=== PATIENT | female | born 1960 | race Caucasian/White ===

== ENCOUNTER 2016-06-05 09:50 | Emergency (ER) | payer MEDICARE, MEDICAID ==
--- NOTE | 2016-06-05 09:59 | ED ---
Dizziness - HPI Summary HPI Summary: 56 female presents today complaining of dizziness and nausea that began approximately 1 week ago that has not gotten any better. States the dizziness feels like the room is spinning and comes and goes. The episodes last a few minutes. She has had some nausea but has no vomited. Denies head pain, headache , ear fullness, congestion, sore throat, fever/chills, abdominal pain and trouble going to the bathroom. She does admit to urinary frequency. Admits to Diabetes but does not remember the rest. No chest pain or difficulty breathing. Denies lightheadedness and weakness. Sitting down makes it better. Walking and changing position from sitting to standing makes the dizziness worse. She has not taken any medication for the current symptoms. Also admits to blurry vision sometimes but denies vision loss and hearing loss. - History Of Current Complaint Chief Complaint: EDGeneral Stated Complaint: DIZZY/NAUSEA Time Seen by Provider: 06/05/16 09:58 Hx Obtained From: Patient Onset/Duration: Still Present Timing: Intermittent Episode Lasting - minutes Severity Currently: None Character: Room Spinning, Dizzy Aggravating Factor(s): Position Change Alleviating Factor(s): Rest - sitting down Associated Signs And Symptoms: Positive: Nausea, Decreased Oral Intake - Allergies/Home Medications Allergies/Adverse Reactions: Allergies Allergy/AdvReac Type Severity Reaction Status Date / Time Penicillins Allergy Mild BODY EDEMA Verified 06/05/16 10:22 BEES Allergy Mild BODY EDEMA Uncoded 06/05/16 09:52 PMH/Surg Hx/FS Hx/Imm Hx Endocrine/Hematology History: Reports: Hx Diabetes - TYPE 2 Cardiovascular History: Reports: Hx Hypertension - ON MEDS Denies: Other Cardiovascular Problems/Disorders Respiratory History: Denies: Other Respiratory Problems/Disorders GI History: Reports: Hx Gastroesophageal Reflux Disease Denies: Other GI Disorders Musculoskeletal History: Reports: Hx Tendonitis - RIGHT HAND Sensory History: Reports: Hx Contacts or Glasses - GLASSES Denies: Hx Hearing Aid Opthamlomology History: Reports: Hx Contacts or Glasses - GLASSES Neurological History: Reports: Hx Migraine Denies: Other Neuro Impairments/Disorders - Cancer History Hx Chemotherapy: No Hx Radiation Therapy: No - Surgical History Surgery Procedure, Year, and Place: RIGHT WRIST, 2010, [facility]. GALLBLADDER, 1984, [facility]. 03/18/12, LEFT ELBOW, [facility] Hx Anesthesia Reactions: No Infectious Disease History: No Infectious Disease History: Denies: Traveled Outside the [place] in Last 30 Days - Family History Known Family History: Positive: None - Social History Alcohol Use: None Substance Use Type: Reports: None Hx Tobacco Use: Yes - OCCATIONALLY Amount Used/How Often: 2-3 CIGS A DAY Have You Smoked in the Last Year: Yes Review of Systems Constitutional: Negative Positive: Blurred Vision ENT: Negative Cardiovascular: Negative Respiratory: Negative Positive: Nausea Positive: frequency Musculoskeletal: Negative Skin: Negative Neurological: Negative Psychological: Normal All Other Systems Reviewed And Are Negative: Yes Physical Exam Triage Information Reviewed: Yes Vital Signs On Initial Exam: Initial Vitals Temp Pulse Resp BP Pulse Ox 98.3 F 54 12 118/56 100 06/05/16 09:52 06/05/16 09:52 06/05/16 09:52 06/05/16 09:52 06/05/16 09:52 Vital Signs Reviewed: Yes Appearance: Positive: Well-Appearing, No Pain Distress, Well-Nourished Skin: Positive: Warm, Skin Color Reflects Adequate Perfusion - < 2 seconds, Dry , Other - some tenting of skin, dry mucous membranes Head/Face: Positive: Normal Head/Face Inspection Eyes: Positive: Normal, EOMI, VIANNEY, Conjunctiva Clear ENT: Positive: Normal ENT inspection, Hearing grossly normal, Pharynx normal, TMs normal - no signs of cerumen Dental: Negative: Cervical Lymphadenopathy Neck: Positive: Supple, Nontender Respiratory/Lung Sounds: Positive: Clear to Auscultation, Breath Sounds Present Cardiovascular: Positive: Normal, RRR, Pulses are Symmetrical in both Upper and Lower Extremities - 2+ radial and pedal bilaterally Abdomen Description: Positive: Nontender, No Organomegaly, Soft Bowel Sounds: Positive: Present Musculoskeletal: Positive: Normal, Strength/ROM Intact - both upper and lower extremities Neurological: Positive: Normal, Sensory/Motor Intact, Alert, Oriented to Person Place, Time, CN Intact II-III, Reflexes Intact, NV Bundle Intact Distally, Normal Gait, Finger to Nose - normal, Speech Normal. Negative: Facial Droop, Slurred Speech, Rhom[place], Pronator Drift Present Psychiatric: Positive: Normal, Affect/Mood Appropriate Diagnostics - Vital Signs Vital Signs Temp Pulse Resp BP Pulse Ox 06/05/16 09:52 98.3 F 54 12 118/56 100 - Laboratory Result Diagrams: 06/05/16 10:50 06/05/16 10:50 Lab Statement: Any lab studies that have been ordered have been reviewed, and results considered in the medical decision making process. Re-Evaluation - Re-Evaluation First Eval Re-Evaluation Time: 11:56 Change: Improved Comment: no dizziness and nausea has improved. Dizzy Course/Dx - Course Course Of Treatment: labs and UA obtained. given zofran and fluids. labs and UA were unremarkable. Patient appeared to be in no acute distress and very well- appearing. she has no complaints and vitals signs are completely normal. will be d/c with dx of vertigo and told to follow up with PCP. - Diagnoses Differential Diagnosis/HQI/PQRI: Benign Paroxysmal Positional Vertigo, Hypovolemia, Labyrinthitis, Meniere's Disease, Other Provider Diagnoses: Dizziness, Nausea, Intermittent vertigo Discharge - Discharge Plan Condition: Stable Disposition: HOME Prescriptions: Ondansetron TAB* [Zofran Tab*] 4 mg PO Q6H PRN #3 tab PRN Reason: Nausea Patient Education Materials: Vertigo (ED), Dizziness (ED) Referrals: Criss Lau MD [Primary Care Provider] - Additional Instructions: You may want to try Meclizine OTC during episodes of dizziness. Do not drive during episodes of dizziness. Follow up with your primary care provider if the dizziness persists and for management of vertigo. IF symptoms worsen such as vomiting, increasing dizziness, numbness/tingling, muscle weakness, or slurred speech please return to ED immediately.
[2016-06-05] MEDS ORDERED: NS 0.9% 1000 ML* 1,000 ML IV ONE (10:23)
[2016-06-05] MEDS ORDERED: Ondansetron INJ* 2 MG/ML VIAL IV ONE (10:23)
[2016-06-05 11:06] LABS: Hematocrit 42 % (35-47); Mean Corpuscular HGB Conc 31 g/dl (31-36); Mean Corpuscular Hemoglobin 25 pg (27-31); Mean Corpuscular Volume 80 fL (80-97); Mean Platelet Volume 8 um3 (7.4-10.4); Red Blood Count 5.27 10^6/ul (4.0-5.4); Red Cell Distribution Width 18 % (10.5-15); White Blood Count 9.4 10^3/ul (3.5-10.8)
[2016-06-05 11:18] LABS: ALT 16 U/L (7-52); Albumin 3.6 g/dL (3.2-5.2); Alkaline Phosphatase 90 U/L (34-104); BUN/Creatinine Ratio 17.7 (8-20); Blood Urea Nitrogen 11 mg/dL (6-24); CO2 Carbon Dioxide 25 mmol/L (22-32); Calcium 9.3 mg/dL (8.6-10.3); Chloride 105 mmol/L (101-111); EGFR African American 128.1 (>60); EGFR Non-African American 99.6 (>60); Globulin 3.9 g/dL (2-4); Glucose 83 mg/dL (70-100); Sodium 136 mmol/L (133-145); Total Protein 7.5 g/dL (6.4-8.9)
[2016-06-05 11:27] LABS: Urine Bilirubin Negative (Negative); Urine Glucose Negative (Negative); Urine Nitrite Negative (Negative)
[2016-06-05 11:52] LABS: TSH (Thyroid Stimulating Horm) 2.34 mcIU/mL (0.34-5.60)
[2016-06-05 12:16] VITALS: BP 140/60
== END 2016-06-05 12:16 | disposition home or self-care (01) ==
LOC: ED 09:50
DX: R42 Dizziness and giddiness (principal); R11.0 Nausea; H53.8 Other visual disturbances
CPT/HCPCS: 36415; 80053; 81003; 83605; 84443; 85025; 96374; 99282; J2405

== ENCOUNTER 2016-07-10 22:37 | Inpatient (IN) | payer MEDICARE, MEDICAID ==
[2016-07-10] MEDS ORDERED: Morphine INJ* 2 MG/ML 1 ML SYRINGE IV ONE ×2 (22:43→23:29)
[2016-07-10] MEDS ORDERED: NS 0.9% 1000 ML* 1,000 ML IV ONE (22:43)
[2016-07-10] MEDS ORDERED: Ondansetron INJ* 2 MG/ML VIAL IV ONE (22:43)
[2016-07-10 23:08] LABS: Hematocrit 41 % (35-47); Hemoglobin 13.3 g/dl (12.0-16.0); Mean Corpuscular HGB Conc 32 g/dl (31-36); Mean Corpuscular Hemoglobin 24 pg (27-31); Mean Corpuscular Volume 76 fL (80-97); Mean Platelet Volume 8 um3 (7.4-10.4); Red Blood Count 5.46 10^6/ul (4.0-5.4); Red Cell Distribution Width 17 % (10.5-15); White Blood Count 23.4 10^3/ul (3.5-10.8)
[2016-07-10 23:14] LABS: Add Diff/Slide Review? Slide Review Added; Comments Flag Yes
[2016-07-10 23:21] LABS: Albumin 3.9 g/dL (3.2-5.2); BUN/Creatinine Ratio 10.9 (8-20); C Reactive Protein 47.42 mg/L (< 5.00); Calcium 9.5 mg/dL (8.6-10.3); EGFR Non-African American 114.3 (>60); Globulin 4.2 g/dL (2-4); Magnesium 1.8 mg/dL (1.9-2.7); Potassium 3.4 mmol/L (3.5-5.0); Total Bilirubin 1.4 mg/dL (0.2-1.0); Total Protein 8.1 g/dL (6.4-8.9)
--- NOTE | 2016-07-10 23:41 | ED ---
Murtaza Kang Alok, scribed for Gera Allen MD on 07/10/16 at 2254 . Abdominal Pain/Female - HPI Summary HPI Summary: 56 y/o female presents to the ED with epigastric abd pain beginning at 1200 and remaining constant ever since. Pt states she has taken Tylenol earlier today with no affect and nothing else has help/worsened the pain. Pt states she has been eating regular, soft meals today and last had a BM this morning. She reports some nausea but denies any vomiting, diarrhea, or urinary symptoms. She last saw her PCP 4 days ago for a regular physical. - History of Current Complaint Chief Complaint: EDAbdPain Stated Complaint: ABD PAIN Time Seen by Provider: 07/10/16 22:39 Hx Obtained From: Patient ?: No Onset/Duration: Gradual Onset, Lasting Hours, Still Present Timing: Constant Severity Initially: Moderate Severity Currently: Moderate Pain Intensity: 8 Pain Scale Used: 0-10 Numeric Location: Epigastric Radiates: No Aggravating Factor(s): Nothing Alleviating Factor(s): Nothing Associated Signs and Symptoms: Positive: Nausea. Negative: Urinary Symptoms, Vomiting, Diarrhea Allergies/Adverse Reactions: Allergies Allergy/AdvReac Type Severity Reaction Status Date / Time Penicillins Allergy Mild BODY EDEMA Verified 06/05/16 10:22 BEES Allergy Mild BODY EDEMA Uncoded 06/05/16 09:52 Home Medications: Home Medications Atorvastatin* [Lipitor*] 20 mg PO DAILY 07/11/16 [History Confirmed 07/11/16] Gabapentin CAP(*) [Neurontin 100 mg CAP(*)] 100 mg PO TID 07/11/16 [History Confirmed 07/11/16] Zolmitriptan 5 mg PO BID 07/11/16 [History Confirmed 07/11/16] amLODIPine TAB* [Norvasc TAB*] 2.5 mg PO DAILY 07/11/16 [History Confirmed 07/11] PMH/Surg Hx/FS Hx/Imm Hx Endocrine/Hematology History: Reports: Hx Diabetes - TYPE 2 Cardiovascular History: Reports: Hx Hypertension - ON MEDS Denies: Other Cardiovascular Problems/Disorders Respiratory History: Denies: Other Respiratory Problems/Disorders GI History: Reports: Hx Gastroesophageal Reflux Disease Denies: Other GI Disorders Musculoskeletal History: Reports: Hx Tendonitis - RIGHT HAND Sensory History: Reports: Hx Contacts or Glasses - GLASSES Denies: Hx Hearing Aid Opthamlomology History: Reports: Hx Contacts or Glasses - GLASSES Neurological History: Reports: Hx Migraine Denies: Other Neuro Impairments/Disorders - Cancer History Hx Chemotherapy: No Hx Radiation Therapy: No - Surgical History Surgery Procedure, Year, and Place: RIGHT WRIST, 2010, [facility]. GALLBLADDER, 1985, [facility]. 03/18/12, LEFT ELBOW, [facility] Hx Anesthesia Reactions: No Infectious Disease History: No Infectious Disease History: Denies: Traveled Outside the [place] in Last 30 Days - Family History Known Family History: Negative: Cardiac Disease, Diabetes - Social History Occupation: Employed Part-time Alcohol Use: None Substance Use Type: Reports: None Hx Tobacco Use: Yes - OCCATIONALLY Smoking Status (MU): Never Smoked Tobacco Amount Used/How Often: 2-3 CIGS A DAY Have You Smoked in the Last Year: Yes Review of Systems Negative: Fever Positive: Abdominal Pain, Nausea. Negative: Vomiting, Diarrhea All Other Systems Reviewed And Are Negative: Yes Physical Exam Triage Information Reviewed: Yes Vital Signs On Initial Exam: Initial Vitals Temp Pulse Resp BP Pulse Ox 97.3 F 66 16 136/76 98 07/10/16 22:38 07/10/16 22:38 07/10/16 22:38 07/10/16 22:38 07/10/16 22:38 Vital Signs Reviewed: Yes Appearance: Positive: Ill-Appearing, Pain Distress - moderate discomfort Skin: Positive: Warm Eyes: Positive: VIANNEY ENT: Positive: Hearing grossly normal Neck: Positive: Supple Respiratory/Lung Sounds: Positive: Breath Sounds Present Cardiovascular: Positive: Normal Abdomen Description: Positive: Soft, Guarding, Other: - moderate diffuse tenderness Musculoskeletal: Positive: Strength/ROM Intact Neurological: Positive: Sensory/Motor Intact, Alert, Oriented to Person Place, Time Psychiatric: Positive: Affect/Mood Appropriate Diagnostics - Vital Signs Vital Signs Temp Pulse Resp BP Pulse Ox 07/10/16 22:38 97.3 F 66 16 136/76 98 - Laboratory Lab Results: Lab Results 07/10/16 07/10/16 07/10/16 Range/Units 22:55 22:55 22:55 WBC 23.4 H (3.5-10.8) 10^3/ul RBC 5.46 H (4.0-5.4) 10^6/ul Hgb 13.3 (12.0-16.0) g/dl Hct 41 (35-47) % MCV 76 L (80-97) fL MCH 24 L (27-31) pg MCHC 32 (31-36) g/dl RDW 17 H (10.5-15) % Plt Count 452 H (150-450) 10^3/ul MPV 8 (7.4-10.4) um3 Neut % (Auto) 89.6 H (38-83) % Lymph % (Auto) 5.9 L (25-47) % [place] % (Auto) 3.6 (1-9) % Eos % (Auto) 0.2 (0-6) % Baso % (Auto) 0.7 (0-2) % Absolute Neuts (auto) 21.0 H (1.5-7.7) 10^3/ul Absolute Lymphs (auto) 1.4 (1.0-4.8) 10^3/ul Absolute Monos (auto) 0.8 (0-0.8) 10^3/ul Absolute Eos (auto) 0.1 (0-0.6) 10^3/ul Absolute Basos (auto) 0.2 (0-0.2) 10^3/ul Absolute Nucleated RBC 0 10^3/ul Nucleated RBC % 0 Sodium 133 (133-145) mmol/L Potassium 3.4 L (3.5-5.0) mmol/L Chloride 102 (101-111) mmol/L Carbon Dioxide 20 L (22-32) mmol/L Anion Gap 11 (2-11) mmol/L BUN 6 (6-24) mg/dL Creatinine 0.55 (0.51-0.95) mg/dL Est GFR ( Amer) 147.0 (>60) Est GFR (Non-Af Amer) 114.3 (>60) BUN/Creatinine Ratio 10.9 (8-20) Glucose 164 H (70-100) mg/dL Lactic Acid 1.7 (0.5-2.0) mmol/L Calcium 9.5 (8.6-10.3) mg/dL Magnesium 1.8 L (1.9-2.7) mg/dL Total Bilirubin 1.40 H (0.2-1.0) mg/dL AST 11 L (13-39) U/L ALT 12 (7-52) U/L Alkaline Phosphatase 105 H (34-104) U/L C-Reactive Protein 47.42 H (< 5.00) mg/L Total Protein 8.1 (6.4-8.9) g/dL Albumin 3.9 (3.2-5.2) g/dL Globulin 4.2 H (2-4) g/dL Albumin/Globulin Ratio 0.9 L (1-3) Lipase 15 (11.0-82.0) U/L Result Diagrams: 07/11/16 05:17 07/11/16 05:17 Lab Statement: Any lab studies that have been ordered have been reviewed, and results considered in the medical decision making process. - CT Abd/Pel CT CT Interpretation: Positive (See Comments) - IMPRESSION: SMALL BOWEL OBSTRUCTION WITH PROBABLE RIGHT PELVIC TRANSITION POINT WITHOUT ABSCESS OR FREE AIR CT Interpretation Completed By: Radiologist Re-Evaluation - Re-Evaluation First Eval Re-Evaluation Time: 02:31 - results d/w pt Abdominal Pain Fem Course/Dx - Diagnoses Provider Diagnoses: SBO (small bowel obstruction) - Provider Notifications Discussed Care Of Patient With: Dr. Kim (Surgery) @ 0227. Dr. Decker ( Hospitalist) @ 0228 - Will admit pt Instructed by Provider To: Admit As Inpatient - Critical Care Time Critical Care Time: 30-74 min Discharge - Discharge Plan Condition: Stable Disposition: ADMITTED TO [facility] The documentation as recorded by the Murtaza lee Alok accurately reflects the service I personally performed and the decisions made by , Gera Allen MD.
[2016-07-11 00:31] LABS: Urine Bilirubin Negative (Negative); Urine Glucose Negative (Negative); Urine Nitrite Negative (Negative)
[2016-07-11] MEDS ORDERED: Metoclopramide IV* 5 MG/ML 2 ML VIAL ONE (00:46)
[2016-07-11] MEDS ORDERED: Metoclopramide IV* 5 MG/ML 2 ML VIAL IV ONE ×2 (00:46)
[2016-07-11] MEDS ORDERED: Iodixanol* (CONTRAST) 320 MG/ML 100 ML SDV IV ONE (00:48)
[2016-07-11] MEDS ORDERED: Acetaminophen SUPP* 650 MG SUPP PR PRN (02:38)
[2016-07-11] MEDS ORDERED: NS 0.9% 1000 ML* 1,000 ML IV ONE (02:45)
[2016-07-11] MEDS ORDERED: hydrALAZINE IV* 20 MG/ML VIAL IV PRN (03:03)
--- NOTE | 2016-07-11 03:03 | HP ---
H&P (Free Text) History and Physical: PCP: Marija Lau MD Date/Time of Evaluation: 07/11/2016 0255 CC: abdominal pain HPI: Mrs Clifton is a 56YO female HX borderline cognitive functioning, DM2, HTN, HLD, & open cholecystectomy who is a poor historian, ie when asked if she has had her tonsils out states, "I don't know." She presents 1 week after onset of head cold and congestion which is resolving, but noticing gradually worsening generalized abdominal pain 2 days ago with onset of nausea last night for which she presents. She had F/C with the cold, but none more recently. Last BM was yesterday morning, characterized as normal without black or bloody aspect. She denies similar episodes. Evaluation is notable for a CT abd/pel W read as SBO. Positive SIRS for fever & leukocytosis. PMedHx DM2 w/ peripheral polyneuropathy HTN HLD migraines GERD depression Allergies Penicillins Allergy (Mild, Verified 06/05/16 10:22) BODY EDEMA BODY EDEMA BEES Allergy (Mild, Uncoded 06/05/16 09:52) BODY EDEMA BODY EDEMA Ambulatory Orders Aspirin Low Dose 81 mg PO DAILY 03/11/12 Citalopram TAB* 30 mg PO DAILY 03/11/12 Nexium 40 mg PO DAILY 03/11/12 Propranolol TAB* 80 mg PO DAILY 03/11/12 metFORMIN TAB* 500 mg PO DAILY 03/11/12 Atorvastatin* [Lipitor*] 20 mg PO DAILY 07/11/16 Gabapentin CAP(*) [Neurontin 100 mg CAP(*)] 100 mg PO TID 07/11/16 Zolmitriptan 5 mg PO BID 07/11/16 amLODIPine TAB* [Norvasc TAB*] 2.5 mg PO DAILY 07/11/16 PSurgHx open cholecytstectomy L ulnar nerve release R hand surgeries x2 SocHx: former social smoker, no alcohol or recreational drugs; lives alone; 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; 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 FamHx: positive for unknown cancer, HTN, DM2 ROS: as above, otherwise reviewed and all were negative Constitutional: NAD, normally developed, obese white female vitals: Vital Signs Temp 38.1 C 07/11/16 02:01 Pulse 77 07/11/16 02:00 Resp 16 07/10/16 23:46 BP 127/55 07/11/16 01:57 Pulse Ox 96 07/11/16 02:00 Intake & Output 07/10/16 07/10/16 07/11/16 11:59 23:59 11:59 Weight 82.1 kg 82.1 kg HEENM: atraumatic; sclera/conjunctiva: non-icteric/clear; hearing: clinically intact; oropharynx: clear, mucosa moist Neck: soft tissue: no nuchal rigidity; thyroid: normal Pulmonary: clear to auscultation bilaterally, good aeration, no accessory muscle use CV: RR/RR, normal S1S2, no carotid bruit, no jugular venous distention, 2+ B DP/ PT, no edema Abdominal: soft, non-distended, moderately diffusely tender w/ voluntary guarding but no rebound/rigidity, hypoactive bowel sounds, no hepatosplenomegaly or masses, no costovertebral angle tenderness Musculoskeletal: general: grossly intact; gait: stable Integumental: normal appearance and texture Psychiatric orientation: AA&O to PPS affect: calm mood: cooperative eye contact: fair to good content: disorganized (suspect this is baseline) responses: timely insight: fair to poor Testing: Lab Results 07/10/16 07/10/16 07/10/16 Range/Units 22:55 22:55 22:55 WBC 23.4 H (3.5-10.8) 10^3/ul RBC 5.46 H (4.0-5.4) 10^6/ul Hgb 13.3 (12.0-16.0) g/dl Hct 41 (35-47) % MCV 76 L (80-97) fL MCH 24 L (27-31) pg MCHC 32 (31-36) g/dl RDW 17 H (10.5-15) % Plt Count 452 H (150-450) 10^3/ul MPV 8 (7.4-10.4) um3 Neut % (Auto) 89.6 H (38-83) % Lymph % (Auto) 5.9 L (25-47) % [place] % (Auto) 3.6 (1-9) % Eos % (Auto) 0.2 (0-6) % Baso % (Auto) 0.7 (0-2) % Absolute Neuts (auto) 21.0 H (1.5-7.7) 10^3/ul Absolute Lymphs (auto) 1.4 (1.0-4.8) 10^3/ul Absolute Monos (auto) 0.8 (0-0.8) 10^3/ul Absolute Eos (auto) 0.1 (0-0.6) 10^3/ul Absolute Basos (auto) 0.2 (0-0.2) 10^3/ul Absolute Nucleated RBC 0 10^3/ul Nucleated RBC % 0 Sodium 133 (133-145) mmol/L Potassium 3.4 L (3.5-5.0) mmol/L Chloride 102 (101-111) mmol/L Carbon Dioxide 20 L (22-32) mmol/L Anion Gap 11 (2-11) mmol/L BUN 6 (6-24) mg/dL Creatinine 0.55 (0.51-0.95) mg/dL Est GFR ( Amer) 147.0 (>60) Est GFR (Non-Af Amer) 114.3 (>60) BUN/Creatinine Ratio 10.9 (8-20) Glucose 164 H (70-100) mg/dL Lactic Acid 1.7 (0.5-2.0) mmol/L Calcium 9.5 (8.6-10.3) mg/dL Magnesium 1.8 L (1.9-2.7) mg/dL Total Bilirubin 1.40 H (0.2-1.0) mg/dL AST 11 L (13-39) U/L ALT 12 (7-52) U/L Alkaline Phosphatase 105 H (34-104) U/L C-Reactive Protein 47.42 H (< 5.00) mg/L Total Protein 8.1 (6.4-8.9) g/dL Albumin 3.9 (3.2-5.2) g/dL Globulin 4.2 H (2-4) g/dL Albumin/Globulin Ratio 0.9 L (1-3) Lipase 15 (11.0-82.0) U/L Urine Color Urine Appearance Urine pH (5-9) Ur Specific [place] (1.010-1.030) Urine Protein (Negative) Urine Ketones (Negative) Urine Blood (Negative) Urine Nitrate (Negative) Urine Bilirubin (Negative) Urine Urobilinogen (Negative) Ur Leukocyte Esterase (Negative) Urine Glucose (Negative) 07/11/16 Range/Units 00:10 WBC (3.5-10.8) 10^3/ul RBC (4.0-5.4) 10^6/ul Hgb (12.0-16.0) g/dl Hct (35-47) % MCV (80-97) fL MCH (27-31) pg MCHC (31-36) g/dl RDW (10.5-15) % Plt Count (150-450) 10^3/ul MPV (7.4-10.4) um3 Neut % (Auto) (38-83) % Lymph % (Auto) (25-47) % [place] % (Auto) (1-9) % Eos % (Auto) (0-6) % Baso % (Auto) (0-2) % Absolute Neuts (auto) (1.5-7.7) 10^3/ul Absolute Lymphs (auto) (1.0-4.8) 10^3/ul Absolute Monos (auto) (0-0.8) 10^3/ul Absolute Eos (auto) (0-0.6) 10^3/ul Absolute Basos (auto) (0-0.2) 10^3/ul Absolute Nucleated RBC 10^3/ul Nucleated RBC % Sodium (133-145) mmol/L Potassium (3.5-5.0) mmol/L Chloride (101-111) mmol/L Carbon Dioxide (22-32) mmol/L Anion Gap (2-11) mmol/L BUN (6-24) mg/dL Creatinine (0.51-0.95) mg/dL Est GFR ( Amer) (>60) Est GFR (Non-Af Amer) (>60) BUN/Creatinine Ratio (8-20) Glucose (70-100) mg/dL Lactic Acid (0.5-2.0) mmol/L Calcium (8.6-10.3) mg/dL Magnesium (1.9-2.7) mg/dL Total Bilirubin (0.2-1.0) mg/dL AST (13-39) U/L ALT (7-52) U/L Alkaline Phosphatase (34-104) U/L C-Reactive Protein (< 5.00) mg/L Total Protein (6.4-8.9) g/dL Albumin (3.2-5.2) g/dL Globulin (2-4) g/dL Albumin/Globulin Ratio (1-3) Lipase (11.0-82.0) U/L Urine Color Yellow Urine Appearance Clear Urine pH 7.0 (5-9) Ur Specific [place] 1.008 L (1.010-1.030) Urine Protein Negative (Negative) Urine Ketones 1+ H (Negative) Urine Blood Negative (Negative) Urine Nitrate Negative (Negative) Urine Bilirubin Negative (Negative) Urine Urobilinogen Negative (Negative) Ur Leukocyte Esterase Negative (Negative) Urine Glucose Negative (Negative) CXR, personally reviewed: no acute process CT abd/pel W, personally reviewed: reported as SBO, report pending Impression: 56F HX DM2, HTN, HLD found to have SBO DIAGNOSIS & PLAN Primary SIRS 2nd SBO : NPO for bowel rest : NG to LIS : pain control : empiric ciprofloxacin & metronidazole : strict I&Os : Lizzeth Kim MD surgery consulted by ED, will follow : supportive care Secondary DM2 w/ peripheral polyneuropathy : A1c 6.2 06/2016 : Q4H glucometry while NPO : basal/correctional protocol : hold metformin & gabapentin while NPO HTN : hold anti-hypertensives, PRN IV hydralazine w/ parameters HLD : hold statin while NPO depression : hold citalopram while NPO GERD : IV pantoprazole Admission Rational: inpatient for medical management of SBO not anticipated to resolve adequately to allow discharge w/i 48h DVTp: heparin SQ & SCDS Code Status: full
[2016-07-11] MEDS ORDERED: Ciprofloxacin IV(*) 400 MG in D5W 250 ML BAG* 160 ML IVPB SCH (03:30)
[2016-07-11] MEDS ORDERED: PROCHLORPERAZINE INJ 5 MG/ML 2 ML VIAL IV PRN (03:48)
[2016-07-11] MEDS: Ondansetron INJ* 2 MG/ML VIAL IV PRN ×2 (04:43→12:03)
[2016-07-11] MEDS: HYDROmorphone* 1 MG/ML 1 ML SYR IV PRN ×2 (04:44→20:00)
[2016-07-11] MEDS: Insulin LISPRO* 1 UNITS UNIT SUBCUT SCH ×5 (04:47→19:56)
[2016-07-11] MEDS: Pantoprazole IV* 40 MG IV SCH ×2 (04:47→09:07)
[2016-07-11] MEDS: Ciprofloxacin IV(*) 400 MG in D5W 250 ML BAG* 160 ML IVPB SCH ×2 (04:52→17:30)
[2016-07-11 05:44] LABS: Hematocrit 39 % (35-47); Hemoglobin 12.3 g/dl (12.0-16.0); Mean Corpuscular HGB Conc 32 g/dl (31-36); Mean Corpuscular Hemoglobin 24 pg (27-31); Mean Corpuscular Volume 76 fL (80-97); Mean Platelet Volume 8 um3 (7.4-10.4); Red Blood Count 5.06 10^6/ul (4.0-5.4); Red Cell Distribution Width 17 % (10.5-15); White Blood Count 24.3 10^3/ul (3.5-10.8)
[2016-07-11 05:50] LABS: Add Diff/Slide Review? Slide Review Added; Comments Flag Yes
[2016-07-11] MEDS: metroNIDAZOLE IV 500 MG/100ML* 500 MG/100 ML BAG IVPB SCH ×3 (05:57→22:37)
[2016-07-11 06:03] LABS: BUN/Creatinine Ratio 10.6 (8-20); Calcium 8.8 mg/dL (8.6-10.3); EGFR African American 176.3 (>60); EGFR Non-African American 137.1 (>60); Magnesium 1.8 mg/dL (1.9-2.7); Potassium 3.3 mmol/L (3.5-5.0)
[2016-07-11] MEDS: NS 0.9% 1000 ML* 1,000 ML IV SCH (07:34)
--- NOTE | 2016-07-11 08:05 | RAD ---
INDICATION: Fever COMPARISON: November 20, 2013 TECHNIQUE: PA and lateral dual-energy views were obtained. FINDINGS: Bones/Soft Tissues: There are no acute bony findings. Cardiomediastinal: The cardiomediastinal silhouette is normal. Lungs: There are no infiltrates. Pleura: There are no pleural effusions. Other: There are clips in the gallbladder fossa. IMPRESSION: NO ACTIVE DISEASE
--- NOTE | 2016-07-11 08:48 | RAD ---
INDICATION: Small bowel obstruction COMPARISON: None TECHNIQUE: Erect and supine views of the abdomen are submitted. FINDINGS: Bones: There are no acute bony findings. Soft tissues: The soft tissues appear normal. The psoas margins are sharp. Bowel gas pattern: There are scattered air-fluid levels with dilated small bowel loops in central abdomen. The colon appears largely decompressed. The findings are compatible with small bowel obstruction. Calcifications: There are no abnormal calcifications. Other: There are clips in the gallbladder fossa. IMPRESSION: SMALL BOWEL OBSTRUCTION. SUGGEST FOLLOW-UP.
[2016-07-11] MEDS: KCL 10 MEQ/50 ML IVPREMIX* 10 MEQ/50 ML BAG IV SCH ×2 (09:03→12:03)
--- NOTE | 2016-07-11 09:25 | CONS ---
SURGICAL CONSULTATION: DATE OF CONSULT: 07/11/16 REASON FOR CONSULTATION: Small bowel obstruction. HISTORY OF PRESENT ILLNESS: This is a 56-year-old female who was admitted to the [facility] after presenting to the emergency room last night with abdominal pain of 2 days' duration. She has a history of prior open cholecystectomy, no other surgeries. She has a borderline cognitive function. She had worsening pain, nausea and no vomiting. She had a bowel movement Ritu morning which was normal. She does not recall the last time she passed flatus. In the emergency room, the patient underwent evaluation by emergency department staff and was found to have elevated WBCs at 23.4. She had CT scan performed which showed small bowel obstruction with probable right pelvic transition point without abscess or free air. The patient was made NPO. A nasogastric tube was apparently placed but the patient did not tolerate this and is refusing at the present. The patient was admitted to the hospitalist service and started on IV antibiotics. PAST MEDICAL HISTORY: 1. Significant for obesity. 2. Type 2 diabetes with peripheral polyneuropathy. 3. Hypertension. 4. Hyperlipidemia. 5. Migraines. 6. Gastroesophageal reflux disease. 7. Depression. PAST SURGICAL HISTORY: Open cholecystectomy in the . HOME MEDICATIONS: 1. Gabapentin. 2. Amlodipine. 3. Zolmitriptan. 4. Lipitor. 5. Aspirin. 6. Propranolol. 7. Nexium. 8. Metformin. 9. Citalopram. ALLERGIES: PENICILLINS cause swelling. FAMILY HISTORY: Cancer, hypertension, diabetes. SOCIAL HISTORY: No tobacco, alcohol or drug use. Lives alone. PHYSICAL EXAMINATION: T-max 100.5, T-current 97.7, pulse 89, respirations 16, blood pressure 136/58, O2 sat 99% on room air. Head appears normocephalic and sclerae anicteric. Mucous membranes appear moist. The lungs are clear bilaterally. Heart: Regular. S1, S2. Abdomen has well healed scar right upper quadrant. Bowel sounds are diminished throughout. Abdomen is not distended. There is diffuse tenderness to light and deep palpation with also tenderness to percussion. Extremities are warm. DIAGNOSTIC STUDIES/LAB DATA: WBCs 24.3, hemoglobin 12.3, hematocrit 39, platelets 377. Chemistry, sodium 136, potassium 3.3, chloride 106, bicarb 21, BUN 5, creatinine 0.47, glucose 177. Urinalysis 1+ ketones, otherwise negative. Radiology report: Preliminary findings as reported above. IMPRESSION: This 56-year-old female with cognitive disability, history of open cholecystectomy and findings of complete small bowel obstruction on CT scan. She has leukocytosis and has had a fever. She likely will require operative intervention to resolve this process. PLAN/RECOMMENDATIONS: I discussed my concerns with the patient. I explained that nasogastric tube decompression may be helpful. However, she again refused this. I will order repeat abdominal series to see if there is any improvement in her obstruction, although I suspect not. [facility] will follow subsequently and if she is not improved or worsened, she will require surgical exploration. [id number]/[facility] #: [id number] EBENEZER
--- NOTE | 2016-07-11 09:37 | RAD ---
INDICATION: Abdominal pain. COMPARISON: There are no prior studies available for comparison. TECHNIQUE: A CT scan of the abdomen and pelvis was performed with intravenous and oral contrast following intravenous injection of 100 ml of Visipaque 320 nonionic contrast. Contiguous axial sections were obtained from the lung bases through the symphysis pubis. Images were reconstructed in the coronal and sagittal planes. FINDINGS: The lung bases are clear. No pleural effusion is present. The liver and spleen are normal in size. The liver is decreased in attenuation consistent with fatty infiltration. No significant focal abnormality is seen. The patient is status post cholecystectomy. The pancreas appears to be within normal limits. The kidneys and adrenal glands are normal in size. No hydronephrosis is seen. No significant focal renal abnormality is seen. The aorta is normal in caliber and demonstrates homogeneous contrast opacification. No significant enlarged retroperitoneal lymph nodes are seen. The stomach is moderately distended. There is mild to moderate distention of the mid and distal small bowel with transition point in the right lower quadrant. There is suggestion of a smaller blind-ending loop with calcifications possibly representing a Meckel's diverticulum. There is mild mesenteric edema. The appendix is within normal limits. There is a small amount of air within the colon. There is no evidence for diverticulitis or colitis. The uterus is anteverted and normal in size. There is suggestion of a fibroid arising from the fundus of the uterus on the right side measuring 2.3 x 1.5 cm in size. No free intraperitoneal air or fluid is seen. No significant focal osseous abnormality is seen. The results of this exam were called to Dr. Flores. IMPRESSION: MODERATE GRADE DISTAL SMALL BOWEL OBSTRUCTION. THERE IS AN ADJACENT STRUCTURE WITH A BLIND ENDING LOOP SUGGESTING THE POSSIBILITY OF A MECKEL'S DIVERTICULUM.
[2016-07-11] MEDS: Metoprolol Tartrate IV* 1 MG/ML 5 ML VIAL IV SCH ×3 (09:56→22:33)
[2016-07-11] MEDS ORDERED: Bupivacaine 0.25% EPI 200,000* 30 ML SDV ONE (12:24)
[2016-07-11] MEDS ORDERED: metroNIDAZOLE IV 500 MG/100ML* 500 MG/100 ML BAG IVPB ONE ×2 (12:38→13:00)
[2016-07-11] MEDS ORDERED: Midazolam* 1 MG/ML 5 ML VIAL (5 MG) ONE (12:43)
[2016-07-11] MEDS ORDERED: Succinylcholine* 20 MG/ML 10 ML VIAL ONE (12:47)
[2016-07-11] MEDS ORDERED: fentaNYL* 50 MCG/ML 2 ML VIAL (100 MCG VIAL) ONE (12:47)
[2016-07-11] MEDS ORDERED: Atracurium* 10 MG/ML 10 ML VIAL ONE (12:47)
[2016-07-11] MEDS ORDERED: Propofol* 10 MG/ML 20 ML BTL IV PUSH ONE (12:47)
[2016-07-11] MEDS ORDERED: GENTAMICIN ADULT IVPB ONE (13:00)
[2016-07-11] MEDS ORDERED: NS 0.9% IVPB ONE (13:00)
[2016-07-11] MEDS ORDERED: fentaNYL* 50 MCG/ML 5 ML VIAL (250 MCG VIAL) ONE (13:37)
--- NOTE | 2016-07-11 14:41 | PN ---
Subjective Date of Service: 07/11/16 Interval History: Pt c/o RLQ abd pain x 2 days. Last BM this aM. Objective Active Medications: Acetaminophen (Tylenol Supp*) 650 mg CA Q6H PRN PRN Reason: FEVER/PAIN Hydralazine HCl (Apresoline Iv*) 10 mg IV Q4H PRN PRN Reason: Systolic >170 Hydromorphone HCl (Dilaudid Iv*) 0.5 mg IV Q3H PRN PRN Reason: PAIN Last Admin: 07/11/16 04:44 Dose: 0.5 mg Sodium Chloride (Ns 0.9% 1000 Ml*) 1,000 mls @ 125 mls/hr IV PER RATE [facility] Last Admin: 07/11/16 07:34 Dose: 125 mls/hr Metronidazole/Sodium Chloride (Flagyl 500 Mg Ivpb*) 500 mg in 100 mls @ 100 mls /hr IVPB Q8H [facility] Last Admin: 07/11/16 05:57 Dose: 100 mls/hr Ciprofloxacin 400 mg/ Dextrose 200 mls @ 200 mls/hr IVPB 0430,1630 [facility] Last Admin: 07/11/16 04:52 Dose: 200 mls/hr Insulin Glargine (Lantus(*)) 20 units SUBCUT 2100 ANNA Stop: 07/12/16 20:00 Insulin Human Lispro (Humalog*) 0 units SUBCUT Q4H ANNA PRN Reason: Protocol Last Admin: 07/11/16 12:12 Dose: Not Given Metoprolol Tartrate (Lopressor Iv*) 5 mg IV Q6H [facility] Last Admin: 07/11/16 09:56 Dose: 5 mg Ondansetron HCl (Zofran Inj*) 4 mg IV Q6H PRN PRN Reason: NAUSEA Last Admin: 07/11/16 12:03 Dose: 4 mg Pantoprazole Sodium (Protonix Iv*) 40 mg IV DAILY [facility] Last Admin: 07/11/16 09:07 Dose: 40 mg Prochlorperazine Edisylate (Compazine Inj*) 10 mg IV Q6H PRN PRN Reason: NAUSEA Last Admin: 07/11/16 09:03 Dose: 10 mg Vital Signs 07/11/16 07/11/16 07/11/16 03:27 03:31 03:38 Temperature 97.7 F Pulse Rate 89 Respiratory 14 Rate Blood Pressure 136/58 (mmHg) O2 Sat by Pulse 99 Oximetry 07/11/16 07/11/16 07/11/16 03:52 04:01 04:44 Temperature 97.9 F 97.9 F Pulse Rate 84 84 Respiratory 16 18 18 Rate Blood Pressure 130/55 130/55 (mmHg) O2 Sat by Pulse 100 100 Oximetry 07/11/16 07/11/16 07/11/16 05:44 07:20 07:55 Temperature 98.7 F 98.5 F Pulse Rate 85 85 Respiratory 16 16 20 Rate Blood Pressure 130/73 126/82 (mmHg) O2 Sat by Pulse 97 95 Oximetry Oxygen Devices in Use Now: None Appearance: 56 yo F in nAd, aAOx3 Eyes: No Scleral Icterus, PERRLA Ears/Nose/Mouth/Throat: NL Teeth, Lips, Gums, Mucous Membranes Moist Neck: NL Appearance and Movements; NL JVP, Trachea Midline Respiratory: Symmetrical Chest Expansion and Respiratory Effort, Clear to Auscultation Cardiovascular: NL Sounds; No Murmurs; No JVD, RRR Abdominal: - - diffuse distention and tenderness, most tender at RLQ, BS hypoactive, no rebound, no guarding Lymphatic: No Cervical Adenopathy Extremities: No Edema, No Clubbing, Cyanosis Skin: No Rash or Ulcers, No Nodules or Sclerosis Neurological: Alert and Oriented x 3, NL Muscle Strength and Tone Result Diagrams: 07/11/16 05:17 07/11/16 05:17 Additional Lab and Data: Lab Results 07/10/16 07/10/16 07/10/16 Range/Units 22:55 22:55 22:55 WBC 23.4 H (3.5-10.8) 10^3/ul RBC 5.46 H (4.0-5.4) 10^6/ul Hgb 13.3 (12.0-16.0) g/dl Hct 41 (35-47) % MCV 76 L (80-97) fL MCH 24 L (27-31) pg MCHC 32 (31-36) g/dl RDW 17 H (10.5-15) % Plt Count 452 H (150-450) 10^3/ul MPV 8 (7.4-10.4) um3 Neut % (Auto) 89.6 H (38-83) % Lymph % (Auto) 5.9 L (25-47) % [place]leigh % (Auto) 3.6 (1-9) % Eos % (Auto) 0.2 (0-6) % Baso % (Auto) 0.7 (0-2) % Absolute Neuts (auto) 21.0 H (1.5-7.7) 10^3/ul Absolute Lymphs (auto) 1.4 (1.0-4.8) 10^3/ul Absolute Monos (auto) 0.8 (0-0.8) 10^3/ul Absolute Eos (auto) 0.1 (0-0.6) 10^3/ul Absolute Basos (auto) 0.2 (0-0.2) 10^3/ul Absolute Nucleated RBC 0 10^3/ul Nucleated RBC % 0 Sodium 133 (133-145) mmol/L Potassium 3.4 L (3.5-5.0) mmol/L Chloride 102 (101-111) mmol/L Carbon Dioxide 20 L (22-32) mmol/L Anion Gap 11 (2-11) mmol/L BUN 6 (6-24) mg/dL Creatinine 0.55 (0.51-0.95) mg/dL Est GFR ( Amer) 147.0 (>60) Est GFR (Non-Af Amer) 114.3 (>60) BUN/Creatinine Ratio 10.9 (8-20) Glucose 164 H (70-100) mg/dL Lactic Acid 1.7 (0.5-2.0) mmol/L Calcium 9.5 (8.6-10.3) mg/dL Magnesium 1.8 L (1.9-2.7) mg/dL Total Bilirubin 1.40 H (0.2-1.0) mg/dL AST 11 L (13-39) U/L ALT 12 (7-52) U/L Alkaline Phosphatase 105 H (34-104) U/L C-Reactive Protein 47.42 H (< 5.00) mg/L Total Protein 8.1 (6.4-8.9) g/dL Albumin 3.9 (3.2-5.2) g/dL Globulin 4.2 H (2-4) g/dL Albumin/Globulin Ratio 0.9 L (1-3) Lipase 15 (11.0-82.0) U/L Assess/Plan/Problems-Billing Assessment: 56 yo F with h/o migraines, borderline cognitive functioning, HTN, DM presents with SBO - Patient Problems (1) SBO (small bowel obstruction) Comment: May be secondary to Meckel's diverticulum. D/w Dr. Flores . Plan for OR today. Cont IV antibiotics(Cipro, Flegyl) for SIRS due to SBO (2) DM type 2 (diabetes mellitus, type 2) Comment: cont ISS due to NPO status (3) HTN (hypertension) Comment: holding PO meds cont IV lopressor periop (4) DVT prophylaxis Comment: heparin held preop Status and Disposition: Inpatient
[2016-07-11] MEDS ORDERED: Neostigmine Methylsulfate* 2 MG/2 ML SYRINGE ONE (15:05)
[2016-07-11] MEDS ORDERED: Glycopyrrolate IV* 0.2 MG/ML 1 ML VIAL ONE (15:05)
--- NOTE | 2016-07-11 15:25 | SURGPN ---
Brief Operative Note - Surgery Procedures: Procedures OPERATIVE REPORT PRE-OP: 1.Abdominal pain, leukocytosis, small bowel obstruction POST-OP: 1. Same 2. Gangrenous Meckel's diverticulum causing small bowel obstruction PROCEDURE: Diagnostic laparoscopy, lysis of adhesions, small bowel resection with primary anastomosis SURGEON: MD Sandra ANESTHESIA: General with local with Dr. Herbert ASST: PRECIOUS Cervantes IVF: 2 Liters of crystalloid EBL: 100 cc SPECIMEN: portion of ileum DRAIN: none WOUND CLASS: 3 COMPLICATIONS: none TO PACU
[2016-07-11] MEDS ORDERED: DiMENhydriNATE IV* 50 MG/ML VIAL IV PUSH PRN (15:49)
[2016-07-11] MEDS ORDERED: fentaNYL* 50 MCG/ML 2 ML VIAL (100 MCG VIAL) IV PRN (15:49)
[2016-07-11] MEDS ORDERED: HYDROmorphone* 1 MG/ML 1 ML SYR IV PRN (15:49)
[2016-07-11] MEDS ORDERED: Ondansetron INJ* 2 MG/ML VIAL IV PRN (15:49)
[2016-07-11] MEDS ORDERED: HYDROmorphone PCA* 20 MG/20 ML PCA.SYRING PCA SCH (16:00)
[2016-07-11] MEDS ORDERED: Insulin GLARGINE(*) 1 UNITS UNIT SUBCUT SCH (21:00)
[2016-07-11] MEDS: Heparin VIAL(*) 5000 UNITS/ML VIAL (FIVE THOUSAND) SUBCUT SCH (22:35)
[2016-07-12] MEDS: Insulin LISPRO* 1 UNITS UNIT SUBCUT SCH ×6 (00:03→19:59)
[2016-07-12] MEDS: HYDROmorphone* 1 MG/ML 1 ML SYR IV SLOW PU PRN ×5 (02:28→20:53)
[2016-07-12] MEDS: NS 0.9% 1000 ML* 1,000 ML IV SCH ×3 (02:53→21:56)
[2016-07-12] MEDS: Metoprolol Tartrate IV* 1 MG/ML 5 ML VIAL IV SCH ×4 (03:40→20:56)
--- NOTE | 2016-07-12 04:04 | OP ---
DATE OF OPERATION: 07/11/16 - ROOM #350 DATE OF : 60 SURGEON: Parth Flores MD ETYMOLOGY TEACHER: PRECIOUS Wolfe ANESTHESIOLOGIST: Dr. Herbert. ANESTHESIA: General with local. PRE-OP DIAGNOSES: 1. Small bowel obstruction. 2. Acute surgical abdomen. 3. Leukocytosis. POST-OP DIAGNOSES: 1. Small bowel obstruction. 2. Gangrenous torsed Meckel's diverticulum causing near complete small bowel obstruction. OPERATIVE PROCEDURE: Diagnostic laparoscopy with conversion to open exploratory laparotomy, lysis of adhesions and small bowel resection with primary stapled anastomosis. ESTIMATED BLOOD LOSS: 100 cc. IV FLUIDS: 2 L of crystalloid. URINE OUTPUT: 300 cc. SPECIMENS: Portion of distal ileum. WOUND CLASSIFICATION: III. COMPLICATIONS: None. DRAINS: None. BRIEF HISTORY: Ms. Odessa Clifton is a 56-year-old woman who had undergone an open cholecystectomy in the past who presented to the emergency room with several days of worsening abdominal discomfort that was generalized. This was associated with nausea without vomiting and did not had diarrhea or change in bowel habits. She was noted to be afebrile. However, had generalized abdominal discomfort and a white blood cell count of 23,000. She underwent a CT scan of the abdomen and pelvis, which showed findings consistent with a small bowel obstruction with a transition zone in the right lower quadrant with distal collapsed bowel and what appeared to be Meckel's diverticulum without evidence of diverticulitis. There were no other acute findings. She was admitted to the medical service and surgical consultation was obtained. Chest x-ray was unremarkable. On exam, she was noted to have diffuse generalized tenderness with guarding and peritoneal signs. There were no obvious hernias and diminished bowel sounds throughout. She had a well-healed right upper quadrant transverse incision without hernia. After review of her history, clinical exam, and persistent leukocytosis overnight and findings on the CT scan consistent with at least a small bowel obstruction and the concern of the acute surgical abdomen, she is being taken to the operating room. She was recommended to be taken to the operating room today for probable exploratory laparotomy. The recommendation and the procedure was discussed with both the patient and her sister and the risks are but not limited to bleeding, infection, intraabdominal abscess formation, injury to peritoneal and retroperitoneal structures, possibility of an open procedure, possibility of bowel resection, possible ostomy well explained depending on the findings at exploration. In addition to the risks of general anesthesia, wound infection, prolonged hospital stay with organ failure were all discussed. After a long discussion, it was felt that the benefits outweigh the risks and the patient gives her consent to proceed. I also discussed her care with her sister Yuly Crook and explained all of the above to her. DESCRIPTION OF PROCEDURE: Written and informed consent was obtained. Preoperative antibiotics were administered and the abdomen was marked with indelible ink. The patient was taken to the operating room, placed in a supine position. Sequential compression devices and a warming blanket were applied. General anesthesia was administered and a Agarwal catheter was inserted. The abdomen was prepped and draped in the usual sterile fashion. Time-out verification was completed. Next, a small incision was made vertically just above the umbilicus and the midline fascia was divided and the peritoneal cavity was entered under direct vision. A 12- mm blunt port was inserted and the abdomen was insufflated to 15 mmHg. A camera was inserted. There was some serosanguineous ascitic fluid throughout all 4 quadrants of the abdomen with some distended small bowel proximally. In the right lower quadrant surrounded by some matted bowel with fibrinous exudate noted and what appeared to be a loop of gangrenous small intestine which I was not able to completely evaluate with a laparoscope. Thus, a decision at this point was made to proceed with an open exploratory laparotomy. Ports were then removed and a vertical incision was made centered above the umbilicus and extended more towards the pubis as the case progressed and the abdominal cavity was entered. It was obvious that there were some significant dense adhesions in the right upper quadrant from the previous cholecystectomy. They involved small bowel and I did tediously lyse the small bowel adhesions, so that we could adequately follow this distended bowel distally and explore the area in the right lower quadrant. There were several serosal tears made, but no transmural injury. The colon was not involved in the right upper quadrant adhesions and the omentum was quite foreshortened and really not present. Once these adhesions had been free, I was able to run the small bowel from the ligament of Treitz and it was distended down into an area of about 30 cms proximal to the ileocecal valve. There was an area of obstruction with distally collapsed bowel and at this point, I recognized a Meckel's diverticulum , it was approximately 6 inches in length, which was gangrenous and very edematous without evidence of perforation. The small bowel had adhered to this in several areas. At one point, had kinked the bowel causing the obstruction. I was able to free this obstruction up easily with digital dissection and exposed the gangrenous Meckel's diverticulum, which was actually quite impressive. I was able to then run the small bowel down to the terminal ileum, which was another foot and a half or so. The appendix appeared to be normal. The right colon and transverse colon were unremarkable. I was also able to visualize the uterus, ovaries, which were all normal as well. No other acute finding was noted. I did not adequately visualize the liver, however, due to the adhesive disease. At this point, I was fortunate to realize that the serosal tears that I had made in the small bowel excising the adhesions were within about 6 inches of the Meckel's diverticulum and I made a decision to proceed with a small bowel resection to include the serosal tears.Thus, an area of healthy bowel both proximal and distal to the Meckel's was then identified and a total of about 13 inches of small bowel was removed. This proximal and distal bowel were divided with the LISA 80 blue load stapler. The mesentry was divided with the LigaSure device. The specimen was handed off and sent in formalin to pathology. Both proximal and distal bowel limbs appeared to be viable and an anastomosis was fashioned using the LISA 80 blue load stapler in a [id number] fashion and the common run was closed with the TA 90 blue load. This staple line was oversewn with interrupted inverting 3-0 silk sutures. The anastomosis appeared to be widely patent and all bowel was viable, appeared to be under no tension. The small mesenteric run was then closed with running 2-0 Polysorb suture. The bowel was placed back in the abdominal cavity. The entire abdomen was irrigated with saline and hemostasis was assured. All sponge, needle, and instrument counts were reported as correct. The midline fascia was closed with interrupted #1 Polysorb suture. The skin was approximated with a stapling device. Dry sterile dressings were applied. The patient tolerated the procedure well and was taken to the recovery room in stable condition. CC: [facility]; Dr. Criss Lau* [id number]/[facility] #: [id number] REEDD
[2016-07-12] MEDS: Ciprofloxacin IV(*) 400 MG in D5W 250 ML BAG* 160 ML IVPB SCH ×2 (04:24→17:02)
[2016-07-12] MEDS ORDERED: Heparin VIAL(*) 5000 UNITS/ML VIAL (FIVE THOUSAND) SUBCUT SCH (06:00)
[2016-07-12] MEDS: metroNIDAZOLE IV 500 MG/100ML* 500 MG/100 ML BAG IVPB SCH ×3 (06:02→22:07)
[2016-07-12] MEDS: Heparin VIAL(*) 5000 UNITS/ML VIAL (FIVE THOUSAND) SUBCUT SCH ×3 (06:02→21:55)
--- NOTE | 2016-07-12 07:52 | PN ---
Progress Note - Progress Note SOAP: Subjective: Doing well-has been out of bed several times No SOB or CP Tolerating small amounts of liquids Pain is adequately controlled Objective: Temp Pulse Resp BP Pulse Ox 99.2 F 80 16 132/68 97 07/12/16 07:35 07/12/16 07:35 07/12/16 07:35 07/12/16 07:35 07/12/16 07:35 Intake & Output 07/10/16 07/11/16 07/12/16 07/13/16 06:59 06:59 06:59 06:59 Intake Total 50 5416 Output Total 200 1025 Balance -150 4391 Weight 178 lb 6.4 oz Intake: IV Fluids 50 4786 ABX - CIPROFLOXACIN 415 ABX - FLAGYL 109 LR 2300 NS (0.9%) 1962 IVPB 220 ABX - CIPROFLOXACIN 110 ABX - FLAGYL 110 Oral 0 410 Output: NG Tube Drainage Amount 200 Dunn 1025 Other: # Bowel Movements 0 0 # Voids 0 3 PEX: Comfortable Lungs are CTA Abd is soft and slightly distended. Dressing intact. No bowel sounds present. Extremities without edema Labs are pending Assessment: POD #1 s/p exlap with small bowel resection for torsed gangrenous Meckel's diverticulum causing small bowel obstruction DM Post-op ileus Plan: D/C dunn Sips of clear liquids IVF Increase activity Pulmonary toilet PPI and sub heparin Check labs today.
[2016-07-12] MEDS: Pantoprazole IV* 40 MG IV SCH (09:59)
[2016-07-12 10:11] LABS: Hematocrit 36 % (35-47); Hemoglobin 11.2 g/dl (12.0-16.0); Mean Corpuscular HGB Conc 31 g/dl (31-36); Mean Corpuscular Hemoglobin 24 pg (27-31); Mean Corpuscular Volume 77 fL (80-97); Mean Platelet Volume 8 um3 (7.4-10.4); Red Blood Count 4.62 10^6/ul (4.0-5.4); Red Cell Distribution Width 17 % (10.5-15); White Blood Count 17.3 10^3/ul (3.5-10.8)
[2016-07-12 10:30] LABS: Albumin 2.9 g/dL (3.2-5.2); BUN/Creatinine Ratio 7.3 (8-20); Calcium 8.2 mg/dL (8.6-10.3); EGFR Non-African American 114.3 (>60); Globulin 3.3 g/dL (2-4); Potassium 3.3 mmol/L (3.5-5.0); Total Bilirubin 1.5 mg/dL (0.2-1.0); Total Protein 6.2 g/dL (6.4-8.9)
[2016-07-12] MEDS: KCL 20 MEQ/100 ML IVPREMIX* 20 MEQ/100 ML BAG IV SCH ×2 (11:57→18:11)
--- NOTE | 2016-07-12 13:37 | PN ---
Subjective Date of Service: 07/12/16 Interval History: Pt feels that her abdomen is "sore". Does well with sips of water Objective Active Medications: Acetaminophen (Tylenol Supp*) 650 mg [place] Q6H PRN PRN Reason: FEVER/PAIN Heparin Sodium (Porcine) (Heparin Vial(*)) 5,000 units SUBCUT Q8HR [facility] [place] Last Admin: 07/12/16 06:02 Dose: 5,000 units Hydralazine HCl (Apresoline Iv*) 10 mg IV Q4H PRN PRN Reason: Systolic >170 Hydromorphone HCl (Dilaudid Iv*) 0.5 mg IV SLOW PU Q1H PRN PRN Reason: PAIN Last Admin: 07/12/16 13:05 Dose: 0.5 mg Sodium Chloride (Ns 0.9% 1000 Ml*) 1,000 mls @ 125 mls/hr IV PER RATE [facility] [place] Last Admin: 07/12/16 12:01 Dose: 125 mls/hr Metronidazole/Sodium Chloride (Flagyl 500 Mg Ivpb*) 500 mg in 100 mls @ 100 mls /hr IVPB Q8H [facility] [place] Last Admin: 07/12/16 06:02 Dose: 100 mls/hr Ciprofloxacin 400 mg/ Dextrose 200 mls @ 200 mls/hr IVPB 0430,1630 [facility] [place] Last Admin: 07/12/16 04:24 Dose: 200 mls/hr Hydromorphone HCl (Dilaudid Scale Attendant*) 20 mg in 20 mls @ 0 mls/hr JIG BUILDER HELPER .change Q24H [facility] [place]; Per Protocol PRN Reason: Protocol Potassium Chloride (Potassium Chloride 20 Meq/100 Ml Ivpremix*) 20 meq in 100 mls @ 50 mls/hr IV Q2H [facility] [place] Stop: 07/12/16 14:59 Last Admin: 07/12/16 11:57 Dose: 25 mls/hr Insulin Human Lispro (Humalog*) 0 units SUBCUT Q4H [facility] PRN Reason: Protocol Last Admin: 07/12/16 11:55 Dose: Not Given Metoprolol Tartrate (Lopressor Iv*) 5 mg IV Q6H [facility] [place] Last Admin: 07/12/16 09:59 Dose: 5 mg Ondansetron HCl (Zofran Inj*) 4 mg IV Q6H PRN PRN Reason: NAUSEA Last Admin: 07/11/16 12:03 Dose: 4 mg Pantoprazole Sodium (Protonix Iv*) 40 mg IV DAILY [facility] Last Admin: 07/12/16 09:59 Dose: 40 mg Prochlorperazine Edisylate (Compazine Inj*) 10 mg IV Q6H PRN PRN Reason: NAUSEA Last Admin: 07/11/16 09:03 Dose: 10 mg Vital Signs 07/11/16 07/11/16 07/11/16 15:26 15:30 15:35 Temperature 98.4 F Pulse Rate 98 105 106 Respiratory 16 18 18 Rate Blood Pressure 159/97 164/87 169/78 (mmHg) O2 Sat by Pulse 97 100 100 Oximetry 07/11/16 07/11/16 07/11/16 15:40 15:45 16:00 Temperature Pulse Rate 96 98 102 Respiratory 20 20 18 Rate Blood Pressure 155/81 158/87 160/85 (mmHg) O2 Sat by Pulse 98 98 99 Oximetry 07/11/16 07/11/16 07/11/16 16:15 17:00 17:43 Temperature 97.9 F 97.6 F 98.8 F Pulse Rate 96 94 89 Respiratory 18 16 18 Rate Blood Pressure 158/87 138/77 141/80 (mmHg) O2 Sat by Pulse 100 95 100 Oximetry 07/11/16 07/11/16 07/11/16 18:45 19:33 19:38 Temperature 97.3 F Pulse Rate 89 Respiratory 17 20 20 Rate Blood Pressure 137/65 (mmHg) O2 Sat by Pulse 100 97 Oximetry 07/11/16 07/11/16 07/11/16 20:00 20:45 21:00 Temperature 98.0 F Pulse Rate 94 Respiratory 20 20 16 Rate Blood Pressure 138/69 (mmHg) O2 Sat by Pulse 99 Oximetry 07/11/16 07/11/16 07/12/16 22:42 23:58 02:28 Temperature 98.5 F 98.6 F Pulse Rate 82 90 Respiratory 20 16 20 Rate Blood Pressure 138/70 133/55 (mmHg) O2 Sat by Pulse 100 99 Oximetry 07/12/16 07/12/16 07/12/16 03:27 03:28 07:35 Temperature 99.8 F 99.2 F Pulse Rate 102 80 Respiratory 18 18 16 Rate Blood Pressure 122/67 132/68 (mmHg) O2 Sat by Pulse 99 97 Oximetry 07/12/16 07/12/16 07/12/16 08:00 08:30 09:30 Temperature Pulse Rate Respiratory 16 18 18 Rate Blood Pressure (mmHg) O2 Sat by Pulse 97 Oximetry 07/12/16 07/12/16 11:28 13:05 Temperature 98.0 F Pulse Rate 75 Respiratory 16 18 Rate Blood Pressure 128/49 (mmHg) O2 Sat by Pulse 96 Oximetry Oxygen Devices in Use Now: None Appearance: 56 yo F in nAd, aAOx3 Eyes: No Scleral Icterus, PERRLA Ears/Nose/Mouth/Throat: NL Teeth, Lips, Gums, Mucous Membranes Moist Neck: NL Appearance and Movements; NL JVP, Trachea Midline Respiratory: Symmetrical Chest Expansion and Respiratory Effort, Clear to Auscultation Cardiovascular: NL Sounds; No Murmurs; No JVD, RRR Abdominal: - - mild diffuse tenderness, no reboound, no guarding, BS hypoactive Skin: - - two abd incisions covered with gauze Neurological: Alert and Oriented x 3, NL Muscle Strength and Tone Result Diagrams: 07/12/16 10:04 07/12/16 10:04 Additional Lab and Data: Lab Results 07/10/16 07/10/16 07/10/16 Range/Units 22:55 22:55 22:55 WBC 23.4 H (3.5-10.8) 10^3/ul RBC 5.46 H (4.0-5.4) 10^6/ul Hgb 13.3 (12.0-16.0) g/dl Hct 41 (35-47) % MCV 76 L (80-97) fL MCH 24 L (27-31) pg MCHC 32 (31-36) g/dl RDW 17 H (10.5-15) % Plt Count 452 H (150-450) 10^3/ul MPV 8 (7.4-10.4) um3 Neut % (Auto) 89.6 H (38-83) % Lymph % (Auto) 5.9 L (25-47) % [place] % (Auto) 3.6 (1-9) % Eos % (Auto) 0.2 (0-6) % Baso % (Auto) 0.7 (0-2) % Absolute Neuts (auto) 21.0 H (1.5-7.7) 10^3/ul Absolute Lymphs (auto) 1.4 (1.0-4.8) 10^3/ul Absolute Monos (auto) 0.8 (0-0.8) 10^3/ul Absolute Eos (auto) 0.1 (0-0.6) 10^3/ul Absolute Basos (auto) 0.2 (0-0.2) 10^3/ul Absolute Nucleated RBC 0 10^3/ul Nucleated RBC % 0 Sodium 133 (133-145) mmol/L Potassium 3.4 L (3.5-5.0) mmol/L Chloride 102 (101-111) mmol/L Carbon Dioxide 20 L (22-32) mmol/L Anion Gap 11 (2-11) mmol/L BUN 6 (6-24) mg/dL Creatinine 0.55 (0.51-0.95) mg/dL Est GFR ( Amer) 147.0 (>60) Est GFR (Non-Af Amer) 114.3 (>60) BUN/Creatinine Ratio 10.9 (8-20) Glucose 164 H (70-100) mg/dL Lactic Acid 1.7 (0.5-2.0) mmol/L Calcium 9.5 (8.6-10.3) mg/dL Magnesium 1.8 L (1.9-2.7) mg/dL Total Bilirubin 1.40 H (0.2-1.0) mg/dL AST 11 L (13-39) U/L ALT 12 (7-52) U/L Alkaline Phosphatase 105 H (34-104) U/L C-Reactive Protein 47.42 H (< 5.00) mg/L Total Protein 8.1 (6.4-8.9) g/dL Albumin 3.9 (3.2-5.2) g/dL Globulin 4.2 H (2-4) g/dL Albumin/Globulin Ratio 0.9 L (1-3) Lipase 15 (11.0-82.0) U/L Assess/Plan/Problems-Billing Assessment: 56 yo F with h/o migraines, borderline cognitive functioning, HTN, DM presents with SBO - Patient Problems (1) SBO (small bowel obstruction) Comment: Secondary to Meckel's diverticulum with gangrene. S/p Meckel's and partial bowel resection by Dr. Flores on 07/11/16 Post op ileus Cont IV antibiotics(Cipro, Flagyl) (2) DM type 2 (diabetes mellitus, type 2) Comment: cont ISS (3) HTN (hypertension) Comment: holding PO meds cont IV lopressor (4) DVT prophylaxis Comment: heparin sc Status and Disposition: Inpatient
[2016-07-13] MEDS: Insulin LISPRO* 1 UNITS UNIT SUBCUT SCH ×5 (00:52→16:10)
[2016-07-13] MEDS: HYDROmorphone* 1 MG/ML 1 ML SYR IV SLOW PU PRN ×7 (03:06→21:55)
[2016-07-13] MEDS: Metoprolol Tartrate IV* 1 MG/ML 5 ML VIAL IV SCH ×4 (03:09→20:43)
[2016-07-13] MEDS: Ciprofloxacin IV(*) 400 MG in D5W 250 ML BAG* 160 ML IVPB SCH ×2 (04:43→16:04)
[2016-07-13] MEDS: Heparin VIAL(*) 5000 UNITS/ML VIAL (FIVE THOUSAND) SUBCUT SCH ×3 (05:53→21:58)
[2016-07-13] MEDS: metroNIDAZOLE IV 500 MG/100ML* 500 MG/100 ML BAG IVPB SCH ×3 (05:54→21:56)
[2016-07-13] MEDS: NS 0.9% 1000 ML* 1,000 ML IV SCH ×2 (07:40→17:37)
[2016-07-13 08:45] LABS: Hematocrit 30 % (35-47); Hemoglobin 9.6 g/dl (12.0-16.0); Mean Corpuscular HGB Conc 32 g/dl (31-36); Mean Corpuscular Hemoglobin 25 pg (27-31); Mean Corpuscular Volume 77 fL (80-97); Mean Platelet Volume 8 um3 (7.4-10.4); Red Blood Count 3.91 10^6/ul (4.0-5.4); Red Cell Distribution Width 17 % (10.5-15); White Blood Count 11.9 10^3/ul (3.5-10.8)
[2016-07-13 09:00] LABS: BUN/Creatinine Ratio 4.8 (8-20); Calcium 8.2 mg/dL (8.6-10.3); EGFR African American 200.7 (>60); EGFR Non-African American 156.1 (>60); Potassium 3.1 mmol/L (3.5-5.0)
[2016-07-13] MEDS: Pantoprazole IV* 40 MG IV SCH (09:43)
--- NOTE | 2016-07-13 09:46 | PN ---
Progress Note - Progress Note SOAP: Subjective: Doing well with minimal abdominal pain. No flatus or BM. Tolerating some clear liquids without N/V Objective: Temp Pulse Resp BP Pulse Ox 98.3 F 79 16 119/56 95 07/13/16 08:11 07/13/16 08:11 07/13/16 08:11 07/13/16 08:11 07/13/16 08:11 Intake & Output 07/11/16 07/12/16 07/13/16 07/14/16 06:59 06:59 06:59 06:59 Intake Total 50 5416 3602 210 Output Total 200 1025 3600 200 Balance -150 4391 2 10 Weight 178 lb 6.4 oz Intake: IV Fluids 50 4786 1211 210 ABX - CIPROFLOXACIN 415 ABX - FLAGYL 109 56 LR 2300 NS (0.9%) 1962 1211 154 IVPB 220 386 ABX - CIPROFLOXACIN 110 ABX - FLAGYL 110 310 Potassium Chloride 76 Oral 0 410 2005 Output: NG Tube Drainage Amount 200 Urine 3300 200 Agarwal 1025 300 Other: Estimated Void Medium # Bowel Movements 0 0 # Voids 0 3 4 PEX: Comfortable and pleasant Lungs are CTA Abd is soft and non-distended. Bowel sounds not present. Wound is clean and dry with appropriate incisional tenderness. Ext without edema Laboratory Results - last 24 hr 07/12/16 07/12/16 07/12/16 10:04 10:04 10:04 WBC 17.3 H RBC 4.62 Hgb 11.2 L Hct 36 MCV 77 L MCH 24 L MCHC 31 RDW 17 H Plt Count 397 MPV 8 Neut % (Auto) 82.0 Lymph % (Auto) 9.4 L [place] % (Auto) 8.2 Eos % (Auto) 0.1 Baso % (Auto) 0.3 Absolute Neuts (auto) 14.2 H Absolute Lymphs (auto) 1.6 Absolute Monos (auto) 1.4 H Absolute Eos (auto) 0 Absolute Basos (auto) 0.1 Absolute Nucleated RBC 0.01 Nucleated RBC % 0 INR (Anticoag Therapy) 1.35 H Sodium 135 Potassium 3.3 L Chloride 105 Carbon Dioxide 24 Anion Gap 6 BUN 4 L Creatinine 0.55 Est GFR ( Amer) 147.0 Est GFR (Non-Af Amer) 114.3 BUN/Creatinine Ratio 7.3 L Glucose 108 H POC Glucose (mg/dL) Calcium 8.2 L Total Bilirubin 1.50 H AST 10 L ALT 10 Alkaline Phosphatase 71 Total Protein 6.2 L Albumin 2.9 L Globulin 3.3 Albumin/Globulin Ratio 0.9 L 07/12/16 07/12/16 07/12/16 11:31 16:41 19:58 WBC RBC Hgb Hct MCV MCH MCHC RDW Plt Count MPV Neut % (Auto) Lymph % (Auto) [place] % (Auto) Eos % (Auto) Baso % (Auto) Absolute Neuts (auto) Absolute Lymphs (auto) Absolute Monos (auto) Absolute Eos (auto) Absolute Basos (auto) Absolute Nucleated RBC Nucleated RBC % INR (Anticoag Therapy) Sodium Potassium Chloride Carbon Dioxide Anion Gap BUN Creatinine Est GFR ( Amer) Est GFR (Non-Af Amer) BUN/Creatinine Ratio Glucose POC Glucose (mg/dL) 121 H 124 H 125 H Calcium Total Bilirubin AST ALT Alkaline Phosphatase Total Protein Albumin Globulin Albumin/Globulin Ratio 07/13/16 07/13/16 07/13/16 00:10 04:11 07:37 WBC RBC Hgb Hct MCV MCH MCHC RDW Plt Count MPV Neut % (Auto) Lymph % (Auto) [place] % (Auto) Eos % (Auto) Baso % (Auto) Absolute Neuts (auto) Absolute Lymphs (auto) Absolute Monos (auto) Absolute Eos (auto) Absolute Basos (auto) Absolute Nucleated RBC Nucleated RBC % INR (Anticoag Therapy) Sodium Potassium Chloride Carbon Dioxide Anion Gap BUN Creatinine Est GFR ( Amer) Est GFR (Non-Af Amer) BUN/Creatinine Ratio Glucose POC Glucose (mg/dL) 127 H 125 H 122 H Calcium Total Bilirubin AST ALT Alkaline Phosphatase Total Protein Albumin Globulin Albumin/Globulin Ratio 07/13/16 07/13/16 08:30 08:30 WBC 11.9 H RBC 3.91 L Hgb 9.6 L Hct 30 L MCV 77 L MCH 25 L MCHC 32 RDW 17 H Plt Count 335 MPV 8 Neut % (Auto) 76.3 Lymph % (Auto) 12.5 L [place] % (Auto) 9.8 H Eos % (Auto) 0.9 Baso % (Auto) 0.5 Absolute Neuts (auto) 9.1 H Absolute Lymphs (auto) 1.5 Absolute Monos (auto) 1.2 H Absolute Eos (auto) 0.1 Absolute Basos (auto) 0.1 Absolute Nucleated RBC 0 Nucleated RBC % 0 INR (Anticoag Therapy) Sodium 136 Potassium 3.1 L Chloride 106 Carbon Dioxide 25 Anion Gap 5 BUN 2 L Creatinine 0.42 L Est GFR ( Amer) 200.7 Est GFR (Non-Af Amer) 156.1 BUN/Creatinine Ratio 4.8 L Glucose 103 H POC Glucose (mg/dL) Calcium 8.2 L Total Bilirubin AST ALT Alkaline Phosphatase Total Protein Albumin Globulin Albumin/Globulin Ratio Assessment: POD#2 s/p ex lap with small bowel resection for gangrenous Meckel's diverticulum with small bowel obstruction [id number] Hypokalemia WBC normalizing Plan: Replete K+ Decrease IVF-she appears to be mobilizing fluid Clear liquids as tolerated Plan to continue IV antibiotics until WBC is normal and the D/C-will not need oral antibiotics as long as recovers without complication. Recheck labs in AM PPI and subq heparin, pulmonary toilet.
[2016-07-13] MEDS: Potassium Chlor TAB* 20 MEQ TAB.ER PO SCH ×3 (10:19→20:44)
[2016-07-13] MEDS: KCL 10 MEQ/50 ML IVPREMIX* 10 MEQ/50 ML BAG IV SCH ×3 (10:19→14:47)
--- NOTE | 2016-07-13 14:51 | PN ---
Subjective Date of Service: 07/13/16 Interval History: Pt feels well. Still no BM or flatus Objective Active Medications: Acetaminophen (Tylenol Supp*) [address] Q6H PRN PRN Reason: FEVER/PAIN Heparin Sodium (Porcine) (Heparin Vial(*)) 5,000 units SUBCUT Q8HR [facility] Last Admin: 07/13/16 13:55 Dose: 5,000 units Hydralazine HCl (Apresoline Iv*) 10 mg IV Q4H PRN PRN Reason: Systolic >170 Hydromorphone HCl (Dilaudid Iv*) 0.5 mg IV SLOW PU Q1H PRN PRN Reason: PAIN Last Admin: 07/13/16 13:52 Dose: 0.5 mg Metronidazole/Sodium Chloride (Flagyl 500 Mg Ivpb*) 500 mg in 100 mls @ 100 mls /hr IVPB Q8H [facility] Last Admin: 07/13/16 13:53 Dose: 100 mls/hr Ciprofloxacin 400 mg/ Dextrose 200 mls @ 200 mls/hr IVPB 0430,1630 [facility] Last Admin: 07/13/16 04:43 Dose: 200 mls/hr Hydromorphone HCl (Dilaudid News Assistant*) 20 mg in 20 mls @ 0 mls/hr AIRPLANE COVER MAKER .change Q24H [facility]; Per Protocol PRN Reason: Protocol Sodium Chloride (Ns 0.9% 1000 Ml*) 1,000 mls @ 50 mls/hr IV .PER RATE [facility] Insulin Human Lispro (Humalog*) 0 units SUBCUT Q4H [facility] PRN Reason: Protocol Last Admin: 07/13/16 12:18 Dose: Not Given Metoprolol Tartrate (Lopressor Iv*) 5 mg IV Q6H [facility] Last Admin: 07/13/16 09:41 Dose: 5 mg Ondansetron HCl (Zofran Inj*) 4 mg IV Q6H PRN PRN Reason: NAUSEA Last Admin: 07/11/16 12:03 Dose: 4 mg Pantoprazole Sodium (Protonix Iv*) 40 mg IV DAILY [facility] Last Admin: 07/13/16 09:43 Dose: 40 mg Potassium Chloride (Klor Con Er Tab*) 20 meq PO TID [facility] Last Admin: 07/13/16 13:53 Dose: 20 meq Prochlorperazine Edisylate (Compazine Inj*) 10 mg IV Q6H PRN PRN Reason: NAUSEA Last Admin: 07/11/16 09:03 Dose: 10 mg Vital Signs 07/12/16 07/12/16 07/12/16 15:06 17:02 18:02 Temperature 98.7 F Pulse Rate 87 Respiratory 22 18 18 Rate Blood Pressure 139/57 (mmHg) O2 Sat by Pulse 95 Oximetry 07/12/16 07/12/16 07/12/16 19:30 20:00 20:50 Temperature 98.2 F Pulse Rate 85 87 Respiratory 18 17 17 Rate Blood Pressure 117/55 127/53 (mmHg) O2 Sat by Pulse 95 96 Oximetry 07/12/16 07/12/16 07/12/16 20:53 21:53 23:23 Temperature 97.9 F Pulse Rate 91 Respiratory 17 16 20 Rate Blood Pressure 144/60 (mmHg) O2 Sat by Pulse 95 Oximetry 07/13/16 07/13/16 07/13/16 03:06 03:09 04:06 Temperature 97.9 F Pulse Rate 96 Respiratory 17 17 16 Rate Blood Pressure 151/64 (mmHg) O2 Sat by Pulse 97 Oximetry 07/13/16 07/13/16 07/13/16 06:01 07:01 07:46 Temperature Pulse Rate Respiratory 17 16 16 Rate Blood Pressure (mmHg) O2 Sat by Pulse Oximetry 07/13/16 07/13/16 07/13/16 08:11 09:39 10:39 Temperature 98.3 F Pulse Rate 79 Respiratory 16 16 16 Rate Blood Pressure 119/56 (mmHg) O2 Sat by Pulse 95 Oximetry 07/13/16 07/13/16 12:17 13:52 Temperature 98.4 F Pulse Rate 78 Respiratory 20 16 Rate Blood Pressure 132/53 (mmHg) O2 Sat by Pulse 100 Oximetry Oxygen Devices in Use Now: None Appearance: 56 yo F in NAd, aAOx3 Eyes: No Scleral Icterus, PERRLA Ears/Nose/Mouth/Throat: NL Teeth, Lips, Gums, Mucous Membranes Moist Neck: NL Appearance and Movements; NL JVP, Trachea Midline Respiratory: Symmetrical Chest Expansion and Respiratory Effort, Clear to Auscultation Cardiovascular: NL Sounds; No Murmurs; No JVD, RRR Abdominal: - - mild diffuse tenderness, no rabound, no guarding, BS hypoactive Lymphatic: No Cervical Adenopathy Extremities: No Clubbing, Cyanosis, - - trace ankle edema b/l Skin: No Nodules or Sclerosis, - - post op incisions not uncovered today Neurological: Alert and Oriented x 3, NL Muscle Strength and Tone Result Diagrams: 07/13/16 08:30 07/13/16 08:30 Additional Lab and Data: Lab Results 07/10/16 07/10/16 07/10/16 Range/Units 22:55 22:55 22:55 WBC 23.4 H (3.5-10.8) 10^3/ul RBC 5.46 H (4.0-5.4) 10^6/ul Hgb 13.3 (12.0-16.0) g/dl Hct 41 (35-47) % MCV 76 L (80-97) fL MCH 24 L (27-31) pg MCHC 32 (31-36) g/dl RDW 17 H (10.5-15) % Plt Count 452 H (150-450) 10^3/ul MPV 8 (7.4-10.4) um3 Neut % (Auto) 89.6 H (38-83) % Lymph % (Auto) 5.9 L (25-47) % [place] % (Auto) 3.6 (1-9) % Eos % (Auto) 0.2 (0-6) % Baso % (Auto) 0.7 (0-2) % Absolute Neuts (auto) 21.0 H (1.5-7.7) 10^3/ul Absolute Lymphs (auto) 1.4 (1.0-4.8) 10^3/ul Absolute Monos (auto) 0.8 (0-0.8) 10^3/ul Absolute Eos (auto) 0.1 (0-0.6) 10^3/ul Absolute Basos (auto) 0.2 (0-0.2) 10^3/ul Absolute Nucleated RBC 0 10^3/ul Nucleated RBC % 0 Sodium 133 (133-145) mmol/L Potassium 3.4 L (3.5-5.0) mmol/L Chloride 102 (101-111) mmol/L Carbon Dioxide 20 L (22-32) mmol/L Anion Gap 11 (2-11) mmol/L BUN 6 (6-24) mg/dL Creatinine 0.55 (0.51-0.95) mg/dL Est GFR ( Amer) 147.0 (>60) Est GFR (Non-Af Amer) 114.3 (>60) BUN/Creatinine Ratio 10.9 (8-20) Glucose 164 H (70-100) mg/dL Lactic Acid 1.7 (0.5-2.0) mmol/L Calcium 9.5 (8.6-10.3) mg/dL Magnesium 1.8 L (1.9-2.7) mg/dL Total Bilirubin 1.40 H (0.2-1.0) mg/dL AST 11 L (13-39) U/L ALT 12 (7-52) U/L Alkaline Phosphatase 105 H (34-104) U/L C-Reactive Protein 47.42 H (< 5.00) mg/L Total Protein 8.1 (6.4-8.9) g/dL Albumin 3.9 (3.2-5.2) g/dL Globulin 4.2 H (2-4) g/dL Albumin/Globulin Ratio 0.9 L (1-3) Lipase 15 (11.0-82.0) U/L Assess/Plan/Problems-Billing Assessment: 56 yo F with h/o migraines, borderline cognitive functioning, HTN, DM presents with SBO - Patient Problems (1) SBO (small bowel obstruction) Comment: Secondary to Meckel's diverticulum with gangrene. S/p Meckel's and partial bowel resection by Dr. Flores on 07/11/16 Post op ileus Cont IV antibiotics(Cipro, Flagyl) (2) DM type 2 (diabetes mellitus, type 2) Comment: cont ISS (3) HTN (hypertension) Comment: holding PO meds cont IV lopressor , controlled (4) DVT prophylaxis Comment: heparin sc Status and Disposition: Inpatient
[2016-07-13] MEDS ORDERED: Insulin LISPRO* 1 UNITS UNIT SUBCUT SCH (21:00)
[2016-07-14] MEDS: HYDROmorphone* 1 MG/ML 1 ML SYR IV SLOW PU PRN ×4 (01:17→21:36)
[2016-07-14] MEDS: Metoprolol Tartrate IV* 1 MG/ML 5 ML VIAL IV SCH ×4 (03:35→21:28)
[2016-07-14] MEDS: Ciprofloxacin IV(*) 400 MG in D5W 250 ML BAG* 160 ML IVPB SCH (05:01)
[2016-07-14] MEDS: Heparin VIAL(*) 5000 UNITS/ML VIAL (FIVE THOUSAND) SUBCUT SCH ×3 (06:08→21:30)
[2016-07-14] MEDS: metroNIDAZOLE IV 500 MG/100ML* 500 MG/100 ML BAG IVPB SCH (06:08)
[2016-07-14 07:37] LABS: Add Diff/Slide Review? Slide Review Added; Comments Flag Yes; Hematocrit 32 % (35-47); Hemoglobin 10.1 g/dl (12.0-16.0); Mean Corpuscular HGB Conc 32 g/dl (31-36); Mean Corpuscular Hemoglobin 24 pg (27-31); Mean Corpuscular Volume 76 fL (80-97); Red Blood Count 4.14 10^6/ul (4.0-5.4); Red Cell Distribution Width 17 % (10.5-15); White Blood Count 10.4 10^3/ul (3.5-10.8)
[2016-07-14 07:49] LABS: BUN/Creatinine Ratio 5.3 (8-20); Calcium 8.7 mg/dL (8.6-10.3); EGFR African American 225.3 (>60); EGFR Non-African American 175.2 (>60); Potassium 3.6 mmol/L (3.5-5.0)
[2016-07-14] MEDS: Insulin LISPRO* 1 UNITS UNIT SUBCUT SCH ×3 (08:13→17:36)
[2016-07-14] MEDS: Pantoprazole IV* 40 MG IV SCH (09:17)
[2016-07-14] MEDS: Potassium Chlor TAB* 20 MEQ TAB.ER PO SCH ×3 (09:17→21:29)
--- NOTE | 2016-07-14 09:37 | PN ---
Progress Note - Progress Note SOAP: Subjective: Reports no flatus. Pain is controlled. No appetite. No N/V. Objective: Vital Signs Temp 98.5 F 07/14/16 07:32 Pulse 70 07/14/16 07:32 Resp 16 07/14/16 08:32 BP 142/58 07/14/16 07:32 Pulse Ox 99 07/14/16 07:32 Intake & Output 07/13/16 07/14/16 07/14/16 18:59 06:59 18:59 Intake Total 2314 1820 Output Total 750 2925 300 Balance 1564 -1105 -300 Intake: IV Fluids 1322 ABX - FLAGYL 56 NS (0.9%) 1266 IVPB 372 Potassium Chloride 372 Oral 620 1820 Output: Urine 750 2925 300 Other: Estimated Void Medium NAD, awake alert Abd: incis c/d/i, mild staple line erythema, soft, mildly tender. Laboratory Results - last 24 hr 07/13/16 07/13/16 07/13/16 12:15 16:09 20:15 WBC RBC Hgb Hct MCV MCH MCHC RDW Plt Count MPV Neut % (Auto) Lymph % (Auto) [place] % (Auto) Eos % (Auto) Baso % (Auto) Absolute Neuts (auto) Absolute Lymphs (auto) Absolute Monos (auto) Absolute Eos (auto) Absolute Basos (auto) Absolute Nucleated RBC Nucleated RBC % Sodium Potassium Chloride Carbon Dioxide Anion Gap BUN Creatinine Est GFR ( Amer) Est GFR (Non-Af Amer) BUN/Creatinine Ratio Glucose POC Glucose (mg/dL) 118 H 108 H 120 H Calcium 07/14/16 07/14/16 07:19 07:19 WBC 10.4 RBC 4.14 Hgb 10.1 L Hct 32 L MCV 76 L MCH 24 L MCHC 32 RDW 17 H Plt Count 324 MPV Not Reportable Neut % (Auto) 69.6 Lymph % (Auto) 15.1 L [place] % (Auto) 10.6 H Eos % (Auto) 3.5 Baso % (Auto) 1.2 Absolute Neuts (auto) 7.2 Absolute Lymphs (auto) 1.6 Absolute Monos (auto) 1.1 H Absolute Eos (auto) 0.4 Absolute Basos (auto) 0.1 Absolute Nucleated RBC 0.01 Nucleated RBC % 0.1 Sodium 136 Potassium 3.6 Chloride 105 Carbon Dioxide 24 Anion Gap 7 BUN 2 L Creatinine 0.38 L Est GFR ( Amer) 225.3 Est GFR (Non-Af Amer) 175.2 BUN/Creatinine Ratio 5.3 L Glucose 102 H POC Glucose (mg/dL) Calcium 8.7 Assessment: POD#3 s/p ExLap/Rsxn Meckel's. Doing well without sign of infection. Plan: Clears until GI function returns. WBC's normal and no fever--will d/c IV abx. Shower.
--- NOTE | 2016-07-14 12:18 | PN ---
Subjective Date of Service: 07/14/16 Interval History: Feels well, no BM, no flatus Objective Active Medications: Acetaminophen (Tylenol Supp*) 650 mg [place] Q6H PRN PRN Reason: FEVER/PAIN Heparin Sodium (Porcine) (Heparin Vial(*)) 5,000 units SUBCUT Q8HR [facility] Last Admin: 07/14/16 06:08 Dose: 5,000 units Hydralazine HCl (Apresoline Iv*) 10 mg IV Q4H PRN PRN Reason: Systolic >170 Hydromorphone HCl (Dilaudid Iv*) 0.5 mg IV SLOW PU Q1H PRN PRN Reason: PAIN Last Admin: 07/14/16 07:32 Dose: 0.5 mg Hydromorphone HCl (Dilaudid Car Electronics Installer*) 20 mg in 20 mls @ 0 mls/hr BUSINESS TAXES SPECIALIST .change Q24H [facility]; Per Protocol PRN Reason: Protocol Sodium Chloride (Ns 0.9% 1000 Ml*) 1,000 mls @ 50 mls/hr IV .PER RATE [facility] Last Admin: 07/13/16 17:37 Dose: 50 mls/hr Insulin Human Lispro (Humalog*) 0 units SUBCUT AC [facility] PRN Reason: Protocol Last Admin: 07/14/16 12:14 Dose: Not Given Metoprolol Tartrate (Lopressor Iv*) 5 mg IV Q6H [facility] Last Admin: 07/14/16 09:17 Dose: 5 mg Ondansetron HCl (Zofran Inj*) 4 mg IV Q6H PRN PRN Reason: NAUSEA Last Admin: 07/11/16 12:03 Dose: 4 mg Pantoprazole Sodium (Protonix Iv*) 40 mg IV DAILY [facility] Last Admin: 07/14/16 09:17 Dose: 40 mg Potassium Chloride (Klor Con Er Tab*) 20 meq PO TID [facility] Last Admin: 07/14/16 09:17 Dose: 20 meq Prochlorperazine Edisylate (Compazine Inj*) 10 mg IV Q6H PRN PRN Reason: NAUSEA Last Admin: 07/11/16 09:03 Dose: 10 mg Vital Signs 07/13/16 07/13/16 07/13/16 12:17 13:52 14:52 Temperature 98.4 F Pulse Rate 78 Respiratory 20 16 16 Rate Blood Pressure 132/53 (mmHg) O2 Sat by Pulse 100 Oximetry 07/13/16 07/13/16 07/13/16 15:44 16:19 17:19 Temperature 98.3 F Pulse Rate 95 Respiratory 18 16 20 Rate Blood Pressure 141/68 (mmHg) O2 Sat by Pulse 95 Oximetry 07/13/16 07/13/16 07/13/16 19:17 19:24 20:09 Temperature Pulse Rate Respiratory 16 15 16 Rate Blood Pressure (mmHg) O2 Sat by Pulse Oximetry 07/13/16 07/13/16 07/13/16 20:25 21:55 22:52 Temperature 98.7 F Pulse Rate 80 Respiratory 16 16 13 Rate Blood Pressure 128/54 (mmHg) O2 Sat by Pulse 95 Oximetry 07/13/16 07/14/16 07/14/16 23:51 01:17 02:17 Temperature 97.9 F Pulse Rate 85 Respiratory 16 16 15 Rate Blood Pressure 138/54 (mmHg) O2 Sat by Pulse 97 Oximetry 07/14/16 07/14/16 07/14/16 03:24 07:32 08:00 Temperature 98.1 F 98.5 F Pulse Rate 84 70 Respiratory 16 16 18 Rate Blood Pressure 149/61 142/58 (mmHg) O2 Sat by Pulse 97 99 Oximetry 07/14/16 08:32 Temperature Pulse Rate Respiratory 16 Rate Blood Pressure (mmHg) O2 Sat by Pulse Oximetry Oxygen Devices in Use Now: None Appearance: 56 yo F in NAD, AAOx3 Eyes: No Scleral Icterus, PERRLA Ears/Nose/Mouth/Throat: NL Teeth, Lips, Gums, Mucous Membranes Moist Neck: NL Appearance and Movements; NL JVP, Trachea Midline Respiratory: Symmetrical Chest Expansion and Respiratory Effort, Clear to Auscultation Cardiovascular: NL Sounds; No Murmurs; No JVD, RRR Abdominal: No Hepatosplenomegaly, - - tender in RUQ, no rabound, no guarding. Lymphatic: No Cervical Adenopathy Extremities: - - trace pedal edema b/l Skin: No Nodules or Sclerosis, - - midline abd incision stapled with no dehiscence Neurological: Alert and Oriented x 3 Result Diagrams: 07/14/16 07:19 07/14/16 07:19 Additional Lab and Data: Lab Results 07/10/16 07/10/16 07/10/16 Range/Units 22:55 22:55 22:55 WBC 23.4 H (3.5-10.8) 10^3/ul RBC 5.46 H (4.0-5.4) 10^6/ul Hgb 13.3 (12.0-16.0) g/dl Hct 41 (35-47) % MCV 76 L (80-97) fL MCH 24 L (27-31) pg MCHC 32 (31-36) g/dl RDW 17 H (10.5-15) % Plt Count 452 H (150-450) 10^3/ul MPV 8 (7.4-10.4) um3 Neut % (Auto) 89.6 H (38-83) % Lymph % (Auto) 5.9 L (25-47) % [place] % (Auto) 3.6 (1-9) % Eos % (Auto) 0.2 (0-6) % Baso % (Auto) 0.7 (0-2) % Absolute Neuts (auto) 21.0 H (1.5-7.7) 10^3/ul Absolute Lymphs (auto) 1.4 (1.0-4.8) 10^3/ul Absolute Monos (auto) 0.8 (0-0.8) 10^3/ul Absolute Eos (auto) 0.1 (0-0.6) 10^3/ul Absolute Basos (auto) 0.2 (0-0.2) 10^3/ul Absolute Nucleated RBC 0 10^3/ul Nucleated RBC % 0 Sodium 133 (133-145) mmol/L Potassium 3.4 L (3.5-5.0) mmol/L Chloride 102 (101-111) mmol/L Carbon Dioxide 20 L (22-32) mmol/L Anion Gap 11 (2-11) mmol/L BUN 6 (6-24) mg/dL Creatinine 0.55 (0.51-0.95) mg/dL Est GFR ( Amer) 147.0 (>60) Est GFR (Non-Af Amer) 114.3 (>60) BUN/Creatinine Ratio 10.9 (8-20) Glucose 164 H (70-100) mg/dL Lactic Acid 1.7 (0.5-2.0) mmol/L Calcium 9.5 (8.6-10.3) mg/dL Magnesium 1.8 L (1.9-2.7) mg/dL Total Bilirubin 1.40 H (0.2-1.0) mg/dL AST 11 L (13-39) U/L ALT 12 (7-52) U/L Alkaline Phosphatase 105 H (34-104) U/L C-Reactive Protein 47.42 H (< 5.00) mg/L Total Protein 8.1 (6.4-8.9) g/dL Albumin 3.9 (3.2-5.2) g/dL Globulin 4.2 H (2-4) g/dL Albumin/Globulin Ratio 0.9 L (1-3) Lipase 15 (11.0-82.0) U/L Assess/Plan/Problems-Billing Assessment: 56 yo F with h/o migraines, borderline cognitive functioning, HTN, DM presents with SBO - Patient Problems (1) SBO (small bowel obstruction) Comment: Secondary to Meckel's diverticulum with gangrene. S/p Meckel's and partial bowel resection by Dr. Flores on 07/11/16 Post op ileus IV antibiotics(Cipro, Flagyl) stopped on 07/14/16 (2) DM type 2 (diabetes mellitus, type 2) Comment: cont ISS (3) HTN (hypertension) Comment: holding PO meds cont IV lopressor , controlled (4) DVT prophylaxis Comment: heparin sc Status and Disposition: Inpatient
[2016-07-14] MEDS: NS 0.9% 1000 ML* 1,000 ML IV SCH (15:49)
[2016-07-15] MEDS: Metoprolol Tartrate IV* 1 MG/ML 5 ML VIAL IV SCH ×3 (03:50→15:48)
[2016-07-15] MEDS: Heparin VIAL(*) 5000 UNITS/ML VIAL (FIVE THOUSAND) SUBCUT SCH ×3 (05:42→21:09)
[2016-07-15] MEDS: Insulin LISPRO* 1 UNITS UNIT SUBCUT SCH ×3 (07:17→17:11)
[2016-07-15] MEDS: Potassium Chlor TAB* 20 MEQ TAB.ER PO SCH ×3 (08:48→21:08)
[2016-07-15] MEDS: Pantoprazole IV* 40 MG IV SCH (08:52)
--- NOTE | 2016-07-15 09:17 | PN ---
Progress Note - Progress Note SOAP: Subjective: Pt seen and examined. Walking the floor w/o difficulty. no flatus or BM; some burping, no hiccups pain well managed Objective: af vss lungs clear abdo: soft/nd/mild incisional tenderness midline incision intact w/o erythema no calf tenderness path: reviewed Assessment: POD4 SB resection Plan: Pain control OOB DVT proph likely advance diet tomorrow
[2016-07-15] MEDS: NS 0.9% 1000 ML* 1,000 ML IV SCH (13:20)
[2016-07-15] MEDS: oxyCODONE/Acetamin 5/325 MG* TAB PO PRN ×2 (13:24→21:08)
--- NOTE | 2016-07-15 13:57 | PN ---
Subjective Date of Service: 07/15/16 Interval History: pt feels well. Still no flatus, no BM. Denies abd pain Objective Active Medications: Acetaminophen (Tylenol Supp*) 650 mg TN Q6H PRN PRN Reason: FEVER/PAIN Heparin Sodium (Porcine) (Heparin Vial(*)) 5,000 units SUBCUT Q8HR [facility] Last Admin: 07/15/16 13:27 Dose: 5,000 units Hydralazine HCl (Apresoline Iv*) 10 mg IV Q4H PRN PRN Reason: Systolic >170 Hydromorphone HCl (Dilaudid Iv*) 0.5 mg IV SLOW PU Q1H PRN PRN Reason: PAIN Last Admin: 07/14/16 21:36 Dose: 0.5 mg Sodium Chloride (Ns 0.9% 1000 Ml*) 1,000 mls @ 50 mls/hr IV .PER RATE [facility] Last Admin: 07/15/16 13:20 Dose: 50 mls/hr Insulin Human Lispro (Humalog*) 0 units SUBCUT AC [facility] PRN Reason: Protocol Last Admin: 07/15/16 12:00 Dose: Not Given Metoprolol Tartrate (Lopressor Iv*) 5 mg IV Q6H [facility] Last Admin: 07/15/16 08:49 Dose: 5 mg Ondansetron HCl (Zofran Inj*) 4 mg IV Q6H PRN PRN Reason: NAUSEA Last Admin: 07/11/16 12:03 Dose: 4 mg Oxycodone/Acetaminophen (Percocet 5/325 Tab*) 1 tab PO Q4H PRN PRN Reason: PAIN Last Admin: 07/15/16 13:24 Dose: 1 tab Pantoprazole Sodium (Protonix Iv*) 40 mg IV DAILY [facility] Last Admin: 07/15/16 08:52 Dose: 40 mg Potassium Chloride (Klor Con Er Tab*) 20 meq PO TID [facility] Last Admin: 07/15/16 13:24 Dose: 20 meq Prochlorperazine Edisylate (Compazine Inj*) 10 mg IV Q6H PRN PRN Reason: NAUSEA Last Admin: 07/11/16 09:03 Dose: 10 mg Vital Signs 07/14/16 07/14/16 07/14/16 14:04 15:42 19:35 Temperature 98.6 F 97.9 F Pulse Rate 82 74 Respiratory 16 18 20 Rate Blood Pressure 118/54 135/55 (mmHg) O2 Sat by Pulse 100 100 Oximetry 07/14/16 07/14/16 07/14/16 19:55 21:36 22:36 Temperature Pulse Rate Respiratory 18 20 16 Rate Blood Pressure (mmHg) O2 Sat by Pulse Oximetry 07/14/16 07/15/16 07/15/16 23:36 03:43 07:40 Temperature 98.2 F 98.1 F 97.9 F Pulse Rate 76 83 73 Respiratory 18 16 16 Rate Blood Pressure 141/68 137/117 134/51 (mmHg) O2 Sat by Pulse 98 98 100 Oximetry 07/15/16 07/15/16 07/15/16 08:00 11:50 13:24 Temperature 97.9 F Pulse Rate 74 Respiratory 20 16 20 Rate Blood Pressure 141/62 (mmHg) O2 Sat by Pulse 100 Oximetry Oxygen Devices in Use Now: None Appearance: 56 yo F in nAd, aAOx3 Eyes: No Scleral Icterus, PERRLA Ears/Nose/Mouth/Throat: NL Teeth, Lips, Gums, Mucous Membranes Moist Neck: NL Appearance and Movements; NL JVP, Trachea Midline Respiratory: Symmetrical Chest Expansion and Respiratory Effort, Clear to Auscultation Cardiovascular: NL Sounds; No Murmurs; No JVD, RRR Abdominal: NL Sounds; No Tenderness; No Distention Lymphatic: No Cervical Adenopathy Extremities: No Clubbing, Cyanosis, - - trace pedal edema b/l Skin: No Nodules or Sclerosis, - - midline abd incision stapled, no dehiscence Neurological: Alert and Oriented x 3, NL Muscle Strength and Tone Result Diagrams: 07/14/16 07:19 07/14/16 07:19 Additional Lab and Data: Lab Results 07/10/16 07/10/16 07/10/16 Range/Units 22:55 22:55 22:55 WBC 23.4 H (3.5-10.8) 10^3/ul RBC 5.46 H (4.0-5.4) 10^6/ul Hgb 13.3 (12.0-16.0) g/dl Hct 41 (35-47) % MCV 76 L (80-97) fL MCH 24 L (27-31) pg MCHC 32 (31-36) g/dl RDW 17 H (10.5-15) % Plt Count 452 H (150-450) 10^3/ul MPV 8 (7.4-10.4) um3 Neut % (Auto) 89.6 H (38-83) % Lymph % (Auto) 5.9 L (25-47) % Jenkins % (Auto) 3.6 (1-9) % Eos % (Auto) 0.2 (0-6) % Baso % (Auto) 0.7 (0-2) % Absolute Neuts (auto) 21.0 H (1.5-7.7) 10^3/ul Absolute Lymphs (auto) 1.4 (1.0-4.8) 10^3/ul Absolute Monos (auto) 0.8 (0-0.8) 10^3/ul Absolute Eos (auto) 0.1 (0-0.6) 10^3/ul Absolute Basos (auto) 0.2 (0-0.2) 10^3/ul Absolute Nucleated RBC 0 10^3/ul Nucleated RBC % 0 Sodium 133 (133-145) mmol/L Potassium 3.4 L (3.5-5.0) mmol/L Chloride 102 (101-111) mmol/L Carbon Dioxide 20 L (22-32) mmol/L Anion Gap 11 (2-11) mmol/L BUN 6 (6-24) mg/dL Creatinine 0.55 (0.51-0.95) mg/dL Est GFR ( Amer) 147.0 (>60) Est GFR (Non-Af Amer) 114.3 (>60) BUN/Creatinine Ratio 10.9 (8-20) Glucose 164 H (70-100) mg/dL Lactic Acid 1.7 (0.5-2.0) mmol/L Calcium 9.5 (8.6-10.3) mg/dL Magnesium 1.8 L (1.9-2.7) mg/dL Total Bilirubin 1.40 H (0.2-1.0) mg/dL AST 11 L (13-39) U/L ALT 12 (7-52) U/L Alkaline Phosphatase 105 H (34-104) U/L C-Reactive Protein 47.42 H (< 5.00) mg/L Total Protein 8.1 (6.4-8.9) g/dL Albumin 3.9 (3.2-5.2) g/dL Globulin 4.2 H (2-4) g/dL Albumin/Globulin Ratio 0.9 L (1-3) Lipase 15 (11.0-82.0) U/L Assess/Plan/Problems-Billing Assessment: 56 yo F with h/o migraines, borderline cognitive functioning, HTN, DM presents with SBO - Patient Problems (1) SBO (small bowel obstruction) Comment: Secondary to Meckel's diverticulum with gangrene. S/p Meckel's and partial bowel resection by Dr. Flores on 07/11/16 Post op ileus still present IV antibiotics(Cipro, Flagyl) stopped on 07/14/16 (2) DM type 2 (diabetes mellitus, type 2) Comment: cont ISS (3) HTN (hypertension) Comment: holding PO meds cont IV lopressor , controlled (4) DVT prophylaxis Comment: heparin sc Status and Disposition: Inpatient
[2016-07-15] MEDS: Metoprolol Tartrate TAB* 25 MG PO SCH (21:08)
[2016-07-16] MEDS: Heparin VIAL(*) 5000 UNITS/ML VIAL (FIVE THOUSAND) SUBCUT SCH ×3 (05:41→22:00)
[2016-07-16] MEDS: Metoprolol Tartrate TAB* 25 MG PO SCH ×3 (05:41→15:58)
--- NOTE | 2016-07-16 08:11 | PN ---
Progress Note - Progress Note SOAP: Subjective: Passing flatus and has had several small bowel movements Wants to eat more Minimal incisional pain Objective: Temp Pulse Resp BP Pulse Ox 97.9 F 65 14 144/63 98 07/16/16 04:11 07/16/16 04:11 07/16/16 07:14 07/16/16 04:11 07/16/16 04:11 Intake & Output 07/14/16 07/15/16 07/16/16 07/17/16 06:59 06:59 06:59 06:59 Intake Total 4134 2669 2448 Output Total 3675 4100 3300 200 Balance 459 -1431 -852 -200 Intake: IV Fluids 0412 039 3908 ABX - FLAGYL 56 NS (0.9%) 8632 452 0454 IVPB 372 410 NS (0.9%) 410 Potassium Chloride 372 Oral 2440 1400 1385 Output: Urine 3675 4100 3300 200 Other: Estimated Void Medium # Bowel Movements 1 Estimated Stool Amount Medium Small PEX: Comfortable Lungs CTA Abd is soft and non-distended. Bowel sounds are present throughout. Incision is clean and dry Assessment: POD # 5 s/p ex lap with small bowel resection for gangrenous Meckel's diverticulum and SBO Ileus resolving Plan: Advance diet to regular OK for d/c tomorrow from surgical standpoint Resume pre-hosp meds Case management--assistance on D/C.
[2016-07-16] MEDS: Pantoprazole IV* 40 MG IV SCH (08:36)
[2016-07-16] MEDS: Insulin LISPRO* 1 UNITS UNIT SUBCUT SCH ×3 (08:36→17:35)
[2016-07-16] MEDS: Potassium Chlor TAB* 20 MEQ TAB.ER PO SCH ×3 (09:20→20:38)
--- NOTE | 2016-07-16 13:26 | PN ---
Subjective Date of Service: 07/16/16 Interval History: Pt had BM's yesterday. diet restarted as per surgery. no pain reported. Objective Active Medications: Acetaminophen (Tylenol Supp*) 650 mg [place] Q6H PRN PRN Reason: FEVER/PAIN Citalopram Hydrobromide (Celexa Tab*) 30 mg PO DAILY [facility] Gabapentin (Neurontin Cap(*)) 100 mg PO TID [facility] Heparin Sodium (Porcine) (Heparin Vial(*)) 5,000 units SUBCUT Q8HR [facility] Last Admin: 07/16/16 05:41 Dose: 5,000 units Hydralazine HCl (Apresoline Iv*) 10 mg IV Q4H PRN PRN Reason: Systolic >170 Hydromorphone HCl (Dilaudid Iv*) 0.5 mg IV SLOW PU Q1H PRN PRN Reason: PAIN Last Admin: 07/14/16 21:36 Dose: 0.5 mg Insulin Human Lispro (Humalog*) 0 units SUBCUT AC [facility] PRN Reason: Protocol Last Admin: 07/16/16 12:08 Dose: Not Given Metoprolol Tartrate (Lopressor Tab*) 25 mg PO Q8H [facility] Last Admin: 07/16/16 05:41 Dose: 25 mg Ondansetron HCl (Zofran Inj*) 4 mg IV Q6H PRN PRN Reason: NAUSEA Last Admin: 07/11/16 12:03 Dose: 4 mg Oxycodone/Acetaminophen (Percocet 5/325 Tab*) 1 tab PO Q4H PRN PRN Reason: PAIN Last Admin: 07/15/16 21:08 Dose: 1 tab Pantoprazole Sodium (Protonix Iv*) 40 mg IV DAILY [facility] Last Admin: 07/16/16 08:36 Dose: Not Given Potassium Chloride (Klor Con Er Tab*) 20 meq PO TID [facility] Last Admin: 07/16/16 09:20 Dose: 20 meq Prochlorperazine Edisylate (Compazine Inj*) 10 mg IV Q6H PRN PRN Reason: NAUSEA Last Admin: 07/11/16 09:03 Dose: 10 mg Vital Signs 07/15/16 07/15/16 07/15/16 13:24 15:24 15:32 Temperature 98.3 F Pulse Rate 60 Respiratory 20 18 16 Rate Blood Pressure 148/64 (mmHg) O2 Sat by Pulse 99 Oximetry 07/15/16 07/15/16 07/15/16 15:45 19:15 19:29 Temperature 98.4 F Pulse Rate 80 74 Respiratory 16 18 Rate Blood Pressure 134/62 (mmHg) O2 Sat by Pulse 100 Oximetry 07/15/16 07/15/16 07/15/16 21:08 23:08 23:22 Temperature 98.2 F Pulse Rate 77 Respiratory 18 18 16 Rate Blood Pressure 142/67 (mmHg) O2 Sat by Pulse 98 Oximetry 07/16/16 07/16/16 07/16/16 04:11 07:14 07:33 Temperature 97.9 F 98.0 F Pulse Rate 65 66 Respiratory 16 14 18 Rate Blood Pressure 144/63 114/45 (mmHg) O2 Sat by Pulse 98 99 Oximetry 07/16/16 12:09 Temperature 98.2 F Pulse Rate 70 Respiratory 18 Rate Blood Pressure 116/49 (mmHg) O2 Sat by Pulse 100 Oximetry Oxygen Devices in Use Now: None Appearance: 56 yo F in nAd, aAox3 Eyes: No Scleral Icterus, PERRLA Ears/Nose/Mouth/Throat: NL Teeth, Lips, Gums, Mucous Membranes Moist Neck: NL Appearance and Movements; NL JVP, Trachea Midline Respiratory: Symmetrical Chest Expansion and Respiratory Effort, Clear to Auscultation Cardiovascular: NL Sounds; No Murmurs; No JVD, RRR Abdominal: - - soft, minimally tender along the midline incision, no rebound, no guarding Lymphatic: No Cervical Adenopathy Extremities: No Clubbing, Cyanosis, - - trace pedal edema b/l Skin: No Nodules or Sclerosis, - - midline incision stapled, no dehiscence, no infection noted Neurological: Alert and Oriented x 3, NL Muscle Strength and Tone Result Diagrams: 07/14/16 07:19 07/14/16 07:19 Additional Lab and Data: Lab Results 07/10/16 07/10/16 07/10/16 Range/Units 22:55 22:55 22:55 WBC 23.4 H (3.5-10.8) 10^3/ul RBC 5.46 H (4.0-5.4) 10^6/ul Hgb 13.3 (12.0-16.0) g/dl Hct 41 (35-47) % MCV 76 L (80-97) fL MCH 24 L (27-31) pg MCHC 32 (31-36) g/dl RDW 17 H (10.5-15) % Plt Count 452 H (150-450) 10^3/ul MPV 8 (7.4-10.4) um3 Neut % (Auto) 89.6 H (38-83) % Lymph % (Auto) 5.9 L (25-47) % Band[place] % (Auto) 3.6 (1-9) % Eos % (Auto) 0.2 (0-6) % Baso % (Auto) 0.7 (0-2) % Absolute Neuts (auto) 21.0 H (1.5-7.7) 10^3/ul Absolute Lymphs (auto) 1.4 (1.0-4.8) 10^3/ul Absolute Monos (auto) 0.8 (0-0.8) 10^3/ul Absolute Eos (auto) 0.1 (0-0.6) 10^3/ul Absolute Basos (auto) 0.2 (0-0.2) 10^3/ul Absolute Nucleated RBC 0 10^3/ul Nucleated RBC % 0 Sodium 133 (133-145) mmol/L Potassium 3.4 L (3.5-5.0) mmol/L Chloride 102 (101-111) mmol/L Carbon Dioxide 20 L (22-32) mmol/L Anion Gap 11 (2-11) mmol/L BUN 6 (6-24) mg/dL Creatinine 0.55 (0.51-0.95) mg/dL Est GFR ( Amer) 147.0 (>60) Est GFR (Non-Af Amer) 114.3 (>60) BUN/Creatinine Ratio 10.9 (8-20) Glucose 164 H (70-100) mg/dL Lactic Acid 1.7 (0.5-2.0) mmol/L Calcium 9.5 (8.6-10.3) mg/dL Magnesium 1.8 L (1.9-2.7) mg/dL Total Bilirubin 1.40 H (0.2-1.0) mg/dL AST 11 L (13-39) U/L ALT 12 (7-52) U/L Alkaline Phosphatase 105 H (34-104) U/L C-Reactive Protein 47.42 H (< 5.00) mg/L Total Protein 8.1 (6.4-8.9) g/dL Albumin 3.9 (3.2-5.2) g/dL Globulin 4.2 H (2-4) g/dL Albumin/Globulin Ratio 0.9 L (1-3) Lipase 15 (11.0-82.0) U/L Assess/Plan/Problems-Billing Assessment: 56 yo F with h/o migraines, borderline cognitive functioning, HTN, DM presents with SBO - Patient Problems (1) SBO (small bowel obstruction) Comment: Secondary to Meckel's diverticulum with gangrene. S/p Meckel's and partial bowel resection by Dr. Flores on 07/11/16 Post op ileus resolved. diet advanced. Most likely will be ready for discharge tomorrow. IV antibiotics(Cipro, Flagyl) stopped on 07/14/16 (2) DM type 2 (diabetes mellitus, type 2) Comment: cont ISS (3) HTN (hypertension) Comment: Lopressor PO when hospitalized, can go back to propranolol as outpatient controlled (4) DVT prophylaxis Comment: heparin sc Status and Disposition: Inpatient
[2016-07-16] MEDS: Gabapentin CAP(*) 100 MG PO SCH ×2 (13:34→20:38)
[2016-07-17] MEDS: Metoprolol Tartrate TAB* 25 MG PO SCH (02:06)
[2016-07-17] MEDS ORDERED: Temazepam CAP* 15 MG PO PRN (02:21)
[2016-07-17] MEDS: Heparin VIAL(*) 5000 UNITS/ML VIAL (FIVE THOUSAND) SUBCUT SCH (05:20)
[2016-07-17 05:27] LABS: Hematocrit 35 % (35-47); Hemoglobin 11.3 g/dl (12.0-16.0); Mean Corpuscular HGB Conc 32 g/dl (31-36); Mean Corpuscular Hemoglobin 24 pg (27-31); Mean Corpuscular Volume 76 fL (80-97); Mean Platelet Volume 8 um3 (7.4-10.4); Red Blood Count 4.63 10^6/ul (4.0-5.4); Red Cell Distribution Width 18 % (10.5-15); White Blood Count 11.1 10^3/ul (3.5-10.8)
[2016-07-17 05:28] LABS: Add Diff/Slide Review? Slide Review Added; Comments Flag Yes
[2016-07-17 06:03] LABS: BUN/Creatinine Ratio 7.5 (8-20); Calcium 9.1 mg/dL (8.6-10.3); EGFR African American 153.5 (>60); EGFR Non-African American 119.3 (>60); Potassium 4.3 mmol/L (3.5-5.0)
[2016-07-17 06:11] LABS: Eosinophils % 4 % (0-6); Hypochromasia 1+; Immature Granulocytes 1 % (0-9); Metamyelocytes % 1 % (0-2); Neutrophil % 59 % (38-83); Polychromasia 1+; Reactive Lymph % 1 % (0-6)
--- NOTE | 2016-07-17 07:34 | PN ---
Progress Note - Progress Note SOAP: Subjective: [ Doing well and tolerating po Had small bowel movement and is passing flatus Minimal incisional pain Objective: Temp Pulse Resp BP Pulse Ox 98.2 F 76 16 114/49 98 07/17/16 01:44 07/17/16 01:44 07/17/16 01:44 07/17/16 01:44 07/17/16 01:44 Intake & Output 07/15/16 07/16/16 07/17/16 07/18/16 06:59 06:59 06:59 06:59 Intake Total 2669 2448 1250 Output Total 4100 3300 2450 Balance -1431 -852 -1200 Intake: IV Fluids 859 1063 NS (0.9%) 859 1063 IVPB 410 NS (0.9%) 410 Oral 1400 1385 1250 Output: Urine 4100 3300 2450 Other: Estimated Void Medium Date of Last Bowel 07/17/16 Movement # Bowel Movements 1 2 Estimated Stool Amount Medium Small PEX: Comfortable Abd is soft and non-distended. Bowel sounds are preset and normoactive. Incision is clean and dry Labs are noted Assessment: POD# 6 s/p ex lap with small bowel resection Doing well and tolerating regular diet Plan: OK for D/C today Surgery office follow up this Saturday for staple removal.
--- NOTE | 2016-07-17 07:54 | DCNOTE ---
Patient seen this morning. Says she is feeling well. Tolerated dinner last night with no issues, awaiting breakfast. Denies abdominal pain. Has been ambulating, moving bowels. On exam, RRR, s1 and s2 present, no m/g/r, abd soft, NTND, midline incision healing well, shannan present, no LE edema Will discharge home today on home medication regimen. Will need PCP follow-up. Will f/u with surgery this week.
[2016-07-17 08:07] VITALS: BP 130/62
[2016-07-17] MEDS: Insulin LISPRO* 1 UNITS UNIT SUBCUT SCH (08:19)
[2016-07-17] MEDS: Gabapentin CAP(*) 100 MG PO SCH (08:28)
[2016-07-17] MEDS ORDERED: Omeprazole CAP* 20 MG PO ONE (08:35)
[2016-07-17] MEDS: Potassium Chlor TAB* 20 MEQ TAB.ER PO SCH (08:38)
[2016-07-17] MEDS ORDERED: Citalopram TAB* 10 MG PO SCH (09:00)
[2016-07-17] MEDS: oxyCODONE/Acetamin 5/325 MG* TAB PO PRN (09:34)
--- NOTE | 2016-07-18 02:34 | DS ---
DISCHARGE SUMMARY: DATE OF ADMISSION: 07/11/16 DATE OF DISCHARGE: 07/17/16 PRIMARY CARE PHYSICIAN: Dr. Lau. PRINCIPAL DISCHARGE DIAGNOSES: 1. Small bowel obstruction. 2. Gangrenous torsed Meckel's diverticulum causing near complete small bowel obstruction. SECONDARY DIAGNOSES: 1. Diabetes. 2. Hypertension. 3. Hyperlipidemia. 4. Migraines. 5. Gastroesophageal reflux disease. 6. Depression. STUDIES DONE DURING HOSPITALIZATION: 1. CT of abdomen and pelvis with contrast, impression: Moderate grade distal small bowel obstruction. There is an adjacent structure with a blind ending loop suggesting the possibility of a Meckel's diverticulum. 2. Chest x-ray, impression: No active disease. 3. Abdominal x-ray, impression: Small bowel obstruction. Suggest followup. CONSULTS DURING HOSPITALIZATION: 1. John Kim MD., Surgery. 2. Parth Flores MD, Surgery. DISCHARGE MEDICATION REGIMEN: 1. Tylenol 650 mg by mouth every 6 hours as needed for pain. 2. Citalopram 30 mg by mouth daily. 3. Metformin 500 mg by mouth daily. 4. Nexium 40 mg by mouth daily. 5. Propranolol 80 mg by mouth daily. 6. Aspirin 81 mg by mouth daily. 7. Lipitor 20 mg by mouth daily. 8. Amlodipine 2.5 mg by mouth daily. 9. Gabapentin 100 mg by mouth 3 times daily. 10. Zolmitriptan 5 mg by mouth 3 times daily as needed for headaches. HISTORY OF PRESENT ILLNESS AND HOSPITAL SUMMARY: Please see the full history and physical by Dr. Barry Decker, for full details. Briefly, Ms. Clifton is a 56- year-old female with a past medical history of borderline cognitive functioning and the above medical history who presented to the hospital with 2 to 3 days of progressive abdominal pain. Imaging revealed evidence of small bowel obstruction. The patient was initially treated conservatively. She was evaluated by Dr. Kim on the day of admission; however, later that day, she was taken to the operating room for diagnostic laparoscopy. This conversioned to open ex-lap, lysis of adhesions and small bowel resection with primary stapled anastomosis. The patient tolerated the procedure well. She was on IV antibiotics on admission and these were continued for a few days; however, they were stopped on 07/14/16. The patient had some postop ileus that resolved over the following days. She was able to tolerate a diet with no issues, was ambulating around the unit and moving her bowels. She will be discharged home without any home medication changes and she will follow up with her PCP as well as with the surgery team. TIME SPENT: Total time spent on this discharge, 40 minutes. This is a summary of the hospitalization. Please see the full medical record for further details. CC: Dr. Lau; Dr. Flores; Dr. Kim* [id number]/[facility] #: [id number] MTDD
== END 2016-07-17 10:25 | disposition home health service (06) | DRG 329 ==
LOC: ED 22:37 → MED 07-11 02:30 → SSU 07-11 16:37
PROVIDERS: ADMIT Hospitalist; ATTEND Hospitalist
PROC: 0DB80ZZ Excision of Small Intestine, Open Approach (ICD-10-PCS; 2016-07-11)
PROC: 0DN80ZZ Release Small Intestine, Open Approach (ICD-10-PCS; 2016-07-11)
PROC: 0WJP4ZZ Inspection of Gastrointestinal Tract, Percutaneous Endoscopic Approach (ICD-10-PCS; principal; 2016-07-11 13:30)
DX: Q43.0 Meckel's diverticulum (displaced) (hypertrophic) (principal); K55.029 Acute infarction of small intestine, extent unspecified; E11.42 Type 2 diabetes mellitus with diabetic polyneuropathy; E66.9 Obesity, unspecified; K91.3 Postprocedural intestinal obstruction; Z88.0 Allergy status to penicillin; Z91.030 Bee allergy status; I10 Essential (primary) hypertension; K21.9 Gastro-esophageal reflux disease without esophagitis; G43.909 Migraine, unspecified, not intractable, without status migrainosus; R41.83 Borderline intellectual functioning; E78.5 Hyperlipidemia, unspecified; F32.9 Major depressive disorder, single episode, unspecified; Z87.891 Personal history of nicotine dependence; Z82.49 Family history of ischemic heart disease and other diseases of the circulatory system; Z83.3 Family history of diabetes mellitus; Z80.9 Family history of malignant neoplasm, unspecified; Y83.6 Removal of other organ (partial) (total) as the cause of abnormal reaction of the patient, or of later complication, without mention of misadventure at the time of the procedure; E87.6 Hypokalemia; K66.0 Peritoneal adhesions (postprocedural) (postinfection); Z79.82 Long term (current) use of aspirin; Z68.31 Body mass index [BMI] 31.0-31.9, adult
CPT/HCPCS: 36415; 71020; 74020; 74177; 80048; 80053; 81003; 83605; 83690; 83735; 85025; 85610; 86140; 88307; 93005; 99406; A9270-GY; C1776; J0330; J0744; J0780; J1170; J1580; J1644; J2250; J2270; J2405; J2704; J3010; J3480; Q9967

== ENCOUNTER 2016-08-18 07:40 | Emergency (ER) | payer MEDICARE, MEDICAID ==
[2016-08-18] MEDS ORDERED: HYDROmorphone* 1 MG/ML 1 ML SYR IV ONE (08:14)
[2016-08-18] MEDS ORDERED: Ondansetron INJ* 2 MG/ML VIAL IV ONE (08:14)
[2016-08-18] MEDS ORDERED: LORazepam INJ* 2 MG/ML 1 ML VIAL IV PUSH ONE (08:19)
[2016-08-18 08:28] LABS: Hematocrit 38 % (35-47); Hemoglobin 12.3 g/dl (12.0-16.0); Mean Corpuscular HGB Conc 32 g/dl (31-36); Mean Corpuscular Hemoglobin 24 pg (27-31); Mean Platelet Volume 9 um3 (7.4-10.4); Red Blood Count 5.12 10^6/ul (4.0-5.4); Red Cell Distribution Width 17 % (10.5-15); White Blood Count 9.3 10^3/ul (3.5-10.8)
[2016-08-18] MEDS: NS 0.9% 1000 ML* 3,000 ML IV ONE ×2 (08:28→10:36)
[2016-08-18 08:29] LABS: Comments Flag Yes; Mean Corpuscular Volume 75 fL (80-97)
[2016-08-18 08:45] LABS: Urine Bilirubin Negative (Negative); Urine Glucose Negative (Negative); Urine Nitrite Negative (Negative)
[2016-08-18 08:45] LABS: BUN/Creatinine Ratio 11.1 (8-20); C Reactive Protein 11.79 mg/L (< 5.00); Calcium 10.1 mg/dL (8.6-10.3); EGFR African American 150.2 (>60); EGFR Non-African American 116.8 (>60); Globulin 4.2 g/dL (2-4); Magnesium 1.3 mg/dL (1.9-2.7); Potassium 3.1 mmol/L (3.5-5.0); Total Bilirubin 1.3 mg/dL (0.2-1.0); Total Protein 8.2 g/dL (6.4-8.9)
[2016-08-18 08:47] LABS: Troponin I 0.01 ng/mL (<0.04)
[2016-08-18] MEDS ORDERED: Iodixanol* (CONTRAST) 320 MG/ML 100 ML SDV IV ONE (08:54)
[2016-08-18] MEDS ORDERED: KCL 20 MEQ/100 ML IVPREMIX* 20 MEQ/100 ML BAG IV ONE (09:41)
[2016-08-18] MEDS ORDERED: Magnesium Sulfate 2 GM IV* 2 GM/50 ML BAG IVPB ONE (09:43)
--- NOTE | 2016-08-18 12:19 | RAD ---
CLINICAL HISTORY: Vomiting and abdominal pain after small bowel obstruction resection. Relevant surgical history also includes cholecystectomy. COMPARISON: Most recent comparison CT is dated July 11, 1797 TECHNIQUE: Contrast enhanced CT examination of the abdomen and pelvis from the lung bases through the initial tuberosities. The patient received 98 mL Visipaque 320 intravenously prior to imaging.The patient received oral contrast as well prior to imaging. FINDINGS: VISUALIZED LUNG BASES: The visualized lung bases are grossly clear. There is no pleural effusion. ABDOMEN AND PELVIS: The liver, spleen, pancreas and adrenal glands are grossly normal in appearance. The gallbladder is surgically absent. The kidneys are normal in appearance without focal mass, calcification or signs of hydronephrosis. The oral contrast has progressed only as far as the distal small bowel which prevents thorough evaluation of the colon. At the right upper quadrant there is surgical material presumably at the site of bowel resection and anastomosis. Proximal to this site of anastomosis the small bowel is dilated up to 3.3 cm with abrupt resumption of normal bowel length distal to the anastomosis. The fluid-filled appendix, best identified on the coronal plane images (image 41) measures up to 9 mm in diameter. There is no significant periappendiceal inflammatory change. There is no gross retroperitoneal or mesenteric lymphadenopathy. The pelvic viscera is normal in appearance. The abdominal aorta and iliac arteries are normal in course and diameter. Degenerative changes include multilevel loss of intervertebral disc height involving the lower thoracic and lumbar spine.There are no sinister bone lesions. IMPRESSION: 1. There is pathologic dilatation of the small bowel proximal to the anastomotic site measuring 3.3 cm in diameter, but oral contrast has progressed beyond the anastomosis into the more distal normal diameter small bowel. CT findings are consistent with mild stricture at the anastomosis. There is no definite leakage of oral contrast into the peritoneal cavity. 2. Top normal fluid-filled appendix measuring up to just under 9 mm in diameter. There are no acute inflammatory changes surrounding the appendix to make a firm CT diagnosis of appendicitis. 3. Additional chronic, degenerative and iatrogenic findings as described in the body of the report.
[2016-08-18 13:03] VITALS: BP 135/64
[2016-08-18] MEDS ORDERED: Potassium Chlor TAB* 20 MEQ TAB.ER PO ONE (13:33)
--- NOTE | 2016-08-18 16:14 | ED ---
Nico Kang SooYoung, scribed for Eric Remy MD on 08/18/16 at 0744 . Abdominal Pain/Female - HPI Summary HPI Summary: A 56 y/o F presents to ED with c/o abd pain onset 0500 while pt was seated watching TV. Pert PMHx: recent small bowel obstruction, surgery with Dr. Flores. Describes the pain as constant, radiates to lower back. Associated: belching, vomiting 2x which mildly approved her sx, mildly dizzy. She's been having nml BMs. Denies abd swelling, denies melena, dysuria, fever, chills, cough, CP. She was unable to sleep last night, and last ate at 0245. - History of Current Complaint Chief Complaint: EDAbdPain Stated Complaint: ABD PAIN Hx Obtained From: Patient Onset/Duration: Lasting Hours, Still Present Timing: Constant Location: Diffuse, Umbilical Radiates: Yes Radiates to: Back - lower Alleviating Factor(s): Vomiting - mildly Associated Signs and Symptoms: Positive: Dizzy - mildly, Back Pain - radiating from abd, Vomiting, Other: - POS: BELCHING. Negative: Fever, Cough, Chest Pain , Constipation, Blood in Stool, Diarrhea Allergies/Adverse Reactions: Allergies Allergy/AdvReac Type Severity Reaction Status Date / Time Penicillins Allergy Mild BODY EDEMA Verified 08/18/16 07:44 BEES Allergy Mild BODY EDEMA Uncoded 08/18/16 07:44 PMH/Surg Hx/FS Hx/Imm Hx Previously Healthy: No Endocrine/Hematology History: Reports: Hx Diabetes - TYPE 2 Cardiovascular History: Reports: Hx Hypercholesterolemia, Hx Hypertension - ON MEDS Denies: Other Cardiovascular Problems/Disorders Respiratory History: Denies: Other Respiratory Problems/Disorders GI History: Reports: Hx Gastroesophageal Reflux Disease Denies: Other GI Disorders History: Denies: Hx Dialysis, Hx Renal Disease Musculoskeletal History: Reports: Hx Arthritis, Hx Tendonitis - RIGHT HAND Sensory History: Reports: Hx Contacts or Glasses - GLASSES Denies: Hx Hearing Aid Opthamlomology History: Reports: Hx Contacts or Glasses - GLASSES Neurological History: Reports: Hx Migraine Denies: Other Neuro Impairments/Disorders - Cancer History Hx Chemotherapy: No Hx Radiation Therapy: No - Surgical History Surgery Procedure, Year, and Place: RIGHT WRIST, 2010, [facility]. GALLBLADDER, 1984, [facility]. 03/18/12, LEFT ELBOW, [facility] Hx Anesthesia Reactions: No Infectious Disease History: Denies: Traveled Outside the [place] in Last 30 Days - Family History Known Family History: Negative: Cardiac Disease, Diabetes - Social History Occupation: Employed Part-time Lives: Alone Alcohol Use: None Hx Substance Use: No Substance Use Type: Reports: None Hx Tobacco Use: Yes - OCCASIONALLY Smoking Status (MU): Light Every Day Tobacco Smoker Type: Cigarettes Amount Used/How Often: 2-3 CIGS A DAY Have You Smoked in the Last Year: Yes Review of Systems Negative: Fever, Chills Negative: Chest Pain Negative: Cough Positive: Abdominal Pain, Vomiting, Other - pos: belching. Negative: Diarrhea Negative: dysuria Positive: Other - pos: radiating to lowre back Neurological: Other - pos: mildly dizzy All Other Systems Reviewed And Are Negative: Yes Physical Exam - Summary Physical Exam Summary: The patient is well-nourished in no acute distress and in no acute pain. The skin is warm and skin color reflects adequate perfusion. DIAPHORETIC. HEENT: The head is normocephalic and atraumatic. The pupils are equal and reactive. The conjunctivae are clear and without drainage. Nares are patent and without drainage. Throat is without erythema and exudate. The external ears are intact. The ear canals are patent and without drainage. The tympanic membranes are intact. ORAL MUCOSA IS DRY. Neck is supple with full range of motion and non-tender. There are no carotid bruits. There is no neck vein distension. Respiratory: Chest is non-tender. Lungs are clear to auscultation and breath sounds are symmetrical and equal. Cardiovascular: Hear is regular rate and rhythm. There is no murmur or rub auscultated. There is no peripheral edema and pulses are symmetrical and equal. Abdomen: The abdomen is soft. There are normal bowel sounds heard in all four quadrants and there is no organomegaly palpated. RIGHT MID-QUADRANT, RLQ AND LLQ PERCUSSION TENDERNESS. LARGE LAPAROTOMY SCAR IS HEALED WELL WITH GOOD CLOSURE. Musculoskeletal: Extremities are non-tender with full range of motion. There is good capillary refill. There is no peripheral edema or calf tenderness elicited. SOME TENDERNESS OVER LOWER L-SPINE. NO PAIN WITH PERCUSSION OF HER HEEL, NO PAIN WITH FLEXION OF KNEE. NO CVA TENDERNESS. Neurological: Patient is alert and oriented to person, place and time. The patient has symmetrical motor strength in all four extremities. Cranial nerves are grossly intact. Deep tendon reflexes are symmetrical and equal in all four extremities. Psychiatric: The patient has an appropriate affect and does not exhibit any anxiety or depression. Triage Information Reviewed: Yes Vital Signs On Initial Exam: Initial Vitals Temp Pulse Resp BP Pulse Ox 97.9 F 60 16 99/77 98 08/18/16 07:41 08/18/16 07:41 08/18/16 07:41 08/18/16 07:41 08/18/16 07:41 Vital Signs Reviewed: Yes Diagnostics - Vital Signs Vital Signs Temp Pulse Resp BP Pulse Ox 08/18/16 07:41 97.9 F 60 16 99/77 98 - Laboratory Lab Results: Lab Results 08/18/16 08/18/16 08/18/16 Range/Units 08:15 08:15 08:15 WBC 9.3 (3.5-10.8) 10^3/ul RBC 5.12 (4.0-5.4) 10^6/ul Hgb 12.3 (12.0-16.0) g/dl Hct 38 (35-47) % MCV 75 L (80-97) fL MCH 24 L (27-31) pg MCHC 32 (31-36) g/dl RDW 17 H (10.5-15) % Plt Count 460 H (150-450) 10^3/ul MPV 9 (7.4-10.4) um3 Neut % (Auto) 70.5 (38-83) % Lymph % (Auto) 22.2 L (25-47) % [place] % (Auto) 5.2 (1-9) % Eos % (Auto) 0.7 (0-6) % Baso % (Auto) 1.4 (0-2) % Absolute Neuts (auto) 6.6 (1.5-7.7) 10^3/ul Absolute Lymphs (auto) 2.1 (1.0-4.8) 10^3/ul Absolute Monos (auto) 0.5 (0-0.8) 10^3/ul Absolute Eos (auto) 0.1 (0-0.6) 10^3/ul Absolute Basos (auto) 0.1 (0-0.2) 10^3/ul Absolute Nucleated RBC 0 10^3/ul Nucleated RBC % 0 INR (Anticoag Therapy) 1.04 (0.89-1.11) Sodium 135 (133-145) mmol/L Potassium 3.1 L (3.5-5.0) mmol/L Chloride 102 (101-111) mmol/L Carbon Dioxide 22 (22-32) mmol/L Anion Gap 11 (2-11) mmol/L BUN 6 (6-24) mg/dL Creatinine 0.54 (0.51-0.95) mg/dL Est GFR ( Amer) 150.2 (>60) Est GFR (Non-Af Amer) 116.8 (>60) BUN/Creatinine Ratio 11.1 (8-20) Glucose 126 H (70-100) mg/dL Lactic Acid (0.5-2.0) mmol/L Calcium 10.1 (8.6-10.3) mg/dL Magnesium 1.3 L (1.9-2.7) mg/dL Total Bilirubin 1.30 H (0.2-1.0) mg/dL AST 10 L (13-39) U/L ALT 13 (7-52) U/L Alkaline Phosphatase 107 H (34-104) U/L Troponin I 0.01 (<0.04) ng/mL C-Reactive Protein 11.79 H (< 5.00) mg/L Total Protein 8.2 (6.4-8.9) g/dL Albumin 4.0 (3.2-5.2) g/dL Globulin 4.2 H (2-4) g/dL Albumin/Globulin Ratio 1.0 (1-3) Amylase 43 (29-103) U/L Lipase 27 (11.0-82.0) U/L Urine Color Urine Appearance Urine pH (5-9) Ur Specific [place] (1.010-1.030) Urine Protein (Negative) Urine Ketones (Negative) Urine Blood (Negative) Urine Nitrate (Negative) Urine Bilirubin (Negative) Urine Urobilinogen (Negative) Ur Leukocyte Esterase (Negative) Urine Glucose (Negative) 08/18/16 08/18/16 08/18/16 Range/Units 08:15 08:35 13:07 WBC (3.5-10.8) 10^3/ul RBC (4.0-5.4) 10^6/ul Hgb (12.0-16.0) g/dl Hct (35-47) % MCV (80-97) fL MCH (27-31) pg MCHC (31-36) g/dl RDW (10.5-15) % Plt Count (150-450) 10^3/ul MPV (7.4-10.4) um3 Neut % (Auto) (38-83) % Lymph % (Auto) (25-47) % [place] % (Auto) (1-9) % Eos % (Auto) (0-6) % Baso % (Auto) (0-2) % Absolute Neuts (auto) (1.5-7.7) 10^3/ul Absolute Lymphs (auto) (1.0-4.8) 10^3/ul Absolute Monos (auto) (0-0.8) 10^3/ul Absolute Eos (auto) (0-0.6) 10^3/ul Absolute Basos (auto) (0-0.2) 10^3/ul Absolute Nucleated RBC 10^3/ul Nucleated RBC % INR (Anticoag Therapy) (0.89-1.11) Sodium (133-145) mmol/L Potassium (3.5-5.0) mmol/L Chloride (101-111) mmol/L Carbon Dioxide (22-32) mmol/L Anion Gap (2-11) mmol/L BUN (6-24) mg/dL Creatinine (0.51-0.95) mg/dL Est GFR ( Amer) (>60) Est GFR (Non-Af Amer) (>60) BUN/Creatinine Ratio (8-20) Glucose (70-100) mg/dL Lactic Acid 0.9 0.3 L (0.5-2.0) mmol/L Calcium (8.6-10.3) mg/dL Magnesium (1.9-2.7) mg/dL Total Bilirubin (0.2-1.0) mg/dL AST (13-39) U/L ALT (7-52) U/L Alkaline Phosphatase (34-104) U/L Troponin I (<0.04) ng/mL C-Reactive Protein (< 5.00) mg/L Total Protein (6.4-8.9) g/dL Albumin (3.2-5.2) g/dL Globulin (2-4) g/dL Albumin/Globulin Ratio (1-3) Amylase (29-103) U/L Lipase (11.0-82.0) U/L Urine Color Yellow Urine Appearance Clear Urine pH 8.0 (5-9) Ur Specific [place] 1.006 L (1.010-1.030) Urine Protein Negative (Negative) Urine Ketones Trace H (Negative) Urine Blood Negative (Negative) Urine Nitrate Negative (Negative) Urine Bilirubin Negative (Negative) Urine Urobilinogen Negative (Negative) Ur Leukocyte Esterase Negative (Negative) Urine Glucose Negative (Negative) Result Diagrams: 08/18/16 08:15 08/18/16 08:15 Lab Statement: Any lab studies that have been ordered have been reviewed, and results considered in the medical decision making process. - CT A/P CT CT Interpretation: Positive (See Comments) - IMPRESSION: 1. There is pathologic dilatation of the small bowel proximal to the anastomotic site measuring 3.3 cm in diameter, but oral contrast has progressed beyond the anastomosis into the more distal normal diameter small bowel. CT findings are consistent with mild stricture at the anastomosis. There is no definite leakage of oral contrast into the peritoneal cavity. 2. Top normal fluid-filled appendix measuring up to just under 9 mm in diameter. There are no acute inflammatory changes surrounding the appendix to make a firm CT diagnosis of appendicitis. 3. Additional chronic, degenerative and iatrogenic findings as described in the body of the report. CT Interpretation Completed By: Radiologist - EKG 1 EKG Rhythm: Sinus Bradycardia EKG Interpretation: nml axis Re-Evaluation - Re-Evaluation 1 Re-Evaluation Time: 13:31 Change: Improved Comment: Discussing results with pt. Abdominal Pain Fem Course/Dx - Course Course Of Treatment: Pt is 56 y/o F presenting with abd pain onset 0500 while at rest. Pert PMHx: recent SBO, gangreous Uvaldo diverticulitis, surgery with Dr. Flores. Constant pain radiating to lower back, vomiting 2x. She's been having nml BMs. Denies abd swelling, denies melena, dysuria, fever. . Pt given fluids, Dilaudid, Zofran and Ativan in ED. Lab works shows low magnesium, low potassium. Trop is 0.01. UA results are negative with trace ketones and specific gravity 1.006. EKG shows sinus jimbo. Pt given MgSO4, KCl. A/P CT IMPRESSION: 1. There is pathologic dilatation of the small bowel proximal to the anastomotic site measuring 3.3 cm in diameter, but oral contrast has progressed beyond the anastomosis into the more distal normal diameter small bowel. CT findings are consistent with mild stricture at the anastomosis. There is no definite leakage of oral contrast into the peritoneal cavity. 2. Top normal fluid-filled appendix measuring up to just under 9 mm in diameter. There are no acute inflammatory changes surrounding the appendix to make a firm CT diagnosis of appendicitis. 3. Additional chronic, degenerative and iatrogenic findings as described in the body of the report. Consulted with Dr. Westbrook, surgery, who reviewed diagnostics and saw no obstruction, contrast went through bowel to cecum, slightly enlarged appendix but not inflammatory to indicate appy. Will D/C home with Percocet and Zofran, instructed to consume only clear liquids for next two days. - Diagnoses Differential Diagnosis: Positive: Other - SBO vs abscess Provider Diagnoses: Hypomagnesemia, Abdominal pain, Hypokalemia - Provider Notifications Discussed Care Of Patient With: Dr. Westbrook, surgery, does not see small bowel obstruction, nml appendix Time Discussed With Above Provider: 12:25 Discharge - Discharge Plan Condition: Stable Disposition: HOME Prescriptions: Ondansetron ODT TAB* [Zofran 4 MG Odt TAB*] 4 mg PO Q8H PRN #20 tab.odt PRN Reason: nausea oxyCODONE/Acetamin 5/325 MG* [Percocet 5/325 TAB*] 1 tab PO Q6H PRN #20 tab MDD 4 PRN Reason: pain Patient Education Materials: Oxycodone/Acetaminophen (By mouth), Hypomagnesemia (ED), Hypokalemia (ED), Ondansetron (By mouth) Referrals: Criss Lau MD [Primary Care Provider] - Additional Instructions: CLEAR LIQUIDS ONLY UNTIL SATURDAY. The documentation as recorded by the Nico lee SooYoung accurately reflects the service I personally performed and the decisions made by , Eric Remy MD.
== END 2016-08-18 14:08 | disposition home or self-care (01) ==
LOC: ED 07:40
DX: E83.42 Hypomagnesemia (principal); R10.9 Unspecified abdominal pain; E87.6 Hypokalemia; F17.210 Nicotine dependence, cigarettes, uncomplicated; Z88.0 Allergy status to penicillin
CPT/HCPCS: 36415; 74177; 80053; 81003; 82150; 83605; 83690; 83735; 84484; 85025; 85610; 86140; 93005; 96360; 96361; 96374; 96375; 99284; A9270-GY; J1170; J2060; J2405; J3480; Q9967

== ENCOUNTER 2017-04-05 10:32 | Day surgery (SDC) | payer MEDICARE, MEDICAID ==
--- NOTE | 2017-03-27 14:17 | HP ---
PREOPERATIVE HISTORY AND PHYSICAL: DATE OF SURGERY/ADMISSION: 04/05/17 [facility] ATTENDING PHYSICIAN: Roberta Blackwood MD * (DICTATED BY PRECIOUS MERCER) PROCEDURE: Left thumb carpometacarpal arthroplasty and de Quervain's release. CHIEF COMPLAINT: Base of left thumb pain and radial-sided left wrist pain. HISTORY OF PRESENT ILLNESS: This is a 56-year-old female who has had ongoing pain at the base of her left thumb. X-rays have showed degenerative arthritis to be present at the CMC joint. She has also had pain along the radial aspect of her wrist along the first dorsal compartment and has been diagnosed with de Quervain's tenosynovitis. She has consented to proceed with surgical intervention for both of these problems in the form of a left thumb CMC arthroplasty and a left wrist de Quervain's release. PAST MEDICAL HISTORY: 1. Diabetes. 2. Hypertension. 3. Hyperlipidemia. 4. Depression. 5. GERD. 6. Migraine headaches. 7. Osteoarthritis, knees. PAST SURGICAL HISTORY: 1. Ulnar nerve decompression, left elbow. 2. De Quervain's release, right wrist. 3. Cholecystectomy. 4. Small bowel resection. 5. Right index finger trigger finger release. CURRENT MEDICATIONS: 1. Aspirin 81 mg daily. 2. Atorvastatin calcium 20 mg daily. 3. Citalopram hydrobromide 20 mg 1.5 tabs daily. 4. Gabapentin 100 mg 3 times a day. 5. Latanoprost 0.005% 1 drop into both eyes daily. 6. Metformin HCl ER 500 mg daily. 7. MiraLAX 3350 NS 17 g every day p.r.n. 8. Naproxen 500 mg q.8 hours p.r.n. 9. Nexium 40 mg daily. 10. Ondansetron 4 mg q.8 hours p.r.n. nausea. 11. Propranolol HCl 80 mg daily. 12. Vitamin B12 1000 mcg daily. 13. Zomig 5 mg 1 tab p.r.n. migraine. ALLERGIES: BEE STING, LISINOPRIL, LOSARTAN, PENICILLIN, reactions unknown. FAMILY MEDICAL HISTORY: Cancer. 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 She works for [employer]. She is a former smoker. She quit approximately 2 years ago. Prior to that, she smoked 2 to 3 cigarettes a day for several years. She denies current recreational drug use and does not drink alcohol. REVIEW OF SYSTEMS: General: Negative for fevers, chills or night sweats. No known anesthesia problems. HEENT: Negative for headache, lightheadedness or syncopal episodes. Integumentary: Negative for abrasions, lesions or open wounds. Cardiothoracic: Positive for hypertension. Negative for chest pain, palpitations or edema. Pulmonary: Negative for shortness of breath with exertion, chronic cough or COPD. GI: Positive for GERD. Negative for nausea, vomiting, diarrhea, or constipation. : Negative for nocturia, urinary frequency, urgency, history of UTIs or kidney problems. Musculoskeletal: Positive for current complaint. Neurological: Positive for depression. Negative for history of seizure, stroke or epilepsy. Endocrine: Positive for diabetes. Negative for thyroid issues. Hematologic: Negative for easy bruising , anemia, excessive bleeding. No history of DVT. Infectious Disease: Negative for history of MRSA, hepatitis C or HIV. PHYSICAL EXAMINATION GENERAL: Well-developed, well-nourished 56-year-old female, in no acute distress, ambulates with a walker. VITAL SIGNS: Height 5 feet 3 inches, weight 170 pounds. Pulse rate 50, blood pressure 98/56. HEENT: Normocephalic, atraumatic. Pupils are equal, round, and reactive to light and accommodation. Extraocular movements are intact. Throat is clear. NECK: Supple. No palpable lymph nodes. PULMONARY: Lungs are clear to auscultation bilaterally. No wheezes, rales or rhonchi. CARDIOVASCULAR: Regular rate and rhythm. S1, S2. No murmurs, rubs or gallops. No edema. ABDOMEN: Positive bowel sounds. Soft, nontender. MUSCULOSKELETAL: On exam of her left hand and wrist, she has tenderness to palpation at the base of the first metacarpal as well as along the first dorsal extensor tendon tunnel. She has increased pain with motion of the thumb and the wrist particularly in wrist extension and radial deviation. She has a positive grind test and a positive Heaven's test. Neurovascular function is intact. NEUROLOGIC: Alert and oriented x3. Cranial nerves II through XII are intact. Sensation is intact to light touch. PERIPHERAL VASCULAR: 2+ radial and ulnar pulses. Negative Kevin test. IMAGING STUDIES: Imaging studies of the left thumb show severe carpometacarpal arthritis. ASSESSMENT: Left thumb CMC joint arthritis and left wrist de Quervain's tenosynovitis. PLAN: The patient is scheduled to undergo a left thumb CMC arthroplasty and de Quervain's release with Dr. Blackwood on 04/05/17. She will return to the office 10 to 14 days postop for followup and suture removal. A prescription for Poplar was e- scribed to the patient's pharmacy for postoperative pain management. PRECIOUS MERCER [id number]/[facility] #: [id number] EBENEZER
[~2017-04-05 10:32] MED LIST: Buffered Lidocaine 0.9% SYRIN* 5 ML/SYR SYRINGE INTRADERM ONE; Ibuprofen TAB* 400 MG ONE; Ibuprofen TAB* 400 MG PO ONE; Sodium Citrate/Citric Acid* 15 ML UDC ONE; Sodium Citrate/Citric Acid* 15 ML UDC PO ONE
[2017-04-05] MEDS ORDERED: Clindamycin 900 MG IVPREMIX(* 900 MG/50 ML SDV IV ONE (10:50)
[2017-04-05] MEDS ORDERED: Buffered Lidocaine 0.9% SYRIN* 5 ML/SYR SYRINGE ONE (14:11)
[2017-04-05] MEDS ORDERED: Lidocaine 1% INJ* 10 MG/ML 30 ML SDV ONE (14:21)
[2017-04-05] MEDS ORDERED: Midazolam* 1 MG/ML 2 ML VIAL (2 MG) ONE (14:26)
[2017-04-05] MEDS ORDERED: fentaNYL* 50 MCG/ML 2 ML VIAL (100 MCG VIAL) ONE (14:26)
[2017-04-05] MEDS ORDERED: Bupivacaine 0.5% SDV PF* 30 ML VIAL ONE (14:58)
[2017-04-05] MEDS ORDERED: Lidocaine 0.5%* 50 ML SDV ONE ×2 (14:59→15:14)
[2017-04-05] MEDS ORDERED: fentaNYL* 50 MCG/ML 2 ML VIAL (100 MCG VIAL) IV PRN (15:01)
[2017-04-05] MEDS ORDERED: oxyCODONE/Acetamin 5/325 MG* TAB PO PRN (15:01)
[2017-04-05] MEDS ORDERED: Bupivacaine 0.5%* 50 ML VIAL ONE (15:03)
[2017-04-05 15:37] VITALS: BP 131/56
--- NOTE | 2017-04-06 00:18 | OP ---
CC: Dr. Blackwood OPERATIVE REPORT: DATE OF OPERATION: 04/05/17 DATE OF : 60 SURGEON: Roberta Blackwood MD YIELD IMPROVEMENT ENGINEER: PRECIOUS Clay ANESTHESIA: IV regional. PRE-OP DIAGNOSIS: Left thumb carpometacarpal arthritis and de Quervain's tenosynovitis. POST-OP DIAGNOSIS: Left thumb carpometacarpal arthritis and de Quervain's tenosynovitis. OPERATIVE PROCEDURE: Left thumb carpometacarpal arthroplasty and de Quervain's release. ESTIMATED BLOOD LOSS: Zero. TOURNIQUET TIME: 35 minutes. INDICATION FOR PROCEDURE: [place] is a 56-year-old woman with painful arthritis at the base of her th umb as well as tendonitis in her first dorsal compartment. She presents for first compartment releas e and left thumb CMC arthroplasty after failing conservative treatment. DESCRIPTION OF PROCEDURE: The patient was brought to the operating room and was given IV regional an esthetic with tourniquet around her upper arm. Skin of her left upper extremity was prepped and drap ed in the usual sterile fashion. An S- shaped incision was made centered at the thumb CMC joint. We dissected bluntly the subcutaneous tissue, branches of the radial sensory nerve were located and the y were retracted by the clinical services assistant, Shayla Flynn. The first compartment tendons were then c ompletely released and retracted again by the clinical services assistant. The radial artery was dissected of f of the CMC joint capsule and retracted by the clinical services assistant. A distally based U-shaped flap w as created at the thumb CMC joint and it was subperiosteally dissected off the trapezium. Trapezium w as removed in its entirety and then the wound was irrigated. The CMC joint capsule was secured to th e FCR tendon with a 4-0 nylon suture and the remainder of the capsule was closed with 4-0 nylon sutur e. This gave very nice position to the metacarpal and the MP joint was flexed to about 30 degrees, s o a tendon transfer was not performed. The skin edges were reapproximated with 4-0 nylon suture. Th e wound was dressed with Xeroform, 4x4s, Webril, and a thumb spica splint with the metacarpal abducte d. The patient tolerated the procedure well and was brought to the recovery room in good condition. [id number]/[facility] #: [id number]
== END 2017-04-05 16:09 | disposition home or self-care (01) ==
LOC: OREAST 10:32
PROVIDERS: ATTEND Orthopaedic Surgery
DX: M18.12 Unilateral primary osteoarthritis of first carpometacarpal joint, left hand (principal); M65.4 Radial styloid tenosynovitis [de Quervain]; F32.9 Major depressive disorder, single episode, unspecified; K21.9 Gastro-esophageal reflux disease without esophagitis; G43.909 Migraine, unspecified, not intractable, without status migrainosus; M17.0 Bilateral primary osteoarthritis of knee; Z79.82 Long term (current) use of aspirin; Z88.0 Allergy status to penicillin; Z88.8 Allergy status to other drugs, medicaments and biological substances; Z91.030 Bee allergy status; Z87.891 Personal history of nicotine dependence
CPT/HCPCS: A9270-GY; J2250; J3010

== ENCOUNTER 2017-11-28 13:09 | Emergency (ER) | payer MEDICARE, MEDICAID ==
--- OUTSIDE RECORDS SUMMARY | 2017-11-28 14:26 | XMS REPORT ---
:1960 External Reference #:[id number] Author Organization [facility] [email or web address] Address [address] [place] [address] [place] [address] Phone [phone] Care Team Providers Name Role Phone Criss Lau MD Primary Care Physician Unavailable Payers Type Date Identification Numbers Payment Provider Subscriber Medicare Primary Policy Number: [id number] Medicare Odessa Elias PayID: [id number] [address] [place] [address] Medigap Part B Policy Number: [id number] Medicaid Odessa Elias PayID: [id number] [address] [place] [address] Problems Date Description Provider Status Onset: 07/13/2010 Type 2 diabetes mellitus Felicity Negrete M.D., FACP Active Onset: 07/13/2010 Pure hypercholesterolemia Felicity Negrete M.D., FACP Active Onset: 07/13/2010 Benign essential hypertension Felicity Negrete M.D., FACP Active Onset: 07/15/2014 Migraine without aura, not Cherelle Francis M.D. Active refractory Family History Date Family Member(s) Problem(s) Comments General Cancer Father due to Cancer () Mother due to Diabetes () First Brother Alive And Well First Brother 59 : (age 50 Years) Second Brother due to [place] First Sister Alive And Well First Sister 67 First Sister Prediabetes age 66 Social History Type Date Description Comments Marital Status Single partner of 27 years in April 2015 Occupation [email or web address] Cigarette Use Former Cigarette Smoker quit in 2013, started in her teens, never smoked more than 4 cigarettes in a day, usually less. Quit in 2014 (40 yr) ETOH Use Denies alcohol use Smoking Patient is a former smoker Exercise Type/Frequency Does not exercise Allergies, Adverse Reactions, Alerts Date Description Reaction Status Severity Comments 11/02/2009 Penicillin swelling active 11/02/2009 Bee Sting active 07/25/2015 Losartan cough active 07/25/2015 Lisinopril cough active Medications Medication Date Status Form Strength Qnty SIG Indications Ordering Provider Shower Chair Active 1units For daily R26.81 Criss 018 use Dx r Cotton, 26.81 M.D. Amlodipine Active Tablets 2.5mg 30tabs Take One I10 Criss Besylate 018 Tablet By Cotton, Mouth M.D. Every Day Vitamin B12 Active Tablets ER 1000mcg 30tabs 1 by R26.81 Criss 017 mouth Cotton, every day M.D. Walker Active Misc 1units 4 wheels, R26.81 Criss 017 brakes, Cotton, seat and M.D. basket. r26.81 G62.9 Atorvastatin 07/06/2016 Active Tablets 20mg 90tabs Take One E78.5 Criss Calcium Tablet By Cotton, Mouth Every M.D. Day Miralax 11/17/2015 Active Powder 3350NF 510unit 17 gm every R10.13 Criss s day mixed Cotton, w/ 8 oz M.D. water/juice as needed Gabapentin 02/25/2015 Active Capsules 100mg 90caps Take One E11.40 Criss Capsule By Cotton, Mouth Three M.D. Times A Day Epipen 2-Clifford 02/15/2015 Active Solution 0.3mg/ 1units for use as Criss Auto-Inject 0.3ML directed Tom Lau Aspirin 12/16/[address] 81mg 90tabs 1 by mouth Criss once daily Tom Lau Zomig 07/16/2013 Active Tablets 5mg 12tabs take 1 Donald S. tablet as Christiano, needed for M.D. migraine may repeat once in 2 hours. maximum 2 days per week Naproxen 03/13/2012 Active Tablets 500mg 60tabs 1 tab by Donald STroy mouth every Fabius, 8 hours as M.D. needed Citalopram 11/28/2011 Active Tablets 20mg 135tabs Take One Criss Hydrobromide And Cotton, One-Half M.D. Tablets By Mouth Once Daily Metformin HCL 08/30/2011 Active Tablets ER 500mg 90tabs take 1 Criss ER 24HR tablet by Cotton, mouth every M.D. day Nexium 11/24/[address] 40mg 90caps Take One Criss Capsule By Cotton, Mouth Every M.D. Day Latanoprost Active Solution 0.005% Instill 1 Adarsh, Drop Into Brittaney Lewis, Both Eyes O.D. AT Bedtime Propranolol HCL 07/04/2017 - Hx Tablets 10mg 28tabs take 1 I10 Criss 08/13/2017 tablet by Cotton, mouth 4 M.D. times daily for a week Hydrocodone-Haroldo 03/20/2017 - Hx Tablets 5-325m 15tabs 1 tab by Roberta taminophen 04/18/2017 g mouth every Blackwood, 4- 6 hours M.D. as needed pain Ondansetron 08/18/2016 - Hx Tablets 4mg Dissolve Unknown 08/26/2017 Dispers One Tablet On The Tongue Every 8 Hours as Needed For Nausea Oxycodone-Aceta 08/18/2016 - Hx Tablets 5-325m 20tabs Take One Unknown minophen 12/18/2016 g Tablet By Mouth Every 6 Hours as Needed For Pain . MDD 4 Meloxicam 04/27/2015 - Hx Tablets 7.5mg 30tabs take 1 pill Roberta 11/17/2015 a day by lana Blackwood M.D. Meloxicam 01/03/2015 - Hx Tablets 7.5mg 30tabs take 1 pill Roberta 07/01/2015 a day by lana Blackwood M.D. Auvi-Q 12/16/2014 - Hx Solution 0.3mg/ 1units inject s/c 250.00 Criss 02/15/2015 Auto-Inject 0.3ML as directed Tom Lau Epipen 2-Clifford 07/15/2014 - Hx Solution 0.3mg/ 2units use one 250.00 Anni 12/16/2014 Auto-Inject 0.3ML time as Isha, N.P. directed Propranolol HCL 07/15/2014 - Hx Tablets 80mg 90tabs take one I10 Sabirna 07/04/2017 tablet by MD Stefano mouth every day Amlodipine 12/04/2013 - Hx Tablets 2.5mg 90tabs take 1 I10 Criss Besylate 08/10/2016 tablet by Cotton, mouth every M.D. day Propranolol HCL 11/12/2013 - Hx Caps ER 120mg 90caps 1 by mouth 346.10 Cherelle M. ER 07/15/2014 24HR every day Domonique Francis. Voltaren 11/02/2013 - Hx Gel 1% 100g apply 2g to Funmi 07/01/2015 affected Saroj, area four M.D. times a day prn Naproxen 08/31/2013 - Hx Tablets 500mg 60tabs 1 tab by Funmi 06/14/2014 mouth twice Saroj, a day. Take M.D. with food. Tramadol 06/04/2013 - Hx Tablets 37.5-3 60tabs 1-2 tabs po Roberta Hydrochloride/A 07/30/2013 25mg q 4-6 hrs Blackwoodsherri gibbons prn pain M.D. Zomig ZMT 12/23/2012 - Hx Tablets 5mg 12tabs 1 tab Cherelle M. 12/23/2012 Dispers sublingual Stackman, as needed M.D. for headache Zomig 12/23/2012 - Hx Tablets 5mg 12tabs take 1 Cherelle M. 07/16/2013 tablet as Stackman, needed for M.D. migraine Epipen 05/07/2012 - Hx Device 0.3mg/ 2units use one Felicity 07/15/2014 0.3ML time as enzo Negrete M.D., FACP Propranolol HCL 03/13/2012 - Hx Caps ER 80mg 90caps 1 cap by Cherelle Galvin ER 12/04/2013 24HR mouth every Stackman, day M.D. Onetouch Ultra 10/12/2011 - Hx Strips 100unit Use as Felicity Blue 08/03/2015 s Enzo Negrete M.D., FACP Delica Lancets 07/25/2011 - Hx 100unit use as Felicity 07/30/2013 s directed Tom Negrete, FACP Onetouch Test 03/21/2011 - Hx Ultra 60units Use as Felicity Strips 10/12/2011 Mini directed. Tom Negrete, FACP Onetouch 03/21/2011 - Hx 60units use as Felicity Lancets 08/03/2015 directed Penelope, (once M.D., FACP daily) Losartan 07/13/2010 - Hx Tablets 50mg 90tabs Take 1 401.1 Felicity Potassium 12/04/2013 Tablet By Penelope, Mouth Once M.D., FACP Daily Metformin HCL 05/18/2010 - Hx Tabs 500mg 90tabs Take 1 Felicity 07/25/2011 Tablet By Penelope, Mouth Every M.D., FACP Day Simvastatin 05/01/2010 - Hx Tablets 20mg 90tabs take 1 E78.5 Criss 07/06/2016 tablet at [place], bedtime M.D. Omeprazole 12/08/2009 - Hx Capsules DR 40mg 90caps Take 1 Felicity 07/25/2011 Capsule Penelope, Every Day M.D., FAC Divalproex 11/03/2009 - Hx 500mg 2 AT Felicity Sodium ER 05/07/2012 Bedtime Tom Negrete, FACP Zomig 11/03/2009 - Hx Tablets 5mg 48tabs 1 tablet at Cherelle M. 12/23/2012 onset of Stackman, headache as M.D. needed Naproxen 11/03/2009 - Hx Tablets 500mg 60tabs 1 by mouth Felicity 09/16/2012 twice daily Penelope, as needed M.D., FAC Citalopram 11/03/2009 - Hx Tablets 10mg 90.0tab Take 1 Felicity Hydrobromide 11/28/2011 s Tablet By Penelope, Mouth Daily M.D., FACP Metformin ER 11/02/2009 - Hx 500mg 90units 1 by mouth Felicity 11/06/2012 daily Tom Negrete, FACP Microlet 11/02/2009 - Hx Misc 100unit for once Felicity Lancets 07/25/2011 s daily Penelope, testing M.D., FACP Nortriptyline 11/02/2009 - Hx Capsules 10mg 60caps 1 po qhs Felicity HCL 11/03/2009 Tom Negrete, FACP Ascencia 11/02/2009 - Hx 100unit for once Felicity Contour Test 03/21/2011 s daily Penelope Strips testing M.Danny, FACP Omeprazole 11/02/2009 - Hx Capsules DR 20mg 30caps 1 by mouth Felicity 12/08/2009 daily Tom Negrete, FACP Zocor 11/02/2009 - Hx Tablets 20mg 90tabs 1 at Felicity 05/01/2010 bedtime Tom Negrete, FACP Maxalt 11/02/2009 - Hx Tablets 10mg 18tabs po one at Felicity 11/03/2009 onset; august Penelope, repeat in 2 M.D., FACP hours x1. max daily dose three. Topamax 11/02/2009 - Hx Tablets 25mg ask Felicity 11/03/2009 [facility]te, [facility] Epipen 11/02/2009 - Hx Device 0.3mg/ 2units use one Felicity 05/07/2012 0.3ML time as enzo Negrete M.D., [facility] Lisinopril 11/02/2009 - Hx Tabs 20mg 90tabs Take One Felicity 07/13/2010 Tablet By Penelope, Mouth Daily M.DTroy, [facility] Propranolol HCL - Hx Tablets 10mg 30tabs pt states Unknown 05/07/2012 she is taking 1 80 mg tab daily Aspir-81 - Hx Tablets DR 81mg 1 po qd Unknown 07/30/2013 Nasonex - Hx Suspension 50mcg/ 1units 2 sprays to Unknown 07/01/2015 Act each nostril twice daily Medications Administered in Office Medication Date Status Form Strength Qnty SIG Indications Ordering Provider Depomedrol Administered Injection Roberta 40MG Alma Blackwood M.D. Depomedrol Administered Injection Roberta 40MG 017 Tom Blackwood Depomedrol Administered Injection Roberta 80MG 015 Tom Blackwood Immunizations CPT Code Status Date Vaccine Lot # [id number] Given 02/16/2016 Influenza Virus Vaccine, Quadrivalent, Split [id number] Virus[place] [address] Given 01/21/2015 Influenza Virus Vaccine, Quadrivalent, Split, [id number] Preservative Free 84040 Given 01/24/2014 Flu Vaccine Split Virus Preservative Free For Indiv 3Yr Older 91716 Given 11/28/2011 Pneumonia Vaccine [id number] Given 03/21/2011 Afluria Vaccine [id number] 61982 Given 12/30/2009 Influenza Virus 3Yrs & Over 34442 Given 02/28/2009 Influenza Virus Vaccine, Pandemic Formulation 69076 Given 02/24/2009 Influenza Virus 3Yrs & Over 23548 Given 02/26/2008 Influenza Virus 3Yrs & Over 75409 Given 02/26/2008 Influenza Virus 3Yrs & Over 75115 Given 03/13/2007 Influenza Virus 3Yrs & Over 45760 Given 03/13/2007 Influenza Virus 3Yrs & Over 79853 Given 02/22/2006 Influenza Virus 3Yrs & Over Vital Signs Date Vital Result Comment 11/27/2017 Height 63 inches 5'3" Weight 170.00 lb Heart Rate 64 /min BP Systolic 127 mmHg BP Diastolic 62 mmHg Body Temperature 97.4 F BMI (Body Mass Index) 30.1 kg/m2 10/17/2017 Height 61.5 inches 5'1.50" Weight 170.00 lb Heart Rate 53 /min BP Systolic Sitting 126 mmHg BP Diastolic Sitting 82 mmHg O2 % BldC Oximetry 100 % BMI (Body Mass Index) 31.6 kg/m2 08/27/2017 Height 63 inches 5'3" Weight 170.00 lb Heart Rate 62 /min BP Systolic Sitting 102 mmHg BP Diastolic Sitting 49 mmHg Body Temperature 98.3 F O2 % BldC Oximetry 98 % BMI (Body Mass Index) 30.1 kg/m2 08/14/2017 Height 63 inches 5'3" Weight 171.00 lb Heart Rate 56 /min BP Systolic Sitting 118 mmHg BP Diastolic Sitting 76 mmHg Respiratory Rate 16 /min BMI (Body Mass Index) 30.3 kg/m2 07/04/2017 Weight 170.00 lb Heart Rate 48 /min BP Systolic Sitting 120 mmHg BP Diastolic Sitting 70 mmHg Body Temperature 97.7 F O2 % BldC Oximetry 98 % 06/27/2017 Height 63 inches 5'3" Heart Rate 54 /min BP Systolic 138 mmHg BP Diastolic 70 mmHg Respiratory Rate 16 /min Body Temperature 97.7 F Pain Level 0 05/16/2017 Height 63 inches 5'3" Weight 170.00 lb Heart Rate 48 /min BP Systolic 112 mmHg BP Diastolic 57 mmHg Respiratory Rate 16 /min Pain Level 0 BMI (Body Mass Index) 30.1 kg/m2 04/18/2017 Height 63 inches 5'3" Weight 170.00 lb Heart Rate 76 /min Respiratory Rate 14 /min Body Temperature 98.6 F Pain Level 1 BMI (Body Mass Index) 30.1 kg/m2 03/20/2017 Height 63 inches 5'3" Weight 170.00 lb Heart Rate 50 /min BP Systolic 98 mmHg BP Diastolic 56 mmHg Body Temperature 97.3 F BMI (Body Mass Index) 30.1 kg/m2 02/11/2017 Weight 170.00 lb Heart Rate 53 /min BP Systolic 120 mmHg BP Diastolic 80 mmHg O2 % BldC Oximetry 99 % 01/11/2017 Weight 172.25 lb Heart Rate 48 /min BP Systolic 120 mmHg BP Diastolic 66 mmHg Body Temperature 97.5 F O2 % BldC Oximetry 99 % 12/19/2016 Heart Rate 66 /min BP Systolic Sitting 120 mmHg BP Diastolic Sitting 78 mmHg Body Temperature 97.6 F Pain Level 0 08/22/2016 Weight 174.00 lb Heart Rate 69 /min BP Systolic Sitting 132 mmHg BP Diastolic Sitting 70 mmHg Body Temperature 97.1 F O2 % BldC Oximetry 96 % 08/17/2016 Height 63 inches 5'3" Weight 173.00 lb Heart Rate 72 /min BP Systolic 142 mmHg BP Diastolic 82 mmHg Respiratory Rate 16 /min Body Temperature 97.2 F BMI (Body Mass Index) 30.6 kg/m2 08/10/2016 Heart Rate 53 /min BP Systolic Sitting 104 mmHg R arm BP Diastolic Sitting 60 mmHg R arm BP Systolic Standing 100 mmHg L arm BP Diastolic Standing 64 mmHg L arm 08/02/2016 Height 63 inches 5'3" Weight 173.00 lb Heart Rate 68 /min BP Systolic Sitting 108 mmHg BP Diastolic Sitting 72 mmHg Respiratory Rate 16 /min BMI (Body Mass Index) 30.6 kg/m2 07/20/2016 Height 63 inches 5'3" Weight 171.00 lb Heart Rate 62 /min BP Systolic 116 mmHg BP Diastolic 70 mmHg Respiratory Rate 18 /min Body Temperature 97.3 F BMI (Body Mass Index) 30.3 kg/m2 07/06/2016 Height 60 inches 5'0" Weight 180.00 lb Heart Rate 63 /min BP Systolic 104 mmHg BP Diastolic 76 mmHg O2 % BldC Oximetry 98 % BMI (Body Mass Index) 35.1 kg/m2 07/06/2016 Height 60 inches 5'0" Weight 180.00 lb BMI (Body Mass Index) 35.1 kg/m2 07/02/2016 Height 60 inches 5'0" Weight 183.00 lb Heart Rate 50 /min BP Systolic 108 mmHg BP Diastolic 55 mmHg Respiratory Rate 16 /min Body Temperature 96.3 F BMI (Body Mass Index) 35.7 kg/m2 05/21/2016 Height 60 inches 5'0" Weight 183.00 lb Heart Rate 64 /min Respiratory Rate 18 /min Pain Level 10 BMI (Body Mass Index) 35.7 kg/m2 03/19/2016 Weight 183.00 lb Heart Rate 54 /min BP Systolic Sitting 126 mmHg BP Diastolic Sitting 80 mmHg Respiratory Rate 15 /min Body Temperature 98.0 F O2 % BldC Oximetry 97 % 02/16/2016 Weight 182.00 lb Heart Rate 61 /min BP Systolic Sitting 121 mmHg BP Diastolic Sitting 63 mmHg BP Systolic Standing 122 mmHg BP Diastolic Standing 80 mmHg BP Systolic Lying Down 130 mmHg BP Diastolic Lying Down 80 mmHg Body Temperature 98.0 F O2 % BldC Oximetry 97 % 12/09/2015 Weight 180.25 lb Heart Rate 58 /min BP Systolic Sitting 112 mmHg BP Diastolic Sitting 70 mmHg Body Temperature 97.9 F O2 % BldC Oximetry 98 % 11/17/2015 Weight 183.00 lb Heart Rate 56 /min BP Systolic Sitting 126 mmHg BP Diastolic Sitting 80 mmHg Respiratory Rate 15 /min Body Temperature 98.1 F O2 % BldC Oximetry 97 % 10/13/2015 Height 60 inches 5'0" Weight 180.00 lb Heart Rate 68 /min Respiratory Rate 16 /min Pain Level 5 BMI (Body Mass Index) 35.1 kg/m2 08/25/2015 Height 60 inches 5'0" Weight 181.00 lb Heart Rate 64 /min BP Systolic Sitting 118 mmHg BP Diastolic Sitting 66 mmHg Respiratory Rate 18 /min Pain Level 5 BMI (Body Mass Index) 35.3 kg/m2 08/04/2015 Height 60 inches 5'0" Weight 181.00 lb Heart Rate 52 /min BP Systolic Sitting 128 mmHg BP Diastolic Sitting 74 mmHg Respiratory Rate 16 /min BMI (Body Mass Index) 35.3 kg/m2 07/01/2015 Height 60 inches 5'0" Weight 179.00 lb Heart Rate 53 /min BP Systolic Sitting 136 mmHg BP Diastolic Sitting 78 mmHg Body Temperature 97.3 F O2 % BldC Oximetry 98 % BMI (Body Mass Index) 35.0 kg/m2 04/22/2015 Height 63 inches 5'3" Weight 179.00 lb Heart Rate 66 /min BP Systolic Sitting 124 mmHg BP Diastolic Sitting 80 mmHg Respiratory Rate 15 /min Body Temperature 97.0 F O2 % BldC Oximetry 98 % BMI (Body Mass Index) 31.7 kg/m2 02/25/2015 Height 63 inches 5'3" Weight 182.00 lb Heart Rate 54 /min BP Systolic Sitting 132 mmHg BP Diastolic Sitting 82 mmHg Body Temperature 96.9 F Pain Level 9 O2 % BldC Oximetry 98 % BMI (Body Mass Index) 32.2 kg/m2 01/27/2015 Height 63 inches 5'3" Weight 182.00 lb Heart Rate 60 /min BP Systolic Sitting 122 mmHg BP Diastolic Sitting 72 mmHg Respiratory Rate 16 /min BMI (Body Mass Index) 32.2 kg/m2 01/20/2015 Height 63 inches 5'3" Weight 190.00 lb Pain Level 6 BMI (Body Mass Index) 33.7 kg/m2 01/03/2015 Height 63 inches 5'3" Weight 190.00 lb Pain Level 4 BMI (Body Mass Index) 33.7 kg/m2 12/16/2014 Weight 187.00 lb Heart Rate 48 /min BP Systolic Sitting 129 mmHg BP Diastolic Sitting 77 mmHg 07/29/2014 Height 63 inches 5'3" Weight 192.00 lb Pain Level 8 BMI (Body Mass Index) 34.0 kg/m2 07/15/2014 Height 63 inches 5'3" Weight 198.00 lb Heart Rate 64 /min BP Systolic Sitting 110 mmHg BP Diastolic Sitting 70 mmHg Respiratory Rate 16 /min BMI (Body Mass Index) 35.1 kg/m2 07/15/2014 Weight 198.75 lb Heart Rate 78 /min BP Systolic Sitting 122 mmHg BP Diastolic Sitting 70 mmHg Body Temperature 96.6 F 05/20/2014 Weight 201.00 lb Heart Rate 49 /min BP Systolic Sitting 107 mmHg BP Diastolic Sitting 64 mmHg O2 % BldC Oximetry 98 % 12/25/2013 Weight 206.50 lb Heart Rate 56 /min BP Systolic Sitting 108 mmHg BP Diastolic Sitting 76 mmHg Body Temperature 98.2 F O2 % BldC Oximetry 96 % 12/04/2013 Weight 210.00 lb Heart Rate 72 /min BP Systolic Sitting 118 mmHg BP Diastolic Sitting 72 mmHg Body Temperature 96.8 F 11/12/2013 Height 63 inches 5'3" Weight 202.00 lb Heart Rate 60 /min BP Systolic Sitting 124 mmHg BP Diastolic Sitting 78 mmHg Body Temperature 97.1 F O2 % BldC Oximetry 98 % Peak Flow Meter 350 BMI (Body Mass Index) 35.8 kg/m2 11/12/2013 Height 63 inches 5'3" Weight 205.00 lb Heart Rate 62 /min BP Systolic Sitting 120 mmHg BP Diastolic Sitting 70 mmHg Respiratory Rate 205 /min BMI (Body Mass Index) 36.3 kg/m2 11/02/2013 Height 63 inches 5'3" Weight 192.00 lb Pain Level 5 BMI (Body Mass Index) 34.0 kg/m2 08/31/2013 Height 63 inches 5'3" Weight 92.00 lb Body Temperature 98.4 F BMI (Body Mass Index) 16.3 kg/m2 07/31/2013 Height 63 inches 5'3" Weight 192.00 lb Heart Rate 56 /min BP Systolic 111 mmHg BP Diastolic 76 mmHg BMI (Body Mass Index) 34.0 kg/m2 07/23/2013 Height 63 inches 5'3" Weight 192.00 lb Heart Rate 58 /min BP Systolic 126 mmHg BP Diastolic 72 mmHg BMI (Body Mass Index) 34.0 kg/m2 06/18/2013 Height 63 inches 5'3" Heart Rate 72 /min BP Systolic 119 mmHg BP Diastolic 75 mmHg 06/04/2013 Heart Rate 63 /min BP Systolic 113 mmHg BP Diastolic 62 mmHg 05/15/2013 Heart Rate 60 /min BP Systolic Sitting 130 mmHg BP Diastolic Sitting 80 mmHg Respiratory Rate 16 /min 05/14/2013 Weight 192.75 lb Heart Rate 58 /min BP Systolic Sitting 132 mmHg BP Diastolic Sitting 80 mmHg 01/08/2013 Height 63 inches 5'3" Weight 201.00 lb Heart Rate 60 /min BP Systolic 138 mmHg BP Diastolic 80 mmHg BMI (Body Mass Index) 35.6 kg/m2 11/07/2012 Heart Rate 60 /min BP Systolic Sitting 120 mmHg BP Diastolic Sitting 74 mmHg Respiratory Rate 15 /min 11/06/2012 Weight 204.75 lb Heart Rate 60 /min BP Systolic Sitting 104 mmHg BP Diastolic Sitting 70 mmHg 05/07/2012 Height 60.75 inches 5'0.75" Weight 208.00 lb Heart Rate 60 /min BP Systolic Sitting 128 mmHg BP Diastolic Sitting 80 mmHg BMI (Body Mass Index) 39.6 kg/m2 11/28/2011 Height 60.5 inches 5'0.50" Weight 210.25 lb Heart Rate 56 /min BP Systolic Sitting 122 mmHg BP Diastolic Sitting 70 mmHg BMI (Body Mass Index) 40.4 kg/m2 07/25/2011 Height 60.5 inches 5'0.50" Weight 210.25 lb Heart Rate 58 /min BP Systolic Sitting 120 mmHg BP Diastolic Sitting 70 mmHg BMI (Body Mass Index) 40.4 kg/m2 03/21/2011 Height 60.5 inches 5'0.50" Weight 214.00 lb Heart Rate 64 /min BP Systolic Sitting 128 mmHg L BP Diastolic Sitting 68 mmHg L BMI (Body Mass Index) 41.1 kg/m2 11/16/2010 Height 60.5 inches 5'0.50" Weight 209.00 lb Heart Rate 62 /min BP Systolic Sitting 124 mmHg BP Diastolic Sitting 80 mmHg BMI (Body Mass Index) 40.1 kg/m2 07/13/2010 Weight 202.75 lb Heart Rate 60 /min BP Systolic 140 mmHg BP Diastolic 78 mmHg 01/17/2010 Weight 192.00 lb Heart Rate 66 /min BP Systolic 108 mmHg BP Diastolic 70 mmHg Results Test Date Test Result H/L Range Note Liver Function Panel 08/02/2017 Total Protein 6.8 g/dL 6.4-8.9 Albumin 3.6 g/dL 3.2-5.2 Globulin 3.2 g/dL 2-4 Albumin/Globulin Ratio 1.1 1-3 Total Bilirubin 1.10 mg/dL High 0.2-1.0 Direct Bilirubin 0.20 mg/dL High 0.03-0.18 Indirect Bilirubin 0.9 mg/dL 0.3-1.0 Alkaline Phosphatase 97 U/L 34-104 Alt 12 U/L 7-52 Ast 12 U/L Low 13-39 Lipid Profile (Trig/Chol/HDL) 06/27/2017 Triglycerides 142 mg/dL 1, 2 Cholesterol 149 mg/dL 1, 3 HDL Cholesterol 57.4 mg/dL 1, 4 LDL Cholesterol 63 mg/dL 1, 5 Comp Metabolic Panel 06/27/2017 Sodium 138 mmol/L 133-145 1 Potassium 3.8 mmol/L 3.5-5.0 1 Chloride 107 mmol/L 101-111 1 Co2 Carbon Dioxide 23 mmol/L 22-32 1 Anion Gap 8 mmol/L 2-11 1 Glucose 93 mg/dL 70-100 1 Blood Urea Nitrogen 10 mg/dL 6-24 1 Creatinine 0.55 mg/dL 0.51-0.95 1 BUN/Creatinine Ratio 18.2 8-20 1 Calcium 9.3 mg/dL 8.6-10.3 1 Total Protein 6.9 g/dL 6.4-8.9 1 Albumin 3.7 g/dL 3.2-5.2 1 Globulin 3.2 g/dL 2-4 1 Albumin/Globulin Ratio 1.2 1-3 1 Total Bilirubin 1.20 mg/dL High 0.2-1.0 1 Alkaline Phosphatase 117 U/L High 34-104 1 Alt 13 U/L 7-52 1 Ast 12 U/L Low 13-39 1 Egfr Non- 113.9 >60 1 Egfr 146.5 >60 1, 6 Laboratory test 06/27/2017 Hemoglobin A1c (Glyco 6.1 % High 4.0-5.6 1, 7 finding HGB) Urine Microalbumin 06/27/2017 Ur Microalbumin (mg/L) < 15.0 mg/L 1 Random Urine Creatinine 158.40 mg/dL 1 Urine Microalbumin/Creatinine TNP ug/mg <31 1, 8 Laboratory test 04/05/2017 Surgical Pathology SEE RESULT BELOW 9, 10 finding Laboratory test 04/05/2017 Point of Care 91 mg/dL 70-100 11 finding Glucose Laboratory test 01/25/2017 Vitamin B12 307 pg/mL 180-914 12 finding Laboratory test 01/11/2017 Hemoglobin A1c 6.0 5-7 finding Laboratory test 10/05/2016 Ast (Sgot) 12 U/L Low 13-39 13 finding Alt 13 U/L 7-52 14 Lipid Profile (Trig/Chol/HDL) 10/05/2016 Triglycerides 97 mg/dL 15 Cholesterol 150 mg/dL 16 HDL Cholesterol 60.0 mg/dL 17 LDL Cholesterol 71 mg/dL 18 Laboratory test 08/18/2016 Lactic Acid 0.3 mmol/L Low 0.5-2.0 19 finding Laboratory test 07/11/2016 Surgical Pathology SEE RESULT BELOW 20 finding Lipid Profile 07/02/2016 Triglycerides 154 mg/dL 21, 22 (Trig/Chol/HDL) Cholesterol 224 mg/dL 21, 23 HDL Cholesterol 68.8 mg/dL 21, 24 LDL Cholesterol 124 mg/dL 21, 25 Laboratory test 07/02/2016 Hemoglobin A1c 6.2 % High Less than , finding (Glyco HGB) 6.0 Urine Microalbumin 07/02/2016 Urine Creatinine 134.69 21 Random mg/dL Ur Microalbumin (mg/L) < 15.0 mg/L 21 Urine Microalbumin/Creatinine TNP ug/mg <31 , Laboratory test finding 06/05/2016 TSH (Thyroid Stim Horm) 2.34 mcIU/mL 0.34-5.60 Comp Metabolic Panel 06/05/2016 Sodium 136 mmol/L 133-145 Chloride 105 mmol/L 101-111 Co2 Carbon Dioxide 25 mmol/L 22-32 Glucose 83 mg/dL 70-100 Blood Urea Nitrogen 11 mg/dL 6-24 Creatinine 0.62 mg/dL 0.51-0.95 BUN/Creatinine Ratio 17.7 8-20 Calcium 9.3 mg/dL 8.6-10.3 Total Protein 7.5 g/dL 6.4-8.9 Albumin 3.6 g/dL 3.2-5.2 Globulin 3.9 g/dL 2-4 Albumin/Globulin Ratio 0.9 Low 1-3 Total Bilirubin 0.90 mg/dL 0.2-1.0 Alkaline Phosphatase 90 U/L 34-104 Alt 16 U/L 7-52 Egfr Non- 99.6 >60 Egfr 128.1 >60 28 Potassium TNP mmol/L 3.5-5.0 29 Anion Gap TNP mmol/L 2-11 Ast TNP U/L 13-39 Laboratory test finding 06/05/2016 Lactic Acid 0.7 mmol/L 0.5-2.0 30 Urinalysis Profile 06/05/2016 Urine Color Straw Urine Appearance Clear Urine Specific [place] 1.003 Low 1.010-1.030 Urine pH 5.0 5-9 Urine Urobilinogen Negative Negative Urine Ketones Negative Negative Urine Protein Negative Negative Urine Leukocytes Negative Negative Urine Blood Negative Negative Urine Nitrite Negative Negative Urine Bilirubin Negative Negative Urine Glucose Negative Negative CBC Auto Diff 06/05/2016 White Blood Count 9.4 10^3/uL 3.5-10.8 Red Blood Count 5.27 10^6/uL 4.0-5.4 Hemoglobin 13.0 g/dL 12.0-16.0 Hematocrit 42 % 35-47 Mean Corpuscular Volume 80 fL 80-97 Mean Corpuscular Hemoglobin 25 pg Low 27-31 Mean Corpuscular HGB Conc 31 g/dL 31-36 Red Cell Distribution Width 18 % High 10.5-15 Platelet Count 294 10^3/uL 150-450 Mean Platelet Volume 8 um3 7.4-10.4 Abs Neutrophils 6.0 10^3/uL 1.5-7.7 Abs Lymphocytes 2.3 10^3/uL 1.0-4.8 Abs Monocytes 0.8 10^3/uL 0-0.8 Abs Eosinophils 0.2 10^3/uL 0-0.6 Abs Basophils 0.1 10^3/uL 0-0.2 Abs Nucleated RBC 0 10^3/uL Granulocyte % 64.4 % 38-83 Lymphocyte % 24.8 % Low 25-47 Monocyte % 8.3 % 1-9 Eosinophil % 1.9 % 0-6 Basophil % 0.6 % 0-2 Nucleated Red Blood Cells % 0.1 CBC Auto Diff 02/16/2016 White Blood Count 6.5 10^3/uL 3.5-10.8 Red Blood Count 4.99 10^6/uL 4.0-5.4 Hemoglobin 12.3 g/dL 12.0-16.0 Hematocrit 37 % 35-47 Mean Corpuscular Volume 75 fL Low 80-97 31 Mean Corpuscular Hemoglobin 25 pg Low 27-31 Mean Corpuscular HGB Conc 33 g/dL 31-36 Red Cell Distribution Width 17 % High 10.5-15 Platelet Count 382 10^3/uL 150-450 Mean Platelet Volume 9 um3 7.4-10.4 Abs Neutrophils 3.0 10^3/uL 1.5-7.7 Abs Lymphocytes 2.3 10^3/uL 1.0-4.8 Abs Monocytes 0.7 10^3/uL 0-0.8 Abs Eosinophils 0.4 10^3/uL 0-0.6 Abs Basophils 0 10^3/uL 0-0.2 Abs Nucleated RBC 0.01 10^3/uL Granulocyte % 46.3 % 38-83 Lymphocyte % 36.2 % 25-47 Monocyte % 10.4 % High 1-9 Eosinophil % 6.5 % High 0-6 Basophil % 0.6 % 0-2 Nucleated Red Blood Cells % 0.2 Comp Metabolic Panel 02/16/2016 Sodium 136 mmol/L 133-145 Potassium 4.3 mmol/L 3.5-5.0 Chloride 105 mmol/L 101-111 Co2 Carbon Dioxide 24 mmol/L 22-32 Anion Gap 7 mmol/L 2-11 Glucose 86 mg/dL 70-100 Blood Urea Nitrogen 9 mg/dL 6-24 Creatinine 0.55 mg/dL 0.51-0.95 BUN/Creatinine Ratio 16.4 8-20 Calcium 9.3 mg/dL 8.6-10.3 Total Protein 7.0 g/dL 6.4-8.9 Albumin 3.9 g/dL 3.2-5.2 Globulin 3.1 g/dL 2-4 Albumin/Globulin Ratio 1.3 1-3 Total Bilirubin 1.00 mg/dL 0.2-1.0 Alkaline Phosphatase 88 U/L 34-104 Alt 11 U/L 7-52 Ast 14 U/L 13-39 Egfr Non- 114.8 >60 Egfr 147.6 >60 32 CBC Auto Diff 11/17/2015 White Blood Count 5.7 10^3/uL 3.5-10.8 Red Blood Count 4.84 10^6/uL 4.0-5.4 Hemoglobin 11.8 g/dL Low 12.0-16.0 Hematocrit 36 % 35-47 Mean Corpuscular Volume 75 fL Low 80-97 Mean Corpuscular Hemoglobin 24 pg Low 27-31 Mean Corpuscular HGB Conc 33 g/dL 31-36 Red Cell Distribution Width 17 % High 10.5-15 Platelet Count 381 10^3/uL 150-450 Mean Platelet Volume 9 um3 7.4-10.4 Abs Neutrophils 2.7 10^3/uL 1.5-7.7 Abs Lymphocytes 2.1 10^3/uL 1.0-4.8 Abs Monocytes 0.6 10^3/uL 0-0.8 Abs Eosinophils 0.3 10^3/uL 0-0.6 Abs Basophils 0 10^3/uL 0-0.2 Abs Nucleated RBC 0 10^3/uL Granulocyte % 46.4 % 38-83 Lymphocyte % 37.6 % 25-47 Monocyte % 10.1 % High 1-9 Eosinophil % 5.3 % 0-6 Basophil % 0.6 % 0-2 Nucleated Red Blood Cells % 0 Comp Metabolic Panel 11/17/2015 Sodium 136 mmol/L 133-145 Potassium 4.0 mmol/L 3.5-5.0 Chloride 104 mmol/L 101-111 Co2 Carbon Dioxide 23 mmol/L 22-32 Anion Gap 9 mmol/L 2-11 Glucose 86 mg/dL 70-100 Blood Urea Nitrogen 9 mg/dL 6-24 Creatinine 0.51 mg/dL 0.51-0.95 BUN/Creatinine Ratio 17.6 8-20 Calcium 9.0 mg/dL 8.6-10.3 Total Protein 6.9 g/dL 6.4-8.9 Albumin 3.6 g/dL 3.2-5.2 Globulin 3.3 g/dL 2-4 Albumin/Globulin Ratio 1.1 1-3 Total Bilirubin 1.10 mg/dL High 0.2-1.0 Alkaline Phosphatase 88 U/L 34-104 Alt 11 U/L 7-52 Ast 12 U/L Low 13-39 Egfr Non- 125.2 >60 Egfr 161.0 >60 33 Laboratory test finding 11/17/2015 Lipase 28 U/L 11.0-82.0 Hemoglobin A1c (Glyco HGB) 5.6 % Less than 6.0 34 Iron & Iron Binding Capacity 11/17/2015 Iron 38 g/dL Low 50-212 Unsaturated Iron Binding 427 g/dL Total Iron Binding Capacity 465 g/dL High 250-450 % Iron Saturation 8 % Low 15-55 Laboratory test finding 07/01/2015 Cytology SEE RESULT BELOW 35 HPV Rna Ww/Reflex Genotype Negative Negative 36 Lipid Profile (Trig/Chol/HDL) 06/17/2015 Triglycerides 105 mg/dL 37 Cholesterol 174 mg/dL 38 HDL Cholesterol 61.3 mg/dL 39 LDL Cholesterol 92 mg/dL 40 Urine Microalbumin Random 06/17/2015 Ur Microalbumin (mg/L) 10.0 mg/L Urine Creatinine 185.73 mg/dL Urine Microalbumin/Creatinine 5.3 ug/mg <31 Comp Metabolic Panel 06/17/2015 Sodium 135 mmol/L 133-145 Potassium 4.3 mmol/L 3.5-5.0 Chloride 105 mmol/L 101-111 Co2 Carbon Dioxide 23 mmol/L 22-32 Anion Gap 7 mmol/L 2-11 Glucose 93 mg/dL 70-100 Creatinine 0.49 mg/dL Low 0.51-0.95 Calcium 9.1 mg/dL 8.6-10.3 Total Protein 6.8 g/dL 6.4-8.9 Albumin 3.9 g/dL 3.2-5.2 Globulin 2.9 g/dL 2-4 Albumin/Globulin Ratio 1.3 1-3 Total Bilirubin 0.90 mg/dL 0.2-1.0 Alkaline Phosphatase 91 U/L 34-104 Alt 10 U/L 7-52 Ast 12 U/L Low 13-39 Egfr Non- 131.1 >60 Egfr 168.6 >60 41 Blood Urea Nitrogen 12 mg/dL 6-24 BUN/Creatinine Ratio 24.5 High 8-20 Laboratory test finding 06/17/2015 Hemoglobin A1c (Glyco 6.0 % Less than 6.0 42 HGB) Vitamin B12 269 pg/mL 180-914 43 TSH (Thyroid Stim Horm) 1.61 ?IU/mL 0.34-5.60 44 Protein Electrophoresis 06/17/2015 Total Protein(Pep) 7.3 g/dL 6.3 - 7.9 Albumin 3.4 g/dL 3.4-4.7 Alpha-1 Globulin 0.3 g/dL 0.1-0.3 Alpha-2 Globulin 1.1 g/dL 0.6-1.0 Beta Globulin 1.1 g/dL 0.7-1.2 Gamma Globulin 1.5 g/dL 0.6-1.6 Albumin/Globulin Ratio 0.85 Impression See Comment 45 Laboratory test finding 12/16/2014 Hemoglobin A1c 5.8 5-7 Lipid Profile (Trig/Chol/HDL) 04/29/2014 Triglycerides 110 mg/dL 21, 46 Cholesterol 187 mg/dL 21, 47 HDL Cholesterol 70.7 mg/dL 21, 48 LDL Cholesterol 94 mg/dL 21, 49 Comp Metabolic Panel 04/29/2014 Sodium 136 mmol/L 133-145 21 Potassium 4.4 mmol/L 3.5-5.0 21 Chloride 104 mmol/L 101-111 21 Co2 Carbon Dioxide 23 mmol/L 22-32 21 Anion Gap 9 mmol/L 2-11 21 Glucose 99 mg/dL 70-100 21 Blood Urea Nitrogen 9 mg/dL 6-24 21 Creatinine 0.52 mg/dL 0.51-0.95 21 BUN/Creatinine Ratio 17.3 8-20 21 Calcium 9.5 mg/dL 8.6-10.3 21 Total Protein 7.2 g/dL 6.4-8.9 21 Albumin 4.0 g/dL 3.2-5.2 21 Globulin 3.2 g/dL 2-4 21 Albumin/Globulin Ratio 1.3 1-3 21 Total Bilirubin 1.20 mg/dL High 0.2-1.0 21 Alkaline Phosphatase 102 U/L 34-104 21 Alt 16 U/L 7-52 21 Ast 15 U/L 13-39 21 Egfr Non- 122.9 >60 21 Egfr 158.0 >60 21, 50 Laboratory test 04/29/2014 Hemoglobin A1c 6.2 % High Less than 21, 51 finding 6.0 Urine Microalbumin 04/29/2014 Ur Microalbumin 15.0 mg/L 21 Random (mg/L) Urine Creatinine 165.77 mg/dL 21 Urine Microalbumin/Creatinine 9.0 Less Than 31 21 Laboratory test finding 12/05/2013 Hemoglobin A1c 5.9 5-7 Urine Microalbumin Random 05/14/2013 Ur Microalbumin (mg/L) < 2 mg/L 52 Urine Creatinine 33.5 mg/dL Urine Microalbumin/Creatinine 6.0 Less Than 31 Lipid Profile (Trig/Chol/HDL) 05/09/2013 Triglycerides 112 mg/dL 40-200 Cholesterol 203 mg/dL High Less than 200 HDL Cholesterol 64 mg/dL High 40-60 53 Cholesterol/HDL Ratio 3.2 Average 1-4.44 LDL Cholesterol 116.6 High Less Than 100 54 Comp Metabolic Panel 05/09/2013 Sodium 136 mmol/L 133-145 Potassium 3.9 mmol/L 3.5-5.0 Chloride 104 mmol/L 101-111 Co2 Carbon Dioxide 24.0 mmol/L 22-32 Anion Gap 8.0 mmol/L 2-11 Glucose 96 mg/dL 70-100 Blood Urea Nitrogen 8 mg/dL 6-24 Creatinine 0.60 mg/dL 0.50-1.40 BUN/Creatinine Ratio 13.3 8-20 Calcium 9.3 mg/dL 8.1-9.9 Total Protein 7.1 g/dL 6.2-8.1 Albumin 3.7 g/dL 3.6-5.4 Globulin 3.4 g/dL 2-4 Albumin/Globulin Ratio 1.1 1-3 Total Bilirubin 1.2 mg/dL 0.4-1.5 Alkaline Phosphatase 83 U/L 30-110 Alt 19 U/L 14-54 Ast 19 U/L 12-42 Egfr Non- 104.6 >60 Egfr 134.5 >60 55 Laboratory test finding 05/09/2013 TSH (Thyroid Stimulating 1.40 miu/mL 0.34-5.60 Horm) Hemoglobin A1c 5.9 % Less than 6.0 56 Laboratory test finding 11/06/2012 Hemoglobin A1c 5.8 5-7 Laboratory test finding 05/07/2012 Hemoglobin A1c 5.9 5-7 Laboratory test finding 05/07/2012 Cytology RUN DATE: <SEE NOTE> Lipid Profile 01/16/2012 Triglycerides 100 mg/dL 40-200 (Trig/Chol/HDL) Cholesterol 184 mg/dL Less than 200 58 HDL Cholesterol 60 mg/dL 40-60 59 Cholesterol/HDL Ratio 3.1 AVERAGE 1-4.44 LDL Cholesterol 104.0 mg/dL High Less Than 100 Comp Metabolic Panel 01/16/2012 Sodium 137 mmol/L 133-145 Potassium 4.4 mmol/L 3.5-5.0 Chloride 107 mmol/L 101-111 Co2 Carbon Dioxide 24.0 mmol/L 22-32 Anion Gap 6.0 mmol/L 2-11 Glucose 100 mg/dL 70-100 Blood Urea Nitrogen 14 mg/dL 6-24 Creatinine 0.60 mg/dL 0.50-1.40 BUN/Creatinine Ratio 23.3 High 8-20 Calcium 9.2 mg/dL 8.1-9.9 Total Protein 7.2 GM/DL 6.2-8.1 Albumin 3.4 GM/DL Low 3.6-5.4 Globulin 3.8 GM/DL 2-4 Albumin/Globulin Ratio 0.9 Low 1-3 Total Bilirubin 1.1 mg/dL High 0.1-1.0 60 Alkaline Phosphatase 79 U/L 30-110 Alt 17 U/L 14-54 Ast 14 U/L 12-42 Egfr Non- 105.4 >60 Egfr 135.5 >60 61 Laboratory test 01/16/2012 TSH (Thyroid 1.34 MIU/ML 0.34-5.60 finding Stimulating Horm) Surgical Pathology 12/26/2011 Surgical Pathology 62 - <SEE NOTE> Laboratory test 11/28/2011 Hemoglobin A1c 5.9 5-7 finding Urine Microalbumin 11/28/2011 Microalbumin (MG/L) < 2 mg/L Random Urine Creatinine 58.8 mg/dL Alfonso Alb/Creatinine Ratio 3.4 UG/MG Less Than 30 63 CBC With Manual Diff 09/20/2011 White Blood Count 6.9 CUMM 4.8-10.8 Red Cell Count 4.63 CUMM 4.2-5.4 Hemoglobin 13.4 g/dL 12.0-16.0 Hematocrit 40 % 35-47 Mean Corpuscular Volume 85 um3 79-97 Mean Corpuscular Hemoglob 29 pg 27-31 Mean Corpuscular HGB Cone 34 g/dL 32-36 Redcell Distribution WDTH 15 % 10.5-15 Platelet Count 346 CUMM 150-450 Mean Platelet Volume 9.1 um3 7.4-10.4 Absolute Neutrophil Count 3.8 1.5-7.7 Polysegmented Neutrophil 53 % 38-83 Band Neutrophil 1 % 0-8 Lymphocyte 38 % 25-47 Monocyte 5 % 0-13 Eosinophil 2 % 0-6 Atypical Lymph 1 % 0-6 Anisocytosis SLIGHT Comp Metabolic Panel 09/20/2011 Sodium 136 mmol/L 135-145 Potassium 4.6 mmol/L 3.5-5.0 Chloride 104 mmol/L 101-111 Co2 (Carbon Dioxide) 26.0 mmol/L 22-32 Anion Gap 6.0 mmol/L 2-11 64 Glucose 88 mg/dL 70-100 BUN 9 mg/dL 6-24 Creatinine 0.5 mg/dL Low 0.50-1.40 One Over Creatinine 2.00 BUN/Creatinine Ratio 18.0 8-20 Calcium 9.5 mg/dL 8.1-9.9 Total Protein 7.3 GM/DL 6.2-8.1 Albumin 3.5 GM/DL Low 3.6-5.4 Globulin 3.8 GM/DL 2-4 Albumin/Globulin Ratio 0.9 Low 1-3 Bilirubin Total 1.0 mg/dL 0.4-1.5 65 Alkaline Phosphatase 88 U/L 30-110 Alt (SGPT) 17 U/L 14-54 Ast (Sgot) 17 U/L 12-42 eGFR Non- 130.1 > 60 eGFR 167.3 > 60 66 Laboratory test finding 07/18/2011 Hemoglobin A1c 5.9 % Less Than 6.0 67 CBC With Manual Diff 03/09/2011 White Blood Count 7.9 CUMM 4.8-10.8 Red Cell Count 4.74 CUMM 4.2-5.4 Hemoglobin 13.5 g/dL 12.0-16.0 Hematocrit 40 % 35-47 Mean Corpuscular Volume 85 um3 79-97 Mean Corpuscular Hemoglob 29 pg 27-31 Mean Corpuscular HGB Cone 34 g/dL 32-36 Redcell Distribution WDTH 15 % 10.5-15 Platelet Count 395 CUMM 150-450 Mean Platelet Volume 8.6 um3 7.4-10.4 Polysegmented Neutrophil 63 % 38-83 Band Neutrophil 1 % 0-8 Lymphocyte 22 % Low 25-47 Monocyte 9 % 0-13 Eosinophil 4 % 0-6 Atypical Lymph 1 % 0-6 Absolute Neutrophil Count 5.0 Anisocytosis SLIGHT Comp Metabolic Panel 03/09/2011 Sodium 135 mmol/L 135-145 Potassium 4.5 mmol/L 3.5-5.0 Chloride 101 mmol/L 101-111 Co2 (Carbon Dioxide) 24.0 mmol/L 22-32 Anion Gap 10.0 mmol/L 2-11 68 Glucose 94 mg/dL 70-100 BUN 7 mg/dL 6-24 Creatinine 0.6 mg/dL 0.50-1.40 One Over Creatinine 1.66 BUN/Creatinine Ratio 11.7 8-20 Calcium 9.4 mg/dL 8.1-9.9 Total Protein 6.5 GM/DL 6.2-8.1 Albumin 3.1 GM/DL Low 3.6-5.4 Globulin 3.4 GM/DL 2-4 Albumin/Globulin Ratio 0.9 Low 1-3 Bilirubin Total 0.8 mg/dL 0.4-1.5 69 Alkaline Phosphatase 87 U/L 30-110 Alt (SGPT) 22 U/L 14-54 Ast (Sgot) 21 U/L 12-42 eGFR Non- 105.8 > 60 eGFR 136.1 > 60 70 Laboratory test finding 03/09/2011 Hemoglobin A1c 5.9 % Less Than 6.0 71 Laboratory test finding 11/06/2010 Hemoglobin A1c 6.1 % High Less Than 6.0 72 1 FASTING 10 HOUR 2 Desirable: <150 Borderline High: 150-199 High: 200-499 Very High: >500 3 Desirable: <200 Borderline High: 200-239 High: >239 4 Low: <40 Desirable: 40-60 High: >60 5 Desirable: <100 Near Optimal: 100-129 Borderline High: 130-159 High: 160-189 Very High: >189 6 Because ethnic data is not always readily available, this report includes an eGFR for both -Americans and non- Americans. The National Kidney Disease Education Program (NKDEP) does not endorse the use of the MDRD equation for patients that are not between the ages of 18 and 70, are , have extremes of body size, muscle mass, or nutritional status, or are non- or non-. According to the National Kidney Foundation, irrespective of diagnosis, the stage of the disease is based on the level of kidney function: Stage Description GFR(mL/min/1.73 m(2)) 1 Kidney damage with normal or decreased GFR 90 2 Kidney damage with mild decrease in GFR 60-89 3 Moderate decrease in GFR 30-59 4 Severe decrease in GFR 15-29 5 Kidney failure <15 (or dialysis) 7 Therapeutic target for the treatment of diabetes mellitus patients is <7% HBA1C, and in selective patients <6.0%. Please refer to [place] [employer] Association diabetic care guidelines for further information. 8 Unable to calculate due to low microalbumin 9 [id number] 10 SEE RESULT BELOW Name: ODESSA ELIAS : [address]: Roberta Blackwood MD Acct: [id number] Unit: [id number] AGE: 57 Location: [facility] Re04/05/17 SEX: F Status: [facility] [place]C: [id number] ENRIQUE: 04/05/17-[address]: Roberta Blackwood MD REQ: [id number] RECD: 04/05/17 STATUS: SOUT _ ORDERED: Decal, LEVEL 3 COMMENTS: [id number] FINAL DIAGNOSIS Left trapezium, excision: -- Benign bone and cartilage with marked degenerative change. PRE-OPERATIVE DIAGNOSIS Left thumb carpometacarpal arthritis GROSS DESCRIPTION The specimen is received in formalin in one properly labeled container with the patient's name and accession number, designated "Left Trapezium" and consists of multiple romero-white bone fragments that in aggregate measure 3.0 x 1.0 x 0.8 cm. Honest [employer] Member sections, one cassette following decalcification. MICROSCOPIC DESCRIPTION Signed (signature on file) Zelda Cline MD 1315 END OF REPORT * ML=Testing performed at Main Lab DEPARTMENT OF PATHOLOGY, [address] [place] [address] Roddy Villanueva M.D. Director [facility] # [id number] 11 Integrative Medicine Physician: [id number] Normal Range 180 to 914 Indeterminate Range 145 to 180 Deficient Range <145 13 FASTING 10 HOUR DO THIS IN 3 MONTHS 14 FASTING 10 HOUR DO THIS IN 3 MONTHS 15 Desirable <150 Borderline high 150-199 High 200-499 Very High >500 16 Desirable <200 Borderline high 200-239 High >239 17 Low <40 Desirable: 40-60 High: >60 18 Desirable: <100 mg/dL Near Optimal: 100-129 mg/dL Borderline High: 130-159 mg/dL High: 160-189 mg/dL Very High: >189 mg/dL 19 [facility] Severe Sepsis and Septic Shock Management Bundle Measure requires all lactic acids initially measuring >2.0 mmol/L be repeated. 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 -- Acute serositis. -- Margins of resection viable. PRE-OPERATIVE DIAGNOSIS Severe inflammatory response syndrome second to shortness of breath GROSS DESCRIPTION The specimen is received in formalin labeled, Small Bowel Meckel's, and consists of a 41.4 cm length of small bowel with moderate attached yellow-pink fat. The external diameter ranges from 2.5 cm at one margin (arbitrarily designated margin A) to 4.0 cm at the opposing (margin B). There is a 9.6 by up to 4.5 x 2.9 cm dusky brown-strauss diverticulum 12.3 cm from margin A. The remaining serosa is smooth to shaggy romero-strauss with a few focal fibromembranous adhesions, a small amount of adherent yellow fat and mild fibropurulent exudate associated with the diverticulum and margin A. The margin of the diverticulum is markedly dusky brown-strauss. The proximal diverticulum is dilated with a circumference of 5.5 cm and is divided from the distal diverticulum by a 0.2 cm portion of tissue. The mucosa of the diverticulum is dusky brown red, smooth to granular and markedly necrotic. The remaining mucosa is slightly edematous romero with normal folds. [employer]est [employer] Member sections are submitted in cassettes A through G as follows: A-margins to include inked margin A, B-diverticulum margin, C-proximal diverticulum, D-tissue between proximal and distal, E and F-distal diverticulum and G-mucosa. Signed (signature on file) Zelda Cline MD 1550 END OF REPORT * ML=Testing performed at Main Lab DEPARTMENT OF PATHOLOGY, [address] [place] [address] Roddy Villanueva M.D. Director [facility] # [id number] 21 PT IS FASTING 22 Desirable <150 Borderline high 150-199 High 200-499 Very High >500 23 Desirable <200 Borderline high 200-239 High >239 24 Low <40 Desirable: 40-60 High: >60 25 Desirable: <100 mg/dL Near Optimal: 100-129 mg/dL Borderline High: 130-159 mg/dL High: 160-189 mg/dL Very High: >189 mg/dL 26 Therapeutic target for the treatment of diabetes Mellitus patients is <7% HBA1C, and in selective patients <6.0%.Please refer to [place] [employer] Diabetic care guidelines for further information. 27 Unable to calculate due to low microalbumin 28 Because ethnic data is not always readily available, this report includes an eGFR for both -Americans and non- Americans. The National Kidney Disease Education Program (NKDEP) does not endorse the use of the MDRD equation for patients that are not between the ages of 18 and 70, are , have extremes of body size, muscle mass, or nutritional status, or are non- or non-. According to the National Kidney Foundation, irrespective of diagnosis, the stage of the disease is based on the level of kidney function: Stage Description GFR(mL/min/1.73 m(2)) 1 Kidney damage with normal or decreased GFR 90 2 Kidney damage with mild decrease in GFR 60-89 3 Moderate decrease in GFR 30-59 4 Severe decrease in GFR 15-29 5 Kidney failure <15 (or dialysis) 29 Verbal to [id number] by [id number] at 1322 on 06/05/16. PATIENT HAS BEEN DISCHARGED. NO RECOLLECTION NECESSARY. 30 [facility] Severe Sepsis and Septic Shock Management Bundle Measure requires all lactic acids initially measuring >2.0 mmol/L be repeated. 31 Consistent with previous results on 11/17/15. 32 Because ethnic data is not always readily available, this report includes an eGFR for both -Americans and non- Americans. The National Kidney Disease Education Program (NKDEP) does not endorse the use of the MDRD equation for patients that are not between the ages of 18 and 70, are , have extremes of body size, muscle mass, or nutritional status, or are non- or non-. According to the National Kidney Foundation, irrespective of diagnosis, the stage of the disease is based on the level of kidney function: Stage Description GFR(mL/min/1.73 m(2)) 1 Kidney damage with normal or decreased GFR 90 2 Kidney damage with mild decrease in GFR 60-89 3 Moderate decrease in GFR 30-59 4 Severe decrease in GFR 15-29 5 Kidney failure <15 (or dialysis) 33 Because ethnic data is not always readily available, this report includes an eGFR for both -Americans and non- Americans. The National Kidney Disease Education Program (NKDEP) does not endorse the use of the MDRD equation for patients that are not between the ages of 18 and 70, are , have extremes of body size, muscle mass, or nutritional status, or are non- or non-. According to the National Kidney Foundation, irrespective of diagnosis, the stage of the disease is based on the level of kidney function: Stage Description GFR(mL/min/1.73 m(2)) 1 Kidney damage with normal or decreased GFR 90 2 Kidney damage with mild decrease in GFR 60-89 3 Moderate decrease in GFR 30-59 4 Severe decrease in GFR 15-29 5 Kidney failure <15 (or dialysis) 34 Therapeutic target for the treatment of diabetes Mellitus patients is <7% HBA1C, and in selective patients <6.0%.Please refer to [place] [employer] Association Diabetic care guidelines for further information. 35 SEE RESULT BELOW Name: ODESSA ELIAS Prasanth : [address]: Criss Lau MD Acct: [id number] Unit: [id number] AGE: 55 Location: [facility] Re07/01/15 SEX: F Status: REG REF SPEC: [id number] ENRIQUE: 07/01/15-[address]: Criss Lau MD REQ: [id number] RECD: 07/04/158204 STATUS: SOUT _ ORDERED: IMAGE ANALYSIS, HPV/Thin Prep, HPV 16/18 GENE FINAL DIAGNOSIS Negative for Intraepithelial lesion or Malignancy A. Ectocervical/Endocervical Specimen Adequacy: Satisfactory of evaluation Transformation zone component identified Patient Information: HPV: High risk HPV RNA testing regardless of pap results. HPV 16/18 Genotype for HPV pos Actual Specimen Date: 07/01/15 LMP If Unknown: 3-4 yrs ago Spec Date if unknown: 2011 ?: N Post Menopausal?: Y Hysterectomy?: N Date Time Test Result Flag (u) Normal Range 07/01/15 1530 HPV RNA RFLX GE Negative Negative The high-risk HPV types detected by the assay include: 16, 18, 31, 33, 35, 39, 45, 51, 52, 56, 58, 59, 66, and 68. Signed (signature on file) VANESSA Carbajal(ASCP) 07/04 9903 This Pap test was evaluated with the assistance of the [employer] Test Imaging System. Due to cytologic findings at the dental assistant teacher microscope, comprehensive manual rescreening by a Crab Steamer may be required. The Pap Smear is a screening test designed to aid in the detection of premalignant and malignant conditions of the uterine cervix. It is not a diagnostic procedure and should not be used as the sole means of detecting cervical cancer. Both false- positive and false- negative reports do occur. Depending on your risk status, a Pap smear should be obtained and evaluated every 1-3 years. END OF REPORT * ML=Testing performed at Main Lab DEPARTMENT OF PATHOLOGY, [address] [place] [address] Roddy Villanueva M.D. Director [facility] # [id number] 36 The high-risk HPV types detected by the assay include: 16, 18, 31, 33, 35, 39, 45, 51, 52, 56, 58, 59, 66, and 68. 37 Desirable <150 Borderline high 150-199 High 200-499 Very High >500 38 Desirable <200 Borderline high 200-239 High >239 39 Low <40 Desirable: 40-60 High: >60 40 Desirable: <100 mg/dL Near Optimal: 100-129 mg/dL Borderline High: 130-159 mg/dL High: 160-189 mg/dL Very High: >189 mg/dL 41 Because ethnic data is not always readily available, this report includes an eGFR for both -Americans and non- Americans. The National Kidney Disease Education Program (NKDEP) does not endorse the use of the MDRD equation for patients that are not between the ages of 18 and 70, are , have extremes of body size, muscle mass, or nutritional status, or are non- or non-. According to the National Kidney Foundation, irrespective of diagnosis, the stage of the disease is based on the level of kidney function: Stage Description GFR(mL/min/1.73 m(2)) 1 Kidney damage with normal or decreased GFR 90 2 Kidney damage with mild decrease in GFR 60-89 3 Moderate decrease in GFR 30-59 4 Severe decrease in GFR 15-29 5 Kidney failure <15 (or dialysis) 42 Therapeutic target for the treatment of diabetes Mellitus patients is <7% HBA1C, and in selective patients <6.0%.Please refer to [place] [employer] Association Diabetic care guidelines for further information. 43 Normal Range 180 to 914 Indeterminate Range 145 to 180 Deficient Range <145 44 FASTING 12 HOUR Do in April RESULT: No apparent monoclonal protein on serum electrophoresis. Test Performed by: [address] [address] Account Adjuster: Nino Noland II, M.D., Ph.D. 46 Desirable <150 Borderline high 150-199 High 200-499 Very High >500 47 Desirable <200 Borderline high 200-239 High >239 48 Low <40 Desirable: 40-60 High: >60 49 Desirable <100 Near Optimal 100-129 Borderline high 130-159 High 160-189 Very High >189 50 Because ethnic data is not always readily available, this report includes an eGFR for both -Americans and non- Americans. The National Kidney Disease Education Program (NKDEP) does not endorse the use of the MDRD equation for patients that are not between the ages of 18 and 70, are , have extremes of body size, muscle mass, or nutritional status, or are non- or non-. According to the National Kidney Foundation, irrespective of diagnosis, the stage of the disease is based on the level of kidney function: Stage Description GFR(mL/min/1.73 m(2)) 1 Kidney damage with normal or decreased GFR 90 2 Kidney damage with mild decrease in GFR 60-89 3 Moderate decrease in GFR 30-59 4 Severe decrease in GFR 15-29 5 Kidney failure <15 (or dialysis) 51 Therapeutic target for the treatment of diabetes Mellitus patients is <7% HBA1C, and in selective patients <6.0%.Please refer to [place] [employer] Diabetic care guidelines for further information. 52 Microalbuminuria in a random sample is defined as: Microalbumin/Creatinine ratio of 30-299 ug/mg. 53 HDL Interpretation: Undesirable: High Risk: Less than 40 mg/dL Desirable: Low Risk: Greater than 60 mg/dL 54 LDL Interpretation: Low Risk Optimal Level: LDL Less than 100 mg/dL Near or Above Optimal: LDL 100-129 mg/dL Borderline High Risk: LDL 130-159 mg/dL High Risk: LDL 160-189 mg/dL Very High Risk: LDL Greater than 189 mg/dL 55 Because ethnic data is not always readily available, this report includes an eGFR for both -Americans and non- Americans. The National Kidney Disease Education Program (NKDEP) does not endorse the use of the MDRD equation for patients that are not between the ages of 18 and 70, are , have extremes of body size, muscle mass, or nutritional status, or are non- or non-. According to the National Kidney Foundation, irrespective of diagnosis, the stage of the disease is based on the level of kidney function: Stage Description GFR(mL/min/1.73 m(2)) 1 Kidney damage with normal or decreased GFR 90 2 Kidney damage with mild decrease in GFR 60-89 3 Moderate decrease in GFR 30-59 4 Severe decrease in GFR 15-29 5 Kidney failure <15 (or dialysis) 56 Therapeutic target for the treatment of diabetes Mellitus patients is <7% HBA1C, and in selective patients <6.0%.Please refer to [place] [employer] Association Diabetic care guidelines for further information. 57 RUN DATE: 05/08/12 [facility] LAB LIVE PAGE 1 RUN TIME: [address], [place] [address] Specimen Inquiry Name: ODESSA ELIAS : [address]: Felicity Negrete MD Acct: [id number] Unit: [id number] AGE: 52 Location: [facility] Re05/07/12 SEX: F Status: REG REF SPEC: [id number] ENRIQUE: 05/07/12-1144 [facility] DR: Felicity Negrete MD REQ: [id number] RECD: 05/07/12 STATUS: SOUT _ ORDERED: IMAGE ANALYSIS FINAL DIAGNOSIS Negative for Intraepithelial lesion or Malignancy A. Ectocervical/Endocervical Specimen Adequacy: Satisfactory of evaluation Transformation zone component identified Patient Information: HPV: Thin Layer Pap Test w/reflex to high risk HPV DNA testing when ASCUS Actual Specimen Date: 05/07/12 Last Menstrual Date: 04/18/12 Spec Date if unknown: Unknown Cautery: N IUD: N Lesion, grossly demonstrate: N ?: N Post Menopausal?: N Hysterectomy?: N Previous Abnormal Pap Smears?:N Signed (signature on file) VANESSA Diallo (ASCP) 05/08/12 1043 This Pap test was evaluated with the assistance of the [employer] [employer] Imaging System. Due to cytologic findings at the dental assistant teacher microscope, comprehensive manual rescreening by a Crab Steamer may be required. The Pap Smear is a screening test designed to aid in the detection of premalignant and malignant conditions of the uterine cervix. It is not a diagnostic procedure and should not be used as the sole means of detecting cervical cancer. Both false- positive and false- negative reports do occur. Depending on your risk status, a Pap smear shoudl be obtained and evaluated every 1-3 years. END OF REPORT * ML=Testing performed at Main Lab DEPARTMENT OF PATHOLOGY, [address] [place] [address] Roddy Villanueva M.D. Director [facility] Permit #[id number] 58 Desirable: Less than 200 MG/DL Borderline-High Risk: 200-239 MG/DL High-Risk: 240 MG/DL and over 59 HDL Interpretation: Undesirable: High Risk: Less than 40 MG/DL Desirable: Low Risk: Greater than 60 MG/DL 60 A metabolite of Naproxen, O-desmethylnaproxen, has been shown to interfere with the Jendrassik-D[employer] method for measuring total bilirubin. Samples from patients who have taken Naproxen have shown spurious elevation in total bilirubin levels. 61 Because ethnic data is not always readily available, this report includes an eGFR for both -Americans and non- Americans. The National Kidney Disease Education Program (NKDEP) does not endorse the use of the MDRD equation for patients that are not between the ages of 18 and 70, are , have extremes of body size, muscle mass, or nutritional status, or are non- or non-. According to the National Kidney Foundation, irrespective of diagnosis, the stage of the disease is based on the level of kidney function: Stage Description GFR(mL/min/1.73 m(2)) 1 Kidney damage with normal or decreased GFR 90 2 Kidney damage with mild decrease in GFR 60-89 3 Moderate decrease in GFR 30-59 4 Severe decrease in GFR 15-29 5 Kidney failure <15 (or dialysis) 62 ---- RUN DATE: 12/27/11 [facility] NMI LIVE PAGE 1 RUN TIME: 1119 Specimen Inquiry RUN USER: INTERFACE -- Name: ODESSA ELIAS Status: REG REF Re12/26/11 Age/Sex: 51/F Unit#: [id number] Location: [address] [place] [address]. : 60 -- Specimen: [id number] SOUT Spec Date:12/26/11- Subm Dr: Isamar Villarreal MD Spec Type: SURGICAL P Received:12/26/11-1322 Copies to: Felicity Negrete MD SPECIMEN STEREOTACTIC BREAST BIOPSY HISTORY PRE-OP DIAGNOSIS: Indeterminant calcifications GROSS DESCRIPTION The specimen is received in formalin labelled Odessa PrasanthTroy Elias, Stereotactic Breast Biopsy, Left Breast Calcifications, and consists of multiple romero-pink yellow and focally hemorrhagic soft tissue fragments measuring 2.7 x 2.5 x 0.4 cm. in aggregate. Submitted entirely, one cassette. DIAGNOSIS Breast, left, stereotactic core biopsy: A. Benign breast tissue with non-proliferative fibrocystic change and associated microcalcification. B. No evidence of neoplasia identified. Signed Electronically by: RODDY VILLANUEVA MD 12/27/11 1118 -- -- DEPARTMENT OF PATHOLOGY, [address] [place] [address] [facility] Permit #[id number] Roddy Villanueva M.D. Director Srikanth Adamson M.D. Yoker Machine Operator Dir yaz -- 63 MICROALBUMINURIA IN A RANDOM SAMPLE IS DEFINED : MICROALBUMIN/CREATININE RATIO OF 30-299 ug/mg. . 64 Anion gap measurement may be of limited value in the presence of any alkalosis, especially in a combined acid base disorder. . 65 A metabolite of Naproxen, O-desmethylnaproxen, has been shown to interfere with the Jendrassik-Altaf method for measuring total bilirubin. Samples from patients who have taken Naproxen have shown spurious elevation in total bilirubin levels. 66 Because ethnic data is not always readily available, this report includes an eGFR for both -Americans and non- Americans. The National Kidney Disease Education Program (NKDEP) does not endorse the use of the MDRD equation for patients that are not between the ages of 18 and 70, are , have extremes of body size, muscle mass, or nutritional status, or are non- or non-. According to the National Kidney Foundation, irrespective of diagnosis, the stage of the disease is based on the level of kidney function: Stage Description GFR(mL/min/1.73 m(2)) 1 Kidney damage with normal or decreased GFR 90 2 Kidney damage with mild decrease in GFR 60-89 3 Moderate decrease in GFR 30-59 4 Severe decrease in GFR 15-29 5 Kidney failure <15 (or dialysis) 67 THERAPEUTIC TARGET FOR THE TREATMENT OF DIABETES MELLITUS PATIENTS IS <7% HBA1C, AND IN SELECTIVE PATIENTS <6.0%. PLEASE REFER TO [place] [employer] DIABETIC CARE GUIDELINES FOR FURTHER INFORMATION. 68 Anion gap measurement may be of limited value in the presence of any alkalosis, especially in a combined acid base disorder. . 69 A metabolite of Naproxen, O-desmethylnaproxen, has been shown to interfere with the Jendrassik-[employer] method for measuring total bilirubin. Samples from patients who have taken Naproxen have shown spurious elevation in total bilirubin levels. 70 Because ethnic data is not always readily available, this report includes an eGFR for both -Americans and non- Americans. The National Kidney Disease Education Program (NKDEP) does not endorse the use of the MDRD equation for patients that are not between the ages of 18 and 70, are , have extremes of body size, muscle mass, or nutritional status, or are non- or non-. According to the National Kidney Foundation, irrespective of diagnosis, the stage of the disease is based on the level of kidney function: Stage Description GFR(mL/min/1.73 m(2)) 1 Kidney damage with normal or decreased GFR 90 2 Kidney damage with mild decrease in GFR 60-89 3 Moderate decrease in GFR 30-59 4 Severe decrease in GFR 15-29 5 Kidney failure <15 (or dialysis) 71 THERAPEUTIC TARGET FOR THE TREATMENT OF DIABETES MELLITUS PATIENTS IS <7% HBA1C, AND IN SELECTIVE PATIENTS <6.0%. PLEASE REFER TO [place] [employer] DIABETIC CARE GUIDELINES FOR FURTHER INFORMATION. 72 THERAPEUTIC TARGET FOR THE TREATMENT OF DIABETES MELLITUS PATIENTS IS <7% HBA1C, AND IN SELECTIVE PATIENTS <6.0%. PLEASE REFER TO [place] [employer] DIABETIC CARE GUIDELINES FOR FURTHER INFORMATION. Procedures Date CPT Code Description Status 09/26/2017 Diabetic Retinal Eye Exam Completed 09/12/2017 51757 Pulmonary Function><Bronchodil Completed 09/12/2017 71177 Diffusing Capacity Completed 09/12/2017 07519 Plethysmography Determination Lung Volumes & Per Airway Completed Resist 04/05/2017 76058 Dequervains-Tendon Sheath Incision/Extensor Completed Sheath,Wrist 04/05/2017 29044 Arthroplasty Interposition Intercarpal Or Completed Carpometacarpal JTS 04/05/2017 70189 Arthroplasty Interposition Intercarpal Or Completed Carpometacarpal JTS 03/20/201745434 Injection Single Tendon Origin/Insertion Completed 03/15/2017 Diabetic Retinal Eye Exam Completed 12/07/2016 Mammogram Completed 09/07/2016 Diabetic Retinal Eye Exam Completed 07/11/2016 78270 Enterectomy Resect Small Intestine W/Anastomosis Completed (Single Resect) 07/11/2016 94083 Enterectomy Resect Small Intestine W/Anastomosis Completed (Single Resect) 05/21/201655978 Injection Single Tendon Origin/Insertion Completed 02/25/2016 61054 Holter Monitor Review (24 hr)dr review & interp only Completed 02/23/2016 88462 ECG Monitor/Recording W/Visual Superimposition Scanning Completed 02/16/2016 55506 EKG Tracing & Interpretation Completed 12/02/2015 Mammogram Completed 11/19/2014 Mammogram Completed 07/29/2014 Inject/Drain Joint/Bursa Small W/O US Completed 07/07/2014 48314 ECHO Stress Test Incl Perf Contiuous ekg Monitoring Completed W/Phys Superv 06/28/2014 Diabetic Retinal Eye Exam Completed 05/27/2014 61016 Diffusing Capacity Completed 05/27/2014 77014 Plethysmography Determination Lung Volumes & Per Airway Completed Resist 05/27/2014 73884 Pulmonary Function><Bronchodil Completed 05/20/2014 57533 EKG Tracing & Interpretation Completed 11/20/2013 Mammogram Completed 11/12/2013 63034 Noninvasive Ear Or Pulse Oximetry For Oxygen Saturation Completed 09/09/2013 Diabetic Retinal Eye Exam Completed 07/31/2013 15541 Xray Knee 3 Views Completed 07/31/2013 72300 Xray Knee 3 Views Completed 06/09/2013 45162 Trigger Finger Release Incision / Tendon Sheath Completed Incision 11/13/2012 Mammogram Completed 08/20/2012 Diabetic Retinal Eye Exam Completed 05/15/2012 Mammogram Completed 05/07/2012 82375 EKG Tracing & Interpretation Completed 12/26/2011 Mammogram Completed 12/13/2011 Mammogram Completed 08/31/2010 Colonoscopy Completed 12/08/2009 92494 EKG Tracing & Interpretation Completed 12/23/2007 34758 EKG Tracing & Interpretation Completed 12/23/2007 82829 EKG Tracing & Interpretation Completed 11/13/2007 Mammogram Completed 05/14/2007 Mammogram Completed 10/18/2006 Mammogram Completed 10/11/2006 13001 EKG Tracing & Interpretation Completed 05/07/2003 Mammogram Completed Encounters Type Date Location Provider CPT E/M Dx Office Visit 08/27/2017 [facility] Criss Lau, 74345 R05 11:20a - Beba Santos Office Visit 08/14/2017 [facility] Donald Alvarado, 26908 G43.009 10:00a Services Of Marty M.D. Office Visit 07/04/2017 [facility] Medicine Criss Lau, 28229 E11.42 8:40a - Beba Santos I10 G43.009 Office Visit 03/20/2017 9:30a [facility] Robertahoward Blackwood, 32924 M77.11 Of Angel Luis Santos M18.12 M65.4 Office Visit 02/11/2017 9:00a [facility] Medicine Criss Lau 17462 R26.81 - Beba Santos Office Visit 01/11/2017 8:40a [facility] Medicine Criss Lau, 87778 E11.42 - Beba Santos I10 R26.81 Office Visit 12/19/2016 3:00p [facility] [place] [address] R42 - Beba Office Visit 08/22/2016 2:40p [facility] Anni Vieira 40597 R10.30 - Houstonia N.P. Office Visit 08/10/2016 9:00a [facility] [place] [address] I10 - Beba Office Visit 08/02/2016 9:45a [facility] Cherelle Francis, 94473 G43.009 Services Of Shale Miner Blasting M.D. Office Visit 07/17/2016 12:55p [facility] [place] [address] K56.69 Assoc, Hospitalists G31.84 Q43.0 E11.42 Office Visit 07/16/2016 12:54p [facility] [place] [address] K56.69 Assoc, Hospitalists Tom G31.84 Q43.0 E11.42 Office Visit 07/15/2016 12:54p [facility] [place] [address] K56.69 Assoc, Hospitalists Tom G31.84 Q43.0 E11.42 Office Visit 07/14/2016 12:53p [facility] Danitza Lo, 12586 K56.69 Assoc,pc Hospitalists M.DTroy G31.84 Q43.0 E11.42 Office Visit 07/13/2016 12:53p [facility] Danitza Lo, 64950 K56.69 Assoc,pc Hospitalists M.DTroy Q43.0 G31.84 E11.42 Office Visit 07/12/2016 12:52p [facility] Danitza Lo, 38953 K56.69 Assoc,pc Hospitalists M.DTroy G31.84 Q43.0 E11.42 Office Visit 07/11/2016 12:50p [facility] [place], [address] K56.69 Assoc,pc Hospitalists M.DTroy G31.84 E11.42 R65.10 Office Visit 07/11/2016 7:00a [facility] [place], [address] K56.69 Of [facility] FACS Office Visit 07/06/2016 11:00a [facility] Medicine Criss Lau 93945 Z00.00 - Beba Santos E11.9 E78.5 I10 Z12.31 J06.9 Office Visit 07/02/2016 8:15a [facility] Roberta Blackwood 53318 M77.11 Of Angel Luis Santos M77.01 Office Visit 03/19/2016 9:00a [facility] Criss Lau 14229 F43.20 - Beba Santos S90.111A Office Visit 02/16/2016 8:00a [facility] Criss Lau M.D. 91185 Z23 - Beba R42 R00.2 F43.20 Z87.891 Office Visit 12/09/2015 10:00a [facility] Criss Lau 08657 R10.13 - Beba Santos E11.9 E78.5 Office Visit 11/17/2015 9:00a [facility] Criss Lau 01121 R10.13 - Beba Santos E11.9 Office Visit 10/13/2015 1:00p [facility] Shayla Meza 89255 G56.21 Of C.Fritz RPA-C Office Visit 08/25/2015 9:15a [facility] Roberta Blackwood 60586 G56.21 Of C.Fritz Mancilla.Danny Office Visit 08/04/2015 1:20p [facility] Roberta Blackwood 34235 G56.21 Of C.MBharti M.DTroy Office Visit 08/04/2015 8:30a [facility] Cherelle Francis, 06882 G43.009 Services Of Shale Miner Blasting M.D. Office Visit 07/01/2015 2:40p [facility] Criss Lau 58874 Z01.419 - Beba Mancilla.Danny E11.40 Office Visit 04/22/2015 1:00p [facility] Criss Lau 16430 E11.42 - Beba Mancilla.Danny F43.20 Office Visit 02/25/2015 1:00p [facility] Criss Lau 39460 E11.40 - Beba Mancilla.Danny G62.9 E11.42 Office Visit 01/27/2015 8:30a [facility] Cherelle Francis, 06360 G43.009 Services Of Marty M.Danny R06.02 Office Visit 01/20/2015 8:50a [facility] Roberta Blackwood, 08714 M18.11 Of C.Fritz Santos Office Visit 01/03/2015 9:20a [facility] Shayla Meza 50745 M18.11 Of C.Fritz RPA-C Office Visit 12/16/2014 9:40a [facility] Criss Lau 82050 250.00 - Beba Santos 726.19 401.1 786.05 719.41 Office Visit 07/29/2014 4:00p [facility] Roberta Blackwood 96155 715.14 Of C.Fritz Santos Office Visit 07/15/2014 11:30a [facility] Cherelle Francis, 93568 346.10 Services Of Shale Miner Blasting M.DTroy 786.05 Office Visit 07/15/2014 10:00a [facility] Anni Vieira, N.PTroy 59178 786.05 - Houstonia 278.00 V85.35 Office Visit 05/20/2014 11:00a [facility] Medicine [facility], 59302 250.00 - [place]ia M.D. 401.1 786.09 Office Visit 12/25/2013 11:40a [facility] 65554 401.1 - [place] M.D. 786.2 Office Visit 12/04/2013 11:00a [facility], 07896 786.2 - [place]ia M.D. 401.1 Office Visit 11/12/2013 8:30a [facility] Cherelle Francis, 56556 346.10 Services Of [facility] M.D. Office Visit 11/12/2013 10:00a [facility] Medicine Criss Sid, 06876 250.00 - [place] M.DTroy V76.10 786.2 Office Visit 11/02/2013 9:45a [facility] Funmi Kyle M.D. 42943 715.96 Of C.M.A. Office Visit 08/31/2013 9:15a [facility] Funmi Kyle M.D. 09495 715.96 Of C.M.A. Office Visit 07/31/2013 2:00p [facility] Funmi Kyle M.D. 24854 715.96 Of C.M.A. Office Visit 06/04/2013 3:30p [facility] Roberta Blackwood 22079 727.03 Of C.M.ATroy MTroyDTroy Office Visit 05/15/2013 8:30a [facility] Cherelle Francis, 79509 346.10 Services Of Shale [employer]er Blasting M.D. Office Visit 05/14/2013 9:00a [facility] Felicity Negrete M.D., 61469 250.00 - [place] FACP 272.0 Office Visit 02/26/2013 2:15p [facility] Roberta Blackwood 69340 723.4 Of C.M.Parag M.D. Office Visit 01/08/2013 10:30a [facility] Robetra Blackwood 08521 723.4 Of C.M.ATroy M.D. Office Visit 11/07/2012 11:45a [facility] Cherelle Francis, 88104 346.90 Services Of Shale Miner Blasting M.D. Office Visit 11/06/2012 9:00a [facility] Felicity Negrete M.D., 80156 250.00 - [place] FACP 305.1 V76.10 Office Visit 05/07/2012 10:40a [facility] - Felicity Negrete M.D., 13277 V70.0 [place]ia FACP V76.10 250.00 401.1 311 272.0 305.1 V72.31 Office Visit 03/13/2012 8:30a [facility] Cherelle Francis, 49358 346.90 Services Of Shale Miner Blasting M.D. Office Visit 11/28/2011 9:00a [facility] Felicity Negrete M.D., 99174 250.00 - [place] FACP 305.1 311 V76.10 V03.82 Office Visit 07/25/2011 9:00a [facility] Felicity Negrete M.D., 88071 250.00 - [place] FACP Office Visit 03/21/2011 9:00a DO Not Use Felicity Negrete M.D., 22005 v04.81 [employer]-[place] FACP 250.00 786.2 Office Visit 11/16/2010 9:00a DO Not Use [employer]-[place] Felicity Negrete, 95534 250.00 M.D., FACP Office Visit 07/13/2010 9:00a DO Not Use [employer]-[place] Felicity Negrete 30469 250.00 M.D., FACP 401.1 V76.41 Office Visit 01/17/2010 9:30a DO Not Use [employer]-[place] Felicity Negrete 29994 786.09 M.D., FACP Office Visit 12/08/2009 9:30a DO Not Use [employer]-[place] Felicity Negrete 76171 786.50 M.D., FACP 786.09 530.81 311 Office Visit 11/03/2009 9:00a DO Not Use [employer]-[place] Felicity Negrete 36215 250.00 M.D., FACP Office Visit 05/05/2009 9:00a DO Not Use [employer]-[place] Felicity Penelope, 85711 250.00 M.D., FACP Office Visit 10/28/2008 9:00a DO Not Use [employer]-[place] Felicity Penelope, 62256 250.00 M.D., FACP Office Visit 04/29/2008 9:00a DO Not Use [employer]-[place] Felicity Penelope, 98566 250.00 M.D., FACP Office Visit 12/23/2007 2:00p DO Not Use [employer]-[place] Felicity Penelope, 39462 V70.0 M.D., FACP V76.2 250.00 272.0 401.1 Office Visit 10/23/2007 10:30a DO Not Use [employer]-[place] Felicity Penelope, 44364 250.00 M.D., FACP Office Visit 04/17/2007 10:45a DO Not Use [employer]-[place] Felicity Penelope, 52938 250.00 M.D., FACP 401.1 Office Visit 03/13/2007 9:00a DO Not Use [employer]-[place] Felicity Penelope, 78600 401.1 M.D., FACP V04.81 Office Visit 10/11/2006 9:15a DO Not Use [employer]-[place] Felicity Penelope, 75964 250.00 M.D., FACP V70.0 272.0 Office Visit 08/23/2006 9:00a DO Not Use [employer]-[place] Felicity Penelope, 54862 250.00 M.D., FACP 272.0 Office Visit 04/23/2006 12:00p DO Not Use [employer]-[place] Felicity Penelope, 12910 780.79 M.D., FACP Office Visit 02/22/2006 2:15p DO Not Use [employer]-[place] Felicity Penelope, 48257 250.00 M.D., FACP V04.81 Plan of Care Future Appointment(s):01/17/2018 9:00 am - Criss Lau M.D. at [facility] Internal Medicine - Glcanmyay83/15/2018 - Roberta Blackwood M.D.G56.01 Carpal tunnel syndrome, right upper limbFollow up:Follow up: As zushwsM54.02 Carpal tunnel syndrome, left upper limbFollow up:rhfwfpX81.042 Primary osteoarthritis, left handM19.041 Primary osteoarthritis, right hand
[2017-11-28] MEDS ORDERED: NS 0.9% 1000 ML* 1,000 ML IV ONE (15:48)
--- NOTE | 2017-11-28 16:52 | RAD ---
INDICATION: Left flank pain COMPARISON: CT August 28, 2016 TECHNIQUE: Noncontrast axial source images were acquired from the level hemidiaphragms to the symphysis pubis as part of CT imaging for renal stone. Lung bases: There is minimal right basilar scarring or atelectasis. Liver: The liver is normal in size. Noncontrast imaging shows no evidence of a hepatic mass or ductal dilatation. Gallbladder: Cholecystectomy. Spleen: The spleen is normal in size. The noncontrast CT appearance is normal. Pancreas: Noncontrast imaging shows no pancreatic mass or ductal dilitation. Adrenal glands: No masses are identified. Kidneys/Bladder: There is no evidence of nephrolithiasis or CT evidence of hydronephrosis. Noncontrast imaging shows no evidence of a renal mass. The bladder is unremarkable.. Adenopathy: There is no evidence of intraperitoneal or retroperitoneal adenopathy. Evaluation is limited without oral contrast. Fluid collections: There are no free or localized fluid collections. Vessels: The aorta and iliac vessels are normal in caliber. There are no significant atherosclerotic changes. The IVC appears normal Pelvic organs: The uterus and adnexa appear normal GI tract: Evaluation of the bowel is limited without oral contrast. There is dilatation of small bowel at the anastomotic site. This dilatation appears little changed. There is a new ventral hernia, however, without evidence of obstruction or strangulation. The lower GI tract is unremarkable. Soft tissues: New moderate-sized ventral hernia without obstruction attenuation. Osseous structures: There are no acute osseous findings. IMPRESSION: 1. NO CT EVIDENCE OF UROLITHIASIS. 2. PERSISTENT DILATATION OF SMALL BOWEL AT THE ANASTOMOTIC SITE. THE APPEARANCE UNCHANGED. HOWEVER, THERE IS A NEW MODERATE-SIZED VENTRAL HERNIA WITHOUT FINDINGS OF OBSTRUCTION OR ANGULATION.
[2017-11-28 17:03] LABS: Urine Appearance Clear; Urine Blood Negative (Negative); Urine Color Straw; Urine Ketones Negative (Negative); Urine Protein Negative (Negative); Urine Specific Gravity 1.005 (1.010-1.030); Urine Urobilinogen Negative (Negative)
[2017-11-28 17:07] LABS: ABS Basophils 0.1 10^3/ul (0-0.2); ABS Eosinophils 0.2 10^3/ul (0-0.6); ABS Lymphocytes 1.9 10^3/ul (1.0-4.8); ABS Monocytes 0.6 10^3/ul (0-0.8); ABS Neutrophils 3.6 10^3/ul (1.5-7.7); ABS Nucleated RBC 0 10^3/ul; Eosinophil % 3.7 % (0-6); Hematocrit 31 % (35-47); Hemoglobin 9.6 g/dl (12.0-16.0); Mean Corpuscular HGB Conc 31 g/dl (31-36); Mean Corpuscular Hemoglobin 20 pg (27-31); Mean Corpuscular Volume 64 fL (80-97); Nucleated Red Blood Cells % 0; Platelet Count 461 10^3/ul (150-450); Red Blood Count 4.85 10^6/ul (4.00-5.40); Red Cell Distribution Width 20 % (10.5-15); White Blood Count 6.5 10^3/ul (3.5-10.8)
[2017-11-28 17:54] LABS: EGFR Non-African American 118.9 (>60)
[2017-11-28] MEDS ORDERED: Ketorolac INJ* 60 MG/2 ML VIAL IM ONE (18:14)
[2017-11-28] MEDS ORDERED: Cyclobenzaprine TAB* 10 MG PO ONE (18:14)
[2017-11-28] MEDS ORDERED: Dexamethasone TAB* 4 MG PO ONE (18:14)
--- NOTE | 2017-11-28 18:24 | ED ---
Back Pain - HPI Summary HPI Summary: This is scribe Isidoro Garcia documenting for attending Bladimir Yang MD. This patient is a 57 year old F presenting to [facility] with a chief complaint of spontaneous flank pain since last night. She was sitting when the pain started. The patient rates the pain 9/10 in severity. Symptoms aggravated by movement. Patient denies any trauma or exertion and pain radiating to the front. Patient is able to ambulate. She takes medications for HTN, HLD, diabetes, insomnia, and anaphylactic reactions. Patient does not smoke. I, Dr. Yang, personally performed the services described in this documentation as scribed in my presence, and it is both accurate and complete. - History of Current Complaint Chief Complaint: EDBackInjuryPain Stated Complaint: BACK PAIN Time Seen by Provider: 11/28/17 15:42 Hx Obtained From: Patient Onset/Duration: Sudden Onset, Lasting Hours - Since last night Onset/Duration: Started Hours Ago - Started last night, Still Present Timing: Lasting Hours Severity Initially: Severe Severity Currently: Severe Pain Intensity: 9 Pain Scale Used: 0-10 Numeric Aggravating Symptom(s): Movement Associated Signs And Symptoms: Negative: Other - Denies any trauma, exertion, or pain radiating - Allergies/Home Medications Allergies/Adverse Reactions: Allergies Allergy/AdvReac Type Severity Reaction Status Date / Time Penicillins Allergy Mild Edema Verified 11/28/17 15:20 BEES Allergy Mild BODY EDEMA Uncoded 04/05/17 10:55 PMH/Surg Hx/FS Hx/Imm Hx Endocrine/Hematology History: Reports: Hx Diabetes - TYPE 2 Cardiovascular History: Reports: Hx Hypercholesterolemia, Hx Hypertension - ON MEDS Denies: Other Cardiovascular Problems/Disorders Respiratory History: Denies: Other Respiratory Problems/Disorders GI History: Reports: Hx Gastroesophageal Reflux Disease Denies: Other GI Disorders History: Denies: Hx Dialysis, Hx Renal Disease Musculoskeletal History: Reports: Hx Arthritis - left wrist, Hx Tendonitis - RIGHT HAND Sensory History: Reports: Hx Contacts or Glasses - GLASSES Denies: Hx Hearing Aid Opthamlomology History: Reports: Hx Contacts or Glasses - GLASSES Neurological History: Reports: Hx Headaches, Hx Migraine Denies: Other Neuro Impairments/Disorders - Cancer History Hx Chemotherapy: No Hx Radiation Therapy: No - Surgical History Surgery Procedure, Year, and Place: RIGHT WRIST, 2011, [facility] [place]. GALLBLADDER, 1985, [facility] [place]. 03/18/12, LEFT ELBOW, [facility] [place]. 06/2016, abdominal surgery, [facility] [place] Hx Anesthesia Reactions: No Infectious Disease History: No Infectious Disease History: Denies: Traveled Outside the [place] in Last 30 Days - Family History Known Family History: Negative: Cardiac Disease, Diabetes - Social History Alcohol Use: None Hx Substance Use: No Substance Use Type: Reports: None Hx Tobacco Use: Yes - OCCASIONALLY Smoking Status (MU): Former Smoker Type: Cigarettes Amount Used/How Often: 2-3 CIGS A DAY Have You Smoked in the Last Year: Yes Review of Systems Negative: Fever Positive: Abdominal Pain - flank pain, no pain radiating to the front All Other Systems Reviewed And Are Negative: Yes Physical Exam - Summary Physical Exam Summary: VITAL SIGNS: Reviewed. GENERAL: Patient is a well-developed and nourished female who is lying comfortable in the stretcher. Patient is not in any acute respiratory distress. HEAD AND FACE: Normocephalic and atraumatic. EYES: PERRLA, EOMI x 2, No injected conjunctiva. EARS: Hearing grossly intact. Ear canals and tympanic membranes are WNL. MOUTH: Oropharynx within normal limits. NECK: Supple, trachea is midline, no adenopathy, no JVD. CHEST: Symmetric, no tenderness at palpation LUNGS: Clear to auscultation bilaterally. No wheezing or crackles. CVS: RRR, S1 and S2 present, no murmurs or gallops appreciated. ABDOMEN: Soft, non-tender. No signs of distention. Positive bowel sounds. No rebound no guarding, and no masses palpated. No abdominal bruit or pulsations. MUSCULOSKELETAL: Positive left costoverterbal angle tenderness EXTREMITIES: FROM in all major joints, no edema, no cyanosis or clubbing. NEURO: Alert and oriented x 3. No acute neurological deficits. Speech is normal. SKIN: Dry and warm Triage Information Reviewed: Yes Vital Signs On Initial Exam: Initial Vitals Temp Pulse Resp BP Pulse Ox 98.5 F 65 16 135/60 100 11/28/17 13:09 11/28/17 13:09 11/28/17 13:09 11/28/17 13:11/28/17 13:09 Vital Signs Reviewed: Yes Diagnostics - Vital Signs Vital Signs Temp Pulse Resp BP Pulse Ox 11/28/17 13:09 98.5 F 65 16 135/60 100 - Laboratory Lab Results: Lab Results 11/28/17 11/28/17 11/28/17 Range/Units 15:55 15:55 16:36 WBC 6.5 (3.5-10.8) 10^3/ul RBC 4.85 (4.00-5.40) 10^6/ul Hgb 9.6 L (12.0-16.0) g/dl Hct 31 L (35-47) % MCV 64 L (80-97) fL MCH 20 L (27-31) pg MCHC 31 (31-36) g/dl RDW 20 H (10.5-15) % Plt Count 461 H (150-450) 10^3/ul MPV 8.0 (7.4-10.4) um3 Neut % (Auto) 55.8 (38-83) % Lymph % (Auto) 30.0 (25-47) % [place] % (Auto) 9.6 H (0-7) % Eos % (Auto) 3.7 (0-6) % Baso % (Auto) 0.9 (0-2) % Absolute Neuts (auto) 3.6 (1.5-7.7) 10^3/ul Absolute Lymphs (auto) 1.9 (1.0-4.8) 10^3/ul Absolute Monos (auto) 0.6 (0-0.8) 10^3/ul Absolute Eos (auto) 0.2 (0-0.6) 10^3/ul Absolute Basos (auto) 0.1 (0-0.2) 10^3/ul Absolute Nucleated RBC 0 10^3/ul Nucleated RBC % 0 Sodium 140 (135-145) mmol/L Potassium 4.1 (3.5-5.0) mmol/L Chloride 108 (101-111) mmol/L Carbon Dioxide 22 (22-32) mmol/L Anion Gap 10 (2-11) mmol/L BUN 11 (6-24) mg/dL Creatinine 0.53 (0.51-0.95) mg/dL Est GFR ( Amer) 143.9 (>60) Est GFR (Non-Af Amer) 118.9 (>60) BUN/Creatinine Ratio 20.8 H (8-20) Glucose 95 (70-100) mg/dL Calcium 9.0 (8.6-10.3) mg/dL Total Bilirubin 1.10 H (0.2-1.0) mg/dL AST 15 (13-39) U/L ALT 12 (7-52) U/L Alkaline Phosphatase 106 H (34-104) U/L Total Creatine Kinase 64 (10-223) U/L C-Reactive Protein 6.39 (<8.01) mg/L Total Protein 6.9 (6.4-8.9) g/dL Albumin 3.7 (3.2-5.2) g/dL Globulin 3.2 (2-4) g/dL Albumin/Globulin Ratio 1.2 (1-3) Lipase 28 (11.0-82.0) U/L Urine Color Straw Urine Appearance Clear Urine pH 5.0 (5-9) Ur Specific [place] 1.005 L (1.010-1.030) Urine Protein Negative (Negative) Urine Ketones Negative (Negative) Urine Blood Negative (Negative) Urine Nitrate Negative (Negative) Urine Bilirubin Negative (Negative) Urine Urobilinogen Negative (Negative) Ur Leukocyte Esterase Negative (Negative) Urine Glucose Negative (Negative) Result Diagrams: 11/28/17 15:55 11/28/17 15:55 Lab Statement: Any lab studies that have been ordered have been reviewed, and results considered in the medical decision making process. - CT Abdomen/Pelvis CT CT Interpretation Completed By: Radiologist - 1. NO CT EVIDENCE OF UROLITHIASIS. 2. PERSISTENT DILATATION OF SMALL BOWEL AT THE ANASTOMOTIC SITE. THE APPEARANCE UNCHANGED. HOWEVER, THERE IS A NEW MODERATE-SIZED VENTRAL HERNIA WITHOUT FINDINGS OF OBSTRUCTION OR ANGULATION. ED Physician has reviewed this report. Back Pain Course/Dx - Course Assessment/Plan: This patient is a 57 year old F presenting to [facility] with a chief complaint of spontaneous flank pain since last night. She was sitting when the pain started. The patient rates the pain 9/10 in severity. Symptoms aggravated by movement. Patient denies any trauma or exertion and pain radiating to the front. Patient is able to ambulate. She takes medications for HTN, HLD, diabetes, insomnia, and anaphylactic reactions. Patient does not smoke. Results show slight anemia. Urinalysis is negative for UTI. Abdomen/ Pelvis CT: 1. NO CT EVIDENCE OF UROLITHIASIS. 2. PERSISTENT DILATATION OF SMALL BOWEL AT THE ANASTOMOTIC SITE. THE APPEARANCE. UNCHANGED. HOWEVER, THERE IS A NEW MODERATE-SIZED VENTRAL HERNIA WITHOUT FINDINGS OF. OBSTRUCTION OR ANGULATION. In the ED course, the patient was given IV fluids. Flexeril, Decadron, and Toradol for the pain. Since there was no renal calculis, I believe that the pain was more muscoskeletal train or back strain. After medications, the patient was feeling better, therefore the patient will be discharged home and follow up her PCP. The patient ambulated out of the ED. - Diagnoses Provider Diagnoses: Back pain Discharge - Sign-Out/Discharge Documenting (check all that apply): Patient Departure - D/C - Discharge Plan Condition: Stable Disposition: HOME Prescriptions: Cyclobenzaprine TAB* [Flexeril 10 MG TAB*] 10 mg PO TID PRN #12 tab PRN Reason: Pain HYDROcodone/ACETAMIN 5-325 MG* [[place] 5-325 TAB*] 1 tab PO Q6H PRN #10 tab MDD 4 PRN Reason: Pain Patient Education Materials: Back Pain (ED) Referrals: Criss Lau MD [Primary Care Provider] - 3 Days Additional Instructions: Return to the ED for new or worsening symptoms.
[2017-11-28 18:42] VITALS: BP 157/55
== END 2017-11-28 18:41 | disposition home or self-care (01) ==
LOC: ED 13:09
DX: M54.9 Dorsalgia, unspecified (principal); E11.9 Type 2 diabetes mellitus without complications; E78.00 Pure hypercholesterolemia, unspecified; I10 Essential (primary) hypertension; Z88.0 Allergy status to penicillin; Z91.030 Bee allergy status; Z87.891 Personal history of nicotine dependence
CPT/HCPCS: 36415; 74176; 80053; 81003; 82550; 83690; 85025; 86140; 96372; 99282; A9270-GY; J1885

== ENCOUNTER 2018-12-22 12:49 | Inpatient (IN) | payer MEDICAID, MEDICARE ==
[2018-12-22] MEDS ORDERED: Nitroglycerin TAB 0.4 MG* 0.4 MG TAB SL ONE (13:12)
[2018-12-22] MEDS ORDERED: Aspirin 81 mg CHEW TAB* 81 MG TAB.CHEW PO ONE (13:12)
--- NOTE | 2018-12-22 13:12 | ED ---
HPI Chest Pain - HPI Summary HPI Summary: This pt is a 58 y/o female, accompanied by friend, presenting [facility] c/o chest pain worsening since last night at 1999. Pt reports she has had chest pain for the last couple of years but it became worse last night. Pt describes her chest pain in the midsternal area and nonradiating. She notes she has SOB and mild nonproductive cough. Her chest pain is aggravated with lying down. Denies fever, chills, nausea, vomiting. Pt went over to see her PCP today and was sent to the ED for EKG changes noted. PMHx: HTN, emphysema, DM. Denies hx of high cholesterol, ND. She notes she has never had a stress test in the past. Pt currently vapes but admits to smoking in the past. Pt is a poor historian, friend is giving most of the history. - History of Current Complaint Chief Complaint: EDChestPainROMI Time Seen by Provider: 12/22/18 12:59 Hx Obtained From: Patient, Family/Crushed Stone Grader - Friend Onset/Duration: Started Days Ago, Started Weeks Ago, Still Present, Worse Since - last night Timing: Lasting Weeks Current Severity: Severe Pain Intensity: 9 Pain Scale Used: 0-10 Numeric Chest Pain Location: Mid Sternal Chest Pain Radiates: No Aggravating Factor(s): Nothing Alleviating Factor(s): Nothing Associated Signs and Symptoms: Positive: Chest Pain, Shortness of Breath, Cough. Negative: Fever, Chills, Nausea, Vomiting - Additional Pertinent History Primary Care Physician: [id number] - Allergy/Home Medications Allergies/Adverse Reactions: Allergies Allergy/AdvReac Type Severity Reaction Status Date / Time bee venom protein (honey bee) Allergy Mild Edema Verified 12/22/18 15:28 Penicillins Allergy Mild Edema Verified 11/28/17 15:20 PMH/Surg Hx/FS Hx/Imm Hx Endocrine/Hematology History: Reports: Hx Diabetes - TYPE 2 Cardiovascular History: Reports: Hx Hypercholesterolemia, Hx Hypertension - ON MEDS Denies: Other Cardiovascular Problems/Disorders Respiratory History: Reports: Other Respiratory Problems/Disorders - emphysema GI History: Reports: Hx Gastroesophageal Reflux Disease Denies: Other GI Disorders History: Denies: Hx Dialysis, Hx Renal Disease Musculoskeletal History: Reports: Hx Arthritis - left wrist, Hx Tendonitis - RIGHT HAND Sensory History: Reports: Hx Contacts or Glasses - GLASSES Denies: Hx Hearing Aid Opthamlomology History: Reports: Hx Contacts or Glasses - GLASSES Neurological History: Reports: Hx Headaches, Hx Migraine Denies: Other Neuro Impairments/Disorders - Cancer History Hx Chemotherapy: No Hx Radiation Therapy: No - Surgical History Surgery Procedure, Year, and Place: RIGHT WRIST, 2010, [facility]. GALLBLADDER, 1985, [facility]. 03/18/12, LEFT ELBOW, [facility]. 06/2016, abdominal surgery, [facility] Hx Anesthesia Reactions: No Infectious Disease History: No Infectious Disease History: Denies: Traveled Outside the [place] in Last 30 Days - Family History Known Family History: Negative: Cardiac Disease, Diabetes - Social History Alcohol Use: None Hx Substance Use: No Substance Use Type: Reports: None Hx Tobacco Use: Yes - OCCASIONALLY Smoking Status (MU): Light Every Day Tobacco Smoker Type: Cigarettes, eCigarettes Amount Used/How Often: 2-3 CIGS A DAY Have You Smoked in the Last Year: Yes Review of Systems Negative: Fever, Chills Positive: Chest Pain Positive: Shortness Of Breath, Cough Negative: Vomiting, Nausea All Other Systems Reviewed And Are Negative: Yes Physical Exam - Summary Physical Exam Summary: GENERAL: Patient is a well-developed and nourished female who is lying comfortable in the stretcher. Patient is not in any acute respiratory distress. HEAD AND FACE: Normocephalic EYES: PERRLA, EOMI x 2. EARS: Hearing grossly intact. MOUTH: Oropharynx within normal limits. NECK: Supple, trachea is midline, no adenopathy, no JVD, no carotid bruit. CHEST: Symmetric, no tenderness at palpation LUNGS: Clear to auscultation bilaterally. No wheezing or crackles. CVS: Regular rate and rhythm, S1 and S2 present, no murmurs or gallops appreciated. ABDOMEN: Soft, non-tender. Bowel sounds are normal. No abnormal abdominal pulsations. EXTREMITIES: Full ROM in all major joints, no edema, no cyanosis or clubbing. NEURO: Alert and oriented x 3. No acute neurological deficits. Speech is normal and follows commands. SKIN: Dry and warm Triage Information Reviewed: Yes Vital Signs On Initial Exam: Initial Vitals Temp Pulse Resp BP Pulse Ox 98.2 F 103 20 132/76 98 12/22/18 12:57 12/22/18 12:57 12/22/18 12:57 12/22/18 12:57 12/22/18 12:57 Vital Signs Reviewed: Yes Diagnostics - Vital Signs Vital Signs Temp Pulse Resp BP Pulse Ox 12/22/18 13:00 90 21 95 12/22/18 12:58 94 21 98 12/22/18 12:57 98.2 F 103 20 132/76 98 - Laboratory Result Diagrams: 12/22/18 13:23 12/22/18 13:23 Lab Statement: Any lab studies that have been ordered have been reviewed, and results considered in the medical decision making process. - Radiology Chest XR Radiology Interpretation Completed By: Radiologist Summary of Radiographic Findings: IMPRESSION: No evidence for active cardiopulmonary disease. Dr. Nuñez has reviewed this report. - EKG 12:48 Cardiac Rate: Tachycardia - at 100 bpm EKG Rhythm: Sinus Tachycardia Summary of EKG Findings: Intraventricular conduction delay. ST depressions in inferior leads. Re-Evaluation - Re-Evaluation First Eval Re-Evaluation Time: 13:42 Comment: Dr. Bartlett, interventionalist, at bedside. Chest Pain Course/Dx - Course Assessment/Plan: Pt is a 58 y/o female presenting to [facility] c/o chest pain for the last couple of years that worsened last night. Chest XR shows no evidence for active cardiopulmonary disease. Test results significant for D-dimer of 453 , alkaline phosphatase of 155, BNP of 248. In the ED course the pt was given IV fluids, aspirin, nitroglycerin. Discussed with Dr. Melchor, extension service advisor, who recommended consulting Dr. Bartlett. Spoke with Dr. Bartlett who came and evaluated the pt in the ED. Presented the case to pritesh Daviesist, for admission. I discussed results with patient. The patient agrees with this plan. - Diagnoses Provider Diagnoses: Chest pain - Provider Notifications Discussed Care Of Patient With: Danny Melchor Time Discussed With Above Provider: 13:19 Instructed by Provider To: Other - Discussed with Dr. Melchor, extension service advisor, who recommends consulting with Dr. Bartlett. [13:36] Discusssed with Dr. Bartlett, interventionalist, who will come see the pt in the ED. [14:13] Discussed with Dr. Davies, hospitalist, and presented the case for admission. Discharge ED - Sign-Out/Discharge Documenting (check all that apply): Patient Departure - Admit to [facility] Patient Received Moderate/Deep Sedation with Procedure: No - Discharge Plan Condition: Stable Disposition: ADMITTED TO [facility] - Billing Disposition and Condition Condition: STABLE Disposition: Admitted to [facility] - Attestation Statements Document Initiated by Ramy: Yes Documenting Scribe: Mandy Barros Provider For Whom Ramy is Documenting (Include Credential): Rissa Nuñez MD Scribe Attestation: Mandy Kang, scribed for Rissa Nuñez MD on 12/22/18 at 2059. Scribe Documentation Reviewed: Yes Provider Attestation: The documentation as recorded by the Mandy lee accurately reflects the service I personally performed and the decisions made by , Rissa Nuñez MD Status of Scribe Document: Viewed
[2018-12-22] MEDS ORDERED: NS 0.9% 1000 ML** 1,000 ML IV ONE (13:13)
[2018-12-22 13:43] LABS: ABS Basophils 0.1 10^3/ul (0-0.2); ABS Eosinophils 0.2 10^3/ul (0-0.6); ABS Lymphocytes 1.5 10^3/ul (1.0-4.8); ABS Monocytes 0.6 10^3/ul (0-0.8); ABS Neutrophils 4.6 10^3/ul (1.5-7.7); Eosinophil % 3.3 %; Hematocrit 38 % (35-47); Hemoglobin 12.3 g/dL (12.0-16.0); Lymphocyte % 21.1 %; Mean Corpuscular HGB Conc 33 g/dL (31-36); Mean Corpuscular Hemoglobin 25 pg (27-31); Mean Corpuscular Volume 78 fL (80-97); Mean Platelet Volume 8.3 fL (7.4-10.4); Platelet Count 390 10^3/uL (150-450); Red Blood Count 4.86 10^6 /uL (3.70-4.87); Red Cell Distribution Width 18 % (10-15); White Blood Count 7.1 10^3/uL (3.5-10.8)
[2018-12-22 13:52] LABS: ALT 14 U/L (7-52); AST 15 U/L (13-39); Albumin 3.7 g/dL (3.2-5.2); Albumin/Globulin Ratio 1.1 (1-3); Alkaline Phosphatase 155 U/L (34-104); Anion Gap 6 mmol/L (2-11); Blood Urea Nitrogen 11 mg/dL (6-24); CO2 Carbon Dioxide 26 mmol/L (22-32); Calcium 9.3 mg/dL (8.6-10.3); Chloride 107 mmol/L (101-111); EGFR African American 129.2 (>60); EGFR Non-African American 106.8 (>60); Globulin 3.5 g/dL (2-4); Glucose 101 mg/dL (70-100); Potassium 3.8 mmol/L (3.5-5.0); Sodium 139 mmol/L (135-145); Total Protein 7.2 g/dL (6.4-8.9)
--- OUTSIDE RECORDS SUMMARY | 2018-12-22 13:52 | XMS REPORT | Continuity of Care Document ---
:1960 External Reference #:[id number] Author Name Criss Lau M.D. (transmitted by agent of provider Yvonne Barrera) Address [address], [place] [address] Care Team Providers Name Role Phone Criss Lau MD - Internal Care Team Information Pharmacy Services Director [phone] Medicine Luda Craig MD - Obstetrics & Care Team Information Pharmacy Services Director [phone] Gynecology carissa-Diana Betancourt M.D. - Single Care Team Information Pharmacy Services Director [phone] [facility] - Mental Care Team Information Pharmacy Services Director [facility] ENT - Clinic/Center Care Team Information Pharmacy Services Director [phone] Roland Rey MD - Care Team Information Pharmacy Services Director [phone] Otolaryngology Problems Active Problems Provider Date Type 2 diabetes mellitus Felicity Negrete M.D., FACP Onset: 07/13/2010 Pure hypercholesterolemia Felicity Negrete M.D., FACP Onset: 07/13/2010 Benign essential hypertension Felicity Negrete M.D., FACP Onset: 07/13/2010 Migraine without aura, not refractory Cherelle Francis M.D. Onset: 2014 Social History Type Date Description Comments Sex Unknown Tobacco Use Start: Unknown End: Former Cigarette Smoker quit in 2013, started Unknown in her teens, never smoked more than 4 cigarettes in a day, usually less. Quit in 2014 (40 yr) ETOH Use Denies alcohol use Tobacco Use Start: Unknown Light tobacco smoker (10 or fewer cigarettes/day) Smoking Status Reviewed: 12/01/18 Light tobacco smoker (10 or fewer cigarettes/day) Exercise Does not exercise Type/Frequency Allergies, Adverse Reactions, Alerts Active Allergies Reaction Severity Comments Date Penicillin swelling 11/02/2009 Bee Sting 11/02/2009 Losartan cough 07/25/2015 Lisinopril cough 07/25/2015 Medications Active Medications SIG Qnty Indications Ordering Provider Date Ferrous Gluconate take 1 tablet by 30tabs D50.9 [facility], 2018 mouth once daily M.D. 324(38Fe) mg Tablets i Esomeprazole Take One Capsule 90caps [facility], 06/04/2018 Magnesium By Mouth Every M.D. 40mg Capsules Day DR Lobo Chair For daily use Dx 1units R26.81 [facility], 08/27/2017 r 26.81 M.D. Amlodipine Besylate take one tablet 90tabs I10 [facility], 2017 by mouth every M.D. 2.5mg Tablets day Vitamin B12 1 by mouth every 30tabs R26.81 [facility], 02/11/2017 1000mcg day M.D. Tablets ER Walker 4 wheels, 1units R26.81 [facility], 01/11/2017 [facility] brakes, seat and M.D. basket. r26.81 G62.9 Atorvastatin Calcium Take One Tablet 90tabs E78.5 [facility], 2016 20mg By Mouth Every M.D. Tablets Day Miralax 17 gm every day 510units R10.13 [facility], 11/17/2015 3350NF Powder mixed w/ 8 oz M.D. water/juice as needed Gabapentin Take One Capsule 90caps E11.40 [facility], 02/25/2015 100mg Capsules By Mouth Twice A M.D. Day Epipen 2-Clifford for use as 1units [facility], 02/15/2015 0.3mg/0.3ML directed M.D. Solution Auto-Inject Aspir[facility] 1 [facility] gera Santos Zomig take 1 tablet as 12tabs Donald Alvarado, 07/16/2013 5mg Tablets needed for M.D. migraine may repeat once in 2 hours. maximum 2 days per week Naproxen 1 tab by mouth 60tabs Donald Alvarado, 03/13/2012 500mg Tablets every 8 hours as M.D. needed Citalopram Hydrobromide take one tablet 135tabs Criss [place], 2011 by mouth once M.D. 20mg Tablets daily Metformin HCL ER Take One Tablet 90tabs [facility], 08/30/2011 500mg By Mouth Every M.D. Tablets ER 24HR Day Latanoprost Instill 1 Drop AdarshBrittaney, 0.005% Solution Into Both Eyes AT O.D. Bedtime Nortriptyline HCL Krissy, 25mg MD Roland Capsules History Medications Ferrous Gluconate take 1 tablet by 60tabs D50.9 [facility], 2018 - mouth once daily M.D. 08/29/2018 324(38Fe) mg if tolerated take Tablets twice daily Medications Administered in Office Medication SIG Qnty Indications Ordering Provider Date Depomedrol 40MG Roberta Blackwood M.D. 03/20/2017 Injection Depomedrol 40MG Roberta Blackwood M.D. 05/21/2016 Injection Depomedrol 80MG Roberta Blackwood M.D. 07/29/2014 Injection Immunizations CPT Code Status Date Vaccine Lot # [id number] Given 01/17/2018 Influenza Virus Vaccine, Quadrivalent, Split, [id number] Preservative Free 45450 Given 02/16/2016 Influ Virus Vaccine, Quadrivalent, Split Virus, [id number] [address] Given 01/21/2015 Influenza Virus Vaccine, Quadrivalent, Split, [id number] Preservative Free 15340 Given 01/24/2014 Flu Vaccine Split Virus Preservative Free For Indiv 3Yr Older 67507 Given 11/28/2011 Pneumonia Vaccine [id number] Given 03/21/2011 Afluria Vaccine [id number] 76038 Given 12/30/2009 Influenza Virus 3Yrs & Over 75083 Given 02/28/2009 Influenza Virus Vaccine, Pandemic Formulation 10491 Given 02/24/2009 Influenza Virus 3Yrs & Over 94650 Given 02/26/2008 Influenza Virus 3Yrs & Over 93919 Given 02/26/2008 Influenza Virus 3Yrs & Over 52648 Given 03/13/2007 Influenza Virus 3Yrs & Over 04640 Given 03/13/2007 Influenza Virus 3Yrs & Over 79342 Given 02/22/2006 Influenza Virus 3Yrs & Over Vital Signs Date Vital Result Comment 12/01/2018 8:47am Height 63 inches 5'3" Weight 183.00 lb Heart Rate 85 /min BP Systolic 125 mmHg BP Diastolic 74 mmHg O2 % BldC Oximetry 97 % BMI (Body Mass Index) 32.4 kg/m2 10/07/2018 8:34am Height 63 inches 5'3" Weight 178.00 lb Heart Rate 64 /min BP Systolic 132 mmHg BP Diastolic 80 mmHg BMI (Body Mass Index) 31.5 kg/m2 Results Test Date Facility Test Result H/L Range Note CBC Auto 11/22/2018 [facility] White Blood 7.0 10^3/uL Normal 3.5-10.[address] [place] [address] [phone] Red Blood Count 4.71 10^6/uL Normal 3.70-4.87 Hemoglobin 11.9 g/dL Low 12.0-16.0 Hematocrit 36 % Normal 35-47 Mean Corpuscular Volume 76 fL Low 80-97 Mean Corpuscular Hemoglobin 25 pg Low 27-31 Mean Corpuscular HGB Conc 33 g/dL Normal 31-36 Red Cell Distribution Width 17 % High 10-15 Platelet Count 405 10^3/uL Normal 150-450 Mean Platelet Volume 8.1 fL Normal 7.4-10.4 Abs Neutrophils 3.9 10^3/uL Normal 1.5-7.7 Abs Lymphocytes 1.9 10^3/uL Normal 1.0-4.8 Abs Monocytes 0.7 10^3/uL Normal 0-0.8 Abs Eosinophils 0.4 10^3/uL Normal 0-0.6 Abs Basophils 0.0 10^3/uL Normal 0-0.2 Abs Nucleated RBC 0.0 10^3/uL Granulocyte % 56.5 % Lymphocyte % 27.2 % Monocyte % 9.6 % Eosinophil % 6.0 % Basophil % 0.7 % Nucleated Red Blood Cells % 0.1 Laboratory test 11/22/2018 [facility] Hemoglobin A1c 6.5 % High 4.0-5.6 [address] (Glyco HGB) [place] [address] [phone] Comp Metabolic 11/22/2018 [facility] Sodium 139 Normal 135- [address] mmol/[place] [address] [phone] Potassium 4.2 mmol/L Normal 3.5-5.0 Chloride 105 mmol/L Normal 101-111 Co2 Carbon Dioxide 26 mmol/L Normal 22-32 Anion Gap 8 mmol/L Normal 2-11 Calcium 9.3 mg/dL Normal 8.6-10.3 Albumin 3.6 g/dL Normal 3.2-5.2 Total Bilirubin 0.90 mg/dL Normal 0.2-1.0 Glucose 91 mg/dL Normal 70-100 Blood Urea Nitrogen 11 mg/dL Normal 6-24 Creatinine 0.54 mg/dL Normal 0.51-0.95 BUN/Creatinine Ratio 20.4 High 8-20 Total Protein 6.9 g/dL Normal 6.4-8.9 Globulin 3.3 g/dL Normal 2-4 Albumin/Globulin Ratio 1.1 Normal 1-3 Alkaline Phosphatase 147 U/L High 34-104 Alt 29 U/L Normal 7-52 Ast 23 U/L Normal 13-39 Egfr Non- 116.0 >60 Egfr 140.3 >60 2 CBC Auto 08/22/2018 [facility] White Blood 6.1 10^3/uL Normal 3.5-10.[address] [place] [address] [phone] Red Blood Count 5.33 10^6/uL High 3.70-4.87 Hemoglobin 12.2 g/dL Normal 12.0-16.0 Hematocrit 39 % Normal 35-47 Mean Corpuscular Volume 73 fL Low 80-97 Mean Corpuscular Hemoglobin 23 pg Low 27-31 Mean Corpuscular HGB Conc 32 g/dL Normal 31-36 Red Cell Distribution Width 26 % High 10.5-15 Platelet Count 365 10^3/uL Normal 150-450 Mean Platelet Volume 8.3 fL Normal 7.4-10.4 Abs Neutrophils 3.1 10^3/uL Normal 1.5-7.7 Abs Lymphocytes 2.2 10^3/uL Normal 1.0-4.8 Abs Monocytes 0.6 10^3/uL Normal 0-0.8 Abs Eosinophils 0.2 10^3/uL Normal 0-0.6 Abs Basophils 0.0 10^3/uL Normal 0-0.2 Abs Nucleated RBC 0.0 10^3/uL Granulocyte % 50.0 % Lymphocyte % 35.8 % Monocyte % 9.5 % Eosinophil % 4.0 % Basophil % 0.7 % Nucleated Red Blood Cells % 0.1 Iron & Iron Binding 08/22/2018 [facility] Iron 88 g/dL Normal 50-212 Capacity [address] [place] [address] [phone] Unsaturated Iron Binding < 404 g/dL Total Iron Binding Capacity 419 g/dL Normal 250-450 Transferrin 299 mg/dL Normal 203-362 % Iron Saturation 21 % Normal 15-55 Laboratory test 08/22/2018 [facility] B-Type 50 pg/mL <=100 finding [address] [facility] [address] Peptide BNP [phone] Liver Function 08/22/2018 [facility] Total Protein 7.5 g/dL Normal 6.4-8.9 Panel [address] [place], [place] [id number] [phone] Albumin 4.0 g/dL Normal 3.2-5.2 Globulin 3.5 g/dL Normal 2-4 Albumin/Globulin Ratio 1.1 Normal 1-3 Total Bilirubin 1.30 mg/dL High 0.2-1.0 Direct Bilirubin 0.20 mg/dL High 0.03-0.18 Indirect Bilirubin 1.1 mg/dL High 0.3-1.0 Alkaline Phosphatase 122 U/L High 34-104 Alt 14 U/L Normal 7-52 Ast 13 U/L Normal 13-39 Laboratory test 08/22/2018 [facility] Pathologist Review (SEE NOTE) 3 finding [address] [place] [address] [phone] Lipid Profile 07/11/2018 [facility] Triglycerides 138 mg/dL 4 (Trig/Chol/HDL) [address] [place] [address] [phone] Cholesterol 153 mg/dL 5 HDL Cholesterol 73.9 mg/dL 6 LDL Cholesterol 52 mg/dL 7 Comp Metabolic 07/11/2018 [facility] Sodium 138 mmol/L Normal 135-145 Panel [address] [place] [address] [phone] Potassium 4.2 mmol/L Normal 3.5-5.0 Chloride 106 mmol/L Normal 101-111 Co2 Carbon Dioxide 24 mmol/L Normal 22-32 Anion Gap 8 mmol/L Normal 2-11 Glucose 81 mg/dL Normal 70-100 Blood Urea Nitrogen 10 mg/dL Normal 6-24 Creatinine 0.54 mg/dL Normal 0.51-0.95 BUN/Creatinine Ratio 18.5 Normal 8-20 Calcium 9.7 mg/dL Normal 8.6-10.3 Total Protein 7.0 g/dL Normal 6.4-8.9 Albumin 3.8 g/dL Normal 3.2-5.2 Globulin 3.2 g/dL Normal 2-4 Albumin/Globulin Ratio 1.2 Normal 1-3 Total Bilirubin 1.20 mg/dL High 0.2-1.0 Alkaline Phosphatase 109 U/L High 34-104 Alt 17 U/L Normal 7-52 Ast 15 U/L Normal 13-39 Egfr Non- 116.0 >60 Egfr 140.3 >60 8 Laboratory test 07/11/2018 [facility] Hemoglobin A1c 6.0 % High 4.0-5.[address] (Glyco HGB) [place] [address] [phone] Urine 07/11/2018 [facility] Ur Microalbumin < 15.[address] (mg/L) mg/[place] [address] [phone] Urine Creatinine 82.37 mg/dL Urine Microalbumin/Creatinine TNP <31 10 CBC Auto 07/11/2018 [facility] White Blood 6.9 10^3/uL Normal 3.5-10.[address] [place] [address] [phone] Red Blood Count 4.79 10^6/uL Normal 3.70-4.87 Hemoglobin 10.0 g/dL Low 12.0-16.0 Hematocrit 31 % Low 33-41 Mean Corpuscular Volume 65 fL Low 80-97 11 Mean Corpuscular Hemoglobin 21 pg Low 27-31 Mean Corpuscular HGB Conc 32 g/dL Normal 31-36 Red Cell Distribution Width 20 % High 10.5-15 Platelet Count 497 10^3/uL High 150-450 Mean Platelet Volume 8.0 fL Normal 7.4-10.4 Abs Neutrophils 4.0 10^3/uL Normal 1.5-7.7 Abs Lymphocytes 1.9 10^3/uL Normal 1.0-4.8 Abs Monocytes 0.6 10^3/uL Normal 0-0.8 Abs Eosinophils 0.3 10^3/uL Normal 0-0.6 Abs Basophils 0.1 10^3/uL Normal 0-0.2 Abs Nucleated RBC 0 10^3/uL Granulocyte % 58.3 % Lymphocyte % 27.7 % Monocyte % 9.1 % Eosinophil % 4.0 % Basophil % 0.9 % Nucleated Red Blood Cells % 0 Iron & Iron Binding 07/11/2018 [facility] Iron 24 g/dL Low 50-212 [address] [place] [address] [phone] Unsaturated Iron Binding < 465 g/dL Total Iron Binding Capacity 480 g/dL High 250-450 Transferrin 343 mg/dL Normal 203-362 % Iron Saturation 5 % Low 15-55 1 Therapeutic target for the treatment of diabetes mellitus patients is <7% HBA1C, and in selective patients <6.0%. Please refer to [place] [employer] diabetic care guidelines for further information. 2 Because ethnic data is not always readily [...] 15-29 5 Kidney failure <15 (or dialysis) 3 Mild microcytosis with limited RBC an elevated RDW. Differential diagnosis includes partially replete iron deficiency or less likely compensated hemoglobinopathy. Additional studies as clinically warranted. Reviewed by Dr. Villanueva 4 Desirable: <150 Borderline High: 150-199 High: 200-499 Very High: >500 5 Desirable: <200 Borderline High: 200-239 High: >239 6 Low: <40 Desirable: 40-60 High: >60 7 Desirable: <100 Near Optimal: 100-129 Borderline High: 130-159 High: 160-189 Very High: >189 8 Because ethnic data is not always readily [...] 15-29 5 Kidney failure <15 (or dialysis) 9 Therapeutic target for the treatment of diabetes mellitus patients is <7% HBA1C, and in selective patients <6.0%. Please refer to [place] [employer] diabetic care guidelines for further information. 10 Unable to calculate due to low microalbumin 11 Consistent with Previous Results Reported on 01/09/18 Procedures Date Code Description Status 09/26/2018 [id number] Diabetic Retinal Eye Exam Completed 08/01/2018 [id number] Mammogram Completed 03/11/2018 [id number] Colonoscopy Completed 09/26/2017 [id number] Diabetic Retinal Eye Exam Completed 03/15/2017 [id number] Diabetic Retinal Eye Exam Completed 12/07/2016 [id number] Mammogram Completed 09/07/2016 [id number] Diabetic Retinal Eye Exam Completed 12/02/2015 [id number] Mammogram Completed 11/19/2014 [id number] Mammogram Completed 06/28/2014 [id number] Diabetic Retinal Eye Exam Completed 11/20/2013 [id number] Mammogram Completed 09/09/2013 [id number] Diabetic Retinal Eye Exam Completed 11/13/2012 [id number] Mammogram Completed 08/20/2012 [id number] Diabetic Retinal Eye Exam Completed 05/15/2012 [id number] Mammogram Completed 12/26/2011 [id number] Mammogram Completed 12/13/2011 [id number] Mammogram Completed 08/31/2010 [id number] Colonoscopy Completed 11/13/2007 [id number] Mammogram Completed 05/14/2007 [id number] Mammogram Completed 10/18/2006 [id number] Mammogram Completed 05/07/2003 [id number] Mammogram Completed Medical Devices Description No Information Available Encounters Type Date Location Provider Dx Diagnosis Office Visit 10/07/2018 [facility] Donald Palmer J32.9 Chronic sinusitis , 8:45a [facility] Alvarado M.D. unspecified G43.009 Migraine w/o aura, not intractable, w/o status migrainosus G50.1 Atypical facial pain Office Visit 08/29/2018 8:40a [facility] Internal Criss D64.9 Anemia, Brandi Lau M.D. unspecified Ccmob E11.9 Type 2 diabetes mellitus without complications R74.0 Nonspec elev of levels of transamns & lactic acid dehydrgnse Office Visit 08/25/2018 [facility] Jose Ahn, G43.009 Migraine w/o aura, 3:00p Neurolog[facility] [employer] not intractable, [facility] w/o status migrainosus Office Visit 07/18/2018 [facility] Internal Criss E11.42 Type 2 diabetes 9:00a Brandi Lau M.D. mellitus with diabetic polyneuropathy D50.9 Iron deficiency anemia, unspecified I10 Essential (primary) hypertension Z12.31 Encntr screen mammogram for malignant neoplasm of breast R06.02 Shortness of breath Assessments Date Code Description Provider 12/01/2018 D64.9 Anemia, unspecified Criss Lau M.D. 12/01/2018 R74.0 Nonspecific elevation of levels of Criss Lau M.D. transaminase and lactic acid dehydrogenase [LDH] 12/01/2018 E11.9 Type 2 diabetes mellitus without Criss Lau M.D. complications 10/07/2018 J32.9 Chronic sinusitis, unspecified Donald Alvarado M.D. 10/07/2018 G43.009 Migraine without aura, not intractable, Donald Alvarado M.D. without status migra 10/07/2018 G50.1 Atypical facial pain Donald Alvarado M.D. 08/29/2018 D64.9 Anemia, unspecified Criss Lau M.D. 08/29/2018 E11.9 Type 2 diabetes mellitus without Criss Lau M.D. complications 08/29/2018 R74.0 Nonspecific elevation of levels of Criss Lau M.D. transaminase and lactic a 08/25/2018 G43.009 Migraine without aura, not intractable, Jose Ahn, [employer] without status migra 07/18/2018 E11.42 Type 2 diabetes mellitus with diabetic Criss Lau M.D. polyneuropathy 07/18/2018 D50.9 Iron deficiency anemia, unspecified Criss Lau M.D. 07/18/2018 I10 Essential (primary) hypertension Criss Lau M.D. 07/18/2018 Z12.31 Encounter for screening mammogram for Criss Lau M.D. malignant neoplasm of 07/18/2018 R06.02 Shortness of breath Criss Lau M.D. Plan of Treatment Future Appointment(s):10/20/2019 11:00 am - Criss [facility] M.D. at [facility] Criss Lau M.D.D64.9 Anemia, unspecifiedNew Labs:CBC Auto Diff, Ordered: 12/01/18C Reactive Protein, Ordered : 12/01/18Comments:Your hemoglobin level is very close to normal, but a little lower than last check Stay on iron (ferrous gluconate)Follow up:AWV in 6 axtvusG71.0 Nonspecific elevation of levels of transaminase and lactic acid dehydrogenase [LDH]New Labs:Liver Function Panel, Ordered: 12/01/18GGTP, Ordered : 12/01/18Comments:Blood test in 6 lttfdI26.9 Type 2 diabetes mellitus without complicationsComments:Your A1C is 6.5 which is very good. Next A1C due in 6 monthsThe A1C measures the sugar level inside red blood cells. Since red cells circulate in the blood for 3 months, the A1C estimates the average blood sugar over that time frame. Functional Status Description No Information Available Mental Status Description No Information Available Referrals Refer to Reason for Referral Status Appt Date [facility] Sent [address] [place] [address] [phone]
[2018-12-22 14:08] LABS: Activated Partial Thrombo Time 38.7 seconds (26.0-38.0); INR 1.03 (0.82-1.09)
[2018-12-22] MEDS ORDERED: Perflutren Lipid Microsphere* 3 ML VIAL ONE (14:35)
[2018-12-22 14:47] LABS: Troponin I 0.03 ng/mL (<0.04)
[2018-12-22] MEDS ORDERED: Ondansetron INJ* 2 MG/ML VIAL IV PRN (15:02)
[2018-12-22] MEDS ORDERED: Heparin DRIP 25,000 UNITS(*) 25,000 UNITS/500 ML BAG IV SCH (15:15)
--- NOTE | 2018-12-22 15:23 | ECHO ---
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 Myocardial Infarction (new). History: Risk factors: Former tobacco use. Hypertension. Diabetes mellitus. Conclusions Summary: - Left ventricle: The cavity size is mildly dilated. Wall thickness is normal. Systolic function is severely reduced by visual assessment. The estimated ejection fraction is 20-25%. Severe diffuse hypokinesis. Bases move best. - Left atrium: The atrium is mildly dilated. - Mitral valve: There is mild to moderate regurgitation. - Ascending aorta: The ascending aorta is mildly dilated. - There is no prior echocardiogram available to compare with at this time. Study data: Transthoracic echocardiogram. Procedure: Transthoracic echocardiography was performed. Image quality was suboptimal. The study was technically limited due to body habitus. Intravenous Definity , 2 mlswas administered. Complete 2D, spectral Doppler, and color flow Doppler. Location: Emergency department. Patient status: Inpatient. Patient room number: ED-16. Rhythm: Normal sinus rhythm. Findings Left ventricle: The cavity size is mildly dilated. Wall thickness is normal. Systolic function is severely reduced by visual assessment. The estimated ejection fraction is 20-25%. Severe diffuse hypokinesis. Bases move best. Doppler parameters are consistent with abnormal left ventricular relaxation (grade 1 diastolic dysfunction). Right ventricle: The cavity size is normal. Systolic function is low normal. Systolic pressure is within the normal range. Left atrium: The atrium is mildly dilated. Right atrium: The atrium is normal in size. Mitral valve: The leaflets are mildly thickened. There is mild to moderate regurgitation. Aortic valve: The valve is trileaflet. The leaflets are mildly thickened. There is no evidence of stenosis. There is no significant regurgitation. Tricuspid valve: The leaflets are normal thickness. There is no evidence of stenosis. There is trace to mild regurgitation. Pulmonic valve: Poorly visualized. The leaflets are normal thickness. There is no evidence of stenosis nor regurgitation. Aorta: Ascending aorta: The ascending aorta is mildly dilated. The aortic root appears normal. The aortic arch appears normal. Pericardium: A prominent pericardial fat pad is present. There is no significant pericardial effusion. Pulmonary arteries: The main pulmonary artery is normal-sized. Systolic pressure is within the normal range. Systemic veins: Inferior vena cava: The vessel is normal in size. There is (>= 50%) respiratory change in the IVC dimension. Measurements Left ventricle Value Ref Aortic valve Value Ref KINGS, LAX (H) 5.7 cm 3.8 - 5.2 Leonid diam, ED 2.0 cm ----- ESD, LAX (H) 5.3 cm 2.2 - 3.5 Peak v, S 1.67 m/sec ----- FS, LAX (L) 8 % 27 - 45 VTI, S 30.5 cm ----- PW, ED, LAX 0.8 cm 0.6 - 0.9 Mean grad, S 5.0 mm Hg ----- FS (L) 8 % 27 - 45 Peak grad, S 11.0 mm Hg ----- PW, ED 0.8 cm 0.6 - 0.9 LVOT/AV, VTI ratio 0.49 ----- E', lat leonid, TDI (L) 9.6 cm/sec >=10.0 E/e', lat leonid, 13 Mitral valve Value Ref TDI Peak E 1.29 m/sec ----- E', med leonid, TDI (L) 6.0 cm/sec >=7.0 Peak A 1.54 m/sec --- -- E/e', med leonid, 22 Decel time 116 ms ----- TDI Peak grad, D 6.7 mm Hg ----- E', avg, TDI 7.8 cm/sec Peak E/A ratio 0.8 ----- E/e', avg, TDI (H) 17 <=14 Pulmonic valve Value Ref LVOT Value Ref Peak v, S 1.35 m/sec ----- Peak seamus, S 0.85 m/sec Peak grad, S 7.0 mm Hg ----- VTI, S 15.0 cm Mean grad, S 1 mm Hg Tricuspid valve Value Ref TR peak v 2.4 m/sec <=2.8 Ventricular septum Value Ref Peak RV-RA grad, S 23 mm Hg ----- IVS, ED 0.8 cm 0.6 - 0.9 Aortic root Value Ref Right ventricle Value Ref Root diam 2.9 cm <4.0 KINGS, LAX 2.3 cm KINGS minor ax, A4C 2.7 cm 1.9 - 3.5 Ascending aorta Value Ref mid AAo AP diam, S 3.8 cm ----- Pressure, S 26 mm Hg Aortic arch Value Ref Left atrium Value Ref Arch diam 1.8 cm ----- AP dim, ES 3.80 cm 2.70 - 3.80 Decending aorta Value Ref ML dim, A4C 4.3 cm Abdiaziz peak seamus 0.77 m/sec ----- SI dim, A4C 5.4 cm Vol/bsa, ES, 1-p 31 ml/m^2 11 - 40 Pulmonary artery Value Ref A4C Pressure, S 19.0 mm Hg ----- Vol/bsa, ES, A/L (H) 37 ml/m^2 16 - 34 Inferior vena cava Value Ref Right atrium Value Ref Diam 1.8 cm ----- SI dim, ES 5.1 cm 3.4 - 5.3 ML dim, ES, A4C 3.5 cm 2.6 - 4.4 SI dim, ES, A4C 5.1 cm 3.4 - 5.3 Estimated RAP 3 mm Hg Legend: (L) and (H) gretchen values outside specified reference range. Prepared and electronically signed by Danny Melchor MD 12/22/2018 15:23
[2018-12-22] MEDS ORDERED: Heparin VIAL(*) 5000 UNITS/ML VIAL (FIVE THOUSAND) IV PRN (15:33)
[2018-12-22] MEDS ORDERED: Polyethylene Glycol 3350* 17 GM PACKET PO PRN (16:00)
[2018-12-22] MEDS ORDERED: Iodixanol* (CONTRAST) 320 MG/ML 100 ML SDV IV ONE (16:11)
--- NOTE | 2018-12-22 17:07 | CONS ---
CC: Dr. Lau * CARDIOLOGY CONSULTATION: DATE OF CONSULT: 12/22/18 REFERRING PHYSICIANS: Dr. Rissa Nuñez and PRECIOUS Mancia. REASON FOR CARDIOLOGY CONSULTATION: Chest pain. HISTORY OF PRESENT ILLNESS: Ms. Clifton is a 58-year-old woman without known coronary artery disease who has been noticing chest pain. She had an abnormal EKG today consistent with atypical new left bundle branch block. Stat echo was performed, which showed that she had severe cardiomyopathy, ejection fraction 25 % to 30% with severe diffuse global hypokinesis (please see also that report). Her initial troponin was reported positive; however, followup re-run troponin is negative at 0.03. The patient herself states that she has no chest pain now after, I believe, she has received ondansetron here. The patient has a longstanding history of atypical chest pain. Reportedly, she has had a negative stress test more than 2 years ago and it does not sound like she has had any recent cardiac evaluation. PAST MEDICAL HISTORY: Includes diabetes, hypertension, GERD, mental challenge, hyperlipidemia. OUTPATIENT MEDICATIONS: 1. Norvasc 2.5 mg once a day. 2. Zolmitriptan 2.5 mg p.r.n. 3. Lipitor 20 mg once a day. 4. Neurontin 100 mg p.o. b.i.d. 5. Latanoprost eye drops. 6. Cyanocobalamin 1000 mcg once a day. 7. Naprosyn 500 mg p.o. q.8 hours. 8. Polyethylene glycol p.r.n. 9. Nexium 40 mg once a day. 10. Aspirin 81 mg once a day. 11. Citalopram 30 mg once a day. 12. Metformin 500 mg once a day. ALLERGIES TO MEDICATIONS: Reported as PENICILLIN and BEE VENOM. FAMILY HISTORY: Significant for cardiac disease, cancer. No known family history of stroke. There is family history of diabetes. SOCIAL HISTORY: The patient smoked in the past, but is currently vaping. She does not abuse alcohol. No use of illicit drugs. She is single and lives alone. REVIEW OF SYSTEMS: She denies personal history of stroke, cancer, vomiting up blood, coughing up blood, bright red blood per rectum, bleeding stomach ulcers, renal calculi, cholelithiasis. She was told she had a spongy bladder in the past. She denies asthma, emphysema, pneumonia, tuberculosis, sleep apnea. She has diabetes. She has hypertension. She denies prior [place] or other cardiac issues including cardiac surgery. She denies lupus, psoriasis, seizures, Parkinson's disease, myasthenia gravis, liver disorders, blood clots. All other review of systems are negative x14 except as per this EHR. PHYSICAL EXAM: Height 5 feet 3 inches, weight 185 pounds, temperature 98.2 degrees Fahrenheit, pulse ranges from 92 to 105, blood pressure 116/61. On general exam, she is a pleasant lady, in no acute distress. She does appear to have some stigmata of mental challenge. HEENT shows the cranium is normocephalic and atraumatic. She has moist mucosal membranes. Neck veins are not distended. There are no carotid bruits. Visible skin warm and perfused. Affect appropriate. She appears oriented. No significant kyphoscoliosis on back exam. Lungs are clear to auscultation. No wheezes. No rales. Cardiac Exam: S1, S2. Regular rate. Soft holosystolic murmur heard without radiation. There is no rub or gallop. PMI is nondisplaced. Abdomen: Soft and nondistended, appears benign. Extremities without significant edema. Pulses appear grossly intact. DIAGNOSTIC STUDIES/LAB DATA: A 12-lead EKG is reviewed on 12/22/18 at 12:48, which shows sinus tachycardia with IVCD, atypical left bundle branch block; consider anterolateral infarct, timing unknown. Since prior EKG completed 08/18, previously normal EKG described. Sodium 139, potassium 3.8, chloride 107, bicarbonate 26, BUN 11, creatinine 0.58. ALT 14. Troponin 0.03. White blood cell count 7.1, hematocrit 38, platelet count 390. D-dimer 453. IMPRESSION: Ms. Clifton is a 58-year-old woman with no known cardiac history, with atypical chest pain. Myocardial infarction is being ruled out. She was found to have new cardiomyopathy with ejection fraction on echocardiogram of 25 % to 30% (new since 2017). She does appear to be euvolemic. RECOMMENDATIONS: 1. Agree with medical optimization including aspirin, Coreg, lisinopril, Aldactone, and statin therapy. 2. Plan for risk stratification with cardiac chemical nuclear rest/stress scan once rule out [place] protocol completed. 3. We would discontinue Naprosyn. Agree with rule out PE given elevated D- dimer and atypical chest pain symptoms. 4. Follow electrolytes closely with keeping magnesium 2 to 2.5 and potassium 4 to 5.0. 5. Avoid zolmitriptan and other vasoconstrictive agents. 6. Other per Mr. Ding of with whom the case was discussed. The patient is in agreement with these recommendations. Dear Mr. Ding, many thanks for this kind cardiac consultation opportunity. Please do not hesitate to contact me if you have any questions or concerns regarding the patient's cardiovascular consultative care. [id number]/CPS #: [id number] MTDD
--- NOTE | 2018-12-22 17:23 | HP ---
CC: Dr. Criss Lau; Dr. Danny Melchor * ADMISSION HISTORY AND PHYSICAL: DATE OF ADMISSION: 12/22/18 PRIMARY CARE PROVIDER: Dr. Criss Lau. MY ATTENDING WHILE IN THE HOSPITAL: Dr. Mandy Davies.* (DICTATED BY PRECIOUS TANNER) CONSULTING ELECTROLYSIS OPERATOR: Dr. Danny Melchor. CHIEF COMPLAINT: Difficulty breathing. HISTORY OF PRESENT ILLNESS: Ms. Clifton is a 58-year-old female with a past medical history significant for diabetes, hypertension, hyperlipidemia, who presented to the emergency department after, in her words, she has been having shortness of breath for 2 years, which has been getting progressively worse and reached its peak last night. The patient states at that time she was having chest pain, which lasted for about an hour, it was sharp, localized in the left side of her chest, was worse with lying flat, worse with deep breath. Of note, she had not imparted these particular historical details to any other provider who had seen her previously and her story did change significantly. She is a poor historian. The patient states she is not able to walk more than 10 feet without being limited by shortness of breath. The patient has never had a heart attack in the past that she knows. The patient denies fevers, chills, nausea, vomiting, sick contacts and no recent changes in her medication, no recent swelling in her legs. The patient has gained approximately 12 pounds, she cannot quantify over which time frame. The patient has not had any recent immobilization, but as above she has very limited exercise capacity. The patient has no history of blood clots, recent long travel or travel outside the country. The patient has not taken any joep-ine-effxjre painkillers recently or other changes to medications. The patient does not check her blood sugar, but it feels that they have been in within good range through her primary care provider. The patient in the emergency department was found to have EKG with new left bundle branch block and an elevated troponin; however, after the patient was admitted to the hospital, this troponin was found to be a false positive on re-run. Due to concern for elevated troponin, chest pain and shortness of breath, we were asked to evaluate the patient for admission to the hospital. PAST MEDICAL HISTORY: Diabetes mellitus type 2, hypertension, hyperlipidemia, migraines, GERD, depression. PAST SURGICAL HISTORY: Cholecystectomy, ulnar release, right hand surgery x2, laparotomy. MEDICATIONS: 1. Amlodipine 2.5 mg p.o. daily. 2. Aspirin 81 mg p.o. daily. 3. Lipitor 20 mg p.o. daily. 4. Citalopram 20 mg p.o. daily. 5. Esomeprazole 40 mg p.o. daily. 6. Gabapentin 100 mg p.o. b.i.d. 7. Metformin ER 500 mg p.o. daily. 8. Zomig 5 mg p.o. daily. 9. B12 1000 units p.o. daily. 10. Naproxen 500 mg p.o. t.i.d. as needed. ALLERGIES: PENICILLIN, BEES. FAMILY HISTORY: The patient's father had cancer. The patient's mother of heart disease. The patient has a brother, who of heart disease and 2 siblings are healthy. SOCIAL HISTORY: The patient vapes and had smoked up until recently, she cannot quantify her pack year history. The patient does not drink alcohol or use illicit drugs. 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 The patient's surrogate decision maker will be her sister, Yuly Dejesus. REVIEW OF SYSTEMS: A 10-point review of systems was reviewed with the patient and is negative except as above in the HPI. PHYSICAL EXAMINATION GENERAL: The patient is a 58-year-old female, who appears stated age and sitting comfortably in the bed, in no acute distress. VITAL SIGNS: At the time of evaluation, temperature 98.2, pulse rate 105, respiratory rate 20, oxygen saturation 94% on room air, blood pressure 116/61. HEENT: Head: Normocephalic, atraumatic. Sclerae anicteric. No conjunctival injection. Nasal mucosa moist. Oral mucosa moist. No pharyngeal erythema, discharge, or exudate. NECK: Supple, nontender. No lymphadenopathy. No carotid bruits auscultated. No JVD. RESPIRATORY: Clear to auscultation bilaterally. No wheezes, rales, or rhonchi. Good air exchange bilaterally. CARDIAC: Tachycardic. No clicks, murmurs, gallops, or rubs. Pulses are 2+ in the bilateral dorsalis pedis, posterior tibialis, and radial areas. 1+ bilateral lower extremity edema noted. ABDOMEN: Soft, nontender, nondistended. Bowel sounds present and normoactive in all 4 quadrants. No hepatosplenomegaly. No abdominal bruits auscultated. No hepatojugular reflux. GENITOURINARY: No suprapubic or CVA tenderness. NEUROLOGIC: Cranial nerves II through XII intact. No focal deficits. Alert and oriented x3. PSYCHIATRIC: Pleasant and cooperative. SKIN: Clean, dry, and intact. No rash. DIAGNOSTIC STUDIES/LAB DATA: White blood cell count 7.1, hemoglobin 12.3. INR 1.03, APTT 38.7, D-dimer 453. Sodium 139, potassium 3.8, chloride 107, carbon dioxide 26, anion gap 6, BUN 11, creatinine 0.58, glucose 101, calcium 9.3. Bilirubin 1.3, AST 15, ALT 14, alkaline phosphatase 155. Troponin-I 0.03. BNP 248. Protein 7.2, albumin 3.7, globulin 3.5. Studies: EKG shows right axis deviation, ST segment depression in lead III, aVF with T-wave inversion, S-wave in lead 1, incomplete left bundle branch block, slight ST segment elevation in aVL. Larger ST segment elevation in V1, V2, V3, V4, V5 and V6. Poor R-wave progression across the precordium. Compared to previous exam, incomplete left bundle branch is new, right axis deviation is new , poor R- wave progression is new, T-wave inversion in III is new. Chest x-ray read as no acute cardiopulmonary disease. Transthoracic echocardiogram read as cavity size mildly dilated, wall thickness is normal, systolic function is severely reduced, EF 20% to 25%, severe diffuse hypokinesis, bases move best, left atrium is mildly dilated, mitral valve moderate regurgitation. The ascending aorta is mildly dilated. Pulmonary artery pressures are normal. Right ventricle systolic function is low normal. ASSESSMENT AND PLAN: Impression: Ms. Clifton is a 58-year-old female with past medical history significant for diabetes mellitus type 2, hypertension, hyperlipidemia, known history of myocardial infarction, who presents to the emergency department with 1 hour worth of chest pain last night and approximately 2 years of worsening shortness of breath, worse last night. The patient in the emergency department was found to have a false positive troponin , but on echocardiogram had severely depressed EF and admitted to the hospital for evaluation for ischemia and optimization of heart failure regimen. 1. Chest pain. The patient's chest pain lasted for 1 hour, it is pleuritic and sharp on the left side associated with shortness of breath. This story is concerning for pulmonary embolism and this will be ruled out with a CTA of the chest given the patient's low EF. It is possible the patient is having a current myocardial infarction and troponins will be trended. The patient will have repeat EKG in the morning. The patient was seen in consultation by Dr. Melchor of Cardiology. The patient will have lipid profile and hemoglobin A1c drawn. The patient is already on aspirin and statin, this will be adjusted as needed. The patient should have an ischemic evaluation at some point. The patient has severely limited functional status at this time likely related to her heart failure. The patient is currently chest pain free. 2. Severe cardiomyopathy. The patient has an EF of approximately 20% to 25%. The patient will be admitted to the hospital. We will have her heart failure regimen optimized if her blood pressure will allow. The patient should have an ischemic evaluation either inpatient or outpatient per Cardiology. The patient will not be started on heparin drip at this time. 3. The patient will have an EARLE inhibitor, beta sridhar and possibly spironolactone added. The patient may need a LifeVest given her significantly depressed EF. 4. Diabetes mellitus type 2. We will continue the patient's metformin inpatient for now and we will monitor blood sugars and add on sliding scale insulin if indicated. Update Hemoglobin A1c. 5. Hypertension. We will likely hold the patient's amlodipine to allow for optimization of heart failure regimen, though this will be likely started tomorrow morning after the patient's pulmonary embolism is ruled out. 6. Hyperlipidemia. Continue simvastatin. Update lipid profile. 8. FEN: The patient will have a heart healthy diet without caffeine. Fluids not indicated. 9. Disposition: The patient admitted inpatient to the hospital. TIME SPENT: Approximately 60 minutes were spent on this admission, 30 of which was spent [id number] with the patient obtaining history and physical and discussing treatment plan. This plan has been discussed with my attending, Dr. Mandy Davies, and she is in agreement. PRECIOUS TANNER [id number]/[facility] #: [id number] EBENEZER
[2018-12-22] MEDS ORDERED: Metoprolol Tartrate TAB* 25 MG PO SCH (17:33)
[2018-12-22] MEDS: Atorvastatin* 20 MG TAB PO SCH (17:49)
[2018-12-22] MEDS: Lisinopril TAB* 5 MG PO SCH (17:50)
[2018-12-22 17:51] LABS: HDL Cholesterol 68.6 mg/dL
[2018-12-22 17:53] LABS: Troponin I 0.02 ng/mL (<0.04)
[2018-12-22] MEDS: Carvedilol TAB* 6.25 MG PO SCH (18:22)
[2018-12-22] MEDS: Acetaminophen TAB* 325 MG PO PRN (19:16)
[2018-12-22] MEDS: Latanoprost 0.005%* 2.5 ml BTL BOTH EYES SCH (19:21)
[2018-12-22] MEDS: Gabapentin CAP(*) 100 MG PO SCH (21:11)
--- NOTE | 2018-12-23 00:07 | PN ---
Hospitalist Progress Note Date of Service: 12/23/18 HOSPITALIST ADDENDUM Called by RN because patient is c/o chest pain. Mrs Clifton is a 58yo F with PMH of type 2 DM, HTN, HLD, migraines, GERD, depression, tobacco abuse, who presented to ED with c/o CP and dyspnea. Serial troponins were negative as well as CTA chest. Echocardiogram showed EF 20-25%, with severe diffuse hypokinesis. Evaluated at bedside. She states this chest pain has been present since she came to ED earlier yesterday, 06/22, no radiation. HR 69 RR 14 BP 120/65 CVS: normal S1 and S2, RRR Chest: BS+ bilaterally with no added sounds. CP is reproducible on palpation of left sided ACW. EKG shows SR @ 76bpm, with IVCD. ST segment analysis is limited due to IVCD. Troponin is negative x 4. Suspect this chest pain episode is musculoskeletal in nature.
[2018-12-23] MEDS: Nitroglycerin TAB 0.4 MG* 0.4 MG TAB SL PRN ×3 (00:16→00:41)
[2018-12-23] MEDS: Acetaminophen TAB* 325 MG PO PRN (03:21)
[2018-12-23 06:32] LABS: ABS Basophils 0.1 10^3/ul (0-0.2); ABS Eosinophils 0.4 10^3/ul (0-0.6); ABS Lymphocytes 1.9 10^3/ul (1.0-4.8); ABS Monocytes 0.7 10^3/ul (0-0.8); ABS Neutrophils 3.4 10^3/ul (1.5-7.7); Eosinophil % 6.1 %; Hematocrit 35 % (35-47); Hemoglobin 11.1 g/dL (12.0-16.0); Lymphocyte % 29.2 %; Mean Corpuscular HGB Conc 32 g/dL (31-36); Mean Corpuscular Hemoglobin 25 pg (27-31); Mean Corpuscular Volume 78 fL (80-97); Mean Platelet Volume 8.2 fL (7.4-10.4); Nucleated Red Blood Cells % 0.1; Platelet Count 373 10^3/uL (150-450); Red Blood Count 4.42 10^6 /uL (3.70-4.87); Red Cell Distribution Width 18 % (10-15); White Blood Count 6.4 10^3/uL (3.5-10.8)
[2018-12-23 06:56] LABS: BUN/Creatinine Ratio 23.1 (8-20); EGFR African American 113.3 (>60); EGFR Non-African American 93.6 (>60); Magnesium 1.9 mg/dL (1.9-2.7)
[2018-12-23 06:58] LABS: Troponin I 0.01 ng/mL (<0.04)
[2018-12-23] MEDS: Gabapentin CAP(*) 100 MG PO SCH (07:51)
[2018-12-23] MEDS ORDERED: Citalopram TAB* 10 MG PO SCH (09:00)
[2018-12-23] MEDS ORDERED: Cyanocobalamin TAB* 500 MCG PO SCH (09:00)
[2018-12-23] MEDS ORDERED: Aspirin EC TAB* 81 MG TAB.EC PO SCH (09:00)
[2018-12-23] MEDS ORDERED: Pantoprazole TAB * 40 MG TAB PO SCH (09:00)
[2018-12-23] MEDS ORDERED: metFORMIN* 500 MG TAB PO SCH (09:00)
[2018-12-23] MEDS ORDERED: Aminophylline IV* 25 MG/ML 10 ML VIAL ONE (12:34)
[2018-12-23] MEDS ORDERED: Regadenoson* 0.4 MG/5 ML SYRINGE ONE (12:34)
[2018-12-23] MEDS: Carvedilol TAB* 6.25 MG PO SCH (16:41)
[2018-12-23] MEDS: Lisinopril TAB* 5 MG PO SCH (16:42)
[2018-12-23] MEDS: Atorvastatin* 20 MG TAB PO SCH (16:50)
[2018-12-23] MEDS: Latanoprost 0.005%* 2.5 ml BTL BOTH EYES SCH (16:50)
[2018-12-23 18:20] LABS: TSH (Thyroid Stimulating Horm) 2.21 mcIU/mL (0.34-5.60)
[2018-12-23 18:42] VITALS: BP 140/86
--- NOTE | 2018-12-24 02:47 | DS ---
CC: Dr. Criss Lau; Dr. Danny Melchor * DISCHARGE SUMMARY: DATE OF ADMISSION: 12/22/18 DATE OF DISCHARGE: 12/23/18 PRIMARY CARE PROVIDER: Dr. Criss Lau. ATTENDING PHYSICIAN: Dr. Danitza Lo.* (DICTATED BY DIANA HIDALGO NP) PRIMARY DIAGNOSES: 1. Nonischemic cardiomyopathy, ejection fraction 20% to 25%. 2. Chest pain. SECONDARY DIAGNOSES: 1. Diabetes mellitus type 2. 2. Hypertension. 3. Hyperlipidemia. 4. Gastroesophageal reflux disease. 5. Depression. STUDIES WHILE IN THE HOSPITAL: 1. EKG on 12/22/18 showed normal sinus rhythm with a rate of 76, intraventricular conduction delay, Q-waves in lateral leads. 2. Chest x-ray on 12/22/18 reads as no evidence for active cardiopulmonary disease. 3. Transthoracic echocardiogram on 12/22/18, reads as the left ventricular cavity size is mildly dilated. Wall thickness is normal. Systolic function is severely reduced by visual assessment. The estimated ejection fraction is 20% to 25%. Severe diffuse hypokinesis. Bases move best. The left atrium is mildly dilated. There is [id number] mitral regurgitation. The ascending aorta is mildly dilated. There is no prior echocardiogram to compare. 4. Chest and thorax CTA on 12/22/18 reads as no pulmonary arterial filling defect to suggest pulmonary embolism. Mild pulmonary interstitial edema with small bilateral pleural effusion. 5. EKG on 12/23/18 reads as normal sinus rhythm with a rate of 67, QTc 479. 6. Nuclear cardiac stress test on 12/23/18 reads as dilated left ventricle with severe dysfunction, with estimated ejection fraction of only 32%. Probable small apical infarct. No compelling evidence for stress-induced ischemia. Assessment is high-risk based on nuclear portion. HISTORY OF PRESENT ILLNESS AND HOSPITAL COURSE: Ms. Clifton is a 58-year-old female with a past medical history of diabetes, hypertension, hyperlipidemia, migraines, GERD, and depression, who presented to the emergency room on with complaints of shortness of breath. Please see the history and physical by PRECIOUS Mancia, for a complete summary of the events leading up to this hospitalization. In short, the patient reported progressive shortness of breath and was having some associated chest pain. She was having difficulty with her mobility due to shortness of breath and had a limited exercise tolerance. In the emergency room, the patient was found to have a new left bundle-branch block. Initially troponin was noted to be elevated, though this was a false positive and troponin was actually negative, though due to the concern for her chest pain, she was admitted by the hospitalist service. The patient was ruled out for PE. She did have an echocardiogram with results noted above and due to her decreased ejection fraction, Cardiology was consulted. The patient was seen by Dr. Melchor on 12/22/18, at which point he felt that this was direct customer service representative of a new cardiomyopathy with decreased ejection fraction, though he felt that the patient was euvolemic. He recommended placing the patient on aspirin, Coreg, lisinopril, Aldactone, and statin therapy, and arranging a stress test. He recommended stopping naproxen and triptan. The patient did have an episode of chest pain overnight though that resolved and this morning has not had any further incidence of chest pain, though does note some epigastric discomfort. She did undergo a nuclear stress test today with results noted above. The stress test was noted to be high risk due to decreased ejection fraction, although there is no evidence of ischemia. The patient was seen today by Dr. Ordoñez from Cardiology who felt that the patient was stable for discharge on appropriate medications and with appropriate followup. He did not feel as though the patient would need a LifeVest, as this cardiomyopathy was deemed nonischemic. I did have a long talk with the patient and her family members about this new diagnosis and treatment going forward. The patient seemed to be understanding of this diagnosis though does seem to have some degree of developmental delay and it is unclear how much she actually understands and if she understands the seriousness and severity of her new diagnosis. She reports feeling generally well and is anxious to return home. She has been up ambulating to the bathroom without difficulty and has not had any further shortness of breath. On exam, she has no focal neurological deficits. She is alert and oriented x4. Her heart has a regular rate and rhythm, without murmurs, rubs or gallops. Lungs are clear to auscultation, without rhonchi, wheezes, or rubs. There is no edema. Physical exam is otherwise benign. Ms. Clifton is stable for discharge today. Vital signs are as follows: Temp 97.9, heart rate 85, respiratory rate 14, oxygen saturation 99% on room air, blood pressure 120/64. DISCHARGE MEDICATIONS: New medications: 1. Carvedilol 6.25 mg p.o. b.i.d. 2. Lisinopril 2.5 mg p.o. daily. Changed medications: 1. Atorvastatin 40 mg p.o. daily (previously 20 mg daily). Continued medications: 1. Aspirin 81 mg p.o. daily. 2. Citalopram 30 mg p.o. daily. 3. Vitamin B12, 1000 mcg p.o. daily. 4. Esomeprazole 40 mg p.o. daily. 5. Gabapentin 100 mg p.o. b.i.d. 6. Latanoprost 0.005%, one drop to both eyes daily. 7. Metformin ER 500 mg p.o. daily. 8. MiraLAX 17 g p.o. daily p.r.n. constipation. 9. EpiPen 0.3 mg IM once, p.r.n. allergy symptoms. Discontinued medications: 1. Naproxen. 2. Zolmitriptan. 3. Amlodipine. DISCHARGE PLAN: Ms. Clifton will be discharged home. Activity will be as tolerated. Diet will be heart healthy. Medications are as noted above. The patient has been started on carvedilol and lisinopril for her new nonischemic cardiomyopathy. I did double her dose of atorvastatin as LDL was noted to be 82 and that ideally would be below 70. Amlodipine has been discontinued as the patient's blood pressure will not tolerate this with the addition of carvedilol and lisinopril. I will note that Cardiology did recommend spironolactone, although at this point I have not placed the patient on spironolactone as I do not think her blood pressure will tolerate it since her systolics have been in the 100s to 110s for the most part. Per cardiology recommendation, the patient should no longer take naproxen or zolmitriptan due to negative cardiovascular effects. She can continue her other usual medications as noted above. She will need close followup and should see her PCP in the next 4 to 7 days. She will also need to follow up with Dr. Melchor from Cardiology, which I would recommend in the next 1 to 2 weeks. She has been advised to return to the emergency room or nearest hospital for any worsening of symptoms, shortness of breath, lightheadedness, dizziness, chest discomfort, high fever, chills, night sweats, loss of consciousness or any other worrisome signs or symptoms. DISCHARGE CONDITION: Stable. DISCHARGE DISPOSITION: Home. This is a summarized report of a complex medical history and hospital stay. For further details, please see the entire medical record. TIME SPENT: Approximately 50 minutes were spent on this discharge. DIANA HIDALGO, LORRIE [id number]/[facility]PS #: [id number] EBENEZER
[2018-12-24] MEDS ORDERED: Influenza VAC *QUAD* 2019-20* 0.5 ML SYRINGE IM ONE (09:00)
== END 2018-12-23 19:30 | disposition home or self-care (01) | DRG 316 ==
LOC: ED 12:49 → MEDTELE 15:02
PROVIDERS: ADMIT Internal Medicine; ATTEND Internal Medicine
DX: I42.8 Other cardiomyopathies (principal); E11.9 Type 2 diabetes mellitus without complications; I10 Essential (primary) hypertension; I25.10 Atherosclerotic heart disease of native coronary artery without angina pectoris; E78.5 Hyperlipidemia, unspecified; K21.9 Gastro-esophageal reflux disease without esophagitis; F32.9 Major depressive disorder, single episode, unspecified; I44.7 Left bundle-branch block, unspecified; F17.290 Nicotine dependence, other tobacco product, uncomplicated; G43.909 Migraine, unspecified, not intractable, without status migrainosus; Z79.84 Long term (current) use of oral hypoglycemic drugs; Z79.82 Long term (current) use of aspirin; Z79.899 Other long term (current) drug therapy; Z88.0 Allergy status to penicillin; Z91.030 Bee allergy status; Z80.9 Family history of malignant neoplasm, unspecified; Z82.49 Family history of ischemic heart disease and other diseases of the circulatory system; Z83.3 Family history of diabetes mellitus
CPT/HCPCS: 36415; 71045; 71275; 78452; 80048; 80053; 80061; 83036; 83735; 83880; 84443; 84484; 85025; 85379; 85610; 85730; 93005; 93017; 93306; 99284; A9270-GY; A9502; C8929; J0280; J2785; Q9967

== ENCOUNTER 2018-12-26 15:19 | Emergency (ER) | payer MEDICARE ==
--- OUTSIDE RECORDS SUMMARY | 2018-12-26 15:50 | XMS REPORT | Continuity of Care Document ---
:1960 External Reference #:[id number] Author Name Criss Lau M.D. (transmitted by agent of provider Gladys Don) Address [address], [place] [address] Care Team Providers Name Role Phone Criss Lau MD - Internal Care Team Information Loan Inspector Medicine Luda Craig MD - Obstetrics & Care Team Information Loan Inspector [phone] Gynecology carissa-Diana Betancourt M.D. - Single Care Team Information Loan Inspector [phone] [facility] - Mental Care Team Information Loan Inspector [facility] - Clinic/Center Care Team Information Loan Inspector [phone] Roland Rey MD - Care Team Information Loan Inspector [phone] Otolaryngology Problems Active Problems Provider Date Type [...] Denies alcohol use Tobacco Use Start: Unknown End: Patient is a former Unknown smoker Smoking Status Reviewed: 09/13/19 Patient is a former smoker Exercise Does not exercise Type/Frequency Allergies, Adverse Reactions, Alerts Active Allergies Reaction Severity Comments Date Penicillin swelling 11/02/2009 Bee Sting 11/02/2009 Losartan cough 07/25/2015 Lisinopril cough 07/25/2015 Medications Active Medications SIG Qnty Indications Ordering Provider Date Atorvastatin Calcium 1 [facility] day M.D. 40mg Tablets Carvedilol 1 by mouth twice 180tabs [facility], 12/24/2018 6.25mg a day M.D. Tablets Lisinopril 1 by mouth every 90tabs [facility], 12/24/2018 2.5mg day M.D. Tablets Ferrous Gluconate take 1 tablet by 30tabs D50.9 [facility], 2018 mouth once daily M.D. 324(38Fe) mg Tablets i Esomeprazole Take One Capsule 90caps [facility], 06/04/2018 Magnesium By Mouth Every M.D. 40mg Capsules Day DR Lobo Chair For daily use Dx 1units R26.81 [facility], 08/27/2017 r 26.81 M.D. Vitamin B12 1 by mouth every 30tabs R26.81 [facility], 02/11/2017 1000mcg day M.D. Tablets ER Walker 4 wheels, 1units R26.81 [facility], 01/11/2017 [facility] brakes, seat and M.D. basket. r26.81 G62.9 Miralax 17 gm every day 510units R10.13 [facility], 11/17/2015 3350NF Powder mixed w/ 8 oz M.D. water/juice as needed Gabapentin Take One Capsule By 90caps E11.40 [facility], 02/25/2015 100mg Mouth Twice A Day M.D. Capsules Epipen 2-Clifford for use as directed 1units [facility], 02/15/2015 M.D. 0.3mg/0.3ML Solution Auto-Inject Aspirin 1 by mouth once 90tabs [facility], 12/16/[address] daily M.D. Citalopram take one tablet by 135tabs [facility], 11/28/2011 Hydrobromide mouth once daily M.D. 20mg Tablets Metformin HCL ER Take One Tablet By 90tabs Criss Lau, 08/30/2011 500mg Mouth Every Day M.D. Tablets ER 24HR Latanoprost Instill 1 Drop Into Brittaney Altmairano, 0.005% Both Eyes AT Bedtime O.D. Solution History Medications Albuterol Sulfate inhale 2 puffs by 8.500gm R06.02 Ingrid Macedo, 2018 - HFA mouth every 4 to DO 12/22/2018 108(90Base) 6 hours if needed mcg/Act Aerosol Ferrous Gluconate take 1 tablet by 60tabs D50.9 Criss Sid, 2018 - mouth once daily M.D. 08/29/2018 324(38Fe) mg if tolerated take Tablets twice daily Medications Administered in Office Medication SIG Qnty Indications Ordering Provider Date Depomedrol 40MG Roberta Blackwood M.D. 03/20/2017 Injection Depomedrol 40MG Roberta Blackwood M.D. 05/21/2016 Injection Depomedrol 80MG Roberta Blackwood M.D. 07/29/2014 Injection Immunizations CPT Code Status Date Vaccine Lot # [id number] Given 01/17/2018 Influenza Virus Vaccine, Quadrivalent, Split, [id number] Preservative Free 79990 Given 02/16/2016 Influ Virus Vaccine, Quadrivalent, Split Virus, [id number] [address] Given 01/21/2015 Influenza Virus Vaccine, Quadrivalent, Split, [id number] Preservative Free 77712 Given 01/24/2014 Flu Vaccine Split Virus Preservative Free For Indiv 3Yr Older 23476 Given 11/28/2011 Pneumonia Vaccine [id number] Given 03/21/2011 Afluria Vaccine [id number] 99284 Given 12/30/2009 Influenza Virus 3Yrs & Over 48714 Given 02/28/2009 Influenza Virus Vaccine, Pandemic Formulation 23532 Given 02/24/2009 Influenza Virus 3Yrs & Over 68946 Given 02/26/2008 Influenza Virus 3Yrs & Over 42587 Given 02/26/2008 Influenza Virus 3Yrs & Over 77655 Given 03/13/2007 Influenza Virus 3Yrs & Over 66608 Given 03/13/2007 Influenza Virus 3Yrs & Over 61344 Given 02/22/2006 Influenza Virus 3Yrs & Over Vital Signs Date Vital Result Comment 12/26/2018 1:59pm Height 63 inches 5'3" Weight 182.00 lb Heart Rate 70 /min BP Systolic 99 mmHg BP Diastolic 62 mmHg O2 % BldC Oximetry 98 % BMI (Body Mass Index) 32.2 kg/m2 12/22/2018 11:08am Height 63 inches 5'3" Weight 184.00 lb Heart Rate 102 /min BP Systolic 136 mmHg BP Diastolic 80 mmHg Body Temperature 98.1 F O2 % BldC Oximetry 95 % BMI (Body Mass Index) 32.6 kg/m2 Results Test Date Facility Test Result H/L Range Note Order 12/26/2018 [employer] In-House EKG <pending> Laboratory test 12/22/2018 [facility] Troponin-I 0.03 ng/mL < 0.04 [address] (TnI) [place] [address] [phone] B-Type Natriuretic Peptide BNP 248 pg/mL High <=100 Comp Metabolic 12/22/2018 [facility] Sodium 139 mmol/L Normal 135-[address] [place] [address] [phone] Potassium 3.8 mmol/L Normal 3.5-5.0 Chloride 107 mmol/L Normal 101-111 Co2 Carbon Dioxide 26 mmol/L Normal 22-32 Anion Gap 6 mmol/L Normal 2-11 Glucose 101 mg/dL High 70-100 Blood Urea Nitrogen 11 mg/dL Normal 6-24 Creatinine 0.58 mg/dL Normal 0.51-0.95 BUN/Creatinine Ratio 19.0 Normal 8-20 Calcium 9.3 mg/dL Normal 8.6-10.3 Total Protein 7.2 g/dL Normal 6.4-8.9 Albumin 3.7 g/dL Normal 3.2-5.2 Globulin 3.5 g/dL Normal 2-4 Albumin/Globulin Ratio 1.1 Normal 1-3 Total Bilirubin 1.30 mg/dL High 0.2-1.0 Alkaline Phosphatase 155 U/L High 34-104 Alt 14 U/L Normal 7-52 Ast 15 U/L Normal 13-39 Egfr Non- 106.8 >60 Egfr 129.2 >60 2 CBC Auto 12/22/2018 [facility] White Blood 7.1 10^3/uL Normal 3.5-10.[address] [place] [address] [phone] Red Blood Count 4.86 10^6/uL Normal 3.70-4.87 Hemoglobin 12.3 g/dL Normal 12.0-16.0 Hematocrit 38 % Normal 35-47 Mean Corpuscular Volume 78 fL Low 80-97 Mean Corpuscular Hemoglobin 25 pg Low 27-31 Mean Corpuscular HGB Conc 33 g/dL Normal 31-36 Red Cell Distribution Width 18 % High 10-15 Platelet Count 390 10^3/uL Normal 150-450 Mean Platelet Volume 8.3 fL Normal 7.4-10.4 Abs Neutrophils 4.6 10^3/uL Normal 1.5-7.7 Abs Lymphocytes 1.5 10^3/uL Normal 1.0-4.8 Abs Monocytes 0.6 10^3/uL Normal 0-0.8 Abs Eosinophils 0.2 10^3/uL Normal 0-0.6 Abs Basophils 0.1 10^3/uL Normal 0-0.2 Abs Nucleated RBC 0.0 10^3/uL Granulocyte % 65.5 % Lymphocyte % 21.1 % Monocyte % 9.0 % Eosinophil % 3.3 % Basophil % 1.1 % Nucleated Red Blood Cells % 0.0 Laboratory test 12/22/2018 [facility] Partial 38.7 High 26.0- 38.[address] [place] [address] PTT [phone] D Dimer Quantitative 453 ng/mL High Less Than 230 3 Inr/Protime 12/22/2018 [facility] Inr 1.03 Normal 0.82-1.[address] [place] [address] [phone] CBC Auto Diff 11/22/2018 [facility] White Blood 7.0 Normal 3.5 -10.[address] Count 10^3/[place] [address] [phone] Red Blood Count 4.71 10^6/uL Normal 3.70-4.87 [...] Blood Cells % 0.1 Laboratory test 11/22/2018 [facility] Hemoglobin A1c 6.5 % High 4.0-5.6 [address] (Glyco HGB) [place] [address] [phone] Comp Metabolic 11/22/2018 [facility] Sodium 139 Normal 135- [address] mmol/[place] [address] [phone] Potassium 4.2 mmol/L Normal 3.5-5.0 Chloride 105 [...] Egfr Non- 116.0 >60 Egfr 140.3 >60 6 CBC Auto 08/22/2018 [facility] White Blood 6.1 10^3/uL Normal 3.5-10.[address] [place] [address] [phone] Red Blood Count 5.33 10^6/uL High 3.70-4.87 [...] % 0.1 Iron & Iron Binding 08/22/2018 [facility] Iron 88 g/dL Normal 50-[address] [place] [address] [phone] Unsaturated Iron Binding < 404 g/dL Total Iron Binding Capacity 419 g/dL Normal 250-450 Transferrin 299 mg/dL Normal 203-362 % Iron Saturation 21 % Normal 15-55 Laboratory test 08/22/2018 [facility] B-Type 50 pg/mL <=[address] [place] [address] Peptide BNP [phone] Liver Function 08/22/2018 [facility] Total Protein 7.5 g/dL Normal 6.4-8.[address] [place] [address] [phone] Albumin 4.0 g/dL Normal 3.2-5.2 Globulin 3.5 g/dL Normal 2-4 Albumin/Globulin Ratio 1.1 Normal 1-3 Total Bilirubin 1.30 mg/dL High 0.2-1.0 Direct Bilirubin 0.20 mg/dL High 0.03-0.18 Indirect Bilirubin 1.1 mg/dL High 0.3-1.0 Alkaline Phosphatase 122 U/L High 34-104 Alt 14 U/L Normal 7-52 Ast 13 U/L Normal 13-39 Laboratory test 08/22/2018 [facility] Pathologist Review (SEE NOTE) 7 finding [address] [place] [address] [phone] Lipid Profile 07/11/2018 [facility] Triglycerides 138 mg/dL 8 (Trig/Chol/HDL) [place] [address] [phone] Cholesterol 153 mg/dL 9 HDL Cholesterol 73.9 mg/dL 10 LDL Cholesterol 52 mg/dL 11 Comp Metabolic 07/11/2018 [facility] Sodium 138 mmol/L Normal 135-145 Panel [address] [place] [address] [phone] Potassium 4.2 mmol/L Normal 3.5-5.0 Chloride 106 [...] Egfr Non- 116.0 >60 Egfr 140.3 >60 12 Laboratory test 07/11/2018 [facility] Hemoglobin A1c 6.0 % High 4.0-5.6 13 finding 101 (Glyco HGB) [place] [address] [phone] Urine 07/11/2018 [facility] Ur Microalbumin < 15.[address] (mg/L) mg/[place] [address] [phone] Urine Creatinine 82.37 mg/dL Urine Microalbumin/Creatinine TNP <31 14 CBC Auto 07/11/2018 [facility] White Blood 6.9 10^3/uL Normal 3.5-10.[address] [place] [address] [phone] Red Blood Count 4.79 10^6/uL Normal 3.70-4.87 Hemoglobin 10.0 g/dL Low 12.0-16.0 Hematocrit 31 % Low 33-41 Mean Corpuscular Volume 65 fL Low 80-97 15 Mean Corpuscular Hemoglobin 21 pg Low 27-31 [...] % 0 Iron & Iron Binding 07/11/2018 [facility] Iron 24 g/dL Low 50-[address] [place] [address] [phone] Unsaturated Iron Binding < 465 g/dL Total Iron Binding Capacity 480 g/dL High 250-450 Transferrin 343 mg/dL Normal 203-362 % Iron Saturation 5 % Low 15-55 1 Verbal to [id number] by [id number] at 1446 on 12/22/18. Results read back accurately. Corrected Report. Result TnIDx:0.39 Called to [id number] at: 13:52:23 by:[id number] Read back by: [id number] CORRECTED REPORT --- Corrected on 12/22/18 1446 --- Troponin I previously reported as: 0.39 *C ng/mL Result TnIDx:0.39 Called to [id number] at: 13:52:23 by:[id number] Read back by: [id number] Troponin-I testing on Plasma Separator Tubes (PST) has a known false positive rate of 0.20-0.40%. All positive troponins reflex immediately to secondary confirmatory testing. Using the [facility] DxI 800 Access Immunoassay systems, the 99th percentile upper reference limit was demonstrated to be < 0.03 ng/mL. 2 Because ethnic data is not always [...] 5 Kidney failure <15 (or dialysis) 3 Please note: The following may produce a false positive D Dimer test: - Rheumatoid factor greater than 60 IU/ml - Plasma hemoglobin greater than 0.05 gm/dl - Bilirubin greater than 50 mg/dl - Lipids greater than 1000 mg/dl - FDP greater than 20 ug/ml 4 Standard intensity warfarin therapeutic range: 2.0-3.0 High intensity warfarin therapeutic range: 2.5-3.5 5 Therapeutic target for the treatment of diabetes mellitus patients is <7% HBA1C, and in selective patients <6.0%. Please refer to [place] [employer] diabetic care guidelines for further information. 6 Because ethnic data is not always [...] 5 Kidney failure <15 (or dialysis) 7 Mild microcytosis with limited RBC an elevated RDW. Differential diagnosis includes partially replete iron deficiency or less likely compensated hemoglobinopathy. Additional studies as clinically warranted. Reviewed by Dr. Villanueva 8 Desirable: <150 Borderline High: 150-199 High: 200-499 Very High: >500 9 Desirable: <200 Borderline High: 200-239 High: >239 10 Low: <40 Desirable: 40-60 High: >60 11 Desirable: <100 Near Optimal: 100-129 Borderline High: 130-159 High: 160-189 Very High: >189 12 Because ethnic data is not always readily [...] 15-29 5 Kidney failure <15 (or dialysis) 13 Therapeutic target for the treatment of diabetes mellitus patients is <7% HBA1C, and in selective patients <6.0%. Please refer to [place] [employer] diabetic care guidelines for further information. 14 Unable to calculate due to low microalbumin 15 Consistent with Previous Results Reported on 01/09/18 Procedures Date Code Description Status 12/26/2018 90944 EKG Tracing & Interpretation Completed 09/26/2018 [id number] Diabetic Retinal Eye Exam Completed 08/01/2018 [id number] Mammogram Completed 03/11/2018 [id number] Colonoscopy Completed 09/26/2017 [id number] Diabetic Retinal Eye Exam Completed 03/15/2017 [id number] Diabetic Retinal Eye Exam Completed 12/07/2016 [id number] Mammogram Completed 09/07/2016 [id number] Diabetic Retinal Eye Exam Completed 12/02/2015 [id number] Mammogram Completed 11/19/2014 [id number] Mammogram Completed 06/28/2014 [id number] Diabetic Retinal Eye Exam Completed 11/20/2013 [id number] Mammogram Completed 09/09/2013 [id number] Diabetic Retinal Eye Exam Completed 11/13/2012 [id number] Mammogram Completed 08/20/2012 [id number] Diabetic Retinal Eye Exam Completed 05/15/2012 [id number] Mammogram Completed 12/26/2011 [id number] Mammogram Completed 12/13/2011 [id number] Mammogram Completed 08/31/2010 [id number] Colonoscopy Completed 11/13/2007 [id number] Mammogram Completed 05/14/2007 [id number] Mammogram Completed 10/18/2006 [id number] Mammogram Completed 05/07/2003 [id number] Mammogram Completed Medical Devices Description No Information Available Encounters Type Date Location Provider Dx Diagnosis Office Visit 12/01/2018 [facility] Internal Criss Sid D64.9 Anemia, unspecified 8:40a Brandi Luna M.D. R74.0 Nonspec elev of levels of transamns & lactic acid dehydrgnse E11.9 Type 2 diabetes mellitus without complications Office Visit 10/07/2018 8:45a [facility] S. J32.9 [facility] Alvarado M.D. sinusitis, unspecified G43.009 Migraine w/o aura, not intractable, w/o status migrainosus G50.1 Atypical facial pain Office Visit 08/29/2018 8:40a [facility] Internal Criss D64.9 Anemia, Brandi Lau M.D. 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 mellitus with diabetic polyneuropathy D50.9 Iron deficiency anemia, unspecified I10 Essential (primary) hypertension Z12.31 Encntr screen mammogram for malignant neoplasm of breast R06.02 Shortness of breath Assessments Date Code Description Provider 12/26/2018 R07.9 Chest pain, unspecyo Lau M.D. 12/22/2018 R06.02 Shortness of breath Ingrid Macedo, 12/22/2018 F17.290 Nicotine dependence, other tobacco product, Ingrid Macedo, DO uncomplicated 12/01/2018 D64.9 Anemia, unspecified Criss Lau M.D. [...] Migraine without aura, not intractable, Jose Ahn, [employer] without status migra 07/18/2018 E11.42 Type 2 diabetes mellitus with diabetic Criss Lau M.D. polyneuropathy 07/18/2018 D50.9 Iron deficiency anemia, unspecified Criss Lau M.D. 07/18/2018 I10 Essential (primary) hypertension Criss Lau M.D. 07/18/2018 Z12.31 Encounter for screening mammogram for Criss Lau M.D. malignant neoplasm of 07/18/2018 R06.02 Shortness of breath Criss Lau M.D. Plan of Treatment Future Appointment(s):05/28/2019 1:20 pm - Criss Lau M.D. at [facility] Internal [facility]12/26/2018 - Criss Lau M.D.R07.9 Chest pain, unspecifiedComments:Sent to ER Functional Status Description No Information Available Mental Status Description No Information Available Referrals Refer to Reason for Referral Status Appt Date [facility] [address] [place] [address] [phone]
--- OUTSIDE RECORDS SUMMARY | 2018-12-26 15:50 | XMS REPORT | Continuity of Care Document ---
:1960 External Reference #:[id number] Author Name Danny Melchor M.D., [facility], [facility] (transmitted by agent of provider Arminda Taveras) Address [address] [place] [address] Care Team Providers Name Role Phone Criss Lau MD - Internal Care Team Information Traffic Ii Manager Medicine Luda Craig MD - Obstetrics & Care Team Information Traffic Ii Manager Gynecology NeerajDiana Betancourt M.D. - Single Care Team Information Traffic Ii Manager [facility] - Mental Care Team Information Traffic Ii Manager [phone] [facility] ENT - Clinic/Center Care Team Information Traffic Ii Manager [phone] Roland Rey MD - Care Team Information Traffic Ii Manager [phone] Otolaryngology Problems Active Problems Provider Date Type [...] a former Unknown smoker Smoking Status Reviewed: 12/22/18 Patient is a former smoker Exercise Does not exercise Type/Frequency Allergies, Adverse Reactions, Alerts Active Allergies Reaction Severity Comments Date Penicillin swelling 11/02/2009 Bee Sting 11/02/2009 Losartan cough 07/25/2015 Lisinopril cough 07/25/2015 Medications Active Medications SIG Qnty Indications Ordering Provider Date Atorvastatin [facility] 40mg Tablets Carvedilol 1 by mouth twice 180tabs [facility], 12/24/2018 6.25mg a day M.D. Tablets Lisinopril 1 by mouth every 90tabs [facility], 12/24/2018 2.5mg day M.D. Tablets Ferrous Gluconate take 1 tablet by 30tabs D50.9 [facility], 2018 mouth once daily M.D. 324(38Fe) mg Tablets i Esomeprazole Take One Capsule 90caps [facility], 06/04/2018 Magnesium By Mouth Every M.D. 40mg Capsules Day DR Lashell Erickson For daily use Dx 1units R26.81 [facility], 08/27/2017 r 26.81 M.D. Vitamin B12 1 by mouth every 30tabs R26.81 [facility], 02/11/2017 1000mcg day M.D. Tablets ER Walker 4 wheels, 1units R26.81 [facility]. r26.81 G62.9 Miralax 17 gm every day 510units R10.13 [facility], 11/17/2015 3350NF Powder mixed w/ 8 oz M.D. water/juice as needed Gabapentin Take One Capsule By 90caps E11.40 [facility], 02/25/2015 100mg Mouth Twice A Day M.D. Capsules Epipen 2-Clifford for use as directed 1units [facility], 02/15/2015 M.D. 0.3mg/0.3ML Solution Auto-Inject Aspirin 1 by mouth once 90tabs [facility], 12/16/[address] gera Santos Citalopram take one tablet by 135tabs [facility], 11/28/2011 Hydrobromide mouth once daily M.D. 20mg Tablets Metformin HCL ER Take One Tablet By 90tabs [facility], 08/30/2011 500mg Mouth Every Day M.D. Tablets ER 24HR Latanoprost Instill 1 Drop Into Brittaney Altamirano, 0.005% Both Eyes AT Bedtime O.D. Solution [...] CPT Code Status Date Vaccine Lot # [id number] Given 01/17/2018 Influenza Virus Vaccine, Quadrivalent, Split, [id number] Preservative Free 44815 Given 02/16/2016 Influ Virus Vaccine, Quadrivalent, Split Virus, [id number] [address] Given 01/21/2015 Influenza Virus Vaccine, Quadrivalent, Split, [id number] Preservative Free 25668 Given 01/24/2014 Flu Vaccine Split Virus Preservative Free For Indiv 3Yr Older 54545 Given 11/28/2011 Pneumonia Vaccine [id number] Given 03/21/2011 Afluria Vaccine [id number] 97124 Given 12/30/2009 Influenza Virus 3Yrs & Over 12261 Given 02/28/2009 Influenza Virus Vaccine, Pandemic Formulation 20768 Given 02/24/2009 Influenza Virus 3Yrs & Over 01568 Given 02/26/2008 Influenza Virus 3Yrs & Over 24657 Given 02/26/2008 Influenza Virus 3Yrs & Over 30300 Given 03/13/2007 Influenza Virus 3Yrs & Over 76925 Given 03/13/2007 Influenza Virus 3Yrs & Over 21720 Given 02/22/2006 Influenza Virus 3Yrs & Over Vital Signs Date Vital Result Comment 12/22/2018 11:08am Height 63 inches 5'3" Weight 184.00 lb Heart Rate 102 /min BP Systolic 136 mmHg BP Diastolic 80 mmHg Body Temperature 98.1 F O2 % BldC Oximetry 95 % BMI (Body Mass Index) 32.6 kg/m2 12/01/2018 8:47am Height 63 inches 5'3" Weight 183.00 lb Heart Rate 85 /min BP Systolic 125 mmHg BP Diastolic 74 mmHg O2 % BldC Oximetry 97 % BMI (Body Mass Index) 32.4 kg/m2 Results Test Date Facility Test Result H/L Range Note CBC Auto 12/22/2018 [facility] White Blood 7.1 10^3/uL Normal 3.5-10.[address] [place] [address] [phone] Red Blood Count 4.86 10^6/uL Normal 3.70-4.87 [...] % Nucleated Red Blood Cells % 0.0 Inr/Protime 12/22/2018 [facility] Inr 1.03 Normal 0.82-1.[address] [place] [address] [phone] Laboratory test 12/22/2018 [facility] Partial 38.7 High 26.0- 38.[address] [place] [address] Time PTT [phone] D Dimer Quantitative 453 ng/mL High Less Than 230 2 Comp Metabolic 12/22/2018 [facility] Sodium 139 mmol/L Normal 135-[address] [place] [address] [phone] Potassium 3.8 mmol/L Normal 3.5-5.0 Chloride 107 [...] Egfr Non- 106.8 >60 Egfr 129.2 >60 3 Laboratory test 12/22/2018 [facility] Troponin-I (TnI) 0.03 ng/ mL <0.[address] [place] [address] [phone] B-Type Natriuretic Peptide BNP 248 pg/mL High <=100 CBC Auto 11/22/2018 [facility] White Blood 7.0 10^3/uL Normal 3.5-10.[address] [place] [address] [phone] Red Blood Count 4.71 10^6/uL Normal 3.70-4.87 [...] Blood Cells % 0.1 Laboratory test 11/22/2018 [facility] Hemoglobin A1c 6.5 % High 4.0-5.[address] (Glyco HGB) [place] [address] [phone] Comp Metabolic 11/22/2018 [facility] Sodium 139 Normal 135- [address] mmol/[place] [address] [phone] Potassium 4.2 mmol/L Normal 3.5-5.0 Chloride 105 [...] Non- 116.0 >60 Egfr 140.3 >60 6 Laboratory test 08/22/2018 [facility] Pathologist (SEE NOTE) [address] Review [place], [place] [address] [phone] Liver Function 08/22/2018 [facility] Total Protein 7.5 g/dL Normal 6.4-[address] [place] [address] [phone] Albumin 4.0 g/dL Normal 3.2-5.2 Globulin 3.5 g/dL Normal 2-4 Albumin/Globulin Ratio 1.1 Normal 1-3 Total Bilirubin 1.30 mg/dL High 0.2-1.0 Direct Bilirubin 0.20 mg/dL High 0.03-0.18 Indirect Bilirubin 1.1 mg/dL High 0.3-1.0 Alkaline Phosphatase 122 U/L High 34-104 Alt 14 U/L Normal 7-52 Ast 13 U/L Normal 13-39 Laboratory test 08/22/2018 [facility] B-Type 50 pg/mL <=[address] [place] [address] Peptide BNP [phone] Iron & Iron 08/22/2018 [facility] Iron 88 g/dL Normal 50- [address] [place] [address] [phone] Unsaturated Iron Binding < 404 g/dL Total Iron Binding Capacity 419 g/dL Normal 250-450 Transferrin 299 mg/dL Normal 203-362 % Iron Saturation 21 % Normal 15-55 CBC Auto 08/22/2018 [facility] White Blood 6.1 10^3/uL Normal 3.5-10.[address] [place] [address] [phone] Red Blood Count 5.33 10^6/uL High 3.70-4.87 [...] % Nucleated Red Blood Cells % 0.1 Lipid Profile 07/11/2018 [facility] Triglycerides 138 mg/dL 8 (Trig/Chol/HDL) [address] [place] [address] [phone] Cholesterol 153 mg/dL 9 HDL Cholesterol 73.9 mg/dL 10 LDL Cholesterol 52 mg/dL 11 Comp Metabolic 07/11/2018 [facility] Sodium 138 mmol/L Normal 135-[address] [place] [address] [phone] Potassium 4.2 mmol/L Normal 3.5-5.0 Chloride 106 [...] Egfr 140.3 >60 12 Laboratory test 07/11/2018 [facility] Hemoglobin A1c 6.0 % High 4.0-5.[address] (Glyco HGB) [place] [address] [phone] Urine 07/11/2018 [facility] Ur Microalbumin < 15.[address] (mg/L) mg/[place] [address] [phone] Urine Creatinine 82.37 mg/dL Urine Microalbumin/Creatinine TNP <31 14 CBC Auto 07/11/2018 [facility] White Blood 6.9 10^3/uL Normal 3.5-10.[address] [place] [address] [phone] Red Blood Count 4.79 10^6/uL Normal 3.70-4.87 [...] % 0 Iron & Iron Binding 07/11/2018 [facility] Iron 24 g/dL Low 50-[address] [place] [address] [phone] Unsaturated Iron Binding < 465 g/dL Total Iron Binding Capacity 480 g/dL High 250-450 Transferrin 343 mg/dL Normal 203-362 % Iron Saturation 5 % Low 15-55 1 Standard intensity warfarin therapeutic range: 2.0-3.0 High intensity warfarin therapeutic range: 2.5-3.5 2 Please note: The following may produce a false positive D Dimer test: - Rheumatoid factor greater than 60 IU/ml - Plasma hemoglobin greater than 0.05 gm/dl - Bilirubin greater than 50 mg/dl - Lipids greater than 1000 mg/dl - FDP greater than 20 ug/ml 3 Because ethnic data is not always readily [...] 15-29 5 Kidney failure <15 (or dialysis) 4 Verbal to [id number] by [id number] at 1446 on 12/22/18. Results read back accurately. Corrected Report. Result TnIDx:0.39 Called to [id number] at: 13:52:23 by:[id number] Read back by: [id number] CORRECTED REPORT --- Corrected on 12/22/18 1446 --- Troponin I previously reported as: 0.39 *C ng/mL Result TnIDx:0.39 Called to [id number] at: 13:52:23 by:[id number] Read back by: [id number] Troponin-I testing on Plasma Separator Tubes (PST) has a known false positive rate of 0.20-0.40%. All positive troponins reflex immediately to secondary confirmatory testing. Using the [employer] DxI 800 Access Immunoassay systems, the 99th percentile upper reference limit was demonstrated to be < 0.03 ng/mL. 5 Therapeutic target for the treatment of diabetes mellitus patients is <7% HBA1C, and in selective patients <6.0%. Please refer to [place] [employer] diabetic care guidelines for further [...] in selective patients <6.0%. Please refer to [place] [employer] diabetic care guidelines for further information. 14 Unable to calculate due to low microalbumin 15 Consistent with Previous Results Reported on 01/09/18 Procedures Date Code Description Status 09/26/2018 481649507 Diabetic Retinal Eye Exam Completed 08/01/2018 [id number] Mammogram Completed 03/11/2018 [id number] Colonoscopy Completed 09/26/2017 [id number] Diabetic Retinal Eye Exam Completed 03/15/2017 [id number] Diabetic Retinal Eye Exam Completed 12/07/2016 [id number] Mammogram Completed 09/07/2016 [id number] Diabetic Retinal Eye Exam Completed 12/02/2015 [id number] Mammogram Completed 11/19/2014 87503279 Mammogram Completed 06/28/2014 [id number] Diabetic Retinal Eye Exam Completed 11/20/2013 [id number] Mammogram Completed 09/09/2013 [id number] Diabetic Retinal Eye Exam Completed 11/13/2012 [id number] Mammogram Completed 08/20/2012 [id number] Diabetic Retinal Eye Exam Completed 05/15/2012 [id number] Mammogram Completed 12/26/2011 [id number] Mammogram Completed 12/13/2011 [id number] Mammogram Completed 08/31/2010 [id number] Colonoscopy Completed 11/13/2007 [id number] Mammogram Completed 05/14/2007 [id number] Mammogram Completed 10/18/2006 [id number] Mammogram Completed 05/07/2003 [id number] Mammogram Completed Medical Devices Description No Information Available Encounters Type Date Location Provider Dx Diagnosis Office Visit 12/01/2018 [facility] Criss Sid D64.9 Anemia, unspecified 8:40a Brandi Luna M.D. R74.0 Nonspec elev of levels of transamns & lactic acid dehydrgnse E11.9 Type 2 diabetes mellitus without complications Office Visit 10/07/2018 8:45a [facility] Donald S. J32.9 [facility] Alvarado M.D. sinusitis, unspecified G43.009 Migraine w/o aura, not intractable, w/o status migrainosus G50.1 Atypical facial pain Office Visit 08/29/2018 8:40a [facility] Criss D64.9 Anemia, Brandi Lau M.D. unspecified Ccmob E11.9 Type 2 diabetes mellitus without complications R74.0 Nonspec elev of levels of transamns & lactic acid dehydrgnse Office Visit 08/25/2018 [facility] Jose Deydemetrio, G43.009 Migraine w/o aura, 3:00p Neurologic WELFARE ADVISER not intractable, [facility] w/o status migrainosus Office Visit 07/18/2018 [facility] Criss E11.42 Type 2 diabetes 9:00a Medicine - Cheryl Lau M.D. mellitus with diabetic polyneuropathy D50.9 Iron deficiency anemia, unspecified I10 Essential (primary) hypertension Z12.31 Encntr screen mammogram for malignant neoplasm of breast R06.02 Shortness of breath Assessments Date Code Description Provider 12/26/2018 I42.9 Cardiomyopathy, unspecified Criss Lau M.D. 12/22/2018 R06.02 Shortness of breath [...] without aura, not intractable, Jose Ahn, WELFARE ADVISER without status migra 07/18/2018 E11.42 Type 2 [...] 1:20 pm - Criss Lau M.D. at [facility] Medicine - [facility]12/26/2018 - Criss Lau M.D.I42.9 Cardiomyopathy , unspecified Functional Status Description No Information Available Mental Status Description No Information Available Referrals Refer to Dr Reason for Referral Status Appt Date [facility] [address] [place] [address] [phone]
--- NOTE | 2018-12-26 15:53 | ED ---
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 The patient rates the pain 0/10 in severity. Symptoms aggravated by palpation and lying down. Symptoms alleviated by nothing. Patient's primary care provider is Dr. Lau. Per nurse, patient was discharged from the hospital on Saturday12/23/18 for treatment of a low EF. - History of Current Complaint Chief Complaint: EDChestWallPain Time Seen by Provider: 12/26/18 15:31 Hx Obtained From: Patient Onset/Duration: Started Weeks Ago, Still Present, Worse Since - today Timing: Intermittent Current Severity: None Pain Intensity: 0 Pain Scale Used: 0-10 Numeric Chest Pain Location: Mid Sternal Aggravating Factor(s): Other: - palpation and lying down Alleviating Factor(s): Nothing - Additional Pertinent History Primary Care Physician: ROBERTO - Allergy/Home Medications Allergies/Adverse Reactions: Allergies Allergy/AdvReac Type Severity Reaction Status Date / Time bee venom protein (honey bee) Allergy Mild Edema Verified 12/26/18 15:28 Penicillins Allergy Mild Edema Verified 12/26/18 15:28 PMH/Surg Hx/FS Hx/Imm Hx Endocrine/Hematology History: Reports: Hx Diabetes - TYPE 2 Cardiovascular History: Reports: Hx Angina, Hx Hypercholesterolemia, Hx Hypertension - ON MEDS Denies: Hx Myocardial Infarction, Other Cardiovascular Problems/Disorders Respiratory History: Reports: Other Respiratory Problems/Disorders - emphysema Denies: Hx Asthma, Hx Chronic Obstructive Pulmonary Disease (COPD) GI History: Reports: Hx Gastroesophageal Reflux Disease Denies: Other GI Disorders History: Denies: Hx Chronic Renal Failure, Hx Dialysis, Hx Renal Disease Musculoskeletal History: Reports: Hx Arthritis - left wrist, Hx Tendonitis - RIGHT HAND Sensory History: Reports: Hx Contacts or Glasses - GLASSES Denies: Hx Hearing Aid Opthamlomology History: Reports: Hx Contacts or Glasses - GLASSES Neurological History: Reports: Hx Headaches, Hx Migraine Denies: Other Neuro Impairments/Disorders - Cancer History Hx Chemotherapy: No Hx Radiation Therapy: No - Surgical History Surgery Procedure, Year, and Place: RIGHT WRIST, 2010, [facility] [place]. GALLBLADDER, 1984, [facility]. 03/18/12, LEFT ELBOW, [facility]. 06/2016, abdominal surgery, [facility] Hx Anesthesia Reactions: No Infectious Disease History: No Infectious Disease History: Denies: Traveled Outside the [place] in Last 30 Days - Family History Known Family History: Negative: Cardiac Disease, Diabetes - Social History Alcohol Use: None Hx Substance Use: No Substance Use Type: Reports: None Hx Tobacco Use: Yes - OCCASIONALLY Smoking Status (MU): Light Every Day Tobacco Smoker Type: Cigarettes, eCigarettes Amount Used/How Often: 2-3 CIGS A DAY Have You Smoked in the Last Year: Yes Review of Systems Negative: Fever Positive: Chest Pain All Other Systems Reviewed And Are Negative: Yes Physical Exam - Summary Physical Exam Summary: Appearance: The patient is well-nourished in no acute distress and in no acute pain. Skin: The skin is warm and dry, and skin color reflects adequate perfusion. HEENT: The head is normocephalic and atraumatic. The pupils are equal and reactive. The conjunctivae are clear and without drainage. Nares are patent and without drainage. Mouth reveals moist mucous membranes, and the throat is without erythema and exudate. The external ears are intact. The ear canals are patent and without drainage. The tympanic membranes are intact. Neck: The neck is supple with full range of motion and non-tender. There are no carotid bruits. There is no neck vein distension. Respiratory: The patient is tender in the right parasternal area. Lungs are clear to auscultation and breath sounds are symmetrical and equal. Cardiovascular: Heart is regular rate and rhythm. There is no murmur or rub auscultated. There is no peripheral edema and pulses are symmetrical and equal. Abdomen: The abdomen is soft and non-tender. There are normal bowel sounds heard in all four quadrants and there is no organomegaly palpated. Musculoskeletal: There is no back tenderness noted. Extremities are non-tender with full range of motion. There is good capillary refill. There is no peripheral edema or calf tenderness elicited. Neurological: Patient is alert and oriented to person, place and time. The patient has symmetrical motor strength in all four extremities. Cranial nerves are grossly intact. Deep tendon reflexes are symmetrical and equal in all four extremities. Psychiatric: The patient has an appropriate affect and does not exhibit any anxiety or depression. Triage Information Reviewed: Yes Vital Signs On Initial Exam: Initial Vitals Temp Pulse Resp BP Pulse Ox 98.2 F 69 16 118/55 99 12/26/18 15:23 12/26/18 15:23 12/26/18 15:23 12/26/18 15:23 12/26/18 15:23 Vital Signs Reviewed: Yes Diagnostics - Vital Signs Vital Signs Temp Pulse Resp BP Pulse Ox 12/26/18 15:23 98.2 F 69 16 118/55 99 - Laboratory Result Diagrams: 12/26/18 16:48 12/26/18 16:48 Lab Statement: Any lab studies that have been ordered have been reviewed, and results considered in the medical decision making process. - EKG 1632 Cardiac Rate: Bradycardia - 56 BPM EKG Rhythm: Sinus Bradycardia EKG Comparison: No Significant Change - 12/22/18 Summary of EKG Findings: Sinus bradycardia. Unchanged from 12/22/18. Non specific intraventricular delay Chest Pain Course/Dx - Course Course Of Treatment: Ms. Clifton presented with a chest pain that she's had on and off for many months. She had a recent admission for a cardiomyopathy and was worked up with a stress test as well as an echocardiogram. She saw her physician today and her EKG was acutely abnormal and so she was sent over. Her EKG today looks the same as the EKG on the and when she was here in the hospital. That however is markedly different from her next most recent EKG. Here she was nontoxic in appearance with stable vitals and a tender chest wall which reproduces her pain. Chest x-ray and labs were obtained were unremarkable and I recommended follow-up with PCP. - Diagnoses Provider Diagnoses: Chest wall pain Discharge ED - Sign-Out/Discharge Documenting (check all that apply): Patient Departure - Discharge Patient Received Moderate/Deep Sedation with Procedure: No - Discharge Plan Condition: Stable Disposition: HOME Patient Education Materials: Chest Wall Pain (ED) Referrals: Criss Lau MD [Primary Care Provider] - 2 Days Additional Instructions: Follow up with your primary care provider in 2-3 days. RETURN TO EMERGENCY DEPARTMENT FOR NEW OR WORSENING SYMPTOMS. - Billing Disposition and Condition Condition: STABLE Disposition: Home - Attestation Statements Document Initiated by Scribe: Yes Documenting Scribe: Sharmin Blandon Provider For Whom Scribe is Documenting (Include Credential): Erwin Brown MD Scribe Attestation: I, Sharmin Blandon, scribed for Erwin Brown MD on 12/26/18 at 2109. Scribe Documentation Reviewed: Yes Provider Attestation: The documentation as recorded by the scribe, Sharmin Blandon accurately reflects the service I personally performed and the decisions made by me, Erwin Brown MD Status of Scribe Document: Viewed
[2018-12-26 16:55] LABS: ABS Basophils 0.1 10^3/ul (0-0.2); ABS Eosinophils 0.3 10^3/ul (0-0.6); ABS Lymphocytes 1.9 10^3/ul (1.0-4.8); ABS Monocytes 0.6 10^3/ul (0-0.8); ABS Neutrophils 4.8 10^3/ul (1.5-7.7); Eosinophil % 4.3 %; Hematocrit 38 % (35-47); Hemoglobin 12.4 g/dL (12.0-16.0); Lymphocyte % 24.6 %; Mean Corpuscular HGB Conc 33 g/dL (31-36); Mean Corpuscular Hemoglobin 26 pg (27-31); Mean Corpuscular Volume 79 fL (80-97); Mean Platelet Volume 8.2 fL (7.4-10.4); Nucleated Red Blood Cells % 0.1; Platelet Count 368 10^3/uL (150-450); Red Blood Count 4.82 10^6 /uL (3.70-4.87); Red Cell Distribution Width 18 % (10-15); White Blood Count 7.8 10^3/uL (3.5-10.8)
[2018-12-26 17:13] LABS: Albumin 3.8 g/dL (3.2-5.2); Albumin/Globulin Ratio 1.1 (1-3); BUN/Creatinine Ratio 15.9 (8-20); Calcium 9.1 mg/dL (8.6-10.3); EGFR African American 117.4 (>60); EGFR Non-African American 97.1 (>60); Globulin 3.5 g/dL (2-4); Potassium 3.7 mmol/L (3.5-5.0); Total Bilirubin 1.9 mg/dL (0.2-1.0); Total Protein 7.3 g/dL (6.4-8.9)
[2018-12-26 17:15] LABS: Troponin I 0.02 ng/mL (<0.04)
[2018-12-26 18:13] VITALS: BP 100/54
== END 2018-12-26 18:05 | disposition home or self-care (01) ==
LOC: ED 15:19
DX: R07.89 Other chest pain (principal); E11.9 Type 2 diabetes mellitus without complications; E78.00 Pure hypercholesterolemia, unspecified; I10 Essential (primary) hypertension; J43.9 Emphysema, unspecified; K21.9 Gastro-esophageal reflux disease without esophagitis; F17.210 Nicotine dependence, cigarettes, uncomplicated; Z79.82 Long term (current) use of aspirin; Z79.899 Other long term (current) drug therapy; Z88.0 Allergy status to penicillin
CPT/HCPCS: 36415; 80053; 83605; 84484; 85025; 93005; 99282

== ENCOUNTER 2019-01-28 17:23 | Emergency (ER) | payer MEDICARE ==
--- NOTE | 2019-01-28 17:34 | ED ---
HPI Chest Pain - HPI Summary HPI Summary: 58 year old F brought in by EMS to [facility] complains of chest pain rated 9/10 in severity described as pressure with associated shortness of breath since yesterday afternoon while she was relaxing. States she has been short of breath for several days. Reports congestion and dry cough. Found out recently she had a "weak heart" (CHF per [facility]) the last time she was admitted to the hospital during which she had a stress test, CTA and echo showing EF 25%. Symptoms today similar to the last time she was in the hospital. Symptoms aggravated by nothing. Symptoms alleviated by rest. PMHx: diabetes, HTN, CHF. States she had never had stress test. States she vapes. - History of Current Complaint Time Seen by Provider: 01/28/19 17:27 Hx Obtained From: Patient Onset/Duration: Started Days Ago - 1, Still Present Timing: Constant Current Severity: Severe Pain Intensity: 9 Pain Scale Used: 0-10 Numeric Character: Pressure/Squeezing Aggravating Factor(s): Nothing Alleviating Factor(s): Nothing Associated Signs and Symptoms: Positive: Shortness of Breath. Negative: Cough - Additional Pertinent History Primary Care Physician: ROBERTO - Allergy/Home Medications Allergies/Adverse Reactions: Allergies Allergy/AdvReac Type Severity Reaction Status Date / Time bee venom protein (honey bee) Allergy Mild Edema Verified 01/28/19 17:33 Penicillins Allergy Mild Edema Verified 01/28/19 17:33 PMH/Surg Hx/FS Hx/Imm Hx Endocrine/Hematology History: Reports: Hx Diabetes - TYPE 2 Cardiovascular History: Reports: Hx Angina, Hx Hypercholesterolemia, Hx Hypertension - ON MEDS Denies: Hx Myocardial Infarction, Other Cardiovascular Problems/Disorders Respiratory History: Reports: Other Respiratory Problems/Disorders - emphysema Denies: Hx Asthma, Hx Chronic Obstructive Pulmonary Disease (COPD) GI History: Reports: Hx Gastroesophageal Reflux Disease Denies: Other GI Disorders History: Denies: Hx Chronic Renal Failure, Hx Dialysis, Hx Renal Disease Musculoskeletal History: Reports: Hx Arthritis - left wrist, Hx Tendonitis - RIGHT HAND Sensory History: Reports: Hx Contacts or Glasses - GLASSES Denies: Hx Hearing Aid Opthamlomology History: Reports: Hx Contacts or Glasses - GLASSES Neurological History: Reports: Hx Headaches, Hx Migraine Denies: Other Neuro Impairments/Disorders - Cancer History Hx Chemotherapy: No Hx Radiation Therapy: No - Surgical History Surgery Procedure, Year, and Place: RIGHT WRIST, 2010, [facility]. GALLBLADDER, 1985, [facility]. 03/18/12, LEFT ELBOW, [facility]. 06/2016, abdominal surgery, [facility] Hx Anesthesia Reactions: No - Family History Known Family History: Negative: Cardiac Disease, Diabetes - Social History Alcohol Use: None Hx Substance Use: No Substance Use Type: Reports: None Hx Tobacco Use: Yes - OCCASIONALLY Smoking Status (MU): Light Every Day Tobacco Smoker Type: Cigarettes, eCigarettes Amount Used/How Often: 2-3 CIGS A DAY Have You Smoked in the Last Year: Yes Review of Systems Positive: Nasal Discharge Positive: Chest Pain Positive: Shortness Of Breath, Cough All Other Systems Reviewed And Are Negative: Yes Physical Exam - Summary Physical Exam Summary: Constitutional: Well-developed, Well-nourished, Alert. Anxious Skin: Warm, Dry HENT: Normocephalic; Atraumatic Eyes: Conjunctiva normal Neck: Musculoskeletal ROM normal neck. (-) JVD, (-) Stridor, (-) Nuchal rigidity Cardio: Rhythm regular, rate normal, Heart sounds normal; Intact distal pulses; Radial pulses are 2+ and symmetric. (-) Murmur Pulmonary/Chest wall: Tachypneic. (-) Respiratory distress, (-) Wheezes, (-) Rales Abd: Soft, (-) tenderness, (-) Distension, (-) Guarding, (-) Rebound Musculoskeletal: (-) Edema Lymph: (-) Cervical adenopathy Neuro: Alert, Oriented x3 Psych: Mood and affect Normal Triage Information Reviewed: Yes Vital Signs Reviewed: Yes Procedures - Sedation Patient Received Moderate/Deep Sedation with Procedure: No Diagnostics - Laboratory Result Diagrams: 01/28/19 18:04 01/28/19 18:04 Lab Statement: Any lab studies that have been ordered have been reviewed, and results considered in the medical decision making process. - Radiology CXR Radiology Interpretation Completed By: ED Physician Summary of Radiographic Findings: cardiomegaly. pending official report - EKG 1722 Cardiac Rate: Tachycardia - 108 BPM EKG Rhythm: Sinus Tachycardia EKG Comparison: No Significant Change - 12/22/18 Summary of EKG Findings: LBBB Re-Evaluation - Re-Evaluation First Eval Re-Evaluation Time: 18:54 Comment: feeling mildly anxious, denies pain. O2 turned off, normal O2 sat on RA. will continue to monitor Second Eval Re-Evaluation Time: 21:18 Comment: troponin II 0.03. informed patient. feels comfortable going home. states she will call her friend Chest Pain Course/Dx - Course Course Of Treatment: 58 year-old female history of diabetes hypertension hyperlipidemia migraines, depression, heart failure and an EF of 20% who presents with shortness of breath. Patient had a recent hospitalization for similar where she had a negative CT PE, echo showing an EF of 25%, and a stress test showing severe LV dysfunction. Patient was seen by cardiology and noted to have a left bundle branch block on EKG. has URI symptoms, suspect congestion could be worsening her SOB. ddx includes. Pneumonitis - hx vaping, easy WOB on RA. Lower suspicion. PNA - no sputum production, no fevers or chills. No leukocytosis. CXR w/o infiltrate. Low suspicion. PTX - breath sounds equal, no risk factors for PTX, CXR w/o e/o PTX. ACS - no EKG changes, initial trop not elevated. Low suspicion. CHF - hx CHF, no BLE edema, CXR w/o pulmonary edema. PE - recent neg CTA. Suspect chest pain is 2/2 atypical CP as just had neg stress, CTA, trop neg x2 and EKG unchanged. - Diagnoses Provider Diagnoses: Shortness of breath, URI (upper respiratory infection), Chest pain Discharge ED - Sign-Out/Discharge Documenting (check all that apply): Patient Departure - Discharge - Discharge Plan Condition: Stable Disposition: HOME Patient Education Materials: Chest Pain (ED), Shortness of Breath (ED) Referrals: Criss Lau MD [Primary Care Provider] - Additional Instructions: You were seen in the emergency department for shortness of breath and chest pain. Your chest x-ray did not show any obvious cause for your shortness of breath. Your heart number was normal your EKG did not show any acute changes. Please return to emergency for worsening pain, trouble breathing, chest pain, passing out. If any studies were not completed at the time of discharge you will be called with the relevant results. Please follow up with your primary care doctor in next 2-3 days. It was a pleasure taking care of you today. - Billing Disposition and Condition Condition: STABLE Disposition: Home - Attestation Statements Document Initiated by Scribe: Yes Documenting Scribe: Sharmin Blandon Provider For Whom [employer] is Documenting (Include Credential): Kasandra Shukla MD Scribe Attestation: I, Sharmin Blandon, scribed for Kasandra Shukla MD on 01/28/19 at 2156. Scribe Documentation Reviewed: Yes Provider Attestation: The documentation as recorded by the devonteibeSharmin accurately reflects the service I personally performed and the decisions made by Kasandra galarza MD Status of Scribe Document: Viewed
[2019-01-28] MEDS ORDERED: Aspirin 81 mg CHEW TAB* 81 MG TAB.CHEW PO ONE (17:48)
[2019-01-28 18:16] LABS: ABS Basophils 0.1 10^3/ul (0-0.2); ABS Eosinophils 0.2 10^3/ul (0-0.6); ABS Lymphocytes 1.5 10^3/ul (1.0-4.8); ABS Monocytes 0.9 10^3/ul (0-0.8); Eosinophil % 1.7 %; Hematocrit 43 % (35-47); Hemoglobin 13.8 g/dL (12.0-16.0); Lymphocyte % 15.2 %; Mean Corpuscular HGB Conc 32 g/dL (31-36); Mean Corpuscular Hemoglobin 26 pg (27-31); Mean Corpuscular Volume 80 fL (80-97); Nucleated Red Blood Cells % 0.1; Platelet Count 334 10^3/uL (150-450); Red Blood Count 5.32 10^6 /uL (3.70-4.87); Red Cell Distribution Width 18 % (10-15); White Blood Count 9.7 10^3/uL (3.5-10.8)
[2019-01-28 18:34] LABS: BUN/Creatinine Ratio 13.3 (8-20); Calcium 9.4 mg/dL (8.6-10.3); EGFR African American 85.4 (>60); EGFR Non-African American 70.6 (>60); Globulin 3.9 g/dL (2-4); Potassium 4.4 mmol/L (3.5-5.0); Total Bilirubin 1.4 mg/dL (0.2-1.0); Total Protein 7.9 g/dL (6.4-8.9)
[2019-01-28 18:35] LABS: Troponin I 0.02 ng/mL (<0.04)
--- OUTSIDE RECORDS SUMMARY | 2019-01-28 19:07 | XMS REPORT | Continuity of Care Document ---
:1960 External Reference #:[id number] Author Name Dnany Melchor M.D., [facility], [facility] (transmitted by agent of provider Yanet Hale) Address [address] [place] [address] Care Team Providers Name Role Phone Criss Lau MD - Internal Care Team Information Manager Travel Medicine Luda Craig MD - Obstetrics & Care Team Information Manager Travel Gynecology Diana Mack M.D. - Single Care Team Information Manager Travel [facility] - Mental Care Team Information Manager Travel [facility] ENT - Clinic/Center Care Team Information Manager Travel [phone] Roland Rey MD - Care Team Information Manager Travel [phone] Otolaryngology Problems Active Problems Provider Date Type 2 diabetes mellitus Felicity Negrete M.D., [facility] Onset: 07/13/2010 Pure hypercholesterolemia Fel[facility] M.D., [facility] Onset: 07/13/2010 Benign essential hypertension Felicity Negrete M.D., [facility] Onset: 07/13/2010 Migraine without aura, not refractory Cherelle Francis M.D. Onset: 2014 Cardiomyopathy Danny Melchor M.D., [facility], Onset: 12/30/2018 [facility] Social History Type Date Description Comments Sex Unknown Tobacco Use Start: Unknown End: Former Cigarette Smoker quit in 2013, started Unknown in her teens, never smoked more than 4 cigarettes in a day, usually less. Quit in 2014 (40 yr) ETOH Use Denies alcohol use Tobacco Use Start: Unknown End: Patient is a former Unknown smoker Smoking Status Reviewed: 12/30/18 Patient is a former smoker Exercise Does not exercise Type/Frequency Allergies, Adverse Reactions, Alerts Active Allergies Reaction Severity Comments Date Penicillin swelling 11/02/2009 Bee Sting 11/02/2009 Losartan cough 07/25/2015 Lisinopril cough 07/25/2015 Medications Active Medications SIG Qnty Indications Ordering Provider Date Aldactone take one half 90tabs I42.9 Danny Montana Melchor, 12/30/2018 25mg Tablets tablet (12.5 mg) M.D., FACC, FASNC per day Atorvastatin Calcium 1 by mouth [facility]78.5 [facility]2018 day M.D. 40mg Tablets Carvedilol 1 by mouth twice 180tabs [facility], 12/24/2018 6.25mg a day M.D. Tablets Lisinopril 1 by mouth every 90tabs [facility], 12/24/2018 2.5mg day M.D. Tablets Ferrous Gluconate take 1 tablet by 30tabs D50.9 [facility], 2018 mouth once daily M.D. 324(38Fe) mg Tablets i Esomeprazole Take One Capsule 90caps [facility], 06/04/2018 Magnesium By Mouth Every M.D. 40mg Capsules Day DR Lobo Chair For daily use Dx 1units R26.81 [facility], 08/27/2017 r 26.81 M.D. Vitamin B12 1 by mouth every 30tabs R26.81 [facility], 02/11/2017 1000mcg day M.D. Tablets ER Walker 4 wheels, 1units R26.81 [facility], 01/11/2017 [facility], seat and M.D. basket. r26.81 G62.9 Miralax 17 gm every day 510units R10.13 [facility], 11/17/2015 3350NF Powder mixed w/ 8 oz M.D. water/juice as needed Gabapentin Take One Capsule By 90caps E11.40 [facility], 02/25/2015 100mg Mouth Twice A Day M.D. Capsules Epipen 2-Clifford for use as directed 1units Criss Lau, 02/15/2015 M.D. 0.3mg/0.3ML Solution Auto-Inject Aspirin 1 by mouth once 90tabs Criss Lau, 12/16/[address] daily M.D. Citalopram take one tablet by 135tabs Criss Lau, 11/28/2011 Hydrobromide mouth once daily M.D. 20mg [...] take 1 tablet by 60tabs D50.9 Criss Cotton, 2018 - mouth once daily M.D. 08/29/2018 324(38Fe) mg if tolerated take Tablets twice daily Medications Administered in Office Medication SIG Qnty Indications Ordering Provider Date Depomedrol 40MG Roberta Blackwood M.D. 03/20/2017 Injection Depomedrol 40MG Roberta Blackwood M.D. 05/21/2016 Injection Depomedrol 80MG Roberta Blackwood M.D. 07/29/2014 Injection Immunizations CPT Code Status Date Vaccine Lot # [id number] Given 01/17/2018 Influenza Virus Vaccine, Quadrivalent, Split, [id number] Preservative Free 00985 Given 02/16/2016 Influ Virus Vaccine, Quadrivalent, Split Virus, [id number] [address] Given 01/21/2015 Influenza Virus Vaccine, Quadrivalent, Split, [id number] Preservative Free 72972 Given 01/24/2014 Flu Vaccine Split Virus Preservative Free For Indiv 3Yr Older 23050 Given 11/28/2011 Pneumonia Vaccine [id number] Given 03/21/2011 Afluria Vaccine [id number] 12240 Given 12/30/2009 Influenza Virus 3Yrs & Over 89260 Given 02/28/2009 Influenza Virus Vaccine, Pandemic Formulation 78306 Given 02/24/2009 Influenza Virus 3Yrs & Over 78822 Given 02/26/2008 Influenza Virus 3Yrs & Over 50592 Given 02/26/2008 Influenza Virus 3Yrs & Over 77392 Given 03/13/2007 Influenza Virus 3Yrs & Over 07708 Given 03/13/2007 Influenza Virus 3Yrs & Over 86501 Given 02/22/2006 Influenza Virus 3Yrs & Over Vital Signs Date Vital Result Comment 12/30/2018 1:22pm Height 63 inches 5'3" Weight 184.00 lb with shoes Heart Rate 70 /min BP Systolic Sitting 110 mmHg Rue BP Diastolic Sitting 70 mmHg Rue BP Systolic Standing 108 mmHg Rue BP Diastolic Standing 74 mmHg Rue BMI (Body Mass Index) 32.6 kg/m2 Ejection Fraction 20-25% Echo 12/22/18 12/26/2018 1:59pm Height 63 inches 5'3" Weight 182.00 lb Heart Rate 70 /min BP Systolic 99 mmHg BP Diastolic 62 mmHg O2 % BldC Oximetry 98 % BMI (Body Mass Index) 32.2 kg/m2 Results Test Date Facility Test Result H/L Range Note Laboratory test 12/26/2018 [facility] Troponin-I 0.02 ng/mL < 0.[address] (TnI) [place] [address] [phone] Laboratory test 12/26/2018 [facility] Lactic Acid 0.9 mmol/L Normal 0.5-2.[address] [place] [address] [phone] CBC Auto Diff 12/26/2018 [facility] White Blood 7.8 10^3/uL Normal 3.5-10.[address] [place] [address] [phone] Red Blood Count 4.82 10^6/uL Normal 3.70-4.87 Hemoglobin 12.4 g/dL Normal 12.0-16.0 Hematocrit 38 % Normal 35-47 Mean Corpuscular Volume 79 fL Low 80-97 Mean Corpuscular Hemoglobin 26 pg Low 27-31 Mean Corpuscular HGB Conc 33 g/dL Normal 31-36 Red Cell Distribution Width 18 % High 10-15 Platelet Count 368 10^3/uL Normal 150-450 Mean Platelet Volume 8.2 fL Normal 7.4-10.4 Abs Neutrophils 4.8 10^3/uL Normal 1.5-7.7 Abs Lymphocytes 1.9 10^3/uL Normal 1.0-4.8 Abs Monocytes 0.6 10^3/uL Normal 0-0.8 Abs Eosinophils 0.3 10^3/uL Normal 0-0.6 Abs Basophils 0.1 10^3/uL Normal 0-0.2 Abs Nucleated RBC 0.0 10^3/uL Granulocyte % 62.0 % Lymphocyte % 24.6 % Monocyte % 8.3 % Eosinophil % 4.3 % Basophil % 0.8 % Nucleated Red Blood Cells % 0.1 Comp Metabolic 12/26/2018 [facility] Sodium 138 mmol/L Normal 135-[address] [place] [address] [phone] Potassium 3.7 mmol/L Normal 3.5-5.0 Chloride 106 mmol/L Normal 101-111 Co2 Carbon Dioxide 24 mmol/L Normal 22-32 Anion Gap 8 mmol/L Normal 2-11 Glucose 100 mg/dL Normal 70-100 Blood Urea Nitrogen 10 mg/dL Normal 6-24 Creatinine 0.63 mg/dL Normal 0.51-0.95 BUN/Creatinine Ratio 15.9 Normal 8-20 Calcium 9.1 mg/dL Normal 8.6-10.3 Total Protein 7.3 g/dL Normal 6.4-8.9 Albumin 3.8 g/dL Normal 3.2-5.2 Globulin 3.5 g/dL Normal 2-4 Albumin/Globulin Ratio 1.1 Normal 1-3 Total Bilirubin 1.90 mg/dL High 0.2-1.0 Alkaline Phosphatase 136 U/L High 34-104 Alt 15 U/L Normal 7-52 Ast 14 U/L Normal 13-39 Egfr Non- 97.1 >60 Egfr 117.4 >60 3 CBC Auto 12/22/2018 [facility] White Blood 7.1 10^3/uL Normal 3.5-10.[address] [place] [address] [phone] Red Blood Count 4.86 10^6/uL Normal 3.70-4.87 [...] Blood Cells % 0.0 Laboratory test 12/22/2018 [facility] Troponin-I (TnI) 0.03 ng/ mL <0.04 4 finding [address] [place] [address] [phone] B-Type Natriuretic Peptide BNP 248 pg/mL High <=100 Inr/Protime 12/22/2018 [facility] Inr 1.03 Normal 0.82-1.09 5 [address] [place] [address] [phone] Laboratory test 12/22/2018 [facility] Partial 38.7 High 26.0- 38.0 finding 101 [facility] [place] [address] Time PTT [phone] D Dimer Quantitative 453 ng/mL High Less Than 230 6 Comp Metabolic 12/22/2018 [facility] Sodium 139 mmol/L Normal 135-145 Panel [address] [place] [address] [phone] Potassium 3.8 mmol/L Normal 3.5-5.0 Chloride 107 [...] Egfr Non- 106.8 >60 Egfr 129.2 >60 7 Laboratory test 11/22/2018 [facility] Hemoglobin A1c 6.5 % High 4.0-5.6 [address] (Glyco HGB) [place] [address] [phone] Comp Metabolic 11/22/2018 [facility] Sodium 139 Normal 135- [address] mmol/[place] [address] [phone] Potassium 4.2 mmol/L Normal 3.5-5.0 Chloride 105 [...] Egfr Non- 116.0 >60 Egfr 140.3 >60 9 CBC Auto 11/22/2018 [facility] White Blood 7.0 10^3/uL Normal 3.5-10.[address] [place] [address] [phone] Red Blood Count 4.71 10^6/uL Normal 3.70-4.87 [...] % Nucleated Red Blood Cells % 0.1 CBC Auto 08/22/2018 [facility] White Blood 6.1 10^3/uL Normal 3.5-10.[address] [place] [address] [phone] Red Blood Count 5.33 10^6/uL High 3.70-4.87 [...] % 0.1 Iron & Iron Binding 08/22/2018 [facility] Iron 88 g/dL Normal 50-212 Capacity [address] [place] [address] [phone] Unsaturated Iron Binding < 404 g/dL Total Iron Binding Capacity 419 g/dL Normal 250-450 Transferrin 299 mg/dL Normal 203-362 % Iron Saturation 21 % Normal 15-55 Laboratory test 08/22/2018 [facility] B-Type 50 pg/mL <=100 finding 101 [facility] [place] [address] Peptide BNP [phone] Liver Function 08/22/2018 [facility] Total Protein 7.5 g/dL Normal 6.4-8.9 Panel [address] [place] [address] [phone] Albumin 4.0 g/dL Normal 3.2-5.2 Globulin 3.5 g/dL Normal 2-4 Albumin/Globulin Ratio 1.1 Normal 1-3 Total Bilirubin 1.30 mg/dL High 0.2-1.0 Direct Bilirubin 0.20 mg/dL High 0.03-0.18 Indirect Bilirubin 1.1 mg/dL High 0.3-1.0 Alkaline Phosphatase 122 U/L High 34-104 Alt 14 U/L Normal 7-52 Ast 13 U/L Normal 13-39 Laboratory test 08/22/2018 [facility] Pathologist Review (SEE NOTE) 10 finding [address] [place], [place] [address] [phone] Lipid Profile 07/11/2018 [facility] Triglycerides 138 mg/dL 11 (Trig/Chol/HDL) [address] [place] [address] [phone] Cholesterol 153 mg/dL 12 HDL Cholesterol 73.9 mg/dL 13 LDL Cholesterol 52 mg/dL 14 Comp Metabolic 07/11/2018 [facility] Sodium 138 mmol/L Normal 135-145 Panel [address] [place] [address] [phone] Potassium 4.2 mmol/L Normal 3.5-5.0 Chloride 106 [...] Egfr Non- 116.0 >60 Egfr 140.3 >60 15 Laboratory test 07/11/2018 [facility] Hemoglobin A1c 6.0 % High 4.0-5.6 [address] (Glyco HGB) [place] [address] [phone] Urine 07/11/2018 [facility] Ur Microalbumin < 15.[address] (mg/L) mg/[place] [address] [phone] Urine Creatinine 82.37 mg/dL Urine Microalbumin/Creatinine TNP <31 17 CBC Auto 07/11/2018 [facility] White Blood 6.9 10^3/uL Normal 3.5-10.[address] [place] [address] [phone] Red Blood Count 4.79 10^6/uL Normal 3.70-4.87 Hemoglobin 10.0 g/dL Low 12.0-16.0 Hematocrit 31 % Low 33-41 Mean Corpuscular Volume 65 fL Low 80-97 18 Mean Corpuscular Hemoglobin 21 pg Low 27-31 [...] % 0 Iron & Iron Binding 07/11/2018 [facility] Iron 24 g/dL Low 50-[address] [place] [address] [phone] Unsaturated Iron Binding < 465 g/dL Total Iron Binding Capacity 480 g/dL High 250-450 Transferrin 343 mg/dL Normal 203-362 % Iron Saturation 5 % Low 15-55 1 Troponin-I testing on Plasma Separator Tubes (PST) has a known false positive rate of 0.20-0.40%. All positive troponins reflex immediately to secondary confirmatory testing. Using the [employer] DxI 800 Access Immunoassay systems, the 99th percentile upper reference limit was demonstrated to be < 0.03 ng/mL. 2 [facility] Severe Sepsis and Septic Shock Management Bundle Measure requires all lactic acids initially measuring >2.0 mmol/L be repeated. 3 Because ethnic data is not always [...] failure <15 (or dialysis) 4 Verbal to [id number] by [id number] at 1446 on 12/22/18. Results read back accurately. Corrected Report. Result TnIDx:0.39 Called to [id number] at: 13:52:23 by:[id number] Read back by: [id number] CORRECTED REPORT --- Corrected on 12/22/18 1446 --- Troponin I previously reported as: 0.39 *C ng/mL Result TnIDx:0.39 Called to [id number] at: 13:52:23 by:[id number] Read back by: [id number] Troponin-I testing on Plasma Separator Tubes (PST) has a known false positive rate of 0.20-0.40%. All positive troponins reflex immediately to secondary confirmatory testing. Using the [employer] Access Immunoassay systems, the 99th percentile upper reference limit was demonstrated to be < 0.03 ng/mL. 5 Standard intensity warfarin therapeutic range: 2.0-3.0 High intensity warfarin therapeutic range: 2.5-3.5 6 Please note: The following may produce a false positive D Dimer test: - Rheumatoid factor greater than 60 IU/ml - Plasma hemoglobin greater than 0.05 gm/dl - Bilirubin greater than 50 mg/dl - Lipids greater than 1000 mg/dl - FDP greater than 20 ug/ml 7 Because ethnic data is not always readily [...] 15-29 5 Kidney failure <15 (or dialysis) 8 Therapeutic target for the treatment of diabetes mellitus patients is <7% HBA1C, and in selective patients <6.0%. Please refer to [place] [employer] diabetic care guidelines for further information. 9 Because ethnic data is not always readily [...] 15-29 5 Kidney failure <15 (or dialysis) 10 Mild microcytosis with limited RBC an elevated RDW. Differential diagnosis includes partially replete iron deficiency or less likely compensated hemoglobinopathy. Additional studies as clinically warranted. Reviewed by Dr. Villanueva 11 Desirable: <150 Borderline High: 150-199 High: 200-499 Very High: >500 12 Desirable: <200 Borderline High: 200-239 High: >239 13 Low: <40 Desirable: 40-60 High: >60 14 Desirable: <100 Near Optimal: 100-129 Borderline High: 130-159 High: 160-189 Very High: >189 15 Because ethnic data is not always readily [...] 15-29 5 Kidney failure <15 (or dialysis) 16 Therapeutic target for the treatment of diabetes mellitus patients is <7% HBA1C, and in selective patients <6.0%. Please refer to [place] [employer] diabetic care guidelines for further information. 17 Unable to calculate due to low microalbumin 18 Consistent with Previous Results Reported on 01/09/18 Procedures Date Code Description Status 12/30/2018 40227 EKG Tracing & Interpretation Completed 12/26/2018 67333 EKG Tracing & Interpretation Completed 09/26/2018 [id number] Diabetic Retinal Eye Exam Completed 08/01/2018 [id number] Mammogram Completed 03/11/2018 [id number] Colonoscopy Completed 09/26/2017 [id number] Diabetic Retinal Eye Exam Completed 03/15/2017 [id number] Diabetic Retinal Eye Exam Completed 12/07/2016 [id number] Mammogram Completed 09/07/2016 546781172 Diabetic Retinal Eye Exam Completed 12/02/2015 [id number] Mammogram Completed 11/19/2014 [id number] Mammogram Completed 06/28/2014 [id number] Diabetic Retinal Eye Exam Completed 11/20/2013 [id number] Mammogram Completed 09/09/2013 129963385 Diabetic Retinal Eye Exam Completed 11/13/2012 [id number] Mammogram Completed 08/20/2012 870792876 Diabetic Retinal Eye Exam Completed 05/15/2012 [id number] Mammogram Completed 12/26/2011 [id number] Mammogram Completed 12/13/2011 [id number] Mammogram Completed 08/31/2010 [id number] Colonoscopy Completed 11/13/2007 [id number] Mammogram Completed 05/14/2007 [id number] Mammogram Completed 10/18/2006 [id number] Mammogram Completed 05/07/2003 [id number] Mammogram Completed Medical Devices Description No Information Available Encounters Type Date Location Provider Dx Diagnosis Office Visit 12/26/2018 Marty Lau, R07.9 Chest pain, 2:00p Brandi Luna M.D. unspecified I45.4 Nonspecific intraventricular block I49.9 Cardiac arrhythmia, unspecified Office Visit 12/01/2018 8:40a Marty Kahn D64.9 Anemia, Brandi Lau M.D. unspecified Paramob R74.0 Nonspec elev of levels of transamns & lactic acid dehydrgnse E11.9 Type 2 diabetes mellitus without complications Office Visit 10/07/2018 8:45a [place] [facility] Donald Palmer J32.9 Chronic Services Of Marty Alvarado M.D. sinusitis, unspecified G43.009 Migraine w/o aura, not intractable, w/o status migrainosus G50.1 Atypical facial pain Office Visit 08/29/2018 8:40a [facility] Internal Criss D64.9 Anemia, Brandi Lau M.D. unspecified Ccmob E11.9 Type 2 diabetes mellitus without complications R74.0 Nonspec elev of levels of transamns & lactic acid dehydrgnse Office Visit 08/25/2018 Ricki Ahn, G43.009 Migraine w/o aura, 3:00p Neurologic NUCLEAR INSTRUCTOR not intractable, Services Of [facility] w/o status migrainosus Office Visit 07/18/2018 [facility] Internal Criss E11.42 Type 2 diabetes 9:00a Medicine - Cheryl Lau M.D. mellitus with diabetic polyneuropathy D50.9 Iron deficiency anemia, unspecified I10 Essential (primary) hypertension Z12.31 Encntr screen mammogram for malignant neoplasm of breast R06.02 Shortness of breath Assessments Date Code Description Provider 12/30/2018 I42.9 Cardiomyopathy, unspecified Danny Melchor M.D., [facility] 12/26/2018 R07.9 Chest pain, unspecified Criss Lau M.D. 12/26/2018 I45.4 Nonspecific intraventricular block Criss Lau M.D. 12/26/2018 I49.9 Cardiac arrhythmia, unspecified Criss Lau M.D. 12/22/2018 R06.02 Shortness of breath Ingrid Macedo DO 12/22/2018 F17.290 Nicotine dependence, other tobacco Ingrid Macedo DO product, uncomplicated 12/01/2018 D64.9 Anemia, unspecified Criss Lau M.D. 12/01/2018 R74.0 Nonspecific elevation of levels of Criss aLu M.D. transaminase and lactic acid dehydrogenase [LDH] 12/01/2018 E11.9 Type 2 diabetes mellitus without Criss Lau M.D. complications 10/07/2018 J32.9 Chronic sinusitis, unspecified Donald Alvarado M.D. 10/07/2018 G43.009 Migraine without aura, not Donald Alvarado M.D. intractable, without status migra 10/07/2018 G50.1 Atypical facial pain Donald Alvarado M.D. 08/29/2018 D64.9 Anemia, unspecified Criss Lau M.D. 08/29/2018 E11.9 Type 2 diabetes mellitus without Criss Lau M.D. complications 08/29/2018 R74.0 Nonspecific elevation of levels of Criss Lau M.D. transaminase and lactic a 08/25/2018 G43.009 Migraine without aura, not Jose Jimy, NUCLEAR INSTRUCTOR intractable, without status migra 07/18/2018 E11.42 Type 2 diabetes mellitus with Criss Lau M.D. diabetic polyneuropathy 07/18/2018 D50.9 Iron deficiency anemia, unspecified Criss Lau M.D. 07/18/2018 I10 Essential (primary) hypertension Criss Lau M.D. 07/18/2018 Z12.31 Encounter for screening mammogram for Criss Lau M.D. malignant neoplasm of 07/18/2018 R06.02 Shortness of breath Criss Lau M.D. Plan of Treatment Future Appointment(s):03/25/2019 10:15 am - Danny Melchor M.D., FACC, FASNC at [facility]03/17/2019 10:00 am - Traveling ECHO 1 at [facility]05/28/2019 1:20 pm - Criss Lau M.D. at [facility] BEDIVK01.9 Cardiomyopathy, unspecifiedNew Medication:Aldactone 25 mg - take one half tablet (12.5 mg) per dayNew Labs:BMP Basic Metabolic Panel (8), Ordered: New Orders:Echocardiogram, Ordered: 12/30/18Comments:As discussed, I will add Aldactone to your heart care regimen to help your heart get stronger. Please get blood work I have ordered for you 1 week after starting Aldactone. Call me if feel lightheaded.I will recheck you heart function in mid March 2019.Follow up:after TOE in March 2019. Functional Status Description No Information Available Mental Status Description No Information Available Referrals Refer to Reason for Referral Status Appt Date [facility] Sent [address] [place] [address] [phone]
--- OUTSIDE RECORDS SUMMARY | 2019-01-28 19:07 | XMS REPORT | Continuity of Care Document ---
:1960 External Reference #:[id number] Author Name Ingrid Macedo DO (transmitted by agent of provider Lianne Chavez) Address [address] [place] [id number] Care Team Providers Name Role Phone Criss Lau MD - Internal Care Team Information Community Outreach Coordinator [phone] Medicine Luda Craig MD - Obstetrics & Care Team Information Community Outreach Coordinator Gynecology carissaDiana Betancourt M.D. - Single Care Team Information Community Outreach Coordinator [facility] - Mental Care Team Information Community Outreach Coordinator [facility] E[facility] - Clinic/Center Care Team Information Community Outreach Coordinator [phone] Roland Rey MD - Care Team Information Community Outreach Coordinator [phone] Otolaryngology Problems Active Problems Provider Date Type 2 diabetes mellitus Felicity Negrete M.D., FACP Onset: 07/13/2010 Pure hypercholesterolemia Felicity Negrete M.D., FACP Onset: 07/13/2010 Benign essential hypertension Felicity Negrete M.D., FACP Onset: 07/13/2010 Migraine without aura, not refractory Cherelle Francis M.D. Onset: 2014 Cardiomyopathy Danny Melchor M.D., [facility], Onset: 12/30/2018 [facility] Social History Type Date Description Comments [...] Atorvastatin Calcium 1 by mouth every E78.5 [facility], 12/24/2018 day M.D. 40mg Tablets Carvedilol 1 by mouth twice 180tabs [facility], 12/24/2018 6.25mg a day M.D. Tablets Lisinopril 1 by mouth every 90tabs [facility], 12/24/2018 2.5mg day M.D. Tablets Ferrous Gluconate take 1 tablet by 30tabs D50.9 [facility], 2018 mouth once daily M.D. 324(38Fe) mg Tablets i Esomeprazole Take One Capsule 90caps [facility], 06/04/2018 Magnesium By Mouth Every M.D. 40mg Capsules Day DR Lashell Erickson For daily use Dx 1units R26.81 [facility], 08/27/2017 r 26.81 M.D. Vitamin B12 1 by mouth every 30tabs R26.81 [facility], 02/11/2017 1000mcg day M.D. Tablets ER Walker 4 wheels, 1units R26.81 [facility], 01/11/2017 [facility] [place], seat and M.D. basket. r26.81 G62.9 Miralax 17 gm every day 510units R10.13 [facility], 11/17/2015 3350NF Powder mixed w/ 8 oz M.D. water/juice as needed Gabapentin Take One Capsule By 90caps E11.40 [facility], 02/25/2015 100mg Mouth Twice A Day M.D. Capsules Epipen 2-Clifford for use as directed 1units [facility], 02/15/2015 M.D. 0.3mg/0.3ML Solution Auto-Inject Aspirin 1 by mouth once 90tabs [facility], 12/16/[address] daily M.D. Citalopram take one tablet by 135tabs Criss Sid, 11/28/2011 Hydrobromide mouth once daily M.D. 20mg [...] CPT Code Status Date Vaccine Lot # [id number] Given 01/17/2018 Influenza Virus Vaccine, Quadrivalent, Split, [id number] Preservative Free 23820 Given 02/16/2016 Influ Virus Vaccine, Quadrivalent, Split Virus, [id number] [address] Given 01/21/2015 Influenza Virus Vaccine, Quadrivalent, Split, [id number] Preservative Free 33945 Given 01/24/2014 Flu Vaccine Split Virus Preservative Free For Indiv 3Yr Older 08093 Given 11/28/2011 Pneumonia Vaccine [id number] Given 03/21/2011 Afluria Vaccine [id number] 94876 Given 12/30/2009 Influenza Virus 3Yrs & Over 37697 Given 02/28/2009 Influenza Virus Vaccine, Pandemic Formulation 04219 Given 02/24/2009 Influenza Virus 3Yrs & Over 87079 Given 02/26/2008 Influenza Virus 3Yrs & Over 17721 Given 02/26/2008 Influenza Virus 3Yrs & Over 57049 Given 03/13/2007 Influenza Virus 3Yrs & Over 59633 Given 03/13/2007 Influenza Virus 3Yrs & Over 73477 Given 02/22/2006 Influenza Virus 3Yrs & Over [...] Result H/L Range Note Laboratory test 12/26/2018 [facility] Troponin-I 0.02 ng/mL < 0.[address] (TnI) [place] [address] [phone] Laboratory test 12/26/2018 [facility] Lactic Acid 0.9 mmol/L Normal 0.5-2.[address] [place] [address] [phone] CBC Auto Diff 12/26/2018 [facility] White Blood 7.8 10^3/uL Normal 3.5-10.[address] [place] [address] [phone] Red Blood Count 4.82 10^6/uL Normal 3.70-4.87 [...] Blood Cells % 0.1 Comp Metabolic 12/26/2018 [facility] Sodium 138 mmol/L Normal 135-[address] [place] [address] [phone] Potassium 3.7 mmol/L Normal 3.5-5.0 Chloride 106 [...] Egfr 117.4 >60 3 CBC Auto 12/22/2018 [facility] White Blood 7.1 10^3/uL Normal 3.5-10.[address] [place] [address] [phone] Red Blood Count 4.86 10^6/uL Normal 3.70-4.87 [...] Blood Cells % 0.0 Laboratory test 12/22/2018 [facility] Troponin-I (TnI) 0.03 ng/ mL <0.04 4 finding [address] [place] [address] [phone] B-Type Natriuretic Peptide BNP 248 pg/mL High <=100 Inr/Protime 12/22/2018 [facility] Inr 1.03 Normal 0.82-1.09 5 [address] [place] [address] [phone] Laboratory test 12/22/2018 [facility] Partial 38.7 High 26.0- 38.0 finding 101 [facility] [place] [address] Time PTT [phone] D Dimer Quantitative 453 ng/mL High Less Than 230 6 Comp Metabolic 12/22/2018 [facility] Sodium 139 mmol/L Normal 135-145 Panel [address] [place] [address] [phone] Potassium 3.8 mmol/L Normal 3.5-5.0 Chloride 107 [...] Egfr 129.2 >60 7 Laboratory test 11/22/2018 [facility] Hemoglobin A1c 6.5 % High 4.0-5.6 [address] (Glyco HGB) [place] [address] [phone] Comp Metabolic 11/22/2018 [facility] Sodium 139 Normal 135- [address] mmol/[place] [address] [phone] Potassium 4.2 mmol/L Normal 3.5-5.0 Chloride 105 [...] Egfr 140.3 >60 9 CBC Auto 11/22/2018 [facility] White Blood 7.0 10^3/uL Normal 3.5-10.[address] [place] [address] [phone] Red Blood Count 4.71 10^6/uL Normal 3.70-4.87 [...] Blood Cells % 0.1 CBC Auto 08/22/2018 [facility] White Blood 6.1 10^3/uL Normal 3.5-10.[address] Count [place], [place] [address] [phone] Red Blood Count 5.33 10^6/uL High 3.70-4.87 [...] % 0.1 Iron & Iron Binding 08/22/2018 [facility] Iron 88 g/dL Normal 50-212 [address] [place] [address] [phone] Unsaturated Iron Binding < 404 g/dL Total Iron Binding Capacity 419 g/dL Normal 250-450 Transferrin 299 mg/dL Normal 203-362 % Iron Saturation 21 % Normal 15-55 Laboratory test 08/22/2018 [facility] B-Type 50 pg/mL <=[address] [facility] [place] [address] Peptide BNP [phone] Liver Function 08/22/2018 [facility] Total Protein 7.5 g/dL Normal 6.4-8.9 Panel [address] [place] [address] [phone] Albumin 4.0 g/dL Normal 3.2-5.2 Globulin 3.5 g/dL Normal 2-4 Albumin/Globulin Ratio 1.1 Normal 1-3 Total Bilirubin 1.30 mg/dL High 0.2-1.0 Direct Bilirubin 0.20 mg/dL High 0.03-0.18 Indirect Bilirubin 1.1 mg/dL High 0.3-1.0 Alkaline Phosphatase 122 U/L High 34-104 Alt 14 U/L Normal 7-52 Ast 13 U/L Normal 13-39 Laboratory test 08/22/2018 [facility] Pathologist Review (SEE NOTE) 10 finding [address] [place] [address] [phone] Lipid Profile 07/11/2018 [facility] Triglycerides 138 mg/dL 11 (Trig/Chol/HDL) [address] [place] [address] [phone] Cholesterol 153 mg/dL 12 HDL Cholesterol 73.9 mg/dL 13 LDL Cholesterol 52 mg/dL 14 Comp Metabolic 07/11/2018 [facility] Sodium 138 mmol/L Normal 135-145 Panel [address] [place] [address] [phone] Potassium 4.2 mmol/L Normal 3.5-5.0 Chloride 106 [...] Egfr 140.3 >60 15 Laboratory test 07/11/2018 [facility] Hemoglobin A1c 6.0 % High 4.0-5.6 [address] (Glyco HGB) [place] [address] [phone] Urine 07/11/2018 [facility] Ur Microalbumin < 15.[address] (mg/L) mg/[place] [address] [phone] Urine Creatinine 82.37 mg/dL Urine Microalbumin/Creatinine TNP <31 17 CBC Auto 07/11/2018 [facility] White Blood 6.9 10^3/uL Normal 3.5-10.[address] [place] [address] [phone] Red Blood Count 4.79 10^6/uL Normal 3.70-4.87 [...] % 0 Iron & Iron Binding 07/11/2018 [facility] Iron 24 g/dL Low 50-[address] [place] [address] [phone] Unsaturated Iron Binding < 465 g/dL Total Iron Binding Capacity 480 g/dL High 250-450 Transferrin 343 mg/dL Normal 203-362 % Iron Saturation 5 % Low 15-55 1 Troponin-I testing on Plasma Separator Tubes (PST) has a known false positive rate of 0.20-0.40%. All positive troponins reflex immediately to secondary confirmatory testing. Using the [employer] DxI 800 Access Immunoassay systems, the 99th percentile upper reference limit was demonstrated to be < 0.03 ng/mL. 2 [facility] Severe Sepsis and Septic Shock Management [...] failure <15 (or dialysis) 4 Verbal to [id number] by [id number] at 1446 on 12/22/18. Results read back accurately. Corrected Report. Result TnIDx:0.39 Called to [id number] at: 13:52:23 by:[email or web address] Read back by: [id number] CORRECTED REPORT --- Corrected on 12/22/18 1446 --- Troponin I previously reported as: 0.39 *C ng/mL Result TnIDx:0.39 Called to [id number] at: 13:52:23 by:[id number] Read back by: [email or web address] Troponin-I testing on Plasma Separator Tubes (PST) has a known false positive rate of 0.20-0.40%. All positive troponins reflex immediately to secondary confirmatory testing. Using the [employer] DxI 800 Access Immunoassay systems, the 99th [...] in selective patients <6.0%. Please refer to [place] Diabetes Association diabetic care guidelines for further [...] in selective patients <6.0%. Please refer to [place] Diabetes Association diabetic care guidelines for further information. 17 Unable to calculate due to low microalbumin 18 Consistent with Previous Results Reported on 01/09/18 Procedures Date Code Description Status 12/30/2018 77300 EKG Tracing & Interpretation Completed 12/26/2018 25953 EKG Tracing & Interpretation Completed 12/23/2018 70321 Echocardiogram, Limited Study Completed 12/23/2018 47266 Treadmill Interp/Report Only Completed 12/23/2018 25514 Stress Test Supervsn W/Out I/R Completed 12/22/2018 03716 ECHO Transthorasic Realtime 2D W Doppler & Color Flow Completed Hosp 09/26/2018 943949113 Diabetic Retinal Eye Exam Completed 08/01/2018 47696591 Mammogram Completed 03/11/2018 07665987 Colonoscopy Completed 09/26/2017 918014883 Diabetic Retinal Eye Exam Completed 03/15/2017 060599793 Diabetic Retinal Eye Exam Completed 12/07/2016 73511494 Mammogram Completed 09/07/2016 635117330 Diabetic Retinal Eye Exam Completed 12/02/2015 30420161 Mammogram Completed 11/19/2014 31605995 Mammogram Completed 06/28/2014 585317887 Diabetic Retinal Eye Exam Completed 11/20/2013 75299156 Mammogram Completed 09/09/2013 320383653 Diabetic Retinal Eye Exam Completed 11/13/2012 27289676 Mammogram Completed 08/20/2012 109010480 Diabetic Retinal Eye Exam Completed 05/15/2012 11475764 Mammogram Completed 12/26/2011 72422724 Mammogram Completed 12/13/2011 29358229 Mammogram Completed 08/31/2010 35633912 Colonoscopy Completed 11/13/2007 88307917 Mammogram Completed 05/14/2007 38041179 Mammogram Completed 10/18/2006 96417746 Mammogram Completed 05/07/2003 23436473 Mammogram Completed Medical Devices Description No Information Available Encounters Type Date Location Provider Dx Diagnosis Office Visit 12/30/2018 [facility] Danny Montana I42.9 Cardiomyopathy, 1:15p Of Marty Melchor M.D., unspecified FACC, FASNC I77.810 Thoracic aortic ectasia R94.31 Abnormal electrocardiogram [ECG] [EKG] Office Visit 12/26/2018 2:00p [facility] Criss R07.9 Chest pain, Medicine - Cotton, M.D. unspecified Ccmob I45.4 Nonspecific intraventricular block I49.9 Cardiac arrhythmia, unspecified Office Visit 12/23/2018 [facility] Elif Rowanulx, I42.9 Cardiomyopathy, 10:46a Assoc,pc KAIAKO KURA TUARUA unspecified Hospitalists R07.9 Chest pain, unspecified Office Visit 12/22/2018 [facility] Nino I42.9 Cardiomyopathy, 10:46a Assoc,pc PRECIOUS Ding unspecified Hospitalists R07.9 Chest pain, unspecified R06.02 Shortness of breath Office Visit 12/22/2018 11:00a [facility] Internal Ingrid Macedo, R06.02 Shortness of Medicine - Suite DO breath R F17.290 Nicotine dependence, other tobacco product, uncomplicated Office Visit 12/01/2018 8:40a [facility] Internal Criss D64.9 Anemia, Brandi Lau M.D. unspecified Ccmob R74.0 Nonspec elev of levels of transamns & lactic acid dehydrgnse E11.9 Type 2 diabetes mellitus without complications Office Visit 10/07/2018 8:45a [facility] Donald S. J32.9 [facility] Tom Alvarado sinusitis, unspecified G43.009 Migraine w/o aura, not intractable, w/o status migrainosus G50.1 Atypical facial pain Office Visit 08/29/2018 8:40a [facility] Internal Criss D64.9 Anemia, Brandi Lau M.D. unspecified Ccmob E11.9 Type 2 diabetes mellitus without complications R74.0 Nonspec elev of levels of transamns & lactic acid dehydrgnse Office Visit 08/25/2018 [facility] Jose Ahn, G43.009 Migraine w/o aura, 3:00p Neurologic KAIAKO KURA TUARUA not intractable, [facility] w/o status migrainosus Office Visit 07/18/2018 [facility] Internal Criss E11.42 Type 2 diabetes 9:00a Brandi Lau M.D. mellitus with diabetic polyneuropathy D50.9 Iron deficiency anemia, unspecified I10 Essential (primary) hypertension Z12.31 Encntr screen mammogram for malignant neoplasm of breast R06.02 Shortness of breath Assessments Date Code Description Provider 12/30/2018 I42.9 Cardiomyopathy, unspecified Danny Melchor M.D., [facility], [facility] 12/30/2018 I77.810 Thoracic aortic ectasia Danny Melchor M.D., [facility], [facility] 12/30/2018 R94.31 Abnormal electrocardiogram [ECG] Danny Melchor M.D., [facility], [EKG] [facility] 12/26/2018 R07.9 Chest pain, unspecified Criss Lau M.D. 12/26/2018 I45.4 Nonspecific intraventricular block Criss Lau M.D. 12/26/2018 I49.9 Cardiac arrhythmia, unspecyo Lau M.D. 12/23/2018 I42.9 Cardiomyopathy, unspecified Elif Mary, KAIAKO KURA TUARUA 12/23/2018 R07.9 Chest pain, unspecified Elif Mary, KAIAKO KURA TUARUA 12/22/2018 R94.31 Abnormal electrocardiogram [ECG] Danny Melchor M.D., [facility], [EKG] [facility] 12/22/2018 R07.89 Other chest pain Danny Melchor M.D., [facility], [facility] 12/22/2018 I42.9 Cardiomyopathy, unspecified Danny Melchor M.D., [facility], [facility] 12/22/2018 I42.9 Cardiomyopathy, unspecified Nino Ding, PRECIOUS 12/22/2018 R06.02 Shortness of breath Ingrid Macedo DO 12/22/2018 R07.9 Chest pain, unspecified Nino Ding, PRECIOUS 12/22/2018 F17.290 Nicotine dependence, other tobacco Ingrid Macedo DO product, uncomplicated 12/22/2018 R06.02 Shortness of breath Nino Ding, PRECIOUS 12/01/2018 D64.9 Anemia, unspecified Criss Lau M.D. [...] 08/25/2018 G43.009 Migraine without aura, not Jose Knaake, KAIAKO KURA TUARUA intractable, without status migra 07/18/2018 E11.42 Type [...] Appointment(s):03/25/2019 10:15 am - Danny Melchor M.D., OLY, FASNC at [facility]03/17/2019 10:00 am - Traveling ECHO 1 at [facility]05/28/2019 1:20 pm - Criss Lau M.D. at [facility] KIJJRS37.9 Cardiomyopathy, unspecifiedNew Medication:Aldactone 25 mg - take one half tablet (12.5 mg) per dayNew Orders:Echocardiogram, Ordered: 12/30/18Comments:As discussed, I will add Aldactone to your heart care regimen to help your heart get stronger. Please get blood work I have ordered for you 1 week after starting Aldactone. Call me if feel lightheaded.I will recheck you heart function in mid March 2019.Follow up:after TOE in March 2019.I77.810 Thoracic aortic vxgqfrcG20.31 Abnormal electrocardiogram [ECG] [EKG] Functional Status Description No Information Available Mental Status Description No Information Available Referrals Refer to Reason for Referral Status Appt Date [facility] Sent 2 [facility] [place] [address] [phone]
[2019-01-28] MEDS ORDERED: Lidocaine 2% VISCOUS* 15 ML UDC PO ONE (19:48)
[2019-01-28] MEDS ORDERED: Al Hydrox/Mg Hydrox/Simet LIQ* 30 ML UDC ONE (19:53)
[2019-01-28] MEDS ORDERED: Lidocaine 2% VISCOUS* 15 ML UDC ONE (19:53)
[2019-01-28] MEDS ORDERED: Al Hydrox/Mg Hydrox/Simet LIQ* 30 ML UDC PO ONE (19:59)
[2019-01-28 21:53] VITALS: BP 121/77
== END 2019-01-28 21:44 | disposition home or self-care (01) ==
LOC: ED 17:23
DX: J06.9 Acute upper respiratory infection, unspecified (principal); R06.02 Shortness of breath; R07.9 Chest pain, unspecified; E11.9 Type 2 diabetes mellitus without complications; E78.00 Pure hypercholesterolemia, unspecified; I11.0 Hypertensive heart disease with heart failure; I50.9 Heart failure, unspecified; K21.9 Gastro-esophageal reflux disease without esophagitis; F17.290 Nicotine dependence, other tobacco product, uncomplicated; Z79.82 Long term (current) use of aspirin; Z79.84 Long term (current) use of oral hypoglycemic drugs; Z79.899 Other long term (current) drug therapy
CPT/HCPCS: 36415; 71045; 80053; 83880; 84484; 85025; 93005; 99284; A9270-GY

== ENCOUNTER 2019-03-26 12:47 | Emergency (ER) | payer MEDICARE, MEDICAID ==
--- NOTE | 2019-03-26 13:19 | ED ---
HPI Chest Pain - HPI Summary HPI Summary: This patient is a 58 year old F BIBA via EMS to ED with a chief complaint of sudden onset chest pain that has been constant since 1130 this morning. The pain does not radiate. Patient was wrapping Andrea presents when this started. Patient vapes tobacco. The patient rates the pain 5/10 in severity. Symptoms aggravated by nothing. Symptoms alleviated by nothing. Patient reports mild shortness of breath, chronic cough, mild burning when urinating. Patient denies diaphoresis, dizziness, nausea, vomiting, diarrhea, fevers, chills, headaches, abdominal pain, edema. - History of Current Complaint Chief Complaint: EDChestPainROMI Time Seen by Provider: 03/26/19 12:51 Hx Obtained From: Patient Onset/Duration: Started Hours Ago - At 1130, Still Present Time of Onset: 11:30 Timing: Constant, Lasting Hours - Since 1130 Initial Severity: Moderate Current Severity: Moderate Pain Intensity: 5 Pain Scale Used: 0-10 Numeric Chest Pain Radiates: No Aggravating Factor(s): Nothing Alleviating Factor(s): Nothing Associated Signs and Symptoms: Positive: Negative - diaphoresis, dizziness, nausea, vomiting, diarrhea, fevers, chills, headaches, abdominal pain, edema, Shortness of Breath, Cough - Additional Pertinent History Primary Care Physician: [id number] - Allergy/Home Medications Allergies/Adverse Reactions: Allergies Allergy/AdvReac Type Severity Reaction Status Date / Time bee venom protein (honey bee) Allergy Mild Edema Verified 03/26/19 13:17 Penicillins Allergy Mild Edema Verified 03/26/19 13:17 Home Medications: Home Medications Atorvastatin* [Lipitor 40 MG*] 40 mg PO DAILY 03/26/19 [History Confirmed ] Cyanocobalamin TAB* [Vitamin B12 TAB*] 1,000 mcg PO DAILY 03/26/19 [History Confirmed 03/26/19] Ferrous Gluconate TAB* [Fergon TAB*] 324 mg PO DAILY 03/26/19 [History Confirmed 03/26/19] Spironolactone TAB* [Aldactone TAB*] 12.5 mg PO DAILY 03/26/19 [History Confirmed 03/26/19] PMH/Surg Hx/FS Hx/Imm Hx Previously Healthy: Yes Endocrine/Hematology History: Reports: Hx Diabetes - TYPE 2 Cardiovascular History: Reports: Hx Angina, Hx Hypercholesterolemia, Hx Hypertension - ON MEDS Denies: Hx Myocardial Infarction, Other Cardiovascular Problems/Disorders Respiratory History: Reports: Other Respiratory Problems/Disorders - emphysema Denies: Hx Asthma, Hx Chronic Obstructive Pulmonary Disease (COPD) GI History: Reports: Hx Gastroesophageal Reflux Disease Denies: Other GI Disorders History: Denies: Hx Chronic Renal Failure, Hx Dialysis, Hx Renal Disease Musculoskeletal History: Reports: Hx Arthritis - left wrist, Hx Tendonitis - RIGHT HAND Sensory History: Reports: Hx Contacts or Glasses - GLASSES Denies: Hx Hearing Aid Opthamlomology History: Reports: Hx Contacts or Glasses - GLASSES Neurological History: Reports: Hx Headaches, Hx Migraine Denies: Other Neuro Impairments/Disorders - Cancer History Hx Chemotherapy: No Hx Radiation Therapy: No - Surgical History Surgical History: Yes Surgery Procedure, Year, and Place: RIGHT WRIST, 2010, [facility]. GALLBLADDER, 1984, [facility]. 03/18/12, LEFT ELBOW, [facility]. 06/2016, abdominal surgery, [facility] Hx Anesthesia Reactions: No - Immunization History Immunizations Up to Date: Yes Infectious Disease History: No Infectious Disease History: Denies: Traveled Outside the [place] in Last 30 Days - Family History Known Family History: Negative: Cardiac Disease, Diabetes - Social History Occupation: Unemployed Lives: Alone Alcohol Use: None Hx Substance Use: No Substance Use Type: Reports: None Substance Use Comment - Amount & Last Used: vape Hx Tobacco Use: Yes - OCCASIONALLY Smoking Status (MU): Light Every Day Tobacco Smoker Type: Cigarettes, eCigarettes Amount Used/How Often: 2-3 CIGS A DAY Have You Smoked in the Last Year: Yes Review of Systems Negative: Fever, Chills, Skin Diaphoresis Positive: Chest Pain Negative: Abdominal Pain, Vomiting, Diarrhea, Nausea Positive: burning - Mild Negative: Edema Neurological: Negative - Dizziness Negative: Headache All Other Systems Reviewed And Are Negative: Yes Physical Exam - Summary Physical Exam Summary: Constitutional: Obese, Alert. (-) Distressed Skin: Warm, Dry HENT: Atraumatic, no front teeth Eyes: Conjunctiva normal Neck: Musculoskeletal ROM normal neck. (-) JVD, (-) Stridor, (-) Tracheal deviation Cardio: Rhythm regular, rate normal, Heart sounds normal; Intact distal pulses; The pedal pulses are 2+ and symmetric. Radial pulses are 2+ and symmetric. Pulmonary/Chest wall: Effort normal. (-) Respiratory distress, (-) Wheezes, (-) Rales Abd: Soft, (-) tenderness, (-) Distension, (-) Guarding, (-) Rebound Musculoskeletal: (-) Edema Neuro: Alert, Oriented x3 Psych: Mood and affect Normal Triage Information Reviewed: Yes Vital Signs On Initial Exam: Initial Vitals Temp Pulse Resp BP Pulse Ox 97.3 F 93 14 126/63 99 03/26/19 12:52 03/26/19 12:52 03/26/19 12:52 03/26/19 12:52 03/26/19 12:52 Vital Signs Reviewed: Yes Procedures - Sedation Patient Received Moderate/Deep Sedation with Procedure: No Diagnostics - Vital Signs Vital Signs Temp Pulse Resp BP Pulse Ox 03/26/19 12:52 97.3 F 93 14 126/63 99 - Laboratory Result Diagrams: 03/26/19 14:45 03/26/19 14:45 Lab Statement: Any lab studies that have been ordered have been reviewed, and results considered in the medical decision making process. - Radiology CXR Radiology Interpretation Completed By: Radiologist Summary of Radiographic Findings: Cardiomegaly. No active cardiopulmonary disease is noted. Dr. Jordan has reviewed this radiology report. - EKG 1302 Cardiac Rate: NL - 95 BPM EKG Rhythm: Sinus Rhythm EKG Comparison: No Significant Change - Worse prolonged QTc Summary of EKG Findings: An EKG at 1302 revealed NSR at 95 BPM, prolonged QTc ( from 502 to 542), anterior Q-waves old, non-specific intraventricular conduction block, no STEMI. Dr. Jordan has reviewed this radiology report. Chest Pain Course/Dx - Course Course Of Treatment: This patient is a 58 year old F BIBA via EMS to ED with a chief complaint of sudden onset chest pain that has been constant since 1130 this morning. In the ED course, patient received aspirin. An EKG at 1302 revealed NSR at 95 BPM, prolonged QTc (from 502 to 542), anterior Q-waves old, non-specific intraventricular conduction block, no STEMI. CXR revealed: Cardiomegaly. No active cardiopulmonary disease is noted. Blood work revealed RBC 5.28, MCH 26, RDW 16, APTT 40.3, BNP 183. Her first and second Troponin were both negative and showed no signs of abnormalities. She will be discharged home with a Dx of CP and SOB and instructed to follow up with her PCP in the next 1-3 days. - Diagnoses Provider Diagnoses: Chest pain, SOB (shortness of breath), Tobacco abuse Discharge ED - Sign-Out/Discharge Documenting (check all that apply): Patient Departure - discharge - Discharge Plan Condition: Stable Disposition: HOME Patient Education Materials: Chest Pain (ED), Shortness of Breath (ED), Electronic Cigarettes and Your Health (ED) Referrals: Criss Lau MD [Primary Care Provider] - 3 Days Additional Instructions: Due to the following laboratory results you do not seem to be experiencing any form of cardiac emergency. Your EKG and chest X-Ray you received today shows no signs of any heart disease or any issues. You received a recent CT of your chest which was also negative and did not require any follow up imaging. Due to your chief complaints of chest pain and your history of vaping, I recommend that you stop vaping to avoid any other forms of tightness about your chest. Please follow up with your primary care physician in 1-3 days and return to the emergency department for any new or worsening symptoms. - Billing Disposition and Condition Condition: STABLE Disposition: Home - Attestation Statements Document Initiated by Ramy: Yes Documenting Scribe: iJmmy Engle Provider For Whom Ramy is Documenting (Include Credential): Gera Jordan MD Scribe Attestation: Dalton Kang Marco DiSanto, scribed for Gera Jordan MD on 03/26/19 at 1900. Scribe Documentation Reviewed: Yes Provider Attestation: The documentation as recorded by the Dalton lee Marco DiSanto accurately reflects the service I personally performed and the decisions made by , Gera Jordan MD Status of Scribe Document: Viewed
[2019-03-26] MEDS ORDERED: Aspirin 81 mg CHEW TAB* 81 MG TAB.CHEW PO ONE (13:20)
--- OUTSIDE RECORDS SUMMARY | 2019-03-26 14:33 | XMS REPORT | Continuity of Care Document ---
:1960 External Reference #:[id number] Author Name Danny Melchor M.D., [facility], [facility] (transmitted by agent of provider Arminda Taveras) Address [address] [place] [address] Care Team Providers Name Role Phone Criss Lau MD - Internal Care Team Information Artist Representative Medicine Luda Craig MD - Obstetrics & Care Team Information Artist Representative Gynecology carissaDiana Betancourt M.D. - Single Care Team Information Artist Representative [facility] - Mental Care Team Information Artist Representative [facility] ENT - Clinic/Center Care Team Information Artist Representative [phone] Roland Rey MD - Care Team Information Artist Representative [phone] Otolaryngology Brittaney Altamirano O.D. - Slitting And Shipping Supervisor Care Team Information Artist Representative Problems Active Problems Provider Date Type 2 diabetes mellitus Felicity Negrete M.D., FACP Onset: 07/13/2010 Pure hypercholesterolemia Felicity Negrete M.D., FACP Onset: 07/13/2010 Benign essential hypertension Felicity Negrete M.D., FACP Onset: 07/13/2010 Migraine without aura, not refractory Cherelle Francis M.D. Onset: 2014 Cardiomyopathy Danny Melchor M.D., [facility], Onset: 12/30/2018 [facility] Social History Type Date Description Comments Sex Unknown Tobacco Use Start: Unknown End: Former Cigarette Smoker quit in 2013, started Unknown in her teens, never smoked more than 4 cigarettes in a day, usually less. Quit in 2015 (40 yr) ETOH Use Denies alcohol use Tobacco Use Start: Unknown End: Patient is a former Unknown smoker Smoking Status Reviewed: 02/27/19 Patient is a former smoker Exercise Does not exercise Type/Frequency Allergies, Adverse Reactions, Alerts Active Allergies Reaction Severity Comments Date Penicillin swelling 11/02/2009 Bee Sting 11/02/2009 Losartan cough 07/25/2015 Lisinopril cough 07/25/2015 Medications Active Medications SIG Qnty Indications Ordering Provider Date Famotidine 1 by mouth twice 60tabs K21.9 Anni Varn, 02/27/2019 20mg Tablets a day N.P. Epipen 2-Clifford use as directed 2units Criss Lau, 01/30/2019 M.D. 0.3mg/0.3ML Solution Auto-Inject Aldactone take one half 90tabs I42.9 Danny Melchor, 12/30/2018 25mg Tablets tablet (12.5 mg) M.DTroy, FACC, FASNC per day Atorvastatin Calcium 1 by mouth every E78.5 Criss Lau, 12/24/2018 day M.D. 40mg Tablets Carvedilol 1 by mouth twice 180tabs Criss Lau, 12/24/2018 6.25mg a day M.D. Tablets Aspirin Ec Low Dose Every Day Unknown 12/22/2018 81mg Tablets Citalopram Every Day Unknown 12/22/2018 Hydrobromide 20mg Tablets Ferrous Gluconate take 1 tablet by 30tabs D50.9 Criss Lau, 2018 mouth once daily M.D. 324(38Fe) mg Tablets i Esomeprazole Take One Capsule 90caps Criss Lau, 06/04/2018 Magnesium By Mouth Every M.D. 40mg Capsules Day DR Lobo Chair For daily use Dx 1units R26.81 Criss Lau, 08/27/2017 r 26.81 M.D. Latanoprost Every Evening Brittaney Altamirano, 03/29/2017 0.005% O.D. Solution Vitamin B12 1 by mouth every 30tabs R26.81 Criss Lau, 02/11/2017 1000mcg day M.D. Tablets ER Walker 4 wheels, 1units R26.81 [facility], 01/11/2017 [facility] brakes, seat and M.D. basket. r26.81 G62.9 Miralax 17 gm every day 510units R10.13 [facility], 11/17/2015 3350NF Powder mixed w/ 8 oz M.D. water/juice as needed Gabapentin Take One Capsule By 90caps E11.40 Crissfelisha Lau, 02/25/2015 100mg Mouth Three Times A M.D. Capsules Day Aspirin 1 by mouth once 90tabs [facility], 12/16/[address] daily M[address]D. [address] Metformin HCL ER Take One Tablet By 90tabs Criss Lau, 08/30/2011 Mouth Every Day M.D. 500mg Tablets ER 24HR History Medications Azithromycin two tabs day 6tabs R05 Anni Vieira, 02/27/2019 - 250mg one, one daily N.P. 03/09/2019 Tablets till gone Medrol 6 by mouth day 21units R05 Anni Vieira, 02/27/2019 - 4mg TBPK 1, 5 by mouth N.P. 03/05/2019 day 2, 4 by mouth day 3, 3 by mouth day 4, 2 by mouth day 5, 1 by mouth day 6 Benzonatate one by mouth 30caps R05 Anni Vieira, 02/27/2019 - 200mg three times N.P. 03/13/2019 Capsules daily as needed for cough Doxycycline Hyclate 1 tab by mouth 14tabs 5 Crissfelisha Lua, 2018 - twice a day M.D. 02/06/2019 100mg Tablets for 7 days Lisinopril 1 by mouth 90tabs Criss Sid, 12/24/2018 - 2.5mg every day M.D. 01/30/2019 Tablets Albuterol Sulfate HFA inhale 2 puffs 8.500gm R06.02 Ingrid Macedo, 2018 - by mouth every DO 12/22/2018 108(90Base) mcg/Act 4 to 6 hours Aerosol if needed Epinephrine Once Unknown 12/22/2018 - 0.3mg/0.3ML 01/30/2019 Solution Auto-Inject Metformin HCL ER Every Day Unknown 12/22/2018 - 500mg 01/30/2019 Tablets ER 24HR Medications Administered in Office Medication SIG Qnty Indications Ordering Provider Date Depomedrol 40MG Roberta Blackwood M.D. 03/20/2017 Injection Depomedrol 40MG Roberta Blackwood M.D. 05/21/2016 Injection Depomedrol 80MG Roberta Blackwood M.D. 07/29/2014 Injection Immunizations CPT Code Status Date Vaccine Lot # 31216 Given 01/17/2018 Influenza Virus Vaccine, Quadrivalent, Split, [id number] Preservative Free [id number] Given 02/16/2016 Influ Virus Vaccine, Quadrivalent, Split Virus, [id number] [address] Given 01/21/2015 Influenza Virus Vaccine, Quadrivalent, Split, [id number] Preservative Free 41188 Given 01/24/2014 Flu Vaccine Split Virus Preservative Free For Indiv 3Yr Older 95443 Given 11/28/2011 Pneumonia Vaccine [id number] Given 03/21/2011 Afluria Vaccine [id number] 77152 Given 12/30/2009 Influenza Virus 3Yrs & Over 74157 Given 02/28/2009 Influenza Virus Vaccine, Pandemic Formulation 26256 Given 02/24/2009 Influenza Virus 3Yrs & Over 37419 Given 02/26/2008 Influenza Virus 3Yrs & Over 48519 Given 02/26/2008 Influenza Virus 3Yrs & Over 63048 Given 03/13/2007 Influenza Virus 3Yrs & Over 47756 Given 03/13/2007 Influenza Virus 3Yrs & Over 14502 Given 02/22/2006 Influenza Virus 3Yrs & Over Vital Signs Date Vital Result Comment 02/27/2019 1:28pm Height 63 inches 5'3" Weight 183.12 lb Heart Rate 91 /min BP Systolic 105 mmHg BP Diastolic 63 mmHg Body Temperature 97.9 F O2 % BldC Oximetry 99 % BMI (Body Mass Index) 32.4 kg/m2 02/06/2019 3:35pm Height 63 inches 5'3" Weight 186.00 lb Heart Rate 86 /min BP Systolic Sitting 142 mmHg BP Diastolic Sitting 88 mmHg Body Temperature 97.7 F O2 % BldC Oximetry 97 % BMI (Body Mass Index) 32.9 kg/m2 Results Test Acquired Facility Test Result H/L Range Note Date Laboratory test 01/28/2019 [facility] B-Type 179 pg/mL High <= [address] [address] Peptide BNP [phone] CBC Auto Diff 01/28/2019 [facility] White Blood 9.7 Normal 3.5 -10.[address] Count 10^3/[place] [address] [phone] Red Blood Count 5.32 10^6/uL High 3.70-4.87 Hemoglobin 13.8 g/dL Normal 12.0-16.0 Hematocrit 43 % Normal 35-47 Mean Corpuscular Volume 80 fL Normal 80-97 Mean Corpuscular Hemoglobin 26 pg Low 27-31 Mean Corpuscular HGB Conc 32 g/dL Normal 31-36 Red Cell Distribution Width 18 % High 10-15 Platelet Count 334 10^3/uL Normal 150-450 Mean Platelet Volume 8.0 fL Normal 7.4-10.4 Abs Neutrophils 7.0 10^3/uL Normal 1.5-7.7 Abs Lymphocytes 1.5 10^3/uL Normal 1.0-4.8 Abs Monocytes 0.9 10^3/uL High 0-0.8 Abs Eosinophils 0.2 10^3/uL Normal 0-0.6 Abs Basophils 0.1 10^3/uL Normal 0-0.2 Abs Nucleated RBC 0.0 10^3/uL Granulocyte % 72.8 % Lymphocyte % 15.2 % Monocyte % 9.6 % Eosinophil % 1.7 % Basophil % 0.7 % Nucleated Red Blood Cells % 0.1 Laboratory test 01/28/2019 [facility] Troponin-I 0.02 ng/mL < 0.04 [address] (TnI) [place], [place] [id number] [phone] Comp Metabolic 01/28/2019 [facility] Sodium 133 mmol/L Low 135 -[address] [place] [address] [phone] Potassium 4.4 mmol/L Normal 3.5-5.0 Chloride 102 mmol/L Normal 101-111 Co2 Carbon Dioxide 23 mmol/L Normal 22-32 Anion Gap 8 mmol/L Normal 2-11 Glucose 91 mg/dL Normal 70-100 Blood Urea Nitrogen 11 mg/dL Normal 6-24 Creatinine 0.83 mg/dL Normal 0.51-0.95 BUN/Creatinine Ratio 13.3 Normal 8-20 Calcium 9.4 mg/dL Normal 8.6-10.3 Total Protein 7.9 g/dL Normal 6.4-8.9 Albumin 4.0 g/dL Normal 3.2-5.2 Globulin 3.9 g/dL Normal 2-4 Albumin/Globulin Ratio 1.0 Normal 1-3 Total Bilirubin 1.40 mg/dL High 0.2-1.0 Alkaline Phosphatase 130 U/L High 34-104 Alt 13 U/L Normal 7-52 Ast 16 U/L Normal 13-39 Egfr Non- 70.6 >60 Egfr 85.4 >60 2 Laboratory test 01/28/2019 [facility] Troponin-I 0.03 <0.04 [address] (TnI) ng/mL [place], [place] [id number] [phone] CBC Auto Diff 01/09/2019 [facility] White Blood 6.5 Normal 3.5 -10.[address] Count 10^3/[place] [address] [phone] Red Blood Count 4.84 10^6/uL Normal 3.70-4.87 Hemoglobin 12.6 g/dL Normal 12.0-16.0 Hematocrit 38 % Normal 35-47 Mean Corpuscular Volume 79 fL Low 80-97 Mean Corpuscular Hemoglobin 26 pg Low 27-31 Mean Corpuscular HGB Conc 33 g/dL Normal 31-36 Red Cell Distribution Width 18 % High 10-15 Platelet Count 350 10^3/uL Normal 150-450 Mean Platelet Volume 8.7 fL Normal 7.4-10.4 Abs Neutrophils 3.5 10^3/uL Normal 1.5-7.7 Abs Lymphocytes 2.0 10^3/uL Normal 1.0-4.8 Abs Monocytes 0.6 10^3/uL Normal 0-0.8 Abs Eosinophils 0.3 10^3/uL Normal 0-0.6 Abs Basophils 0.1 10^3/uL Normal 0-0.2 Abs Nucleated RBC 0.0 10^3/uL Granulocyte % 54.2 % Lymphocyte % 30.6 % Monocyte % 9.4 % Eosinophil % 5.0 % Basophil % 0.8 % Nucleated Red Blood Cells % 0.0 Laboratory test 01/09/2019 [facility] C Reactive 5.85 mg/L Normal <8.[address] [place] [address] [phone] Liver Function 01/09/2019 [facility] Total Protein 7.1 g/dL Normal 6.4-8.[address] [place] [address] [phone] Albumin 3.9 g/dL Normal 3.2-5.2 Globulin 3.2 g/dL Normal 2-4 Albumin/Globulin Ratio 1.2 Normal 1-3 Total Bilirubin 1.20 mg/dL High 0.2-1.0 Direct Bilirubin 0.20 mg/dL High 0.03-0.18 Indirect Bilirubin 1.0 mg/dL Normal 0.3-1.0 Alkaline Phosphatase 129 U/L High 34-104 Alt 12 U/L Normal 7-52 Ast 12 U/L Low 13-39 Laboratory test 01/09/2019 [facility] GGTP 13 U/L Normal 9- 64.[address] [place] [address] [phone] Laboratory test 12/26/2018 [facility] Lactic Acid 0.9 Normal 0.5-2.0 4 finding 101 [facility] mmol/[place] [address] [phone] CBC Auto Diff 12/26/2018 [facility] White Blood 7.8 Normal 3.5 -10.[address] Count 10^3/[place] [address] [phone] Red Blood Count 4.82 10^6/uL Normal 3.70-4.87 [...] Blood Cells % 0.1 Comp Metabolic 12/26/2018 [facility] Sodium 138 mmol/L Normal 135-145 Panel [address] [place] [address] [phone] Potassium 3.7 mmol/L Normal 3.5-5.0 Chloride 106 [...] Egfr Non- 97.1 >60 Egfr 117.4 >60 5 Laboratory test 12/26/2018 [facility] Troponin-I (TnI) 0.02 ng/ mL <0.04 6 finding [address] [place] [address] [phone] Laboratory test 12/22/2018 [facility] Troponin-I (TnI) 0.03 ng/ mL <0.04 7 finding [address] [place] [address] [phone] B-Type Natriuretic Peptide BNP 248 pg/mL High <=100 Comp Metabolic 12/22/2018 [facility] Sodium 139 mmol/L Normal 135-145 Panel [address] [place] [address] [phone] Potassium 3.8 mmol/L Normal 3.5-5.0 Chloride 107 [...] Egfr Non- 106.8 >60 Egfr 129.2 >60 8 Laboratory test 12/22/2018 [facility] Partial 38.7 High 26.0- 38.[address] [place] [address] PTT [phone] D Dimer Quantitative 453 ng/mL High Less Than 230 9 Inr/Protime 12/22/2018 [facility] Inr 1.03 Normal 0.82-1.[address] [place] [address] [phone] CBC Auto Diff 12/22/2018 [facility] White Blood 7.1 Normal 3.5 -10.[address] Count 10^3/[place] [address] [phone] Red Blood Count 4.86 10^6/uL Normal 3.70-4.87 [...] % Nucleated Red Blood Cells % 0.0 CBC Auto 11/22/2018 [facility] White Blood 7.0 10^3/uL Normal 3.5-10.[address] [place] [address] [phone] Red Blood Count 4.71 10^6/uL Normal 3.70-4.87 [...] Blood Cells % 0.1 Laboratory test 11/22/2018 [facility] Hemoglobin A1c 6.5 % High 4.0-5.6 [address] (Glyco HGB) [place] [address] [phone] Comp Metabolic 11/22/2018 [facility] Sodium 139 Normal 135- [address] mmol/[place] [address] [phone] Potassium 4.2 mmol/L Normal 3.5-5.0 Chloride 105 [...] Non- 116.0 >60 Egfr 140.3 >60 12 1 Troponin-I testing on Plasma Separator Tubes (PST) has a known false positive rate of 0.20-0.40%. All positive troponins reflex immediately to secondary confirmatory testing. Using the [employer] 800 Access Immunoassay systems, the 99th percentile [...] 5 Kidney failure <15 (or dialysis) 3 Troponin-I testing on Plasma Separator Tubes (PST) has a known false positive rate of 0.20-0.40%. All positive troponins reflex immediately to secondary confirmatory testing. Using the [employer] DxI 800 Access Immunoassay systems, the 99th percentile upper reference limit was demonstrated to be < 0.03 ng/mL. 4 [facility] Severe Sepsis and Septic Shock Management Bundle Measure requires all lactic acids initially measuring >2.0 mmol/L be repeated. 5 Because ethnic data is not always readily [...] 15-29 5 Kidney failure <15 (or dialysis) 6 Troponin-I testing on Plasma Separator Tubes (PST) has a known false positive rate of 0.20-0.40%. All positive troponins reflex immediately to secondary confirmatory testing. Using the [employer] DxI 800 Access Immunoassay systems, the 99th percentile upper reference limit was demonstrated to be < 0.03 ng/mL. 7 Verbal to [id number] by [email or web address] at 1446 on 12/22/18. Results read back accurately. Corrected Report. Result TnIDx:0.39 Called to [id number] at: 13:52:23 by:[id number] Read back by: [id number] CORRECTED REPORT --- Corrected on 12/22/18 1446 --- Troponin I previously reported as: 0.39 *C ng/mL Result TnIDx:0.39 Called to [id number] at: 13:52:23 by:[id number] Read back by: [id number] Troponin-I testing on Plasma Separator Tubes (PST) has a known false positive rate of 0.20-0.40%. All positive troponins reflex immediately to secondary confirmatory testing. Using the [employer] DxI 800 Access Immunoassay systems, the 99th percentile upper reference limit was demonstrated to be < 0.03 ng/mL. 8 Because ethnic data is not always [...] 5 Kidney failure <15 (or dialysis) 9 Please note: The following may produce a false positive D Dimer test: - Rheumatoid factor greater than 60 IU/ml - Plasma hemoglobin greater than 0.05 gm/dl - Bilirubin greater than 50 mg/dl - Lipids greater than 1000 mg/dl - FDP greater than 20 ug/ml 10 Standard intensity warfarin therapeutic range: 2.0-3.0 High intensity warfarin therapeutic range: 2.5-3.5 11 Therapeutic target for the treatment of diabetes mellitus patients is <7% HBA1C, and in selective patients <6.0%. Please refer to [place] [employer] diabetic care guidelines for further information. 12 Because ethnic data is not always [...] 15-29 5 Kidney failure <15 (or dialysis) Procedures Date Code Description Status 03/17/2019 45516 ECHO Transthoracic, Real-Time 2D With Doppler And Completed Color Flow 12/30/2018 38941 EKG Tracing & Interpretation Completed 12/26/2018 22255 EKG Tracing & Interpretation Completed 12/23/2018 12149 ECHO Transthorasic Realtime 2D W Doppler & Color Flow Completed Hosp 12/23/2018 39807 Treadmill Interp/Report Only Completed 12/23/2018 49386 Stress Test Supervsn W/Out I/R Completed 12/23/2018 23828 EKG, Interpretation Only Completed 12/22/2018 72481 ECHO Transthorasic Realtime 2D W Doppler & Color Flow Completed Hosp 12/22/2018 95485 EKG, Interpretation Only Completed 12/22/2018 24860 EKG Tracing & Interpretation Completed 09/26/2018 480304479 Diabetic Retinal Eye Exam Completed 08/01/2018 29048391 Mammogram Completed 03/11/2018 07568844 Colonoscopy Completed 09/26/2017 354412282 Diabetic Retinal Eye Exam Completed 03/15/2017 493294527 Diabetic Retinal Eye Exam Completed 12/07/2016 30752621 Mammogram Completed 09/07/2016 266561683 Diabetic Retinal Eye Exam Completed 12/02/2015 08675875 Mammogram Completed 11/19/2014 25835561 Mammogram Completed 06/28/2014 591841364 Diabetic Retinal Eye Exam Completed 11/20/2013 76627487 Mammogram Completed 09/09/2013 464792029 Diabetic Retinal Eye Exam Completed 11/13/2012 99978816 Mammogram Completed 08/20/2012 078666300 Diabetic Retinal Eye Exam Completed 05/15/2012 09264311 Mammogram Completed 12/26/2011 08600703 Mammogram Completed 12/13/2011 31802083 Mammogram Completed 08/31/2010 20681369 Colonoscopy Completed 11/13/2007 89852862 Mammogram Completed 05/14/2007 67717176 Mammogram Completed 10/18/2006 87007182 Mammogram Completed 05/07/2003 42920482 Mammogram Completed Medical Devices Description No Information Available Encounters Type Date Location Provider Dx Diagnosis Office Visit 02/27/2019 3:00p [facility] Internal Medicine Anni Vie[facility] N.P. R05 [facility] Gastro-esophageal reflux disease without esophagitis Office Visit 02/06/2019 3:40p [facility] Internal Milla Calero MD J06.9 Acute [facility], unspecified Office Visit 01/30/2019 2:00p [facility] Internal Criss R05 [facility] Office Visit 12/30/2018 1:15p [facility] Danny Boyle I42.9 Cardiomyopathy, Of Marty Melchor M.D., unspecified FACC, FASNC I77.810 Thoracic aortic ectasia R94.31 Abnormal electrocardiogram [ECG] [EKG] Office Visit 12/26/2018 2:00p [facility] Internal Criss R07.9 Chest pain, Brandi Lau M.D. unspecified Ccmob I45.4 Nonspecific intraventricular block I49.9 Cardiac arrhythmia, unspecified Office Visit 12/23/2018 [facility] Elif Mary, I42.9 Cardiomyopathy, 10:46a Assocbeth TELEGRAPH SERVICE RATER unspecified Hospitalists R07.9 Chest pain, unspecified [facility] R[facility]31 Abnormal 2:00p Cardiology Of Tom Melchor, electrocardiogram [facility] FAC, FASNC [ECG] [EKG] R07.89 Other chest pain I42.9 Cardiomyopathy, unspecified Office Visit 12/22/2018 [facility] Nino I42.9 Cardiomyopathy, 10:46a Assoc,pc PRECIOUS Ding unspecified Hospitalists R07.9 Chest pain, unspecified R06.02 Shortness of breath Office Visit 12/22/2018 11:00a [facility] Internal Ingrid Macedo, R06.02 Shortness of Medicine - Suite DO breath R F17.290 Nicotine dependence, other tobacco product, uncomplicated Office Visit 12/01/2018 8:40a [facility] Internal Criss D64.9 Anemia, Brandi Lau M.D. unspecified Ccmob R74.0 Nonspec elev of levels of transamns & lactic acid dehydrgnse E11.9 Type 2 diabetes mellitus without complications Office Visit 10/07/2018 8:45a [facility] Donald Moreau32.9 Chronic Services Of Marty Alvarado M.D. sinusitis, unspecified G43.009 Migraine w/o aura, not intractable, w/o status migrainosus G50.1 Atypical facial pain Assessments Date Code Description Provider 03/17/2019 I42.9 Cardiomyopathy, unspecified Traveling ECHO 1 02/27/2019 R05 Cough Anni Vieira, N.P. 02/27/2019 K21.9 Gastro-esophageal reflux disease Anni Isha, N.P. without esophagitis 02/06/2019 J06.9 Acute upper respiratory infection, Milla Calero MD unspecified 01/30/2019 R05 Cough Criss Lau M.D. 12/30/2018 I42.9 Cardiomyopathy, unspecified Danny Melchor M.D., [facility], [facility] 12/30/2018 I77.810 Thoracic aortic ectasia Danny Melchor M.D., [facility], [facility] 12/30/2018 R94.31 Abnormal electrocardiogram [ECG] Danny Melchor M.D., [facility], [EKG] [facility] 12/26/2018 R07.9 Chest pain, unspecified Criss Lau M.D. 12/26/2018 I45.4 Nonspecific intraventricular block Criss Lau M.D. 12/26/2018 I49.9 Cardiac arrhythmia, rubyified Criss Lau M.D. 12/23/2018 R94.31 Abnormal electrocardiogram [ECG] Madhavi Chaudhary M.D. [EKG] 12/23/2018 R07.9 Chest pain, unspecified Catherine Bartlett MD, [facility], [facility] 12/23/2018 I42.9 Cardiomyopathy, unspecified Elif Mary, TELEGRAPH SERVICE [employer]ATER 12/23/2018 R07.9 Chest pain, unspecified Elif Mary, TELEGRAPH SERVICE RATER 12/22/2018 R94.31 Abnormal electrocardiogram [ECG] Madhavi Chaudhary M.D. [EKG] 12/22/2018 R94.31 Abnormal electrocardiogram [ECG] Danny Melchor M.D., [facility], [EKG] [facility] 12/22/2018 R07.89 Other chest pain Danny Melchor M.D., [facility], [facility] 12/22/2018 I42.9 Cardiomyopathy, unspecified Danny Melchor M.D., [facility], [facility] 12/22/2018 I42.9 Cardiomyopathy, unspecified PRECIOUS Mancia 12/22/2018 R06.02 Shortness of breath Ingrid Macedo, 12/22/2018 R07.9 Chest pain, unspecified PRECIOUS [place] 12/22/2018 F17.290 Nicotine dependence, other tobacco Ingrid Macedo DO product, uncomplicated 12/22/2018 R06.02 Shortness of breath PRECIOUS [place] 12/01/2018 D64.9 Anemia, unspecified Criss Lau M.D. 12/01/2018 R74.0 Nonspecific elevation of levels of Criss Lau M.D. transaminase and lactic acid dehydrogenase [LDH] 12/01/2018 E11.9 Type 2 diabetes mellitus without Criss Lau M.D. complications 10/07/2018 J32.9 Chronic sinusitis, unspecified Donald Alvarado M.D. 10/07/2018 G43.009 Migraine without aura, not Donald Alvarado M.D. intractable, without status migra 10/07/2018 G50.1 Atypical facial pain Donald Alvarado M.D. Plan of Treatment Future Appointment(s):05/28/2019 1:20 pm - Criss Lau M.D. at [facility] - Anni Vieira N.P.R05 CoughNew Medication :Azithromycin 250 mg - two tabs day one, one daily till goneMedrol 4 mg - 6 by mouth day 1, 5 by mouth day 2, 4 by mouth day 3, 3 by mouth day 4, 2 by mouth day5, 1 by mouth day 6Benzonatate 200 mg - one by mouth three times daily as needed for coughComments:For your cough and shortness of breath, I have prescribed Azithromycin and a short course of steroids. If this does not help your cough, please contact the office.K21.9 Gastro-esophageal reflux disease without esophagitisNew Medication:Famotidine 20 mg - 1 by mouth twice a dayComments:For your esophageal reflux: Continue to take the Esomeprazole. I prescribed Famotidine 20 mg. Take 1 tablet, twice daily for the next 2 months.I advise you to avoid food triggers. These include: Spicy, greasy, and acidic foods, along with coffee and alcohol. If at any point you feel your symptoms arenot well controlled, please contact the office. Functional Status Description No Information Available Mental Status Description No Information Available Referrals Refer to Reason for Referral Status Appt Date [facility] Sent [address] [place] [address] [phone]
--- OUTSIDE RECORDS SUMMARY | 2019-03-26 14:33 | XMS REPORT | Continuity of Care Document ---
:1960 External Reference #:[id number] Author Name Danny Melchor M.D., [facility] (transmitted by agent of provider Teresa Wolf) Address [address] [place] [address] Care Team Providers Name Role Phone Criss Lau MD - Internal Care Team Information Asset Accountant [phone] Medicine Luda Craig MD - Obstetrics & Care Team Information Asset Accountant Gynecology carissaDiana Beatncourt M.D. - Single Care Team Information Asset Accountant [phone] [facility] - Mental Care Team Information Asset Accountant [phone] [facility] ENT - Clinic/Center Care Team Information Asset Accountant [phone] Roland Rey MD - Care Team Information Asset Accountant [phone] Otolaryngology Brittaney Altamirano O.D. - Director Of Special Education Care Team Information Asset Accountant Problems Active Problems Provider Date Type 2 diabetes mellitus Felicity Negrete M.D., FACP Onset: 07/13/2010 Pure hypercholesterolemia Felicity Negrete M.D., FACP Onset: 07/13/2010 Benign essential hypertension Felicity Negrete M.D., FACP Onset: 07/13/2010 Migraine without aura, not refractory Cherelle Francis M.D. Onset: 2014 Cardiomyopathy Danny Melchor M.D., [facility], Onset: 12/30/2018 FASIA Social History Type Date Description Comments Sex Unknown Tobacco Use Start: Unknown Former Cigarette quit in 2013, started End: Unknown Smoker in her teens, never smoked more than 4 cigarettes in a day, usually less. Quit in 2015 (40 yr) ETOH Use Denies alcohol use Tobacco Use Start: Unknown Patient is a former End: Unknown smoker Recreational Drug Use Denies Drug Use Smoking Status Reviewed: 03/25/19 Patient is a former smoker Exercise Type/Frequency Does not exercise Allergies, Adverse Reactions, Alerts Active Allergies Reaction [...] Tablets ER Walker 4 wheels, 1units R26.81 Criss [place], 01/11/2017 [facility] brakes, seat and M.D. basket. r26.81 G62.9 Miralax 17 gm every day 510units R10.13 Criss [place], 11/17/2015 3350NF Powder mixed w/ 8 oz M.D. water/juice as needed Gabapentin Take One Capsule By 90caps E11.40 Criss [place], 02/25/2015 100mg Mouth Three Times A M.D. Capsules Day Metformin HCL ER Take One Tablet By [...] Doxycycline Hyclate 1 tab by mouth 14tabs R05 Criss Lau, 2018 - twice a day M.D. 02/06/2019 100mg Tablets for 7 days Lisinopril 1 by mouth 90tabs Criss Lau, 12/24/2018 - 2.5mg every day M.D. 01/30/2019 [...] CPT Code Status Date Vaccine Lot # [id number] Given 01/17/2018 Influenza Virus Vaccine, Quadrivalent, Split, [id number] Preservative Free 01825 Given 02/16/2016 Influ Virus Vaccine, Quadrivalent, Split Virus, [id number] [address] Given 01/21/2015 Influenza Virus Vaccine, Quadrivalent, Split, [id number] Preservative Free 67989 Given 01/24/2014 Flu Vaccine Split Virus Preservative Free For Indiv 3Yr Older 89093 Given 11/28/2011 Pneumonia Vaccine [id number] Given 03/21/2011 Afluria Vaccine [id number] 29714 Given 12/30/2009 Influenza Virus 3Yrs & Over 51235 Given 02/28/2009 Influenza Virus Vaccine, Pandemic Formulation 97899 Given 02/24/2009 Influenza Virus 3Yrs & Over 86174 Given 02/26/2008 Influenza Virus 3Yrs & Over 37494 Given 02/26/2008 Influenza Virus 3Yrs & Over 46241 Given 03/13/2007 Influenza Virus 3Yrs & Over 28809 Given 03/13/2007 Influenza Virus 3Yrs & Over 44458 Given 02/22/2006 Influenza Virus 3Yrs & Over Vital Signs Date Vital Result Comment 03/25/2019 10:09am Height 63 inches 5'3" Weight 180.19 lb with shoes BP Systolic Sitting 104 mmHg lue reg cuff BP Diastolic Sitting 64 mmHg lue reg cuff BP Systolic Standing 100 mmHg lue reg cuff BP Diastolic Standing 62 mmHg lue reg cuff Respiratory Rate 14 /min BMI (Body Mass Index) 31.9 kg/m2 Ejection Fraction 20-25% echo 03/17/19 02/27/2019 1:28pm Height 63 inches 5'3" Weight 183.12 lb Heart Rate 91 /min BP Systolic 105 mmHg BP Diastolic 63 mmHg Body Temperature 97.9 F O2 % BldC Oximetry 99 % BMI (Body Mass Index) 32.4 kg/m2 Results Test Acquired Facility Test Result H/L Range Note Date Laboratory test 01/28/2019 [facility] B-Type 179 pg/mL High <= [address] [place] [address] Peptide BNP [phone] CBC Auto Diff 01/28/2019 [facility] White Blood 9.7 Normal 3.5 -10.[address] Count 10^3/uL [place], [place] [address] [phone] Red Blood Count 5.32 10^6/uL High 3.70-4.87 [...] Blood Cells % 0.1 Laboratory test 01/28/2019 [facility] Troponin-I 0.02 ng/mL < 0.04 [address] (TnI) [place], [place] [id number] [phone] Comp Metabolic 01/28/2019 [facility] Sodium 133 mmol/L Low 135 -[address] [place] [address] [phone] Potassium 4.4 mmol/L Normal 3.5-5.0 Chloride 102 [...] Egfr 85.4 >60 2 Laboratory test 01/28/2019 [facility] Troponin-I 0.03 <0.04 [address] (TnI) ng/mL [place], [place] [id number] [phone] CBC Auto Diff 01/09/2019 [facility] White Blood 6.5 Normal 3.5 -10.[address] Count 10^3/uL [place], [place] [address] [phone] Red Blood Count 4.84 10^6/uL Normal 3.70-4.87 [...] Blood Cells % 0.0 Laboratory test 01/09/2019 [facility] C Reactive 5.85 mg/L Normal <8.[address] [place] [address] [phone] Liver Function 01/09/2019 [facility] Total Protein 7.1 g/dL Normal 6.4-8.[address] [place] [address] [phone] Albumin 3.9 g/dL Normal 3.2-5.2 Globulin 3.2 g/dL Normal 2-4 Albumin/Globulin Ratio 1.2 Normal 1-3 Total Bilirubin 1.20 mg/dL High 0.2-1.0 Direct Bilirubin 0.20 mg/dL High 0.03-0.18 Indirect Bilirubin 1.0 mg/dL Normal 0.3-1.0 Alkaline Phosphatase 129 U/L High 34-104 Alt 12 U/L Normal 7-52 Ast 12 U/L Low 13-39 Laboratory test 01/09/2019 [facility] GGTP 13 U/L Normal 9- 64.[address] [place] [address] [phone] Laboratory test 12/26/2018 [facility] Lactic Acid 0.9 Normal 0.5-2.0 [address] [place] [address] mmol/[place] [address] [phone] CBC Auto Diff 12/26/2018 [facility] White Blood 7.8 Normal 3.5 -10.[address] Count 10^3/[place] [address] [phone] Red Blood Count 4.82 10^6/uL Normal 3.70-4.87 [...] Blood Cells % 0.1 Comp Metabolic 12/26/2018 [facility] Sodium 138 mmol/L Normal 135-145 Panel [address] [place] [address] [phone] Potassium 3.7 mmol/L Normal 3.5-5.0 Chloride 106 [...] Egfr 117.4 >60 5 Laboratory test 12/26/2018 [facility] Troponin-I (TnI) 0.02 ng/ mL <0.04 6 finding [address] [place] [address] [phone] Laboratory test 12/22/2018 [facility] Troponin-I (TnI) 0.03 ng/ mL <0.04 7 finding [address] [place] [address] [phone] B-Type Natriuretic Peptide BNP 248 pg/mL High <=100 Comp Metabolic 12/22/2018 [facility] Sodium 139 mmol/L Normal 135-145 Panel [address] [place] [address] [phone] Potassium 3.8 mmol/L Normal 3.5-5.0 Chloride 107 [...] Egfr 129.2 >60 8 Laboratory test 12/22/2018 [facility] Partial 38.7 High 26.0- 38.[address] [place] [address] PTT [phone] D Dimer Quantitative 453 ng/mL High Less Than 230 9 Inr/Protime 12/22/2018 [facility] Inr 1.03 Normal 0.82-1.[address] [place] [address] [phone] CBC Auto Diff 12/22/2018 [facility] White Blood 7.1 Normal 3.5 -10.[address] Count 10^3/[place] [address] [phone] Red Blood Count 4.86 10^6/uL Normal 3.70-4.87 [...] Blood Cells % 0.0 CBC Auto 11/22/2018 [facility] White Blood 7.0 10^3/uL Normal 3.5-10.[address] [place] [address] [phone] Red Blood Count 4.71 10^6/uL Normal 3.70-4.87 [...] Blood Cells % 0.1 Laboratory test 11/22/2018 [facility] Hemoglobin A1c 6.5 % High 4.0-5.6 [address] (Glyco HGB) [place] [address] [phone] Comp Metabolic 11/22/2018 [facility] Sodium 139 Normal 135- [address] mmol/[place] [address] [phone] Potassium 4.2 mmol/L Normal 3.5-5.0 Chloride 105 [...] immediately to secondary confirmatory testing. Using the [employer] 800 Access Immunoassay systems, the 99th percentile [...] demonstrated to be < 0.03 ng/mL. 4 [facility] Severe Sepsis and Septic Shock [...] be < 0.03 ng/mL. 7 Verbal to [id number] by [id number] at 1446 on 12/22/18. Results read back accurately. Corrected Report. Result TnIDx:0.39 Called to [id number] at: 13:52:23 by:[id number] Read back by: [id number] CORRECTED REPORT --- Corrected on 12/22/18 1446 --- Troponin I previously reported as: 0.39 *C ng/mL Result TnIDx:0.39 Called to [id number] at: 13:52:23 by:[id number] Read back by: [id number] Troponin-I testing on Plasma Separator Tubes (PST) has a known false positive rate of 0.20-0.40%. All positive troponins reflex immediately to secondary confirmatory testing. Using the [employer] DxI 800 Access Immunoassay systems, the 99th [...] in selective patients <6.0%. Please refer to [place] [employer] diabetic care guidelines for further [...] dialysis) Procedures Date Code Description Status 03/17/2019 28754 ECHO Transthoracic, Real-Time 2D With Doppler And Completed Color Flow 03/17/2019 72935 ECHO Transthoracic, Real-Time 2D With Doppler And Completed Color Flow 12/30/2018 91530 EKG Tracing & Interpretation Completed 12/26/2018 76707 EKG Tracing & Interpretation Completed 12/23/2018 72507 ECHO Transthorasic Realtime 2D W Doppler & Color Flow Completed Hosp 12/23/2018 70914 Treadmill Interp/Report Only Completed 12/23/2018 37134 Stress Test Supervsn W/Out I/R Completed 12/23/2018 10471 EKG, Interpretation Only Completed 12/22/2018 54182 ECHO Transthorasic Realtime 2D W Doppler & Color Flow Completed Hosp 12/22/2018 18670 EKG, Interpretation Only Completed 12/22/2018 05197 EKG Tracing & Interpretation Completed 09/26/2018 118860458 Diabetic Retinal Eye Exam Completed 08/01/2018 59482227 Mammogram Completed 03/11/2018 07185399 Colonoscopy Completed 09/26/2017 053593867 Diabetic Retinal Eye Exam Completed 03/15/2017 906873246 Diabetic Retinal Eye Exam Completed 12/07/2016 28888275 Mammogram Completed 09/07/2016 885598608 Diabetic Retinal Eye Exam Completed 12/02/2015 47394893 Mammogram Completed 11/19/2014 47837862 Mammogram Completed 06/28/2014 328499829 Diabetic Retinal Eye Exam Completed 11/20/2013 14145321 Mammogram Completed 09/09/2013 839779434 Diabetic Retinal Eye Exam Completed 11/13/2012 57739750 Mammogram Completed 08/20/2012 237807584 Diabetic Retinal Eye Exam Completed 05/15/2012 69535710 Mammogram Completed 12/26/2011 79580935 Mammogram Completed 12/13/2011 78081202 Mammogram Completed 08/31/2010 19157140 Colonoscopy Completed 11/13/2007 92442240 Mammogram Completed 05/14/2007 01465779 Mammogram Completed 10/18/2006 68592959 Mammogram Completed 05/07/2003 25557436 Mammogram Completed Medical Devices Description No Information Available Encounters Type Date Location Provider Dx Diagnosis Office Visit 03/25/2019 [facility] Danny Boyle I42.9 Cardiomyopathy, 10:15a Of Marty Melchor M.D., unspecified FACC, FASNC Office Visit 02/27/2019 [facility] Internal Anni Vieira, R05 Cough 3:00p Medicine - Ccmob N.P. K21.9 Gastro-esophageal reflux disease without esophagitis Office Visit 02/06/2019 3:40p [facility] Internal Milla Calero MD J06.9 [facility], [facility] 01/30/2019 2:00p [facility] Internal Criss R05 Cough Medicine - Cheryl Lau M.D. Office Visit 12/30/2018 1:15p [facility] Danny Boyle I42.9 Cardiomyopathy, Of Marty Melchor M.D., unspecified FACC, FASNC I77.810 Thoracic aortic ectasia R94.31 Abnormal electrocardiogram [ECG] [EKG] Office Visit 12/26/2018 2:00p [facility] Internal Criss R07.9 Chest pain, Brandi - Tom Lau unspecified Ccmob I45.4 Nonspecific intraventricular block I49.9 Cardiac arrhythmia, unspecified Office Visit 12/23/2018 [facility] Elif Mary, I42.9 Cardiomyopathy, 10:46a beth Webber TELEPHONIC CASE MANAGER unspecified Hospitalists R07.9 Chest pain, unspecified Office Visit 12/22/2018 [place] Danny Boyle R94.31 Abnormal 2:00p Cardiology Of Tom Melchor, electrocardiogram [facility] FACC, FASNC [ECG] [EKG] R07.89 Other chest pain I42.9 Cardiomyopathy, unspecified Office Visit 12/22/2018 [facility] Nino I42.9 Cardiomyopathy, 10:46a Assoc,PRECIOUS [place] unspecified Hospitalists R07.9 Chest pain, unspecified R06.02 Shortness of breath Office Visit 12/22/2018 11:00a [facility] Internal Ingrid Macedo, R06.02 Shortness of Medicine - Suite DO breath R F17.290 Nicotine dependence, other tobacco product, uncomplicated Office Visit 12/01/2018 8:40a [facility] Internal Criss D64.9 Anemia, Brandi Lau M.D. unspecified Ccmob R74.0 Nonspec elev of levels of transamns & lactic acid dehydrgnse E11.9 Type 2 diabetes mellitus without complications Office Visit 10/07/2018 8:45a [facility] Donald S. J32.9 [facility] Domonique Alvarado. sinusitis, unspecified G43.009 Migraine w/o aura, not intractable, w/o status migrainosus G50.1 Atypical facial pain Assessments Date Code Description Provider 03/25/2019 I42.9 Cardiomyopathy, unspecified Danny Melchor M.D., [facility] 03/17/2019 I42.9 Cardiomyopathy, unspecified Danny Melchor M.D., [facility] 03/17/2019 I42.9 Cardiomyopathy, unspecified Traveling ECHO 1 02/27/2019 R05 Cough Anni Vieira, N.P. 02/27/2019 K21.9 Gastro-esophageal reflux disease Anni Varprecious, N.P. without esophagitis 02/06/2019 J06.9 Acute upper respiratory infection, Milla Calero MD unspecified 01/30/2019 R05 Cough Criss Lau M.D. 12/30/2018 I42.9 Cardiomyopathy, unspecified Danny Melchor M.D., [facility] 12/30/2018 I77.810 Thoracic aortic ectasia Danny Melchor M.D., [facility] 12/30/2018 R94.31 Abnormal electrocardiogram [ECG] Danny Melchor M.D., [facility], [EKG] [facility] 12/26/2018 R07.9 Chest pain, unspecified Criss Lau M.D. 12/26/2018 I45.4 Nonspecific intraventricular block Criss Lau M.D. 12/26/2018 I49.9 Cardiac arrhythmia, unspecified Criss Lau M.D. 12/23/2018 R94.31 Abnormal electrocardiogram [ECG] Madhavi Chaudhary M.D. [EKG] 12/23/2018 R07.9 Chest pain, unspecified Catherine Bartlett MD, [facility], [facility] 12/23/2018 I42.9 Cardiomyopathy, unspecified Elif Mary, TELEPHONIC CASE MANAGER 12/23/2018 R07.9 Chest pain, unspecified Elif Mary, TELEPHONIC CASE MANAGER 12/22/2018 R94.31 Abnormal electrocardiogram [ECG] Madhavi Chaudhary M.D. [EKG] 12/22/2018 R94.31 Abnormal electrocardiogram [ECG] Danny Melchor M.D., [facility], [EKG] [facility] 12/22/2018 R07.89 Other chest pain Danny Melchor M.D., [facility] 12/22/2018 I42.9 Cardiomyopathy, unspecified Danny Melchor M.D., [facility] 12/22/2018 I42.9 Cardiomyopathy, unspecified Nino Ding, PA 12/22/2018 R06.02 Shortness of breath Ingrid Macedo, DO 12/22/2018 R07.9 Chest pain, unspecified Nino Ding, PRECIOUS 12/22/2018 F17.290 Nicotine dependence, other tobacco Ingrid Macedo, DO product, uncomplicated 12/22/2018 R06.02 Shortness of breath Nino Dign, PA 12/01/2018 D64.9 Anemia, unspecified Criss Lau M.D. [...] Donald Alvarado M.D. Plan of Treatment Future Appointment(s):04/07/2019 11:30 am - Steven Ordoñez M.D. at [place] [facility]05/28/2019 1:20 pm - Criss Lau M.D. at [facility] Internal Medicine - [facility]03/25/2019 - Danny Melchor M.D., [facility], AFWFSF27.9 Cardiomyopathy, unspecifiedComments:As discussed, we will refer you to Dr. Ordoñez for defibrillator placement consideration.Referral:Steven Ordoñez MD, Cardiovsclr DiseaseFollow up:refer to Dr. Ordoñez for consultation for ICD placement evaluation. Functional Status Description No Information Available Mental Status Description No Information Available Referrals Refer to Reason for Referral Status Appt Date Steven Ordoñez MD Dear Dr. Ordoñez, pt has persistent severe Created non-ischemic CMP. Please evaluate Ms. Clifton for ICD for primary prophylaxis for SCD. [address] [place] [address] [phone] [facility] [address] [place] [address] [phone]
--- OUTSIDE RECORDS SUMMARY | 2019-03-26 14:34 | XMS REPORT | Continuity of Care Document ---
:1960 External Reference #:[id number] Author Name Milla Calero MD (transmitted by agent of provider Divya Artis) Address [address], [place] [address] Care Team Providers Name Role Phone Criss Lau MD - Internal Care Team Information Chemistry Laboratory Technician Medicine Luda Craig MD - Obstetrics & Care Team Information Chemistry Laboratory Technician [phone] Gynecology carissa-Diana Betancourt M.D. - Single Care Team Information Chemistry Laboratory Technician [facility] - Mental Care Team Information Chemistry Laboratory Technician [phone] [facility] ENT - Clinic/Center Care Team Information Chemistry Laboratory Technician [phone] Roland Rey MD - Care Team Information Chemistry Laboratory Technician [phone] Otolaryngology Brittaney Altamirano O.D. - Senior Windows Systems Engineer Care Team Information Chemistry Laboratory Technician Problems Active Problems Provider Date Type 2 diabetes mellitus Felicity Negrete M.D., FACP Onset: 07/13/2010 Pure hypercholesterolemia Felicity Negrete M.D., FACP Onset: 07/13/2010 Benign essential hypertension Felicity Negrete M.D., FACP Onset: 07/13/2010 Migraine without aura, not refractory Cherelle Francis M.D. Onset: 2014 Cardiomyopathy Danny Melchor M.D., [facility], Onset: 12/30/2018 FASNC Social History Type Date Description Comments Sex Unknown Tobacco Use Start: Unknown End: Former Cigarette Smoker quit in 2013, started Unknown in her teens, never smoked more than 4 cigarettes in a day, usually less. Quit in 2014 (40 yr) ETOH Use Denies alcohol use Tobacco Use Start: Unknown End: Patient is a former Unknown smoker Smoking Status Reviewed: 02/06/19 Patient is a former smoker Exercise Does not exercise Type/Frequency Allergies, Adverse Reactions, Alerts Active Allergies Reaction Severity Comments Date Penicillin swelling 11/02/2009 Bee Sting 11/02/2009 Losartan cough 07/25/2015 Lisinopril cough 07/25/2015 Medications Active Medications SIG Qnty Indications Ordering Provider Date Epipen 2-Clifford use as directed 2units Criss Lau, 01/30/2019 M.D. 0.3mg/0.3ML Solution Auto-Inject Aldactone take one half 90tabs I42.9 Danny Montana Melchor, 12/30/2018 25mg Tablets tablet (12.5 mg) M.D., FACC, FASNC per day Atorvastatin Calcium 1 by mouth every E78.5 Criss Sid, 12/24/2018 day M.D. 40mg Tablets Carvedilol 1 [...] Erickson For daily use Dx 1units R26.81 Criss Lau, 08/27/2017 r 26.81 M.D. [facility] B-12 Every Day Unknown 04/05/2017 500mcg Tablets Latanoprost Every Evening Brittaney Altamirano, 03/29/2017 0.005% O.D. Solution Vitamin B12 1 by mouth every 30tabs R26.81 Criss Lau, 02/11/2017 1000mcg day M.D. Tablets ER Walker 4 wheels, 1un R26.81 Criss Lau, 01/11/2017 [facility] brakes, seat and M.D. basket. r26.81 G62.9 Miralax 17 gm every day 510units R10.13 [facility], 11/17/2015 3350NF Powder mixed w/ 8 oz M.D. water/juice as needed Gabapentin Take One Capsule By 90caps E11.40 [facility], 02/25/2015 100mg Mouth Twice A Day M.D. Capsules Aspirin 1 by mouth once 90tabs [facility], 12/16/2014 81mg Tablets daily M.D. Metformin HCL ER Take One Tablet By 90tabs [facility], 08/30/2011 Mouth Every Day M.D. 500mg Tablets ER 24HR History Medications Doxycycline Hyclate 1 tab by mouth 14tabs R05 [facility], 2018 - twice a day for M.D. 02/06/2019 100mg Tablets 7 days Lisinopril 1 by mouth 90tabs [facility], 12/24/2018 - 2.5mg every day M.D. 01/30/2019 Tablets Albuterol Sulfate inhale 2 puffs 8.500gm R06.02 Ingrid Macedo, 2018 - HFA by mouth every DO 12/22/2018 108(90Base) 4 to 6 hours if mcg/Act Aerosol needed Epinephrine Once Unknown 12/22/2018 - 01/30/2019 0.3mg/0.3ML Solution Auto-Inject Metformin HCL ER Every Day Unknown 12/22/2018 - 01/30/2019 500mg Tablets ER 24HR Medications Administered in Office Medication SIG Qnty Indications Ordering Provider Date Depomedrol 40MG Roberta Blackwood M.D. 03/20/2017 Injection Depomedrol 40MG Roberta Blackwood M.D. 05/21/2016 Injection Depomedrol 80MG Roberta Blackwood M.D. 07/29/2014 Injection Immunizations CPT Code Status Date Vaccine Lot # [id number] Given 01/17/2018 Influenza Virus Vaccine, Quadrivalent, Split, [id number] Preservative Free 05102 Given 02/16/2016 Influ Virus Vaccine, Quadrivalent, Split Virus, [id number] [address] Given 01/21/2015 Influenza Virus Vaccine, Quadrivalent, Split, [id number] Preservative Free 88004 Given 01/24/2014 Flu Vaccine Split Virus Preservative Free For Indiv 3Yr Older 92001 Given 11/28/2011 Pneumonia Vaccine [id number] Given 03/21/2011 Afluria Vaccine [id number] 63054 Given 12/30/2009 Influenza Virus 3Yrs & Over 51029 Given 02/28/2009 Influenza Virus Vaccine, Pandemic Formulation 97326 Given 02/24/2009 Influenza Virus 3Yrs & Over 11808 Given 02/26/2008 Influenza Virus 3Yrs & Over 37449 Given 02/26/2008 Influenza Virus 3Yrs & Over 59802 Given 03/13/2007 Influenza Virus 3Yrs & Over 95598 Given 03/13/2007 Influenza Virus 3Yrs & Over 30857 Given 02/22/2006 Influenza Virus 3Yrs & Over Vital Signs Date Vital Result Comment 02/06/2019 3:35pm Height 63 inches 5'3" Weight 186.00 lb Heart Rate 86 /min BP Systolic Sitting 142 mmHg BP Diastolic Sitting 88 mmHg Body Temperature 97.7 F O2 % BldC Oximetry 97 % BMI (Body Mass Index) 32.9 kg/m2 01/30/2019 1:58pm Height 63 inches 5'3" Weight 184.00 lb Heart Rate 73 /min BP Systolic 134 mmHg BP Diastolic 82 mmHg Body Temperature 99.1 F O2 % BldC Oximetry 99 % BMI (Body Mass Index) 32.6 kg/m2 Results Test Date Facility Test Result H/L Range Note Laboratory test 01/28/2019 [facility] Troponin-I 0.03 ng/mL < 0.[address] (TnI) [place] [address] [phone] Comp Metabolic 01/28/2019 [facility] Sodium 133 mmol/L Low 135 -[address] [place] [address] [phone] Potassium 4.4 mmol/L Normal 3.5-5.0 Chloride 102 [...] Egfr 85.4 >60 2 Laboratory test 01/28/2019 [facility] Troponin-I 0.02 <0.04 [address] (TnI) ng/mL [place], [place] [id number] [phone] CBC Auto Diff 01/28/2019 [facility] White Blood 9.7 Normal 3.5 -10.[address] Count 10^3/uL [place], [place] [address] [phone] Red Blood Count 5.32 10^6/uL High 3.70-4.87 [...] Blood Cells % 0.1 Laboratory test 01/28/2019 [facility] B-Type 179 pg/mL High <= [address] [place] [address] Peptide BNP [phone] Laboratory test 01/09/2019 [facility] GGTP 13 U/L Normal 9- 64.[address] [place], [place] [id number] [phone] Liver Function 01/09/2019 [facility] Total Protein 7.1 g/dL Normal 6.4-8.[address] [place] [address] [phone] Albumin 3.9 g/dL Normal 3.2-5.2 Globulin 3.2 g/dL Normal 2-4 Albumin/Globulin Ratio 1.2 Normal 1-3 Total Bilirubin 1.20 mg/dL High 0.2-1.0 Direct Bilirubin 0.20 mg/dL High 0.03-0.18 Indirect Bilirubin 1.0 mg/dL Normal 0.3-1.0 Alkaline Phosphatase 129 U/L High 34-104 Alt 12 U/L Normal 7-52 Ast 12 U/L Low 13-39 Laboratory test 01/09/2019 [facility] C Reactive 5.85 mg/L Normal <8.[address] [place] [address] [phone] CBC Auto Diff 01/09/2019 [facility] White Blood 6.5 Normal 3.5 -10.[address] Count 10^3/[place] [address] [phone] Red Blood Count 4.84 10^6/uL Normal 3.70-4.87 [...] Red Blood Cells % 0.0 Laboratory test 12/26/2018 [facility] Lactic Acid 0.9 mmol/L Normal 0.5-2.[address] [place] [address] [phone] CBC Auto Diff 12/26/2018 [facility] White Blood 7.8 10^3/uL Normal 3.5-10.[address] [place] [address] [phone] Red Blood Count 4.82 10^6/uL Normal 3.70-4.87 [...] Blood Cells % 0.1 Comp Metabolic 12/26/2018 [facility] Sodium 138 mmol/L Normal 135-[address] [place] [address] [phone] Potassium 3.7 mmol/L Normal 3.5-5.0 Chloride 106 [...] Egfr 117.4 >60 5 Laboratory test 12/26/2018 [facility] Troponin-I (TnI) 0.02 ng/ mL <0.04 6 [address] [place] [address] [phone] Laboratory test 12/22/2018 [facility] Troponin-I (TnI) 0.03 ng/ mL <0.04 7 finding [address] [place] [address] [phone] B-Type Natriuretic Peptide BNP 248 pg/mL High <=100 Comp Metabolic 12/22/2018 [facility] Sodium 139 mmol/L Normal 135-145 Panel [address] [place] [address] [phone] Potassium 3.8 mmol/L Normal 3.5-5.0 Chloride 107 [...] Egfr 129.2 >60 8 Laboratory test 12/22/2018 [facility] Partial 38.7 High 26.0- 38.[address] [place] [address] PTT [phone] D Dimer Quantitative 453 ng/mL High Less Than 230 9 Inr/Protime 12/22/2018 [facility] Inr 1.03 Normal 0.82-1.[address] [place] [address] [phone] CBC Auto Diff 12/22/2018 [facility] White Blood 7.1 Normal 3.5 -10.[address] Count 10^3/[place] [address] [phone] Red Blood Count 4.86 10^6/uL Normal 3.70-4.87 [...] Blood Cells % 0.0 CBC Auto 11/22/2018 [facility] White Blood 7.0 10^3/uL Normal 3.5-10.[address] [place] [address] [phone] Red Blood Count 4.71 10^6/uL Normal 3.70-4.87 [...] Blood Cells % 0.1 Laboratory test 11/22/2018 [facility] Hemoglobin A1c 6.5 % High 4.0-5.6 [address] (Glyco HGB) [place] [address] [phone] Comp Metabolic 11/22/2018 [facility] Sodium 139 Normal 135- [address] mmol/[place] [address] [phone] Potassium 4.2 mmol/L Normal 3.5-5.0 Chloride 105 [...] Non- 116.0 >60 Egfr 140.3 >60 12 CBC Auto 08/22/2018 [facility] White Blood 6.1 10^3/uL Normal 3.5-10.[address] [place] [address] [phone] Red Blood Count 5.33 10^6/uL High 3.70-4.87 [...] % 0.1 Iron & Iron Binding 08/22/2018 [facility] Iron 88 g/dL Normal 50-[address] [place], [place] [address] [phone] Unsaturated Iron Binding < 404 g/dL Total Iron Binding Capacity 419 g/dL Normal 250-450 Transferrin 299 mg/dL Normal 203-362 % Iron Saturation 21 % Normal 15-55 Laboratory test 08/22/2018 [facility] B-Type 50 pg/mL <=[address] [place] [address] Peptide BNP [phone] Liver Function 08/22/2018 [facility] Total Protein 7.5 g/dL Normal 6.4-8.[address] [place] [address] [phone] Albumin 4.0 g/dL Normal 3.2-5.2 Globulin 3.5 g/dL Normal 2-4 Albumin/Globulin Ratio 1.1 Normal 1-3 Total Bilirubin 1.30 mg/dL High 0.2-1.0 Direct Bilirubin 0.20 mg/dL High 0.03-0.18 Indirect Bilirubin 1.1 mg/dL High 0.3-1.0 Alkaline Phosphatase 122 U/L High 34-104 Alt 14 U/L Normal 7-52 Ast 13 U/L Normal 13-39 Laboratory test 08/22/2018 [facility] Pathologist Review (SEE NOTE) 13 finding [address] [place] [address] [phone] 1 Troponin-I testing on Plasma Separator Tubes (PST) has a known false positive rate of 0.20-0.40%. All positive troponins reflex immediately to secondary confirmatory testing. Using the [employer] DxI 800 Access Immunoassay systems, the 99th [...] immediately to secondary confirmatory testing. Using the [employer] DxI 800 Access Immunoassay systems, the 99th percentile upper reference limit was demonstrated to be < 0.03 ng/mL. 4 [place] Severe Sepsis and Septic Shock Management Bundle [...] immediately to secondary confirmatory testing. Using the [employer] DxI 800 Access Immunoassay systems, the 99th percentile upper reference limit was demonstrated to be < 0.03 ng/mL. 7 Verbal to [id number] by [id number] at 1446 on 12/22/18. Results read back accurately. Corrected Report. Result TnIDx:0.39 Called to [id number] at: 13:52:23 by:[email or web address] Read back by: [email or web address] CORRECTED REPORT --- Corrected on 12/22/18 1446 --- Troponin I previously reported as: 0.39 *C ng/mL Result TnIDx:0.39 Called to [id number] at: 13:52:23 by:[id number] Read back by: [email or web address] Troponin-I testing on Plasma Separator Tubes (PST) [...] in selective patients <6.0%. Please refer to [place] [employer] diabetic care guidelines for further [...] 5 Kidney failure <15 (or dialysis) 13 Mild microcytosis with limited RBC an elevated RDW. Differential diagnosis includes partially replete iron deficiency or less likely compensated hemoglobinopathy. Additional studies as clinically warranted. Reviewed by Dr. Villanueva Procedures Date Code Description Status 12/30/2018 43287 EKG Tracing & Interpretation Completed 12/26/2018 41539 EKG Tracing & Interpretation Completed 12/23/2018 69907 EKG, Interpretation Only Completed 12/23/2018 07232 ECHO Transthorasic Realtime 2D W Doppler & Color Flow Completed Hosp 12/23/2018 29961 Treadmill Interp/Report Only Completed 12/23/2018 69494 Stress Test Supervsn W/Out I/R Completed 12/22/2018 93945 EKG, Interpretation Only Completed 12/22/2018 32077 ECHO Transthorasic Realtime 2D W Doppler & Color Flow Completed Hosp 12/22/2018 59112 EKG Tracing & Interpretation Completed 09/26/2018 145077661 Diabetic Retinal Eye Exam Completed 08/01/2018 71423778 Mammogram Completed 03/11/2018 63736984 Colonoscopy Completed 09/26/2017 929463566 Diabetic Retinal Eye Exam Completed 03/15/2017 240823579 Diabetic Retinal Eye Exam Completed 12/07/2016 31322077 Mammogram Completed 09/07/2016 291677401 Diabetic Retinal Eye Exam Completed 12/02/2015 22752958 Mammogram Completed 11/19/2014 25450916 Mammogram Completed 06/28/2014 176552710 Diabetic Retinal Eye Exam Completed 11/20/2013 03823490 Mammogram Completed 09/09/2013 551265791 Diabetic Retinal Eye Exam Completed 11/13/2012 38633609 Mammogram Completed 08/20/2012 840482358 Diabetic Retinal Eye Exam Completed 05/15/2012 42439451 Mammogram Completed 12/26/2011 16926848 Mammogram Completed 12/13/2011 85529612 Mammogram Completed 08/31/2010 26666901 Colonoscopy Completed 11/13/2007 42857009 Mammogram Completed 05/14/2007 66180761 Mammogram Completed 10/18/2006 30239520 Mammogram Completed 05/07/2003 73232520 Mammogram Completed Medical Devices Description No Information Available Encounters Type Date Location Provider Dx Diagnosis Office Visit 01/30/2019 [employer] Internal Criss Cotton, R05 Cough 2:00p Brandi Luna M.D. Office Visit 12/30/2018 [facility] Danny Montana Melchor, I42.9 Cardiomyopathy, 1:15p Of Marty Santos, OLY, AMY unspecified I77.810 Thoracic aortic ectasia R94.31 Abnormal electrocardiogram [ECG] [EKG] Office Visit 12/26/2018 2:00p [facility] Internal Criss R07.9 Chest pain, Brandi Lau M.D. unspecified Ccmob I45.4 Nonspecific intraventricular block I49.9 Cardiac arrhythmia, unspecified Office Visit 12/23/2018 [facility] Elif Mary, I42.9 Cardiomyopathy, 10:46a Assoc,beth [employer]IVATE WEALTH ADVISOR unspecified Hospitalists R07.9 Chest pain, unspecified Office Visit 12/22/2018 [facility] Danny Boyle R94.31 Abnormal 2:00p Cardiology Of Tom Melchor, electrocardiogram [facility], FASIESHA [ECG] [EKG] R07.89 Other chest pain I42.9 Cardiomyopathy, unspecified Office Visit 12/22/2018 [facility] Nino I42.9 Cardiomyopathy, 10:46a Assoc,PRECIOUS [place] unspecified Hospitalists R07.9 Chest pain, unspecified R06.02 Shortness of breath Office Visit 12/22/2018 11:00a [facility] Internal Ingrid Macedo, R06.02 Shortness of Medicine - Suite DO breath R F17.290 Nicotine dependence, other tobacco product, uncomplicated Office Visit 12/01/2018 8:40a [facility] Internal Criss D64.9 AnemiaBrandi M.D. unspecified Ccmob R74.0 Nonspec elev of levels of transamns & lactic acid dehydrgnse E11.9 Type 2 diabetes mellitus without complications Office Visit 10/07/2018 8:45a [facility] Donald Palmer J32.9 Chronic Services Of Marty Alvarado M.D. sinusitis, unspecified G43.009 Migraine w/o aura, not intractable, w/o status migrainosus G50.1 Atypical facial pain Office Visit 08/29/2018 8:40a [facility] Internal Criss D64.9 Brandi Diaz M.D. unspecified Ccmob E11.9 Type 2 diabetes mellitus without complications R74.0 Nonspec elev of levels of transamns & lactic acid dehydrgnse Office Visit 08/25/2018 3:00p Ricki Ahn, G43.009 Migraine w/o aura, Neurologic [employer]IVATE WEALTH ADVISOR not intractable, Services Of [facility] w/o status migrainosus Assessments Date Code Description Provider 02/06/2019 J06.9 Acute upper respiratory infection, Milla Calero MD unspecified 01/30/2019 R05 Cough Criss Lau M.D. 12/30/2018 I42.9 Cardiomyopathy, unspecified Danny Melchor M.D., [facility], [facility] 12/30/2018 I77.810 Thoracic aortic ectasia Danny Melchor M.D., [facility], [facility] 12/30/2018 R94.31 Abnormal electrocardiogram [ECG] Danny Melchor M.D., [facility], [EKG] [facility] 12/26/2018 R07.9 Chest pain, unspecified Criss Lau M.D. 12/26/2018 I45.4 Nonspecific intraventricular block Criss Lau M.D. 12/26/2018 I49.9 Cardiac arrhythmia, unspecified Criss Lau M.D. 12/23/2018 R07.9 Chest pain, unspecified Catherine Bartlett MD, [facility], [facility] 12/23/2018 I42.9 Cardiomyopathy, unspecified Elif Mary, [employer] WE[employer] ADVISOR 12/23/2018 R07.9 Chest pain, unspecified Elif Mary, [employer]IVATE WEALTH ADVISOR 12/22/2018 R94.31 Abnormal electrocardiogram [ECG] Danny Melchor M.D., [facility], [EKG] [facility] 12/22/2018 R07.89 Other chest pain Danny Melchor M.D., [facility], [facility] 12/22/2018 I42.9 Cardiomyopathy, unspecified Danny Melchor M.D., [facility], [facility] 12/22/2018 I42.9 Cardiomyopathy, unspecified PRECIOUS [place] 12/22/2018 R06.02 Shortness of breath Ingrid Macedo DO 12/22/2018 R07.9 Chest pain, unspecified PRECIOUS [place] [...] 08/25/2018 G43.009 Migraine without aura, not Jose Ahn, LORRIE intractable, without status migra Plan of Treatment Future Appointment(s):03/25/2019 10:15 am - Danny Melchor M.D., FACC, FASNC at [facility]03/17/2019 10:00 am - Traveling ECHO 1 at [facility]05/28/2019 1:20 pm - Criss Lau M.D. at [facility] Internal Medicine - Ccmob02/06/2019 - Milla Calero MDJ06.9 Acute upper respiratory infection, unspecified Functional Status Description No Information Available Mental Status Description No Information Available Referrals Refer to Reason for Referral Status Appt Date [facility] Sent [address] [place] [address] [phone]
--- OUTSIDE RECORDS SUMMARY | 2019-03-26 14:34 | XMS REPORT | Continuity of Care Document ---
:1960 External Reference #:[id number] Author Name Criss Lau M.D. (transmitted by agent of provider Gladys Don) Address [address] [facility] [address] [facility], [place] [address] Care Team Providers Name Role Phone Criss Lua MD - Internal Care Team Information Tmd Teacher Assistant [phone] Medicine Luda Craig MD - Obstetrics & Care Team Information Tmd Teacher Assistant Gynecology carissa-Diana Betancourt M.D. - Single Care Team Information Tmd Teacher Assistant [phone] [facility] - Mental Care Team Information Tmd Teacher Assistant [phone] [facility] ENT - Clinic/Center Care Team Information Tmd Teacher Assistant [phone] Roland Rey MD - Care Team Information Tmd Teacher Assistant [phone] Otolaryngology Brittaney Altamirano O.D. - City Administrator Care Team Information Tmd Teacher Assistant Problems Active Problems Provider Date Type 2 diabetes mellitus Felicity Negrete M.D., FACP Onset: 07/13/2010 Pure hypercholesterolemia Felicity Negrete M.D., FACP Onset: 07/13/2010 Benign essential hypertension Felicity Negrete M.D., FACP Onset: 07/13/2010 Migraine without aura, not refractory Cherelle Francis M.D. Onset: 2014 Cardiomyopathy Danny Melchor M.D., [facility], Onset: 12/30/2018 FASNC Social History Type Date Description Comments Sex Unknown Tobacco Use Start: Unknown End: Former Cigarette Smoker quit in 2013, started Unknown in her teens, never smoked more than 4 cigarettes in a day, usually less. Quit in 2015 (40 yr) ETOH Use Denies alcohol use Tobacco Use Start: Unknown End: Patient is a former Unknown smoker Smoking Status Reviewed: 01/30/19 Patient is a former smoker Exercise Does not exercise Type/Frequency Allergies, Adverse Reactions, Alerts Active Allergies Reaction Severity Comments Date Penicillin swelling 11/02/2009 Bee Sting 11/02/2009 Losartan cough 07/25/2015 Lisinopril cough 07/25/2015 Medications Active Medications SIG Qnty Indications Ordering Provider Date Epipen 2-Clifford use as directed 2units Criss Lau, 01/30/2019 M.D. 0.3mg/0.3ML Solution Auto-Inject Doxycycline Hyclate 1 tab by mouth 14tabs R05 [facility], 01/30/2019 twice a day for M.D. 100mg Tablets 7 days Aldactone take one half 90tabs I42.9 Danny Montana Melchor, 12/30/2018 25mg Tablets tablet (12.5 mg) M.D., FACC, FASIESHA per day Atorvastatin Calcium 1 by mouth every E78.5 [facility], 12/24/2018 day M.D. 40mg Tablets Carvedilol 1 by mouth twice 180tabs Criss Sid, 12/24/2018 6.25mg a day M.D. Tablets Aspirin Ec Low Dose Every Day Unknown 12/22/2018 81mg Tablets Citalopram Every Day Unknown 12/22/2018 Hydrobromide 20mg Tablets Ferrous Gluconate take 1 tablet by 30tabs D50.9 [facility], 2018 mouth once daily M.D. 324(38Fe) mg Tablets i Esomeprazole Take One Capsule 90caps [facility], 06/04/2018 Magnesium By Mouth Every M.D. 40mg Capsules Day DR Lobo Chair For daily use Dx 1units R26.81 Criss Lau, 08/27/2017 r 26.81 M.D. [facility] B-12 Every Day Unknown 04/05/2017 500mcg Tablets Latanoprost Every Evening Brittaney Altamirano, 03/29/2017 0.005% O.D. Solution Vitamin B12 1 by mouth every 30tabs R26.81 Criss Lau, 02/11/2017 1000mcg day M.D. Tablets ER Walker 4 wheels, 1units R26.81 [facility], 01/11/2017 [facility] brakes, seat and M.D. basket. r26.81 G62.9 Miralax 17 gm every day 510units R10.13 [facility], 11/17/2015 3350NF Powder mixed w/ 8 oz M.D. water/juice as needed Gabapentin Take One Capsule By 90caps E11.40 [facility], 02/25/2015 100mg Mouth Twice A Day M.D. Capsules Aspirin 1 by mouth once 90tabs [facility], 12/16/2014 [address] daily M[address]D. [address] Metformin HCL ER Take One Tablet By 90tabs [facility], 08/30/2011 Mouth Every Day M.D. 500mg Tablets ER 24HR History Medications Lisinopril 1 by mouth 90tabs [facility], 12/24/2018 - 2.5mg every day M.D. 01/30/2019 [...] CPT Code Status Date Vaccine Lot # [id number] Given 01/17/2018 Influenza Virus Vaccine, Quadrivalent, Split, [id number] Preservative Free 88302 Given 02/16/2016 Influ Virus Vaccine, Quadrivalent, Split Virus, [id number] [address] Given 01/21/2015 Influenza Virus Vaccine, Quadrivalent, Split, [id number] Preservative Free 63274 Given 01/24/2014 Flu Vaccine Split Virus Preservative Free For Indiv 3Yr Older 95570 Given 11/28/2011 Pneumonia Vaccine [id number] Given 03/21/2011 Afluria Vaccine [id number] 37903 Given 12/30/2009 Influenza Virus 3Yrs & Over 14688 Given 02/28/2009 Influenza Virus Vaccine, Pandemic Formulation 76519 Given 02/24/2009 Influenza Virus 3Yrs & Over 44438 Given 02/26/2008 Influenza Virus 3Yrs & Over 65816 Given 02/26/2008 Influenza Virus 3Yrs & Over 84792 Given 03/13/2007 Influenza Virus 3Yrs & Over 47903 Given 03/13/2007 Influenza Virus 3Yrs & Over 09499 Given 02/22/2006 Influenza Virus 3Yrs & Over Vital Signs Date Vital Result Comment 01/30/2019 1:58pm Height 63 inches 5'3" Weight 184.00 lb Heart Rate 73 /min BP Systolic 134 mmHg BP Diastolic 82 mmHg Body Temperature 99.1 F O2 % BldC Oximetry 99 % BMI (Body Mass Index) 32.6 kg/m2 12/30/2018 1:22pm Height 63 inches 5'3" Weight 184.00 lb with shoes Heart Rate 70 /min BP Systolic Sitting 110 mmHg Rue BP Diastolic Sitting 70 mmHg Rue BP Systolic Standing 108 mmHg Rue BP Diastolic Standing 74 mmHg Rue BMI (Body Mass Index) 32.6 kg/m2 Ejection Fraction 20-25% Echo 12/22/18 Results Test Date Facility Test Result H/L Range Note Laboratory test 01/28/2019 [facility] Troponin-I 0.03 ng/mL < 0.04 [address] (TnI) [place] [address] [phone] Comp Metabolic 01/28/2019 [facility] Sodium 133 mmol/L Low 135 -[address] [place] [address] [phone] Potassium 4.4 mmol/L Normal 3.5-5.0 Chloride 102 [...] Egfr 85.4 >60 2 Laboratory test 01/28/2019 [facility] Troponin-I 0.02 <0.04 [address] (TnI) ng/[place] [address] [phone] CBC Auto Diff 01/28/2019 [facility] White Blood 9.7 Normal 3.5 -10.[address] Count 10^3/[place] [address] [phone] Red Blood Count 5.32 10^6/uL High 3.70-4.87 [...] Blood Cells % 0.1 Laboratory test 01/28/2019 [facility] B-Type 179 pg/mL High <= [address] [place] [address] Peptide BNP [phone] Laboratory test 01/09/2019 [facility] GGTP 13 U/L Normal 9- 64.[address] [place] [address] [phone] Liver Function 01/09/2019 [facility] Total Protein 7.1 g/dL Normal 6.4-8.[address] [place] [address] [phone] Albumin 3.9 g/dL Normal 3.2-5.2 Globulin 3.2 g/dL Normal 2-4 Albumin/Globulin Ratio 1.2 Normal 1-3 Total Bilirubin 1.20 mg/dL High 0.2-1.0 Direct Bilirubin 0.20 mg/dL High 0.03-0.18 Indirect Bilirubin 1.0 mg/dL Normal 0.3-1.0 Alkaline Phosphatase 129 U/L High 34-104 Alt 12 U/L Normal 7-52 Ast 12 U/L Low 13-39 Laboratory test 01/09/2019 [facility] C Reactive 5.85 mg/L Normal <8.01 finding [address] [facility] [place] [address] [phone] CBC Auto Diff 01/09/2019 [facility] White Blood 6.5 Normal 3.5 -10.[address] Count 10^3/[place] [address] [phone] Red Blood Count 4.84 10^6/uL Normal 3.70-4.87 [...] Blood Cells % 0.0 Laboratory test 12/26/2018 [facility] Lactic Acid 0.9 mmol/L Normal 0.5-2.0 [address] [place] [address] [phone] CBC Auto Diff 12/26/2018 [facility] White Blood 7.8 10^3/uL Normal 3.5-10.[address] [place] [address] [phone] Red Blood Count 4.82 10^6/uL Normal 3.70-4.87 [...] Blood Cells % 0.1 Comp Metabolic 12/26/2018 [facility] Sodium 138 mmol/L Normal 135-[address] [place] [address] [phone] Potassium 3.7 mmol/L Normal 3.5-5.0 Chloride 106 [...] Egfr 117.4 >60 5 Laboratory test 12/26/2018 [facility] Troponin-I (TnI) 0.02 ng/ mL <0.04 6 finding [address] [place] [address] [phone] Laboratory test 12/22/2018 [facility] Troponin-I (TnI) 0.03 ng/ mL <0.04 7 finding [address] [place] [address] [phone] B-Type Natriuretic Peptide BNP 248 pg/mL High <=100 Comp Metabolic 12/22/2018 [facility] Sodium 139 mmol/L Normal 135-145 Panel [address] [place] [address] [phone] Potassium 3.8 mmol/L Normal 3.5-5.0 Chloride 107 [...] Egfr 129.2 >60 8 Laboratory test 12/22/2018 [facility] Partial 38.7 High 26.0- 38.[address] [place] [address] PTT [phone] D Dimer Quantitative 453 ng/mL High Less Than 230 9 Inr/Protime 12/22/2018 [facility] Inr 1.03 Normal 0.82-1.[address] [place] [address] [phone] CBC Auto Diff 12/22/2018 [facility] White Blood 7.1 Normal 3.5 -10.[address] Count 10^3/[place] [address] [phone] Red Blood Count 4.86 10^6/uL Normal 3.70-4.87 [...] Blood Cells % 0.0 CBC Auto 11/22/2018 [facility] White Blood 7.0 10^3/uL Normal 3.5-10.[address] [place] [address] [phone] Red Blood Count 4.71 10^6/uL Normal 3.70-4.87 [...] Blood Cells % 0.1 Laboratory test 11/22/2018 [facility] Hemoglobin A1c 6.5 % High 4.0-5.6 [address] (Glyco HGB) [place] [address] [phone] Comp Metabolic 11/22/2018 [facility] Sodium 139 Normal 135- [address] mmol/[place] [address] [phone] Potassium 4.2 mmol/L Normal 3.5-5.0 Chloride 105 [...] Egfr 140.3 >60 12 CBC Auto 08/22/2018 [facility] White Blood 6.1 10^3/uL Normal 3.5-10.[address] [place] [address] [phone] Red Blood Count 5.33 10^6/uL High 3.70-4.87 [...] % 0.1 Iron & Iron Binding 08/22/2018 [facility] Iron 88 g/dL Normal 50-[address] [place] [address] [phone] Unsaturated Iron Binding < 404 g/dL Total Iron Binding Capacity 419 g/dL Normal 250-450 Transferrin 299 mg/dL Normal 203-362 % Iron Saturation 21 % Normal 15-55 Laboratory test 08/22/2018 [facility] B-Type 50 pg/mL <=[address] [place] [address] Peptide BNP [phone] Liver Function 08/22/2018 [facility] Total Protein 7.5 g/dL Normal 6.4-8.9 Panel [address] [place] [address] [phone] Albumin 4.0 g/dL Normal 3.2-5.2 Globulin 3.5 g/dL Normal 2-4 Albumin/Globulin Ratio 1.1 Normal 1-3 Total Bilirubin 1.30 mg/dL High 0.2-1.0 Direct Bilirubin 0.20 mg/dL High 0.03-0.18 Indirect Bilirubin 1.1 mg/dL High 0.3-1.0 Alkaline Phosphatase 122 U/L High 34-104 Alt 14 U/L Normal 7-52 Ast 13 U/L Normal 13-39 Laboratory test 08/22/2018 [facility] Pathologist Review (SEE NOTE) 13 finding [address] [place] [address] [phone] 1 Troponin-I testing on Plasma Separator Tubes (PST) has a known false positive rate of 0.20-0.40%. All positive troponins reflex immediately to secondary confirmatory testing. Using the [employer] DxI 800 Access Immunoassay systems, the [...] immediately to secondary confirmatory testing. Using the [employer] DxI 800 Access Immunoassay systems, the 99th percentile upper reference limit was demonstrated to be < 0.03 ng/mL. 7 Verbal to [id number] by [id number] at 1446 on 12/22/18. Results read back accurately. Corrected Report. Result TnIDx:0.39 Called to [id number] at: 13:52:23 by:[id number] Read back by: [id number] CORRECTED REPORT --- Corrected on 12/22/18 1446 --- Troponin I previously reported as: 0.39 *C ng/mL Result TnIDx:0.39 Called to [id number] at: 13:52:23 by:[id number] Read back by: [id number] Troponin-I testing on Plasma Separator Tubes (PST) has a known false positive rate of 0.20-0.40%. All positive troponins reflex immediately to secondary confirmatory testing. Using the [employer] DxI 800 Access Immunoassay systems, the [...] in selective patients <6.0%. Please refer to [place] [employer] diabetic care guidelines for further [...] Villanueva Procedures Date Code Description Status 12/30/2018 92642 EKG Tracing & Interpretation Completed 12/26/2018 44639 EKG Tracing & Interpretation Completed 12/23/2018 86453 ECHO Transthorasic Realtime 2D W Doppler & Color Flow Completed Hosp 12/23/2018 34858 Treadmill Interp/Report Only Completed 12/23/2018 90934 Stress Test Supervsn W/Out I/R Completed 12/22/2018 84538 ECHO Transthorasic Realtime 2D W Doppler & Color Flow Completed Hosp 12/22/2018 63963 EKG Tracing & Interpretation Completed 09/26/2018 [id number] Diabetic Retinal Eye Exam Completed 08/01/2018 68452925 Mammogram Completed 03/11/2018 34296057 Colonoscopy Completed 09/26/2017 302814800 Diabetic Retinal Eye Exam Completed 03/15/2017 639546539 Diabetic Retinal Eye Exam Completed 12/07/2016 96667753 Mammogram Completed 09/07/2016 200104298 Diabetic Retinal Eye Exam Completed 12/02/2015 21849014 Mammogram Completed 11/19/2014 44858527 Mammogram Completed 06/28/2014 699661812 Diabetic Retinal Eye Exam Completed 11/20/2013 76559813 Mammogram Completed 09/09/2013 758335201 Diabetic Retinal Eye Exam Completed 11/13/2012 94938518 Mammogram Completed 08/20/2012 644998002 Diabetic Retinal Eye Exam Completed 05/15/2012 82961467 Mammogram Completed 12/26/2011 75293801 Mammogram Completed 12/13/2011 85936708 Mammogram Completed 08/31/2010 95333001 Colonoscopy Completed 11/13/2007 70351463 Mammogram Completed 05/14/2007 56261291 Mammogram Completed 10/18/2006 25983296 Mammogram Completed 05/07/2003 11371302 Mammogram Completed Medical Devices Description No Information Available Encounters Type Date Location Provider Dx Diagnosis Office Visit 12/30/2018 [facility] Danny Montana I42.9 Cardiomyopathy, 1:15p Of Marty Melchor M.D., unspecified FACC, FASNC I77.810 Thoracic aortic ectasia R94.31 Abnormal electrocardiogram [ECG] [EKG] Office Visit 12/26/2018 2:00p [facility] Internal Criss R07.9 Chest pain, Brandi Lau M.D. unspecified Ccmob I45.4 Nonspecific intraventricular block I49.9 Cardiac arrhythmia, unspecified Office Visit 12/23/2018 [facility] Elif Mary, I42.9 Cardiomyopathy, 10:46a Assoc,pc MAGICIAN HELPER unspecified Hospitalists R07.9 Chest pain, unspecified Office Visit 12/22/2018 [facility] R94.31 Abnormal 2:00p Cardiology Of Tom Melchor, electrocardiogram [facility], [facility] [ECG] [EKG] R07.89 Other chest pain I42.9 Cardiomyopathy, unspecified Office Visit 12/22/2018 [facility] Nino I42.9 Cardiomyopathy, 10:46a Assoc,pc [place] unspecified Hospitalists R07.9 Chest pain, unspecified R06.02 Shortness of breath Office Visit 12/22/2018 11:00a [facility] Internal Ingrid Macedo, R06.02 Shortness of Medicine - Suite DO breath R F17.290 Nicotine dependence, other tobacco product, uncomplicated Office Visit 12/01/2018 8:40a [facility] Internal Criss D64.9 AnemiaBrandi M.D. unspecified Ccmob R74.0 Nonspec elev of levels of transamns & lactic acid dehydrgnse E11.9 Type 2 diabetes mellitus without complications Office Visit 10/07/2018 8:45a [facility] Donald Palmer J32.9 Chronic Services Of Marty Alvarado M.D. sinusitis, unspecified G43.009 Migraine w/o aura, not intractable, w/o status migrainosus G50.1 Atypical facial pain Office Visit 08/29/2018 8:40a [facility] Internal Criss D64.9 AnemiaBrandi M.D. unspecified Ccmob E11.9 Type 2 diabetes mellitus without complications R74.0 Nonspec elev of levels of transamns & lactic acid dehydrgnse Office Visit 08/25/2018 3:00p [facility] Jose Ahn, G43.009 Migraine w/o aura, Neurologic MAGICIAN HELPER not intractable, Services Of Recovery Assistant w/o status migrainosus Assessments Date Code Description Provider 01/30/2019 R05 Cough Criss Lau M.D. 12/30/2018 I42.9 Cardiomyopathy, unspecified Danny Melchor M.D., [facility], [facility] 12/30/2018 I77.810 Thoracic aortic ectasia [facility].D., [facility] 12/30/2018 R94.31 Abnormal electrocardiogram [ECG] Danny Melchor M.D., [facility], [EKG] [facility] 12/26/2018 R07.9 Chest pain, unspecified Criss Lau M.D. 12/26/2018 I45.4 Nonspecific intraventricular block Criss Lau M.D. 12/26/2018 I49.9 Cardiac arrhythmia, unspecified Criss Lau M.D. 12/23/2018 R07.9 Chest pain, unspecified Catherine Bartlett MD, [facility], [facility] 12/23/2018 I42.9 Cardiomyopathy, unspecified Elif Mary, [employer] 12/23/2018 R07.9 Chest pain, unspecified Elif Mary, [employer] HEL[employer] 12/22/2018 R94.31 Abnormal electrocardiogram [ECG] Danny Melchor M.D., [facility], [EKG] [facility] 12/22/2018 R07.89 Other chest pain Danny Melchor M.D., [facility], [facility] 12/22/2018 I42.9 Cardiomyopathy, unspecified Danny Melchor M.D., [facility], [facility] 12/22/2018 I42.9 Cardiomyopathy, unspecified PRECIOUS [facility] 12/22/2018 R06.02 Shortness of breath Ingrid Macedo DO 12/22/2018 R07.9 Chest pain, unspecified PRECIOUS [facility] 12/22/2018 F17.290 Nicotine dependence, other tobacco Ingrid Macedo DO product, uncomplicated 12/22/2018 R06.02 Shortness of breath PRECOIUS [facility] 12/01/2018 D64.9 Anemia, unspecified Criss Lau [...] G43.009 Migraine without aura, not Jose Ahn, MAGICIAN HELPER intractable, without status migra Plan of Treatment Future Appointment(s):03/25/2019 10:15 am - Danny Melchor M.D., FACC, FASNC at [facility]03/17/2019 10:00 am - Traveling ECHO 1 at [facility]05/28/2019 1:20 pm - Criss Lau M.D. at [facility] Internal Medicine - Ccmob01/30/2019 - Criss Lau M.D.R05 CoughNew Medication: Doxycycline Hyclate 100 mg - 1 tab by mouth twice a day for 7 daysComments: Start the doxycyclineOver the counter medications: OK to take guaifenesin and dextromethorphanDo nottake products containing phenylephrineYou can show your medication list to the pharmacist - ask themwhat over the counter medicines you can take Vaping can make you sick - I advise you not to do this Functional Status Description No Information Available Mental Status Description No Information Available Referrals Refer to Reason for Referral Status Appt Date [facility] Sent [address] [place] [address] [phone]
--- OUTSIDE RECORDS SUMMARY | 2019-03-26 14:34 | XMS REPORT | Continuity of Care Document ---
:1960 External Reference #:[id number] Author Name Anni Vieira N.P. (transmitted by agent of provider Gladys Don) Address [address], [place] [address] Care Team Providers Name Role Phone Criss Lau MD - Internal Care Team Information [facility] [phone] Medicine Luda Craig MD - Obstetrics & Care Team Information [facility] Gynecology carissa-Diana Betancourt M.D. - Single Care Team Information [facility] - Mental Care Team Information Quad Stayer [phone] [facility]ly [facility] ENT - Clinic/Center Care Team Information Quad Stayer [phone] Roland Rey MD - Care Team Information [facility] [phone] Otolaryngology Brittaney Altamirano O.D. - Auto Clocks Repairer Care Team Information [facility] Problems Active Problems Provider Date Type 2 diabetes mellitus Felicity Negrete M.D., FACP Onset: 07/13/2010 Pure hypercholesterolemia Felicity Negrete M.D., FACP Onset: 07/13/2010 Benign essential hypertension Felicity Negrete M.D., FACP Onset: 07/13/2010 Migraine without aura, not refractory Cherelle Francis M.D. Onset: 2014 Cardiomyopathy Danny Melchor M.D., [facility], Onset: 12/30/2018 FASNC Social History Type Date [...] Medications SIG Qnty Indications Ordering Provider Date Azithromycin two tabs day 6tabs R05 Anni Varn, 02/27/2019 250mg one, one daily N.P. Tablets till gone Medrol 6 by mouth day 21units R05 Anni Varn, 02/27/2019 4mg TBPK 1, 5 by mouth N.P. day 2, 4 by mouth day 3, 3 by mouth day 4, 2 by mouth day 5, 1 by mouth day 6 Benzonatate one by mouth 30caps R05 Anni Varn, 02/27/2019 200mg three times N.P. Capsules daily as needed for cough Famotidine 1 by mouth twice 60tabs K21.9 [...] Dose Every Day Unknown 12/22/[address] Citalopram Every Day Unknown 12/22/2018 Hydrobromide 20mg Tablets Ferrous Gluconate take 1 tablet by 30tabs D50.9 Criss Lau, 2018 mouth once daily M.D. 324(38Fe) mg Tablets i Esomeprazole Take One Capsule 90caps Criss Lau, 06/04/2018 Magnesium By Mouth Every M.D. 40mg Capsules Day DR Lobo Chair For daily use Dx [facility] 08[facility]2017 r 26.81 M.D. Latanoprost Every Evening Brittaney Altamirano, 03/29/2017 0.005% O.D. Solution Vitamin B12 1 by mouth every 30tabs R26.81 [facility] 02/11/2017 1000mcg day M.D. Tablets ER Walker 4 wheels, 1units R26.81 [facility], 01/11/2017 [facility] brakes, seat and M.D. basket. r26.81 G62.9 Miralax 17 gm every day 510units R10.13 [facility] 11/17/2015 3350NF Powder mixed w/ 8 oz M.D. water/juice as needed Gabapentin Take One Capsule By 90caps E11.40 Criss Lau, 02/25/2015 100mg Mouth Twice A Day M.D. Capsules Aspirin 1 by mouth once [facility] 12/16/2014 81mg Tablets daily M.D. Metformin HCL ER Take One Tablet By 90tabs Criss Lau, 08/30/2011 Mouth Every Day M.D. 500mg Tablets ER 24HR History Medications Doxycycline Hyclate 1 tab by mouth 14tabs R05 [facility], 2018 - twice a day [...] Indications Ordering Provider Date Depomedrol 40MG Roberta Blackwood, M.D. 03/20/2017 Injection Depomedrol 40MG Roberta Blackwood M.D. 05/21/2016 Injection Depomedrol 80MG Roberta Blackwood M.D. 07/29/2014 Injection Immunizations CPT Code Status Date Vaccine Lot # [id number] Given 01/17/2018 Influenza Virus Vaccine, Quadrivalent, Split, [id number] Preservative Free 76518 Given 02/16/2016 Influ Virus Vaccine, Quadrivalent, Split Virus, [id number] [address] Given 01/21/2015 Influenza Virus Vaccine, Quadrivalent, Split, [id number] Preservative Free 39580 Given 01/24/2014 Flu Vaccine Split Virus Preservative Free For Indiv 3Yr Older 69778 Given 11/28/2011 Pneumonia Vaccine [id number] Given 03/21/2011 Afluria Vaccine [id number] 73376 Given 12/30/2009 Influenza Virus 3Yrs & Over 51447 Given 02/28/2009 Influenza Virus Vaccine, Pandemic Formulation 29231 Given 02/24/2009 Influenza Virus 3Yrs & Over 31489 Given 02/26/2008 Influenza Virus 3Yrs & Over 52565 Given 02/26/2008 Influenza Virus 3Yrs & Over 74588 Given 03/13/2007 Influenza Virus 3Yrs & Over 17618 Given 03/13/2007 Influenza Virus 3Yrs & Over 08547 Given 02/22/2006 Influenza Virus 3Yrs & Over [...] Mass Index) 32.9 kg/m2 Results Test Acquired Date Facility Test Result H/L Range Note Laboratory test 01/28/2019 [facility] Troponin-I 0.03 ng/mL < 0.04 [address] (TnI) [place] [address] [phone] Comp Metabolic 01/28/2019 [facility] Sodium 133 mmol/L Low 135 -145 [place] [address] [phone] Potassium 4.4 mmol/L Normal 3.5-5.0 Chloride 102 [...] Egfr 85.4 >60 2 Laboratory test 01/28/2019 [facility] Troponin-I 0.02 <0.04 3 finding 101 (TnI) ng/[place] [address] [phone] CBC Auto Diff 01/28/2019 [facility] White Blood 9.7 Normal 3.5 -10.8 101 Count 10^3/[place] [address] [phone] Red Blood Count 5.32 10^6/uL High 3.70-4.87 [...] Nucleated Red Blood Cells % 0.1 Laboratory 01/28/2019 [facility] B-Type 179 pg/mL High <=100 test finding [address] [place] [address] Peptide BNP [phone] CBC Auto Diff 01/09/2019 [facility] White Blood 6.5 Normal 3.5 -10.[address] Count 10^3/[place] [address] [phone] Red Blood Count 4.84 10^6/uL Normal 3.70-4.87 [...] Blood Cells % 0.0 Laboratory test 01/09/2019 [facility] C Reactive 5.85 mg/L Normal <8.[address] [place] [address] [phone] Liver Function 01/09/2019 [facility] Total Protein 7.1 g/dL Normal 6.4-8.[address] [place] [address] [phone] Albumin 3.9 g/dL Normal 3.2-5.2 Globulin 3.2 g/dL Normal 2-4 Albumin/Globulin Ratio 1.2 Normal 1-3 Total Bilirubin 1.20 mg/dL High 0.2-1.0 Direct Bilirubin 0.20 mg/dL High 0.03-0.18 Indirect Bilirubin 1.0 mg/dL Normal 0.3-1.0 Alkaline Phosphatase 129 U/L High 34-104 Alt 12 U/L Normal 7-52 Ast 12 U/L Low 13-39 Laboratory test 01/09/2019 [facility] GGTP 13 U/L Normal 9- 64.[address] [place] [address] [phone] Laboratory test 12/26/2018 [facility] Troponin-I 0.02 <0.04 4 finding [facility] (TnI) ng/[place] [address] [phone] Comp Metabolic 12/26/2018 [facility] Sodium 138 Normal 135- 145 Panel [facility] mmol/[place] [address] [phone] Potassium 3.7 mmol/L Normal 3.5-5.0 Chloride 106 [...] Non- 97.1 >60 Egfr 117.4 >60 5 CBC Auto 12/26/2018 [facility] White Blood 7.8 10^3/uL Normal 3.5-10.[address] [place] [address] [phone] Red Blood Count 4.82 10^6/uL Normal 3.70-4.87 [...] Red Blood Cells % 0.1 Laboratory test 12/26/2018 [facility] Lactic Acid 0.9 mmol/L Normal 0.5-2.0 [address] [place] [address] [phone] CBC Auto Diff 12/22/2018 [facility] White Blood 7.1 10^3/uL Normal 3.5-10.[address] [place] [address] [phone] Red Blood Count 4.86 10^6/uL Normal 3.70-4.87 [...] Red Blood Cells % 0.0 Inr/Protime 12/22/2018 [facility] Inr 1.03 Normal 0.82-1.[address] [place] [address] [phone] Laboratory test 12/22/2018 [facility] Partial 38.7 High 26.0- 38.[address] [place] [address] Time PTT [phone] D Dimer Quantitative 453 ng/mL High Less Than 230 8 Comp Metabolic 12/22/2018 [facility] Sodium 139 mmol/L Normal 135-[address] [place] [address] [phone] Potassium 3.8 mmol/L Normal 3.5-5.0 Chloride 107 [...] Egfr Non- 106.8 >60 Egfr 129.2 >60 9 Laboratory test 12/22/2018 [facility] Troponin-I (TnI) 0.03 ng/ mL <0.04 [address] [place] [address] [phone] B-Type Natriuretic Peptide BNP 248 pg/mL High <=100 CBC Auto 11/22/2018 [facility] White Blood 7.0 10^3/uL Normal 3.5-10.[address] [place] [address] [phone] Red Blood Count 4.71 10^6/uL Normal 3.70-4.87 [...] Blood Cells % 0.1 Laboratory test 11/22/2018 [facility] Hemoglobin A1c 6.5 % High 4.0-5.6 [address] (Glyco HGB) [place] [address] [phone] Comp Metabolic 11/22/2018 [facility] Sodium 139 Normal 135- [address] mmol/[place] [address] [phone] Potassium 4.2 mmol/L Normal 3.5-5.0 Chloride 105 [...] immediately to secondary confirmatory testing. Using the [employer] 800 Access Immunoassay systems, the 99th percentile [...] immediately to secondary confirmatory testing. Using the [employer] DxI 800 Access Immunoassay systems, the 99th percentile upper reference limit was demonstrated to be < 0.03 ng/mL. 4 Troponin-I testing on Plasma Separator Tubes (PST) has a known false positive rate of 0.20-0.40%. All positive troponins reflex immediately to secondary confirmatory testing. Using the [employer] DxI 800 Access Immunoassay systems, the 99th percentile upper reference limit was demonstrated to be < 0.03 ng/mL. 5 Because ethnic data is not always [...] 5 Kidney failure <15 (or dialysis) 6 [facility] Severe Sepsis and Septic Shock Management Bundle Measure requires all lactic acids initially measuring >2.0 mmol/L be repeated. 7 Standard intensity warfarin therapeutic range: 2.0-3.0 High intensity warfarin therapeutic range: 2.5-3.5 8 Please note: The following may produce a false positive D Dimer test: - Rheumatoid factor greater than 60 IU/ml - Plasma hemoglobin greater than 0.05 gm/dl - Bilirubin greater than 50 mg/dl - Lipids greater than 1000 mg/dl - FDP greater than 20 ug/ml 9 Because ethnic data is not always [...] 5 Kidney failure <15 (or dialysis) 10 Verbal to [id number] by [id number] at 1446 on 12/22/18. Results read back accurately. Corrected Report. Result TnIDx:0.39 Called to [id number] at: 13:52:23 by:[id number] Read back by: [id number] CORRECTED REPORT --- Corrected on 12/22/18 1446 --- Troponin I previously reported as: 0.39 *C ng/mL Result TnIDx:0.39 Called to [id number] at: 13:52:23 by:[id number] Read back by: [id number] Troponin-I testing on Plasma Separator Tubes (PST) has a known false positive rate of 0.20-0.40%. All positive troponins reflex immediately to secondary confirmatory testing. Using the [employer] DxI 800 Access Immunoassay systems, the 99th percentile upper reference limit was demonstrated to be < 0.03 ng/mL. 11 Therapeutic target for the treatment of diabetes mellitus patients is <7% HBA1C, and in selective patients <6.0%. Please refer to [place] [employer] diabetic care guidelines for further [...] (or dialysis) Procedures Date Code Description Status 12/30/2018 56419 EKG Tracing & Interpretation Completed 12/26/2018 13399 EKG Tracing & Interpretation Completed 12/23/2018 52642 EKG, Interpretation Only Completed 12/23/2018 93252 ECHO Transthorasic Realtime 2D W Doppler & Color Flow Completed Hosp 12/23/2018 73591 Treadmill Interp/Report Only Completed 12/23/2018 98150 Stress Test Supervsn W/Out I/R Completed 12/22/2018 34891 EKG, Interpretation Only Completed 12/22/2018 68964 ECHO Transthorasic Realtime 2D W Doppler & Color Flow Completed Hosp 12/22/2018 11872 EKG Tracing & Interpretation Completed 09/26/2018 [id number] Diabetic Retinal Eye Exam Completed 08/01/2018 [id number] Mammogram Completed 03/11/2018 66618822 Colonoscopy Completed 09/26/2017 396306705 Diabetic Retinal Eye Exam Completed 03/15/2017 [id number] Diabetic Retinal Eye Exam Completed 12/07/2016 53984962 Mammogram Completed 09/07/2016 732833387 Diabetic Retinal Eye Exam Completed 12/02/2015 27498055 Mammogram Completed 11/19/2014 85789330 Mammogram Completed 06/28/2014 788160569 Diabetic Retinal Eye Exam Completed 11/20/2013 66206513 Mammogram Completed 09/09/2013 340528437 Diabetic Retinal Eye Exam Completed 11/13/2012 47327677 Mammogram Completed 08/20/2012 975230672 Diabetic Retinal Eye Exam Completed 05/15/2012 74632164 Mammogram Completed 12/26/2011 60401332 Mammogram Completed 12/13/2011 63709077 Mammogram Completed 08/31/2010 73857102 Colonoscopy Completed 11/13/2007 [id number] Mammogram Completed 05/14/2007 23406679 Mammogram Completed 10/18/2006 44743200 Mammogram Completed 05/07/2003 34817007 Mammogram Completed Medical Devices Description No Information Available Encounters Type Date Location Provider Dx Diagnosis Office Visit 02/06/2019 [facility] Milla Calero MD J06.9 Acute upper 3:40p Medicine - [facility] respiratory infection, unspecified Office Visit 01/30/2019 [facility] Criss Lau, R05 Cough 2:00p Medicine - Cheryl Santos Office Visit 12/30/2018 [facility] Danny Montana Melchor, I42.9 Cardiomyopathy, 1:15p Of Marty Santos, AMY ALDRIDGE unspecified I77.810 Thoracic aortic ectasia R94.31 Abnormal electrocardiogram [ECG] [EKG] Office Visit 12/26/2018 2:00p [facility] Criss R07.9 Chest pain, Barndi Lau M.D. unspecified [facility] I45.4 Nonspecific intraventricular block I49.9 Cardiac arrhythmia, unspecified Office Visit 12/23/2018 [facility] Elif Mary, I42.9 Cardiomyopathy, 10:46a Assocbeth NP unspecified Hospitalists R07.9 Chest pain, unspecified [facility].31 Abnormal 2:00p Cardiology Of Tom Melchor, electrocardiogram [facility] LORETTA, AMY [ECG] [EKG] R07.89 Other chest pain I42.9 Cardiomyopathy, unspecified Office Visit 12/22/2018 [facility] Nino I42.9 Cardiomyopathy, 10:46a Assoc,pc PRECIOUS Ding unspecified Hospitalists R07.9 Chest pain, unspecified R06.02 Shortness of breath Office Visit 12/22/2018 11:00a [facility] Ingrid Macedo, R06.02 Shortness of Medicine - Suite DO breath R F17.290 Nicotine dependence, other tobacco product, uncomplicated Office Visit 12/01/2018 8:40a [facility] Criss D64.9 Anemia, Brandi Lau M.D. unspecified [facility] R74.0 Nonspec elev of levels of transamns & lactic acid dehydrgnse E11.9 Type 2 diabetes mellitus without complications Office Visit 10/07/2018 8:45a [facility] Donald Palmer J32.9 Chronic Services Of Marty Alvarado M.D. sinusitis, unspecified G43.009 Migraine w/o aura, not intractable, w/o status migrainosus G50.1 Atypical facial pain Office Visit 08/29/2018 8:40a [facility] Criss D64.9 AnemiaBrandi M.D. unspecified [facility] E11.9 Type 2 diabetes mellitus without complications R74.0 Nonspec elev of levels of transamns & lactic acid dehydrgnse Assessments Date Code Description Provider 02/27/2019 R05 Cough Anni Vieira, N.P. 02/27/2019 K21.9 Gastro-esophageal reflux disease Anni Vieira, N.P. without esophagitis 02/06/2019 J06.9 Acute upper respiratory infection, Milla Calero MD unspecified 01/30/2019 R05 Cough Criss Lau M.D. 12/30/2018 I42.9 Cardiomyopathy, unspecified Danny Melchor M.D., [facility], [facility] 12/30/2018 I77.810 Thoracic aortic ectasia Danny Melchor M.D., [facility], [facility] 12/30/2018 R94.31 Abnormal electrocardiogram [ECG] Danny Melchor M.D., [facility], [EKG] [facility] 12/26/2018 R07.9 Chest pain, unspecified Criss Lau M.D. 12/26/2018 I45.4 Nonspecific intraventricular block Criss Lau M.D. 12/26/2018 I49.9 Cardiac arrhythmia, rubyified Criss Lau M.D. 12/23/2018 R94.31 Abnormal electrocardiogram [ECG] Madhavi Chaudhary M.D. [EKG] 12/23/2018 R07.9 Chest pain, unspecified Catherine Bartlett MD, [facility], [facility] 12/23/2018 I42.9 Cardiomyopathy, unspecified Elif Mary, [employer] 12/23/2018 R07.9 Chest pain, unspecified Elif Mary, [employer] 12/22/2018 R94.31 Abnormal electrocardiogram [ECG] Madhavi Chaudhary M.D. [EKG] 12/22/2018 R94.31 Abnormal electrocardiogram [ECG] Danny Melchor M.D., [facility], [EKG] [facility] 12/22/2018 R07.89 Other chest pain Danny Melchor M.D., [facility], [facility] 12/22/2018 I42.9 Cardiomyopathy, unspecified Danny Melchor M.D., [facility], [facility] 12/22/2018 I42.9 Cardiomyopathy, unspecified PRECIOUS Mancia 12/22/2018 R06.02 Shortness of breath Ingrid Macedo, 12/22/2018 R07.9 Chest pain, unspecified PRE[facility]OUS [facility] 12/22/2018 F17.290 Nicotine dependence, other tobacco Ingrid Macedo, product, uncomplicated 12/22/2018 R06.02 Shortness of breath [...] Criss Lau M.D. transaminase and lactic a Plan of Treatment Future Appointment(s):03/25/2019 10:15 am - Danny Melchor M.D., FACC, FASNC at [facility]03/17/2019 10:00 am - Traveling ECHO 1 at [facility]05/28/2019 1:20 pm - Criss Lau M.D. at [facility] Internal Medicine - [facility]02/27/2019 - Anni Vieira N.P.R05 CoughNew Medication: Azithromycin 250 mg - two tabs day one, [...] to Reason for Referral Status Appt Date [facility] [address] [place] [phone]
[2019-03-26 14:58] LABS: ABS Basophils 0.1 10^3/ul (0-0.2); ABS Eosinophils 0.2 10^3/ul (0-0.6); ABS Lymphocytes 1.9 10^3/ul (1.0-4.8); ABS Monocytes 0.6 10^3/ul (0-0.8); ABS Neutrophils 3.7 10^3/ul (1.5-7.7); Eosinophil % 3.6 %; Hematocrit 42 % (35-47); Hemoglobin 13.9 g/dL (12.0-16.0); Lymphocyte % 28.8 %; Mean Corpuscular HGB Conc 33 g/dL (31-36); Mean Corpuscular Hemoglobin 26 pg (27-31); Mean Corpuscular Volume 80 fL (80-97); Mean Platelet Volume 8.9 fL (7.4-10.4); Platelet Count 324 10^3/uL (150-450); Red Blood Count 5.28 10^6 /uL (3.70-4.87); Red Cell Distribution Width 16 % (10-15); White Blood Count 6.5 10^3/uL (3.5-10.8)
[2019-03-26 15:07] LABS: Activated Partial Thrombo Time 40.3 seconds (26.0-38.0); INR 1.03 (0.82-1.09)
[2019-03-26 15:10] LABS: BUN/Creatinine Ratio 17.6 (8-20); Calcium 9.6 mg/dL (8.6-10.3); EGFR African American 97.5 (>60); EGFR Non-African American 80.6 (>60); Potassium 4.1 mmol/L (3.5-5.0)
[2019-03-26 15:11] LABS: Troponin I 0.01 ng/mL (<0.03)
[2019-03-26 17:48] VITALS: BP 114/51
== END 2019-03-26 18:10 | disposition home or self-care (01) ==
LOC: ED 12:47
DX: R07.9 Chest pain, unspecified (principal); R06.02 Shortness of breath; F17.210 Nicotine dependence, cigarettes, uncomplicated; E11.9 Type 2 diabetes mellitus without complications; E78.00 Pure hypercholesterolemia, unspecified; I10 Essential (primary) hypertension; K21.9 Gastro-esophageal reflux disease without esophagitis; Z79.82 Long term (current) use of aspirin; Z79.84 Long term (current) use of oral hypoglycemic drugs; Z79.899 Other long term (current) drug therapy; Z88.0 Allergy status to penicillin
CPT/HCPCS: 36415; 71046; 80048; 83880; 84484; 85025; 85610; 85730; 93005; 99283; A9270-GY

== ENCOUNTER 2019-04-03 12:03 | Emergency (ER) | payer MEDICARE, MEDICAID ==
--- NOTE | 2019-04-03 12:11 | ED ---
Psychiatric Complaint - HPI Summary HPI Summary: This pt is a 58 y/o female presenting to [facility] via EMS from [facility] after voicing suicidal ideations. Pt reports she had an argument with her friend a few days ago and is now feeling overwhelmed and sad. She states is sad her friend won't want to be friends with her anymore. She reports feeling sad for the past 3 days. Pt denies any SI plan or intent. Denies any prior hx of suicide attempt. Denies HI today. Denies visual or auditory hallucinations. Denies fever, diarrhea, nausea, vomiting, chest pain, SOB, or any other physical symptoms. Pt reports she has never felt these symptoms in the past. EMS reports stable vital signs except for a little fast heart rate. PMHx includes HTN, DM, cardiac hx. She denies any mental health hx however she takes Citalopram for depression. Medications reviewed. Allergies noted. - History Of Current Complaint Hx Obtained From: Patient, EMS Onset/Duration: Lasting Days - 3, Still Present Timing: Days - 3 Severity Currently: Moderate Character: Depressed Aggravating Factor(s): Recent Stress Alleviating Factor(s): Nothing Associated Signs And Symptoms: Negative: Hallucinating Has Suicidal: Reports: Thoughts. Denies: With A Plan, Has Prior Attempt(s) Has Homicidal: Denies: Thoughts, With A Plan Recent Stressor(s): argument with friend - Allergies/Home Medications Allergies/Adverse Reactions: Allergies Allergy/AdvReac Type Severity Reaction Status Date / Time bee venom protein (honey bee) Allergy Mild Edema Verified 04/03/19 12:53 Penicillins Allergy Mild Edema Verified 04/03/19 12:53 losartan Allergy Unknown Unknown Verified 04/03/19 12:53 Reaction Details lisinopril Allergy Unknown Verified 04/03/19 12:53 Reaction Details PMH/Surg Hx/FS Hx/Imm Hx Endocrine/Hematology History: Reports: Hx Diabetes - TYPE 2 Cardiovascular History: Reports: Hx Angina, Hx Hypercholesterolemia, Hx Hypertension - ON MEDS Denies: Hx Myocardial Infarction, Other Cardiovascular Problems/Disorders Respiratory History: Reports: Other Respiratory Problems/Disorders - emphysema Denies: Hx Asthma, Hx Chronic Obstructive Pulmonary Disease (COPD) GI History: Reports: Hx Gastroesophageal Reflux Disease Denies: Other GI Disorders History: Denies: Hx Chronic Renal Failure, Hx Dialysis, Hx Renal Disease Musculoskeletal History: Reports: Hx Arthritis - left wrist, Hx Tendonitis - RIGHT HAND Sensory History: Reports: Hx Contacts or Glasses - GLASSES Denies: Hx Hearing Aid Opthamlomology History: Reports: Hx Contacts or Glasses - GLASSES Neurological History: Reports: Hx Headaches, Hx Migraine Denies: Other Neuro Impairments/Disorders Psychiatric History: Reports: Hx Depression - Cancer History Hx Chemotherapy: No Hx Radiation Therapy: No - Surgical History Surgical History: Yes Surgery Procedure, Year, and Place: RIGHT WRIST, 2011, [facility]. GALLBLADDER, 1985, [facility]. 03/18/12, LEFT ELBOW, [facility]. 06/2016, abdominal surgery, [facility] Hx Anesthesia Reactions: No - Family History Known Family History: Negative: Cardiac Disease, Diabetes - Social History Occupation: Retired Alcohol Use: None Hx Substance Use: No Substance Use Type: Reports: None Substance Use Comment - Amount & Last Used: vape Hx Tobacco Use: Yes - OCCASIONALLY Smoking Status (MU): Light Every Day Tobacco Smoker Type: Cigarettes, eCigarettes Amount Used/How Often: 2-3 CIGS A DAY Have You Smoked in the Last Year: Yes Review of Systems Negative: Fever Negative: Chest Pain Negative: Shortness Of Breath Negative: Vomiting, Diarrhea, Nausea Psychological: Other - POSITIVE: SI thoughts, sad Positive: Depressed. Negative: Other - NEGATIVE: SI plan, HI All Other Systems Reviewed And Are Negative: Yes Physical Exam - Summary Physical Exam Summary: Constitutional: Well-developed, Well-nourished, Alert. (-) Distressed Skin: Warm, Dry HENT: Normocephalic; Atraumatic Eyes: Conjunctiva normal Neck: Musculoskeletal ROM normal neck. (-) JVD, (-) Stridor, (-) Tracheal deviation Cardio: Rhythm regular, rate normal, Heart sounds normal; Intact distal pulses; The pedal pulses are 2+ and symmetric. Radial pulses are 2+ and symmetric. (-) Murmur Pulmonary/Chest wall: Effort normal. (-) Respiratory distress, (-) Wheezes, (-) Rales Abd: Soft, (-) tenderness, (-) Distension, (-) Guarding, (-) Rebound Musculoskeletal: (-) Edema Lymph: (-) Cervical adenopathy Neuro: Alert, Oriented x3 Psych: Flat affect. Triage Information Reviewed: Yes Vital Signs On Initial Exam: Initial Vitals Temp Pulse Resp BP Pulse Ox 97.4 F 82 16 132/86 96 12/20/19 12:14 04/03/19 12:14 04/03/19 12:14 04/03/19 12:14 04/03/19 12:14 Vital Signs Reviewed: Yes Procedures - Sedation Patient Received Moderate/Deep Sedation with Procedure: No Diagnostics - Laboratory Result Diagrams: 04/03/19 12:28 04/03/19 12:28 Lab Statement: Any lab studies that have been ordered have been reviewed, and results considered in the medical decision making process. Re-Evaluation - Re-Evaluation First Eval Re-Evaluation Time: 12:11 Comment: Pt is medically cleared. Course/Dx - Course Course Of Treatment: Pt is a 58 y/o female presenting to [facility] via EMS from [facility] after voicing suicidal ideations. Patient was medically cleared. She had a mental health evalution and her case was reviewed by psychiatrist, Dr. Gonzalez. Dr. Gonzalez cleared the pt for discharge. Patient will be discharged home with follow up from [facility] as an outpatient - Differential Dx/Clinical Impression Provider Diagnosis: Adjustment disorder Discharge ED - Sign-Out/Discharge Documenting (check all that apply): Patient Departure - Discharge home - Discharge Plan Condition: Stable Disposition: HOME Referrals: Criss Lau MD [Primary Care Provider] - - Billing Disposition and Condition Condition: STABLE Disposition: Home - Attestation Statements Document Initiated by Ramy: Yes Documenting Scribe: Mandy Barros Provider For Whom Ramy is Documenting (Include Credential): Js Bradshaw MD Scribe Attestation: Mandy Kang, scribed for Js Bradshaw MD on 04/03/19 at 1618. Scribe Documentation Reviewed: Yes Provider Attestation: The documentation as recorded by the Mandy lee accurately reflects the service I personally performed and the decisions made by me, Js Bradshaw MD Status of Scribe Document: Viewed
--- OUTSIDE RECORDS SUMMARY | 2019-04-03 12:31 | XMS REPORT | Continuity of Care Document ---
:1960 External Reference #:[id number] Author Name Brittaney Altamirano O.D. Address [address] [place] [address] Care Team Providers Name Role Phone Criss Lau M.D. - Internal Care Team Information Rotary Envelope Machine Operator [phone] Medicine Cherelle Francis M.D. - Neurology Care Team Information Rotary Envelope Machine Operator [phone] Donald Alvarado M.D. - Neurology Care Team Information Rotary Envelope Machine Operator [phone] Problems Active Problems Provider Date Essential hypertension Brittaney Altamirano O.D. Onset: 08/11/2014 Gastroesophageal reflux disease Brittaney Altamirano O.D. Onset: 08/11/2014 Anxiety Brittaney Altamirano O.D. Onset: 08/11/2014 Hypercholesterolemia Brittaney Altamirano O.D. Onset: 08/11/2014 Type 2 diabetes mellitus Brittaney Altamirano O.D. Onset: 08/11/2014 Open angle with borderline findings Brittaney Altamirano O.D. Onset: 09/17/2014 Benign neoplasm of eyelid including canthus Brittaney Altamirano O.D. Onset: 03/26 Bilateral primary open angle glaucoma Brittaney Altamirano O.D. Onset: 03/26/2016 Bilateral primary open angle glaucoma Brittaney Altamirano O.D. Onset: 04/27/2016 Chronic allergic conjunctivitis Brittaney Altamirano O.D. Onset: 09/07/2016 Social History Type Date Description Comments Sex Unknown ETOH Use Denies alcohol use Tobacco Use Start: Unknown Patient has never smoked Recreational Drug Use Denies Drug Use Smoking Status Reviewed: 03/31/19 Patient has never smoked Allergies, Adverse Reactions, Alerts Active Allergies Reaction Severity Comments Date Bee Stings 08/11/2014 Penicillin 08/11/2014 Losartan 09/26/2018 Lisinopril 09/26/2018 Medications Active Medications SIG Qnty Indications Ordering Provider Date Latanoprost Instill One Drop 7.5units H40.1131 Brittaney Altamirano, 03/26/2016 0.005% In Both Eyes O.DTroy Solution Every Night Metformin HCL ER Take 1 Tablet By Unknown Mouth Every Day 500mg Tablets ER 24HR Zolmitriptan Take 1 Tablet as Unknown 5mg Needed For Tablets Migraine May Repeat Once In 2 Hours. Maxim Naproxen Take 1 Tablet By Unknown 500mg Mouth Every 8 Tablets Hours as Needed Epipen 2-Clifford Use One Time as Unknown Directed 0.3mg/0.3ML Solution Auto-Inject Amlodipine Besylate Take 1 Tablet By Unknown Mouth Every Day 2.5mg Tablets Nexium Take 1 Capsule Unknown 40mg Capsules By Mouth DR Rj Butler as Needed 2.500ml H10.45 Brittaney Altamirano, 0.2% Solution O.D. Atorvastatin Calcium Take One Tablet Unknown By Mouth Every 20mg Tablets Day Gabapentin Take One Capsule Unknown 100mg By Mouth Three Capsules Times A Day CitalopraCriss Barillas Hydrobromide M.DTroy 20mg Tablets Aspirin [address] Castillo Description No Information Available Vital Signs Date Vital Result Comment 04/24/2016 1:14pm BP Systolic 132 mmHg BP Diastolic 78 mmHg Heart Rate 50 /min Respiratory Rate 16 /min Results Description No Information Available Procedures Description No Information Available Medical Devices Description No Information Available Encounters Description No Information Available Assessments Date Code Description Provider 03/31/2019 H40.1131 Primary open-angle glaucoma, bilateral, mild Brittaney Altamirano O.D. stage Plan of Treatment 03/31/2019 - Brittaney Altamirano O.D.H40.1131 Primary open-angle glaucoma, bilateral , mild stageComments:Smoking can increase the risk of developing or worsening any eye related disease, as well as affect your overall health. If you are a smoker, we strongly recommend that you quit.If you are not a smoker, we strongly recommend that you do not start. Your glaucoma is stable at this time.Your eye pressure is within an acceptable range, and your testing does not show any Glaucoma related changes at thistime. Please continue your treatment.Follow up:6 MONTHS DFE/OCT NERVE/VF 24-2 Functional Status Description No Information Available Mental Status Description No Information Available Referrals Description No Information Available
[2019-04-03 12:43] LABS: ABS Basophils 0.1 10^3/ul (0-0.2); ABS Eosinophils 0.2 10^3/ul (0-0.6); ABS Lymphocytes 1.6 10^3/ul (1.0-4.8); ABS Monocytes 0.7 10^3/ul (0-0.8); ABS Neutrophils 5.6 10^3/ul (1.5-7.7); Eosinophil % 2.5 %; Hematocrit 44 % (35-47); Hemoglobin 14.5 g/dL (12.0-16.0); Lymphocyte % 19.6 %; Mean Corpuscular HGB Conc 33 g/dL (31-36); Mean Corpuscular Hemoglobin 27 pg (27-31); Mean Corpuscular Volume 81 fL (80-97); Mean Platelet Volume 8.9 fL (7.4-10.4); Nucleated Red Blood Cells % 0.1; Platelet Count 369 10^3/uL (150-450); Red Blood Count 5.45 10^6 /uL (3.70-4.87); Red Cell Distribution Width 17 % (10-15); White Blood Count 8.2 10^3/uL (3.5-10.8)
[2019-04-03 13:03] LABS: ALT 49 U/L (7-52); AST 23 U/L (13-39); Albumin/Globulin Ratio 1.1 (1-3); Alkaline Phosphatase 130 U/L (34-104); Anion Gap 10 mmol/L (2-11); BUN/Creatinine Ratio 8.5 (8-20); Blood Urea Nitrogen 6 mg/dL (6-24); CO2 Carbon Dioxide 22 mmol/L (22-32); Calcium 9.5 mg/dL (8.6-10.3); Chloride 106 mmol/L (101-111); EGFR African American 102.3 (>60); EGFR Non-African American 84.6 (>60); Globulin 3.8 g/dL (2-4); Glucose 109 mg/dL (70-100); Potassium 3.7 mmol/L (3.5-5.0); Sodium 138 mmol/L (135-145); Total Protein 7.8 g/dL (6.4-8.9)
[2019-04-03 13:17] LABS: Acetaminophen < 15 mcg/mL; Alcohol < 10 mg/dL (<10); Salicylate < 2.50 mg/dL (<30)
[2019-04-03 13:32] LABS: Urine Appearance Clear; Urine Bilirubin Negative (Negative); Urine Blood 1+ (Negative); Urine Color Yellow; Urine Glucose Negative (Negative); Urine Ketones Trace (Negative); Urine Nitrite Negative (Negative); Urine Protein Negative (Negative); Urine Specific Gravity 1.002 (1.010-1.030); Urine Urobilinogen Negative (Negative)
[2019-04-03 13:35] LABS: Urine Bacteria Absent (Absent); Urine Red Blood Cell 1+(3-5/hpf) (Absent); Urine Squamous Epithelial Cell Present (Absent); Urine White Blood Cell Trace(0-5/hpf) (Absent)
[2019-04-03 13:46] LABS: Urine Benzodiazepine Screen None Detected (None Detect); Urine Opiates Screen None Detected (None Detect)
[2019-04-03 15:13] VITALS: BP 116/78
== END 2019-04-03 15:12 | disposition home or self-care (01) ==
LOC: ED 12:03
DX: F43.21 Adjustment disorder with depressed mood (principal); R45.851 Suicidal ideations; E11.9 Type 2 diabetes mellitus without complications; Z79.84 Long term (current) use of oral hypoglycemic drugs; I10 Essential (primary) hypertension; K21.9 Gastro-esophageal reflux disease without esophagitis; Z79.82 Long term (current) use of aspirin; Z88.0 Allergy status to penicillin; Z88.8 Allergy status to other drugs, medicaments and biological substances; Z91.030 Bee allergy status; F17.210 Nicotine dependence, cigarettes, uncomplicated
CPT/HCPCS: 36415; 80053; 80307; 80320; 80329; 81003; 81015; 85025; 87086; 99285; G0480

== ENCOUNTER 2019-04-20 11:42 | Observation (INO) | payer MEDICARE, MEDICAID ==
[2019-04-20] MEDS ORDERED: Diazepam TAB(*) 5 MG PO ONE (13:00)
[2019-04-20] MEDS ORDERED: Clindamycin 600 MG/D5W BAG(*) 600 MG/50 ML BAG IV ONE (13:00)
[2019-04-20] MEDS ORDERED: Diazepam TAB(*) 5 MG ONE (13:32)
[2019-04-20] MEDS ORDERED: fentaNYL* 50 MCG/ML 2 ML VIAL (100 MCG VIAL) ONE (13:55)
[2019-04-20] MEDS ORDERED: Lidocaine 1% INJ* 10 MG/ML 30 ML SDV ONE (13:55)
[2019-04-20] MEDS ORDERED: Midazolam* 1 MG/ML 5 ML VIAL (5 MG) ONE (13:55)
[2019-04-20] MEDS ORDERED: Acetaminophen TAB* 325 MG PO PRN (14:41)
[2019-04-20] MEDS: oxyCODONE/Acetamin 5/325 MG* TAB PO PRN ×2 (16:07→21:37)
[2019-04-20] MEDS: metFORMIN* 500 MG TAB PO SCH (20:56)
[2019-04-20] MEDS: Carvedilol TAB* 6.25 MG PO SCH (20:57)
[2019-04-20] MEDS: Gabapentin CAP(*) 100 MG PO SCH (20:57)
[2019-04-20] MEDS ORDERED: Latanoprost 0.005%* 2.5 ml BTL BOTH EYES SCH (21:00)
[2019-04-20] MEDS: Clindamycin CAP* 150 MG PO SCH (21:37)
--- NOTE | 2019-04-20 22:57 | OP ---
CC: Danny Melchor MD * DATE OF OPERATION: 04/20/19 - ROOM #431 DATE OF : 60 SURGEON: Steven Ordoñez MD ANESTHESIA: Local anesthesia with conscious sedation. PRE-OP DIAGNOSIS: Cardiomyopathy, left ventricular dysfunction. POST-OP DIAGNOSIS: Cardiomyopathy, left ventricular dysfunction. OPERATIVE PROCEDURE: Single-chamber implantable cardioverter-defibrillator implantation. ESTIMATED BLOOD LOSS: Nil. COMPLICATIONS: None. INDICATIONS: The patient is a 59-year-old female with a history of non- ischemic cardiomyopathy. The patient has been followed by a number of years by Dr. Melchor. The patient has had repeat echocardiogram that showed an ejection fraction of less than 35%. ICD implantation was recommended for primary prevention. DESCRIPTION OF PROCEDURE: The patient was in a fasting state. Informed consent had been obtained prior to the procedure. All labs are reviewed. The patient was placed supine on the procedure table. Her left deltopectoral area was cleaned and draped in the usual fashion; 1% lidocaine was used for local anesthesia. Under ultrasound guidance, the axillary vein was entered via Seldinger technique and a guidewire was placed. A 3.5 cm incision was made in the pectoral area. Blunt dissection was carried down to the pectoral fascia and a pocket was fashioned for the ICD. Over the guidewire, a 9 [place] sheath introducer was placed through which a right ventricular ICD lead was advanced to the RV apex. The right ventricular lead is a Medtronic, model 6935, serial number [id number], and had an R-wave sensitivity of 8 impedance 589 ohms, threshold 0.5 volts at 0.5 milliseconds. The ventricular lead was sutured to the pectoral fascia. The pocket was flushed. A generator was attached appropriately to the ventricular lead. The generator is a [facility], model [id number], serial number [id number]. The device was placed in the pocket. Surgical incision was closed in 3 layers. The patient tolerated the procedure with no complications. [id number]/[facility] #: [id number] MTDD
[2019-04-21] MEDS: Clindamycin CAP* 150 MG PO SCH (05:48)
[2019-04-21] MEDS: oxyCODONE/Acetamin 5/325 MG* TAB PO PRN (05:52)
[2019-04-21] MEDS ORDERED: Aspirin EC TAB* 81 MG TAB.EC PO SCH (09:00)
[2019-04-21] MEDS ORDERED: Spironolactone TAB* 25 MG PO SCH (09:00)
[2019-04-21] MEDS ORDERED: Influenza VAC *QUAD* 2019-20* 0.5 ML SYRINGE IM ONE (09:00)
[2019-04-21] MEDS ORDERED: Atorvastatin* 40 MG TAB PO SCH (09:00)
[2019-04-21] MEDS ORDERED: Citalopram TAB* 20 MG PO SCH (09:00)
[2019-04-21] MEDS ORDERED: Famotidine TAB* 20 MG PO SCH (09:00)
[2019-04-21] MEDS: Gabapentin CAP(*) 100 MG PO SCH (09:17)
[2019-04-21] MEDS: Carvedilol TAB* 6.25 MG PO SCH (09:17)
[2019-04-21] MEDS: metFORMIN* 500 MG TAB PO SCH (09:21)
[2019-04-21] MEDS ORDERED: metFORMIN* 500 MG TAB PO SCH (10:00)
--- NOTE | 2019-04-21 11:24 | DS ---
AMENDED REPORT NOW INCLUDES DESIGNATED COSIGNER ADDENDUM NOW INCLUDED ON THIS REPORT CC: Dr. Criss Lau; Dr. Danny Melchor * DISCHARGE SUMMARY: DATE OF ADMISSION: 04/20/19 TENTATIVE DATE OF DISCHARGE: Pending no complications, 04/21/19. ATTENDING PHYSICIAN: Dr. Steven Ordoñez.* (DICTATED BY VANE DOUGLASS NP) PRIMARY PHYSICIAN: Dr. Criss Lau. PRIMARY WELLNESS NURSE: Dr. Danny Melchor. ADMITTING DIAGNOSES: 1. Nonischemic cardiomyopathy with severe left ventricular dysfunction despite optimal medical therapy, here fore elective ICD implantation. 2. History of systolic heart failure, on carvedilol and Aldactone therapy with reported allergy to EARLE inhibitors and ARB, unable to up-titrate due to relative hypotension. 3. History of type 2 diabetes mellitus, on metformin therapy. 4. History of hyperlipidemia, on statin therapy. DISCHARGE DIAGNOSES: 1. History of nonischemic cardiomyopathy with severe left ventricular dysfunction. Last assessment of ejection fraction was 30%, here for elective ICD implantation with Dr. Steven Ordoñez. She is on appropriate medical therapy. She is status post successful single-chamber ICD on 04/20/19, with no complications. 2. History of bvp-dftutpu-wvadwbsmi diabetes mellitus, on metformin therapy. 3. History of hyperlipidemia, on statin therapy. PROCEDURES PERFORMED: The patient is status post single-chamber ICD implantation with Dr. Steven Ordoñez on 04/20/19. No complications have occurred. LVEF less than 35%. She underwent successful Medtronic single-chamber implantable cardioverter- defibrillator implantation. The generator is a [employer], model [id number], serial # [id number]. The right ventricular lead is a Medtronic, model 6935, serial # [id number]. For further information, please review procedural note. COURSE OF HOSPITAL STAY: This is a pleasant 59-year-old female patient, who follows Dr. Danny Melchor of our practice due to a notable history of nonischemic cardiomyopathy with severe LV dysfunction despite optimal medical therapy. She presented to [facility] on 04/20/19 for elective ICD implantation with Dr. Steven Ordoñez. Prior to having procedure performed, she had basic blood work obtained on 04/16/19. At that time, white count was 7.6, platelets were 342. Sodium 140, potassium 4.3, creatinine 0.67. INR 1.03. She underwent the above-mentioned procedure. Post procedure, there have been no complications. She was monitored overnight on . Current vital signs: Temperature is 97.3, pulse 70, respirations 18, oxygenation 98% on 2 L nasal cannula, blood pressure 98/63. Blood pressure appears to be reflective of baseline based on review of outpatient medical notes. This morning's chest x-ray is currently pending; however, if there is no evidence of pneumothorax, she will be discharged home later today. Device interrogation from this morning is also pending, which we will await results for. The patient is stable , has been up and ambulating to bathroom with no complications. She denies chest pain, shortness of breath, or device site pain or discomfort. She has been compliant with left upper extremity arm immobilizer. DISCHARGE MEDICATIONS: Include: 1. Aldactone 12.5 mg a day. 2. Oxycodone/acetaminophen 5/325 mg tablet 1 tablet p.o. q.4 h. p.r.n. 3. Metformin 250 mg p.o. b.i.d. 4. Gabapentin 100 mg p.o. t.i.d. 5. Famotidine 20 mg a day. 6. Clindamycin 150 mg p.o. q.8 h. x3 days and then stop. 7. Citalopram 20 mg a day. 8. Coreg 6.25 mg p.o. b.i.d. 9. Lipitor 40 mg a day. 10. Aspirin 81 mg a day. ACTIVITY RESTRICTION: Physical restrictions upon discharge; the patient is aware to not lift left arm above the shoulder for 6 to 8 weeks' time. She is to wear left upper extremity arm immobilizer as directed. She is aware that she may shower starting 04/22/19. She is aware that if she notices any oozing from device site, inflammation, irritation, swelling, pain or discomfort, she is to contact our practice. She was given the on-call number for our practice. DISCHARGE LABS TO BE OBTAINED: None. FOLLOWUP APPOINTMENTS: 1. The patient is to follow up with primary physician, Dr. Criss Lau, in 7 to 10 days. 2. Follow up with Dr. Steven Ordoñez on 04/28/19 at 1245 at our [facility]. DISCHARGE WOUND CARE: Left anterior device site was examined today. The 4x4 dressing was changed. There is no evidence of pocket hematoma. Edges are well approximated with shannan in situ and is nontender to palpation. I reviewed wound care with the patient. She is aware to change dressing daily until , and then she is to leave open to air. She is aware that if she develops any inflammation, fever, oozing, swelling or redness surrounding device site, she is to contact our practice. She may shower starting 04/22/19, but she is aware not to take a bath or soak the wound. We will await device interrogation and chest x-ray, and likely discharge the patient home later today in stable condition. Dr. Steven Ordoñez has personally seen and examined the patient, and agrees with the above assessment and plan. VANE DOUGLASS NP ADDENDUM: 04/21/19 chest x-ray reviewed, no evidence of pneumothorax. Jaspertronic single-chamber defibrillator device interrogation was normal. The patient is V-paced less than 0.1%. Right ventricle capture threshold is 0.375 volts at 0.40 msec. The patient is to be discharged home. She is in stable condition. Dr. Steven Ordoñez agrees with the assessment and plan. VANE DOUGLASS NP [id number]/[facility] #: [id number]/[facility] #: [id number] EBENEZER
[2019-04-21 11:37] VITALS: BP 110/40
--- NOTE | 2019-04-21 11:41 | DS ---
DISCHARGE SUMMARY: ADDENDUM: 04/21/19 chest x-ray reviewed, no evidence of pneumothorax. [employer] single-chamber defi brillator device interrogation was normal. The patient is V- paced less than 0.1%. Right ventricle capture threshold is 0.375 volts at 0.40 msec. The patient is to be discharged home. She is in stab le condition. Dr. Steven Ordoñez agrees with the assessment and plan. VANE DOUGLASS, LORRIE [id number]/[facility] #: [id number]
== END 2019-04-21 13:14 | disposition home or self-care (01) ==
LOC: CHICATH 11:42 → ICU 14:41 → MEDTELE 17:08
PROVIDERS: ADMIT Specialist; ATTEND Specialist
DX: I42.9 Cardiomyopathy, unspecified (principal); I50.1 Left ventricular failure, unspecified; I50.20 Unspecified systolic (congestive) heart failure; E11.9 Type 2 diabetes mellitus without complications; I10 Essential (primary) hypertension; E78.00 Pure hypercholesterolemia, unspecified; Z79.84 Long term (current) use of oral hypoglycemic drugs; E78.5 Hyperlipidemia, unspecified; Z79.82 Long term (current) use of aspirin; Z79.899 Other long term (current) drug therapy; Z87.891 Personal history of nicotine dependence; R94.31 Abnormal electrocardiogram [ECG] [EKG]; Z23 Encounter for immunization
CPT/HCPCS: 33249; 71045; 71046; 87641; 90471; 90686; 96374; 99156; 99157; A9270-GY; C1722; C1892; C1895; G0008; G0378; J2250; J3010

== ENCOUNTER 2019-04-27 10:46 | Emergency (ER) | payer MEDICARE, MEDICAID ==
--- OUTSIDE RECORDS SUMMARY | 2019-04-27 11:03 | XMS REPORT ---
:1960 Author Organization [facility] Care Team Providers Name Role Phone Yulissa Dallas Primary Care Physician Unavailable Allergies, Adverse Reactions, Alerts Allergy Code CodeSystem Reaction Severity Criticality Status Start Substance Date Moderate Medications Medication Medication Medication Start Stop Route Dose Status Fill Code CodeSystem Date Date Instructions RxNorm Relevant diagnostic tests/laboratory data Narrative No Information Procedures Procedure Code CodeSystem Target Date of Status Service Device Device Device Name Site Procedure Delivery Code Name UID Location SNOMED-CT () 2019-01-[address], [id number] Psychother [id number] SNOMED-CT () 2019-02-03 completed Mental apy, 45 4 Health- minutes [place] with [facility] patient [address] [place] [address], [id number] Psychother [id number] SNOMED-CT () 2019-03-17 completed Mental apy, 45 4 Health- minutes [place] with [address], [id number] Encounters/Encounter Diagnoses Encounter Name Encounter Diagnosis Diagnosis Diagnosis Date of Service Code Code Name CodeSystem Diagnosis Delivery Location Psychotherapy - 70176 SNOMED-CT 2019-03-17 Behavioral [facility] [address] [place] [address], [id number] Vital Signs No Information Social History Element Description Description Start End Code CodeSystem AdditionalInfo Date Date SexAssignedAtBirth Female 1960- F AdministrativeGender 06-10 Hospital Discharge Instructions Reason For Referral Medical Equipment FDA Assessments
--- OUTSIDE RECORDS SUMMARY | 2019-04-27 11:03 | XMS REPORT | Continuity of Care Document ---
:1960 External Reference #:[id number] Author Name Steven Ordoñez M.D. (transmitted by agent of provider Teresa Wolf) Address [address] [place] [address] Care Team Providers Name Role Phone Criss Lau MD - Internal Care Team Information Thermal Spray Operator [phone] Medicine Luda Craig MD - Obstetrics & Care Team Information Thermal Spray Operator [phone] Gynecology carissaDiana Betancourt M.D. - Single Care Team Information Thermal Spray Operator [facility] [place], [facility] - Mental Care Team Information Thermal Spray Operator [facility]Center Care Team Information Thermal Spray Operator [phone] Roland Rey MD - Care Team Information Thermal Spray Operator [phone] Otolaryngology Brittaney Altamirano O.D. - Skin Grader Care Team Information Thermal Spray Operator Problems Active Problems Provider Date Type 2 diabetes mellitus Felicity Negrete M.D., FACP Onset: 07/13/2010 Pure hypercholesterolemia Felicity Negrete M.D., FACP Onset: 07/13/2010 Benign essential hypertension Felicity Negrete M.D., FACP Onset: 07/13/2010 Migraine without aura, not refractory Cherelle Francis M.D. Onset: 2014 Cardiomyopathy Danny Melchor M.D., [facility], Onset: 12/30/2018 FASNC Social History Type Date [...] Use Denies Drug Use Smoking Status Reviewed: 04/07/19 Patient is a former smoker Exercise Type/Frequency [...] By Mouth Every M.D. 40mg Capsules Day Showrobin Chair For daily use Dx 1units R26.81 Criss Lau, 08/27/2017 r 26.81 M.D. Latanoprost Every Evening Brittaney Altamirano, 03/29/2017 0.005% O.D. Solution Vitamin B12 1 by mouth every 30tabs R26.81 Criss Lau, 02/11/2017 1000mcg day M.D. Tablets ER Walker 4 wheels, 1units R26.81 Crissfelisha Lau, 01/11/2017 [facility] brakes, seat and M.D. basket. r26.81 G62.9 Miralax 17 gm every day 510units R10.13 Crissfelisha Lau, 11/17/2015 3350NF Powder mixed w/ 8 oz M.D. water/juice as needed Gabapentin Take One Capsule By 90caps E11.40 Criss Sid, 02/25/2015 100mg Mouth Three Times A M.D. Capsules Day Metformin HCL ER Take One Tablet By 90tabs Criss Sid, 08/30/2011 Mouth Every Day M.D. 500mg Tablets [...] 1 tab by mouth 14tabs R05 Criss Sid, 2018 - twice a day M.D. 02/06/2019 [...] CPT Code Status Date Vaccine Lot # [id number] Given 01/17/2018 Influenza Virus Vaccine, Quadrivalent, Split, [id number] Preservative Free 79736 Given 02/16/2016 Influ Virus Vaccine, Quadrivalent, Split Virus, [id number] [address] Given 01/21/2015 Influenza Virus Vaccine, Quadrivalent, Split, [id number] Preservative Free 37179 Given 01/24/2014 Flu Vaccine Split Virus Preservative Free For Indiv 3Yr Older 78747 Given 11/28/2011 Pneumonia Vaccine [id number] Given 03/21/2011 Afluria Vaccine [id number] 96761 Given 12/30/2009 Influenza Virus 3Yrs & Over 42041 Given 02/28/2009 Influenza Virus Vaccine, Pandemic Formulation 33163 Given 02/24/2009 Influenza Virus 3Yrs & Over 68794 Given 02/26/2008 Influenza Virus 3Yrs & Over 62692 Given 02/26/2008 Influenza Virus 3Yrs & Over 64373 Given 03/13/2007 Influenza Virus 3Yrs & Over 79368 Given 03/13/2007 Influenza Virus 3Yrs & Over 92532 Given 02/22/2006 Influenza Virus 3Yrs & Over Vital Signs Date Vital Result Comment 04/07/2019 10:01am Height 63 inches 5'3" Weight 185.00 lb with boots Heart Rate 84 /min left radial BP Systolic Sitting 108 mmHg ule reg cuff BP Diastolic Sitting 82 mmHg ule reg cuff BP Systolic Standing 102 mmHg ule reg cuff BP Diastolic Standing 76 mmHg ule reg cuff BMI (Body Mass Index) 32.8 kg/m2 Ejection Fraction 20-25% Echo 03/17/19 03/25/2019 10:09am Height 63 inches 5'3" Weight 180.19 lb with shoes BP Systolic Sitting 104 mmHg lue reg cuff BP Diastolic Sitting 64 mmHg lue reg cuff BP Systolic Standing 100 mmHg lue reg cuff BP Diastolic Standing 62 mmHg lue reg cuff Respiratory Rate 14 /min BMI (Body Mass Index) 31.9 kg/m2 Ejection Fraction 20-25% echo 03/17/19 Results Test Acquired Date Facility Test Result H/L Range Note CBC Auto 04/03/2019 [facility] White Blood 8.2 10^3/uL Normal 3.5-10.[address] [place] [address] [phone] Red Blood Count 5.45 10^6/uL High 3.70-4.87 Hemoglobin 14.5 g/dL Normal 12.0-16.0 Hematocrit 44 % Normal 35-47 Mean Corpuscular Volume 81 fL Normal 80-97 Mean Corpuscular Hemoglobin 27 pg Normal 27-31 Mean Corpuscular HGB Conc 33 g/dL Normal 31-36 Red Cell Distribution Width 17 % High 10-15 Platelet Count 369 10^3/uL Normal 150-450 Mean Platelet Volume 8.9 fL Normal 7.4-10.4 Abs Neutrophils 5.6 10^3/uL Normal 1.5-7.7 Abs Lymphocytes 1.6 10^3/uL Normal 1.0-4.8 Abs Monocytes 0.7 10^3/uL Normal 0-0.8 Abs Eosinophils 0.2 10^3/uL Normal 0-0.6 Abs Basophils 0.1 10^3/uL Normal 0-0.2 Abs Nucleated RBC 0.0 10^3/uL Granulocyte % 67.9 % Lymphocyte % 19.6 % Monocyte % 9.1 % Eosinophil % 2.5 % Basophil % 0.9 % Nucleated Red Blood Cells % 0.1 Urinalysis Profile 04/03/2019 [facility] Urine Color Yellow [address] [place] [address] [phone] Urine Appearance Clear Urine Specific [place] 1.002 Low 1.010-1.030 Urine pH 6.0 Normal 5-9 Urine Urobilinogen Negative Negative Urine Ketones Trace Abnormal Negative Urine Protein Negative Negative Urine Leukocytes Negative Negative Urine Blood 1+ Abnormal Negative Urine Nitrite Negative Negative Urine Bilirubin Negative Negative Urine Glucose Negative Negative Urine White Blood Cell Trace(0-5/hpf) Absent Urine Red Blood Cell 1+(3-5/hpf) Abnormal Absent Urine Bacteria Absent Absent Urine Squamous Epithelial Cell Present Abnormal Absent Comp Metabolic 04/03/2019 [facility] Sodium 138 mmol/L Normal 135-[address] [place], [place] [id number] [phone] Potassium 3.7 mmol/L Normal 3.5-5.0 Chloride 106 mmol/L Normal 101-111 Co2 Carbon Dioxide 22 mmol/L Normal 22-32 Anion Gap 10 mmol/L Normal 2-11 Glucose 109 mg/dL High 70-100 Blood Urea Nitrogen 6 mg/dL Normal 6-24 Creatinine 0.71 mg/dL Normal 0.51-0.95 BUN/Creatinine Ratio 8.5 Normal 8-20 Calcium 9.5 mg/dL Normal 8.6-10.3 Total Protein 7.8 g/dL Normal 6.4-8.9 Albumin 4.0 g/dL Normal 3.2-5.2 Globulin 3.8 g/dL Normal 2-4 Albumin/Globulin Ratio 1.1 Normal 1-3 Total Bilirubin 1.40 mg/dL High 0.2-1.0 Alkaline Phosphatase 130 U/L High 34-104 Alt 49 U/L Normal 7-52 Ast 23 U/L Normal 13-39 Egfr Non- 84.6 >60 Egfr 102.3 >60 1 Laboratory test 04/03/2019 [facility] Acetaminophen < 15 g/mL [address] [place] [address] [phone] Alcohol < 10 mg/dL Normal <10 Salicylate < 2.50 mg/dL <30 Urine Drug 04/03/2019 [facility] Urine None Detected None Detect SCR ED & [address] Amp[place] [address] Screen [phone] Urine Barbiturates Screen None Detected None Detect Urine Benzodiazepine Screen None Detected None Detect Urine Cannabinoids Screen None Detected None Detect Urine Cocaine Screen None Detected None Detect Urine Opiates Screen None Detected None Detect Urine Phencyclidine Screen None Detected None Detect 3 Urine Culture And 04/03/2019 [facility] Urine Culture SEE RESULT [address] [place] [address] [phone] Laboratory test 03/26/2019 [facility] Troponin-I 0.01 ng/mL < 0.03 [address] (TnI) [place] [address] [phone] B-Type Natriuretic Peptide BNP 183 pg/mL High <=100 Basic Metabolic 03/26/2019 [facility] Sodium 140 mmol/L Normal 135-[address] [place] [address] [phone] Potassium 4.1 mmol/L Normal 3.5-5.0 Chloride 105 mmol/L Normal 101-111 Co2 Carbon Dioxide 26 mmol/L Normal 22-32 Anion Gap 9 mmol/L Normal 2-11 Glucose 95 mg/dL Normal 70-100 Blood Urea Nitrogen 13 mg/dL Normal 6-24 Creatinine 0.74 mg/dL Normal 0.51-0.95 BUN/Creatinine Ratio 17.6 Normal 8-20 Calcium 9.6 mg/dL Normal 8.6-10.3 Egfr Non- 80.6 >60 Egfr 97.5 >60 6 CBC Auto 03/26/2019 [facility] White Blood 6.5 10^3/uL Normal 3.5-10.[address] [place] [address] [phone] Red Blood Count 5.28 10^6/uL High 3.70-4.87 Hemoglobin 13.9 g/dL Normal 12.0-16.0 Hematocrit 42 % Normal 35-47 Mean Corpuscular Volume 80 fL Normal 80-97 Mean Corpuscular Hemoglobin 26 pg Low 27-31 Mean Corpuscular HGB Conc 33 g/dL Normal 31-36 Red Cell Distribution Width 16 % High 10-15 Platelet Count 324 10^3/uL Normal 150-450 Mean Platelet Volume 8.9 fL Normal 7.4-10.4 Abs Neutrophils 3.7 10^3/uL Normal 1.5-7.7 Abs Lymphocytes 1.9 10^3/uL Normal 1.0-4.8 Abs Monocytes 0.6 10^3/uL Normal 0-0.8 Abs Eosinophils 0.2 10^3/uL Normal 0-0.6 Abs Basophils 0.1 10^3/uL Normal 0-0.2 Abs Nucleated RBC 0.0 10^3/uL Granulocyte % 57.8 % Lymphocyte % 28.8 % Monocyte % 8.9 % Eosinophil % 3.6 % Basophil % 0.9 % Nucleated Red Blood Cells % 0.0 Laboratory test 03/26/2019 [facility] Partial 40.3 High 26.0- 38.[address] [place] [address] Time PTT [phone] Inr/Protime 03/26/2019 [facility] Inr 1.03 Normal 0.82-1.[address] [place] [address] [phone] Laboratory test 03/26/2019 [facility] Troponin-I 0.01 ng/mL < 0.[address] (TnI) [place] [address] [phone] Laboratory test 01/28/2019 [facility] Troponin-I 0.03 ng/mL < 0.[address] (TnI) [place] [address] [phone] Comp Metabolic 01/28/2019 [facility] Sodium 133 mmol/L Low 135 -145 [place] [address] [phone] Potassium 4.4 mmol/L Normal 3.5-5.0 Chloride 102 [...] Egfr Non- 70.6 >60 Egfr 85.4 >60 10 Laboratory 01/28/2019 [facility] Troponin-I 0.02 <0.04 11 test finding 101 (TnI) ng/[place] [address] [phone] CBC Auto Diff 01/28/2019 [facility] White Blood 9.7 Normal 3.5 -10.[address] Count 10^3/[place] [address] [phone] Red Blood Count 5.32 10^6/uL High 3.70-4.87 [...] 179 pg/mL High <= 100 finding 101 [facility] [place] [address] Peptide BNP [phone] Laboratory test 01/09/2019 [facility] GGTP 13 U/L Normal 9- 64.0 finding [address] [place] [address] [phone] Liver Function 01/09/2019 [facility] Total Protein 7.1 g/dL Normal 6.4-8.9 Panel [address] [place] [address] [phone] Albumin 3.9 g/dL Normal 3.2-5.2 Globulin 3.2 g/dL Normal 2-4 Albumin/Globulin Ratio 1.2 Normal 1-3 Total Bilirubin 1.20 mg/dL High 0.2-1.0 Direct Bilirubin 0.20 mg/dL High 0.03-0.18 Indirect Bilirubin 1.0 mg/dL Normal 0.3-1.0 Alkaline Phosphatase 129 U/L High 34-104 Alt 12 U/L Normal 7-52 Ast 12 U/L Low 13-39 CBC Auto 01/09/2019 [facility] White Blood 6.5 10^3/uL Normal 3.5-10.[address] [place] [address] [phone] Red Blood Count 4.84 10^6/uL Normal 3.70-4.87 [...] [facility] C Reactive 5.85 Normal < 8.[address] Protein mg/[place] [address] [phone] Laboratory test 12/26/2018 [facility] Lactic Acid 0.9 Normal 0.5-2.0 [address] mmol/[place] [address] [phone] CBC Auto Diff 12/26/2018 [facility] White Blood 7.8 Normal 3.5 -10.[address] Count 10^3/[place] [address] [phone] Red Blood Count 4.82 10^6/uL Normal 3.70-4.87 [...] 138 mmol/L Normal 135-145 Panel [address] [place] [address] [phone] Potassium 3.7 mmol/L Normal 3.5-5.0 Chloride 106 [...] Egfr Non- 97.1 >60 Egfr 117.4 >60 13 Laboratory test 12/26/2018 [facility] Troponin-I (TnI) 0.02 ng/ mL <0.04 14 finding [address] [place] [address] [phone] Laboratory test 12/22/2018 [facility] Troponin-I (TnI) 0.03 ng/ mL <0.04 [address] [place] [address] [phone] B-Type Natriuretic Peptide BNP 248 pg/mL High <=100 Comp Metabolic 12/22/2018 [facility] Sodium 139 mmol/L Normal 135-[address] [place] [address] [phone] Potassium 3.8 mmol/L Normal 3.5-5.0 Chloride 107 [...] Egfr Non- 106.8 >60 Egfr 129.2 >60 16 Laboratory test 12/22/2018 [facility] Partial 38.7 High 26.0- 38.[address] [place] [address] PTT [phone] D Dimer Quantitative 453 ng/mL High Less Than 230 17 Inr/Protime 12/22/2018 [facility] Inr 1.03 Normal 0.82-1.[address] [place] [address] [phone] CBC Auto Diff 12/22/2018 [facility] White Blood 7.1 Normal 3.5 -10.[address] Count 10^3/[place] [address] [phone] Red Blood Count 4.86 10^6/uL Normal 3.70-4.87 [...] Normal 3.5-10.[address] [place] [address] [phone] Red Blood Count 4.71 10^6/uL Normal 3.70-4.87 [...] Center Hemoglobin A1c 6.5 % High 4.0-5.6 [address] (Glyco HGB) [place] [address] [phone] Comp Metabolic 11/22/2018 [facility] Sodium 139 Normal 135- [address] mmol/[place] [address] [phone] Potassium 4.2 mmol/L Normal 3.5-5.0 Chloride 105 [...] Egfr Non- 116.0 >60 Egfr 140.3 >60 20 1 Because ethnic data is not always readily [...] 15-29 5 Kidney failure <15 (or dialysis) 2 Therapeutic concentration: <50 ug/mL Toxic concentration: >120 ug/mL 3 The urine specimen was tested at the listed cutoffs: Drug class test level (ng/mL) Amphetamines 500 Barbiturates 200 Benzodiazepine metabolites 200 Cocaine metabolites 150 Cannabinoids 50 Opiates 300 Pcp 25 Specimen was received without chain of custody. Results should be used for medical purposes only. 4 SEE RESULT BELOW Name: ODESSA ELIAS : [address]: Js Bradshaw MD Acct: [id number] Unit: [id number] AGE: 58 Location: ED Re04/03/19 SEX: F Status: DEP ER SPEC: [id number] ENRIQUE: 04/03/[address]: Js Bradshaw MD REQ: [id number] RECD: 04/03/19 STATUS: [facility] MALCOL[facility] DR: Criss Lau MD _ SOURCE: URINE SPDC: ORDERED: Urine Culture Procedure Result Reported Site Urine Culture Final 04/04/19- 1007 ML Few Enterobacteriacae; possible contamination. * [facility] - Main Lab . END OF REPORT DEPARTMENT OF PATHOLOGY, [address] [place] [address] Roddy Villanueva M.D. Director [facility] # [id number] 5 Troponin-I testing on Plasma Separator Tubes (PST) has a known false positive rate of 0.20-0.40%. All positive troponins reflex immediately to secondary confirmatory testing. Using the [employer] DxI 800 Access Immunoassay systems, the 99th percentile upper reference limit was demonstrated to be < 0.03 ng/mL. 6 Because ethnic data is not always [...] 5 Kidney failure <15 (or dialysis) 7 Standard intensity warfarin therapeutic range: 2.0-3.0 High intensity warfarin therapeutic range: 2.5-3.5 8 Troponin-I testing on Plasma Separator Tubes (PST) has a known false positive rate of 0.20-0.40%. All positive troponins reflex immediately to secondary confirmatory testing. Using the [employer] DxI 800 Access Immunoassay systems, the 99th percentile upper reference limit was demonstrated to be < 0.03 ng/mL. 9 Troponin-I testing on Plasma Separator Tubes (PST) has a known false positive rate of 0.20-0.40%. All positive troponins reflex immediately to secondary confirmatory testing. Using the [employer] DxI 800 Access Immunoassay systems, the 99th percentile upper reference limit was demonstrated to be < 0.03 ng/mL. 10 Because ethnic data is not always readily [...] 15-29 5 Kidney failure <15 (or dialysis) 11 Troponin-I testing on Plasma Separator Tubes (PST) has a known false positive rate of 0.20-0.40%. All positive troponins reflex immediately to secondary confirmatory testing. Using the [employer] DxI 800 Access Immunoassay systems, the 99th percentile upper reference limit was demonstrated to be < 0.03 ng/mL. 12 [facility] Severe Sepsis and Septic Shock Management Bundle Measure requires all lactic acids initially measuring >2.0 mmol/L be repeated. 13 Because ethnic data is not always readily [...] 15-29 5 Kidney failure <15 (or dialysis) 14 Troponin-I testing on Plasma Separator Tubes (PST) has a known false positive rate of 0.20-0.40%. All positive troponins reflex immediately to secondary confirmatory testing. Using the [employer] DxI 800 Access Immunoassay systems, the 99th percentile upper reference limit was demonstrated to be < 0.03 ng/mL. 15 Verbal to [id number] by [id number] at 1446 on 12/22/18. Results read back accurately. Corrected Report. Result TnIDx:0.39 Called to [id number] at: 13:52:23 by:[id number] Read back by: [id number] CORRECTED REPORT --- Corrected on 12/22/18 1446 --- Troponin I previously reported as: 0.39 *C ng/mL Result TnIDx:0.39 Called to [id number] at: 13:52:23 by:[email or web address] Read back by: [id number] Troponin-I testing on Plasma Separator Tubes (PST) has a known false positive rate of 0.20-0.40%. All positive troponins reflex immediately to secondary confirmatory testing. Using the [employer] DxI 800 Access Immunoassay systems, the 99th percentile upper reference limit was demonstrated to be < 0.03 ng/mL. 16 Because ethnic data is not always readily [...] 15-29 5 Kidney failure <15 (or dialysis) 17 Please note: The following may produce a false positive D Dimer test: - Rheumatoid factor greater than 60 IU/ml - Plasma hemoglobin greater than 0.05 gm/dl - Bilirubin greater than 50 mg/dl - Lipids greater than 1000 mg/dl - FDP greater than 20 ug/ml 18 Standard intensity warfarin therapeutic range: 2.0-3.0 High intensity warfarin therapeutic range: 2.5-3.5 19 Therapeutic target for the treatment of diabetes mellitus patients is <7% HBA1C, and in selective patients <6.0%. Please refer to [employer] diabetic care guidelines for further information. 20 Because ethnic data is not always readily [...] dialysis) Procedures Date Code Description Status 03/17/2019 63444 ECHO Transthoracic, Real-Time 2D With Doppler And Completed Color Flow 03/17/2019 02926 ECHO Transthoracic, Real-Time 2D With Doppler And Completed Color Flow 12/30/2018 08791 EKG Tracing & Interpretation Completed 12/26/2018 59088 EKG Tracing & Interpretation Completed 12/23/2018 18272 ECHO Transthorasic Realtime 2D W Doppler & Color Flow Completed Hosp 12/23/2018 17946 Treadmill Interp/Report Only Completed 12/23/2018 75038 Stress Test Supervsn W/Out I/R Completed 12/23/2018 84843 EKG, Interpretation Only Completed 12/22/2018 61698 ECHO Transthorasic Realtime 2D W Doppler & Color Flow Completed Hosp 12/22/2018 22110 EKG, Interpretation Only Completed 12/22/2018 12365 EKG Tracing & Interpretation Completed 09/26/2018 [id number] Diabetic Retinal Eye Exam Completed 08/01/2018 [id number] Mammogram Completed 03/11/2018 84028961 Colonoscopy Completed 09/26/2017 [id number] Diabetic Retinal Eye Exam Completed 03/15/2017 592646031 Diabetic Retinal Eye Exam Completed 12/07/2016 30406568 Mammogram Completed 09/07/2016 192953655 Diabetic Retinal Eye Exam Completed 12/02/2015 16379730 Mammogram Completed 11/19/2014 26406847 Mammogram Completed 06/28/2014 [id number] Diabetic Retinal Eye Exam Completed 11/20/2013 11539236 Mammogram Completed 09/09/2013 111078742 Diabetic Retinal Eye Exam Completed 11/13/2012 92410197 Mammogram Completed 08/20/2012 139234426 Diabetic Retinal Eye Exam Completed 05/15/2012 77072158 Mammogram Completed 12/26/2011 18553055 Mammogram Completed 12/13/2011 87268080 Mammogram Completed 08/31/2010 95067210 Colonoscopy Completed 11/13/2007 07752811 Mammogram Completed 05/14/2007 79836554 Mammogram Completed 10/18/2006 87539818 Mammogram Completed 05/07/2003 76431697 Mammogram Completed Medical Devices Description No Information Available Encounters Type Date Location Provider Dx Diagnosis Office Visit 04/07/2019 [facility] Steven Delgado I42.9 Cardiomyopathy, 11:30a Of Marty Ordoñez M.D. unspecified R94.31 Abnormal electrocardiogram [ECG] [EKG] Office Visit 03/25/2019 [facility] Danny Boyle I42.9 Cardiomyopathy, 10:15a Cardiology Of Tom Melchor, unspecified Hop Picker FACC, FASNC Office Visit 02/27/2019 [facility] Internal Anni Vieira R05 Cough 3:00p Medicine - Ccmob N.P. K21.9 Gastro-esophageal reflux disease without esophagitis Office Visit 02/06/2019 3:40p [facility] Internal Milla Calero MD J06.9 Acute upper Medicine - Ccmob respiratory infection, unspecified Office Visit 01/30/2019 2:00p [facility] Internal Criss R05 Cough Medicine - CcmCharo Chavez.D. Office Visit 12/30/2018 1:15p [facility] Danny Montana I42.9 Cardiomyopathy, Of Marty Melchor M.D., unspecified FACC, FASNC I77.810 Thoracic aortic ectasia R94.31 Abnormal electrocardiogram [ECG] [EKG] Office Visit 12/26/2018 2:00p [facility] Internal Criss R07.9 Chest pain, Brandi Lau M.D. unspecified Ccmob I45.4 Nonspecific intraventricular block I49.9 Cardiac arrhythmia, unspecified Office Visit 12/23/2018 [facility] Elif Mary, I42.9 Cardiomyopathy, 10:46a Assoc,pc [employer]ESEM[employer]ING [employer]ER unspecified Hospitalists R07.9 Chest pain, unspecified Office Visit 12/22/2018 [facility] Danny Boyle R94.31 Abnormal 2:00p Cardiology Of Tom Melchor, electrocardiogram [facility] FAC, FASIESHA [ECG] [EKG] R07.89 Other chest pain I42.9 Cardiomyopathy, unspecified Office Visit 12/22/2018 [facility] Nino I42.9 Cardiomyopathy, 10:46a Assoc,pc PRECIOUS Ding unspecified Hospitalists R07.9 Chest pain, unspecified R06.02 Shortness of breath Office Visit 12/22/2018 11:00a [facility] Internal Ingrid Senner, R06.02 Shortness of Medicine - Suite DO breath R F17.290 Nicotine dependence, other tobacco product, uncomplicated Office Visit 12/01/2018 8:40a [facility] Internal Criss D64.9 Anemia, Brandi Lau M.D. unspecified Ccmob R74.0 Nonspec elev of levels of transamns & lactic acid dehydrgnse E11.9 Type 2 diabetes mellitus without complications Office Visit 10/07/2018 8:45a [facility] Donald Palmer J32.9 Chronic Services Of Marty Alvarado M.D. sinusitis, unspecified G43.009 Migraine w/o aura, not intractable, w/o status migrainosus G50.1 Atypical facial pain Assessments Date Code Description Provider 04/07/2019 I42.9 Cardiomyopathy, unspecified Steven Ordoñez M.D. 04/07/2019 R94.31 Abnormal electrocardiogram [ECG] Steven Ordoñez M.D. [EKG] 03/25/2019 I42.9 Cardiomyopathy, unspecified Danny Melchor M.D., [facility], [facility] 03/17/2019 I42.9 Cardiomyopathy, unspecified Danny Melchor M.D., [facility], [facility] 03/17/2019 I42.9 Cardiomyopathy, unspecified Traveling ECHO 1 02/27/2019 R05 Cough Anni Vieira, N.P. 02/27/2019 K21.9 Gastro-esophageal reflux disease Anni Varprecious, N.P. without esophagitis 02/06/2019 J06.9 Acute upper respiratory infection, Milla Calero MD unspecified 01/30/2019 R05 Cough Criss Lau M.D. 12/30/2018 I42.9 Cardiomyopathy, unspecified Danny Melchor M.D., [facility], [facility] 12/30/2018 I77.810 Thoracic aortic ectasia Danny Melchor M.D., [facility], [facility] 12/30/2018 R94.31 Abnormal electrocardiogram [ECG] Danny Melchor M.D., [facility], [EKG] [facility] 12/26/2018 R07.9 Chest pain, unspecified Criss Lau M.D. 12/26/2018 I45.4 Nonspecific intraventricular block Criss Lau M.D. 12/26/2018 I49.9 Cardiac arrhythmia, unspecified Criss Lau M.D. 12/23/2018 R94.31 Abnormal electrocardiogram [ECG] Madhavi Chaudhary M.D. 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 [EKG] 12/22/2018 R94.31 Abnormal electrocardiogram [ECG] Danny Melchor M.D., [facility], [EKG] [facility] 12/22/2018 R07.89 Other chest pain Danny Melchor M.D., [facility], [facility] 12/22/2018 I42.9 Cardiomyopathy, unspecified Danny Montana Melchor M.D., [facility], [facility] 12/22/2018 I42.9 Cardiomyopathy, unspecified PRECIOUS [facility] 12/22/2018 R06.02 Shortness of breath Ingrid Macedo, DO 12/22/2018 R07.9 Chest pain, unspecified PRECIOUS [...] Donald Alvarado M.D. Plan of Treatment Future Appointment(s):04/28/2019 1:00 pm - Steven Ordoñez M.D. at [facility] [place] [facility] [place] 1:00 pm - Steven Ordoñez M.D. at [facility]05/28/2019 1:20 pm - Criss Lau M.D. at [facility] - [facility]04/07/2019 - Steven Ordoñez M.D.I42.9 Cardiomyopathy, unspecifiedNew Orders:Implant Defibrillator, Ordered: 04/07/19Follow up:1 week after ICDR94.31 Abnormal electrocardiogram [ECG] [EKG] Functional Status Description No Information Available Mental Status Description No Information Available Referrals Refer to Reason for Referral Status Appt Date Steven Ordoñez MD Dear Dr. Ordoñez, pt has persistent severe Sent non-ischemic CMP. Please evaluate Ms. Elias for ICD for primary prophylaxis for SCD. [address] [place] [address] [phone] [facility] [address] [place] [address] [phone]
--- OUTSIDE RECORDS SUMMARY | 2019-04-27 11:03 | XMS REPORT ---
:1960 Author Organization [facility] Care Team Providers Name Role Phone Yulissa [...] Site Procedure Delivery Code Name UID Location Psychother [id number] SNOMED-CT () 2019-02-03 completed Mental apy, 45 4 Health- minutes [place] with [facility] patient [address] [place] [address], [id number] Psychother [id number] SNOMED-CT () 2019-03-17 completed Mental apy, 45 4 Health- minutes [place] with [facility] patient [address] [place] [address], [id number] SNOMED-CT () 2019-01-[address], [id number] SNOMED-CT () 2019-04-[address], [id number] Encounters/Encounter Diagnoses Encounter Name Encounter Diagnosis Diagnosis Diagnosis Date of Service Code Code Name CodeSystem Diagnosis Delivery Location Crisis H2011 SNOMED-CT 2019-04-03 [facility] [address] [place] [address], [phone] Vital Signs No Information Social History Element Description Description Start End Code CodeSystem AdditionalInfo Date Date SexAssignedAtBirth Female 1959-04 F AdministrativeGender 06-10 Hospital Discharge Instructions Reason For Referral Medical Equipment FDA Assessments
--- NOTE | 2019-04-27 11:18 | ED ---
Shortness of Breath - HPI Summary HPI Summary: Pt is a 59 y/o F presenting to the ED with a chief complaint of shortness of breath that she states initially started 3 years ago and has since worsened. She notes she stopped smoking 2 weeks ago, 1 week prior to having her pacemaker placed by Dr. Ordoñez. She also reports a cough. She denies chest pain, fever, or LE edema. - History of Current Complaint Chief Complaint: EDShortnessOfBreath Time Seen by Provider: 04/27/19 10:58 Hx Obtained From: Patient Onset/Duration: Gradual Onset, Lasting Weeks, Still Present Timing: Constant Current Severity: Mild Dyspnea At: Rest Aggravating Factors: Nothing Alleviating Factors: Nothing Associated Signs & Symptoms: Cough (Nonproductive) - Allergy/Home Medications Allergies/Adverse Reactions: Allergies Allergy/AdvReac Type Severity Reaction Status Date / Time bee venom protein (honey bee) Allergy Mild Edema Verified 04/03/19 12:53 Penicillins Allergy Mild Edema Verified 04/03/19 12:53 losartan Allergy Unknown Unknown Verified 04/03/19 12:53 Reaction Details lisinopril Allergy Unknown Verified 04/03/19 12:53 Reaction Details Home Medications: Home Medications Metformin ER (NF) 500 mg PO DAILY 04/27/19 [History Confirmed 04/27/19] PMH/Surg Hx/FS Hx/Imm Hx Previously Healthy: Yes Endocrine/Hematology History: Reports: Hx Diabetes - TYPE 2 Cardiovascular History: Reports: Hx Angina, Hx Hypercholesterolemia, Hx Hypertension - ON MEDS, Hx Pacemaker/ICD - placed 04/20/2019 Denies: Hx Myocardial Infarction, Other Cardiovascular Problems/Disorders Respiratory History: Reports: Other Respiratory Problems/Disorders - emphysema Denies: Hx Asthma, Hx Chronic Obstructive Pulmonary Disease (COPD) GI History: Reports: Hx Gastroesophageal Reflux Disease Denies: Other GI Disorders History: Denies: Hx Chronic Renal Failure, Hx Dialysis, Hx Renal Disease Musculoskeletal History: Reports: Hx Arthritis - left wrist, Hx Tendonitis - RIGHT HAND Sensory History: Reports: Hx Contacts or Glasses Denies: Hx Hearing Aid Opthamlomology History: Reports: Hx Contacts or Glasses Neurological History: Reports: Hx Headaches, Hx Migraine Denies: Other Neuro Impairments/Disorders Psychiatric History: Reports: Hx Anxiety, Hx Depression - Cancer History Hx Chemotherapy: No Hx Radiation Therapy: No - Surgical History Surgery Procedure, Year, and Place: RIGHT WRIST, 2010, [facility]. GALLBLADDER, 1985, [facility]. 03/18/12, LEFT ELBOW, [facility]. 06/2016, abdominal surgery, [facility] Hx Anesthesia Reactions: No Infectious Disease History: No Infectious Disease History: Denies: Traveled Outside the [place] in Last 30 Days - Family History Known Family History: Negative: Cardiac Disease, Diabetes - Social History Alcohol Use: None Hx Substance Use: No Substance Use Type: Reports: None Substance Use Comment - Amount & Last Used: vape Hx Tobacco Use: Yes - OCCASIONALLY Smoking Status (MU): Former Smoker Type: Cigarettes, eCigarettes Amount Used/How Often: 2-3 CIGS A DAY Have You Smoked in the Last Year: Yes Review of Systems Negative: Fever Negative: Chest Pain Positive: Shortness Of Breath, Cough Negative: Edema All Other Systems Reviewed And Are Negative: Yes Physical Exam - Summary Physical Exam Summary: VITAL SIGNS: Reviewed. GENERAL: Patient is a well-developed and nourished female who is lying comfortable in the stretcher. Patient is not in any acute respiratory distress. HEAD AND FACE: No signs of trauma. No ecchymosis, hematomas or skull depressions. No sinus tenderness.. EYES: PERRLA, EOMI x 2, No injected conjunctiva, no nystagmus. EARS: Hearing grossly intact. Ear canals and tympanic membranes are within normal limits. MOUTH: Oropharynx within normal limits. NECK: Supple, trachea is midline, no adenopathy, no JVD, no carotid bruit, no c- spine tenderness, neck with full ROM. CHEST: Symmetric, no tenderness at palpation. LUNGS: Clear to auscultation bilaterally. No wheezing or crackles. CVS: Regular rate and rhythm, S1 and S2 present, no murmurs or gallops appreciated. ABDOMEN: Soft, non-tender. No signs of distention. No rebound, no guarding, and no masses palpated. Bowel sounds are normal. EXTREMITIES: FROM in all major joints, no edema, no cyanosis or clubbing. NEURO: Alert and oriented x 3. No acute neurological deficits. Speech is normal and follows commands. SKIN: Dry and warm. [place] shaped scar over recently placed pacemaker that is clean, dry, and intact. Triage Information Reviewed: Yes Vital Signs On Initial Exam: Initial Vitals Temp Pulse Resp BP Pulse Ox 98.2 F 92 25 117/50 97 04/27/19 10:52 04/27/19 10:52 04/27/19 10:52 04/27/19 10:52 04/27/19 10:52 Vital Signs Reviewed: Yes Procedures - Sedation Patient Received Moderate/Deep Sedation with Procedure: No Diagnostics - Vital Signs Vital Signs Temp Pulse Resp BP Pulse Ox 04/27/19 10:52 98.2 F 92 25 117/50 97 - Laboratory Result Diagrams: 04/27/19 11:27 04/27/19 11:27 Lab Statement: Any lab studies that have been ordered have been reviewed, and results considered in the medical decision making process. - Radiology CXR Radiology Interpretation Completed By: Radiologist Summary of Radiographic Findings: Findings suggestive of congestive heart failure. ED physician has reviewed this report. - CT CTA Chest/Thorax CT Interpretation Completed By: Radiologist Summary of CT Findings: No evidence of pulmonary embolus. Interstitial edema consistent with CHF. Moderate bilateral pleural effusions are noted. ED physician has reviewed this report. - EKG 1219 Cardiac Rate: NL - 87bpm EKG Rhythm: Sinus Rhythm ST Segment: Normal Ectopy: None Summary of EKG Findings: EKG at 1219 shows NSR at 87bpm with no ST elevations and nml axis. Dr. Yang has reviewed and interpreted this EKG. Course/Dx - Course Assessment/Plan: Pt is a 59 y/o F presenting to the ED with a chief complaint of shortness of breath that she states initially started 3 years ago and has since worsened. She notes she stopped smoking 2 weeks ago, 1 week prior to having her pacemaker placed by Dr. Ordoñez. She also reports a cough. She denies chest pain, fever, or LE edema. Blood work without any significant abnormality except for d-dimer 610, glucose 102, CRP of 24.1, BNP 359. Troponin 0.01. Urinalysis is negative for UTI. Chest x-ray impression, and findings suggestive of congestive heart failure. I decided to do a chest CTA since the patient had a recent placement of pacemaker and she was under general anesthesia. (as per patient). Chest CTA impression: No evidence of pulmonary embolism. Interstitial edema consistent with CHF. Second troponin is 0.01. I discussed all the findings and test results with the patient. Patient was instructed to return to the emergency room immediately if any of the symptoms return or worsen. Plan of care was discussed with the patient and understands and agrees. All questions were answered at patient satisfaction. There were no further complaints or concerns. Lung exam before discharge: CTA B/L. Good air exchange. No wheezing or crackles heard. CVS: S1 and S2 present. No murmurs appreciated. Patient is alert and oriented x 3. Patient is hemodynamically stable. Patient will be discharged home with follow up PCP in the next 2-3 days - Diagnoses Differential Diagnosis/HQI/PQRI: Positive: Asthma, Bronchitis, CHF, COPD Exacerbation, GA Provider Diagnoses: Chronic dyspnea Discharge ED - Sign-Out/Discharge Documenting (check all that apply): Patient Departure - Discharge Plan Condition: Stable Disposition: HOME Patient Education Materials: Dyspnea (ED) Referrals: Criss Lau MD [Primary Care Provider] - Additional Instructions: Please follow up with your primary care provider within the next 1-3 days. Return to the emergency department with any new or worsening symptoms. - Billing Disposition and Condition Condition: STABLE Disposition: Home - Attestation Statements Document Initiated by Scribe: Yes Documenting Scribe: Suzie Jovel Provider For Whom Ramy is Documenting (Include Credential): Bladimir Yang MD. Scribe Attestation: Suzie Kang scribed for Bladimir Yang MD. on 04/27/19 at 2035. Scribe Documentation Reviewed: Yes Provider Attestation: The documentation as recorded by the scribeSuzie accurately reflects the service I personally performed and the decisions made by Bladimir galarza MD. Status of Scribe Document: Viewed
[2019-04-27 11:39] LABS: ABS Basophils 0.1 10^3/ul (0-0.2); ABS Eosinophils 0.3 10^3/ul (0-0.6); ABS Lymphocytes 1.3 10^3/ul (1.0-4.8); ABS Monocytes 0.5 10^3/ul (0-0.8); ABS Neutrophils 3.9 10^3/ul (1.5-7.7); Eosinophil % 4.8 %; Hematocrit 39 % (35-47); Hemoglobin 12.6 g/dL (12.0-16.0); Lymphocyte % 21.2 %; Mean Corpuscular HGB Conc 33 g/dL (31-36); Mean Corpuscular Hemoglobin 26 pg (27-31); Mean Corpuscular Volume 80 fL (80-97); Mean Platelet Volume 8.8 fL (7.4-10.4); Nucleated Red Blood Cells % 0.1; Platelet Count 315 10^3/uL (150-450); Red Blood Count 4.83 10^6 /uL (3.70-4.87); Red Cell Distribution Width 17 % (10-15); White Blood Count 6.1 10^3/uL (3.5-10.8)
[2019-04-27 12:00] LABS: Albumin 3.7 g/dL (3.2-5.2); BUN/Creatinine Ratio 11.6 (8-20); C Reactive Protein 24.11 mg/L (<8.01); Calcium 9.1 mg/dL (8.6-10.3); EGFR African American 105.4 (>60); EGFR Non-African American 87.1 (>60); Globulin 3.6 g/dL (2-4); Potassium 3.7 mmol/L (3.5-5.0); Total Bilirubin 2.1 mg/dL (0.2-1.0); Total Protein 7.3 g/dL (6.4-8.9); Troponin I 0.01 ng/mL (<0.03)
[2019-04-27 12:02] LABS: CKMB ng/mL 0.8 ng/mL (0.6-6.3)
[2019-04-27 12:10] LABS: Urine Appearance Clear; Urine Bilirubin Negative (Negative); Urine Blood 1+ (Negative); Urine Color Straw; Urine Glucose Negative (Negative); Urine Ketones Negative (Negative); Urine Nitrite Negative (Negative); Urine Protein Negative (Negative); Urine Specific Gravity 1.002 (1.010-1.030); Urine Urobilinogen Negative (Negative)
[2019-04-27 12:18] LABS: Urine Bacteria Absent (Absent); Urine Red Blood Cell Trace(0-2/hpf) (Absent); Urine White Blood Cell Absent (Absent)
[2019-04-27] MEDS ORDERED: Iodixanol* (CONTRAST) 320 MG/ML 100 ML SDV IV ONE (12:58)
[2019-04-27] MEDS ORDERED: hydrOXYzine HCL TAB* 25 MG PO ONE (13:03)
[2019-04-27 16:07] VITALS: BP 154/62
== END 2019-04-27 16:33 | disposition home or self-care (01) ==
LOC: ED 10:46
DX: R06.00 Dyspnea, unspecified (principal); R06.02 Shortness of breath; R05 Cough; Z95.0 Presence of cardiac pacemaker; Z79.899 Other long term (current) drug therapy; E11.9 Type 2 diabetes mellitus without complications; I10 Essential (primary) hypertension; E78.00 Pure hypercholesterolemia, unspecified; Z87.891 Personal history of nicotine dependence
CPT/HCPCS: 36415; 71046; 71275; 80053; 81003; 81015; 82553; 83605; 83880; 84484; 85025; 85379; 86140; 93005; 99284; A9270-GY; Q9967

== ENCOUNTER 2019-04-28 06:36 | Emergency (ER) | payer MEDICARE, MEDICAID ==
[2019-04-28 08:00] LABS: ABS Basophils 0.1 10^3/ul (0-0.2); ABS Eosinophils 0.2 10^3/ul (0-0.6); ABS Lymphocytes 1.5 10^3/ul (1.0-4.8); ABS Monocytes 0.5 10^3/ul (0-0.8); ABS Neutrophils 4.7 10^3/ul (1.5-7.7); Eosinophil % 3.5 %; Hematocrit 38 % (35-47); Hemoglobin 12.7 g/dL (12.0-16.0); Lymphocyte % 21.4 %; Mean Corpuscular HGB Conc 34 g/dL (31-36); Mean Corpuscular Hemoglobin 27 pg (27-31); Mean Corpuscular Volume 80 fL (80-97); Mean Platelet Volume 8.9 fL (7.4-10.4); Platelet Count 303 10^3/uL (150-450); Red Blood Count 4.76 10^6 /uL (3.70-4.87); Red Cell Distribution Width 16 % (10-15); White Blood Count 7.1 10^3/uL (3.5-10.8)
[2019-04-28 08:07] LABS: Albumin 3.7 g/dL (3.2-5.2); Albumin/Globulin Ratio 1.1 (1-3); BUN/Creatinine Ratio 11.9 (8-20); Calcium 8.9 mg/dL (8.6-10.3); EGFR Non-African American 90.1 (>60); Globulin 3.3 g/dL (2-4); Potassium 3.6 mmol/L (3.5-5.0)
[2019-04-28] MEDS ORDERED: Furosemide IV* 10 MG/ML VIAL (40 MG) IV SLOW PU ONE (08:08)
[2019-04-28 08:09] LABS: Troponin I 0.01 ng/mL (<0.03)
--- NOTE | 2019-04-28 08:10 | ED ---
Shortness of Breath - HPI Summary HPI Summary: This pt is a 59 Y/O F presenting to [facility] with a CC of SOB that has been present since 04/20/18 that began after receiving a ICD. She states that she was in the ED yesterday and was found to pleural effusions. She states that her SOB is getting worse and she was unable to sleep last night. She states that her symptoms are aggravated while walking around or lying flat. She also states that she has been coughing. She denies any lower extremity edema, CP, headaches , N/V, and sore throat. She states that she has no alleviating factors. She has a PMHx of CHF. Has apt w Dr. Ordoñez at 12:45 today for wound check, follows w Dr. Melchor. - History of Current Complaint Chief Complaint: EDShortnessOfBreath Time Seen by Provider: 04/28/19 06:58 Hx Obtained From: Patient Onset/Duration: Sudden Onset, Lasting Weeks - 1, Still Present, Worse Since - last night Timing: Constant Current Severity: Mild Dyspnea At: Other - ambulation and lying flat Aggravating Factors: Movement, Recumbent Position Alleviating Factors: Nothing Associated Signs & Symptoms: Negative - edema, CP, headaches, N/V, and sore throat, Cough (Nonproductive) Related History: Similar Episode - last night, Dx of pleural effusion - Allergy/Home Medications Allergies/Adverse Reactions: Allergies Allergy/AdvReac Type Severity Reaction Status Date / Time bee venom protein (honey bee) Allergy Mild Edema Verified 04/28/19 06:39 Penicillins Allergy Mild Edema Verified 04/28/19 06:39 losartan Allergy Unknown Unknown Verified 04/28/19 06:39 Reaction Details clindamycin Allergy See Comment Verified 04/28/19 06:39 lisinopril Allergy Unknown Verified 04/28/19 06:39 Reaction Details PMH/Surg Hx/FS Hx/Imm Hx Previously Healthy: Yes Endocrine/Hematology History: Reports: Hx Diabetes - TYPE 2 Cardiovascular History: Reports: Hx Angina, Hx Hypercholesterolemia, Hx Hypertension - ON MEDS, Hx Pacemaker/ICD - placed 04/20/2019 Denies: Hx Myocardial Infarction, Other Cardiovascular Problems/Disorders Respiratory History: Reports: Other Respiratory Problems/Disorders - emphysema Denies: Hx Asthma, Hx Chronic Obstructive Pulmonary Disease (COPD) GI History: Reports: Hx Gastroesophageal Reflux Disease Denies: Other GI Disorders History: Denies: Hx Chronic Renal Failure, Hx Dialysis, Hx Renal Disease Musculoskeletal History: Reports: Hx Arthritis - left wrist, Hx Tendonitis - RIGHT HAND Sensory History: Reports: Hx Contacts or Glasses Denies: Hx Hearing Aid Opthamlomology History: Reports: Hx Contacts or Glasses Neurological History: Reports: Hx Headaches, Hx Migraine Denies: Other Neuro Impairments/Disorders Psychiatric History: Reports: Hx Anxiety, Hx Depression - Cancer History Hx Chemotherapy: No Hx Radiation Therapy: No - Surgical History Surgical History: Yes Surgery Procedure, Year, and Place: RIGHT WRIST, 2010, [facility]. GALLBLADDER, 1985, [facility]. 03/18/12, LEFT ELBOW, [facility]. 06/2016, abdominal surgery, [facility] Hx Anesthesia Reactions: No - Immunization History Immunizations Up to Date: Yes Infectious Disease History: No Infectious Disease History: Denies: Traveled Outside the [place] in Last 30 Days - Family History Known Family History: Negative: Cardiac Disease, Diabetes - Social History Alcohol Use: None Hx Substance Use: No Substance Use Type: Reports: None Substance Use Comment - Amount & Last Used: vape Hx Tobacco Use: Yes - OCCASIONALLY Smoking Status (MU): Light Every Day Tobacco Smoker Type: Cigarettes, eCigarettes Amount Used/How Often: 2-3 CIGS A DAY Have You Smoked in the Last Year: Yes Review of Systems Negative: Fever, Chills Negative: Chest Pain Positive: Shortness Of Breath, Cough Negative: Vomiting, Nausea Negative: Headache All Other Systems Reviewed And Are Negative: Yes Physical Exam - Summary Physical Exam Summary: Constitutional: Well-developed, Well-nourished, Alert. (-) Distressed Skin: Warm, Dry HENT: Normocephalic; Atraumatic Eyes: Conjunctiva normal Neck: Musculoskeletal ROM normal neck. (+) JVD, (-) Stridor, (-) Nuchal rigidity Cardio: Rhythm regular, rate normal, Heart sounds normal; Intact distal pulses; Radial pulses are 2+ and symmetric. (-) Murmur Pulmonary/Chest wall: Tachypneic with bilateral crackles. Pacemaker incision site C/D/I. (-) Respiratory distress, (-) Wheezes, (-) Rales Abd: Soft, (-) tenderness, (-) Distension, (-) Guarding, (-) Rebound Musculoskeletal: (-) Edema Lymph: (-) Cervical adenopathy Neuro: Alert, Oriented x3 Psych: Mood and affect Normal Triage Information Reviewed: Yes Vital Signs On Initial Exam: Initial Vitals Temp Pulse Resp BP Pulse Ox 96.5 F 101 20 126/85 98 04/28/19 06:38 04/28/19 06:38 04/28/19 06:38 04/28/19 06:38 04/28/19 06:38 Vital Signs Reviewed: Yes Procedures - Sedation Patient Received Moderate/Deep Sedation with Procedure: No Diagnostics - Vital Signs Vital Signs Temp Pulse Resp BP Pulse Ox 04/28/19 07:14 86 34 112/69 95 04/28/19 07:00 93 38 94 04/28/19 06:43 100 25 126/85 97 04/28/19 06:38 96.5 F 101 20 126/85 98 - Laboratory Lab Results: Lab Results 04/28/19 Range/Units 07:29 WBC 7.1 (3.5-10.8) 10^3/uL RBC 4.76 (3.70-4.87) 10^6 /uL Hgb 12.7 (12.0-16.0) g/dL Hct 38 (35-47) % MCV 80 (80-97) fL MCH 27 (27-31) pg MCHC 34 (31-36) g/dL RDW 16 H (10-15) % Plt Count 303 (150-450) 10^3/uL MPV 8.9 (7.4-10.4) fL Neut % (Auto) 66.3 % Lymph % (Auto) 21.4 % [place] % (Auto) 7.8 % Eos % (Auto) 3.5 % Baso % (Auto) 1.0 % Absolute Neuts (auto) 4.7 (1.5-7.7) 10^3/ul Absolute Lymphs (auto) 1.5 (1.0-4.8) 10^3/ul Absolute Monos (auto) 0.5 (0-0.8) 10^3/ul Absolute Eos (auto) 0.2 (0-0.6) 10^3/ul Absolute Basos (auto) 0.1 (0-0.2) 10^3/ul Absolute Nucleated RBC 0.0 10^3/ul Nucleated RBC % 0.0 Result Diagrams: 04/28/19 07:29 04/28/19 07:29 Lab Statement: Any lab studies that have been ordered have been reviewed, and results considered in the medical decision making process. - Radiology CXR Radiology Interpretation Completed By: Radiologist Summary of Radiographic Findings: Consistent with pulmonary edema. ED physician has reviewed this report. - EKG 0643 Cardiac Rate: NL - 94 BPM EKG Rhythm: Sinus Rhythm ST Segment: Other Ectopy: None Summary of EKG Findings: An EKG at 0643 reveals normal sinus rhythm 94 BPM, mild ST elevations in leads V2 to V4. No STEMI. No acute changes from EKG on . Dr. Shukla has interpreted this report at 0645 04/28/2019. Course/Dx - Course Course Of Treatment: 59 y/o F w hx CHF, recent pacemaker placement p/w SOB. - labs notable for elevated BNP at 443, higher than prior. Trop neg. CXR w pulm edema and pleural effusions, had CTA yesterday showing similar. - patient on spironolactone, not on lasix. Will give one dose of 40 mg here. Has cardiology apt today at noon for wound check. D/w Dr. Ordoñez who will see her in the office for wound check and can have Dr. Melchor see her for possible medication change. - ambulated in ED with O2 sat 95%. - patient in agreement w plan. - Diagnoses Provider Diagnoses: CHF (congestive heart failure), Pleural effusion, SOB (shortness of breath) - Physician Notifications Discussed Care of Patient With: Steven Ordoñez Time Discussed With Above Provider: 08:35 Instructed by Provider To: Other - Dr. Ordoñez, Drilling Manager, agrees to see the pt after discharge. Discharge ED - Sign-Out/Discharge Documenting (check all that apply): Patient Departure - discharge - Discharge Plan Condition: Stable Disposition: HOME Patient Education Materials: Heart Failure (ED), Pulmonary Edema (ED), Pleural Effusion (ED), Shortness of Breath (ED) Referrals: Steven Ordoñez MD [Medical Doctor] - 04/28/19 12:00 pm Criss Lau MD [Primary Care Provider] - 2 Days Additional Instructions: You were seen in the emergency department for shortness of breath and heart failure. please go to your cardiology appointment today Please follow up with your primary care doctor in next 2-3 days and return to emergency department for trouble breathing, chest pain worsening or concerning symptoms. It was a pleasure taking care of you today. - Billing Disposition and Condition Condition: STABLE Disposition: Home - Attestation Statements Document Initiated by Ramy: Yes Documenting Scribe: Jimmy Suarez Provider For Whom Ramy is Documenting (Include Credential): Kasandra Shukla MD Scribe Attestation: I, Jimmy Suarez, scribed for Kasandra Shukla MD on 04/28/19 at 0906. Scribe Documentation Reviewed: Yes Provider Attestation: The documentation as recorded by the Jimmy lee accurately reflects the service I personally performed and the decisions made by me, Kasandra Shukla MD Status of Scribe Document: Viewed
[2019-04-28] MEDS ORDERED: Furosemide TAB* 40 MG PO ONE (08:12)
[2019-04-28 09:27] VITALS: BP 115/68
== END 2019-04-28 09:25 | disposition home or self-care (01) ==
LOC: ED 06:36
DX: I11.0 Hypertensive heart disease with heart failure (principal); I50.9 Heart failure, unspecified; J90 Pleural effusion, not elsewhere classified; R06.02 Shortness of breath; E11.9 Type 2 diabetes mellitus without complications; E78.00 Pure hypercholesterolemia, unspecified; K21.9 Gastro-esophageal reflux disease without esophagitis; F32.9 Major depressive disorder, single episode, unspecified; Z79.82 Long term (current) use of aspirin; Z95.810 Presence of automatic (implantable) cardiac defibrillator; Z88.0 Allergy status to penicillin; Z88.8 Allergy status to other drugs, medicaments and biological substances; Z88.1 Allergy status to other antibiotic agents; Z91.030 Bee allergy status; F17.210 Nicotine dependence, cigarettes, uncomplicated
CPT/HCPCS: 36415; 71046; 80053; 83880; 84484; 85025; 93005; 99283; A9270-GY

== ENCOUNTER 2019-06-25 22:33 | Emergency (ER) | payer MEDICARE, MEDICAID ==
--- NOTE | 2019-06-25 22:53 | ED ---
Syncope/Near Syncope - HPI Summary HPI Summary: 59 year old F with hx pacemaker/ICD and hx diabetes arriving via ambulance to [facility] after having near syncopal episode at 2130 today 06/25/2019. Patient had been feeling shakey and dizzy all day today. She was at her friend's house tonight sitting in chair. She stood up from the chair to use the bathroom and fell to the floor, landing on her knees and left elbow. She has left elbow pain. No LOC, head trauma, other injuries, chest pain, fever. Her friend called the ambulance. The patient rates the pain 8/10 in severity. Symptoms aggravated by nothing. Symptoms alleviated by nothing. She had pacemaker placed in early Apr of this year because she was having bradycardia. Medications reviewed. Not currently taking medications for her diabetes. Allergies noted. No recent travel hx. - History Of Current Complaint Chief Complaint: EDSyncope Time Seen by Provider: 06/25/19 22:49 Hx Obtained From: Patient Onset/Duration: Lasting Hours - 1.5 Context: Witnessed Associated Head Trauma: No Aggravating Factor(s): Nothing Alleviating Factor(s): Nothing Associated Signs And Symptoms: Negative - LOC, chest pain, fever, Other - left elbow pain, shakiness, dizziness - Allergies/Home Medications Allergies/Adverse Reactions: Allergies Allergy/AdvReac Type Severity Reaction Status Date / Time bee venom protein (honey bee) Allergy Mild Edema Verified 06/25/19 22:47 Penicillins Allergy Mild Edema Verified 06/25/19 22:47 losartan Allergy Unknown Unknown Verified 06/25/19 22:47 Reaction Details clindamycin Allergy See Comment Verified 06/25/19 22:47 lisinopril Allergy Unknown Verified 06/25/19 22:47 Reaction Details Home Medications: Home Medications Gabapentin CAP(*) [Neurontin 100 mg CAP(*)] 100 mg PO BID 07/11/16 [History Confirmed 04/28/19] Latanoprost 0.005%* [Xalatan 0.005%*] 1 drop BOTH EYES QPM 03/29/17 [History Confirmed 04/28/19] Esomeprazole Magnesium [Nexium] 40 mg PO DAILY 02/28/18 [History Confirmed 04/28] Polyethylene Glycol 3350 [Miralax] 17 gm PO DAILY PRN 02/28/18 [History Confirmed 04/28/19] Aspirin EC TAB* [Ecotrin EC Low Dose 81 MG*] 81 mg PO DAILY 12/22/18 [History Confirmed 04/28/19] Citalopram Hydrobromide [Citalopram HBr] 20 mg PO DAILY 12/22/18 [History Confirmed 04/28/19] EPINEPHrine [Epipen] 0.3 mg INJ ONCE PRN 12/22/18 [History Confirmed 04/28/19] Atorvastatin* [Lipitor 40 MG*] 40 mg PO DAILY 03/26/19 [History Confirmed ] Cyanocobalamin TAB* [Vitamin B12 TAB*] 500 mcg PO DAILY 03/26/19 [History Confirmed 04/28/19] Ferrous Gluconate TAB* [Fergon TAB*] 324 mg PO DAILY 03/26/19 [History Confirmed 04/28/19] Spironolactone TAB* [Aldactone TAB 25 MG*] 12.5 mg PO QAM 03/26/19 [History Confirmed 04/28/19] carvediloL [Carvedilol] 6.25 mg PO BID 04/17/19 [History Confirmed 04/28/19] Metformin ER (NF) 500 mg PO DAILY 04/27/19 [History Confirmed 04/28/19] PMH/Surg Hx/FS Hx/Imm Hx Endocrine/Hematology History: Reports: Hx Diabetes - TYPE 2 Cardiovascular History: Reports: Hx Angina, Hx Hypercholesterolemia, Hx Hypertension - ON MEDS, Hx Pacemaker/ICD - placed 04/20/2019 Denies: Hx Myocardial Infarction, Other Cardiovascular Problems/Disorders Respiratory History: Reports: Other Respiratory Problems/Disorders - emphysema Denies: Hx Asthma, Hx Chronic Obstructive Pulmonary Disease (COPD) GI History: Reports: Hx Gastroesophageal Reflux Disease Denies: Other GI Disorders History: Denies: Hx Chronic Renal Failure, Hx Dialysis, Hx Renal Disease Musculoskeletal History: Reports: Hx Arthritis - left wrist, Hx Tendonitis - RIGHT HAND Sensory History: Reports: Hx Contacts or Glasses Denies: Hx Hearing Aid Opthamlomology History: Reports: Hx Contacts or Glasses Neurological History: Reports: Hx Headaches, Hx Migraine Denies: Other Neuro Impairments/Disorders Psychiatric History: Reports: Hx Anxiety, Hx Depression - Cancer History Hx Chemotherapy: No Hx Radiation Therapy: No - Surgical History Surgery Procedure, Year, and Place: RIGHT WRIST, 2010, [facility]. GALLBLADDER, 1984, [facility]. 03/18/12, LEFT ELB[place], [facility] [place], abdominal surgery, [facility] Hx Anesthesia Reactions: No Infectious Disease History: No Infectious Disease History: Denies: Traveled Outside the [place] in Last 30 Days - Family History Known Family History: Negative: Cardiac Disease, Diabetes - Social History Alcohol Use: None Hx Substance Use: No Substance Use Type: Reports: None Substance Use Comment - Amount & Last Used: vape Hx Tobacco Use: Yes - OCCASIONALLY Smoking Status (MU): Light Every Day Tobacco Smoker Type: Cigarettes, eCigarettes Amount Used/How Often: 2-3 CIGS A DAY Have You Smoked in the Last Year: Yes Review of Systems Positive: Other - Shakiness. Negative: Fever Negative: Chest Pain Positive: Other - left elbow pain Neurological/Mental Status: Negative - LOC, Other - Dizziness Positive: Syncope All Other Systems Reviewed And Are Negative: Yes Physical Exam - Summary Physical Exam Summary: Appearance: Well-appearing, Well-nourished, lying in bed comfortably Skin: Warm, dry, no obvious rash Eyes: sclera anicteric, no conjunctival pallor HENT: mucous membranes moist, pharynx appears normal Neck: Supple, nontender Respiratory: Clear to auscultation, no signs of respiratory distress Cardiovascular: Normal S1, S2. No murmurs. Normal distal pulses in tibial and radial bilaterally. Nicely healed L upper chest wound from her ICD implant. Abdomen: Soft, nontender, normal active bowel sounds present Musculoskeletal: Normal, Strength/ROM Intact; Mild diffuse tenderness of left elbow with no restriction of ROM with no swelling or deformity Neurological: A&Ox3, awake and alert, mentation is normal, speech is fluent and appropriate Psychiatric: affect is normal, does not appear anxious or depressed Triage Information Reviewed: Yes Vital Signs On Initial Exam: Initial Vitals Temp Pulse Resp BP Pulse Ox 96.1 F 81 18 99/72 96 06/25/19 22:42 06/25/19 22:42 06/25/19 22:42 06/25/19 22:42 06/25/19 22:42 Vital Signs Reviewed: Yes Procedures - Sedation Patient Received Moderate/Deep Sedation with Procedure: No Diagnostics - Vital Signs Vital Signs Temp Pulse Resp BP Pulse Ox 06/25/19 22:42 96.1 F 81 18 99/72 96 - Laboratory Result Diagrams: 06/25/19 23:09 06/25/19 23:09 Lab Statement: Any lab studies that have been ordered have been reviewed, and results considered in the medical decision making process. - Radiology Left elbow x-ray Radiology Interpretation Completed By: ED Physician - Negative for fracture. Pending official report. 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 ED physician has reviewed and interpreted this EKG. Course/Dx Course Of Treatment: 59 y/o F with hx pacemaker/ICD presents after having near syncopal episode 1.5 hours ago. Patient had been feeling unwell during the day. While standing from sitting in a chair at her friend's house, she fell to the floor and landed on her knees and left elbow. She reports worsening dizziness, shakiness, left elbow pain. No LOC, head trauma, other injuries, chest pain, fever. Her friend called the ambulance. She has a nicely healed L upper chest wound from her ICD implant. She has mild diffuse tenderness of left elbow with no restriction of ROM with no swelling or deformity. Bloodwork results with no significant abnormalities. An EKG shows NSR 78 BPM and an old anterior infarct. Left elbow x-ray is negative for fracture. In the ED course, the patient was given normal saline fluids. The patient feels well after receiving fluids. Patient will be discharged home with follow up from her primary care provider in 3 days. Patient was instructed to return to Emergency Department for new or worsening symptoms. Patient understands and is agreeable to this plan. - Diagnoses Provider Diagnoses: Near syncope, Left elbow contusion Discharge ED - Sign-Out/Discharge Documenting (check all that apply): Patient Departure - Discharge Plan Condition: Good Disposition: HOME Patient Education Materials: Near Syncope (ED) Referrals: Criss Lau MD [Primary Care Provider] - 3 Days - Billing Disposition and Condition Condition: GOOD Disposition: Home - Attestation Statements Document Initiated by Ramy: Yes Documenting Scribe: Sharmin Blandon Provider For Whom Ramy is Documenting (Include Credential): Erwin Dale MD Scribe Attestation: Sharmin Kang, tigistibed for Erwin Dale MD on 06/30/19 at 0604. Scribe Documentation Reviewed: Yes Provider Attestation: The documentation as recorded by the Edson leey Blandon accurately reflects the service I personally performed and the decisions made by me, Erwin Dale MD Status of Scribe Document: Viewed
[2019-06-25] MEDS ORDERED: NS 0.9% 1000 ML** 1,000 ML IV ONE (22:54)
[2019-06-25 23:14] LABS: ABS Basophils 0.1 10^3/ul (0-0.2); ABS Eosinophils 0.5 10^3/ul (0-0.6); ABS Lymphocytes 1.9 10^3/ul (1.0-4.8); ABS Monocytes 0.8 10^3/ul (0-0.8); ABS Neutrophils 4.6 10^3/ul (1.5-7.7); Eosinophil % 6.8 %; Hematocrit 39 % (35-47); Hemoglobin 12.5 g/dL (12.0-16.0); Lymphocyte % 24.1 %; Mean Corpuscular HGB Conc 32 g/dL (31-36); Mean Corpuscular Hemoglobin 26 pg (27-31); Mean Corpuscular Volume 81 fL (80-97); Mean Platelet Volume 9.2 fL (7.4-10.4); Nucleated Red Blood Cells % 0.1; Platelet Count 316 10^3/uL (150-450); Red Blood Count 4.73 10^6 /uL (3.70-4.87); Red Cell Distribution Width 17 % (10-15); White Blood Count 7.9 10^3/uL (3.5-10.8)
--- OUTSIDE RECORDS SUMMARY | 2019-06-25 23:19 | XMS REPORT | Continuity of Care Document ---
:1960 External Reference #:[id number] Author Name Roberta Varner M.D. (transmitted by agent of provider Jackelin Coleman) Address [address] [place] [id number] Care Team Providers Name Role Phone Criss Lau MD - Internal Care Team Information Mingler Operator [phone] Medicine Luda Craig MD - Obstetrics & Care Team Information Mingler Operator [phone] Gynecology carissa-Diana Betancourt M.D. - Single Care Team Information Mingler Operator [phone] [facility] [place] - Mental Care Team Information Mingler Operator [facility] ENT - Clinic/Center Care Team Information Mingler Operator [phone] Roland Rey MD - Care Team Information Mingler Operator [phone] Otolaryngology Brittaney Altamirano O.D. - Tile Layer Care Team Information Mingler Operator [phone] Problems Active Problems Provider Date Type 2 diabetes mellitus Felicity Negrete M.D., FACP Onset: 07/13/2010 Pure hypercholesterolemia Felicity Negrete M.D., FACP Onset: 07/13/2010 Benign essential hypertension Felicity Negrete M.D., FACP Onset: 07/13/2010 Migraine without aura, not refractory Cherelle Francis M.D. Onset: 2014 Cardiomyopathy Danny Melchor M.D., [facility], Onset: 12/30/2018 FASNC Social History Type Date Description Comments Sex Unknown Tobacco Use Start: Unknown Former Cigarette quit in 2013, started End: Unknown Smoker in her teens, never smoked more than 4 cigarettes in a day, usually less. Quit in 2015 (40 yr) ETOH Use Denies alcohol use Tobacco Use Start: Unknown Patient is a former pt was vaping but End: Unknown smoker stop on 04/07/19 Recreational Drug Use Denies Drug Use Smoking Status Reviewed: 06/10/19 Patient is a former pt was vaping but smoker stop on 04/07/19 Exercise Type/Frequency Does not exercise Allergies, Adverse Reactions, Alerts Active Allergies Reaction Severity Comments Date Penicillin swelling 11/02/2009 Bee Sting 11/02/2009 Losartan cough 07/25/2015 Lisinopril cough 07/25/2015 Clindamycin sore throat 04/28/2019 Medications Active Medications SIG Qnty Indications Ordering Provider Date Meloxicam 1 by mouth every 90tabs M18.11 Roberta Varner, 06/10/2019 7.5mg Tablets day as needed M.D. for pain If 1 pill does not work, take 2 pills Lansoprazole 1 by mouth every 90caps K21.9 Criss Lau, 05/28/2019 30mg day M[address]D. Capsules DR Tovar 1 tablet once a 90tabs I42.9 Danny Melchor, 05/12/2019 2mg Tablets day M.D., [facility], FASMT Venlafaxine HCL ER 1 by mouth every 90caps F41.9 Criss Lau, 2019 75mg day M.D. Caps ER 24HR Epipen 2-Clifford use as directed 2units Criss Lau, 01/30/2019 M.DTroy 0.3mg/0.3ML Solution Auto-Inject Aldactone take one half 90tabs I42.9 Danny Melchor, 12/30/2018 25mg Tablets tablet (12.5 mg) M.D., FACC, FASNC per day Atorvastatin Calcium 1 by mouth every 90tabs E78.5 Cameron Rasheed MD 2018 day 40mg Tablets Carvedilol 1 by mouth twice 180tabs I42.9 Criss Lau, 12/24/2018 6.25mg a day M.D. Tablets Aspirin Ec Low Dose Every Day Unknown 12/22/2018 81mg Tablets Ferrous Gluconate take 1 tablet by 30tabs D50.9 Criss Lau, 2018 mouth once daily M.D. 324(38Fe) mg Tablets i Shower Chair For daily use Dx 1units R26.81 Criss Sid, 08/27/2017 r 26.81 M.D. Latanoprost applies one drop Brittaney Altamirano, 03/29/2017 0.005% to both eyes hs O.D. Solution Vitamin B12 1 by mouth every 30tabs R26.81 Criss Sid, 02/11/2017 1000mcg day M.D. Tablets ER Walker 4 wheels, 1units R26.81 Criss Sid, 01/11/2017 [facility] [place] seat and M.D. basket. r26.81 G62.9 Miralax 17 gm every day 510units R10.13 Criss Sid, 11/17/2015 3350NF Powder mixed w/ 8 oz M.D. water/juice as needed Gabapentin take one capsule by 90caps E11.40 Criss Sid, 02/25/2015 100mg mouth two times a M.D. Capsules day History Medications Pantoprazole Sodium 1 po qd 90caps Criss 05/28/2019 - 60mg Tom Lau 05/28/[address] Tovar one a day 30tabs I42.9 Steven DTroy 04/28/2019 - 1mg Tablets Tiago MTroyDTroy 05/12/2019 Clindamycin HCL Three Times 9caps Unknown 04/21/2019 - 300mg Daily 04/27/2019 Capsules Furosemide 1/2 pill by 30tabs I50.22 Cameron Rasheed MD 04/10/2019 - 20mg Tablets mouth every day 05/12/2019 for the next 3 days and then daily twice a week on Mondays and . Spironolactone Every Morning Unknown 03/26/2019 - 25mg 05/12/2019 Tablets Azithromycin two tabs day 6tabs R05 Anni [...] 03/13/2019 Capsules daily as needed for cough Famotidine 1 by mouth 60tabs K21.9 Anni Cadetn, 02/27/2019 - 20mg Tablets twice a day N.P. 04/29/2019 Doxycycline Hyclate 1 tab by mouth 14tabs R05 Criss 01/30/2019 - 100mg twice a day for Tom Lau 02/06/2019 Tablets 7 days Medications Administered in Office Medication SIG Qnty Indications Ordering Provider Date Depomedrol 40MG Roberta Varner M.D. 03/20/2017 Injection Depomedrol 40MG Roberta Varner M.D. 05/21/2016 Injection Depomedrol 80MG Roberta Varner M.D. 07/29/2014 Injection Immunizations CPT Code Status Date Vaccine Lot # [id number] Given 01/17/2018 Influenza Virus Vaccine, Quadrivalent, Split, [id number] Preservative Free 97184 Given 02/16/2016 Influ Virus Vaccine, Quadrivalent, Split Virus, [id number] [address] Given 01/21/2015 Influenza Virus Vaccine, Quadrivalent, Split, [id number] Preservative Free 55847 Given 01/24/2014 Flu Vaccine Split Virus Preservative Free For Indiv 3Yr Older 98805 Given 11/28/2011 Pneumonia Vaccine [id number] Given 03/21/2011 Afluria Vaccine [id number] 27000 Given 12/30/2009 Influenza Virus 3Yrs & Over 70536 Given 02/28/2009 Influenza Virus Vaccine, Pandemic Formulation 78805 Given 02/24/2009 Influenza Virus 3Yrs & Over 47144 Given 02/26/2008 Influenza Virus 3Yrs & Over 95611 Given 02/26/2008 Influenza Virus 3Yrs & Over 70622 Given 03/13/2007 Influenza Virus 3Yrs & Over 01071 Given 03/13/2007 Influenza Virus 3Yrs & Over 92432 Given 02/22/2006 Influenza Virus 3Yrs & Over Vital Signs Date Vital Result Comment 06/10/2019 8:07am Height 63 inches 5'3" Weight 173.50 lb Heart Rate 97 /min BP Systolic 108 mmHg BP Diastolic 62 mmHg Respiratory Rate 18 /min Pain Level 9 O2 % BldC Oximetry 98 % BMI (Body Mass Index) 30.7 kg/m2 05/28/2019 1:07pm Height 63 inches 5'3" Weight 176.00 lb Heart Rate 80 /min BP Systolic 102 mmHg BP Diastolic 68 mmHg O2 % BldC Oximetry 98 % BMI (Body Mass Index) 31.2 kg/m2 Results Test Acquired Date Facility Test Result H/L Range Note Laboratory test 05/28/2019 [facility] House Hemoglobin A1c 6.2 5-7 finding Basic Metabolic 05/23/2019 [facility] Sodium 140 mmol/L Normal 135-145 Panel [address] [place] [address] [phone] Potassium 4.2 mmol/L Normal 3.5-5.0 Chloride 101 mmol/L Normal 101-111 Co2 Carbon Dioxide 29 mmol/L Normal 22-32 Anion Gap 10 mmol/L Normal 2-11 Glucose 103 mg/dL High 70-100 Blood Urea Nitrogen 17 mg/dL Normal 6-24 Creatinine 0.80 mg/dL Normal 0.51-0.95 BUN/Creatinine Ratio 21.3 High 8-20 Calcium 9.7 mg/dL Normal 8.6-10.3 Egfr Non- 73.4 >60 Egfr 88.8 >60 1 Basic Metabolic 05/05/2019 [facility] Sodium 139 mmol/L Normal 135-145 Panel [address] [place] [address] [phone] Potassium 4.2 mmol/L Normal 3.5-5.0 Chloride 101 mmol/L Normal 101-111 Co2 Carbon Dioxide 28 mmol/L Normal 22-32 Anion Gap 10 mmol/L Normal 2-11 Glucose 105 mg/dL High 70-100 Blood Urea Nitrogen 13 mg/dL Normal 6-24 Creatinine 0.72 mg/dL Normal 0.51-0.95 BUN/Creatinine Ratio 18.1 Normal 8-20 Calcium 9.4 mg/dL Normal 8.6-10.3 Egfr Non- 82.9 >60 Egfr 100.3 >60 2 Comp Metabolic 04/28/2019 [facility] Sodium 137 mmol/L Normal 135-145 Panel [address] [place] [address] [phone] Potassium 3.6 mmol/L Normal 3.5-5.0 Chloride 106 mmol/L Normal 101-111 Co2 Carbon Dioxide 22 mmol/L Normal 22-32 Anion Gap 9 mmol/L Normal 2-11 Glucose 107 mg/dL High 70-100 Blood Urea Nitrogen 8 mg/dL Normal 6-24 Creatinine 0.67 mg/dL Normal 0.51-0.95 BUN/Creatinine Ratio 11.9 Normal 8-20 Calcium 8.9 mg/dL Normal 8.6-10.3 Total Protein 7.0 g/dL Normal 6.4-8.9 Albumin 3.7 g/dL Normal 3.2-5.2 Globulin 3.3 g/dL Normal 2-4 Albumin/Globulin Ratio 1.1 Normal 1-3 Total Bilirubin 2.00 mg/dL High 0.2-1.0 Alkaline Phosphatase 116 U/L High 34-104 Alt 10 U/L Normal 7-52 Ast 12 U/L Low 13-39 Egfr Non- 90.1 >60 Egfr 109.0 >60 3 Laboratory test 04/28/2019 [facility] Troponin-I 0.01 <0.03 [address] (TnI) ng/[place] [address] [phone] CBC Auto Diff 04/28/2019 [facility] White Blood 7.1 Normal 3.5 -10.[address] Count 10^3/[place] [address] [phone] Red Blood Count 4.76 10^6/uL Normal 3.70-4.87 Hemoglobin 12.7 g/dL Normal 12.0-16.0 Hematocrit 38 % Normal 35-47 Mean Corpuscular Volume 80 fL Normal 80-97 Mean Corpuscular Hemoglobin 27 pg Normal 27-31 Mean Corpuscular HGB Conc 34 g/dL Normal 31-36 Red Cell Distribution Width 16 % High 10-15 Platelet Count 303 10^3/uL Normal 150-450 Mean Platelet Volume 8.9 fL Normal 7.4-10.4 Abs Neutrophils 4.7 10^3/uL Normal 1.5-7.7 Abs Lymphocytes 1.5 10^3/uL Normal 1.0-4.8 Abs Monocytes 0.5 10^3/uL Normal 0-0.8 Abs Eosinophils 0.2 10^3/uL Normal 0-0.6 Abs Basophils 0.1 10^3/uL Normal 0-0.2 Abs Nucleated RBC 0.0 10^3/uL Granulocyte % 66.3 % Lymphocyte % 21.4 % Monocyte % 7.8 % Eosinophil % 3.5 % Basophil % 1.0 % Nucleated Red Blood Cells % 0.0 Laboratory 04/28/2019 [facility] B-Type 443 pg/mL High <=100 test finding [address] [place] [address] Peptide BNP [phone] Laboratory 04/27/2019 [facility] D Dimer 610 ng/mL High Less 5 test finding [address] Quantitative Than 230 [place] [address] [phone] CKMB 04/27/2019 [facility] CKMB ng/mL 0.8 ng/mL Normal 0.6- 6.[address] [place] [address] [phone] Laboratory 04/27/2019 [facility] C Reactive 24.11 High <8.01 test finding [address] Protein mg/[place] [address] [phone] Comp Metabolic 04/27/2019 [facility] Sodium 140 Normal 135- [address] mmol/[place] [address] [phone] Potassium 3.7 mmol/L Normal 3.5-5.0 Chloride 105 mmol/L Normal 101-111 Co2 Carbon Dioxide 26 mmol/L Normal 22-32 Anion Gap 9 mmol/L Normal 2-11 Glucose 102 mg/dL High 70-100 Blood Urea Nitrogen 8 mg/dL Normal 6-24 Creatinine 0.69 mg/dL Normal 0.51-0.95 BUN/Creatinine Ratio 11.6 Normal 8-20 Calcium 9.1 mg/dL Normal 8.6-10.3 Total Protein 7.3 g/dL Normal 6.4-8.9 Albumin 3.7 g/dL Normal 3.2-5.2 Globulin 3.6 g/dL Normal 2-4 Albumin/Globulin Ratio 1.0 Normal 1-3 Total Bilirubin 2.10 mg/dL High 0.2-1.0 Alkaline Phosphatase 126 U/L High 34-104 Alt 13 U/L Normal 7-52 Ast 15 U/L Normal 13-39 Egfr Non- 87.1 >60 Egfr 105.4 >60 6 Laboratory test 04/27/2019 [facility] Lactic Acid 0.9 mmol/L Normal 0.5-2.0 [address] [place] [address] [phone] B-Type Natriuretic Peptide BNP 359 pg/mL High <=100 Troponin-I (TnI) 0.01 ng/mL <0.03 8 Urinalysis Profile 04/27/2019 [facility] Urine Color Straw [address] [place] [address] [phone] Urine Appearance Clear Urine Specific Marion 1.002 Low 1.010-1.030 Urine pH 6.0 Normal 5-9 Urine Urobilinogen Negative Negative Urine Ketones Negative Negative Urine Protein Negative Negative Urine Leukocytes Negative Negative Urine Blood 1+ Abnormal Negative Urine Nitrite Negative Negative Urine Bilirubin Negative Negative Urine Glucose Negative Negative Urine White Blood Cell Absent Absent Urine Red Blood Cell Trace(0-2/hpf) Absent Urine Bacteria Absent Absent CBC Auto 04/27/2019 [facility] White Blood 6.1 10^3/uL Normal 3.5-10.[address] [place] [address] [phone] Red Blood Count 4.83 10^6/uL Normal 3.70-4.87 Hemoglobin 12.6 g/dL Normal 12.0-16.0 Hematocrit 39 % Normal 35-47 Mean Corpuscular Volume 80 fL Normal 80-97 Mean Corpuscular Hemoglobin 26 pg Low 27-31 Mean Corpuscular HGB Conc 33 g/dL Normal 31-36 Red Cell Distribution Width 17 % High 10-15 Platelet Count 315 10^3/uL Normal 150-450 Mean Platelet Volume 8.8 fL Normal 7.4-10.4 Abs Neutrophils 3.9 10^3/uL Normal 1.5-7.7 Abs Lymphocytes 1.3 10^3/uL Normal 1.0-4.8 Abs Monocytes 0.5 10^3/uL Normal 0-0.8 Abs Eosinophils 0.3 10^3/uL Normal 0-0.6 Abs Basophils 0.1 10^3/uL Normal 0-0.2 Abs Nucleated RBC 0.0 10^3/uL Granulocyte % 64.4 % Lymphocyte % 21.2 % Monocyte % 8.4 % Eosinophil % 4.8 % Basophil % 1.2 % Nucleated Red Blood Cells % 0.1 Laboratory 04/27/2019 [facility] Troponin-I 0.01 ng/mL <0.[address] (TnI) [place] [address] [phone] Pre Cath Panel 04/16/2019 [facility] Partial 37.2 Normal 26.0- 38. [address] DR[address] Thrombo Time seconds 0 [place] [address] PTT [phone] CBC Auto Diff 04/16/2019 [facility] White Blood 7.6 Normal 3.5 -10.[address] Count 10^3/[place] [address] [phone] Red Blood Count 5.14 10^6/uL High 3.70-4.87 Hemoglobin 13.7 g/dL Normal 12.0-16.0 Hematocrit 42 % Normal 35-47 Mean Corpuscular Volume 81 fL Normal 80-97 Mean Corpuscular Hemoglobin 27 pg Normal 27-31 Mean Corpuscular HGB Conc 33 g/dL Normal 31-36 Red Cell Distribution Width 16 % High 10-15 Platelet Count 342 10^3/uL Normal 150-450 Mean Platelet Volume 9.0 fL Normal 7.4-10.4 Abs Neutrophils 5.1 10^3/uL Normal 1.5-7.7 Abs Lymphocytes 1.6 10^3/uL Normal 1.0-4.8 Abs Monocytes 0.7 10^3/uL Normal 0-0.8 Abs Eosinophils 0.2 10^3/uL Normal 0-0.6 Abs Basophils 0.1 10^3/uL Normal 0-0.2 Abs Nucleated RBC 0.0 10^3/uL Granulocyte % 67.0 % Lymphocyte % 20.4 % Monocyte % 8.7 % Eosinophil % 3.1 % Basophil % 0.8 % Nucleated Red Blood Cells % 0.2 Inr/Protime 04/16/2019 [facility] Inr 1.03 Normal 0.82-1.[address] [place] [address] [phone] Basic Metabolic 04/16/2019 [facility] Sodium 140 mmol/L Normal 135-[address] [place] [address] [phone] Potassium 4.3 mmol/L Normal 3.5-5.0 Chloride 104 mmol/L Normal 101-111 Co2 Carbon Dioxide 25 mmol/L Normal 22-32 Anion Gap 11 mmol/L Normal 2-11 Glucose 94 mg/dL Normal 70-100 Blood Urea Nitrogen 10 mg/dL Normal 6-24 Creatinine 0.67 mg/dL Normal 0.51-0.95 BUN/Creatinine Ratio 14.9 Normal 8-20 Calcium 9.8 mg/dL Normal 8.6-10.3 Egfr Non- 90.1 >60 Egfr 109.0 >60 12 Urine Culture And 04/03/2019 [facility] Urine Culture SEE RESULT [address] [place] [address] [phone] Urine Drug SCR ED 04/03/2019 [facility] Urine None None [facility] [address] [place] [address] Screen [phone] Urine Barbiturates Screen None Detected None Detect Urine Benzodiazepine Screen None Detected None Detect Urine Cannabinoids Screen None Detected None Detect Urine Cocaine Screen None Detected None Detect Urine Opiates Screen None Detected None Detect Urine Phencyclidine Screen None Detected None Detect 14 Urinalysis Profile 04/03/2019 [facility] Urine Color Yellow [address] [place], [place] [id number] [phone] Urine Appearance Clear Urine Specific Marion 1.002 Low 1.010-1.030 Urine pH 6.0 Normal [...] Urine Squamous Epithelial Cell Present Abnormal Absent CBC Auto 04/03/2019 [facility] White Blood 8.2 10^3/uL Normal 3.5-10.[address] [place] [address] [phone] Red Blood Count 5.45 10^6/uL High 3.70-4.87 [...] Red Blood Cells % 0.1 Comp Metabolic 04/03/2019 [facility] Sodium 138 mmol/L Normal 135-[address] [place] [address] [phone] Potassium 3.7 mmol/L Normal 3.5-5.0 Chloride 106 [...] Egfr Non- 84.6 >60 Egfr 102.3 >60 15 Laboratory test 04/03/2019 [facility] Acetaminophen < 15 g/mL [address] [place] [address] [phone] Alcohol < 10 mg/dL Normal <10 Salicylate < 2.50 mg/dL <30 Laboratory 03/26/2019 [facility] Troponin-I 0.01 ng/mL <0.03 17 test finding [address] (TnI) [place] [address] [phone] Inr/Protime 03/26/2019 [facility] Inr 1.03 Normal 0.82-1.[address] [place] [address] [phone] Laboratory 03/26/2019 [facility] Partial 40.3 High 26.0-38. test finding [address] Thrombo Time seconds 0 [place] [address] PTT [phone] CBC Auto Diff 03/26/2019 [facility] White Blood 6.5 Normal 3.5 -10.[address] Count 10^3/[place] [address] [phone] Red Blood Count 5.28 10^6/uL High 3.70-4.87 [...] % Nucleated Red Blood Cells % 0.0 Basic Metabolic 03/26/2019 [facility] Sodium 140 mmol/L Normal 135-[address] [place] [address] [phone] Potassium 4.1 mmol/L Normal 3.5-5.0 Chloride 105 mmol/L Normal 101-111 Co2 Carbon Dioxide 26 mmol/L Normal 22-32 Anion Gap 9 mmol/L Normal 2-11 Glucose 95 mg/dL Normal 70-100 Blood Urea Nitrogen 13 mg/dL Normal 6-24 Creatinine 0.74 mg/dL Normal 0.51-0.95 BUN/Creatinine Ratio 17.6 Normal 8-20 Calcium 9.6 mg/dL Normal 8.6-10.3 Egfr Non- 80.6 >60 Egfr 97.5 >60 19 Laboratory test 03/26/2019 [facility] Troponin-I (TnI) 0.01 ng/ mL <0.03 [address] [place] [address] [phone] B-Type Natriuretic Peptide BNP 183 pg/mL High <=100 Laboratory test 01/28/2019 [facility] Troponin-I 0.03 ng/mL < 0.04 21 finding [address] (TnI) [place] [address] [phone] Comp Metabolic 01/28/2019 [facility] Sodium 133 mmol/L Low 135 -[address] [place] [address] [phone] Potassium 4.4 mmol/L Normal 3.5-5.0 Chloride 102 [...] Egfr Non- 70.6 >60 Egfr 85.4 >60 22 Laboratory 01/28/2019 [facility] Troponin-I 0.02 <0.04 23 test finding [address] (TnI) ng/[place] [address] [phone] CBC Auto Diff 01/28/2019 [facility] White Blood 9.7 Normal 3.5 -10.[address] Count 10^3/[place] [address] [phone] Red Blood Count 5.32 10^6/uL High 3.70-4.87 [...] Blood Cells % 0.1 Laboratory test 01/28/2019 [facility] B-Type 179 pg/mL High <= [address] [place] [address] Peptide BNP [phone] Laboratory test 01/09/2019 [facility] GGTP 13 U/L Normal 9- 64.[address] [place] [address] [phone] Liver Function 01/09/2019 [facility] Total Protein 7.1 g/dL Normal 6.4-8.[address] [place] [address] [phone] Albumin 3.9 g/dL Normal 3.2-5.2 Globulin 3.2 g/dL Normal 2-4 Albumin/Globulin Ratio 1.2 Normal 1-3 Total Bilirubin 1.20 mg/dL High 0.2-1.0 Direct Bilirubin 0.20 mg/dL High 0.03-0.18 Indirect Bilirubin 1.0 mg/dL Normal 0.3-1.0 Alkaline Phosphatase 129 U/L High 34-104 Alt 12 U/L Normal 7-52 Ast 12 U/L Low 13-39 Laboratory test 01/09/2019 [facility] C Reactive 5.85 mg/L Normal <8.[address] [place] [address] [phone] CBC Auto Diff 01/09/2019 [facility] White Blood 6.5 Normal 3.5 -10.[address] Count 10^3/[place] [address] [phone] Red Blood Count 4.84 10^6/uL Normal 3.70-4.87 [...] Blood Cells % 0.0 Laboratory test 12/26/2018 [facility] Lactic Acid 0.9 mmol/L Normal 0.5-2.0 [address] [place] [address] [phone] CBC Auto Diff 12/26/2018 [facility] White Blood 7.8 Normal 3.5 -10.[address] Count 10^3/uL [place], [place] [address] [phone] Red Blood Count 4.82 10^6/uL Normal 3.70-4.87 [...] Blood Cells % 0.1 Comp Metabolic 12/26/2018 [facility] Sodium 138 mmol/L Normal 135-[address] [place] [address] [phone] Potassium 3.7 mmol/L Normal 3.5-5.0 Chloride 106 [...] Egfr Non- 97.1 >60 Egfr 117.4 >60 25 Laboratory test 12/26/2018 [facility] Troponin-I (TnI) 0.02 ng/ mL <0.04 26 finding [address] [place] [address] [phone] 1 Because ethnic data is not always [...] 5 Kidney failure <15 (or dialysis) 2 Because ethnic data is not always [...] 5 Kidney failure <15 (or dialysis) 3 Because ethnic data is not always [...] 5 Kidney failure <15 (or dialysis) 4 Troponin-I testing on Plasma Separator Tubes (PST) has a known false positive rate of 0.20-0.40%. All positive troponins reflex immediately to secondary confirmatory testing. Using the Light Ext[employer] Access Immunoassay systems, the 99th percentile upper reference limit was demonstrated to be < 0.03 ng/mL. 5 Please note: The following may produce a false positive D Dimer test: - Rheumatoid factor greater than 60 IU/ml - Plasma hemoglobin greater than 0.05 gm/dl - Bilirubin greater than 50 mg/dl - Lipids greater than 1000 mg/dl - FDP greater than 20 ug/ml 6 Because ethnic data is not always [...] 5 Kidney failure <15 (or dialysis) 7 [facility] Severe Sepsis and Septic Shock Management Bundle Measure requires all lactic acids initially measuring >2.0 mmol/L be repeated. 8 Troponin-I testing on Plasma Separator Tubes (PST) has a known false positive rate of 0.20-0.40%. All positive troponins reflex immediately to secondary confirmatory testing. Using the [employer]-2-1 DxI 800 Access Immunoassay systems, the 99th [...] demonstrated to be < 0.03 ng/mL. 10 soon 11 Standard intensity warfarin therapeutic range: 2.0-3.0 High intensity warfarin therapeutic range: 2.5-3.5 12 Because ethnic data is not always [...] 5 Kidney failure <15 (or dialysis) 13 SEE RESULT BELOW Name: ODESSA ELIAS : [address]: Js Bradshaw MD Acct: [id number] Unit: [id number] AGE: 58 Location: ED Re04/03/19 SEX: F Status: DEP ER SPEC: [id number] ENRIQUE: 04/03/19-[address] [facility] [address]: Js Bradshaw MD REQ: [id number] RECD: 04/03/19-1321 STATUS: COMP [facility] DR: Criss Lau MD _ SOURCE: URINE SPDESC: ORDERED: Urine Culture Procedure Result Reported Site Urine Culture Final 04/04/19- 1007 ML Few Enterobacteriacae; possible contamination. * [facility] - Main Lab . END OF REPORT DEPARTMENT OF PATHOLOGY, [address] [place] [address] Roddy Villanueva M.D. Director [facility] # [id number] 14 The urine specimen was tested at the listed cutoffs: Drug class test level (ng/mL) Amphetamines 500 Barbiturates 200 Benzodiazepine metabolites 200 Cocaine metabolites 150 Cannabinoids 50 Opiates 300 Pcp 25 Specimen was received without chain of custody. Results should be used for medical purposes only. 15 Because ethnic data is not always [...] Kidney failure <15 (or dialysis) 16 Therapeutic concentration: <50 ug/mL Toxic concentration: >120 ug/mL 17 Troponin-I testing on Plasma Separator Tubes (PST) has a known false positive rate of 0.20-0.40%. All positive troponins reflex immediately to secondary confirmatory testing. Using the [employer] DxI 800 Access Immunoassay systems, the 99th percentile upper reference limit was demonstrated to be < 0.03 ng/mL. 18 Standard intensity warfarin therapeutic range: 2.0-3.0 High intensity warfarin therapeutic range: 2.5-3.5 19 Because ethnic data is not always readily [...] 15-29 5 Kidney failure <15 (or dialysis) 20 Troponin-I testing on Plasma Separator Tubes (PST) has a known false positive rate of 0.20-0.40%. All positive troponins reflex immediately to secondary confirmatory testing. Using the [employer] DxI 800 Access Immunoassay systems, the 99th percentile upper reference limit was demonstrated to be < 0.03 ng/mL. 21 Troponin-I testing on Plasma Separator Tubes (PST) has a known false positive rate of 0.20-0.40%. All positive troponins reflex immediately to secondary confirmatory testing. Using the [employer] DxI 800 Access Immunoassay systems, the 99th percentile upper reference limit was demonstrated to be < 0.03 ng/mL. 22 Because ethnic data is not always readily [...] 15-29 5 Kidney failure <15 (or dialysis) 23 Troponin-I testing on Plasma Separator Tubes (PST) has a known false positive rate of 0.20-0.40%. All positive troponins reflex immediately to secondary confirmatory testing. Using the Un[employer] DxI 800 Access Immunoassay systems, the 99th percentile upper reference limit was demonstrated to be < 0.03 ng/mL. 24 [facility] Severe Sepsis and Septic Shock Management Bundle Measure requires all lactic acids initially measuring >2.0 mmol/L be repeated. 25 Because ethnic data is not always readily [...] 15-29 5 Kidney failure <15 (or dialysis) 26 Troponin-I testing on Plasma Separator Tubes (PST) has a known false positive rate of 0.20-0.40%. All positive troponins reflex immediately to secondary confirmatory testing. Using the Light Extraction Access Immunoassay systems, the 99th percentile upper reference limit was demonstrated to be < 0.03 ng/mL. Procedures Date Code Description Status 05/29/2019 32221 Interrogation Implant Cardiovasc Monitor System Incl Completed Analysis Int 05/29/2019 79950 Interrogation Implant Cardiovasc Monitor System Incl Completed Analysis Int 05/29/2019 70971 Icd eval w/iterative adjment single lead Icd Completed 05/29/2019 10127 Icd eval w/iterative adjment single lead Icd Completed 05/12/2019 58028 EKG Tracing & Interpretation Completed 04/20/2019 64742 Insert/Replace Icd W/Generator Completed 03/17/2019 07649 ECHO Transthoracic, Real-Time 2D With Doppler And Completed Color Flow 03/17/2019 30465 ECHO Transthoracic, Real-Time 2D With Doppler And Completed Color Flow 12/30/2018 65839 EKG Tracing & Interpretation Completed 12/26/2018 16157 EKG Tracing & Interpretation Completed 09/26/2018 [id number] Diabetic Retinal Eye Exam Completed 08/01/2018 [id number] Mammogram Completed 03/11/2018 82952888 Colonoscopy Completed 09/26/2017 619166267 Diabetic Retinal Eye Exam Completed 03/15/2017 544249465 Diabetic Retinal Eye Exam Completed 12/07/2016 59137782 Mammogram Completed 09/07/2016 654388964 Diabetic Retinal Eye Exam Completed 12/02/2015 40591806 Mammogram Completed 11/19/2014 56026178 Mammogram Completed 06/28/2014 204802868 Diabetic Retinal Eye Exam Completed 11/20/2013 [id number] Mammogram Completed 09/09/2013 066253054 Diabetic Retinal Eye Exam Completed 11/13/2012 90066734 Mammogram Completed 08/20/2012 955804942 Diabetic Retinal Eye Exam Completed 05/15/2012 19071725 Mammogram Completed 12/26/2011 26093159 Mammogram Completed 12/13/2011 13043235 Mammogram Completed 08/31/2010 03162864 Colonoscopy Completed 11/13/2007 [id number] Mammogram Completed 05/14/2007 54547205 Mammogram Completed 10/18/2006 77587927 Mammogram Completed 05/07/2003 47115187 Mammogram Completed Medical Devices Description No Information Available Encounters Type Date Location Provider Dx Diagnosis Office Visit 06/10/2019 [facility] Roberta M18.11 Unil primary 8:15a at Kingsley Varner M.D. osteoarth of first carpometacarp joint, r hand G56.01 Carpal tunnel syndrome, right upper limb G56.21 Lesion of ulnar nerve, right upper limb Office Visit 05/12/2019 2:15p Adinwilian Boyle I42.9 Cardiomyopathy, Cardiology Of Tom Melchor, unspecified [facility] FACC, FASNC R94.31 Abnormal electrocardiogram [ECG] [EKG] Office Visit 04/30/2019 10:40a [facility] Internal Criss F41.9 Anxiety disorder, Medicine - Cheryl Lau M.D. unspecified Office Visit 04/28/2019 1:00p [facility] Steven Delgado I42.9 Cardiomyopathy, Of [facility] AT [facility] Tom Ordoñez unspecified Z95.810 Presence of automatic (implantable) cardiac defibrillator I50.9 Heart failure, unspecified Office Visit 04/07/2019 [facility] Steven Delgado I42.9 Cardiomyopathy, 11:30a Cardiology Shasta Ordoñez M.D. unspecified [facility] R94.31 Abnormal electrocardiogram [ECG] [EKG] Office Visit 03/25/2019 [facility] Danny Boyle I42.9 Cardiomyopathy, 10:15a Cardiology Of Tom Melchor, unspecified [facility] FACC, FASNC Office Visit 02/27/2019 [facility] Internal Anni Vieira R05 Cough 3:[facility]p [facility] K21.9 Gastro-esophageal reflux disease without esophagitis Office Visit 02/06/2019 3:40p [facility] Internal Milla Calero MD J06.9 Acute [facility], unspecified Office Visit 01/30/2019 2:00p [facility] Internal Criss R05 Cough Medicine - Cheryl Lau M.D. Office Visit 12/30/2018 1:15p [facility] Danny Boyle I42.9 Cardiomyopathy, Of Marty Melchor M.D., unspecified FACGail, [facility] I77.810 Thoracic aortic ectasia R94.31 Abnormal electrocardiogram [ECG] [EKG] Office Visit 12/26/2018 2:00p [facility] Internal Criss R07.9 Chest pain, Medicine - Tom Lau unspecified Cheryl I45.4 Nonspecific intraventricular block I49.9 Cardiac arrhythmia, unspecified Assessments Date Code Description Provider 06/10/2019 M18.11 Unilateral primary osteoarthritis of Roberta Varner M.D. first carpometacarpal joint, right hand 06/10/2019 G56.01 Carpal tunnel syndrome, right upper Roberta Varner M.D. limb 06/10/2019 G56.21 Lesion of ulnar nerve, right upper Roberta Varner M.D. limb 05/29/2019 I42.9 Cardiomyopathy, unspecified Danny Melchor M.D., FACC, [facility] 05/29/2019 I42.9 Cardiomyopathy, unspecified Ica Pacer Schedule 05/29/2019 I50.9 Heart failure, unspecified Dannyjoon Melchor M.D., FACC, [facility] 05/29/2019 I50.9 Heart failure, unspecified Ica Pacer Schedule 05/29/2019 Z95.810 Presence of automatic (implantable) Danny Melchor M.D., FACC, cardiac defibrillator [facility] 05/29/2019 Z95.810 Presence of automatic (implantable) Ica Pacer Schedule cardiac defibrillator 05/28/2019 Z00.00 Encounter for general adult medical Criss Lau M.D. examination without abnormal findings 05/28/2019 E11.9 Type 2 diabetes mellitus without Criss Lau M.D. complications 05/28/2019 F41.9 Anxiety disorder, unspecified Criss Lau M.D. 05/28/2019 I42.9 Cardiomyopathy, unspecified Criss Lau M.D. 05/28/2019 K21.9 Gastro-esophageal reflux disease Criss Lau M.D. without esophagitis 05/12/2019 I42.9 Cardiomyopathy, unspecified Danny Melchor M.D., FACC, [facility] 05/12/2019 R94.31 Abnormal electrocardiogram [ECG] Danny Melchor M.D., [facility], [EKG] [facility] 04/30/2019 F41.9 Anxiety disorder, unspecified Criss Lau M.D. 04/28/2019 I42.9 Cardiomyopathy, unspecified Steven Ordoñez M.D. 04/28/2019 Z95.810 Cardiac pacemaker in situ Steven Ordoñez M.D. 04/28/2019 I50.9 Heart failure, unspecified Steven Ordoñez M.D. 04/20/2019 I42.9 Cardiomyopathy, unspecified Steven Ordoñez M.D. 04/10/2019 I42.9 Cardiomyopathy, unspecified Cameron Rasheed MD 04/10/2019 R07.9 Chest pain, unspecified Cameron Rasheed MD 04/10/2019 R05 Cough Cameron Rasheed MD 04/10/2019 I50.22 Chronic systolic (congestive) heart Cameron Rasheed MD failure 04/10/2019 F17.201 Nicotine dependence, unspecified, in Cameron Rasheed MD remission 04/10/2019 I45.4 Nonspecific intraventricular block Cameron Rasheed MD 04/07/2019 I42.9 Cardiomyopathy, unspecified Steven Ordoñez M.D. 04/07/2019 R94.31 Abnormal electrocardiogram [ECG] Steven Ordoñez M.D. [EKG] 03/25/2019 I42.9 Cardiomyopathy, unspecified Danny Melchor M.D., [facility], [facility] 03/17/2019 I42.9 Cardiomyopathy, unspecified Danny Melchor M.D., [facility], [facility] 03/17/2019 I42.9 Cardiomyopathy, unspecified Traveling ECHO 1 02/27/2019 R05 Cough Anni Vieira, N.P. 02/27/2019 K21.9 Gastro-esophageal reflux disease Anni Vieira, N.P. without esophagitis 02/06/2019 J06.9 Acute upper respiratory infection, Milla Calero MD unspecified 01/30/2019 R05 Cough Criss Lau M.D. 12/30/2018 I42.9 Cardiomyopathy, unspecified Danny Melchor M.D., [facility], [facility] 12/30/2018 I77.810 Thoracic aortic ectasia Danny Melchor M.D., [facility], [facility] 12/30/2018 R94.31 Abnormal electrocardiogram [ECG] Danny Melchor M.D., [facility], [EKG] [facility] 12/26/2018 R07.9 Chest pain, unspecified Criss Lau M.D. 12/26/2018 I45.4 Nonspecific intraventricular block Criss Lau M.D. 12/26/2018 I49.9 Cardiac arrhythmia, unspecified Criss Lau M.D. Plan of Treatment Future Appointment(s):11/26/2019 10:20 am - Criss Lau M.D. at [facility] Internal Medicine - [facility]07/17/2019 1:00 pm - Danny Melchor M.D., [facility], [facility] at [facility]09/04/2019 9:45 am - Donald Alvarado M.D. at [facility]/10/2019 - Cameron Rasheed MDI42.9 Cardiomyopathy, varxijfjseoB56.9 Chest pain, ucfudplkguqG06 RlrhtX39.22 Chronic systolic ( congestive) heart failureNew Medication:Furosemide 20 mg - 1/2 pill by mouth every day for the next 3 days and then daily twice a week on Mondays and .Comments:We are starting a water pill. Take three days in a row and then twice a week thereafter. Record yourweight in a log book each day using the same amount of clothing and at the same time of day. Call usor Dr. Melchor if your weight goes up more than 3 lbs in one day or 5 lbs in one week. Your symptoms are consistent with congestive heart failure. You MUST stop vaping! F17.201 Nicotine dependence, unspecified, in uplwctmzzZ37.4 Nonspecific intraventricular block Functional Status Description No Information Available Mental Status Description No Information Available Referrals Refer to Reason for Referral Status Appt Date Steven Ordoñez MD Dear Dr. Ordoñez, pt has persistent severe Sent non-ischemic CMP. Please evaluate Ms. Elias for ICD for primary prophylaxis for SCD. [facility] [place] [address] [phone]
--- OUTSIDE RECORDS SUMMARY | 2019-06-25 23:19 | XMS REPORT ---
:1960 Author Organization [facility] Care Team Providers Name Role Phone Yulissa [...] Code Name UID Location SNOMED-CT () 2019-01-09 completed [address], [id number] Psychother [id number] SNOMED-CT () 2019-02-03 completed Mental apy, 45 4 Health- minutes [place] with [address], [id number] Psychother 2278113 SNOMED-CT () 2019-03-17 completed Mental apy, 45 4 Health- minutes [place] with [address], [id number] SNOMED-CT () 2019-04-03 completed [facility], [id number] Psychother 3496534 SNOMED-CT () 2019-04-14 completed Mental apy, 45 4 Health- minutes [place] with [address], [id number] SNOMED-CT () 2019-03-05 completed Mental Health- [address], [id number] Psychother 4565668 SNOMED-CT () 2019-05-06 completed Mental apy, 45 4 Health- minutes [place] with [address], [id number] Psychother 0361052 SNOMED-CT () 2019-06-04 completed Mental apy, 45 4 Health- minutes [place] with [facility] patient [address] [place], [place], [id number] [phone] Encounters/Encounter Diagnoses Encounter Name Encounter Diagnosis Diagnosis Diagnosis Date of Service Code Code Name CodeSystem Diagnosis Delivery Location Psychotherapy - 64612 SNOMED-CT 2019-06-15 Behavioral Individual [facility] , , , Vital Signs No Information Social History Element Description Description Start End Code CodeSystem AdditionalInfo Date Date SexAssignedAtBirth Female 1959-04 F AdministrativeGender 06-10 Hospital Discharge Instructions Reason For Referral Medical Equipment FDA Assessments
--- OUTSIDE RECORDS SUMMARY | 2019-06-25 23:20 | XMS REPORT | Continuity of Care Document ---
:1960 External Reference #:[id number] Author Name Criss Lau M.D. (transmitted by agent of provider Gladys Don) Address [address] [facility], [place] [address] Care Team Providers Name Role Phone Criss Lau MD - Internal Care Team Information Chronograph Operator Medicine Luda Craig MD - Obstetrics & Care Team Information Chronograph Operator Gynecology carissa-Diana Betancourt M.D. - Single Care Team Information Chronograph Operator [phone] [facility] - Mental Care Team Information Chronograph Operator [facility] - Clinic/Center Care Team Information Chronograph Operator [phone] Roland Rey MD - Care Team Information Chronograph Operator [phone] Otolaryngology Brittaney Altamirano O.D. - Artist'S Manager Care Team Information Chronograph Operator [phone] Problems Active Problems Provider Date Type 2 diabetes mellitus Felicity Negrete M.D., FACP Onset: 07/13/2010 Pure hypercholesterolemia Felicity Negrete M.D., FACP Onset: 07/13/2010 Benign essential hypertension Felicity Negrete M.D., FACP Onset: 07/13/2010 Migraine without aura, not refractory Cherelle Francis M.D. Onset: 2014 Cardiomyopathy Danny Melchor M.D., [facility], Onset: 12/30/2018 FASNC Social History Type Date [...] Use Denies Drug Use Smoking Status Reviewed: 05/28/19 Patient is a former pt was vaping but smoker stop on 04/07/19 Exercise Type/Frequency Does not exercise Allergies, Adverse Reactions, Alerts Active Allergies Reaction Severity Comments Date Penicillin swelling 11/02/2009 Bee Sting 11/02/2009 Losartan cough 07/25/2015 Lisinopril cough 07/25/2015 Clindamycin sore throat 04/28/2019 Medications Active Medications SIG Qnty Indications Ordering Provider Date Lansoprazole 1 by mouth every 90caps K21.9 Criss Lau, 05/28/2019 30mg day M.D. Capsules Bumetanide 1 tablet once a 90tabs I42.9 Danny Meclhor, 05/12/2019 2mg Tablets day M.D., FACC, FASNC Venlafaxine HCL ER 1 by mouth every [...] Criss Lau, 08/27/2017 r 26.81 M.D. Latanoprost applies one drop Brittaney Altamirano, 03/29/2017 0.005% to both eyes hs O.D. Solution Vitamin B12 1 by mouth every 30tabs R26.81 [facility], 02/11/2017 1000mcg day M.D. Tablets ER Walker 4 wheels, 1units R26.81 Criss Sid, 01/11/2017 [facility] brakes, seat and M.D. basket. r26.81 G62.9 Miralax 17 gm every day 510units R10.13 [facility] Sid, 11/17/2015 3350NF Powder mixed w/ 8 oz M.D. water/juice as needed Gabapentin take one capsule by 90caps E11.40 Criss Sid, 02/25/2015 100mg mouth two times a M.D. Capsules day History Medications Pantoprazole Sodium 1 po qd 90caps Criss 05/28/2019 - 60mg Glenis LauDTroy 05/28/[address] Tovar one a day 30tabs I42.9 Steven Delgado 04/28/2019 - 1mg Tablets Tiago, M.DTroy 05/12/2019 Clindamycin HCL Three Times 9caps Unknown [...] Famotidine 1 by mouth 60tabs K21.9 Anni Vieira, 02/27/2019 - 20mg Tablets twice a day N.P. 04/29/2019 Doxycycline Hyclate 1 tab by mouth 14tabs R05 Criss 01/30/2019 - 100mg twice a day for Cotton M.DTroy 02/06/2019 Tablets 7 days Lisinopril 1 by mouth 90tabs Criss 12/24/2018 - 2.5mg Tablets every day Tom Lau 01/30/2019 Albuterol Sulfate HFA inhale 2 puffs 8.500gm R06.02 Ingrid Hellen, 2018 - by mouth every DO 12/22/2018 108(90Base) mcg/Act 4 to 6 hours if Aerosol needed Citalopram Every Day Unknown 12/22/2018 - Hydrobromide 04/30/2019 20mg Tablets Epinephrine Once Unknown 12/22/2018 - 0.3mg/0.3ML 01/30/2019 Solution Auto-Inject Metformin HCL ER Every Day Unknown 12/22/2018 - 500mg 01/30/2019 Tablets ER 24HR Medications Administered in Office Medication SIG Qnty Indications Ordering Provider Date Depomedrol 40MG Roberta Varner M.D. 03/20/2017 Injection Depomedrol 40MG Roberta Varner M.D. 05/21/2016 Injection Depomedrol 80MG Roberta Varner M.D. 07/29/2014 Injection Immunizations CPT Code Status Date Vaccine Lot # [id number] Given 01/17/2018 Influenza Virus Vaccine, Quadrivalent, Split, [id number] Preservative Free 92829 Given 02/16/2016 Influ Virus Vaccine, Quadrivalent, Split Virus, [id number] [address] Given 01/21/2015 Influenza Virus Vaccine, Quadrivalent, Split, [id number] Preservative Free 97043 Given 01/24/2014 Flu Vaccine Split Virus Preservative Free For Indiv 3Yr Older 73586 Given 11/28/2011 Pneumonia Vaccine [id number] Given 03/21/2011 Afluria Vaccine [id number] 67274 Given 12/30/2009 Influenza Virus 3Yrs & Over 51962 Given 02/28/2009 Influenza Virus Vaccine, Pandemic Formulation 32618 Given 02/24/2009 Influenza Virus 3Yrs & Over 24768 Given 02/26/2008 Influenza Virus 3Yrs & Over 79316 Given 02/26/2008 Influenza Virus 3Yrs & Over 31481 Given 03/13/2007 Influenza Virus 3Yrs & Over 39872 Given 03/13/2007 Influenza Virus 3Yrs & Over 59999 Given 02/22/2006 Influenza Virus 3Yrs & Over Vital Signs Date Vital Result Comment 05/28/2019 1:07pm Height 63 inches 5'3" Weight 176.00 lb Heart Rate 80 /min BP Systolic 102 mmHg BP Diastolic 68 mmHg O2 % BldC Oximetry 98 % BMI (Body Mass Index) 31.2 kg/m2 05/12/2019 1:47pm Height 63 inches 5'3" Weight 176.00 lb with shoes Heart Rate 68 /min BP Systolic Sitting 90 mmHg Rue lg cuff BP Diastolic Sitting 64 mmHg Rue lg cuff BP Systolic Standing 90 mmHg Rue lg cuff BP Diastolic Standing 62 mmHg Rue lg cuff Respiratory Rate 16 /min BMI (Body Mass Index) 31.2 kg/m2 Ejection Fraction 20-25% Echo 03/17/19 Results Test Acquired Date Facility Test Result H/L Range Note Laboratory test 05/28/2019 [facility] House Hemoglobin A1c 6.2 5-7 finding Basic Metabolic 05/23/2019 [facility] Sodium 140 mmol/L Normal 135-[address] [place] [address] [phone] Potassium 4.2 mmol/L Normal 3.5-5.0 Chloride 101 mmol/L Normal 101-111 Co2 Carbon Dioxide 29 mmol/L Normal 22-32 Anion Gap 10 mmol/L Normal 2-11 Glucose 103 mg/dL High 70-100 Blood Urea Nitrogen 17 mg/dL Normal 6-24 Creatinine 0.80 mg/dL Normal 0.51-0.95 BUN/Creatinine Ratio 21.3 High 8-20 Calcium 9.7 mg/dL Normal 8.6-10.3 Egfr Non- 73.4 >60 Egfr 88.8 >60 1 Basic Metabolic 05/05/2019 [facility] Sodium 139 mmol/L Normal 135-[address] [place] [address] [phone] Potassium 4.2 mmol/L Normal 3.5-5.0 Chloride 101 mmol/L Normal 101-111 Co2 Carbon Dioxide 28 mmol/L Normal 22-32 Anion Gap 10 mmol/L Normal 2-11 Glucose 105 mg/dL High 70-100 Blood Urea Nitrogen 13 mg/dL Normal 6-24 Creatinine 0.72 mg/dL Normal 0.51-0.95 BUN/Creatinine Ratio 18.1 Normal 8-20 Calcium 9.4 mg/dL Normal 8.6-10.3 Egfr Non- 82.9 >60 Egfr 100.3 >60 2 Comp Metabolic 04/28/2019 [facility] Sodium 137 mmol/L Normal 135-[address] [place] [address] [phone] Potassium 3.6 mmol/L Normal 3.5-5.0 Chloride 106 [...] Egfr 109.0 >60 3 Laboratory test 04/28/2019 [facility] Troponin-I 0.01 <0.03 [address] (TnI) ng/[place] [address] [phone] CBC Auto Diff 04/28/2019 [facility] White Blood 7.1 Normal 3.5 -10.[address] Count 10^3/[place] [address] [phone] Red Blood Count 4.76 10^6/uL Normal 3.70-4.87 [...] Red Blood Cells % 0.0 Laboratory 04/28/2019 [facility] B-Type 443 pg/mL High <=100 test finding [address] [address] Peptide BNP [phone] Laboratory 04/27/2019 [facility] D Dimer 610 ng/mL High Less 5 test finding [address] Quantitative Than 230 [place] [address] [phone] CKMB 04/27/2019 [facility] CKMB ng/mL 0.8 ng/mL Normal 0.6- 6.[address] [place] [address] [phone] Laboratory 04/27/2019 [facility] C Reactive 24.11 High <8.[address] Protein mg/[place] [address] [phone] Comp Metabolic 04/27/2019 [facility] Sodium 140 Normal 135- [address] mmol/[place] [address] [phone] Potassium 3.7 mmol/L Normal 3.5-5.0 Chloride 105 [...] Egfr 105.4 >60 6 Laboratory test 04/27/2019 [facility] Lactic Acid 0.9 mmol/L Normal 0.5-2.0 [address] [place] [address] [phone] B-Type Natriuretic Peptide BNP 359 pg/mL High <=100 Troponin-I (TnI) 0.01 ng/mL <0.03 8 Urinalysis Profile 04/27/2019 [facility] Urine Color Straw [address] [place] [address] [phone] Urine Appearance Clear Urine Specific [place] 1.002 Low 1.010-1.030 Urine pH 6.0 Normal 5-9 Urine Urobilinogen Negative Negative Urine Ketones Negative Negative Urine Protein Negative Negative Urine Leukocytes Negative Negative Urine Blood 1+ Abnormal Negative Urine Nitrite Negative Negative Urine Bilirubin Negative Negative Urine Glucose Negative Negative Urine White Blood Cell Absent Absent Urine Red Blood Cell Trace(0-2/hpf) Absent Urine Bacteria Absent Absent CBC Auto 04/27/2019 [facility] White Blood 6.1 10^3/uL Normal 3.5-10.[address] [place] [address] [phone] Red Blood Count 4.83 10^6/uL Normal 3.70-4.87 [...] Red Blood Cells % 0.1 Laboratory 04/27/2019 [facility] Troponin-I 0.01 ng/mL <0.03 9 test finding [address] (TnI) [place], [place] [id number] [phone] Pre Cath Panel 04/16/2019 [facility] Partial 37.2 Normal 26.0- 38. [address] Thrombo Time seconds 0 [place] [address] PTT [phone] CBC Auto Diff 04/16/2019 [facility] White Blood 7.6 Normal 3.5 -10.[address] Count 10^3/[place] [address] [phone] Red Blood Count 5.14 10^6/uL High 3.70-4.87 [...] Red Blood Cells % 0.2 Inr/Protime 04/16/2019 [facility] Inr 1.03 Normal 0.82-1.[address] [place], [place] [id number] [phone] Basic Metabolic 04/16/2019 [facility] Sodium 140 mmol/L Normal 135-[address] [place] [address] [phone] Potassium 4.3 mmol/L Normal 3.5-5.0 Chloride 104 mmol/L Normal 101-111 Co2 Carbon Dioxide 25 mmol/L Normal 22-32 Anion Gap 11 mmol/L Normal 2-11 Glucose 94 mg/dL Normal 70-100 Blood Urea Nitrogen 10 mg/dL Normal 6-24 Creatinine 0.67 mg/dL Normal 0.51-0.95 BUN/Creatinine Ratio 14.9 Normal 8-20 Calcium 9.8 mg/dL Normal 8.6-10.3 Egfr Non- 90.1 >60 Egfr 109.0 >60 12 Urine Culture And 04/03/2019 [facility] Urine Culture SEE RESULT [address] [place] [address] [phone] Urine Drug SCR ED 04/03/2019 [facility] Urine None None [facility] [address] [place] [address] Screen [phone] Urine Barbiturates Screen None Detected None Detect Urine Benzodiazepine Screen None Detected None Detect Urine Cannabinoids Screen None Detected None Detect Urine Cocaine Screen None Detected None Detect Urine Opiates Screen None Detected None Detect Urine Phencyclidine Screen None Detected None Detect 14 Laboratory test 04/03/2019 [facility] Acetaminophen < 15 g/mL 15 finding [address] [place] [address] [phone] Alcohol < 10 mg/dL Normal <10 Salicylate < 2.50 mg/dL <30 Comp Metabolic 04/03/2019 [facility] Sodium 138 mmol/L Normal 135-145 Panel [address] [place] [address] [phone] Potassium 3.7 mmol/L Normal 3.5-5.0 Chloride 106 [...] Egfr Non- 84.6 >60 Egfr 102.3 >60 16 Urinalysis Profile 04/03/2019 [facility] Urine Color Yellow [address] [place] [address] [phone] Urine Appearance Clear Urine Specific [place] 1.002 Low 1.010-1.030 Urine pH 6.0 Normal [...] Cell Present Abnormal Absent CBC Auto 04/03/2019 [facility] White Blood 8.2 10^3/uL Normal 3.5-10.[address] [place] [address] [phone] Red Blood Count 5.45 10^6/uL High 3.70-4.87 [...] Red Blood Cells % 0.1 Laboratory test 03/26/2019 [facility] Troponin-I (TnI) 0.01 ng/ mL <0.03 [address] [place] [address] [phone] B-Type Natriuretic Peptide BNP 183 pg/mL High <=100 Basic Metabolic 03/26/2019 [facility] Sodium 140 mmol/L Normal 135-[address] [place] [address] [phone] Potassium 4.1 mmol/L Normal 3.5-5.0 Chloride 105 mmol/L Normal 101-111 Co2 Carbon Dioxide 26 mmol/L Normal 22-32 Anion Gap 9 mmol/L Normal 2-11 Glucose 95 mg/dL Normal 70-100 Blood Urea Nitrogen 13 mg/dL Normal 6-24 Creatinine 0.74 mg/dL Normal 0.51-0.95 BUN/Creatinine Ratio 17.6 Normal 8-20 Calcium 9.6 mg/dL Normal 8.6-10.3 Egfr Non- 80.6 >60 Egfr 97.5 >60 18 CBC Auto 03/26/2019 [facility] White Blood 6.5 10^3/uL Normal 3.5-10.[address] [place] [address] [phone] Red Blood Count 5.28 10^6/uL High 3.70-4.87 [...] Nucleated Red Blood Cells % 0.0 Laboratory 03/26/2019 [facility] Partial 40.3 High 26.0-38.0 test finding [address] [place] [address] Time PTT [phone] Inr/Protime 03/26/2019 [facility] Inr 1.03 Normal 0.82-1.[address] [place] [address] [phone] Laboratory 03/26/2019 [facility] Troponin-I 0.01 ng/mL <0.03 20 test finding [address] (TnI) [place] [address] [phone] CBC Auto Diff 01/28/2019 [facility] White Blood 9.7 10^3/uL Normal 3.5-10.[address] [place] [address] [phone] Red Blood Count 5.32 10^6/uL High 3.70-4.87 [...] Blood Cells % 0.1 Laboratory test 01/28/2019 [facility] B-Type 179 pg/mL High <= [address] [place] [address] Peptide BNP [phone] Laboratory test 01/28/2019 [facility] Troponin-I 0.02 <0.04 [address] (TnI) ng/mL [place], [place] [address] [phone] Comp Metabolic 01/28/2019 [facility] Sodium 133 Low 135-[address] mmol/[place] [address] [phone] Potassium 4.4 mmol/L Normal 3.5-5.0 Chloride 102 [...] >60 Egfr 85.4 >60 22 Laboratory 01/28/2019 [facility] Troponin-I 0.03 <0.04 23 test finding [address] (TnI) ng/mL [place], [place] [address] [phone] CBC Auto Diff 01/09/2019 [facility] White Blood 6.5 Normal 3.5 -10.[address] Count 10^3/[place] [address] [phone] Red Blood Count 4.84 10^6/uL Normal 3.70-4.87 [...] Blood Cells % 0.0 Laboratory test 01/09/2019 [facility] C Reactive 5.85 mg/L Normal <8.[address] [place] [address] [phone] Liver Function 01/09/2019 [facility] Total Protein 7.1 g/dL Normal 6.4-8.[address] [place] [address] [phone] Albumin 3.9 g/dL Normal 3.2-5.2 Globulin 3.2 g/dL Normal 2-4 Albumin/Globulin Ratio 1.2 Normal 1-3 Total Bilirubin 1.20 mg/dL High 0.2-1.0 Direct Bilirubin 0.20 mg/dL High 0.03-0.18 Indirect Bilirubin 1.0 mg/dL Normal 0.3-1.0 Alkaline Phosphatase 129 U/L High 34-104 Alt 12 U/L Normal 7-52 Ast 12 U/L Low 13-39 Laboratory test 01/09/2019 [facility] GGTP 13 U/L Normal 9- 64.[address] [place] [address] [phone] Laboratory test 12/26/2018 [facility] Troponin-I 0.02 <0.04 [address] (TnI) ng/[place] [address] [phone] Comp Metabolic 12/26/2018 [facility] Sodium 138 Normal 135- [address] mmol/[place] [address] [phone] Potassium 3.7 mmol/L Normal 3.5-5.0 Chloride 106 [...] Non- 97.1 >60 Egfr 117.4 >60 25 CBC Auto 12/26/2018 [facility] White Blood 7.8 10^3/uL Normal 3.5-10.[address] [place] [address] [phone] Red Blood Count 4.82 10^6/uL Normal 3.70-4.87 [...] Nucleated Red Blood Cells % 0.1 Laboratory 12/26/2018 [facility] Lactic Acid 0.9 mmol/L Normal 0.5-2.0 26 test finding [address] [place] [address] [phone] Inr/Protime 12/22/2018 [facility] Inr 1.03 Normal 0.82-1.[address] [place] [phone] Laboratory 12/22/2018 [facility] Partial 38.7 High 26.0-38.0 test finding [address] [place] [address] [place] [address] Time PTT [phone] D Dimer Quantitative 453 ng/mL High Less Than 230 28 Comp Metabolic 12/22/2018 [facility] Sodium 139 mmol/L Normal 135-[address] [place] [address] [phone] Potassium 3.8 mmol/L Normal 3.5-5.0 Chloride 107 [...] Egfr Non- 106.8 >60 Egfr 129.2 >60 29 Laboratory test 12/22/2018 [facility] Troponin-I (TnI) 0.03 ng/ mL <0.04 [address] [place] [address] [phone] B-Type Natriuretic Peptide BNP 248 pg/mL High <=100 CBC Auto 12/22/2018 [facility] White Blood 7.1 10^3/uL Normal 3.5-10.[address] [place] [address] [phone] Red Blood Count 4.86 10^6/uL Normal 3.70-4.87 [...] % Nucleated Red Blood Cells % 0.0 1 Because ethnic data is not always [...] immediately to secondary confirmatory testing. Using the [employer] DxI 800 Access Immunoassay systems, the 99th [...] 5 Kidney failure <15 (or dialysis) 7 [facility] Severe Sepsis and Septic Shock Management Bundle Measure requires all lactic acids initially measuring >2.0 mmol/L be repeated. 8 Troponin-I testing on Plasma Separator Tubes (PST) has a known false positive rate of 0.20-0.40%. All positive troponins reflex immediately to secondary confirmatory testing. Using the [employer] DxI 800 Access Immunoassay systems, the 99th percentile upper reference limit was demonstrated to be < 0.03 ng/mL. 9 Troponin-I testing on Plasma Separator Tubes (PST) has a known false positive rate of 0.20-0.40%. All positive troponins reflex immediately to secondary confirmatory testing. Using the [employer] DxI 800 Access Immunoassay systems, the 99th [...] dialysis) 13 SEE RESULT BELOW Name: ODESSA EILAS : [address]: Js Bradshaw MD Acct: [id number] Unit: [id number] AGE: 58 Location: ED Re04/03/19 SEX: F Status: DEP ER SPEC: [id number] ENRIQUE: 04/03/19-[address] [facility] [address]: Js Bradshaw MD REQ: [id number] RECD: 04/03/19-1321 STATUS: [facility] DR: Criss Lau MD _ SOURCE: URINE SPDESC: ORDERED: Urine Culture Procedure Result Reported Site Urine Culture Final 04/04/19- 1007 ML Few Enterobacteriacae; possible contamination. * ML - Main Lab . END OF REPORT DEPARTMENT OF PATHOLOGY, [address] [place] [address] Roddy Villanueva M.D. Director [facility] # [id number] 14 The urine specimen was tested at the listed cutoffs: Drug class test level (ng/mL) Amphetamines 500 Barbiturates 200 Benzodiazepine metabolites 200 Cocaine metabolites 150 Cannabinoids 50 Opiates 300 Pcp 25 Specimen was received without chain of custody. Results should be used for medical purposes only. 15 Therapeutic concentration: <50 ug/mL Toxic concentration: >120 ug/mL 16 Because ethnic data is not always [...] 5 Kidney failure <15 (or dialysis) 17 Troponin-I testing on Plasma Separator Tubes (PST) has a known false positive rate of 0.20-0.40%. All positive troponins reflex immediately to secondary confirmatory testing. Using the [employer] DxI 800 Access Immunoassay systems, the 99th percentile upper reference limit was demonstrated to be < 0.03 ng/mL. 18 Because ethnic data is not always readily [...] 15-29 5 Kidney failure <15 (or dialysis) 19 Standard intensity warfarin therapeutic range: 2.0-3.0 High intensity warfarin therapeutic range: 2.5-3.5 20 Troponin-I testing on Plasma Separator Tubes (PST) has a known false positive rate of 0.20-0.40%. All positive troponins reflex immediately to secondary confirmatory testing. Using the [employer] DxI 800 Access Immunoassay systems, the 99th percentile upper reference limit was demonstrated to be < 0.03 ng/mL. 21 Troponin-I testing on Plasma Separator Tubes (PST) has a known false positive rate of 0.20-0.40%. All positive troponins reflex immediately to secondary confirmatory testing. Using the [employer] DxI 800 Access Immunoassay systems, the 99th [...] demonstrated to be < 0.03 ng/mL. 24 Troponin-I testing on Plasma Separator Tubes (PST) has a known false positive rate of 0.20-0.40%. All positive troponins reflex immediately to secondary confirmatory testing. Using the [employer] DxI 800 Access Immunoassay systems, the 99th percentile upper reference limit was demonstrated to be < 0.03 ng/mL. 25 Because ethnic data is not always [...] 5 Kidney failure <15 (or dialysis) 26 [facility] Severe Sepsis and Septic Shock Management Bundle Measure requires all lactic acids initially measuring >2.0 mmol/L be repeated. 27 Standard intensity warfarin therapeutic range: 2.0-3.0 High intensity warfarin therapeutic range: 2.5-3.5 28 Please note: The following may produce a false positive D Dimer test: - Rheumatoid factor greater than 60 IU/ml - Plasma hemoglobin greater than 0.05 gm/dl - Bilirubin greater than 50 mg/dl - Lipids greater than 1000 mg/dl - FDP greater than 20 ug/ml 29 Because ethnic data is not always readily [...] 15-29 5 Kidney failure <15 (or dialysis) 30 Verbal to [id number] by [id number] at 1446 on 12/22/18. Results read back accurately. Corrected Report. Result TnIDx:0.39 Called to [id number] at: 13:52:23 by:[id number] Read back by: [id number] CORRECTED REPORT --- Corrected on 12/22/18 1446 --- Troponin I previously reported as: 0.39 *C ng/mL Result TnIDx:0.39 Called to [id number] at: 13:52:23 by:[email or web address] Read back by: [id number] Troponin-I testing on Plasma Separator Tubes (PST) has a known false positive rate of 0.20-0.40%. All positive troponins reflex immediately to secondary confirmatory testing. Using the [employer] DxI 800 Access Immunoassay systems, the 99th percentile upper reference limit was demonstrated to be < 0.03 ng/mL. Procedures Date Code Description Status 05/12/2019 70690 EKG Tracing & Interpretation Completed 04/20/2019 42453 Insert/Replace Icd W/Generator Completed 03/17/2019 43138 ECHO Transthoracic, Real-Time 2D With Doppler And Completed Color Flow 03/17/2019 04985 ECHO Transthoracic, Real-Time 2D With Doppler And Completed Color Flow 12/30/2018 26152 EKG Tracing & Interpretation Completed 12/26/2018 64551 EKG Tracing & Interpretation Completed 12/23/2018 24449 ECHO Transthorasic Realtime 2D W Doppler & Color Flow Completed Hosp 12/23/2018 01232 Treadmill Interp/Report Only Completed 12/23/2018 06234 Stress Test Supervsn W/Out I/R Completed 12/23/2018 33339 EKG, Interpretation Only Completed 12/22/2018 66817 ECHO Transthorasic Realtime 2D W Doppler & Color Flow Completed Hosp 12/22/2018 46251 EKG, Interpretation Only Completed 12/22/2018 15283 EKG Tracing & Interpretation Completed 09/26/2018 [id number] Diabetic Retinal Eye Exam Completed 08/01/2018 [id number] Mammogram Completed 03/11/2018 [id number] Colonoscopy Completed 09/26/2017 [id number] Diabetic Retinal Eye Exam Completed 03/15/2017 [id number] Diabetic Retinal Eye Exam Completed 12/07/2016 [id number] Mammogram Completed 09/07/2016 [id number] Diabetic Retinal Eye Exam Completed 12/02/2015 [id number] Mammogram Completed 11/19/2014 [id number] Mammogram Completed 06/28/2014 [id number] Diabetic Retinal Eye Exam Completed 11/20/2013 [id number] Mammogram Completed 09/09/2013 [id number] Diabetic Retinal Eye Exam Completed 11/13/2012 [id number] Mammogram Completed 08/20/2012 [id number] Diabetic Retinal Eye Exam Completed 05/15/2012 [id number] Mammogram Completed 12/26/2011 [id number] Mammogram Completed 12/13/2011 [id number] Mammogram Completed 08/31/2010 [id number] Colonoscopy Completed 11/13/2007 [id number] Mammogram Completed 05/14/2007 [id number] Mammogram Completed 10/18/2006 [id number] Mammogram Completed 05/07/2003 [id number] Mammogram Completed Medical Devices Description No Information Available Encounters Type Date Location Provider Dx Diagnosis Office Visit 05/12/2019 [facility] ([facility]) Danny Boyle I42.9 Cardiomyopathy, 2:15p Of [facility] Tom Melchor, unspecified FACC, FASNC R94.31 Abnormal electrocardiogram [ECG] [EKG] Office Visit 04/30/2019 10:40a [facility] Internal Criss F41.9 Anxiety disorder, Medicine - Cheryl Lau M.D. unspecified Office Visit 04/28/2019 1:00p [facility] Steven Delgado I42.9 Cardiomyopathy, Of [facility] Tom Ordoñez unspecified Z95.810 Presence of automatic (implantable) cardiac defibrillator I50.9 Heart failure, unspecified Office Visit 04/07/2019 [place] [facility] Steven Delgado I42.9 Cardiomyopathy, 11:30a Cardiology Of Tom Ordoñez unspecified [facility] R94.31 Abnormal electrocardiogram [ECG] [EKG] Office Visit 03/25/2019 [place] Danny Boyle I42.9 Cardiomyopathy, 10:15a Cardiology Of Tom Melchor, unspecified [employer] FACC, FASNC Office Visit 02/27/2019 [facility] Internal Anni Vieira, R05 Cough 3:[facility]p [facility] K[facility]9 Gastro-esophageal reflux disease without esophagitis Office Visit 02/06/2019 3:40p [facility] Internal Milla Calero MD J06.9 [facility], unspecified Office Visit 01/30/2019 2:00p [facility] Internal Criss R05 Cough Medicine - Cheryl Lau M.D. Office Visit 12/30/2018 1:15p [facility] ([facility]) Danny Boyle I42.9 Cardiomyopathy, Of Marty Melchor M.D., unspecified FACC, FASNC I77.810 Thoracic aortic ectasia R94.31 Abnormal electrocardiogram [ECG] [EKG] Office Visit 12/26/2018 2:00p [facility] Criss R07.9 Chest pain, Medicine - Tom Lau unspecified Ccmob I45.4 Nonspecific intraventricular block I49.9 Cardiac arrhythmia, unspecified Office Visit 12/23/2018 [facility] Elif Mary, I42.9 Cardiomyopathy, 10:46a Assoc,[facility] [employer] unspecified Hospitalists R07.9 Chest pain, unspecified Office Visit 12/22/2018 [place] Danny Boyle R94.31 Abnormal 2:00p Cardiology Of Tom Melchor, electrocardiogram [facility], [facility] [ECG] [EKG] R07.89 Other chest pain I42.9 Cardiomyopathy, unspecified Office Visit 12/22/2018 [facility] I42.9 Cardiomyopathy, 10:46a Assbeth steward PA unspecified Hospitalists R07.9 Chest pain, unspecified R06.02 Shortness of breath Office Visit 12/22/2018 11:00a [facility] Internal Ingrid Senner, R06.02 Shortness of Medicine - Suite DO breath R F17.290 Nicotine dependence, other tobacco product, uncomplicated Office Visit 12/01/2018 8:40a [facility] Criss D64.9 Anemia, Medicine - Tom Lau unspecified Ccmob R74.0 Nonspec elev of levels of transamns & lactic acid dehydrgnse E11.9 Type 2 diabetes mellitus without complications Assessments Date Code Description Provider 05/28/2019 Z00.00 Encounter for general adult medical Criss Lau M.D. examination without abnormal findings 05/28/2019 E11.9 Type 2 diabetes mellitus without Criss Lau M.D. complications 05/28/2019 F41.9 Anxiety disorder, unspecified Criss Lau M.D. 05/28/2019 I42.9 Cardiomyopathy, unspecified Criss Lau M.D. 05/28/2019 K21.9 Gastro-esophageal reflux disease Criss Lau M.D. without esophagitis 05/12/2019 I42.9 Cardiomyopathy, unspecified Danny Melchor M.D., FACGail, [facility] 05/12/2019 R94.31 Abnormal electrocardiogram [ECG] Danny Melchor M.D., FACGail, [EKG] FASIA 04/30/2019 F41.9 Anxiety disorder, unspecified Criss Lau [...] 03/25/2019 I42.9 Cardiomyopathy, unspecified Danny Melchor M.D., [facility], [facility] 03/17/2019 I42.9 Cardiomyopathy, unspecified Danny Melchor M.D., [facility], [facility] 03/17/2019 I42.9 Cardiomyopathy, unspecified Traveling ECHO 1 02/27/2019 R05 Cough Anni Vieira, N.P. 02/27/2019 K21.9 Gastro-esophageal reflux disease Anni Isha, N.P. without esophagitis 02/06/2019 J06.9 Acute upper respiratory infection, Milla Calero MD unspecified 01/30/2019 R05 Cough Criss Lau M.D. 12/30/2018 I42.9 Cardiomyopathy, unspecified Danny Melchor M.D., [facility], [facility] 12/30/2018 I77.810 Thoracic aortic ectasia Danny Melchor M.D., [facility], [facility] 12/30/2018 R94.31 Abnormal electrocardiogram [ECG] [facility], [EKG] [facility] 12/26/2018 R07.9 Chest pain, unspecified Criss Lau M.D. 12/26/2018 I45.4 Nonspecific intraventricular block Criss Lau M.D. 12/26/2018 I49.9 Cardiac arrhythmia, unspecified Criss Lau M.D. 12/23/2018 R94.31 Abnormal electrocardiogram [ECG] Madhavi Chaudhary M.D. [EKG] 12/23/2018 R07.9 Chest pain, unspecified Catherine Bartlett MD, [facility], [facility] 12/23/2018 I42.9 Cardiomyopathy, unspecified Elif Mary, [employer] 12/23/2018 R07.9 Chest pain, unspecified Elif Mary, [employer] 12/22/2018 R94.31 Abnormal electrocardiogram [ECG] Madhavi Chaudhary M.D. [EKG] 12/22/2018 R94.31 Abnormal electrocardiogram [ECG] Danny Melchor M.D., [facility], [EKG] [facility] 12/22/2018 R07.89 Other chest pain Danny Melchor M.D., [facility], [facility] 12/22/2018 I42.9 Cardiomyopathy, unspecified Danny Melchor M.D., [facility], [facility] 12/22/2018 I42.9 Cardiomyopathy, unspecified Nino Ding, PA 12/22/2018 R06.02 Shortness of breath Ingrid Macedo, 12/22/2018 R07.9 Chest pain, unspecified Nino Ding, PA 12/22/2018 F17.290 Nicotine dependence, other tobacco Ingrid Macedo, product, uncomplicated 12/22/2018 R06.02 Shortness of breath Nino Ding, PA 12/01/2018 D64.9 Anemia, unspecified Criss Lau M.D. 12/01/2018 R74.0 Nonspecific elevation of levels of Criss Lau M.D. transaminase and lactic acid dehydrogenase [LDH] 12/01/2018 E11.9 Type 2 diabetes mellitus without Criss Lau M.D. complications Plan of Treatment Future Appointment(s):11/26/2019 10:20 am - Abdi Anton NP at [facility] Internal Medicine - [facility]05/29/2019 9:00 am - Ica Pacer Schedule at [facility]07/17/2019 1:00 pm - Danny Melchor M.D., [facility], [facility] at [facility]09/04/2019 9:45 am - [facility] - Criss Lau M.D.Z00.00 Encounter for general adult medical examination without abnormal findingsComments:VACCINES: Flu shot every year in the fall.Tetanus: last one done in 2003. You are due for a booster if you have a skin injury bad enough for trip to [place]Pneumonia vaccine: you had the Pneumovax in 2011. Booster due at age 65Shingles vaccine: there are 2 shingles vaccinesZostavax: 50% effective, recommended at age 60Shingrix: 90% effective, recommended at age 50. Available at pharmacies. Series of 2 shots. Total cost about $400. Contact your insurance about coverage.CANCER SCREENING: Colonoscopy: last one done in 2017Mammogram: last done 08/01/18, recheck in ap smear: done in 2015, next due in 2020 OTHER SCREENING:Annual diabetic eye exams with Dr. Altamirano - done in September 2018Cholesterol: due in DphukA14.9 Type 2 diabetes mellitus without complicationsComments:Your A1C today is 6.2 which is very good. Your diabetes is under good controlFollow up:6 months - see triage about changing PCPF41.9 Anxiety disorder, agrnnsofydcZ18.9 Cardiomyopathy , hjfvmgdnvpjT38.9 Gastro-esophageal reflux disease without esophagitisNew Medication:Lansoprazole 30 mg - 1 by mouth every dayComments:Stop the esomeprazoleStart pantoprazole Functional Status Description No Information Available Mental Status Description No Information Available Referrals Refer to Dr Reason for Referral Status Appt Date Steven Ordoñez MD Dear Dr. Ordoñez, pt has persistent severe Sent non-ischemic CMP. Please evaluate Ms. Elias for ICD for primary prophylaxis for SCD. [facility] [place] [address] [phone]
--- OUTSIDE RECORDS SUMMARY | 2019-06-25 23:20 | XMS REPORT | Continuity of Care Document ---
:1960 External Reference #:[id number] Author Name Roberta Varner M.D. (transmitted by agent of provider Isela Larkin) Address [address] [place] [id number] Care Team Providers Name Role Phone Criss Lau MD - Internal Care Team Information [employer] Medicine Luda Craig MD - Obstetrics & Care Team Information [employer] Gynecology [facility] Betancourt M.D. - Single Care Team Information [employer] [phone] [facility] [place] - Mental Care Team Information [employer] [facility] ENT - Clinic/Center Care Team Information [employer] [phone] Roland Rey MD - Care Team Information [employer] [phone] Otolaryngology Brittaney Altamirano O.D. - Mirror Framer Care Team Information [employer] Problems Active Problems Provider Date Type 2 diabetes mellitus Felicity Negrete M.D., FACP Onset: 07/13/2010 Pure hypercholesterolemia Felicity Negrete M.D., FACP Onset: 07/13/2010 Benign essential hypertension Felicity Negrete M.D., FACP Onset: 07/13/2010 Migraine without aura, not refractory Cherelle Francis M.D. Onset: 2014 Cardiomyopathy Danny Melchor M.D., [facility], Onset: 12/30/2018 FASNC Social History Type [...] Danny Melchor, 05/12/2019 2mg Tablets day M.D., [facility], FASMA Venlafaxine HCL ER 1 by mouth every [...] B12 1 by mouth every 30tabs R26.81 [facility] Sid, 02/11/2017 1000mcg day M.D. Tablets ER Walker 4 wheels, 1units R26.81 [facility] Sid, 01/11/2017 [facility] brakes, seat and M.D. basket. r26.81 G62.9 Miralax 17 gm every day 510units R10.13 [facility] Sid, 11/17/2015 3350NF Powder mixed w/ 8 oz M.D. water/juice as needed Gabapentin take one capsule by 90caps E11.40 [facility] Sid, 02/25/2015 100mg mouth two times a [...] for Tom Lau 02/06/2019 Tablets 7 days Lisinopril 1 by [...] CPT Code Status Date Vaccine Lot # [id number] Given 01/17/2018 Influenza Virus Vaccine, Quadrivalent, Split, [id number] Preservative Free 86316 Given 02/16/2016 Influ Virus Vaccine, Quadrivalent, Split Virus, [id number] [address] Given 01/21/2015 Influenza Virus Vaccine, Quadrivalent, Split, [id number] Preservative Free 62341 Given 01/24/2014 Flu Vaccine Split Virus Preservative Free For Indiv 3Yr Older 42899 Given 11/28/2011 Pneumonia Vaccine [id number] Given 03/21/2011 Afluria Vaccine [id number] 83024 Given 12/30/2009 Influenza Virus 3Yrs & Over 99909 Given 02/28/2009 Influenza Virus Vaccine, Pandemic Formulation 24623 Given 02/24/2009 Influenza Virus 3Yrs & Over 37604 Given 02/26/2008 Influenza Virus 3Yrs & Over 84005 Given 02/26/2008 Influenza Virus 3Yrs & Over 53277 Given 03/13/2007 Influenza Virus 3Yrs & Over 05887 Given 03/13/2007 Influenza Virus 3Yrs & Over 89873 Given 02/22/2006 Influenza Virus 3Yrs & Over [...] Result H/L Range Note Laboratory test 05/28/2019 [facility] In House Hemoglobin A1c 6.2 5-7 finding Basic Metabolic 05/23/2019 [facility] Sodium 140 mmol/L Normal 135-145 Panel [address] [place], [place] [id number] [phone] Potassium 4.2 mmol/L Normal 3.5-5.0 Chloride 101 mmol/L Normal 101-111 Co2 Carbon Dioxide 29 mmol/L Normal 22-32 Anion Gap 10 mmol/L Normal 2-11 Glucose 103 mg/dL High 70-100 Blood Urea Nitrogen 17 mg/dL Normal 6-24 Creatinine 0.80 mg/dL Normal 0.51-0.95 BUN/Creatinine Ratio 21.3 High 8-20 Calcium 9.7 mg/dL Normal 8.6-10.3 Egfr Non- 73.4 >60 Egfr 88.8 >60 1 Basic Metabolic 05/05/2019 [facility] Sodium 139 mmol/L Normal 135-145 Panel [address] [place] [address] [phone] Potassium 4.2 mmol/L Normal 3.5-5.0 Chloride 101 mmol/L Normal 101-111 Co2 Carbon Dioxide 28 mmol/L Normal 22-32 Anion Gap 10 mmol/L Normal 2-11 Glucose 105 mg/dL High 70-100 Blood Urea Nitrogen 13 mg/dL Normal 6-24 Creatinine 0.72 mg/dL Normal 0.51-0.95 BUN/Creatinine Ratio 18.1 Normal 8-20 Calcium 9.4 mg/dL Normal 8.6-10.3 Egfr Non- 82.9 >60 Egfr 100.3 >60 2 Comp Metabolic 04/28/2019 [facility] Sodium 137 mmol/L Normal 135-[address] [place] [address] [phone] Potassium 3.6 mmol/L Normal 3.5-5.0 Chloride 106 [...] Egfr 109.0 >60 3 Laboratory test 04/28/2019 [facility] Troponin-I 0.01 <0.03 [address] (TnI) ng/[place] [address] [phone] CBC Auto Diff 04/28/2019 [facility] White Blood 7.1 Normal 3.5 -10.[address] Count 10^3/[place] [address] [phone] Red Blood Count 4.76 10^6/uL Normal 3.70-4.87 [...] Red Blood Cells % 0.0 Laboratory 04/28/2019 [facility] B-Type 443 pg/mL High <=[address] [place] [address] Peptide BNP [phone] Laboratory 04/27/2019 [facility] D Dimer 610 ng/mL High Less [address] Quantitative Than 230 [place] [address] [phone] CKMB 04/27/2019 [facility] CKMB ng/mL 0.8 ng/mL Normal 0.6- 6.[address] [place] [address] [phone] Laboratory 04/27/2019 [facility] C Reactive 24.11 High <8.[address] Protein mg/[place] [address] [phone] Comp Metabolic 04/27/2019 [facility] Sodium 140 Normal 135- [address] mmol/[place] [address] [phone] Potassium 3.7 mmol/L Normal 3.5-5.0 Chloride 105 [...] Egfr 105.4 >60 6 Laboratory test 04/27/2019 [facility] Lactic Acid 0.9 mmol/L Normal 0.5-2.0 [address] [place] [address] [phone] B-Type Natriuretic Peptide BNP 359 pg/mL High <=100 Troponin-I (TnI) 0.01 ng/mL <0.03 8 Urinalysis Profile 04/27/2019 [facility] Urine Color Straw [address] [place] [address] [phone] Urine Appearance Clear Urine Specific [place] 1.002 Low 1.010-1.030 Urine pH 6.0 Normal 5-9 Urine Urobilinogen Negative Negative Urine Ketones Negative Negative Urine Protein Negative Negative Urine Leukocytes Negative Negative Urine Blood 1+ Abnormal Negative Urine Nitrite Negative Negative Urine Bilirubin Negative Negative Urine Glucose Negative Negative Urine White Blood Cell Absent Absent Urine Red Blood Cell Trace(0-2/hpf) Absent Urine Bacteria Absent Absent CBC Auto 04/27/2019 [facility] White Blood 6.1 10^3/uL Normal 3.5-10.[address] [place] [address] [phone] Red Blood Count 4.83 10^6/uL Normal 3.70-4.87 [...] Red Blood Cells % 0.1 Laboratory 04/27/2019 [facility] Troponin-I 0.01 ng/mL <0.03 9 test finding [address] (TnI) [place] [address] [phone] Pre Cath Panel 04/16/2019 [facility] Partial 37.2 Normal 26.0- 38. [address] Thrombo Time seconds 0 [place] [address] PTT [phone] CBC Auto Diff 04/16/2019 [facility] White Blood 7.6 Normal 3.5 -10.[address] Count 10^3/[place] [address] [phone] Red Blood Count 5.14 10^6/uL High 3.70-4.87 [...] Red Blood Cells % 0.2 Inr/Protime 04/16/2019 [facility] Inr 1.03 Normal 0.82-1.[address] [place] [address] [phone] Basic Metabolic 04/16/2019 [facility] Sodium 140 mmol/L Normal 135-[address] [place] [address] [phone] Potassium 4.3 mmol/L Normal 3.5-5.0 Chloride 104 mmol/L Normal 101-111 Co2 Carbon Dioxide 25 mmol/L Normal 22-32 Anion Gap 11 mmol/L Normal 2-11 Glucose 94 mg/dL Normal 70-100 Blood Urea Nitrogen 10 mg/dL Normal 6-24 Creatinine 0.67 mg/dL Normal 0.51-0.95 BUN/Creatinine Ratio 14.9 Normal 8-20 Calcium 9.8 mg/dL Normal 8.6-10.3 Egfr Non- 90.1 >60 Egfr 109.0 >60 12 Urine Culture And 04/03/2019 [facility] Urine Culture SEE RESULT [address] [place], [place] [phone] Urine Drug SCR ED 04/03/2019 [facility] Urine None None & [facility] [address] [place] [address] Screen [phone] Urine Barbiturates Screen None Detected None Detect Urine Benzodiazepine Screen None Detected None Detect Urine Cannabinoids Screen None Detected None Detect Urine Cocaine Screen None Detected None Detect Urine Opiates Screen None Detected None Detect Urine Phencyclidine Screen None Detected None Detect 14 Laboratory test 04/03/2019 [facility] Acetaminophen < 15 g/mL 15 finding [address] [place] [address] [phone] Alcohol < 10 mg/dL Normal <10 Salicylate < 2.50 mg/dL <30 Comp Metabolic 04/03/2019 [facility] Sodium 138 mmol/L Normal 135-[address] [place] [address] [phone] Potassium 3.7 mmol/L Normal 3.5-5.0 Chloride 106 [...] Egfr 102.3 >60 16 Urinalysis Profile 04/03/2019 [facility] Urine Color Yellow [address] [place] [address] [phone] Urine Appearance Clear Urine Specific [place] 1.002 Low 1.010-1.030 Urine pH 6.0 Normal [...] Cell Present Abnormal Absent CBC Auto 04/03/2019 [facility] White Blood 8.2 10^3/uL Normal 3.5-10.[address] [place] [address] [phone] Red Blood Count 5.45 10^6/uL High 3.70-4.87 [...] Blood Cells % 0.1 Laboratory test 03/26/2019 [facility] Troponin-I (TnI) 0.01 ng/ mL <0.03 [address] [place] [address] [phone] B-Type Natriuretic Peptide BNP 183 pg/mL High <=100 Basic Metabolic 03/26/2019 [facility] Sodium 140 mmol/L Normal 135-[address] [place] [address] [phone] Potassium 4.1 mmol/L Normal 3.5-5.0 Chloride 105 mmol/L Normal 101-111 Co2 Carbon Dioxide 26 mmol/L Normal 22-32 Anion Gap 9 mmol/L Normal 2-11 Glucose 95 mg/dL Normal 70-100 Blood Urea Nitrogen 13 mg/dL Normal 6-24 Creatinine 0.74 mg/dL Normal 0.51-0.95 BUN/Creatinine Ratio 17.6 Normal 8-20 Calcium 9.6 mg/dL Normal 8.6-10.3 Egfr Non- 80.6 >60 Egfr 97.5 >60 18 CBC Auto 03/26/2019 [facility] White Blood 6.5 10^3/uL Normal 3.5-10.[address] [place] [address] [phone] Red Blood Count 5.28 10^6/uL High 3.70-4.87 [...] Red Blood Cells % 0.0 Laboratory 03/26/2019 [facility] Partial 40.3 High 26.0-38.0 test finding [address] [place] [address] Time PTT [phone] Inr/Protime 03/26/2019 [facility] Inr 1.03 Normal 0.82-1.[address] [place] [address] [phone] Laboratory 03/26/2019 [facility] Troponin-I 0.01 ng/mL <0.03 20 test finding [address] (TnI) [place], [place] [address] [phone] CBC Auto Diff 01/28/2019 [facility] White Blood 9.7 10^3/uL Normal 3.5-10.[address] [place] [address] [phone] Red Blood Count 5.32 10^6/uL High 3.70-4.87 [...] Blood Cells % 0.1 Laboratory test 01/28/2019 [facility] B-Type 179 pg/mL High <= [address] [place] [address] Peptide BNP [phone] Laboratory test 01/28/2019 [facility] Troponin-I 0.02 <0.04 [address] (TnI) ng/[place] [address] [phone] Comp Metabolic 01/28/2019 [facility] Sodium 133 Low 135-[address] mmol/L [place], [place] [address] [phone] Potassium 4.4 mmol/L Normal 3.5-5.0 Chloride 102 [...] >60 Egfr 85.4 >60 22 Laboratory 01/28/2019 [facility] Troponin-I 0.03 <0.04 23 test finding [address] (TnI) ng/[place] [address] [phone] CBC Auto Diff 01/09/2019 [facility] White Blood 6.5 Normal 3.5 -10.[address] Count 10^3/uL [place], [place] [address] [phone] Red Blood Count 4.84 10^6/uL Normal 3.70-4.87 [...] Blood Cells % 0.0 Laboratory test 01/09/2019 [facility] C Reactive 5.85 mg/L Normal <8.[address] [place] [address] [phone] Liver Function 01/09/2019 [facility] Total Protein 7.1 g/dL Normal 6.4-8.[address] [place] [address] [phone] Albumin 3.9 g/dL Normal 3.2-5.2 Globulin 3.2 g/dL Normal 2-4 Albumin/Globulin Ratio 1.2 Normal 1-3 Total Bilirubin 1.20 mg/dL High 0.2-1.0 Direct Bilirubin 0.20 mg/dL High 0.03-0.18 Indirect Bilirubin 1.0 mg/dL Normal 0.3-1.0 Alkaline Phosphatase 129 U/L High 34-104 Alt 12 U/L Normal 7-52 Ast 12 U/L Low 13-39 Laboratory test 01/09/2019 [facility] GGTP 13 U/L Normal 9- 64.[address] [place] [address] [phone] Laboratory test 12/26/2018 [facility] Troponin-I 0.02 <0.[address] (TnI) ng/[place] [address] [phone] Comp Metabolic 12/26/2018 [facility] Sodium 138 Normal 135- [address] mmol/[place] [address] [phone] Potassium 3.7 mmol/L Normal 3.5-5.0 Chloride 106 [...] Egfr 117.4 >60 25 CBC Auto 12/26/2018 [facility] White Blood 7.8 10^3/uL Normal 3.5-10.[address] [place] [address] [phone] Red Blood Count 4.82 10^6/uL Normal 3.70-4.87 [...] Red Blood Cells % 0.1 Laboratory 12/26/2018 [facility] Lactic Acid 0.9 mmol/L Normal 0.5-2.0 26 test finding [address] [place] [address] [phone] Inr/Protime 12/22/2018 [facility] Inr 1.03 Normal 0.82-1.[address] [place] [address] [phone] Laboratory 12/22/2018 [facility] Partial 38.7 High 26.0-38.0 test finding [address] [place] [address] [place] [address] Time PTT [phone] D Dimer Quantitative 453 ng/mL High Less Than 230 28 Comp Metabolic 12/22/2018 [facility] Sodium 139 mmol/L Normal 135-[address] [place] [phone] Potassium 3.8 mmol/L Normal 3.5-5.0 Chloride 107 [...] Egfr 129.2 >60 29 Laboratory test 12/22/2018 [facility] Troponin-I (TnI) 0.03 ng/ mL <0.04 [address] [place] [address] [phone] B-Type Natriuretic Peptide BNP 248 pg/mL High <=100 CBC Auto 12/22/2018 [facility] White Blood 7.1 10^3/uL Normal 3.5-10.[address] [place] [address] [phone] Red Blood Count 4.86 10^6/uL Normal 3.70-4.87 [...] immediately to secondary confirmatory testing. Using the Actix DxI 800 Access Immunoassay systems, the 99th [...] 5 Kidney failure <15 (or dialysis) 7 [facility] Severe Sepsis and Septic Shock Management Bundle Measure requires all lactic acids initially measuring >2.0 mmol/L be repeated. 8 Troponin-I testing on Plasma Separator Tubes (PST) has a known false positive rate of 0.20-0.40%. All positive troponins reflex immediately to secondary confirmatory testing. Using the Unicthreadsy DxI 800 Access Immunoassay systems, the 99th percentile upper reference limit was demonstrated to be < 0.03 ng/mL. 9 Troponin-I testing on Plasma Separator Tubes (PST) has a known false positive rate of 0.20-0.40%. All positive troponins reflex immediately to secondary confirmatory testing. Using the Unicthreadsy DxI 800 Access Immunoassay systems, the 99th [...] [address]: Js Bradshaw MD Acct: [id number] Unit: [id number] AGE: 58 Location: ED Re04/03/19 SEX: F Status: DEP ER SPEC: [id number] ENRIQUE: 04/03/19-[address] [facility] [address]: Js Bradshaw MD REQ: [id number] RECD: 04/03/19 STATUS: [facility] DR: Criss Lau MD _ SOURCE: URINE SPDESC: ORDERED: Urine Culture Procedure Result Reported Site Urine Culture Final 04/04/19- 1007 ML Few Enterobacteriacae; possible contamination. * ML - Main Lab . END OF REPORT DEPARTMENT OF PATHOLOGY, [address] [place] [address] Roddy Villanueva M.D. Director [facility] # [id number] 14 The urine specimen was tested at [...] immediately to secondary confirmatory testing. Using the Actix DxI 800 Access Immunoassay systems, the 99th [...] immediately to secondary confirmatory testing. Using the Unicthreadsy DxI 800 Access Immunoassay systems, the 99th percentile upper reference limit was demonstrated to be < 0.03 ng/mL. 21 Troponin-I testing on Plasma Separator Tubes (PST) has a known false positive rate of 0.20-0.40%. All positive troponins reflex immediately to secondary confirmatory testing. Using the Unicthreadsy DxI 800 Access Immunoassay systems, the 99th [...] 5 Kidney failure <15 (or dialysis) 26 [place] Severe Sepsis and Septic Shock Management [...] failure <15 (or dialysis) 30 Verbal to [id number] by [id number] at 1446 on 12/22/18. Results read back accurately. Corrected Report. Result TnIDx:0.39 Called to [id number] at: 13:52:23 by:[id number] Read back by: [id number] CORRECTED REPORT --- Corrected on 12/22/18 1446 --- Troponin I previously reported as: 0.39 *C ng/mL Result TnIDx:0.39 Called to [id number] at: 13:52:23 by:[id number] Read back by: [email or web address] Troponin-I testing on Plasma Separator Tubes (PST) has a known false positive rate of 0.20-0.40%. All positive troponins reflex immediately to secondary confirmatory testing. Using the [employer] Access Immunoassay systems, the 99th percentile upper reference limit was demonstrated to be < 0.03 ng/mL. Procedures Date Code Description Status 05/29/2019 14765 Interrogation Implant Cardiovasc Monitor System Incl Completed Analysis Int 05/29/2019 25848 Interrogation Implant Cardiovasc Monitor System Incl Completed Analysis Int 05/29/2019 01162 Icd eval w/iterative adjment single lead Icd Completed 05/29/2019 70059 Icd eval w/iterative adjment single lead Icd Completed 05/12/2019 61408 EKG Tracing & Interpretation Completed 04/20/2019 32214 Insert/Replace Icd W/Generator Completed 03/17/2019 75201 ECHO Transthoracic, Real-Time 2D With Doppler And Completed Color Flow 03/17/2019 63697 ECHO Transthoracic, Real-Time 2D With Doppler And Completed Color Flow 12/30/2018 52108 EKG Tracing & Interpretation Completed 12/26/2018 99717 EKG Tracing & Interpretation Completed 12/23/2018 81599 EKG, Interpretation Only Completed 12/23/2018 13997 Stress Test Supervsn W/Out I/R Completed 12/23/2018 24684 Treadmill Interp/Report Only Completed 12/23/2018 55606 ECHO Transthorasic Realtime 2D W Doppler & Color Flow Completed Hosp 12/22/2018 63602 ECHO Transthorasic Realtime 2D W Doppler & Color Flow Completed Hosp 12/22/2018 19295 EKG, Interpretation Only Completed 12/22/2018 45920 EKG Tracing & Interpretation Completed 09/26/2018 861272518 Diabetic Retinal Eye Exam Completed 08/01/2018 40249103 Mammogram Completed 03/11/2018 09901295 Colonoscopy Completed 09/26/2017 825708662 Diabetic Retinal Eye Exam Completed 03/15/2017 462709248 Diabetic Retinal Eye Exam Completed 12/07/2016 89073004 Mammogram Completed 09/07/2016 293210927 Diabetic Retinal Eye Exam Completed 12/02/2015 63667781 Mammogram Completed 11/19/2014 87589414 Mammogram Completed 06/28/2014 764682875 Diabetic Retinal Eye Exam Completed 11/20/2013 80831925 Mammogram Completed 09/09/2013 796972948 Diabetic Retinal Eye Exam Completed 11/13/2012 32264432 Mammogram Completed 08/20/2012 494362138 Diabetic Retinal Eye Exam Completed 05/15/2012 18150482 Mammogram Completed 12/26/2011 96332664 Mammogram Completed 12/13/2011 68048602 Mammogram Completed 08/31/2010 44972400 Colonoscopy Completed 11/13/2007 07294970 Mammogram Completed 05/14/2007 04313043 Mammogram Completed 10/18/2006 27316491 Mammogram Completed 05/07/2003 98292116 Mammogram Completed Medical Devices Description No Information Available Encounters Type Date Location Provider Dx Diagnosis Office Visit 06/10/2019 [facility] Roberta M18.11 Unil primary 8:15a at [place] Varner M.D. osteoarth of first carpometacarp joint, r hand G56.01 Carpal tunnel syndrome, right upper limb G56.21 Lesion of ulnar nerve, right upper limb Office Visit 05/12/2019 2:[place] I42.9 Cardiomyopathy, Cardiology Of Tom Melchor, unspecified [facility] FACC, FASNC R94.31 Abnormal electrocardiogram [ECG] [EKG] Office Visit 04/30/2019 10:40a [facility] Internal Criss F41.9 Anxiety disorder, Medicine - Cheryl Lau M.D. unspecified Office Visit 04/28/2019 1:00p [facility] Steven Delgado I42.9 Cardiomyopathy, Of [facility] Tom Ordoñez unspecified Z95.810 Presence of automatic (implantable) cardiac defibrillator I50.9 Heart failure, unspecified Office Visit 04/07/2019 [place] Steven Delgado I42.9 Cardiomyopathy, 11:30a Cardiology Shasta Ordoñez M.D. unspecified [facility] R94.31 Abnormal electrocardiogram [ECG] [EKG] Office Visit 03/25/2019 [place] Danny Boyle I42.9 Cardiomyopathy, 10:15a Cardiology Shasta Melchor M.D., unspecified [facility] FACC, FASNC Office Visit 02/27/2019 [facility] Internal Anni Vieira R05 Cough 3:[facility] K21.9 Gastro-esophageal reflux disease without esophagitis Office Visit 02/06/2019 3:40p [facility] Internal Milla Calero MD J06.9 Acute upper [facility], unspecified Office Visit 01/30/2019 2:00p [facility] Internal Criss R05 Cough Medicine - Cheryl Lau M.D. Office Visit 12/30/2018 1:15p [facility] Danny Boyle I42.9 Cardiomyopathy, [facility] M.D., [facility] I77.810 Thoracic aortic ectasia R94.31 Abnormal electrocardiogram [ECG] [EKG] Office Visit 12/26/2018 2:00p [facility] Internal Criss R07.9 Chest pain, Medicine - Tom Lau unspecified Ccmob I45.4 Nonspecific intraventricular block I49.9 Cardiac arrhythmia, unspecified Office Visit 12/23/2018 [facility] Elif Mary, I42.9 Cardiomyopathy, 10:46a Assoc,beth [employer] unspecified Hospitalists R07.9 Chest pain, unspecified Office Visit 12/22/2018 [place] Danny Boyle R94.31 Abnormal 2:00p Cardiology Of Tom Melchor, electrocardiogram [facility] [[facility] [EKG] R07.89 Other chest pain I42.9 Cardiomyopathy, unspecified Office Visit 12/22/2018 [facility] Nino I42.9 Cardiomyopathy, 10:46a Assoc,PRECIOUS [place] unspecified Hospitalists R07.9 Chest pain, unspecified R06.02 Shortness of breath Office Visit 12/22/2018 11:00a [facility] Internal Ingrid Senner, R06.02 Shortness of Medicine - Suite DO breath R F17.290 Nicotine dependence, other tobacco product, uncomplicated Assessments Date Code Description Provider 06/10/2019 M18.11 Unilateral primary osteoarthritis of Roberta Varner M.D. first carpometacarpal joint, right hand 06/10/2019 G56.01 Carpal tunnel syndrome, right upper Roberta Varner M.D. limb 06/10/2019 G56.21 Lesion of ulnar nerve, right upper Roberta Varner M.D. limb 05/29/2019 I42.9 Cardiomyopathy, unspecified [facility] 05/29/2019 I42.9 Cardiomyopathy, unspecified Ica Pacer Schedule 05/29/2019 I50.9 Heart failure, unspecified [facility] 05/29/2019 I50.9 Heart failure, unspecified Ica Pacer Schedule 05/29/2019 Z95.810 Presence of automatic (implantable) Danny Melchor M.D., [facility], cardiac defibrillator [facility] 05/29/2019 Z95.810 Presence of automatic (implantable) [...] 05/12/2019 I42.9 Cardiomyopathy, unspecified Danny Melchor M.D., [facility], [facility] 05/12/2019 R94.31 Abnormal electrocardiogram [ECG] Danny Melchor M.D., [facility], [EKG] [facility] 04/30/2019 F41.9 Anxiety disorder, unspecified Criss [...] 03/25/2019 I42.9 Cardiomyopathy, unspecified Danny Melchor M.D., [facility], [facility] 03/17/2019 I42.9 Cardiomyopathy, unspecified Danny Melchor M.D., [facility], [facility] 03/17/2019 I42.9 Cardiomyopathy, unspecified Traveling ECHO 1 02/27/2019 R05 Cough Anni Varn, N.P. 02/27/2019 K21.9 Gastro-esophageal reflux disease Anni Varn, N.P. without esophagitis 02/06/2019 J06.9 Acute upper respiratory infection, Milla Calero MD unspecified 01/30/2019 R05 Cough Criss Lau M.D. 12/30/2018 I42.9 Cardiomyopathy, unspecified Danny Melchor M.D., [facility], [facility] 12/30/2018 I77.810 Thoracic aortic ectasia Danny Melchor M.D., [facility], [facility] 12/30/2018 R94.31 Abnormal electrocardiogram [ECG] Danny Melchor M.D., [facility], [EKG] [facility] 12/26/2018 R07.9 Chest pain, unspecified Criss Lau M.D. 12/26/2018 I45.4 Nonspecific intraventricular block Criss Lau M.D. 12/26/2018 I49.9 Cardiac arrhythmia, unspecified Criss Lau M.D. 12/23/2018 R94.31 Abnormal electrocardiogram [ECG] Madhavi Chaudhary M.D. [EKG] 12/23/2018 R07.9 Chest pain, unspecified Catherine Bartlett MD, [facility], [facility] 12/23/2018 I42.9 Cardiomyopathy, unspecified Elif Mary, [facility] 12/23/2018 R07.9 Chest pain, unspecified Elif Mary, [facility] [facility] 12/22/2018 R94.31 Abnormal electrocardiogram [ECG] Madhavi Chaudhary M.D. [EKG] 12/22/2018 R94.31 Abnormal electrocardiogram [ECG] Danny Melchor M.D., [facility], [EKG] [facility] 12/22/2018 R07.89 Other chest pain Danny Melchor M.D., [facility], [facility] 12/22/2018 I42.9 Cardiomyopathy, unspecified Danny Melchor M.D., [facility], [facility] 12/22/2018 I42.9 Cardiomyopathy, unspecified PRE[facility]OUS [facility] 12/22/2018 R06.02 Shortness of breath Ingrid Hellen, DO 12/22/2018 R07.9 Chest pain, unspecified [facility] 12/22/2018 F17.290 Nicotine dependence, other tobacco Ingrid Senkatya, DO product, uncomplicated 12/22/2018 R06.02 Shortness of breath PRECIUOS [facility] Plan of Treatment Future Appointment(s):11/26/2019 10:20 am - Criss Lau M.D. at [facility]07/17/2019 1:00 pm - Danny Melchor M.D., [facility], [facility] at [facility]09/04/2019 9:45 am - Donald Alvarado M.D. at [facility]106/10/2019 - Roberta Varner M.D.M18.11 Unilateral primary osteoarthritis of first carpometacarpal joint, right handNew Medication: Meloxicam 7.5 mg - 1 by mouth every day as needed for pain If 1 pill does not work, take 2 pillsNew Xrays:Thumb Right, Ordered: 06/10/19New Orders:EMG w/ Nerve Conduct Study, Upper, Ordered: 06/10/19Follow up:Follow up: after testing is ptycttnrvH28.01 Carpal tunnel syndrome, right upper limbG56.21 Lesion of ulnar nerve, right upper limb Functional Status Description No Information Available Mental Status Description No Information Available Referrals Refer to Dr Reason for Referral Status Appt Date Steven Ordoñez MD Dear Dr. Ordoñez, pt has persistent severe Sent non-ischemic CMP. Please evaluate Ms. Elias for ICD for primary prophylaxis for SCD. [address] [place] [address] [phone]
--- OUTSIDE RECORDS SUMMARY | 2019-06-25 23:20 | XMS REPORT | Continuity of Care Document ---
:1960 External Reference #:[id number] Author Name Roberta Varner M.D. (transmitted by agent of provider Isela Larkin) Address [address] [place] [id number] Care Team Providers Name Role Phone Criss Lau MD - Internal Care Team Information News Assignment Editor Medicine Luda Craig MD - Obstetrics & Care Team Information News Assignment Editor Gynecology [facility] Betancourt M.D. - Single Care Team Information News Assignment Editor [phone] [facility] [place] - Mental Care Team Information News Assignment Editor [phone] [facility] ENT - Clinic/Center Care Team Information News Assignment Editor [phone] Roland Rey MD - Care Team Information News Assignment Editor [phone] Otolaryngology Brittaney Altamirano O.D. - Utilities Ground Worker Care Team Information News Assignment Editor [phone] Problems Active Problems Provider Date Type 2 diabetes mellitus Felicity Negrete M.D., FACP Onset: 07/13/2010 Pure hypercholesterolemia Felicity Negrete M.D., FACP Onset: 07/13/2010 Benign essential hypertension Felicity Negrete M.D., FACP Onset: 07/13/2010 Migraine without aura, not refractory Cherelle Francis M.D. Onset: 2014 Cardiomyopathy Danny Melchor M.D., [facility], Onset: 12/30/2018 FASNC Social History Type [...] Danny Melchor, 05/12/2019 2mg Tablets day M.D., [facility], FASTX Venlafaxine HCL ER 1 by mouth every [...] B12 1 by mouth every 30tabs R26.81 [facility] Sid, 02/11/2017 1000mcg day M.D. Tablets ER Walker 4 wheels, 1units R26.81 [facility] Sid, 01/11/2017 [facility] brakes, seat and M.D. basket. r26.81 G62.9 Miralax 17 gm every day 510units R10.13 [facility] Sid, 11/17/2015 3350NF Powder mixed w/ 8 oz M.D. water/juice as needed Gabapentin take one capsule by 90caps E11.40 [facility] Sid, 02/25/2015 100mg mouth two times a [...] CPT Code Status Date Vaccine Lot # [id number] Given 01/17/2018 Influenza Virus Vaccine, Quadrivalent, Split, [id number] Preservative Free 00681 Given 02/16/2016 Influ Virus Vaccine, Quadrivalent, Split Virus, [id number] [address] Given 01/21/2015 Influenza Virus Vaccine, Quadrivalent, Split, [id number] Preservative Free 61096 Given 01/24/2014 Flu Vaccine Split Virus Preservative Free For Indiv 3Yr Older 86159 Given 11/28/2011 Pneumonia Vaccine [id number] Given 03/21/2011 Afluria Vaccine [id number] 76870 Given 12/30/2009 Influenza Virus 3Yrs & Over 26917 Given 02/28/2009 Influenza Virus Vaccine, Pandemic Formulation 93733 Given 02/24/2009 Influenza Virus 3Yrs & Over 46518 Given 02/26/2008 Influenza Virus 3Yrs & Over 72852 Given 02/26/2008 Influenza Virus 3Yrs & Over 03223 Given 03/13/2007 Influenza Virus 3Yrs & Over 58358 Given 03/13/2007 Influenza Virus 3Yrs & Over 46769 Given 02/22/2006 Influenza Virus 3Yrs & Over [...] Result H/L Range Note Laboratory test 05/28/2019 [facility] In House Hemoglobin A1c 6.2 5-7 finding Basic Metabolic 05/23/2019 [facility] Sodium 140 mmol/L Normal 135-145 Panel [address] [employer] [place], [place] [id number] [phone] Potassium 4.2 mmol/L Normal 3.5-5.0 Chloride 101 mmol/L Normal 101-111 Co2 Carbon Dioxide 29 mmol/L Normal 22-32 Anion Gap 10 mmol/L Normal 2-11 Glucose 103 mg/dL High 70-100 Blood Urea Nitrogen 17 mg/dL Normal 6-24 Creatinine 0.80 mg/dL Normal 0.51-0.95 BUN/Creatinine Ratio 21.3 High 8-20 Calcium 9.7 mg/dL Normal 8.6-10.3 Egfr Non- 73.4 >60 Egfr 88.8 >60 1 Basic Metabolic 05/05/2019 [facility] Sodium 139 mmol/L Normal 135-145 Panel [address] [place] [address] [phone] Potassium 4.2 mmol/L Normal 3.5-5.0 Chloride 101 mmol/L Normal 101-111 Co2 Carbon Dioxide 28 mmol/L Normal 22-32 Anion Gap 10 mmol/L Normal 2-11 Glucose 105 mg/dL High 70-100 Blood Urea Nitrogen 13 mg/dL Normal 6-24 Creatinine 0.72 mg/dL Normal 0.51-0.95 BUN/Creatinine Ratio 18.1 Normal 8-20 Calcium 9.4 mg/dL Normal 8.6-10.3 Egfr Non- 82.9 >60 Egfr 100.3 >60 2 Comp Metabolic 04/28/2019 [facility] Sodium 137 mmol/L Normal 135-[address] [place] [address] [phone] Potassium 3.6 mmol/L Normal 3.5-5.0 Chloride 106 [...] Egfr 109.0 >60 3 Laboratory test 04/28/2019 [facility] Troponin-I 0.01 <0.03 [address] (TnI) ng/[place] [address] [phone] CBC Auto Diff 04/28/2019 [facility] White Blood 7.1 Normal 3.5 -10.[address] Count 10^3/[place] [address] [phone] Red Blood Count 4.76 10^6/uL Normal 3.70-4.87 [...] Red Blood Cells % 0.0 Laboratory 04/28/2019 [facility] B-Type 443 pg/mL High <=[address] [place] [address] Peptide BNP [phone] Laboratory 04/27/2019 [facility] D Dimer 610 ng/mL High Less [address] Quantitative Than 230 [place] [address] [phone] CKMB 04/27/2019 [facility] CKMB ng/mL 0.8 ng/mL Normal 0.6- 6.[address] [place] [address] [phone] Laboratory 04/27/2019 [facility] C Reactive 24.11 High <8.[address] Protein mg/[place] [address] [phone] Comp Metabolic 04/27/2019 [facility] Sodium 140 Normal 135- [address] mmol/[place] [address] [phone] Potassium 3.7 mmol/L Normal 3.5-5.0 Chloride 105 [...] Egfr 105.4 >60 6 Laboratory test 04/27/2019 [facility] Lactic Acid 0.9 mmol/L Normal 0.5-2.0 [address] [place] [address] [phone] B-Type Natriuretic Peptide BNP 359 pg/mL High <=100 Troponin-I (TnI) 0.01 ng/mL <0.03 8 Urinalysis Profile 04/27/2019 [facility] Urine Color Straw [address] [place] [address] [phone] Urine Appearance Clear Urine Specific [place] 1.002 Low 1.010-1.030 Urine pH 6.0 Normal 5-9 Urine Urobilinogen Negative Negative Urine Ketones Negative Negative Urine Protein Negative Negative Urine Leukocytes Negative Negative Urine Blood 1+ Abnormal Negative Urine Nitrite Negative Negative Urine Bilirubin Negative Negative Urine Glucose Negative Negative Urine White Blood Cell Absent Absent Urine Red Blood Cell Trace(0-2/hpf) Absent Urine Bacteria Absent Absent CBC Auto 04/27/2019 [facility] White Blood 6.1 10^3/uL Normal 3.5-10.[address] [place] [address] [phone] Red Blood Count 4.83 10^6/uL Normal 3.70-4.87 [...] Red Blood Cells % 0.1 Laboratory 04/27/2019 [facility] Troponin-I 0.01 ng/mL <0.03 9 test finding [address] (TnI) [place] [address] [phone] Pre Cath Panel 04/16/2019 [facility] Partial 37.2 Normal 26.0- 38. [address] Thrombo Time seconds 0 [place] [address] PTT [phone] CBC Auto Diff 04/16/2019 [facility] White Blood 7.6 Normal 3.5 -10.[address] Count 10^3/[place] [address] [phone] Red Blood Count 5.14 10^6/uL High 3.70-4.87 [...] Red Blood Cells % 0.2 Inr/Protime 04/16/2019 [facility] Inr 1.03 Normal 0.82-1.[address] [place] [address] [phone] Basic Metabolic 04/16/2019 [facility] Sodium 140 mmol/L Normal 135-[address] [place] [address] [phone] Potassium 4.3 mmol/L Normal 3.5-5.0 Chloride 104 mmol/L Normal 101-111 Co2 Carbon Dioxide 25 mmol/L Normal 22-32 Anion Gap 11 mmol/L Normal 2-11 Glucose 94 mg/dL Normal 70-100 Blood Urea Nitrogen 10 mg/dL Normal 6-24 Creatinine 0.67 mg/dL Normal 0.51-0.95 BUN/Creatinine Ratio 14.9 Normal 8-20 Calcium 9.8 mg/dL Normal 8.6-10.3 Egfr Non- 90.1 >60 Egfr 109.0 >60 12 Urine Culture And 04/03/2019 [facility] Urine Culture SEE RESULT [address] BEL[address] [place], [place] [phone] Urine Drug SCR ED 04/03/2019 [facility] Urine None None & [facility] [address] [place]mphetamine [place] [address] Screen [phone] Urine Barbiturates Screen None Detected None Detect Urine Benzodiazepine Screen None Detected None Detect Urine Cannabinoids Screen None Detected None Detect Urine Cocaine Screen None Detected None Detect Urine Opiates Screen None Detected None Detect Urine Phencyclidine Screen None Detected None Detect 14 Laboratory test 04/03/2019 [facility] Acetaminophen < 15 g/mL 15 finding [address] [place] [address] [phone] Alcohol < 10 mg/dL Normal <10 Salicylate < 2.50 mg/dL <30 Comp Metabolic 04/03/2019 [facility] Sodium 138 mmol/L Normal 135-[address] [place] [address] [phone] Potassium 3.7 mmol/L Normal 3.5-5.0 Chloride 106 [...] Egfr 102.3 >60 16 Urinalysis Profile 04/03/2019 [facility] Urine Color Yellow [address] [place] [address] [phone] Urine Appearance Clear Urine Specific [place] 1.002 Low 1.010-1.030 Urine pH 6.0 Normal [...] Cell Present Abnormal Absent CBC Auto 04/03/2019 [facility] White Blood 8.2 10^3/uL Normal 3.5-10.[address] [place] [address] [phone] Red Blood Count 5.45 10^6/uL High 3.70-4.87 [...] Blood Cells % 0.1 Laboratory test 03/26/2019 [facility] Troponin-I (TnI) 0.01 ng/ mL <0.03 [address] [place] [address] [phone] B-Type Natriuretic Peptide BNP 183 pg/mL High <=100 Basic Metabolic 03/26/2019 [facility] Sodium 140 mmol/L Normal 135-[address] [place] [address] [phone] Potassium 4.1 mmol/L Normal 3.5-5.0 Chloride 105 mmol/L Normal 101-111 Co2 Carbon Dioxide 26 mmol/L Normal 22-32 Anion Gap 9 mmol/L Normal 2-11 Glucose 95 mg/dL Normal 70-100 Blood Urea Nitrogen 13 mg/dL Normal 6-24 Creatinine 0.74 mg/dL Normal 0.51-0.95 BUN/Creatinine Ratio 17.6 Normal 8-20 Calcium 9.6 mg/dL Normal 8.6-10.3 Egfr Non- 80.6 >60 Egfr 97.5 >60 18 CBC Auto 03/26/2019 [facility] White Blood 6.5 10^3/uL Normal 3.5-10.[address] [place] [address] [phone] Red Blood Count 5.28 10^6/uL High 3.70-4.87 [...] Red Blood Cells % 0.0 Laboratory 03/26/2019 [facility] Partial 40.3 High 26.0-38.0 test finding [address] [address] Time PTT [phone] Inr/Protime 03/26/2019 [facility] Inr 1.03 Normal 0.82-1.[address] [place] [address] [phone] Laboratory 03/26/2019 [facility] Troponin-I 0.01 ng/mL <0.03 20 test finding [address] (TnI) [place], [place] [address] [phone] CBC Auto Diff 01/28/2019 [facility] White Blood 9.7 10^3/uL Normal 3.5-10.[address] [place] [address] [phone] Red Blood Count 5.32 10^6/uL High 3.70-4.87 [...] Blood Cells % 0.1 Laboratory test 01/28/2019 [facility] B-Type 179 pg/mL High <= [address] [place] [address] Peptide BNP [phone] Laboratory test 01/28/2019 [facility] Troponin-I 0.02 <0.04 [address] (TnI) ng/[place] [address] [phone] Comp Metabolic 01/28/2019 [facility] Sodium 133 Low 135-[address] mmol/L [place], [place] [address] [phone] Potassium 4.4 mmol/L Normal 3.5-5.0 Chloride 102 [...] >60 Egfr 85.4 >60 22 Laboratory 01/28/2019 [facility] Troponin-I 0.03 <0.04 23 test finding [address] (TnI) ng/[place] [address] [phone] CBC Auto Diff 01/09/2019 [facility] White Blood 6.5 Normal 3.5 -10.[address] Count 10^3/uL [place], [place] [address] [phone] Red Blood Count 4.84 10^6/uL Normal 3.70-4.87 [...] Blood Cells % 0.0 Laboratory test 01/09/2019 [facility] C Reactive 5.85 mg/L Normal <8.[address] [place] [address] [phone] Liver Function 01/09/2019 [facility] Total Protein 7.1 g/dL Normal 6.4-8.[address] [place] [address] [phone] Albumin 3.9 g/dL Normal 3.2-5.2 Globulin 3.2 g/dL Normal 2-4 Albumin/Globulin Ratio 1.2 Normal 1-3 Total Bilirubin 1.20 mg/dL High 0.2-1.0 Direct Bilirubin 0.20 mg/dL High 0.03-0.18 Indirect Bilirubin 1.0 mg/dL Normal 0.3-1.0 Alkaline Phosphatase 129 U/L High 34-104 Alt 12 U/L Normal 7-52 Ast 12 U/L Low 13-39 Laboratory test 01/09/2019 [facility] GGTP 13 U/L Normal 9- 64.[address] [place] [address] [phone] Laboratory test 12/26/2018 [facility] Troponin-I 0.02 <0.[address] (TnI) ng/[place] [address] [phone] Comp Metabolic 12/26/2018 [facility] Sodium 138 Normal 135- [address] mmol/[place] [address] [phone] Potassium 3.7 mmol/L Normal 3.5-5.0 Chloride 106 [...] Egfr 117.4 >60 25 CBC Auto 12/26/2018 [facility] White Blood 7.8 10^3/uL Normal 3.5-10.[address] [place] [address] [phone] Red Blood Count 4.82 10^6/uL Normal 3.70-4.87 [...] Red Blood Cells % 0.1 Laboratory 12/26/2018 [facility] Lactic Acid 0.9 mmol/L Normal 0.5-2.0 26 test finding [address] [place] [address] [phone] Inr/Protime 12/22/2018 [facility] Inr 1.03 Normal 0.82-1.[address] [place] [address] [phone] Laboratory 12/22/2018 [facility] Partial 38.7 High 26.0-38.0 test finding [address] [place] [address] [place] [address] Time PTT [phone] D Dimer Quantitative 453 ng/mL High Less Than 230 28 Comp Metabolic 12/22/2018 [facility] Sodium 139 mmol/L Normal 135-[address] [place] [phone] Potassium 3.8 mmol/L Normal 3.5-5.0 Chloride 107 [...] Egfr 129.2 >60 29 Laboratory test 12/22/2018 [facility] Troponin-I (TnI) 0.03 ng/ mL <0.04 [address] [place] [address] [phone] B-Type Natriuretic Peptide BNP 248 pg/mL High <=100 CBC Auto 12/22/2018 [facility] White Blood 7.1 10^3/uL Normal 3.5-10.[address] [place] [address] [phone] Red Blood Count 4.86 10^6/uL Normal 3.70-4.87 [...] immediately to secondary confirmatory testing. Using the [employer] DxI 800 Access Immunoassay systems, the 99th [...] 5 Kidney failure <15 (or dialysis) 7 [facility] Severe Sepsis and Septic Shock Management Bundle Measure requires all lactic acids initially measuring >2.0 mmol/L be repeated. 8 Troponin-I testing on Plasma Separator Tubes (PST) has a known false positive rate of 0.20-0.40%. All positive troponins reflex immediately to secondary confirmatory testing. Using the [employer] DxI 800 Access Immunoassay systems, the 99th percentile upper reference limit was demonstrated to be < 0.03 ng/mL. 9 Troponin-I testing on Plasma Separator Tubes (PST) has a known false positive rate of 0.20-0.40%. All positive troponins reflex immediately to secondary confirmatory testing. Using the [employer] DxI 800 Access Immunoassay systems, the 99th [...] [address]: Js Bradshaw MD Acct: [id number] Unit: [id number] AGE: 58 Location: ED Re04/03/19 SEX: F Status: DEP ER SPEC: [id number] ENRIQUE: 04/03/19-1316 [facility] [address]: Js Bradshaw MD REQ: [id number] RECD: 04/03/19 STATUS: [facility] DR: Criss Lau MD _ SOURCE: URINE SPDESC: ORDERED: Urine Culture Procedure Result Reported Site Urine Culture Final 04/04/19- 1007 ML Few Enterobacteriacae; possible contamination. * ML - Main Lab . END OF REPORT DEPARTMENT OF PATHOLOGY, [address] [place] [address] Roddy Villanueva M.D. Director [facility] # [id number] The urine specimen was tested at [...] immediately to secondary confirmatory testing. Using the [employer] DxI 800 Access Immunoassay systems, the 99th [...] immediately to secondary confirmatory testing. Using the [employer] DxI 800 Access Immunoassay systems, the 99th percentile upper reference limit was demonstrated to be < 0.03 ng/mL. 21 Troponin-I testing on Plasma Separator Tubes (PST) has a known false positive rate of 0.20-0.40%. All positive troponins reflex immediately to secondary confirmatory testing. Using the [employer] DxI 800 Access Immunoassay systems, the 99th [...] failure <15 (or dialysis) 30 Verbal to [id number] by [id number] at 1446 on 12/22/18. Results read back accurately. Corrected Report. Result TnIDx:0.39 Called to [id number] at: 13:52:23 by:[email or web address] Read back by: [id number] CORRECTED REPORT --- Corrected on 12/22/18 1446 --- Troponin I previously reported as: 0.39 *C ng/mL Result TnIDx:0.39 Called to [id number] at: 13:52:23 by:[email or web address] Read back by: [id number] Troponin-I testing on Plasma Separator Tubes (PST) has a known false positive rate of 0.20-0.40%. All positive troponins reflex immediately to secondary confirmatory testing. Using the [employer] Access Immunoassay systems, the 99th percentile upper reference limit was demonstrated to be < 0.03 ng/mL. Procedures Date Code Description Status 05/29/2019 21787 Interrogation Implant Cardiovasc Monitor System Incl Completed Analysis Int 05/29/2019 32580 Interrogation Implant Cardiovasc Monitor System Incl Completed Analysis Int 05/29/2019 74334 Icd eval w/iterative adjment single lead Icd Completed 05/29/2019 73485 Icd eval w/iterative adjment single lead Icd Completed 05/12/2019 30402 EKG Tracing & Interpretation Completed 04/20/2019 39781 Insert/Replace Icd W/Generator Completed 03/17/2019 62641 ECHO Transthoracic, Real-Time 2D With Doppler And Completed Color Flow 03/17/2019 39087 ECHO Transthoracic, Real-Time 2D With Doppler And Completed Color Flow 12/30/2018 22625 EKG Tracing & Interpretation Completed 12/26/2018 44940 EKG Tracing & Interpretation Completed 12/23/2018 06628 EKG, Interpretation Only Completed 12/23/2018 87131 Stress Test Supervsn W/Out I/R Completed 12/23/2018 73035 Treadmill Interp/Report Only Completed 12/23/2018 18273 ECHO Transthorasic Realtime 2D W Doppler & Color Flow Completed Hosp 12/22/2018 49130 ECHO Transthorasic Realtime 2D W Doppler & Color Flow Completed Hosp 12/22/2018 39502 EKG, Interpretation Only Completed 12/22/2018 54794 EKG Tracing & Interpretation Completed 09/26/2018 [id number] Diabetic Retinal Eye Exam Completed 08/01/2018 29472728 Mammogram Completed 03/11/2018 74494691 Colonoscopy Completed 09/26/2017 045887608 Diabetic Retinal Eye Exam Completed 03/15/2017 619021155 Diabetic Retinal Eye Exam Completed 12/07/2016 89634373 Mammogram Completed 09/07/2016 272800772 Diabetic Retinal Eye Exam Completed 12/02/2015 62423160 Mammogram Completed 11/19/2014 69704656 Mammogram Completed 06/28/2014 369954617 Diabetic Retinal Eye Exam Completed 11/20/2013 76310218 Mammogram Completed 09/09/2013 242406767 Diabetic Retinal Eye Exam Completed 11/13/2012 87822495 Mammogram Completed 08/20/2012 321868819 Diabetic Retinal Eye Exam Completed 05/15/2012 66181546 Mammogram Completed 12/26/2011 38925073 Mammogram Completed 12/13/2011 98745908 Mammogram Completed 08/31/2010 92825438 Colonoscopy Completed 11/13/2007 12700977 Mammogram Completed 05/14/2007 27525226 Mammogram Completed 10/18/2006 36755765 Mammogram Completed 05/07/2003 81668504 Mammogram Completed Medical Devices Description No Information Available Encounters Type Date Location Provider Dx Diagnosis Office Visit 06/10/2019 [facility] Roberta M18.11 Unil primary 8:15a at [place] Varner M.D. osteoarth of first carpometacarp joint, r hand G56.01 Carpal tunnel syndrome, right upper limb G56.21 Lesion of ulnar nerve, right upper limb Office Visit 05/12/2019 2[place]p [place] I42.9 Cardiomyopathy, Cardiology Of Tom Melchor, unspecified [facility] FACC, FASNC R94.31 Abnormal electrocardiogram [ECG] [EKG] Office Visit 04/30/2019 10:40a [facility] Internal Criss F41.9 Anxiety disorder, Medicine - Cheryl Lau M.D. unspecified Office Visit 04/28/2019 1:00p [place] [facility] Steven Delgado I42.9 Cardiomyopathy, Of [facility] AT [facility] Tom Ordoñez unspecified Z95.810 Presence of automatic (implantable) cardiac defibrillator I50.9 Heart failure, unspecified Office Visit 04/07/2019 [place] Steven Delgado I42.9 Cardiomyopathy, 11:30a Cardiology Shasta Ordoñez M.D. unspecified [facility] R94.31 Abnormal electrocardiogram [ECG] [EKG] Office Visit 03/25/2019 [place] Danny Boyle I42.9 Cardiomyopathy, 10:15a Cardiology Shasta Melchor M.D., unspecified [facility] FACC, FASNC Office Visit 02/27/2019 [facility] Internal Anni Vieira R05 Cough 3:00p [facility] K21.9 Gastro-esophageal reflux disease without esophagitis Office Visit 02/06/2019 3:40p [facility] Internal Milla Calero MD J06.9 Acute upper [facility] respiratory infection, unspecified Office Visit 01/30/2019 2:00p [facility] Internal Criss R05 Cough Medicine - Cheryl Lau M.D. Office Visit 12/30/2018 1:15p [place] [facility] Danny Boyle I42.9 Cardiomyopathy, Of Marty Melchor M.D., unspecified [facility] I77.810 Thoracic aortic ectasia R94.31 Abnormal electrocardiogram [ECG] [EKG] Office Visit 12/26/2018 2:00p [facility] Internal Criss R07.9 Chest pain, Medicine - Tom Lau unspecified Ccmob I45.4 Nonspecific intraventricular block I49.9 Cardiac arrhythmia, unspecified Office Visit 12/23/2018 [facility] Elif Mary, I42.9 Cardiomyopathy, 10:46a Assoc,beth [employer] unspecified Hospitalists R07.9 Chest pain, unspecified Office Visit 12/22/2018 [place] Danny Boyle R94.31 Abnormal 2:00p Cardiology Of Tom Melchor, electrocardiogram [facility] [[facility]G] [EKG] R07.89 Other chest pain I42.9 Cardiomyopathy, unspecified Office Visit 12/22/2018 [facility] Nino I42.9 Cardiomyopathy, 10:46a Assoc,PRECIOUS [place] unspecified Hospitalists R07.9 Chest pain, unspecified R06.02 Shortness of breath Office Visit 12/22/2018 11:00a [facility] Internal Ingrid Senner, R06.02 Shortness of [...] 05/29/2019 I42.9 Cardiomyopathy, unspecified Danny Melchor M.D., [facility] 05/29/2019 I42.9 Cardiomyopathy, unspecified Ica Pacer Schedule 05/29/2019 I50.9 Heart failure, unspecified Danny Melchor M.D., [facility] 05/29/2019 I50.9 Heart failure, unspecified Ica Pacer Schedule 05/29/2019 Z95.810 Presence of automatic (implantable) Danny Melchor M.D., [facility], cardiac defibrillator [facility] 05/29/2019 Z95.810 Presence of automatic (implantable) [...] 05/12/2019 I42.9 Cardiomyopathy, unspecified Danny Melchor M.D., [facility], [facility] 05/12/2019 R94.31 Abnormal electrocardiogram [ECG] Danny Melchor M.D., [facility], [EKG] [facility] 04/30/2019 F41.9 Anxiety disorder, unspecified Criss [...] 03/25/2019 I42.9 Cardiomyopathy, unspecified Danny Melchor M.D., [facility], [facility] 03/17/2019 I42.9 Cardiomyopathy, unspecified Danny Melchor M.D., [facility], [facility] 03/17/2019 I42.9 Cardiomyopathy, unspecified Traveling ECHO 1 02/27/2019 R05 Cough Anni Varn, N.P. 02/27/2019 K21.9 Gastro-esophageal reflux disease Anni Varn, N.P. without esophagitis 02/06/2019 J06.9 Acute upper respiratory infection, Milla Calero MD unspecified 01/30/2019 R05 Cough Criss Lau M.D. 12/30/2018 I42.9 Cardiomyopathy, unspecified Danny Melchor M.D., [facility], [facility] 12/30/2018 I77.810 Thoracic aortic ectasia Danny Melchor M.D., [facility], [facility] 12/30/2018 R94.31 Abnormal electrocardiogram [ECG] Danny Melchor M.D., [facility], [EKG] [facility] 12/26/2018 R07.9 Chest pain, unspecified Criss Lau M.D. 12/26/2018 I45.4 Nonspecific intraventricular block Criss Lau M.D. 12/26/2018 I49.9 Cardiac arrhythmia, unspecified Criss Lau M.D. 12/23/2018 R94.31 Abnormal electrocardiogram [ECG] Madhavi Chaudhary M.D. [EKG] 12/23/2018 R07.9 Chest pain, unspecified Catherine Bartlett MD, [facility], [facility] 12/23/2018 I42.9 Cardiomyopathy, unspecified Elif Mary, [employer] 12/23/2018 R07.9 Chest pain, unspecified Elif Mary, [employer] 12/22/2018 R94.31 Abnormal electrocardiogram [ECG] Madhavi Chaudhary M.D. [EKG] 12/22/2018 R94.31 Abnormal electrocardiogram [ECG] Danny Melchor M.D., [facility], [EKG] [facility] 12/22/2018 R07.89 Other chest pain Danny Mlechor M.D., [facility], [facility] 12/22/2018 I42.9 Cardiomyopathy, unspecified Danny Melchor M.D., [facility], [facility] 12/22/2018 I42.9 Cardiomyopathy, unspecified [facility] 12/22/2018 R06.02 Shortness of breath Ingrid Hellen, DO 12/22/2018 R07.9 Chest pain, unspecified [facility] 12/22/2018 F17.290 Nicotine dependence, other tobacco Ingrid Senkatya, DO product, uncomplicated 12/22/2018 R06.02 Shortness of breath [facility] Plan of Treatment Future Appointment(s):11/26/2019 10:20 am - Criss Lau M.D. at [facility] Internal Medicine - [facility]07/17/2019 1:00 pm - Danny Melchor M.D., [facility], [facility] at [place] [facility]09/04/2019 9:45 am - Donald Alvarado M.D. at [id number]/10/2019 - Roberta Varner M.D.M18.11 Unilateral primary osteoarthritis of first carpometacarpal joint, right handNew Medication: Meloxicam 7.5 mg - 1 by mouth every day as needed for pain If 1 pill does not work, take 2 pillsNew Xrays:Thumb Right, Ordered: 06/10/19New Orders:EMG w/ Nerve Conduct Study, Upper, Ordered: 06/10/19Follow up:Follow up: after testing is ikynqblepD79.01 Carpal tunnel syndrome, right upper limbG56.21 Lesion of ulnar nerve, right upper limb Functional Status Description No Information Available Mental Status Description No Information Available Referrals Refer to Dr Reason for Referral Status Appt Date Steven Ordoñez MD Dear Dr. Ordoñez, pt has persistent severe Sent non-ischemic CMP. Please evaluate Ms. Elias for ICD for primary prophylaxis for SCD. [address] [place] [address] [phone]
--- OUTSIDE RECORDS SUMMARY | 2019-06-25 23:20 | XMS REPORT | Continuity of Care Document ---
:1960 External Reference #:[id number] Author Name Danny Melchor M.D., [facility], [facility] (transmitted by agent of provider Yanet Hale) Address [address] [place] [address] Care Team Providers Name Role Phone Criss Lau MD - Internal Care Team Information Store Promoter Medicine Luda Craig MD - Obstetrics & Care Team Information Store Promoter [phone] Gynecology carissaDiana Betancourt M.D. - Single Care Team Information Store Promoter [facility] - Mental Care Team Information Store Promoter [facility] - Clinic/Center Care Team Information Store Promoter [phone] Roland Rey MD - Care Team Information Store Promoter [phone] Otolaryngology Brittaney Altamirano O.D. - [employer] Director Care Team Information Store Promoter Problems Active Problems Provider Date Type 2 diabetes mellitus Felicity Negrete M.D., [facility] Onset: 07/13/2010 Pure hypercholesterolemia Felicity Negrete M.D., FACP Onset: 07/13/2010 Benign essential hypertension Felicity Negrete M.D., FACP Onset: 07/13/2010 Migraine without aura, not refractory Cherelle Francis M.D. Onset: 2014 Cardiomyopathy Danny Melchor M.D., [facility], Onset: 12/30/2018 [facility] Social History Type Date Description Comments Sex [...] Use Denies Drug Use Smoking Status Reviewed: 05/12/19 Patient is a former pt was vaping but smoker stop on 04/07/19 Exercise Type/Frequency Does not exercise Allergies, Adverse Reactions, Alerts Active Allergies Reaction Severity Comments Date Penicillin swelling 11/02/2009 Bee Sting 11/02/2009 Losartan cough 07/25/2015 Lisinopril cough 07/25/2015 Clindamycin sore throat 04/28/2019 Medications Active Medications SIG Qnty Indications Ordering Provider Date Bumetanide 1 tablet once a 90tabs I42.9 Danny Melchor, 05/12/2019 2mg Tablets day M.D., OLY, FASIESHA Venlafaxine HCL ER 1 by mouth every 30caps Criss Lau, 04/30/2019 75mg day M.D. Caps ER 24HR Famotidine 1 by mouth twice 60tabs K21.9 Anni Varn, 02/27/2019 20mg Tablets a day N.P. Epipen 2-Clifford use as directed 2units Criss Lau, 01/30/2019 M.DTroy 0.3mg/0.3ML Solution Auto-Inject Aldactone take one half 90tabs I42.9 Danny Melchor, 12/30/2018 25mg Tablets tablet (12.5 mg) M.D., OLY, AMY per day Atorvastatin Calcium 1 by mouth every 90tabs E78.5 Cameron Rasheed MD 2018 day 40mg Tablets Carvedilol 1 by mouth twice 180tabs Criss Lau, 12/24/2018 6.25mg a day M.D. Tablets Aspirin Ec Low Dose Every Day Unknown 12/22/[address] Ferrous Gluconate take 1 tablet by 30tabs [...] 4 wheels, 1units R26.81 Crissfelisha Lau, 01/11/2017 [facility] brakes, seat and M.D. basket. r26.81 G62.9 Miralax 17 gm every day 510units R10.13 Criss Cotton, 11/17/2015 3350NF Powder mixed w/ 8 oz M.D. water/juice as needed Gabapentin take one capsule by 90caps E11.40 Criss Sid, 02/25/2015 100mg mouth two times a M.D. Capsules day History Medications Bumetanide one a day 30tabs I42.9 Steven D. 04/28/2019 - 1mg Tablets Brand, M.D. 05/12/2019 Clindamycin HCL Three Times 9caps Unknown [...] CPT Code Status Date Vaccine Lot # [id number] Given 01/17/2018 Influenza Virus Vaccine, Quadrivalent, Split, [id number] Preservative Free 29069 Given 02/16/2016 Influ Virus Vaccine, Quadrivalent, Split Virus, [id number] [address] Given 01/21/2015 Influenza Virus Vaccine, Quadrivalent, Split, [id number] Preservative Free 83706 Given 01/24/2014 Flu Vaccine Split Virus Preservative Free For Indiv 3Yr Older 07378 Given 11/28/2011 Pneumonia Vaccine [id number] Given 03/21/2011 Afluria Vaccine [id number] 39559 Given 12/30/2009 Influenza Virus 3Yrs & Over 22419 Given 02/28/2009 Influenza Virus Vaccine, Pandemic Formulation 12908 Given 02/24/2009 Influenza Virus 3Yrs & Over 56042 Given 02/26/2008 Influenza Virus 3Yrs & Over 78226 Given 02/26/2008 Influenza Virus 3Yrs & Over 10244 Given 03/13/2007 Influenza Virus 3Yrs & Over 49964 Given 03/13/2007 Influenza Virus 3Yrs & Over 03362 Given 02/22/2006 Influenza Virus 3Yrs & Over Vital Signs Date Vital Result Comment 05/12/2019 1:47pm Height 63 inches 5'3" Weight 176.00 lb with shoes Heart Rate 68 /min BP Systolic Sitting 90 mmHg Rue lg cuff BP Diastolic Sitting 64 mmHg Rue lg cuff BP Systolic Standing 90 mmHg Rue lg cuff BP Diastolic Standing 62 mmHg Rue lg cuff Respiratory Rate 16 /min BMI (Body Mass Index) 31.2 kg/m2 Ejection Fraction 20-25% Echo 03/17/19 04/30/2019 10:43am Height 63 inches 5'3" Weight 179.00 lb Heart Rate 85 /min BP Systolic 134 mmHg BP Diastolic 82 mmHg O2 % BldC Oximetry 94 % BMI (Body Mass Index) 31.7 kg/m2 Results Test Acquired Date Facility Test Result H/L Range Note Basic Metabolic 05/05/2019 [facility] Sodium 139 mmol/L Normal 135-145 Panel [address] [place] [address] [phone] Potassium 4.2 mmol/L Normal 3.5-5.0 Chloride 101 mmol/L Normal 101-111 Co2 Carbon Dioxide 28 mmol/L Normal 22-32 Anion Gap 10 mmol/L Normal 2-11 Glucose 105 mg/dL High 70-100 Blood Urea Nitrogen 13 mg/dL Normal 6-24 Creatinine 0.72 mg/dL Normal 0.51-0.95 BUN/Creatinine Ratio 18.1 Normal 8-20 Calcium 9.4 mg/dL Normal 8.6-10.3 Egfr Non- 82.9 >60 Egfr 100.3 >60 1 Comp Metabolic 04/28/2019 [facility] Sodium 137 mmol/L Normal 135-145 Panel [address] [place] [address] [phone] Potassium 3.6 mmol/L Normal 3.5-5.0 Chloride 106 [...] Egfr Non- 90.1 >60 Egfr 109.0 >60 2 Laboratory test 04/28/2019 [facility] Troponin-I 0.01 <0.03 [address] (TnI) ng/[place] [address] [phone] CBC Auto Diff 04/28/2019 [facility] White Blood 7.1 Normal 3.5 -10.[address] Count 10^3/[place] [address] [phone] Red Blood Count 4.76 10^6/uL Normal 3.70-4.87 [...] Red Blood Cells % 0.0 Laboratory 04/28/2019 [facility] B-Type 443 pg/mL High <=100 test finding [address] [place] [address] Peptide BNP [phone] Laboratory 04/27/2019 [facility] D Dimer 610 ng/mL High Less 4 test finding [address] Quantitative Than 230 [place] [address] [phone] CKMB 04/27/2019 [facility] CKMB ng/mL 0.8 ng/mL Normal 0.6- 6.[address] [place] [address] [phone] Laboratory 04/27/2019 [facility] C Reactive 24.11 High <8.01 test finding [address] Protein mg/[place] [address] [phone] Comp Metabolic 04/27/2019 [facility] Sodium 140 Normal 135- [address] mmol/[place] [address] [phone] Potassium 3.7 mmol/L Normal 3.5-5.0 Chloride 105 [...] Egfr Non- 87.1 >60 Egfr 105.4 >60 5 Laboratory test 04/27/2019 [facility] Lactic Acid 0.9 mmol/L Normal 0.5-2.0 [address] [place] [address] [phone] B-Type Natriuretic Peptide BNP 359 pg/mL High <=100 Troponin-I (TnI) 0.01 ng/mL <0.03 7 Urinalysis Profile 04/27/2019 [facility] Urine Color Straw [address] [place] [address] [phone] Urine Appearance Clear Urine Specific [place] 1.002 Low 1.010-1.030 Urine pH 6.0 Normal 5-9 Urine Urobilinogen Negative Negative Urine Ketones Negative Negative Urine Protein Negative Negative Urine Leukocytes Negative Negative Urine Blood 1+ Abnormal Negative Urine Nitrite Negative Negative Urine Bilirubin Negative Negative Urine Glucose Negative Negative Urine White Blood Cell Absent Absent Urine Red Blood Cell Trace(0-2/hpf) Absent Urine Bacteria Absent Absent CBC Auto 04/27/2019 [facility] White Blood 6.1 10^3/uL Normal 3.5-10.[address] [place] [address] [phone] Red Blood Count 4.83 10^6/uL Normal 3.70-4.87 [...] Red Blood Cells % 0.1 Laboratory 04/27/2019 [facility] Troponin-I 0.01 ng/mL <0.03 8 test finding [address] (TnI) [place] [address] [phone] Pre Cath Panel 04/16/2019 [facility] Partial 37.2 Normal 26.0- 38. [address] DR[address] Thrombo Time seconds 0 [place] [address] PTT [phone] CBC Auto Diff 04/16/2019 [facility] White Blood 7.6 10^3/uL Normal 3.5-10.[address] [place] [address] [phone] Red Blood Count 5.14 10^6/uL High 3.70-4.87 [...] Red Blood Cells % 0.2 Inr/Protime 04/16/2019 [facility] Inr 1.03 Normal 0.82-1.[address] [place] [address] [phone] Basic Metabolic 04/16/2019 [facility] Sodium 140 mmol/L Normal 135-145 Panel [address] [place] [address] [phone] Potassium 4.3 mmol/L Normal 3.5-5.0 Chloride 104 mmol/L Normal 101-111 Co2 Carbon Dioxide 25 mmol/L Normal 22-32 Anion Gap 11 mmol/L Normal 2-11 Glucose 94 mg/dL Normal 70-100 Blood Urea Nitrogen 10 mg/dL Normal 6-24 Creatinine 0.67 mg/dL Normal 0.51-0.95 BUN/Creatinine Ratio 14.9 Normal 8-20 Calcium 9.8 mg/dL Normal 8.6-10.3 Egfr Non- 90.1 >60 Egfr 109.0 >60 11 Urine Culture And 04/03/2019 [facility] Urine Culture SEE RESULT [address] [place] [address] [phone] Urine Drug SCR ED 04/03/2019 [facility] Urine None None [facility] [address] [place] [address] Screen [phone] Urine Barbiturates Screen None Detected None Detect Urine Benzodiazepine Screen None Detected None Detect Urine Cannabinoids Screen None Detected None Detect Urine Cocaine Screen None Detected None Detect Urine Opiates Screen None Detected None Detect Urine Phencyclidine Screen None Detected None Detect 13 Laboratory test 04/03/2019 [facility] Acetaminophen < 15 g/mL [address] [place] [address] [phone] Alcohol < 10 mg/dL Normal <10 Salicylate < 2.50 mg/dL <30 Comp Metabolic 04/03/2019 [facility] Sodium 138 mmol/L Normal 135-[address] [place] [address] [phone] Potassium 3.7 mmol/L Normal 3.5-5.0 Chloride 106 [...] Non- 84.6 >60 Egfr 102.3 >60 15 Urinalysis Profile 04/03/2019 [facility] Urine Color Yellow [address] [place] [address] [phone] Urine Appearance Clear Urine Specific [place] 1.002 Low 1.010-1.030 Urine pH 6.0 Normal [...] Cell Present Abnormal Absent CBC Auto 04/03/2019 [facility] White Blood 8.2 10^3/uL Normal 3.5-10.[address] [place] [address] [phone] Red Blood Count 5.45 10^6/uL High 3.70-4.87 [...] Blood Cells % 0.1 Laboratory test 03/26/2019 [facility] Troponin-I (TnI) 0.01 ng/ mL <0.03 [address] [place] [address] [phone] B-Type Natriuretic Peptide BNP 183 pg/mL High <=100 Basic Metabolic 03/26/2019 [facility] Sodium 140 mmol/L Normal 135-[address] [place] [address] [phone] Potassium 4.1 mmol/L Normal 3.5-5.0 Chloride 105 mmol/L Normal 101-111 Co2 Carbon Dioxide 26 mmol/L Normal 22-32 Anion Gap 9 mmol/L Normal 2-11 Glucose 95 mg/dL Normal 70-100 Blood Urea Nitrogen 13 mg/dL Normal 6-24 Creatinine 0.74 mg/dL Normal 0.51-0.95 BUN/Creatinine Ratio 17.6 Normal 8-20 Calcium 9.6 mg/dL Normal 8.6-10.3 Egfr Non- 80.6 >60 Egfr 97.5 >60 17 CBC Auto 03/26/2019 [facility] White Blood 6.5 10^3/uL Normal 3.5-10.[address] [place] [address] [phone] Red Blood Count 5.28 10^6/uL High 3.70-4.87 [...] Red Blood Cells % 0.0 Laboratory 03/26/2019 [facility] Partial 40.3 High 26.0-38.0 test finding [address] [place] [address] Time PTT [phone] Inr/Protime 03/26/2019 [facility] Inr 1.03 Normal 0.82-1.[address] [place] [address] [phone] Laboratory 03/26/2019 [facility] Troponin-I 0.01 ng/mL <0.03 [address] (TnI) [place] [address] [phone] CBC Auto Diff 01/28/2019 [facility] White Blood 9.7 10^3/uL Normal 3.5-10.[address] [place] [address] [phone] Red Blood Count 5.32 10^6/uL High 3.70-4.87 [...] Blood Cells % 0.1 Laboratory test 01/28/2019 [facility] B-Type 179 pg/mL High <= [address] [place] [address] Peptide BNP [phone] Laboratory test 01/28/2019 [facility] Troponin-I 0.02 <0.[address] (TnI) ng/[place] [address] [phone] Comp Metabolic 01/28/2019 [facility] Sodium 133 Low 135-[address] mmol/[place] [address] [phone] Potassium 4.4 mmol/L Normal 3.5-5.0 Chloride 102 [...] Egfr Non- 70.6 >60 Egfr 85.4 >60 21 Laboratory 01/28/2019 [facility] Troponin-I 0.03 <0.04 22 test finding [address] (TnI) ng/[place] [address] [phone] CBC Auto Diff 01/09/2019 [facility] White Blood 6.5 Normal 3.5 -10.[address] Count 10^3/[place] [address] [phone] Red Blood Count 4.84 10^6/uL Normal 3.70-4.87 [...] Blood Cells % 0.0 Laboratory test 01/09/2019 [facility] C Reactive 5.85 mg/L Normal <8.[address] [place] [address] [phone] Liver Function 01/09/2019 [facility] Total Protein 7.1 g/dL Normal 6.4-8.[address] [place] [address] [phone] Albumin 3.9 g/dL Normal 3.2-5.2 Globulin 3.2 g/dL Normal 2-4 Albumin/Globulin Ratio 1.2 Normal 1-3 Total Bilirubin 1.20 mg/dL High 0.2-1.0 Direct Bilirubin 0.20 mg/dL High 0.03-0.18 Indirect Bilirubin 1.0 mg/dL Normal 0.3-1.0 Alkaline Phosphatase 129 U/L High 34-104 Alt 12 U/L Normal 7-52 Ast 12 U/L Low 13-39 Laboratory test 01/09/2019 [facility] GGTP 13 U/L Normal 9- 64.[address] [place] [address] [phone] Laboratory test 12/26/2018 [facility] Troponin-I 0.02 <0.04 23 finding [address] [facility] (TnI) ng/[place] [address] [phone] Comp Metabolic 12/26/2018 [facility] Sodium 138 Normal 135- [address] mmol/[place] [address] [phone] Potassium 3.7 mmol/L Normal 3.5-5.0 Chloride 106 [...] Egfr Non- 97.1 >60 Egfr 117.4 >60 24 CBC Auto 12/26/2018 [facility] White Blood 7.8 10^3/uL Normal 3.5-10.[address] [place] [address] [phone] Red Blood Count 4.82 10^6/uL Normal 3.70-4.87 [...] Red Blood Cells % 0.1 Laboratory 12/26/2018 [facility] Lactic Acid 0.9 mmol/L Normal 0.5-2.0 25 test finding [address] [place] [address] [phone] Inr/Protime 12/22/2018 [facility] Inr 1.03 Normal 0.82-1.[address] [place] [address] [phone] Laboratory 12/22/2018 [facility] Partial 38.7 High 26.0-38.0 test finding [address] [place] [address] Time PTT [phone] D Dimer Quantitative 453 ng/mL High Less Than 230 27 Comp Metabolic 12/22/2018 [facility] Sodium 139 mmol/L Normal 135-[address] [place] [address] [phone] Potassium 3.8 mmol/L Normal 3.5-5.0 Chloride 107 [...] Egfr Non- 106.8 >60 Egfr 129.2 >60 28 Laboratory test 12/22/2018 [facility] Troponin-I (TnI) 0.03 ng/ mL <0.04 [address] [place] [address] [phone] B-Type Natriuretic Peptide BNP 248 pg/mL High <=100 CBC Auto 12/22/2018 [facility] White Blood 7.1 10^3/uL Normal 3.5-10.[address] [place] [address] [phone] Red Blood Count 4.86 10^6/uL Normal 3.70-4.87 [...] Blood Cells % 0.0 CBC Auto 11/22/2018 [facility] White Blood 7.0 10^3/uL Normal 3.5-10.[address] Count [place], [place] [address] [phone] Red Blood Count 4.71 10^6/uL Normal 3.70-4.87 [...] Blood Cells % 0.1 Laboratory test 11/22/2018 [facility] Hemoglobin A1c 6.5 % High 4.0-5.6 [address] (Glyco HGB) [place] [address] [phone] Comp Metabolic 11/22/2018 [facility] Sodium 139 Normal 135- [address] mmol/[place] [address] [phone] Potassium 4.2 mmol/L Normal 3.5-5.0 Chloride 105 [...] Egfr Non- 116.0 >60 Egfr 140.3 >60 31 1 Because ethnic data is not always [...] immediately to secondary confirmatory testing. Using the [employer] DxI 800 Access Immunoassay systems, the 99th percentile upper reference limit was demonstrated to be < 0.03 ng/mL. 4 Please note: The following may produce a false positive D Dimer test: - Rheumatoid factor greater than 60 IU/ml - Plasma hemoglobin greater than 0.05 gm/dl - Bilirubin greater than 50 mg/dl - Lipids greater than 1000 mg/dl - FDP greater than 20 ug/ml 5 Because ethnic data is not always [...] 5 Kidney failure <15 (or dialysis) 6 [facility] Severe Sepsis and Septic Shock Management Bundle Measure requires all lactic acids initially measuring >2.0 mmol/L be repeated. 7 Troponin-I testing on Plasma Separator Tubes (PST) has a known false positive rate of 0.20-0.40%. All positive troponins reflex immediately to secondary confirmatory testing. Using the [employer] DxI 800 Access Immunoassay systems, the 99th percentile upper reference limit was demonstrated to be < 0.03 ng/mL. 8 Troponin-I testing on Plasma Separator Tubes (PST) has a known false positive rate of 0.20-0.40%. All positive troponins reflex immediately to secondary confirmatory testing. Using the [employer] DxI 800 Access Immunoassay systems, the 99th percentile upper reference limit was demonstrated to be < 0.03 ng/mL. 9 soon 10 Standard intensity warfarin therapeutic range: 2.0-3.0 High intensity warfarin therapeutic range: 2.5-3.5 11 Because ethnic data is not always readily [...] 15-29 5 Kidney failure <15 (or dialysis) 12 SEE RESULT BELOW Name: ODESSA ELIAS : [address]: Js Bradshaw MD Acct: [id number] Unit: [id number] AGE: 58 Location: ED Re04/03/19 SEX: F Status: DEP ER SPEC: [id number] ENRIQUE: 04/03/[address]: Js Bradshaw MD REQ: [id number] RECD: 04/03/19 STATUS: PARADISE MALCOLM DR: Criss Lau MD _ SOURCE: URINE SPDESC: ORDERED: Urine Culture Procedure Result Reported Site Urine Culture Final 04/04/19- 1007 ML Few Enterobacteriacae; possible contamination. * [facility] - Main Lab . END OF REPORT DEPARTMENT OF PATHOLOGY, [address] [place] [address] Roddy Villanueva M.D. Director [facility] # [id number] 13 The urine specimen was tested at the listed cutoffs: Drug class test level (ng/mL) Amphetamines 500 Barbiturates 200 Benzodiazepine metabolites 200 Cocaine metabolites 150 Cannabinoids 50 Opiates 300 Pcp 25 Specimen was received without chain of custody. Results should be used for medical purposes only. 14 Therapeutic concentration: <50 ug/mL Toxic concentration: >120 ug/mL 15 Because ethnic data is not always [...] 5 Kidney failure <15 (or dialysis) 16 Troponin-I testing on Plasma Separator Tubes (PST) has a known false positive rate of 0.20-0.40%. All positive troponins reflex immediately to secondary confirmatory testing. Using the [employer] DxI 800 Access Immunoassay systems, the 99th percentile upper reference limit was demonstrated to be < 0.03 ng/mL. 17 Because ethnic data is not always readily [...] 15-29 5 Kidney failure <15 (or dialysis) 18 Standard intensity warfarin therapeutic range: 2.0-3.0 High intensity warfarin therapeutic range: 2.5-3.5 19 Troponin-I testing on Plasma Separator Tubes (PST) has a known false positive rate of 0.20-0.40%. All positive troponins reflex immediately to secondary confirmatory testing. Using the [employer] DxI 800 Access Immunoassay systems, the 99th percentile upper reference limit was demonstrated to be < 0.03 ng/mL. 20 Troponin-I testing on Plasma Separator Tubes (PST) has a known false positive rate of 0.20-0.40%. All positive troponins reflex immediately to secondary confirmatory testing. Using the [employer] DxI 800 Access Immunoassay systems, the 99th percentile upper reference limit was demonstrated to be < 0.03 ng/mL. 21 Because ethnic data is not always readily [...] 15-29 5 Kidney failure <15 (or dialysis) 22 Troponin-I testing on Plasma Separator Tubes (PST) has a known false positive rate of 0.20-0.40%. All positive troponins reflex immediately to secondary confirmatory testing. Using the [employer] DxI 800 Access Immunoassay systems, the 99th percentile upper reference limit was demonstrated to be < 0.03 ng/mL. 23 Troponin-I testing on Plasma Separator Tubes (PST) has a known false positive rate of 0.20-0.40%. All positive troponins reflex immediately to secondary confirmatory testing. Using the [employer] DxI 800 Access Immunoassay systems, the 99th percentile upper reference limit was demonstrated to be < 0.03 ng/mL. 24 Because ethnic data is not always readily [...] 15-29 5 Kidney failure <15 (or dialysis) 25 [facility] Severe Sepsis and Septic Shock Management Bundle Measure requires all lactic acids initially measuring >2.0 mmol/L be repeated. 26 Standard intensity warfarin therapeutic range: 2.0-3.0 High intensity warfarin therapeutic range: 2.5-3.5 27 Please note: The following may produce a false positive D Dimer test: - Rheumatoid factor greater than 60 IU/ml - Plasma hemoglobin greater than 0.05 gm/dl - Bilirubin greater than 50 mg/dl - Lipids greater than 1000 mg/dl - FDP greater than 20 ug/ml 28 Because ethnic data is not always [...] failure <15 (or dialysis) 29 Verbal to [id number] by [id number] at 1446 on 12/22/18. Results read back accurately. Corrected Report. Result TnIDx:0.39 Called to [id number] at: 13:52:23 by:[id number] Read back by: [id number] CORRECTED REPORT --- Corrected on 12/22/18 1446 --- Troponin I previously reported as: 0.39 *C ng/mL Result TnIDx:0.39 Called to [id number] at: 13:52:23 by:[id number] Read back by: [id number] Troponin-I testing on Plasma Separator Tubes (PST) has a known false positive rate of 0.20-0.40%. All positive troponins reflex immediately to secondary confirmatory testing. Using the [employer] 800 Access Immunoassay systems, the 99th percentile upper reference limit was demonstrated to be < 0.03 ng/mL. 30 Therapeutic target for the treatment of diabetes mellitus patients is <7% HBA1C, and in selective patients <6.0%. Please refer to [employer] diabetic care guidelines for further information. 31 Because ethnic data is not always readily [...] (or dialysis) Procedures Date Code Description Status 05/12/2019 26632 EKG Tracing & Interpretation Completed 04/20/2019 31256 Insert/Replace Icd W/Generator Completed 03/17/2019 76137 ECHO Transthoracic, Real-Time 2D With Doppler And Completed Color Flow 03/17/2019 50676 ECHO Transthoracic, Real-Time 2D With Doppler And Completed Color Flow 12/30/2018 94494 EKG Tracing & Interpretation Completed 12/26/2018 13280 EKG Tracing & Interpretation Completed 12/23/2018 66962 ECHO Transthorasic Realtime 2D W Doppler & Color Flow Completed Hosp 12/23/2018 10583 Treadmill Interp/Report Only Completed 12/23/2018 83076 Stress Test Supervsn W/Out I/R Completed 12/23/2018 97219 EKG, Interpretation Only Completed 12/22/2018 18631 ECHO Transthorasic Realtime 2D W Doppler & Color Flow Completed Hosp 12/22/2018 76820 EKG, Interpretation Only Completed 12/22/2018 75973 EKG Tracing & Interpretation Completed 09/26/2018 [id number] Diabetic Retinal Eye Exam Completed 08/01/2018 [id number] Mammogram Completed 03/11/2018 [id number] Colonoscopy Completed 09/26/2017 [id number] Diabetic Retinal Eye Exam Completed 03/15/2017 [id number] Diabetic Retinal Eye Exam Completed 12/07/2016 [id number] Mammogram Completed 09/07/2016 [id number] Diabetic Retinal Eye Exam Completed 12/02/2015 [id number] Mammogram Completed 11/19/2014 [id number] Mammogram Completed 06/28/2014 [id number] Diabetic Retinal Eye Exam Completed 11/20/2013 [id number] Mammogram Completed 09/09/2013 [id number] Diabetic Retinal Eye Exam Completed 11/13/2012 [id number] Mammogram Completed 08/20/2012 [id number] Diabetic Retinal Eye Exam Completed 05/15/2012 [id number] Mammogram Completed 12/26/2011 [id number] Mammogram Completed 12/13/2011 [id number] Mammogram Completed 08/31/2010 [id number] Colonoscopy Completed 11/13/2007 [id number] Mammogram Completed 05/14/2007 [id number] Mammogram Completed 10/18/2006 [id number] Mammogram Completed 05/07/2003 [id number] Mammogram Completed Medical Devices Description No Information Available Encounters Type Date Location Provider Dx Diagnosis Office Visit 05/12/2019 [facility] Danny Melchor, I42.9 Cardiomyopathy, 2:15p Of Marty Santos, FACC, FASNC unspecified Office Visit 04/30/2019 [facility] Criss Lau, F41.9 Anxiety disorder, 10:40a Medicine - Cheryl Santos unspecified Office Visit 04/28/2019 [facility] Steven Ordoñez, I42.9 Cardiomyopathy, 1:00p [facility] AT [facility] [place] M.DTroy unspecified Z95.810 Presence of automatic (implantable) cardiac defibrillator I50.9 Heart failure, unspecified Office Visit 04/07/2019 [place] Steven Delgado I42.9 Cardiomyopathy, 11:30a Cardiology Of Tom Ordoñez unspecified [facility] R94.31 Abnormal electrocardiogram [ECG] [EKG] Office Visit 03/25/2019 [place] Danny Boyle I42.9 Cardiomyopathy, 10:15a Cardiology Shasta Melchor M.D., unspecified [facility] FACC, FASNC Office Visit 02/27/2019 [facility] Internal Anni Vieira, R05 Cough 3:00p [facility] K21.9 Gastro-esophageal reflux disease without esophagitis Office Visit 02/06/2019 3:40p [facility] Internal Milla Calero MD J06.9 [facility], unspecified Office Visit 01/30/2019 2:00p [facility] Internal Criss R05 [facility]ough [facility] Office Visit 12/30/2018 1:15p [facility] Danny Boyle I42.9 Cardiomyopathy, Of [facility] Tom Melchor, unspecified FACC, FASNC I77.810 Thoracic aortic ectasia R94.31 Abnormal electrocardiogram [ECG] [EKG] Office Visit 12/26/2018 2:00p [facility] Internal Criss R07.9 Chest pain, Medicine - Tom Lau unspecified [facility] I45.4 Nonspecific intraventricular block I49.9 Cardiac arrhythmia, unspecified Office Visit 12/23/2018 [facility] Elif Mary, I42.9 Cardiomyopathy, 10:46a [employer] [employer] unspecified Hospitalists R07.9 Chest pain, unspecified Office Visit 12/22/2018 [place] Danny Boyle R94.31 Abnormal 2:00p Cardiology Shasta Melchor M.D., electrocardiogram [facility] FACC, FASNC [ECG] [EKG] R07.89 Other chest pain I42.9 Cardiomyopathy, unspecified Office Visit 12/22/2018 [facility] Nino I42.9 Cardiomyopathy, 10:46a Assocbeth PA unspecified Hospitalists R07.9 Chest pain, unspecified R06.02 Shortness of breath Office Visit 12/22/2018 11:00a [facility] Internal Ingrid Senner, R06.02 Shortness of Medicine - Suite DO breath R F17.290 Nicotine dependence, other tobacco product, uncomplicated Office Visit 12/01/2018 8:40a [facility] Internal Criss D64.9 Anemia, Medicine Sebastián Lau M.D. unspecified [facility] R74.0 Nonspec elev of levels of transamns & lactic acid dehydrgnse E11.9 Type 2 diabetes mellitus without complications Assessments Date Code Description Provider 05/12/2019 I42.9 Cardiomyopathy, unspecified Danny Melchor M.D., [facility], [facility] 04/30/2019 F41.9 Anxiety disorder, unspecified Criss Lau [...] 03/25/2019 I42.9 Cardiomyopathy, unspecified Danny Melchor M.D., [facility], [facility] 03/17/2019 I42.9 Cardiomyopathy, unspecified Danny Melchor M.D., [facility], [facility] 03/17/2019 I42.9 Cardiomyopathy, unspecified Traveling ECHO 1 02/27/2019 R05 Cough Anni Vieira, N.P. 02/27/2019 K21.9 Gastro-esophageal reflux disease Anni Vieira, N.P. without esophagitis 02/06/2019 J06.9 Acute upper respiratory infection, Milla Calero MD unspecified 01/30/2019 R05 Cough Criss Lau M.D. 12/30/2018 I42.9 Cardiomyopathy, unspecified Danny Melchor M.D., [facility], [facility] 12/30/2018 I77.810 Thoracic aortic ectasia Danny Melchor M.D., [facility], [facility] 12/30/2018 R94.31 Abnormal electrocardiogram [ECG] [facility] 12/26/2018 R07.9 Chest pain, unspecified Criss Lau M.D. 12/26/2018 I45.4 Nonspecific intraventricular block Criss Lau M.D. 12/26/2018 I49.9 Cardiac arrhythmia, unspecified Criss Lau M.D. 12/23/2018 R94.31 Abnormal electrocardiogram [ECG] Madhavi Chaudhary M.D. [EKG] 12/23/2018 R07.9 Chest pain, unspecified Catherine Bartlett MD, [facility], [facility] 12/23/2018 I42.9 Cardiomyopathy, unspecified Elif Mary, [employer] 12/23/2018 R07.9 Chest pain, unspecified Elif Mary, [employer] 12/22/2018 R94.31 Abnormal electrocardiogram [ECG] Madhavi Chaudhary M.D. [EKG] 12/22/2018 R94.31 Abnormal electrocardiogram [ECG] Danny Melchor M.D., [facility], [EKG] [facility] 12/22/2018 R07.89 Other chest pain Danny Melchor M.D., [facility], [facility] 12/22/2018 I42.9 Cardiomyopathy, unspecified Danny Melchor M.D., [facility], [facility] 12/22/2018 I42.9 Cardiomyopathy, unspecified [facility]OUS [facility] 12/22/2018 R06.02 Shortness of breath Ingrid Macedo, 12/22/2018 R07.9 Chest pain, unspecified [facility] 12/22/2018 F17.290 Nicotine dependence, other tobacco Ingrid DO Hellen product, uncomplicated 12/22/2018 R06.02 Shortness of breath [facility] 12/01/2018 D64.9 Anemia, unspecified Criss Lau M.D. 12/01/2018 R74.0 Nonspecific elevation of levels of Criss Lau M.D. transaminase and lactic acid dehydrogenase [LDH] 12/01/2018 E11.9 Type 2 diabetes mellitus without Criss Lau M.D. complications Plan of Treatment Future Appointment(s):07/17/2019 1:00 pm - Danny Melchor M.D., [facility], FASNC at [facility]09/04/2019 9:45 am - Donald Alvarado M.D. at [facility]/28/2019 1:20 pm - Criss Lau M.D. at [facility] Internal Medicine - [facility]05/12/2019 - Danny Melchor M.D., [facility], DCOIZC80.9 Cardiomyopathy, unspecifiedNew Medication:Bumetanide 2 mg - 1 tablet once a dayComments:As discussed, we are increasing your Bumex to 2 mg once a day with blood work next week. No swimminguntil 06/19/19, no lifting arm over head until the 3rd week of May 2019, okay to wear slender necklace that doesn't rest on your defibrillator and prefer you bring your monitor to your friend's house for sleep over.Follow up:6 weeks Functional Status Description No Information Available Mental Status Description No Information Available Referrals Refer to Reason for Referral Status Appt Date Steven Ordoñez MD Dear Dr. Ordoñez, pt has persistent severe Sent non-ischemic CMP. Please evaluate Ms. Elias for ICD for primary prophylaxis for SCD. [address] [place] [address] [phone]
--- OUTSIDE RECORDS SUMMARY | 2019-06-25 23:20 | XMS REPORT | Continuity of Care Document ---
:1960 External Reference #:[id number] Author Name Steven Ordoñez M.D. (transmitted by agent of provider Alejandra Carter) Address [address] [place] [address] Care Team Providers Name Role Phone Criss Lau MD - Internal Care Team Information [employer] [phone] Medicine Luda Craig MD - Obstetrics & Care Team Information [employer] Gynecology carissa-Diana Betancourt M.D. - Single Care Team Information [employer] [facility] - Mental Care Team Information [employer] [facility] ENT - Clinic/Center Care Team Information [employer] [phone] Roland Rey MD - Care Team Information [employer] [phone] Otolaryngology Brittaney Altamirano O.D. - Biomedical Repair Technician Care Team Information [employer] Problems Active Problems Provider Date Type 2 [...] Use Denies Drug Use Smoking Status Reviewed: 04/28/19 Patient is a former pt was vaping but smoker stop on 04/07/19 Exercise Type/Frequency Does not exercise Allergies, Adverse Reactions, Alerts Active Allergies Reaction Severity Comments Date Penicillin swelling 11/02/2009 Bee Sting 11/02/2009 Losartan cough 07/25/2015 Lisinopril cough 07/25/2015 Clindamycin sore throat 04/28/2019 Medications Active Medications SIG Qnty Indications Ordering Date Provider Bumetanide one a day 30tabs I42.9 Steven Delgado 04/28/2019 1mg Tablets Tom Ordoñez Furosemide 1/2 pill by 30tabs I50.22 Cameron Rasheed MD 04/10/2019 20mg Tablets mouth every day for the next 3 days and then daily twice a week on Mondays and . Spironolactone Every Morning Unknown 03/26/2019 25mg Tablets Famotidine 1 by mouth twice 60tabs K21.9 Anni Varn, 02/27/2019 20mg Tablets a day N.P. Epipen 2-Clifford use as directed 2units Criss 01/30/2019 0.3mg/0.3ML Tom Lau Solution Auto-Inject Aldactone take one half 90tabs I42.9 Danny Montana 12/30/2018 25mg Tablets tablet (12.5 mg) Tom Melchor, per day FACC, FASNC Atorvastatin Calcium 1 by mouth every 90tabs E78.5 Cameron Rasheed MD 2018 40mg day Tablets Carvedilol 1 by mouth twice 180tabs Criss 12/24/2018 6.25mg Tablets a day Tom Lau Aspirin Ec Low Dose Every Day Unknown 12/22/[address] Balderasalopram Every Day Unknown 12/22/2018 Hydrobromide 20mg Tablets Ferrous Gluconate take 1 tablet by 30tabs D50.9 Criss 11/24/2018 mouth once daily Tom Lau 324(38Fe) mg Tablets i Esomeprazole Magnesium Take One Capsule 90caps Criss 06/04/2018 By Mouth Every Tom Lau 40mg Capsules DR Delilah Shower Chair For daily use Dx 1units R26.81 Criss 08/27/2017 r 26.81 Tom Lau Latanoprost applies one drop Brittaney Altamirano, 03/29/2017 0.005% to both eyes hs O.D. Solution Vitamin B12 1 by mouth every 30tabs R26.81 Criss 02/11/2017 1000mcg day Tom Lau Tablets ER Walker 4 wheels, 1units R26.81 Criss 01/11/2017 Misc brakes, seat and Tom Lau basket. r26.81 G62.9 Miralax 17 gm every day 510units R10.13 Criss Sid, 11/17/2015 3350NF Powder mixed w/ 8 oz M.D. water/juice as needed Gabapentin take one capsule by [facility] E11.40 Criss Sid, 02/25/2015 100mg mouth two times a M.D. Capsules day History Medications Clindamycin HCL Three Times 9caps Unknown 04/21/2019 - 300mg Daily 04/27/2019 Capsules Azithromycin two tabs day 6tabs [facility] Anni Vieira, 02/27/2019 - 250mg one, one daily N.P. 03/09/2019 Tablets till gone Medrol 6 by mouth day 21units R0 Anni Vieira, 02/27/2019 - 4mg TBPK 1, 5 by mouth N.P. 03/05/2019 day 2, 4 by mouth day 3, 3 by mouth day 4, 2 by mouth day 5, 1 by mouth day 6 Benzonatate one by mouth 30caps R0 Anni Vieira, 02/27/2019 - 200mg three times N.P. 03/13/2019 Capsules daily as needed for cough Doxycycline Hyclate 1 tab by mouth 14tabs Crissfelisha Lau, 2018 - twice a day M.D. [...] CPT Code Status Date Vaccine Lot # [id number] Given 01/17/2018 Influenza Virus Vaccine, Quadrivalent, Split, [id number] Preservative Free 57389 Given 02/16/2016 Influ Virus Vaccine, Quadrivalent, Split Virus, [id number] [address] Given 01/21/2015 Influenza Virus Vaccine, Quadrivalent, Split, [id number] Preservative Free 96073 Given 01/24/2014 Flu Vaccine Split Virus Preservative Free For Indiv 3Yr Older 24990 Given 11/28/2011 Pneumonia Vaccine [id number] Given 03/21/2011 Afluria Vaccine [id number] 42246 Given 12/30/2009 Influenza Virus 3Yrs & Over 04509 Given 02/28/2009 Influenza Virus Vaccine, Pandemic Formulation 39707 Given 02/24/2009 Influenza Virus 3Yrs & Over 14601 Given 02/26/2008 Influenza Virus 3Yrs & Over 06856 Given 02/26/2008 Influenza Virus 3Yrs & Over 88150 Given 03/13/2007 Influenza Virus 3Yrs & Over 17123 Given 03/13/2007 Influenza Virus 3Yrs & Over 07725 Given 02/22/2006 Influenza Virus 3Yrs & Over Vital Signs Date Vital Result Comment 04/28/2019 12:48pm Height 63 inches 5'3" Weight 180.25 lb w/ shoes Heart Rate 86 /min R. radial, regular BP Systolic Sitting 120 mmHg Ra, reg cuff BP Diastolic Sitting 82 mmHg Ra, reg cuff BP Systolic Standing 126 mmHg Ra, reg cuff BP Diastolic Standing 84 mmHg Ra, reg cuff BMI (Body Mass Index) 31.9 kg/m2 04/10/2019 10:55am Height 63 inches 5'3" Weight 184.25 lb Heart Rate 71 /min BP Systolic 111 mmHg BP Diastolic 73 mmHg Body Temperature 97.1 F O2 % BldC Oximetry 97 % BMI (Body Mass Index) 32.6 kg/m2 Results Test Acquired Date Facility Test Result H/L Range Note Comp Metabolic 04/28/2019 [facility] Sodium 137 mmol/L Normal 135-[address] [place] [address] [phone] Potassium 3.6 mmol/L Normal 3.5-5.0 Chloride 106 [...] Egfr Non- 90.1 >60 Egfr 109.0 >60 1 Laboratory test 04/28/2019 [facility] Troponin-I 0.01 <0.03 [address] (TnI) ng/[place] [address] [phone] CBC Auto Diff 04/28/2019 [facility] White Blood 7.1 Normal 3.5 -10.[address] Count 10^3/[place] [address] [phone] Red Blood Count 4.76 10^6/uL Normal 3.70-4.87 [...] Red Blood Cells % 0.0 Laboratory 04/28/2019 [facility] B-Type 443 pg/mL High <=100 test finding [address] [place] [address] Peptide BNP [phone] Laboratory 04/27/2019 [facility] Troponin-I 0.01 <0.03 3 test finding [address] (TnI) ng/[place] [address] [phone] CBC Auto Diff 04/27/2019 [facility] White Blood 6.1 Normal 3.5 -10.[address] Count 10^3/[place] [address] [phone] Red Blood Count 4.83 10^6/uL Normal 3.70-4.87 [...] Red Blood Cells % 0.1 Urinalysis Profile 04/27/2019 [facility] Urine Color Straw [address] [place] [address] [phone] Urine Appearance Clear Urine Specific [place] 1.002 Low 1.010-1.030 Urine pH 6.0 Normal 5-9 Urine Urobilinogen Negative Negative Urine Ketones Negative Negative Urine Protein Negative Negative Urine Leukocytes Negative Negative Urine Blood 1+ Abnormal Negative Urine Nitrite Negative Negative Urine Bilirubin Negative Negative Urine Glucose Negative Negative Urine White Blood Cell Absent Absent Urine Red Blood Cell Trace(0-2/hpf) Absent Urine Bacteria Absent Absent Laboratory test 04/27/2019 [facility] Lactic Acid 0.9 mmol/L Normal 0.5-2.0 4 finding [address] [place] [address] [phone] B-Type Natriuretic Peptide BNP 359 pg/mL High <=100 Troponin-I (TnI) 0.01 ng/mL <0.03 5 Comp Metabolic 04/27/2019 [facility] Sodium 140 mmol/L Normal 135-145 Panel [address] [place] [address] [phone] Potassium 3.7 mmol/L Normal 3.5-5.0 Chloride 105 [...] 87.1 >60 Egfr 105.4 >60 6 Laboratory 04/27/2019 [facility] C Reactive 24.11 High <8.01 test finding [address] Protein mg/L [place] [id number] [phone] CKMB 04/27/2019 [facility] CKMB ng/mL 0.8 ng/mL Normal 0.6- 6.[address] [place] [address] [phone] Laboratory 04/27/2019 [facility] D Dimer 610 ng/mL High Less 7 test finding [address] Quantitative Than [address] [place] [address] [phone] Basic 04/16/2019 [facility] Sodium 140 Normal 135-[address] mmol/[place] [address] [phone] Potassium 4.3 mmol/L Normal 3.5-5.0 Chloride 104 mmol/L Normal 101-111 Co2 Carbon Dioxide 25 mmol/L Normal 22-32 Anion Gap 11 mmol/L Normal 2-11 Glucose 94 mg/dL Normal 70-100 Blood Urea Nitrogen 10 mg/dL Normal 6-24 Creatinine 0.67 mg/dL Normal 0.51-0.95 BUN/Creatinine Ratio 14.9 Normal 8-20 Calcium 9.8 mg/dL Normal 8.6-10.3 Egfr Non- 90.1 >60 Egfr 109.0 >60 8 Inr/Protime 04/16/2019 [facility] Inr 1.03 Normal 0.82-1.[address] [place] [address] [phone] CBC Auto Diff 04/16/2019 [facility] White Blood 7.6 Normal 3.5 -10.[address] Count 10^3/[place] [address] [phone] Red Blood Count 5.14 10^6/uL High 3.70-4.87 [...] % Nucleated Red Blood Cells % 0.2 Pre Cath 04/16/2019 [facility] Partial 37.2 seconds Normal 26.0-38.0 [address] [place] [address] PTT [phone] CBC Auto 04/03/2019 [facility] White Blood 8.2 10^3/uL Normal 3.5-10.[address] [place] [address] [phone] Red Blood Count 5.45 10^6/uL High 3.70-4.87 [...] Blood Cells % 0.1 Urinalysis Profile 04/03/2019 [facility] Urine Color Yellow [address] [place] [address] [phone] Urine Appearance Clear Urine Specific [place] 1.002 Low 1.010-1.030 Urine pH 6.0 Normal [...] Cell Present Abnormal Absent Comp Metabolic 04/03/2019 [facility] Sodium 138 mmol/L Normal 135-145 Panel [address] [place] [address] [phone] Potassium 3.7 mmol/L Normal 3.5-5.0 Chloride 106 [...] Egfr Non- 84.6 >60 Egfr 102.3 >60 11 Laboratory test 04/03/2019 [facility] Acetaminophen < 15 g/mL 12 finding [address] [place] [address] [phone] Alcohol < 10 mg/dL Normal <10 Salicylate < 2.50 mg/dL <30 Urine Drug 04/03/2019 [facility] Urine None Detected None Detect SCR ED & [address] [place] [address] Screen [phone] Urine Barbiturates Screen None Detected None Detect Urine Benzodiazepine Screen None Detected None Detect Urine Cannabinoids Screen None Detected None Detect Urine Cocaine Screen None Detected None Detect Urine Opiates Screen None Detected None Detect Urine Phencyclidine Screen None Detected None Detect 13 Urine Culture And 04/03/2019 [facility] Urine Culture SEE RESULT [address] [place] [address] [phone] Laboratory test 03/26/2019 [facility] Troponin-I 0.01 ng/mL < 0.[address] (TnI) [place] [address] [phone] B-Type Natriuretic Peptide BNP 183 pg/mL High <=100 Basic Metabolic 03/26/2019 [facility] Sodium 140 mmol/L Normal 135-[address] [place] [address] [phone] Potassium 4.1 mmol/L Normal 3.5-5.0 Chloride 105 mmol/L Normal 101-111 Co2 Carbon Dioxide 26 mmol/L Normal 22-32 Anion Gap 9 mmol/L Normal 2-11 Glucose 95 mg/dL Normal 70-100 Blood Urea Nitrogen 13 mg/dL Normal 6-24 Creatinine 0.74 mg/dL Normal 0.51-0.95 BUN/Creatinine Ratio 17.6 Normal 8-20 Calcium 9.6 mg/dL Normal 8.6-10.3 Egfr Non- 80.6 >60 Egfr 97.5 >60 16 CBC Auto 03/26/2019 [facility] White Blood 6.5 10^3/uL Normal 3.5-10.[address] [place] [address] [phone] Red Blood Count 5.28 10^6/uL High 3.70-4.87 [...] Red Blood Cells % 0.0 Laboratory 03/26/2019 [facility] Partial 40.3 High 26.0-38.0 test finding [facility] [employer] [place] [address] Time PTT [phone] Inr/Protime 03/26/2019 [facility] Inr 1.03 Normal 0.82-1.09 17 [facility] [place] [address] [phone] Laboratory 03/26/2019 [facility] Troponin-I 0.01 ng/mL <0.03 18 test finding [facility] [employer] ([place]) [place] [address] [phone] Laboratory 01/28/2019 [facility] Troponin-I 0.03 ng/mL <0.04 19 test finding [facility] [employer] (TnI) [place], [place] [id number] [phone] Comp Metabolic 01/28/2019 [facility] Sodium 133 mmol/L Low 135 -145 Panel [facility] [address] [phone] Potassium 4.4 mmol/L Normal 3.5-5.0 Chloride 102 [...] Egfr Non- 70.6 >60 Egfr 85.4 >60 20 Laboratory 01/28/2019 [facility] Troponin-I 0.02 <0.04 21 test finding [address] (TnI) ng/mL [place], [place] [address] [phone] CBC Auto Diff 01/28/2019 [facility] White Blood 9.7 Normal 3.5 -10.[address] Count 10^3/[place] [address] [phone] Red Blood Count 5.32 10^6/uL High 3.70-4.87 [...] Red Blood Cells % 0.1 Laboratory 01/28/2019 [facility] B-Type 179 pg/mL High <=100 test finding [address] [place] [address] Peptide BNP [phone] CBC Auto Diff 01/09/2019 [facility] White Blood 6.5 Normal 3.5 -10.[address] Count 10^3/[place] [address] [phone] Red Blood Count 4.84 10^6/uL Normal 3.70-4.87 [...] Blood Cells % 0.0 Laboratory test 01/09/2019 [facility] C Reactive 5.85 mg/L Normal <8.[address] [place] [address] [phone] Liver Function 01/09/2019 [facility] Total Protein 7.1 g/dL Normal 6.4-8.[address] [place] [address] [phone] Albumin 3.9 g/dL Normal 3.2-5.2 Globulin 3.2 g/dL Normal 2-4 Albumin/Globulin Ratio 1.2 Normal 1-3 Total Bilirubin 1.20 mg/dL High 0.2-1.0 Direct Bilirubin 0.20 mg/dL High 0.03-0.18 Indirect Bilirubin 1.0 mg/dL Normal 0.3-1.0 Alkaline Phosphatase 129 U/L High 34-104 Alt 12 U/L Normal 7-52 Ast 12 U/L Low 13-39 Laboratory test 01/09/2019 [facility] GGTP 13 U/L Normal 9- 64.[address] [place] [address] [phone] Laboratory test 12/26/2018 [facility] Troponin-I 0.02 <0.04 [address] (TnI) ng/[place] [address] [phone] Comp Metabolic 12/26/2018 [facility] Sodium 138 Normal 135- [address] mmol/[place] [address] [phone] Potassium 3.7 mmol/L Normal 3.5-5.0 Chloride 106 [...] Egfr Non- 97.1 >60 Egfr 117.4 >60 23 CBC Auto 12/26/2018 [facility] White Blood 7.8 10^3/uL Normal 3.5-10.[address] [place] [address] [phone] Red Blood Count 4.82 10^6/uL Normal 3.70-4.87 [...] Blood Cells % 0.1 Laboratory test 12/26/2018 [facility] Lactic Acid 0.9 mmol/L Normal 0.5-2.0 [address] [place] [address] [phone] CBC Auto Diff 12/22/2018 [facility] White Blood 7.1 Normal 3.5 -10.[address] Count 10^3/uL [place], [place] [address] [phone] Red Blood Count 4.86 10^6/uL Normal 3.70-4.87 [...] Red Blood Cells % 0.0 Inr/Protime 12/22/2018 [facility] Inr 1.03 Normal 0.82-1.[address] [place] [address] [phone] Laboratory test 12/22/2018 [facility] Partial 38.7 High 26.0- 38.[address] [place] [address] Time PTT [phone] D Dimer Quantitative 453 ng/mL High Less Than 230 26 Comp Metabolic 12/22/2018 [facility] Sodium 139 mmol/L Normal 135-[address] [place] [address] [phone] Potassium 3.8 mmol/L Normal 3.5-5.0 Chloride 107 [...] Egfr Non- 106.8 >60 Egfr 129.2 >60 27 Laboratory test 12/22/2018 [facility] Troponin-I (TnI) 0.03 ng/ mL <0.04 [address] [place] [address] [phone] B-Type Natriuretic Peptide BNP 248 pg/mL High <=100 CBC Auto 11/22/2018 [facility] White Blood 7.0 10^3/uL Normal 3.5-10.[address] [place] [address] [phone] Red Blood Count 4.71 10^6/uL Normal 3.70-4.87 [...] % 0.1 Laboratory test 11/22/2018 [facility] Hemoglobin A1c 6.5 % High 4.0-5.6 [address] (Glyco HGB) [place] [address] [phone] Comp Metabolic 11/22/2018 [facility] Sodium 139 Normal 135- [address] mmol/[place] [address] [phone] Potassium 4.2 mmol/L Normal 3.5-5.0 Chloride 105 [...] Egfr Non- 116.0 >60 Egfr 140.3 >60 30 1 Because ethnic data is not always [...] 5 Kidney failure <15 (or dialysis) 2 Troponin-I testing on Plasma Separator Tubes (PST) has a known false positive rate of 0.20-0.40%. All positive troponins reflex immediately to secondary confirmatory testing. Using the [employer] DxI 800 Access Immunoassay systems, the 99th percentile upper reference limit was demonstrated to be < 0.03 ng/mL. 3 Troponin-I testing on Plasma Separator Tubes (PST) has a known false positive rate of 0.20-0.40%. All positive troponins reflex immediately to secondary confirmatory testing. Using the [employer] DxI 800 Access Immunoassay systems, the 99th percentile upper reference limit was demonstrated to be < 0.03 ng/mL. 4 [facility] Severe Sepsis and Septic Shock Management Bundle Measure requires all lactic acids initially measuring >2.0 mmol/L be repeated. 5 Troponin-I testing on Plasma Separator Tubes [...] 5 Kidney failure <15 (or dialysis) 7 Please note: The following may produce a false positive D Dimer test: - Rheumatoid factor greater than 60 IU/ml - Plasma hemoglobin greater than 0.05 gm/dl - Bilirubin greater than 50 mg/dl - Lipids greater than 1000 mg/dl - FDP greater than 20 ug/ml 8 Because ethnic data is not always [...] 5 Kidney failure <15 (or dialysis) 9 Standard intensity warfarin therapeutic range: 2.0-3.0 High intensity warfarin therapeutic range: 2.5-3.5 10 soon 11 Because ethnic data is not always [...] 5 Kidney failure <15 (or dialysis) 12 Therapeutic concentration: <50 ug/mL Toxic concentration: >120 ug/mL 13 The urine specimen was tested at the listed cutoffs: Drug class test level (ng/mL) Amphetamines 500 Barbiturates 200 Benzodiazepine metabolites 200 Cocaine metabolites 150 Cannabinoids 50 Opiates 300 Pcp 25 Specimen was received without chain of custody. Results should be used for medical purposes only. 14 SEE RESULT BELOW Name: ODESSA ELIAS : [address]: Js Bradshaw MD Acct: [id number] Unit: [id number] AGE: 58 Location: ED Re04/03/19 SEX: F Status: DEP ER SPEC: [id number] ENRIQUE: 04/03/19 [facility] DR: Js Bradshaw MD REQ: [id number] RECD: 04/03/19 STATUS: [facility] DR: Criss Lau MD _ SOURCE: URINE SPDESC: ORDERED: Urine Culture Procedure Result Reported Site Urine Culture Final 04/04/19- 1007 ML Few Enterobacteriacae; possible contamination. * [facility] - Main Lab . END OF REPORT DEPARTMENT OF PATHOLOGY, [address] [place] [address] Roddy Villanueva M.D. Director [facility] # [id number] 15 Troponin-I testing on Plasma Separator Tubes (PST) has a known false positive rate of 0.20-0.40%. All positive troponins reflex immediately to secondary confirmatory testing. Using the [employer] DxI 800 Access Immunoassay systems, the 99th [...] 5 Kidney failure <15 (or dialysis) 17 Standard intensity warfarin therapeutic range: 2.0-3.0 High intensity warfarin therapeutic range: 2.5-3.5 18 Troponin-I testing on Plasma Separator Tubes (PST) has a known false positive rate of 0.20-0.40%. All positive troponins reflex immediately to secondary confirmatory testing. Using the [employer] DxI 800 Access Immunoassay systems, the 99th percentile upper reference limit was demonstrated to be < 0.03 ng/mL. 19 Troponin-I testing on Plasma Separator Tubes (PST) has a known false positive rate of 0.20-0.40%. All positive troponins reflex immediately to secondary confirmatory testing. Using the [employer] DxI 800 Access Immunoassay systems, the 99th percentile upper reference limit was demonstrated to be < 0.03 ng/mL. 20 Because ethnic data is not always [...] 15-29 5 Kidney failure <15 (or dialysis) 21 Troponin-I testing on Plasma Separator Tubes (PST) has a known false positive rate of 0.20-0.40%. All positive troponins reflex immediately to secondary confirmatory testing. Using the [employer] DxI 800 Access Immunoassay systems, the 99th percentile upper reference limit was demonstrated to be < 0.03 ng/mL. 22 Troponin-I testing on Plasma Separator Tubes (PST) has a known false positive rate of 0.20-0.40%. All positive troponins reflex immediately to secondary confirmatory testing. Using the [employer] DxI 800 Access Immunoassay systems, the 99th percentile upper reference limit was demonstrated to be < 0.03 ng/mL. 23 Because ethnic data is not always readily [...] 15-29 5 Kidney failure <15 (or dialysis) 24 [facility] Severe Sepsis and Septic Shock Management Bundle Measure requires all lactic acids initially measuring >2.0 mmol/L be repeated. 25 Standard intensity warfarin therapeutic range: 2.0-3.0 High intensity warfarin therapeutic range: 2.5-3.5 26 Please note: The following may produce a false positive D Dimer test: - Rheumatoid factor greater than 60 IU/ml - Plasma hemoglobin greater than 0.05 gm/dl - Bilirubin greater than 50 mg/dl - Lipids greater than 1000 mg/dl - FDP greater than 20 ug/ml 27 Because ethnic data is not always readily [...] 15-29 5 Kidney failure <15 (or dialysis) 28 Verbal to [id number] by [id number] at 1446 on 12/22/18. Results read back accurately. Corrected Report. Result TnIDx:0.39 Called to [id number] at: 13:52:23 by:[id number] Read back by: [id number] CORRECTED REPORT --- Corrected on 12/22/18 1446 --- Troponin I previously reported as: 0.39 *C ng/mL Result TnIDx:0.39 Called to [id number] at: 13:52:23 by:[id number] Read back by: [id number] Troponin-I testing on Plasma Separator Tubes (PST) has a known false positive rate of 0.20-0.40%. All positive troponins reflex immediately to secondary confirmatory testing. Using the [employer] DxI 800 Access Immunoassay systems, the 99th percentile upper reference limit was demonstrated to be < 0.03 ng/mL. 29 Therapeutic target for the treatment of diabetes mellitus patients is <7% HBA1C, and in selective patients <6.0%. Please refer to [place] [employer] diabetic care guidelines for further information. 30 Because ethnic data is not always readily [...] (or dialysis) Procedures Date Code Description Status 04/20/2019 63257 Insert/Replace Icd W/Generator Completed 03/17/2019 13113 ECHO Transthoracic, Real-Time 2D With Doppler And Completed Color Flow 03/17/2019 76038 ECHO Transthoracic, Real-Time 2D With Doppler And Completed Color Flow 12/30/2018 67402 EKG Tracing & Interpretation Completed 12/26/2018 75282 EKG Tracing & Interpretation Completed 12/23/2018 21391 ECHO Transthorasic Realtime 2D W Doppler & Color Flow Completed Hosp 12/23/2018 44191 Treadmill Interp/Report Only Completed 12/23/2018 45588 Stress Test Supervsn W/Out I/R Completed 12/23/2018 70362 EKG, Interpretation Only Completed 12/22/2018 72111 ECHO Transthorasic Realtime 2D W Doppler & Color Flow Completed Hosp 12/22/2018 66236 EKG, Interpretation Only Completed 12/22/2018 23705 EKG Tracing & Interpretation Completed 09/26/2018 [id number] Diabetic Retinal Eye Exam Completed 08/01/2018 [id number] Mammogram Completed 03/11/2018 [id number] Colonoscopy Completed 09/26/2017 [id number] Diabetic Retinal Eye Exam Completed 03/15/2017 [id number] Diabetic Retinal Eye Exam Completed 12/07/2016 [id number] Mammogram Completed 09/07/2016 [id number] Diabetic Retinal Eye Exam Completed 12/02/2015 [id number] Mammogram Completed 11/19/2014 [id number] Mammogram Completed 06/28/2014 [id number] Diabetic Retinal Eye Exam Completed 11/20/2013 [id number] Mammogram Completed 09/09/2013 [id number] Diabetic Retinal Eye Exam Completed 11/13/2012 [id number] Mammogram Completed 08/20/2012 [id number] Diabetic Retinal Eye Exam Completed 05/15/2012 [id number] Mammogram Completed 12/26/2011 [id number] Mammogram Completed 12/13/2011 [id number] Mammogram Completed 08/31/2010 [id number] Colonoscopy Completed 11/13/2007 [id number] Mammogram Completed 05/14/2007 [id number] Mammogram Completed 10/18/2006 [id number] Mammogram Completed 05/07/2003 [id number] Mammogram Completed Medical Devices Description No Information Available Encounters Type Date Location Provider Dx Diagnosis Office Visit 04/28/2019 [facility] Steven Delgado I42.9 Cardiomyopathy, 1:00p Of [facility] [place] [facility] [place] Ordo[place]ez unspecified Z95.810 Presence of automatic (implantable) cardiac defibrillator Office Visit 04/07/2019 [place] Steven Delgado I42.9 Cardiomyopathy, 11:30a Cardiology Shasta Ordoñez M.D. unspecified [facility] R94.31 Abnormal electrocardiogram [ECG] [EKG] Office Visit 03/25/2019 [place] Danny Boyle I42.9 Cardiomyopathy, 10:15a Cardiology Shasta Melchor M.D., unspecified Body Stylist FACC, FASNC Office Visit 02/27/2019 [facility] Anni Vieira, R05 Cough 3:[facility] K21.9 Gastro-esophageal reflux disease without esophagitis Office Visit 02/06/2019 3:40p [facility] Milla Calero MD J06.9 Acute [facility], unspecified Office Visit 01/30/2019 2:00p [facility] Criss R05 [facility]ough [facility] Office Visit 12/30/2018 1:15p [facility] Danny Boyle I42.9 Cardiomyopathy, Of Marty Melchor M.D., unspecified FACC, FASNC I77.810 Thoracic aortic ectasia R94.31 Abnormal electrocardiogram [ECG] [EKG] Office Visit 12/26/2018 2:00p [facility] Criss R07.9 Chest pain, Medicine - Tom Lau unspecified Ccmob I45.4 Nonspecific intraventricular block I49.9 Cardiac arrhythmia, unspecified Office Visit 12/23/2018 [facility] Elif Mary, I42.9 Cardiomyopathy, 10:46a Assoc,beth [employer] unspecified Hospitalists R07.9 Chest pain, unspecified Office Visit 12/22/2018 [place] Danny Boyle R94.31 Abnormal 2:00p Cardiology Shasta Melchor M.D., electrocardiogram [facility] FACC, FASNC [ECG] [EKG] R07.89 Other chest pain I42.9 Cardiomyopathy, unspecified Office Visit 12/22/2018 [facility] Nino I42.9 Cardiomyopathy, 10:46a Assoc,pc PRECIOUS Ding unspecified Hospitalists R07.9 Chest pain, unspecified R06.02 Shortness of breath Office Visit 12/22/2018 11:00a [facility] Ingrid Macedo, R06.02 Shortness of Medicine - Suite DO breath R F17.290 Nicotine dependence, other tobacco product, uncomplicated Office Visit 12/01/2018 8:40a [facility] Criss D64.9 Anemia, Brandi Lau M.D. unspecified Ccmob R74.0 Nonspec elev of levels of transamns & lactic acid dehydrgnse E11.9 Type 2 diabetes mellitus without complications Assessments Date Code Description Provider 04/28/2019 I42.9 Cardiomyopathy, unspecified Steven Ordoñez M.D. 04/28/2019 Z95.810 Cardiac pacemaker in situ Steven Ordoñez M.D. 04/20/2019 I42.9 Cardiomyopathy, unspecified [...] M.D. [EKG] 03/25/2019 I42.9 Cardiomyopathy, unspecified Danny Montana Melchor M.D., [facility], [facility] 03/17/2019 I42.9 Cardiomyopathy, unspecified Danny Montana Melchor M.D., [facility], [facility] 03/17/2019 I42.9 Cardiomyopathy, unspecified Traveling ECHO 1 02/27/2019 R05 Cough Anni Vieira, N.P. 02/27/2019 K21.9 Gastro-esophageal reflux disease Anni Vieira, N.P. without esophagitis 02/06/2019 J06.9 Acute upper respiratory infection, Milla Calero MD unspecified 01/30/2019 R05 Cough Criss Lau M.D. 12/30/2018 I42.9 Cardiomyopathy, unspecified Danny Montana Melchor M.D., [facility], [facility] 12/30/2018 I77.810 Thoracic aortic ectasia Danny Melchor M.D., [facility], [facility] 12/30/2018 R94.31 Abnormal electrocardiogram [ECG] Danny Melchor M.D., [facility], [EKG] [facility] 12/26/2018 R07.9 Chest pain, unspecified Criss Lau M.D. 12/26/2018 I45.4 Nonspecific intraventricular block Criss Lau M.D. 12/26/2018 I49.9 Cardiac arrhythmia, unspecified Criss Lau M.D. 12/23/2018 R94.31 Abnormal electrocardiogram [ECG] Madhavi Chaudhary M.D. [EKG] 12/23/2018 R07.9 Chest pain, unspecified Catherine Bartlett MD, [facility], [facility] 12/23/2018 I42.9 Cardiomyopathy, unspecified Elif Mary, [employer] 12/23/2018 R07.9 Chest pain, unspecified Elif Mary, [employer] 12/22/2018 R94.31 Abnormal electrocardiogram [ECG] Madhavi Chaudhary M.D. [EKG] 12/22/2018 R94.31 Abnormal electrocardiogram [ECG] Danny Melchor M.D., [facility], [EKG] [facility] 12/22/2018 R07.89 Other chest pain Danny Melchor M.D., [facility], [facility] 12/22/2018 I42.9 Cardiomyopathy, unspecified Danny Melchor M.D., [facility], [facility] 12/22/2018 I42.9 Cardiomyopathy, unspecified PRECIOUS [...] Lau M.D. complications Plan of Treatment Future Appointment(s):05/13/2019 9:00 am - Danny Melchor M.D., [facility], FASIN at [facility]09/04/2019 9:45 am - Donald Alvarado M.D. at [facility] Xmkgub7405/28/2019 1:20 pm - Criss Lau M.D. at [facility] Internal Medicine - Ccm04/28/2019 - Steven Ordoñez M.D.I42.9 Cardiomyopathy , unspecifiedNew Medication:Bumetanide 1 mg - one a dayNew Orders:Interrogation Defibrillator, Ordered: 04/28/19Follow up:[address] MelchorZ95.810 Cardiac pacemaker in situ Functional Status Description No Information Available Mental Status Description No Information Available Referrals Refer to Dr Reason for Referral Status Appt Date Steven Ordoñez MD Dear Dr. Ordoñez, pt has persistent severe Sent non-ischemic CMP. Please evaluate Ms. Elias for ICD for primary prophylaxis for SCD. [facility] [place] [address] [phone]
--- OUTSIDE RECORDS SUMMARY | 2019-06-25 23:20 | XMS REPORT ---
:1960 Author Organization [facility] Care Team Providers Name Role Phone Yulissa [...] UID Location SNOMED-CT () 2019-01-09 completed [facility], [id number] Psychother [id number] SNOMED-CT () 2019-02-03 completed Mental apy, 45 4 Health- minutes [place] with [address], [id number] Psychother [id number] SNOMED-CT () 2019-03-17 completed Mental apy, 45 4 Health- minutes [place] with [address], [id number] SNOMED-CT () 2019-04-[address], [id number] Psychother 4672049 SNOMED-CT () 2019-04-14 completed Mental apy, 45 4 Health- minutes [place] with [address], [id number] SNOMED-CT () 2019-03-05 [facility], [id number] Encounters/Encounter Diagnoses Encounter Name Encounter Diagnosis Diagnosis Diagnosis Date of Service Code Code Name CodeSystem Diagnosis Delivery Location Psychotherapy - 93505 SNOMED-CT 2019-05-06 Behavioral Individual [facility] , , , Vital Signs No Information Social History Element Description Description Start End Code CodeSystem AdditionalInfo Date Date SexAssignedAtBirth Female 1959-04 F AdministrativeGender 06-10 Hospital Discharge Instructions Reason For Referral Medical Equipment FDA Assessments
--- OUTSIDE RECORDS SUMMARY | 2019-06-25 23:20 | XMS REPORT ---
:1960 Author Organization [facility] Care Team Providers Name Role [...] Procedure Delivery Code Name UID Location Psychother [id number] SNOMED-CT () 2019-04-14 completed Mental apy, 45 4 Health- minutes [place] with [address], [id number] Psychother 0665915 SNOMED-CT () 2019-02-03 completed Mental apy, 45 4 Health- minutes [place] with [address], [id number] [id number] Psychother 8025229 SNOMED-CT () 2019-03-17 completed Mental apy, 45 4 Health- minutes [place] with [facility] patient [address] [place] [address], [id number] SNOMED-CT () 2019-01-[address], [id number] SNOMED-CT () 2019-04-[address], [id number] Encounters/Encounter Diagnoses Encounter Name Encounter Diagnosis Diagnosis Diagnosis Date of Service Code Code Name CodeSystem Diagnosis Delivery Location Psychotherapy - 30645 SNOMED-CT 2019-04-14 Behavioral Individual [facility] [address] [place] [address], [id number] Vital Signs No Information Social History Element Description Description Start End Code CodeSystem AdditionalInfo Date Date SexAssignedAtBirth Female 1959-04 F AdministrativeGender 06-10 Hospital Discharge Instructions Reason For Referral Medical Equipment FDA Assessments
--- OUTSIDE RECORDS SUMMARY | 2019-06-25 23:20 | XMS REPORT | Continuity of Care Document ---
:1960 External Reference #:[id number] Author Name Criss Lau M.D. (transmitted by agent of provider Divya Artis ) Address [address] [facility] [address] [facility], [place] [address] Care Team Providers Name Role Phone Criss Lau MD - Internal Care Team Information Baking Assistant [phone] Medicine Luda Craig MD - Obstetrics & Care Team Information Baking Assistant Gynecology [facility]Diana Betancourt M.D. - Single Care Team Information Baking Assistant [facility] - Mental Care Team Information Baking Assistant [facility] Care Team Information Baking Assistant [phone] Roland Rey MD - Care Team Information Baking Assistant [phone] Otolaryngology Brittaney Altamirano O.D. - Collection Technician Care Team Information Baking Assistant Problems Active Problems Provider Date Type 2 diabetes mellitus Felicity Negrete M.D., FACP Onset: 07/13/2010 Pure hypercholesterolemia Felicity Negrete M.D., FACP Onset: 07/13/2010 Benign essential hypertension Felicity Negrete M.D., FACP Onset: 07/13/2010 Migraine without aura, not refractory Cherelle Francis M.D. Onset: 2014 Cardiomyopathy Danny Melchor M.D., [facility], Onset: 12/30/2018 FASNC Social History Type Date [...] Use Denies Drug Use Smoking Status Reviewed: 04/30/19 Patient is a former pt was vaping but smoker stop on 04/07/19 Exercise Type/Frequency Does not exercise Allergies, Adverse Reactions, Alerts Active Allergies Reaction Severity Comments Date Penicillin swelling 11/02/2009 Bee Sting 11/02/2009 Losartan cough 07/25/2015 Lisinopril cough 07/25/2015 Clindamycin sore throat 04/28/2019 Medications Active Medications SIG Qnty Indications Ordering Date Provider Venlafaxine HCL ER 1 by mouth every 30caps Criss 04/30/2019 75mg day Tom Lau Caps ER 24HR Bumetanide one a day 30tabs I42.9 Steven D. 04/28/2019 1mg Tablets Tom Odroñez Furosemide 1/2 pill by 30tabs I50.22 Cameron Rasheed MD 04/10/2019 20mg Tablets mouth every day for the next 3 days and then daily twice a week on Mondays and . Spironolactone Every Morning Unknown 03/26/2019 25mg Tablets Famotidine 1 by mouth twice 60tabs K21.9 Anni Vieira, 02/27/2019 20mg Tablets a day N.P. Epipen 2-Clifford use as directed 2units [facility] 01/30/2019 0.3mg/0.3ML Tom Lau Solution Auto-Inject Aldactone take one half 90tabs I42.9 Danny Boyle 12/30/2018 25mg Tablets tablet (12.5 mg) Tom Melchor, per day FACC, FASNC Atorvastatin Calcium 1 by mouth every 90tabs E78.5 Cameron Rasheed MD 2018 40mg day Tablets Carvedilol 1 by mouth twice 180tabs Criss 12/24/2018 6.25mg Tablets a day Tom Lau Aspirin Ec Low Dose Every Day Unknown 12/22/[address] Ferrous Gluconate take 1 tablet by 30tabs D50.9 Crsis 11/24/2018 mouth once daily Tom Lau 324(38Fe) [...] Miralax 17 gm every day 510units R10.13 [facility] Sid, 11/17/2015 3350NF Powder mixed w/ 8 oz M.D. water/juice as needed Gabapentin take one capsule by 90caps E11.40 Criss Sid, 02/25/2015 100mg mouth two times a M.D. Capsules day History Medications Clindamycin HCL Three Times 9caps Unknown 04/21/2019 - 300mg Daily 04/27/2019 Capsules Azithromycin two tabs day 6tabs R0 Anni Vieira, 02/27/2019 - 250mg one, one daily N.P. 03/09/2019 Tablets till gone Medrol 6 by mouth day 21units Anni Vieira, 02/27/2019 - 4mg TBPK 1, [...] 7 days Lisinopril 1 by mouth 90tabs [facility] Sid, 12/24/2018 - 2.5mg every day M.D. 01/30/2019 Tablets Albuterol Sulfate HFA inhale 2 puffs 8.500gm R06.02 Ingrid Macedo, 2018 - by mouth every DO 12/22/2018 108(90Base) mcg/Act 4 to 6 hours Aerosol if needed Citalopram Every Day Unknown 12/22/2018 - [...] CPT Code Status Date Vaccine Lot # [id number] Given 01/17/2018 Influenza Virus Vaccine, Quadrivalent, Split, [id number] Preservative Free 28174 Given 02/16/2016 Influ Virus Vaccine, Quadrivalent, Split Virus, [id number] [address] Given 01/21/2015 Influenza Virus Vaccine, Quadrivalent, Split, [id number] Preservative Free 08526 Given 01/24/2014 Flu Vaccine Split Virus Preservative Free For Indiv 3Yr Older 55549 Given 11/28/2011 Pneumonia Vaccine [id number] Given 03/21/2011 Afluria Vaccine [id number] 07123 Given 12/30/2009 Influenza Virus 3Yrs & Over 64465 Given 02/28/2009 Influenza Virus Vaccine, Pandemic Formulation 19230 Given 02/24/2009 Influenza Virus 3Yrs & Over 97407 Given 02/26/2008 Influenza Virus 3Yrs & Over 60311 Given 02/26/2008 Influenza Virus 3Yrs & Over 36001 Given 03/13/2007 Influenza Virus 3Yrs & Over 12699 Given 03/13/2007 Influenza Virus 3Yrs & Over 11590 Given 02/22/2006 Influenza Virus 3Yrs & Over Vital Signs Date Vital Result Comment 04/30/2019 10:43am Height 63 inches 5'3" Weight 179.00 lb Heart Rate 85 /min BP Systolic 134 mmHg BP Diastolic 82 mmHg O2 % BldC Oximetry 94 % BMI (Body Mass Index) 31.7 kg/m2 04/28/2019 12:48pm Height 63 inches 5'3" Weight 180.25 lb w/ shoes Heart Rate 86 /min R. radial, regular BP Systolic Sitting 120 mmHg Ra, reg cuff BP Diastolic Sitting 82 mmHg Ra, reg cuff BP Systolic Standing 126 mmHg Ra, reg cuff BP Diastolic Standing 84 mmHg Ra, reg cuff BMI (Body Mass Index) 31.9 kg/m2 Results Test Acquired Date Facility Test Result H/L Range Note Comp Metabolic 04/28/2019 [facility] Sodium 137 mmol/L Normal 135-[address] [place] [address] [phone] Potassium 3.6 mmol/L Normal 3.5-5.0 Chloride 106 [...] Egfr 109.0 >60 1 Laboratory test 04/28/2019 [facility] Troponin-I 0.01 <0.03 [address] (TnI) ng/[place] [address] [phone] CBC Auto Diff 04/28/2019 [facility] White Blood 7.1 Normal 3.5 -10.[address] Count 10^3/[place] [address] [phone] Red Blood Count 4.76 10^6/uL Normal 3.70-4.87 [...] Red Blood Cells % 0.0 Laboratory 04/28/2019 [facility] B-Type 443 pg/mL High <=100 test finding [address] [place] [address] Peptide BNP [phone] Laboratory 04/27/2019 [facility] Troponin-I 0.01 <0.03 3 test finding [address] (TnI) ng/[place] [address] [phone] CBC Auto Diff 04/27/2019 [facility] White Blood 6.1 Normal 3.5 -10.[address] Count 10^3/[place] [address] [phone] Red Blood Count 4.83 10^6/uL Normal 3.70-4.87 [...] Blood Cells % 0.1 Urinalysis Profile 04/27/2019 [facility] Urine Color Straw [address] [place] [address] [phone] Urine Appearance Clear Urine Specific [place] 1.002 Low 1.010-1.030 Urine pH 6.0 Normal 5-9 Urine Urobilinogen Negative Negative Urine Ketones Negative Negative Urine Protein Negative Negative Urine Leukocytes Negative Negative Urine Blood 1+ Abnormal Negative Urine Nitrite Negative Negative Urine Bilirubin Negative Negative Urine Glucose Negative Negative Urine White Blood Cell Absent Absent Urine Red Blood Cell Trace(0-2/hpf) Absent Urine Bacteria Absent Absent Laboratory test 04/27/2019 [facility] Lactic Acid 0.9 mmol/L Normal 0.5-2.0 4 finding [address] [place] [address] [phone] B-Type Natriuretic Peptide BNP 359 pg/mL High <=100 Troponin-I (TnI) 0.01 ng/mL <0.03 5 Comp Metabolic 04/27/2019 [facility] Sodium 140 mmol/L Normal 135-145 Panel [address] [place] [address] [phone] Potassium 3.7 mmol/L Normal 3.5-5.0 Chloride 105 [...] >60 Egfr 105.4 >60 6 Laboratory 04/27/2019 [facility] C Reactive 24.11 High <8.[address] Protein mg/[place] [address] [phone] CKMB 04/27/2019 [facility] CKMB ng/mL 0.8 ng/mL Normal 0.6- 6.[address] [place] [address] [phone] Laboratory 04/27/2019 [facility] D Dimer 610 ng/mL High Less [address] Quantitative Than 230 [place] [address] [phone] Basic 04/16/2019 [facility] Sodium 140 Normal 135-[address] mmol/[place] [address] [phone] Potassium 4.3 mmol/L Normal 3.5-5.0 Chloride 104 mmol/L Normal 101-111 Co2 Carbon Dioxide 25 mmol/L Normal 22-32 Anion Gap 11 mmol/L Normal 2-11 Glucose 94 mg/dL Normal 70-100 Blood Urea Nitrogen 10 mg/dL Normal 6-24 Creatinine 0.67 mg/dL Normal 0.51-0.95 BUN/Creatinine Ratio 14.9 Normal 8-20 Calcium 9.8 mg/dL Normal 8.6-10.3 Egfr Non- 90.1 >60 Egfr 109.0 >60 8 Inr/Protime 04/16/2019 [facility] Inr 1.03 Normal 0.82-1.[address] [place] [address] [phone] CBC Auto Diff 04/16/2019 [facility] White Blood 7.6 Normal 3.5 -10.[address] Count 10^3/[place] [address] [phone] Red Blood Count 5.14 10^6/uL High 3.70-4.87 [...] Blood Cells % 0.2 Pre Cath 04/16/2019 [facility] Partial 37.2 seconds Normal 26.0-38.0 [address] [place] [place] [address] PTT [phone] CBC Auto 04/03/2019 [facility] White Blood 8.2 10^3/uL Normal 3.5-10.[address] Count [place], [place] [address] [phone] Red Blood Count 5.45 10^6/uL High 3.70-4.87 [...] Blood Cells % 0.1 Urinalysis Profile 04/03/2019 [facility] Urine Color Yellow [address] [place] [address] [phone] Urine Appearance Clear Urine Specific [place] 1.002 Low 1.010-1.030 Urine pH 6.0 Normal [...] Cell Present Abnormal Absent Comp Metabolic 04/03/2019 [facility] Sodium 138 mmol/L Normal 135-145 Panel [address] [place] [address] [phone] Potassium 3.7 mmol/L Normal 3.5-5.0 Chloride 106 [...] Egfr 102.3 >60 11 Laboratory test 04/03/2019 [facility] Acetaminophen < 15 g/mL [address] [place] [address] [phone] Alcohol < 10 mg/dL Normal <10 Salicylate < 2.50 mg/dL <30 Urine Drug 04/03/2019 [facility] Urine None Detected None Detect SCR ED & [address] [place] [address] Screen [phone] Urine Barbiturates Screen None Detected None Detect Urine Benzodiazepine Screen None Detected None Detect Urine Cannabinoids Screen None Detected None Detect Urine Cocaine Screen None Detected None Detect Urine Opiates Screen None Detected None Detect Urine Phencyclidine Screen None Detected None Detect 13 Urine Culture And 04/03/2019 [facility] Urine Culture SEE RESULT [address] [place] [address] [phone] Laboratory test 03/26/2019 [facility] Troponin-I 0.01 ng/mL < 0.[address] (TnI) [place] [address] [phone] B-Type Natriuretic Peptide BNP 183 pg/mL High <=100 Basic Metabolic 03/26/2019 [facility] Sodium 140 mmol/L Normal 135-[address] [place] [address] [phone] Potassium 4.1 mmol/L Normal 3.5-5.0 Chloride 105 mmol/L Normal 101-111 Co2 Carbon Dioxide 26 mmol/L Normal 22-32 Anion Gap 9 mmol/L Normal 2-11 Glucose 95 mg/dL Normal 70-100 Blood Urea Nitrogen 13 mg/dL Normal 6-24 Creatinine 0.74 mg/dL Normal 0.51-0.95 BUN/Creatinine Ratio 17.6 Normal 8-20 Calcium 9.6 mg/dL Normal 8.6-10.3 Egfr Non- 80.6 >60 Egfr 97.5 >60 16 CBC Auto 03/26/2019 [facility] White Blood 6.5 10^3/uL Normal 3.5-10.[address] [place] [address] [phone] Red Blood Count 5.28 10^6/uL High 3.70-4.87 [...] Red Blood Cells % 0.0 Laboratory 03/26/2019 [facility] Partial 40.3 High 26.0-38.0 test finding [facility] [place] [address] Time PTT [phone] Inr/Protime 03/26/2019 [facility] Inr 1.03 Normal 0.82-1.09 17 [facility] [place] [address] [phone] Laboratory 03/26/2019 [facility] Troponin-I 0.01 ng/mL <0.03 18 test finding [facility] (TnI) [place] [address] [phone] Laboratory 01/28/2019 [facility] Troponin-I 0.03 ng/mL <0.04 19 test finding [facility] (TnI) [place], [place] [id number] [phone] Comp Metabolic 01/28/2019 [facility] Sodium 133 mmol/L Low 135 -145 Panel [facility] [employer] [place], [place] [address] [phone] Potassium 4.4 mmol/L Normal 3.5-5.0 Chloride 102 [...] >60 Egfr 85.4 >60 20 Laboratory 01/28/2019 [facility] Troponin-I 0.02 <0.04 21 test finding [address] (TnI) ng/mL [place], [place] [address] [phone] CBC Auto Diff 01/28/2019 [facility] White Blood 9.7 Normal 3.5 -10.[address] Count 10^3/[place] [address] [phone] Red Blood Count 5.32 10^6/uL High 3.70-4.87 [...] Red Blood Cells % 0.1 Laboratory 01/28/2019 [facility] B-Type 179 pg/mL High <=100 test finding [address] [place] [address] Peptide BNP [phone] CBC Auto Diff 01/09/2019 [facility] White Blood 6.5 Normal 3.5 -10.[address] Count 10^3/[place] [address] [phone] Red Blood Count 4.84 10^6/uL Normal 3.70-4.87 [...] Blood Cells % 0.0 Laboratory test 01/09/2019 [facility] C Reactive 5.85 mg/L Normal <8.[address] [place] [address] [phone] Liver Function 01/09/2019 [facility] Total Protein 7.1 g/dL Normal 6.4-8.[address] [place] [address] [phone] Albumin 3.9 g/dL Normal 3.2-5.2 Globulin 3.2 g/dL Normal 2-4 Albumin/Globulin Ratio 1.2 Normal 1-3 Total Bilirubin 1.20 mg/dL High 0.2-1.0 Direct Bilirubin 0.20 mg/dL High 0.03-0.18 Indirect Bilirubin 1.0 mg/dL Normal 0.3-1.0 Alkaline Phosphatase 129 U/L High 34-104 Alt 12 U/L Normal 7-52 Ast 12 U/L Low 13-39 Laboratory test 01/09/2019 [facility] GGTP 13 U/L Normal 9- 64.[address] [place] [address] [phone] Laboratory test 12/26/2018 [facility] Troponin-I 0.02 <0.04 [address] (TnI) ng/[place] [address] [phone] Comp Metabolic 12/26/2018 [facility] Sodium 138 Normal 135- [address] mmol/[place] [address] [phone] Potassium 3.7 mmol/L Normal 3.5-5.0 Chloride 106 [...] Egfr 117.4 >60 23 CBC Auto 12/26/2018 [facility] White Blood 7.8 10^3/uL Normal 3.5-10.[address] [place] [address] [phone] Red Blood Count 4.82 10^6/uL Normal 3.70-4.87 [...] Blood Cells % 0.1 Laboratory test 12/26/2018 [facility] Lactic Acid 0.9 mmol/L Normal 0.5-2.0 [address] [place] [address] [phone] CBC Auto Diff 12/22/2018 [facility] White Blood 7.1 Normal 3.5 -10.[address] Count 10^3/[place] [address] [phone] Red Blood Count 4.86 10^6/uL Normal 3.70-4.87 [...] Red Blood Cells % 0.0 Inr/Protime 12/22/2018 [facility] Inr 1.03 Normal 0.82-1.[address] [place] [address] [phone] Laboratory test 12/22/2018 [facility] Partial 38.7 High 26.0- 38.[address] [place] [address] Time PTT [phone] D Dimer Quantitative 453 ng/mL High Less Than 230 26 Comp Metabolic 12/22/2018 [facility] Sodium 139 mmol/L Normal 135-[address] [place] [address] [phone] Potassium 3.8 mmol/L Normal 3.5-5.0 Chloride 107 [...] Egfr 129.2 >60 27 Laboratory test 12/22/2018 [facility] Troponin-I (TnI) 0.03 ng/ mL <0.04 [address] [place] [address] [phone] B-Type Natriuretic Peptide BNP 248 pg/mL High <=100 CBC Auto 11/22/2018 [facility] White Blood 7.0 10^3/uL Normal 3.5-10.[address] [place] [address] [phone] Red Blood Count 4.71 10^6/uL Normal 3.70-4.87 [...] Blood Cells % 0.1 Laboratory test 11/22/2018 [facility] Hemoglobin A1c 6.5 % High 4.0-5.6 [address] (Glyco HGB) [place] [address] [phone] Comp Metabolic 11/22/2018 [facility] Sodium 139 Normal 135- [address] mmol/[place] [address] [phone] Potassium 4.2 mmol/L Normal 3.5-5.0 Chloride 105 [...] immediately to secondary confirmatory testing. Using the [employer] DxI 800 Access Immunoassay systems, the 99th percentile upper reference limit was demonstrated to be < 0.03 ng/mL. 3 Troponin-I testing on Plasma Separator Tubes (PST) has a known false positive rate of 0.20-0.40%. All positive troponins reflex immediately to secondary confirmatory testing. Using the [employer] DxI 800 Access Immunoassay systems, the 99th percentile upper reference limit was demonstrated to be < 0.03 ng/mL. 4 [facility] Severe Sepsis and Septic Shock Management Bundle Measure requires all lactic acids initially measuring >2.0 mmol/L be repeated. 5 Troponin-I testing on Plasma Separator Tubes (PST) has a known false positive rate of 0.20-0.40%. All positive troponins reflex immediately to secondary confirmatory testing. Using the [employer] DxI 800 Access Immunoassay systems, the 99th [...] purposes only. 14 SEE RESULT BELOW Name: ELIASODESSA A : [address]: Js Bradshaw MD Acct: [id number] Unit: [id number] AGE: 58 Location: ED Re04/03/19 SEX: F Status: DEP ER SPEC: [id number] ENRIQUE: 04/03/[address] [facility] [address]: Js Bradshaw MD REQ: [id number] RECD: 04/03/191 STATUS: [facility] DR: Criss Lau MD _ SOURCE: URINE SPDESC: ORDERED: Urine Culture Procedure Result Reported Site Urine Culture Final 04/04/19- 1007 ML Few Enterobacteriacae; possible contamination. * ML - Main Lab . END OF REPORT DEPARTMENT OF PATHOLOGY, [address] [place] [address] Roddy Villanueva M.D. Director [facility] # [id number] 15 Troponin-I testing on Plasma Separator Tubes (PST) has a known false positive rate of 0.20-0.40%. All positive troponins reflex immediately to secondary confirmatory testing. Using the [employer] DxI 800 Access Immunoassay systems, the 99th [...] immediately to secondary confirmatory testing. Using the [employer] DxI 800 Access Immunoassay systems, the 99th percentile upper reference limit was demonstrated to be < 0.03 ng/mL. 19 Troponin-I testing on Plasma Separator Tubes (PST) has a known false positive rate of 0.20-0.40%. All positive troponins reflex immediately to secondary confirmatory testing. Using the [employer] DxI 800 Access Immunoassay systems, the 99th [...] immediately to secondary confirmatory testing. Using the [employer] DxI 800 Access Immunoassay systems, the 99th percentile upper reference limit was demonstrated to be < 0.03 ng/mL. 22 Troponin-I testing on Plasma Separator Tubes (PST) has a known false positive rate of 0.20-0.40%. All positive troponins reflex immediately to secondary confirmatory testing. Using the [employer] DxI 800 Access Immunoassay systems, the 99th [...] 5 Kidney failure <15 (or dialysis) 24 [facility] Severe Sepsis and Septic Shock [...] failure <15 (or dialysis) 28 Verbal to [id number] by [id number] at 1446 on 12/22/18. Results read back accurately. Corrected Report. Result TnIDx:0.39 Called to [id number] at: 13:52:23 by:[id number] Read back by: [id number] CORRECTED REPORT --- Corrected on 12/22/18 1446 --- Troponin I previously reported as: 0.39 *C ng/mL Result TnIDx:0.39 Called to [id number] at: 13:52:23 by:[id number] Read back by: [id number] Troponin-I testing on Plasma Separator Tubes (PST) has a known false positive rate of 0.20-0.40%. All positive troponins reflex immediately to secondary confirmatory testing. Using the [employer] DxI 800 Access Immunoassay systems, the 99th percentile upper reference limit was demonstrated to be < 0.03 ng/mL. 29 Therapeutic target for the treatment of diabetes mellitus patients is <7% HBA1C, and in selective patients <6.0%. Please refer to [place] [employer] diabetic care guidelines for further [...] dialysis) Procedures Date Code Description Status 04/20/2019 44405 Insert/Replace Icd W/Generator Completed 03/17/2019 28718 ECHO Transthoracic, Real-Time 2D With Doppler And Completed Color Flow 03/17/2019 28663 ECHO Transthoracic, Real-Time 2D With Doppler And Completed Color Flow 12/30/2018 79326 EKG Tracing & Interpretation Completed 12/26/2018 67527 EKG Tracing & Interpretation Completed 12/23/2018 75393 ECHO Transthorasic Realtime 2D W Doppler & Color Flow Completed Hosp 12/23/2018 41988 Treadmill Interp/Report Only Completed 12/23/2018 68867 Stress Test Supervsn W/Out I/R Completed 12/23/2018 38296 EKG, Interpretation Only Completed 12/22/2018 31678 ECHO Transthorasic Realtime 2D W Doppler & Color Flow Completed Hosp 12/22/2018 67354 EKG, Interpretation Only Completed 12/22/2018 93523 EKG Tracing & Interpretation Completed 09/26/2018 [id number] Diabetic Retinal Eye Exam Completed 08/01/2018 66204534 Mammogram Completed 03/11/2018 95900617 Colonoscopy Completed 09/26/2017 [id number] Diabetic Retinal Eye Exam Completed 03/15/2017 [id number] Diabetic Retinal Eye Exam Completed 12/07/2016 [id number] Mammogram Completed 09/07/2016 053251516 Diabetic Retinal Eye Exam Completed 12/02/2015 87683599 Mammogram Completed 11/19/2014 22199406 Mammogram Completed 06/28/2014 [id number] Diabetic Retinal Eye Exam Completed 11/20/2013 40016809 Mammogram Completed 09/09/2013 665774300 Diabetic Retinal Eye Exam Completed 11/13/2012 54027657 Mammogram Completed 08/20/2012 501740320 Diabetic Retinal Eye Exam Completed 05/15/2012 27783993 Mammogram Completed 12/26/2011 43408131 Mammogram Completed 12/13/2011 [id number] Mammogram Completed 08/31/2010 [id number] Colonoscopy Completed 11/13/2007 [id number] Mammogram Completed 05/14/2007 25536704 Mammogram Completed 10/18/2006 45047803 Mammogram Completed 05/07/2003 22339677 Mammogram Completed Medical Devices Description No Information Available Encounters Type Date Location Provider Dx Diagnosis Office Visit 04/07/2019 [facility] Steven Delgado I42.9 Cardiomyopathy, 11:30a Of Marty Ordoñez M.D. unspecified R94.31 Abnormal electrocardiogram [ECG] [EKG] Office Visit 03/25/2019 [facility] Danny Boyle I42.9 Cardiomyopathy, 10:15a Cardiology Shasta Melchor M.D., unspecified [facility] FACC, FASNC Office Visit 02/27/2019 [facility] Internal Anni Vieira, R05 Cough [facility] K[facility] Gastro-esophageal reflux disease without esophagitis Office Visit 02/06/2019 3:40p [facility] Internal Milla Calero MD J06.9 Acute [facility], unspecified Office Visit 01/30/2019 2:00p [facility] Internal Criss R05 [facility] Office Visit 12/30/2018 1:15p [facility] Danny Boyle I42.9 Cardiomyopathy, Of Marty Melchor M.D., unspecified FACC, FASNC I77.810 Thoracic aortic ectasia R94.31 Abnormal electrocardiogram [ECG] [EKG] Office Visit 12/26/2018 2:00p [facility] Internal Criss R07.9 Chest pain, Brandi Lau M.D. 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 FACC, FASNC [ECG] [EKG] R07.89 Other chest pain I42.9 Cardiomyopathy, unspecified Office Visit 12/22/2018 [facility] Nino I42.9 Cardiomyopathy, 10:46a Assoc,pc PRECIOUS Ding unspecified Hospitalists R07.9 Chest pain, unspecified R06.02 Shortness of breath Office Visit 12/22/2018 11:00a [facility] Internal Ingrid Macedo, R06.02 Shortness of Medicine - Suite DO breath R F17.290 Nicotine dependence, other tobacco product, uncomplicated Office Visit 12/01/2018 8:40a [facility] Internal Criss D64.9 Anemia, Brandi Lau M.D. unspecified Ccmob R74.0 Nonspec elev of levels of transamns & lactic acid dehydrgnse E11.9 Type 2 diabetes mellitus without complications Assessments Date Code Description Provider 04/30/2019 F41.9 Anxiety disorder, unspecified Criss Lau [...] 03/25/2019 I42.9 Cardiomyopathy, unspecified Danny Melchor M.D., [facility] [place] 03/17/2019 I42.9 Cardiomyopathy, unspecified Danny Melchor M.D., [facility], [facility] [place] 03/17/2019 I42.9 Cardiomyopathy, unspecified Traveling ECHO 1 02/27/2019 R05 Cough Anni Vieira, N.P. 02/27/2019 K21.9 Gastro-esophageal reflux disease Anni Vieira, N.P. without esophagitis 02/06/2019 J06.9 Acute upper respiratory infection, Milla Calero MD unspecified 01/30/2019 R05 April Lau M.D. 12/30/2018 I42.9 Cardiomyopathy, unspecified Danny Melchor M.D., [facility], [facility] [place] 12/30/2018 I77.810 Thoracic aortic ectasia Dnany Melchor M.D., [facility], [facility] [place] 12/30/2018 R94.31 Abnormal electrocardiogram [ECG] Danny Melchor M.D., [facility], [EKG] [facility] [place] 12/26/2018 R07.9 Chest pain, unspecified Criss Lau M.D. 12/26/2018 I45.4 Nonspecific intraventricular block Criss Lau M.D. 12/26/2018 I49.9 Cardiac arrhythmia, unspecified Criss Lau M.D. 12/23/2018 R94.31 Abnormal electrocardiogram [ECG] Madhavi Chaudhary M.D. [EKG] 12/23/2018 R07.9 Chest pain, unspecified Catherine Bartlett MD, [facility], [facility] 12/23/2018 I42.9 Cardiomyopathy, unspecified Elif Mary, [employer] 12/23/2018 R07.9 Chest pain, unspecified Elif Mary, [employer] 12/22/2018 R94.31 Abnormal electrocardiogram [ECG] Madhavi Chaudhary M.D. [EKG] 12/22/2018 R94.31 Abnormal electrocardiogram [ECG] Danny Melchor M.D., [facility], [EKG] [facility] [place] 12/22/2018 R07.89 Other chest pain Danny Melchor M.D., [facility], [facility] [place] 12/22/2018 I42.9 Cardiomyopathy, unspecified Danny Melchor M.D., [facility], [facility] [place] 12/22/2018 I42.9 Cardiomyopathy, unspecified PRECIOUS [place] 12/22/2018 [...] Appointment(s):05/13/2019 9:00 am - Danny Melchor M.D., FACC, FASSC at [facility]09/04/2019 9:45 am - Donald Alvarado M.D. at [facility]2005/28/2019 1:20 pm - Criss Lau M.D. at [facility] Internal Medicine - [facility]04/30/2019 - Criss Lau M.D.F41.9 Anxiety disorder, unspecifiedComments:Reduce caffeine - switch to decaff teaAvoid daytime naps especially late in the day Stop the nortriptylineStop the citalopramStart venlafaxine tomorrowFollow up:CHRISTINA for counselor Yulissa Dallas at [facility] Functional Status Description No Information Available Mental Status Description No Information Available Referrals Refer to Dr Reason for Referral Status Appt Date Steven Ordoñez MD Dear Dr. Ordoñez, pt has persistent severe Sent non-ischemic CMP. Please evaluate Ms. Elias for ICD for primary prophylaxis for SCD. [address] [place] [id number] [phone]
[2019-06-25 23:32] LABS: ALT 15 U/L (7-52); Albumin 3.7 g/dL (3.2-5.2); Albumin/Globulin Ratio 1.1 (1-3); Alkaline Phosphatase 84 U/L (34-104); BUN/Creatinine Ratio 20.9 (8-20); Blood Urea Nitrogen 19 mg/dL (6-24); CO2 Carbon Dioxide 26 mmol/L (22-32); Calcium 9.3 mg/dL (8.6-10.3); Chloride 102 mmol/L (101-111); EGFR African American 76.6 (>60); EGFR Non-African American 63.3 (>60); Globulin 3.3 g/dL (2-4); Glucose 112 mg/dL (70-100); Sodium 136 mmol/L (135-145)
[2019-06-25 23:34] LABS: Troponin I 0.01 ng/mL (<0.03)
[2019-06-26 00:10] LABS: Anion Gap 8 mmol/L (2-11)
[2019-06-26 00:38] LABS: TSH (Thyroid Stimulating Horm) 2.66 mcIU/mL (0.34-5.60)
[2019-06-26 00:55] VITALS: BP 97/58
== END 2019-06-26 00:55 | disposition home or self-care (01) ==
LOC: ED 22:33
DX: R55 Syncope and collapse (principal); S50.02XA Contusion of left elbow, initial encounter; W18.30XA Fall on same level, unspecified, initial encounter; Y93.89 Activity, other specified; Y92.009 Unspecified place in unspecified non-institutional (private) residence as the place of occurrence of the external cause; M19.022 Primary osteoarthritis, left elbow; E11.9 Type 2 diabetes mellitus without complications; Z79.84 Long term (current) use of oral hypoglycemic drugs; E78.00 Pure hypercholesterolemia, unspecified; I10 Essential (primary) hypertension; K21.9 Gastro-esophageal reflux disease without esophagitis; F32.9 Major depressive disorder, single episode, unspecified; Z95.0 Presence of cardiac pacemaker; Z79.82 Long term (current) use of aspirin; Z79.899 Other long term (current) drug therapy; Z88.0 Allergy status to penicillin; Z88.8 Allergy status to other drugs, medicaments and biological substances; Z88.1 Allergy status to other antibiotic agents; Z91.030 Bee allergy status; F17.210 Nicotine dependence, cigarettes, uncomplicated
CPT/HCPCS: 36415; 80053; 83605; 83735; 84443; 84484; 85025; 93005; 96360; 99281; 99283

== ENCOUNTER 2021-07-07 10:33 | Observation (INO) ==
[2021-07-07 12:22] LABS: ABS Basophils 0.1 10^3/ul (0-0.2); ABS Eosinophils 0.1 10^3/ul (0-0.6); ABS Lymphocytes 1.3 10^3/ul (1.0-4.8); ABS Monocytes 0.6 10^3/ul (0-0.8); ABS Neutrophils 5.9 10^3/ul (1.5-7.7); Eosinophil % 1.2 %; Hematocrit 41 % (35-47); Hemoglobin 13.7 g/dL (12.0-16.0); Lymphocyte % 16.5 %; Mean Corpuscular HGB Conc 34 g/dL (31-36); Mean Corpuscular Hemoglobin 28 pg (27-31); Mean Corpuscular Volume 84 fL (80-97); Mean Platelet Volume 8.4 fL (7.4-10.4); Platelet Count 355 10^3/uL (150-450); Red Blood Count 4.88 10^6 /uL (3.70-4.87); Red Cell Distribution Width 16 % (10-15)
[2021-07-07 12:44] LABS: High Sens Troponin Baseline 8 pg/mL (<15)
[2021-07-07 12:48] LABS: ALT 19 U/L (7-52); Albumin/Globulin Ratio 1.2 (1-3); Alkaline Phosphatase 110 U/L (35-149); Blood Urea Nitrogen 16 mg/dL (6-24); CO2 Carbon Dioxide 30 mmol/L (22-32); Calcium 9.4 mg/dL (8.6-10.3); Chloride 101 mmol/L (101-111); Globulin 3.4 g/dL (2-4); Glucose 97 mg/dL (70-100); Sodium 141 mmol/L (135-145); Total Protein 7.4 g/dL (6.4-8.9)
[2021-07-07 12:55] LABS: HCG Pregnancy 3.31 mIU/mL
[2021-07-07 13:01] LABS: Anion Gap 10 mmol/L (2-11)
[2021-07-07 13:03] LABS: TSH Ultra Thyroid Stim Horm 0.95 mcIU/mL (0.34-5.60)
[2021-07-07] MEDS ORDERED: Iodixanol (CONTRAST) 320 MG/ML 100 ML SDV IV ONE (13:06)
[2021-07-07 15:09] LABS: Potassium Redraw 3.7 mmol/L (3.5-5.0)
[2021-07-07] MEDS ORDERED: Albuterol HFA INHALER 8 gm MDI INH PRN (16:20)
[2021-07-07] MEDS ORDERED: Polyethylene Glycol 3350 17 GM PACKET PO PRN (16:20)
[2021-07-07] MEDS: Latanoprost 0.005% 2.5 ml BTL BOTH EYES SCH (23:29)
[2021-07-08 07:07] LABS: ABS Basophils 0.1 10^3/ul (0-0.2); ABS Eosinophils 0.1 10^3/ul (0-0.6); ABS Lymphocytes 1.5 10^3/ul (1.0-4.8); ABS Monocytes 0.8 10^3/ul (0-0.8); Hematocrit 36 % (35-47); Hemoglobin 12.2 g/dL (12.0-16.0); Lymphocyte % 20.2 %; Mean Corpuscular HGB Conc 34 g/dL (31-36); Mean Corpuscular Hemoglobin 28 pg (27-31); Mean Corpuscular Volume 85 fL (80-97); Mean Platelet Volume 8.6 fL (7.4-10.4); Platelet Count 330 10^3/uL (150-450); Red Blood Count 4.28 10^6 /uL (3.70-4.87); Red Cell Distribution Width 16 % (10-15); White Blood Count 7.4 10^3/uL (3.5-10.8)
[2021-07-08 07:26] LABS: Albumin 3.5 g/dL (3.2-5.2); Albumin/Globulin Ratio 1.2 (1-3); Calcium 9.3 mg/dL (8.6-10.3); Globulin 2.9 g/dL (2-4); Potassium 3.9 mmol/L (3.5-5.0); Total Bilirubin 1.5 mg/dL (0.2-1.0); Total Protein 6.4 g/dL (6.4-8.9); eGFR CKD-EPI 98.3 (>60)
[2021-07-08] MEDS: Venlafaxine XR 75 mg PO SCH (09:25)
[2021-07-08] MEDS ORDERED: Calcium Carb (TUMS) 500 mg CHEW TAB PO PRN (13:42)
[2021-07-08] MEDS: Latanoprost 0.005% 2.5 ml BTL BOTH EYES SCH (20:05)
[2021-07-09] MEDS: Venlafaxine XR 75 mg PO SCH (09:19)
[2021-07-09] MEDS ORDERED: Perflutren Lipid Microsphere 3 ML VIAL ONE (11:39)
[2021-07-09] MEDS: Latanoprost 0.005% 2.5 ml BTL BOTH EYES SCH (20:26)
[2021-07-10] MEDS ORDERED: Regadenoson 0.4 MG/5 ML SYRINGE ONE (09:53)
[2021-07-10] MEDS ORDERED: Aminophylline 25 MG/ML VIAL ONE (09:53)
[2021-07-10] MEDS: Venlafaxine XR 75 mg PO SCH (11:27)
[2021-07-10 12:35] VITALS: BP 114/58
== END 2021-07-10 16:10 | disposition home or self-care (01) ==
LOC: ED 10:33 → EDHOLD 10:33 → MEDTELE 21:40
PROVIDERS: ADMIT Nurse Practitioner; ATTEND Hospitalist